=== PATIENT | female | born 1950 | race Caucasian/White ===

== ENCOUNTER → 2016-09-18 | Outpatient (CLI) | payer MEDICARE, OTHER ==
--- NOTE | 2016-09-18 20:50 | CT ---
EXAMINATION TYPE: CT abdomen pelvis wo con DATE OF EXAM: 09/18/2016 8:10 PM COMPARISON: 10/14/2011 HISTORY: Abdominal distention CT DLP: 315.3 mGycm Automated exposure control for dose reduction was used. TECHNIQUE: Helical acquisition of images was performed from the lung bases through the pelvis. FINDINGS: &&&&&&&&&&& IMPRESSION: RIGHT NEPHRECTOMY. MODERATE ATHEROSCLEROTIC VASCULAR DISEASE. THERE IS PROBABLY HEMODYNAMICALLY SIGNI FICANT STENOSIS IN THE ILIAC ARTERIES. NO SIGN OF ACUTE ABDOMEN AND PELVIS. NO ADVERSE CHANGE COMPARE D TO OLD EXAM.
== END | disposition home or self-care (01) ==
LOC: RADCTMAIN 18:07
PROVIDERS: ATTEND Family Medicine
DX: I70.90 Unspecified atherosclerosis (principal); Z90.5 Acquired absence of kidney
CPT/HCPCS: 36415; 74176; 82565; 84520

== ENCOUNTER → 2016-11-09 | Outpatient (CLI) | payer MEDICARE, OTHER ==
--- NOTE | 2016-11-09 13:46 | MR ---
EXAMINATION TYPE: MR knee LT wo con DATE OF EXAM: 11/09/2016 1:34 PM COMPARISON: NONE HISTORY: Left knee pain TECHNIQUE: Multiplanar, multisequence imaging of the left knee is performed without IV contrast. FINDINGS: Exam limited by motion artifact. MEDIAL MENISCUS: Anterior and posterior horns are intact without tear. LATERAL MENISCUS: Anterior and posterior horns are intact without tear. CRUCIATE LIGAMENTS: The anterior and posterior cruciate ligaments are intact and unremarkable. COLLATERAL LIGAMENTS: The medial collateral ligament and lateral collateral ligament complex are inta ct and unremarkable. EXTENSOR MECHANISM: Visualized quadriceps and patellar tendons are intact. EFFUSION: Tiny amount of fluid in the suprapatellar bursa. POPLITEAL CYST: No popliteal/nazario cyst. TRICOMPARTMENT SPACES: There is fibrillation of the articular cartilage of the lateral femur. There i s a focal grade 3 area of chondromalacia involving the femoral and tibial articular cartilage with a 6 mm defect involving the medial femoral articular cartilage. No loose body. Joint space narrowing is seen correlate for osteoarthritis. No erosive changes. BONE MARROW SIGNAL: No focal abnormal marrow signal is appreciated. OTHER: No additional significant abnormality is appreciated. IMPRESSION: 1. Osteoarthritis with chondromalacia involving the medial and lateral compartments of the knee joint as discussed above. 2. No ligamentous or meniscal tear.
== END | disposition home or self-care (01) ==
LOC: RADMRIMAIN 12:18
PROVIDERS: ATTEND Orthopaedic Surgery
DX: M94.262 Chondromalacia, left knee (principal); M17.12 Unilateral primary osteoarthritis, left knee
CPT/HCPCS: 70551

== ENCOUNTER → 2016-11-09 | Outpatient (CLI) | payer MEDICARE, OTHER ==
--- NOTE | 2016-11-09 13:36 | MR ---
EXAMINATION TYPE: MR brain wo con DATE OF EXAM: 11/09/2016 1:18 PM COMPARISON: CT brain July 08, 2014. HISTORY: Frontal stroke per order. Symptoms of right-sided he aring loss per patient with left-sided weakness and numbness. TECHNIQUE: Multiplanar, multisequence imaging of the brain and brainstem is performed without IV cont rast. FINDINGS: Diffusion weighted images demonstrate no evidence of a recent infarct or other diffusion abnormality. There is no worrisome extra-axial fluid collection. There is persistent mild ventricular and sulcal p rominence. A few scattered foci of T2 periventricular hyperintensity are noted. There is old area of encephalomalacia in the right frontal lobe 7 and axial image 23 redemonstrated measuring approximatel y 3.4 x 1.4 cm. Midline structures demonstrate normal morphology. The craniocervical junction appears within normal limits. Normal vascular flow voids are present. There is moderate mucosal thickening in visualized po rtion of smaller left maxillary sinus. Remainder paranasal sinuses are clear. There is new thinning o f the right lens, correlate for cataract. Increased fluid signal left mastoid air cells is redemonstr ated. IMPRESSION: There is old infarct or encephalomalacia in the right frontal lobe redemonstrated. There is background of mild diffuse cerebral atrophy and chronic small vessel ischemic change. There is marquis pected chronic left-sided mastoiditis redemonstrated and chronic left maxillary sinus disease. No nina dence of a recent infarct.
== END | disposition home or self-care (01) ==
LOC: RADMRIMAIN 12:22
PROVIDERS: ATTEND Psychiatry & Neurology Neurology
DX: Z86.73 Personal history of transient ischemic attack (TIA), and cerebral infarction without residual deficits (principal)
CPT/HCPCS: 70551

== ENCOUNTER → 2017-06-01 | Outpatient (CLI) | payer MEDICARE, OTHER ==
[2017-06-01 08:14] LABS: Potassium 4.5 mmol/L (3.5-5.1)
== END | disposition home or self-care (01) ==
LOC: LABWHC1 07:16
PROVIDERS: ATTEND Psychiatry & Neurology Psychiatry
DX: Z51.81 Encounter for therapeutic drug level monitoring (principal); Z79.899 Other long term (current) drug therapy
CPT/HCPCS: 36415; 80051

== ENCOUNTER 2017-11-07 12:48 | Inpatient (IN) | payer MEDICARE, OTHER ==
[2017-11-07 13:17] LABS: Glucose,Whole Blood 93 mg/dL (75-99)
[2017-11-07] MEDS ORDERED: SODIUM CHLORIDE 0.9% 1,000 ML IV STA (13:23)
[2017-11-07] MEDS ORDERED: RX INFO: IV CONTRAST WAS GIVEN 1 EACH MISC MISCELLANE PRN (13:24)
--- NOTE | 2017-11-07 13:30 | ED ---
General Adult HPI - General Chief complaint: Weakness Stated complaint: neck swelling/ Time Seen by Provider: 11/07/17 13:13 Source: patient, family, RN notes reviewed Mode of arrival: wheelchair Limitations: no limitations - History of Present Illness Initial comments: Patient is a pleasant 67-year-old female presenting to the emergency department with complaints of right-sided neck pain. Onset was in the middle the night. Patient states discomfort is fairly persistent. Patient is somewhat a poor historian and daughter provides majority of history. No difficulty swallowing. Patient does feel somewhat short of breath. Patient has been shaky and somewhat weaker than normal recently. Patient has known 100% carotid stenosis on the right side since 2004. - Related Data Home Medications Medication Instructions Recorded Confirmed PARoxetine HCL 30 mg PO HS 07/02/14 11/07/17 OXcarbazepine [Trileptal] 150 mg PO HS 11/04/14 11/07/17 Melatonin 3 mg PO HS 03/05/16 11/07/17 Metoprolol Tartrate [Lopressor] 25 mg PO BID 03/05/16 11/07/17 PARoxetine HCL [Paxil] 30 mg PO DAILY 03/05/16 11/07/17 Atorvastatin Calcium [Lipitor] 20 mg PO DAILY 06/13/17 11/07/17 Calcium Polycarbophil [Fibercon] 1,250 mg PO DAILY 06/13/17 11/07/17 Clopidogrel Bisulfate [Plavix] 75 mg PO DAILY 06/13/17 11/07/17 Ferrous Sulfate [Iron (65 MG 325 mg PO DAILY 06/13/17 11/07/17 Elemental)] Furosemide [Lasix] 40 mg PO DAILY 06/13/17 11/07/17 Levothyroxine Sodium [Synthroid] 100 mcg PO DAILY 06/13/17 11/07/17 Lurasidone HCl [Latuda] 20 mg PO DAILY 06/13/17 11/07/17 Magnesium Oxide [Mag-Ox] 400 mg PO DAILY 06/13/17 11/07/17 Montelukast [Singulair] 10 mg PO HS 06/13/17 11/07/17 Pantoprazole Sodium [Protonix] 40 mg PO DAILY 06/13/17 11/07/17 Potassium Chloride [Klor-Con 10] 10 meq PO DAILY 06/13/17 11/07/17 Fluticasone/Vilanterol [Breo 1 puff INHALATION RT-DAILY 06/14/17 11/07/17 Ellipta 100-25 Mcg Inhaler] Tiotropium Leonidas [Spiriva] 1 cap INHALATION RT-DAILY 06/14/17 11/07/17 Previous Rx's Medication Instructions Recorded Rivaroxaban [Xarelto] 15 mg PO W/SUPPER #30 tab 06/16/17 Allergies Allergy/AdvReac Type Severity Reaction Status Date / Time latex Allergy Rash/Hives Verified 11/07/17 13:23 Penicillins Allergy Unknown Verified 11/07/17 13:23 Childhood Review of Systems ROS Statement: Those systems with pertinent positive or pertinent negative responses have been documented in the HPI. ROS Other: All systems not noted in ROS Statement are negative. Constitutional: Denies: fever Eyes: Denies: eye pain ENT: Denies: ear pain Respiratory: Reports: dyspnea. Denies: cough Cardiovascular: Denies: chest pain Endocrine: Reports: fatigue Gastrointestinal: Denies: abdominal pain Genitourinary: Denies: dysuria Musculoskeletal: Denies: back pain Skin: Denies: rash Neurological: Denies: weakness Past Medical History Past Medical History: Atrial Fibrillation, Coronary Artery Disease (CAD), Cancer , COPD, CVA/TIA, GERD/Reflux, Hyperlipidemia, Memory Impairment, Myocardial Infarction ([place]), Osteoarthritis (OA), Sleep Apnea/CPAP/BIPAP, Thyroid Disorder, Vascular Disorder Additional Past Medical History / Comment(s): 11/28/14 Pt presented to floor s/p PTCA with stenting by Dr. Bernal today. Other HX: VASCULAR DEMENTIA. NO CPAP/ BIPAP. Hypothyroidism, RESTLESS LEG, RIGHT CAROTID BLOCKED 40-60%. LEFT CAROTID 100% BLOCK-endarectomy done, hx kidney cancer, uses O2 PRN, diverticulosis, IBS, PVD Last Myocardial Infarction Date:: 11/03/14 History of Any Multi-Drug Resistant Organisms: C-DIFF Date of last positivie culture/infection: 2013 Past Surgical History: Cholecystectomy, Ear Surgery, Heart Catheterization With Stent, Hysterectomy, Orthopedic Surgery Additional Past Surgical History / Comment(s): 11/28/14 PTCA with stent, left CAROTID ENDARTERECTOMY. RIGHT NEPHRECTOMY. BILATERAL STENTS IN LOWER EXTREMITIES , L elbow surgery, R ear surgery for blockage. ankle Past Anesthesia/Blood Transfusion Reactions: Motion Sickness Date of Last Stent Placement:: 10/2014 Past Psychological History: Bipolar Smoking Status: Former smoker Past Alcohol Use History: None Reported Past Drug Use History: None Reported - Past Family History Mother Family Medical History: COPD Additional Family Medical History / Comment(s): Mother is . She from respiratory failure. Father Family Medical History: Coronary Artery Disease (CAD), Myocardial Infarction ([place] ) Additional Family Medical History / Comment(s): Father had gout General Exam Limitations: no limitations General appearance: alert, in no apparent distress Head exam: Present: atraumatic Eye exam: Present: normal appearance, PERRL, EOMI ENT exam: Present: normal oropharynx Neck exam: Present: normal inspection, tenderness (Tenderness to the right sternocleidomastoid muscle.), other (No swelling or discoloration.) Respiratory exam: Present: normal lung sounds bilaterally. Absent: chest wall tenderness Cardiovascular Exam: Present: tachycardia, irregular rhythm GI/Abdominal exam: Present: soft. Absent: tenderness Extremities exam: Present: normal inspection. Absent: pedal edema, calf tenderness Neurological exam: Present: alert, CN II-XII intact. Absent: motor sensory deficit Psychiatric exam: Present: normal affect, normal mood Skin exam: Present: normal color. Absent: rash Course Vital Signs 11/07/17 11/07/17 11/07/17 12:53 13:50 14:50 Temperature 96.9 F L Pulse Rate 80 97 88 Respiratory 20 16 18 Rate Blood Pressure 80/64 107/67 103/62 O2 Sat by Pulse 96 93 L 94 L Oximetry - Reevaluation(s) Reevaluation #1: 11/07/17 16:22 Patient does meet sepsis criteria diagnosed at 1622 secondary to elevated white blood cell count and tachycardia with urinary tract infection. Blood culture and lactic acid and IV antibiotics have been added. EKG Findings - EKG Comments: EKG Findings:: A. fib with rate of 111. QRS 106. QT 386. QTc 524. Right axis. Incomplete right bundle-branch block. No acute ST change. Medical Decision Making - Medical Decision Making Patient reevaluated and resting comfortably in bed. Patient and family were updated on results and plan. Case was discussed with Dr. Juárez, who will admit for [facility]. - Lab Data Result diagrams: 11/07/17 13:44 11/07/17 13:44 Lab Results 11/07/17 11/07/17 11/07/17 Range/Units 13:15 13:44 13:44 WBC 11.4 H (3.8-10.6) k/uL RBC 5.90 H (3.80-5.40) m/uL Hgb 15.0 (11.4-16.0) gm/dL Hct 48.3 H (34.0-46.0) % MCV 82.0 (80.0-100.0) fL MCH 25.4 (25.0-35.0) pg MCHC 31.0 (31.0-37.0) g/dL RDW 16.6 H (11.5-15.5) % Plt Count 351 (150-450) k/uL Neutrophils % 70 % Lymphocytes % 17 % Monocytes % 10 % Eosinophils % 2 % Basophils % 0 % Neutrophils # 7.9 H (1.3-7.7) k/uL Lymphocytes # 2.0 (1.0-4.8) k/uL Monocytes # 1.1 H (0-1.0) k/uL Eosinophils # 0.2 (0-0.7) k/uL Basophils # 0.0 (0-0.2) k/uL Hypochromasia Slight Anisocytosis Slight PT (9.0-12.0) sec INR (<1.2) APTT (22.0-30.0) sec Sodium (137-145) mmol/L Potassium (3.5-5.1) mmol/L Chloride (98-107) mmol/L Carbon Dioxide (22-30) mmol/L Anion Gap mmol/L BUN (7-17) mg/dL Creatinine (0.52-1.04) mg/dL Est GFR (CKD-EPI)AfAm (>60 ml/min/1.73 sqM) Est GFR (CKD-EPI)NonAf (>60 ml/min/1.73 sqM) Glucose (74-99) mg/dL POC Glucose (mg/dL) 93 (75-99) mg/dL POC Glu Nurse Infection Control ID McDaid, Mirian Calcium (8.4-10.2) mg/dL Total Bilirubin (0.2-1.3) mg/dL AST (14-36) U/L ALT (9-52) U/L Alkaline Phosphatase (38-126) U/L Total Creatine Kinase <20 L (30-135) U/L CK-MB (CK-2) 0.4 (0.0-2.4) ng/mL CK-MB (CK-2) Rel Index Troponin I <0.012 (0.000-0.034) ng/mL Total Protein (6.3-8.2) g/dL Albumin (3.5-5.0) g/dL Urine Color Urine Appearance (Clear) Urine pH (5.0-8.0) Ur Specific [place] (1.001-1.035) Urine Protein (Negative) Urine Glucose (UA) (Negative) Urine Ketones (Negative) Urine Blood (Negative) Urine Nitrite (Negative) Urine Bilirubin (Negative) Urine Urobilinogen (<2.0) mg/dL Ur Leukocyte Esterase (Negative) Urine RBC (0-5) /hpf Urine WBC (0-5) /hpf Ur Squamous Epith Cells (0-4) /hpf Hyaline Casts (0-2) /lpf Urine Mucus (None) /hpf 11/07/17 11/07/17 11/07/17 Range/Units 13:44 13:44 14:53 WBC (3.8-10.6) k/uL RBC (3.80-5.40) m/uL Hgb (11.4-16.0) gm/dL Hct (34.0-46.0) % MCV (80.0-100.0) fL MCH (25.0-35.0) pg MCHC (31.0-37.0) g/dL RDW (11.5-15.5) % Plt Count (150-450) k/uL Neutrophils % % Lymphocytes % % Monocytes % % Eosinophils % % Basophils % % Neutrophils # (1.3-7.7) k/uL Lymphocytes # (1.0-4.8) k/uL Monocytes # (0-1.0) k/uL Eosinophils # (0-0.7) k/uL Basophils # (0-0.2) k/uL Hypochromasia Anisocytosis PT 11.2 (9.0-12.0) sec INR 1.2 H (<1.2) APTT 24.6 (22.0-30.0) sec Sodium 139 (137-145) mmol/L Potassium 5.2 H (3.5-5.1) mmol/L Chloride 100 (98-107) mmol/L Carbon Dioxide 26 (22-30) mmol/L Anion Gap 13 mmol/L BUN 31 H (7-17) mg/dL Creatinine 1.45 H (0.52-1.04) mg/dL Est GFR (CKD-EPI)AfAm 43 (>60 ml/min/1.73 sqM) Est GFR (CKD-EPI)NonAf 38 (>60 ml/min/1.73 sqM) Glucose 76 (74-99) mg/dL POC Glucose (mg/dL) (75-99) mg/dL POC Glu Nurse Infection Control ID Calcium 9.7 (8.4-10.2) mg/dL Total Bilirubin 0.4 (0.2-1.3) mg/dL AST 21 (14-36) U/L ALT 26 (9-52) U/L Alkaline Phosphatase 102 (38-126) U/L Total Creatine Kinase (30-135) U/L CK-MB (CK-2) (0.0-2.4) ng/mL CK-MB (CK-2) Rel Index Troponin I (0.000-0.034) ng/mL Total Protein 6.6 (6.3-8.2) g/dL Albumin 3.9 (3.5-5.0) g/dL Urine Color Yellow Urine Appearance Cloudy H (Clear) Urine pH 6.5 (5.0-8.0) Ur Specific [place] 1.017 (1.001-1.035) Urine Protein Trace H (Negative) Urine Glucose (UA) Negative (Negative) Urine Ketones Trace H (Negative) Urine Blood Negative (Negative) Urine Nitrite Negative (Negative) Urine Bilirubin Negative (Negative) Urine Urobilinogen <2.0 (<2.0) mg/dL Ur Leukocyte Esterase Large H (Negative) Urine RBC 3 (0-5) /hpf Urine WBC 119 H (0-5) /hpf Ur Squamous Epith Cells 2 (0-4) /hpf Hyaline Casts 12 H (0-2) /lpf Urine Mucus Rare H (None) /hpf - Radiology Data Radiology results: report reviewed (Computed tomography scan of the neck shows esophageal thickening, obliteration of the right fossa of frozen meal or, interstitial lung disease and pulmonary nodule.) Disposition Clinical Impression: Urinary tract infection, Sepsis, Dehydration Disposition: ADMITTED IP TO THIS HOSP Referrals: Lolita Fraga DO [Primary Care Provider] - 1-2 days Decision Time: 16:22
[2017-11-07 13:53] LABS: Anisocytosis Slight; Basophils % (A) 0 %; Eosinophils # (A) 0.2 k/uL (0-0.7); Eosinophils % (A) 2 %; HCT 48.3 % (34.0-46.0); Hypochromasia Slight; Lymphocytes % (A) 17 %; MCH 25.4 pg (25.0-35.0); Mean Platelet Volume 7.1; Monocytes # (A) 1.1 k/uL (0-1.0); Monocytes % (A) 10 %; Neutrophils # (A) 7.9 k/uL (1.3-7.7); Neutrophils % (A) 70 %; Platelet Count 351 k/uL (150-450); RDW 16.6 % (11.5-15.5); WBC 11.4 k/uL (3.8-10.6)
[2017-11-07 14:01] LABS: Albumin 3.9 g/dL (3.5-5.0); Calcium 9.7 mg/dL (8.4-10.2); INR 1.2 (<1.2); Partial Thromboplastin Time 24.6 sec (22.0-30.0); Potassium 5.2 mmol/L (3.5-5.1); Prothrombin Time 11.2 sec (9.0-12.0); Total Bilirubin 0.4 mg/dL (0.2-1.3); Total Protein 6.6 g/dL (6.3-8.2)
[2017-11-07 14:13] LABS: Creatine Kinase <20 U/L (30-135)
--- NOTE | 2017-11-07 14:21 | XR ---
EXAMINATION TYPE: XR chest 2V DATE OF EXAM: 11/07/2017 COMPARISON: 06/14/2017 HISTORY: Weakness TECHNIQUE: Frontal and lateral views of the chest are obtained. FINDINGS: There are increased interstitial lung markings as seen on the prior exam of 06/14/2017. Priya pical sulci pleural plaquing is seen. Cardiac silhouette is mildly enlarged. Biapical lucency suggest s underlying emphysema. There is no focal air space opacity, pleural effusion, or pneumothorax seen. The cardiac silhouette size is within normal limits. The osseous structures are intact. Mild degen erative changes of the acromioclavicular joints and thoracic spine are noted. IMPRESSION: No acute cardiopulmonary process. Chronic diffuse interstitial lung markings raise suspi cion for underlying interstitial lung disease. Chronic findings also suggest underlying COPD.
[2017-11-07 14:26] LABS: Creatine Kinase MB 0.4 ng/mL (0.0-2.4); Troponin I <0.012 ng/mL (0.000-0.034)
--- NOTE | 2017-11-07 14:47 | CT ---
EXAMINATION TYPE: CT soft tissue neck wo con DATE OF EXAM: 11/07/2017 HISTORY: Neck swelling COMPARISON: NONE CT DLP: 481 mGycm. Automated Exposure Control for Dose Reduction was Utilized. TECHNIQUE: CT scan of the neck is performed without contrast, axial images are obtained, coronal and sagittal reformatted images are reviewed. FINDINGS: Airway: Vallecula and piriform sinuses are patent. True and false vocal cords are unremarkable. Upper trachea is patent. Oropharynx is also patent. Probable secretions are seen within the posterior naso pharynx although fossa of Rosenmuller on the right is obscured such as on series 3 image 24-year-old 18. Parotid/submandibular glands: Parotid glands and submandibular glands are symmetric without surroundi ng inflammatory change. Carotid/Vascular Structures: Evaluation of the vasculature is limited without contrast. Likely nonhem odynamically significant stenosis is seen within the left carotid bulb and common carotid artery as w ell as within the right common carotid artery and carotid bulb. Osseous Structures: Circumferential mucosal thickening to moderate degree is present within the left maxillary sinus. There is partial opacification of the left mastoid air cells. Within the nasopharynx copious inspissated secretions are noted. Remainder of the paranasal sinuses and mastoid air cells a re well aerated. Interlobular septal thickening is seen of the lung apices with 4 mm right apical tania g nodule. Centrilobular emphysematous changes mild. Other: No gross evidence of adenopathy within the neck. There is circumferential thickening of the up per esophagus measuring up to 7 mm. IMPRESSION: 1. Circumferential proximal esophageal thickening that could relate to esophagitis. 2. No superficial soft tissue swelling of the neck or gross evidence of adenopathy. 3. Copious secretions within the right nasopharynx and seen within the posterior nasopharynx. 4. Obliteration of the right fossa of Rosenmuller, partially obscured without contrast. ENT consultat ion and direct visualization is recommended to ensure no underlying mass. 5. Interseptal lobular thickening of the lung apices could relate to underlying interstitial edema or interstitial lung disease. Background mild centrilobular emphysematous changes are seen and there is a 4 mm right apical pulmonary nodule noted for which full evaluation with a CT thorax could be perfo rmed on a nonemergent basis.
[2017-11-07 15:09] LABS: Appearance,Urine Cloudy (Clear); Bilirubin,Urine Negative (Negative); Blood,Urine Negative (Negative); Color,Urine Yellow; Glucose,Urine (UA) Negative (Negative); Hyaline Casts,Urine 12 /lpf (0-2); Ketones,Urine Trace (Negative); Leukocyte Esterase,Urine Large (Negative); Mucus,Urine Rare /hpf; Nitrite,Urine Negative (Negative); PH, Urine 6.5 (5.0-8.0); Protein,Urine Trace (Negative); RBC,Urine 3 /hpf (0-5); Specific Gravity,Urine 1.017 (1.001-1.035); Squamous Epithelial Cell,Urine 2 /hpf (0-4); Urobilinogen,Urine <2.0 mg/dL (<2.0); WBC,Urine 119 /hpf (0-5)
[2017-11-07] MEDS ORDERED: cefTRIAXone IN SWFI 1,000 MG/10 ML SYRINGE IVP STA (16:19)
[2017-11-07] MEDS ORDERED: NALOXONE 0.4 MG/ML 1 ML VIAL IV PRN (16:23)
[2017-11-07] MEDS: SODIUM CHLORIDE 0.9% 1,000 ML IV SCH (17:02)
[2017-11-07] MEDS: METOPROLOL TARTRATE 25 MG TAB PO SCH (20:54)
[2017-11-07] MEDS: MONTELUKAST 10 MG TAB PO SCH (20:54)
[2017-11-07] MEDS: PARoxetine 10 MG TAB PO SCH (20:54)
[2017-11-07] MEDS: MELATONIN 3 MG TABLET PO SCH (20:54)
[2017-11-07] MEDS: ACETAMINOPHEN TAB 325 MG TAB PO PRN (20:56)
[2017-11-07] MEDS ORDERED: OXcarbazepine 150 MG TAB PO SCH (21:00)
[2017-11-08] MEDS: SODIUM CHLORIDE 0.9% 1,000 ML IV SCH ×4 (06:32→22:43)
[2017-11-08] MEDS: LEVOTHYROXINE 100 MCG TAB PO SCH (06:32)
[2017-11-08] MEDS ORDERED: PANTOPRAZOLE 40 MG TABLET PO SCH (07:30)
[2017-11-08] MEDS: cefTRIAXone IN SWFI 1,000 MG/10 ML SYRINGE IVP SCH (07:48)
[2017-11-08] MEDS: ATORVASTATIN 20 MG TAB PO SCH (07:49)
[2017-11-08] MEDS: FERROUS SULFATE 325 MG TAB PO SCH (07:49)
[2017-11-08] MEDS: MAGNESIUM OXIDE 400 MG TAB PO SCH (07:49)
[2017-11-08] MEDS: CLOPIDOGREL 75 MG TAB PO SCH (07:49)
[2017-11-08] MEDS: LURASIDONE 40 MG TAB PO SCH (07:49)
[2017-11-08] MEDS: PARoxetine 10 MG TAB PO SCH ×2 (07:49→22:36)
[2017-11-08] MEDS: CALCIUM POLYCARBOPHIL 625 MG TAB PO SCH (07:49)
[2017-11-08] MEDS: METOPROLOL TARTRATE 25 MG TAB PO SCH ×2 (07:50→22:36)
[2017-11-08] MEDS: IPRATROPIUM 0.5 MG/2.5 ML NEBU INHALATION SCH ×4 (08:15→20:39)
[2017-11-08] MEDS: SYMBICORT 80-4.5 MCG INHALER INHALATION SCH ×2 (08:15→20:39)
[2017-11-08] MEDS ORDERED: FUROSEMIDE 40 MG TAB PO SCH (09:00)
[2017-11-08] MEDS ORDERED: POTASSIUM CHLORIDE ER 10 MEQ TAB.ER.PRT PO SCH (09:00)
[2017-11-08] MEDS: ACETAMINOPHEN TAB 325 MG TAB PO PRN (13:22)
[2017-11-08] MEDS ORDERED: ONDANSETRON 4 MG/2 ML VIAL IVP PRN (14:16)
[2017-11-08] MEDS ORDERED: SODIUM POLYSTYRENE SULFONATE 15 GM/60 ML BOTTLE PO STA (14:29)
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
[2017-11-08] MEDS: PANTOPRAZOLE 40 MG/10 ML VIAL IVP SCH (15:11)
[2017-11-08] MEDS: RIVAROXABAN 15 MG TAB PO SCH (17:02)
--- NOTE | 2017-11-08 20:51 | P.OP ---
Date of Procedure: 11/08/17 Preoperative Diagnosis: Right nasopharyngeal and nasal swelling rule out mass Postoperative Diagnosis: Same Procedure(s) Performed: Flexible diagnostic nasal endoscopy Anesthesia: none Surgeon: Juan Carlos Gary Estimated Blood Loss (ml): 0 Pathology: none sent Condition: stable Disposition: PACU Indications for Procedure: This patient has had intermittent nosebleeds for the last 1-2 months. She is recently developed some right neck discomfort. She also has some right facial pain. Swelling was noted in the nose and nasopharynx and examination was recommended. Operative Findings: Patient has an inflammatory-type mass of the nose and nasopharynx covered with crusting and scabbing. Unable to get a direct visualization of this mass because of the crusting and scabbing that covers this mass. This may be inflammatory versus malignant. Description of Procedure: An EF type GP nasal endoscope was placed into the patient's nares bilaterally. The septum is deviated to the left. The patient was found to have some dryness to the left side of the nose but no tumors or masses are seen. The right side of the nose has a very large amount of crusting and scabbing its obliterating the nasal airway and a mass-type lesion is noted beyond that scabbing and crusting.
--- NOTE | 2017-11-08 21:00 | P.GSCN ---
History of Present Illness Consult date: 11/08/17 Reason for Consult: Right nasal mass Requesting physician: Pam Tamayo History of present illness: This is a 67-year-old female who has had long-standing complaints of recurring epistaxis in the right nares. Yesterday she started having some significant right neck pain. She is also had right facial pain and orbital pain over the last 1-2 weeks. CAT scan of the neck revealed a unusual swelling to the right nose and right nasopharynx obliterating the fossa of Rosenmuller. A mass was suspect. I've been asked to consult regarding this suspected nasal and her sinonasal mass. The patient having right facial pain right neck pain nasal congestion. She's had intermittent epistaxis but the patient is on some blood thinners. Review of Systems - Constitutional Constitutional Comment(s): Right neck pain Reports anorexia - EENT Eyes: denies decreased vision, denies diplopia Ears, nose, mouth and throat: Reports ant. neck pain, Reports headache, Reports post-nasal drip, Reports sinus pain, Reports sinus pressure, Denies mouth pain - Cardiovascular Denies chest pain - Respiratory Denies congestion - Gastrointestinal Denies belching - Genitourinary Genitourinary: Denies difficulty voiding Menstruation: Reports amenorrhea - Musculoskeletal Denies fractures - Integumentary Denies acne, Denies boils - Neurological Denies aphasia, Denies ataxia, Denies balance difficulties - Psychiatric Denies anxiety, Denies anxiety attacks, Denies difficulty concentrating - Endocrine Denies deepening of the voice, Denies excessive sweating - Hematologic/Lymphatic Reports easy bleeding, Reports easy bruising - Allergic/Immunologic Denies allergic rhinitis Past Medical History Past Medical History: Atrial Fibrillation, Coronary Artery Disease (CAD), Cancer , COPD, CVA/TIA, GERD/Reflux, Hyperlipidemia, Memory Impairment, Myocardial Infarction ([place]), Osteoarthritis (OA), Sleep Apnea/CPAP/BIPAP, Thyroid Disorder, Vascular Disorder Additional Past Medical History / Comment(s): 11/28/14 Pt presented to floor s/p PTCA with stenting by Dr. Bernal today. Other HX: VASCULAR DEMENTIA. NO CPAP/ BIPAP. Hypothyroidism, RESTLESS LEG, right internal carotid artery completely occluded. 50-69% stenosis in the left internal carotid artery done, hx kidney cancer, uses O2 PRN, diverticulosis, IBS, PVD, cdiff 2013 Last Myocardial Infarction Date:: 11/03/14 History of Any Multi-Drug Resistant Organisms: None Reported Year Discovered:: 2013 Past Surgical History: Cholecystectomy, Ear Surgery, Heart Catheterization With Stent, Hysterectomy, Orthopedic Surgery Additional Past Surgical History / Comment(s): 11/28/14 PTCA with stent, left CAROTID ENDARTERECTOMY. RIGHT NEPHRECTOMY. BILATERAL STENTS IN LOWER EXTREMITIES , L elbow surgery, R ear surgery for blockage. 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 Pt lives with anam who is also her legal guardian. Uses cane at home and a walker on occasion, home O2 prn-pt rarely need to use. Smoking Status: Former smoker Past Alcohol Use History: None Reported Past Drug Use History: None Reported - Past Family History Mother Family Medical History: COPD Additional Family Medical History / Comment(s): Mother is . She from respiratory failure. Father Family Medical History: Coronary Artery Disease (CAD), Myocardial Infarction ([place] ) Additional Family Medical History / Comment(s): Father had gout Medications and Allergies Home Medications Medication Instructions Recorded Confirmed Type PARoxetine HCL 30 mg PO HS 07/02/14 11/07/17 History OXcarbazepine [Trileptal] 150 mg PO HS 11/04/14 11/07/17 History Melatonin 3 mg PO HS 03/05/16 11/07/17 History Metoprolol Tartrate [Lopressor] 25 mg PO BID 03/05/16 11/07/17 History PARoxetine HCL [Paxil] 30 mg PO DAILY 03/05/16 11/07/17 History Atorvastatin Calcium [Lipitor] 20 mg PO DAILY 06/13/17 11/07/17 History Calcium Polycarbophil [Fibercon] 1,250 mg PO DAILY 06/13/17 11/07/17 History Clopidogrel Bisulfate [Plavix] 75 mg PO DAILY 06/13/17 11/07/17 History Ferrous Sulfate [Iron (65 MG 325 mg PO DAILY 06/13/17 11/07/17 History Elemental)] Furosemide [Lasix] 40 mg PO DAILY 06/13/17 11/07/17 History Levothyroxine Sodium [Synthroid] 100 mcg PO DAILY 06/13/17 11/07/17 History Lurasidone HCl [Latuda] 20 mg PO DAILY 06/13/17 11/07/17 History Magnesium Oxide [Mag-Ox] 400 mg PO DAILY 06/13/17 11/07/17 History Montelukast [Singulair] 10 mg PO HS 06/13/17 11/07/17 History Pantoprazole Sodium [Protonix] 40 mg PO DAILY 06/13/17 11/07/17 History Potassium Chloride [Klor-Con 10] 10 meq PO DAILY 06/13/17 11/07/17 History Fluticasone/Vilanterol [Breo 1 puff INHALATION RT-DAILY 06/14/17 11/07/17 History Ellipta 100-25 Mcg Inhaler] Tiotropium [place] [Spiriva] 1 cap INHALATION RT-DAILY 06/14/17 11/07/17 History Rivaroxaban [Xarelto] 15 mg PO W/SUPPER #30 tab 06/16/17 11/07/17 Rx Allergies Allergy/AdvReac Type Severity Reaction Status Date / Time latex Allergy Rash/Hives Verified 11/07/17 13:23 Penicillins Allergy Unknown Verified 11/07/17 13:23 Childhood Surgical - Exam Osteopathic Statement: *. No significant issues noted on an osteopathic structural exam other than those noted in the History and Physical/Consult. Vital Signs Temp Pulse Resp BP Pulse Ox 96.9 F L 80 20 80/64 96 11/07/17 12:53 11/07/17 12:53 11/07/17 12:53 11/07/17 12:53 11/07/17 12:53 - General well developed, well nourished - Eyes PERRL, normal ocular movement - ENT Head is normocephalic the face is symmetric there's some mild tenderness to the right maxillary sinus. His intranasal crusting and scabbing noted on the right. Ears are well-formed canals clear tympanic membrane shows a previous perforation on the left side that sealed. Both tympanic membranes are thickened. The throat reveals no pathology no teeth are noted in the upper hard palate. Neck shows no tumors or masses there is some tenderness to the right neck. normal pinna, normal nares, normal mucosa, no hearing loss - Neck no masses, no bruits, trachea midline, other (Right neck pain is demonstrated, tender) - Respiratory normal expansion, normal respiratory effort - Integumentary no rash, no growths - Neurologic normal coordination, normal sensation - Musculoskeletal normal posture - Psychiatric oriented to time, oriented to person Results - Labs 11/07/17 13:44 11/07/17 13:44 Microbiology - Last 24 Hours (Table) 11/07/17 14:53 Urine Culture - Final Urine,Voided Strep agalactiae - (group b) 11/07/17 16:53 Blood Culture - Preliminary Blood No Growth after 24 hours Assessment and Plan (1) Nasal mass Current Visit: Yes Status: Acute Code(s): R22.0 - LOCALIZED SWELLING, MASS AND LUMP, HEAD SNOMED Code(s): 310734972 (2) Nasopharyngeal mass Current Visit: Yes Status: Acute Code(s): J39.2 - OTHER DISEASES OF PHARYNX SNOMED Code(s): 661582262 Plan: This patient has a large amount of crusting and scabbing which obliterates my clear view of this suspected right nasal mass. I'm unable to do a nasal cleaning here at bedside because of limitations of the patient's tolerance and equipment. The patient's on multiple anticoagulants. I am recommending that this patient come to my office after discharge where we will anesthetize her nose with a spray and cleaning out the right side of the nose. All the crusting and scabbing starting get a better look. We may need to take her into the operating room and do a biopsy. Clearly we would need guidance as to when we could discontinue her blood thinners i.e. Plavix and xaralto. I've expresses to the patient and the patient's guardian. They understand that they need to come to the office after discharge so we can do a nasal cleaning and assess her for possible biopsy. All risks, benefits, and alternative therapies regarding this biopsy were discussed. I did give consent signed and we will placed in the chart but because of the patient's need for blood thinners, we will postpone this until we get cardiac opinion. Time with Patient: Greater than 30
[2017-11-08] MEDS: GABAPENTIN 100 MG CAP PO SCH (22:34)
[2017-11-08] MEDS: MELATONIN 3 MG TABLET PO SCH (22:36)
[2017-11-08] MEDS: MONTELUKAST 10 MG TAB PO SCH (22:36)
[2017-11-08] MEDS: DOCUSATE 100 MG CAP PO SCH (22:37)
[2017-11-09] MEDS: LEVOTHYROXINE 100 MCG TAB PO SCH (06:27)
[2017-11-09] MEDS: ACETAMINOPHEN TAB 325 MG TAB PO PRN (06:27)
[2017-11-09] MEDS: SYMBICORT 80-4.5 MCG INHALER INHALATION SCH ×2 (08:26→20:55)
[2017-11-09] MEDS: IPRATROPIUM 0.5 MG/2.5 ML NEBU INHALATION SCH ×4 (08:26→20:55)
[2017-11-09] MEDS: MAGNESIUM OXIDE 400 MG TAB PO SCH (08:38)
[2017-11-09] MEDS: FERROUS SULFATE 325 MG TAB PO SCH (08:38)
[2017-11-09] MEDS: CLOPIDOGREL 75 MG TAB PO SCH (08:39)
[2017-11-09] MEDS: ATORVASTATIN 20 MG TAB PO SCH (08:39)
[2017-11-09] MEDS: METOPROLOL TARTRATE 25 MG TAB PO SCH ×2 (08:39→20:23)
[2017-11-09] MEDS: DOCUSATE 100 MG CAP PO SCH ×2 (08:39→20:23)
[2017-11-09] MEDS: LURASIDONE 40 MG TAB PO SCH (08:39)
[2017-11-09] MEDS: cefTRIAXone IN SWFI 1,000 MG/10 ML SYRINGE IVP SCH (08:39)
[2017-11-09] MEDS: CALCIUM POLYCARBOPHIL 625 MG TAB PO SCH (08:39)
[2017-11-09] MEDS: PARoxetine 10 MG TAB PO SCH ×2 (08:39→20:23)
[2017-11-09] MEDS: SODIUM CHLORIDE 0.9% 1,000 ML IV SCH (08:41)
[2017-11-09] MEDS: PANTOPRAZOLE 40 MG/10 ML VIAL IVP SCH (08:42)
[2017-11-09 08:54] LABS: Anisocytosis Slight; Basophils % (A) 0 %; Eosinophils # (A) 0.3 k/uL (0-0.7); Eosinophils % (A) 3 %; HCT 45.8 % (34.0-46.0); HGB 14.3 gm/dL (11.4-16.0); Hypochromasia Slight; Lymphocytes % (A) 11 %; MCH 26.1 pg (25.0-35.0); MCHC 31.2 g/dL (31.0-37.0); MCV 83.5 fL (80.0-100.0); Mean Platelet Volume 6.8; Monocytes # (A) 0.6 k/uL (0-1.0); Monocytes % (A) 7 %; Neutrophils % (A) 77 %; Platelet Count 268 k/uL (150-450); RBC 5.49 m/uL (3.80-5.40); RDW 16.2 % (11.5-15.5); WBC 9.1 k/uL (3.8-10.6)
[2017-11-09 09:03] LABS: Albumin 3.3 g/dL (3.5-5.0); Calcium 8.9 mg/dL (8.4-10.2); Total Bilirubin 0.5 mg/dL (0.2-1.3); Total Protein 5.7 g/dL (6.3-8.2)
[2017-11-09 09:14] LABS: Potassium 4.9 mmol/L (3.5-5.1)
[2017-11-09] MEDS ORDERED: LORazepam 2 MG/ML INJ IV STA (09:37)
[2017-11-09] MEDS: GABAPENTIN 100 MG CAP PO SCH ×3 (10:06→21:00)
--- NOTE | 2017-11-09 10:08 | CONS ---
CONSULTATION DATE OF CONSULTATION: 11/08/2017. CHIEF COMPLAINT: Facial pain. HISTORY OF PRESENT ILLNESS: Mrs. Mckeon is a pleasant 67-year-old, female who is being evaluated today on 11/08/2017 by the neurology service per the request of Dr. Tamayo for right facial pain. The patient was brought into [facility] Emergency Room with complaints mainly of severe right-sided neck pain. A CT scan of the neck was done which showed evidence of esophagitis with no soft tissue swelling in the neck or any evidence of any significant adenopathy. There was evidence of copious secretion in the right nasopharynx. There was also evidence of obliteration of the right fossa of Rosenmuller. Any ENT consultation has been ordered to rule out any neoplastic process. The patient informs me that she has also been having sudden onset of excruciating pain involving her right maxillary region and orbit region. This sharp pain occurs for approximately 5 minutes and resolves spontaneously. She also reports hypersensitivity in the right face when these symptoms occur. They started happening a few weeks ago but have been occurring more frequently lately. She denies any recent facial trauma. Her above- mentioned CT scan of the neck also showed an incidental finding of a 4 mm right apical lung nodule. Pulmonology has been consulted. Regarding her facial pain, when it does occur, she rates it at 10/10 in intensity. She does also report a facial deficit of sensation on the right face. PAST MEDICAL HISTORY: Atrial fibrillation, coronary artery disease, cancer, chronic obstructive pulmonary disease, stroke, gastroesophageal reflux disease, dyslipidemia, history of myocardial infarction, arthritis, sleep apnea, hypothyroidism, vascular dementia, restless legs syndrome, right internal carotid artery occlusion, history of left internal carotid artery stenosis, renal cancer, history of right nephrectomy, peripheral vascular disease, history of left carotid endarterectomy. SOCIAL HISTORY: The patient is a former smoker. She denies any alcohol or drug use. FAMILY HISTORY: Positive for heart disease and chronic obstructive pulmonary disease. HOME MEDICATIONS: Reviewed in the chart. ALLERGIES: PENICILLIN and LATEX. REVIEW OF SYSTEMS: CONSTITUTIONAL: Positive for fatigue. EYES: As mentioned above. ENT: As mentioned above. CARDIOVASCULAR: Positive for history of atrial fibrillation. RESPIRATORY: Positive for occasional shortness of breath. NEUROLOGICAL: As mentioned above. GASTROINTESTINAL: Positive for occasional heartburn. GENITOURINARY: As mentioned above. DERMATOLOGICAL: Negative. MUSCULOSKELETAL: As mentioned above. ENDOCRINE: Positive for hypothyroidism. PSYCHIATRIC: Negative. PHYSICAL EXAM: Vital signs show a temperature of 96.3, pulse 75, respirations 16, blood pressure 126/80. GENERAL APPEARANCE: The patient is a thin female who appears to be in no acute distress. HEENT: Normocephalic, atraumatic, no facial asymmetry is seen. NECK: Supple with no masses felt. Tenderness to palpation is felt along the upper anterior right neck. CARDIOVASCULAR: Regular rate and rhythm. ABDOMEN: Nontender, nondistended. Extremities showed no edema or clubbing. NEUROLOGICAL EXAM: The patient is alert aware and oriented x3. Speech and language are normal. Strength is full in all 4 extremities. Sensory exam was normal to light touch in all 4 extremities. Cranial nerve testing showed decreased sensation on the right face compared to the left, mainly in the V2 and V3 distribution. No tremors or seizure- like activity is seen. IMPRESSION: 1. Right trigeminal neuralgia. 2. Neck pain. 3. Carotid stenosis. RECOMMENDATION: The patient is having symptoms consistent with trigeminal neuralgia on the right side. I had a lengthy discussion with her regarding treatment options. The treatment of choice would be with Tegretol, but this would not be a good option given that she is on Xarelto for anticoagulation and this will have a drug interaction. I will try her on Neurontin 200 mg t.i.d. for now. This dose will need to be increased in the near future. I will discontinue Trileptal. An MRI of the brain has been ordered. I will add an MRA of the brain and neck. Regarding her other findings, Pulmonology and ENT have been consulted. Continue neuro checks. I will continue to follow with you. Further recommendations to follow. Thank you for allowing me to participate in the care of your patient. If you have any questions, please feel free to contact me. MMODL / IJN: [id number] /
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
--- NOTE | 2017-11-09 15:02 | CDI ---
Last Revision, July 2017 Documentation Clarification Form Date: November 09, 2017 From: Marycruz Bray RN Admit Date: 11/09/2017 8:07:00 AM Patient Name: Kathy Mckeon Visit Number: [id number] ATTENTION: The Clinical Documentation Specialists (CDI) and [facility] Coding Staff appreciate your assistance in clarifying documentation. Please respond to the clarification below the line at the bottom and electronically sign. The CDI & [facility] Coding staff will review the response and follow-up if needed. Please note: Queries are made part of the Legal Health Record. If you have any questions, please contact the author of this message via ITS. Dr. Pam Tamayo, Documentation from the ED included "Sepsis" History/Risk Factors: afib, copd, smoker, vascular dementia, cad, stents, mi, hypothyroidism, cva, hyperlipidemia, sleep apnea, bipolar, kidney cancer Clinical Indicators: WBC on admission: 11.4 Lactic acid: 1.1 Vitals signs on admission: T 96.9, P 80, R 20, 80/64, 96% RA Other Clinical Indicators: UTI strep agalactiae Treatment: Antibiotics: IV Rocephin monitor labs In your professional opinion, please clarify if these findings signify one of the following conditions, whether the condition is POA, and cause, if known: Sepsis ruled in Sepsis ruled out Other, please specify Unable to determine Present on Admission: Yes No Please continue to document in your progress notes, under the line below and/or in the discharge summary in order to capture severity of illness and risk of mortality. Include clinical findings that support your diagnosis. - forward this to Ashley/Dr. Robin REYES
--- NOTE | 2017-11-09 15:07 | MR ---
EXAMINATION TYPE: MR angio head wo con DATE OF EXAM: 11/09/2017 COMPARISON: Same day MRA neck study. HISTORY: Facial pain, r/o aneurysm TECHNIQUE: Time of flight images focusing on the Magna of [place] were performed without contrast.. 2-D and 3-D postprocessing imaging is performed on MRI scanner. FINDINGS: Exam is suboptimal due to artifact degradation. There is nonvisualized right vertebral maggie ry consistent with congenital hypoplasia or acquired occlusion. Some retrograde flow into distal righ t vertebral artery is noted. No significant focal stenosis or aneurysmal change is seen in the grid maker ior circulation. There are hypoplastic posterior communicating arteries identified bilaterally. There is occluded right internal carotid artery. There is some flow right A2 segment due to patent an terior communicating artery. Left-sided middle and anterior cerebral arteries show no significant foc al stenosis or aneurysmal change. IMPRESSION: Completely occluded right vertebral and internal carotid arteries. No aneurysm at level o f chitimacha of [place] noted.
--- NOTE | 2017-11-09 15:39 | MR ---
EXAMINATION TYPE: MR brain wo/w mraneck wo/w con DATE OF EXAM: 11/09/2017 COMPARISON: Carotid ultrasound June 14, 2017. Prior MRI brain June 14, 2017. CT brain May 242016 HISTORY: Facial pain and numbness. History of peripheral vascular disease. TECHNIQUE: Multiplanar, multisequence images of the head are performed without and with IV contrast, utilizing 7 .5 mL intravenous Gadavist . 2-D and 3-D reconstructed images are created on MRI scanner of the neck. FINDINGS: Exam is suboptimal as there is motion artifact degradation present. BRAIN: Diffusion weighted images demonstrate no evidence of a recent infarct or other diffusion abnormality. There is no worrisome extra-axial fluid collection. There is ventricular and sulcal prominence cons istent with diffuse cerebral atrophy. There is slightly more prominent symmetric atrophy of bilateral frontal lobes redemonstrated. There is redemonstration of area of old infarct or encephalomalacia ri ght frontal lobe at level of muniz radiata with superior central [place] extension unchanged from prio r studies seen best near axial image 21. Old cortical insult high left posterior frontal region near axial image 27 is unchanged from prior study. Midline structures demonstrate normal morphology. The craniocervical junction appears within normal limits. Post contrast images demonstrate significant artifact degradation without obvious enhancing mass. The dural venous sinuses appear patent. There is persistent moderate mucosal thickening in left maxillary sinus. Remainder paranasal sinuses are grossly clear. Globes are intact bilaterally. Incre ased fluid signal left mastoid air cells remains present IMPRESSION: 1. No evidence of a recent infarct. 2. Mild diffuse cerebral atrophy with slightly more prominent mild to moderate bilateral frontal lobe atrophy, right frontal lobe infarct and higher smaller left frontal lobe infarct all redemonstrated without significant interval change from prior studies. 3. Stable increased fluid left mastoid air cells likely reflects retained secretions, underlying mast oiditis should be excluded clinically. NECK: There is normal three-vessel origin from aortic arch. Evaluation suboptimal due to significant artifa ct degradation. There is no visualized flow in right common or internal carotid arteries consistent w ith complete occlusion at origin of right common carotid artery which correlates with prior carotid u ltrasound. There is no significant stenosis in right common or internal carotid artery. There is wooten nt external carotid artery without significant stenosis. There is suspected new occlusion of right vertebral artery near origin. Some retrograde flow distally near basilar junction is felt present. Left vertebral artery is patent to basilar junction without s ignificant stenosis. IMPRESSION: 1. Complete occlusion right common and internal carotid artery redemonstrated. 2. New complete occlusion of right vertebral artery at origin suspected.
--- NOTE | 2017-11-09 15:58 | P.CNPUL ---
History of Present Illness Consult date: 11/09/17 Requesting physician: Pam Tamayo Reason for consult: dyspnea, abnormal CXR/CT, other Chief complaint: Right upper lobe 4 mm nodule, incidental finding History of present illness: Kathy is a 67-year-old white female patient of Dr. Lolita Fraga, who presented to the emergency department on 11/07/2017 at 1248 with complaints of acute right-sided neck pain, in addition to excruciating right maxillary sinus and right orbital area pain, mild dyspnea, recurrent nosebleeds, weakness. Patient states she has had intermittent nosebleeds for most of her life. But this past Wednesday on 11/07/2017 she woke up out of her sleep at 3:00 in the morning with acute onset right neck pain, right facial pain and right orbital pain, shaking, weakness. She denies any fever, but did have chills. 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 This CT also showed intraseptal lobular thickening of the lung apices, that could possibly related to underlying interstitial edema or interstitial lung disease. There was a 4 mm right apical pulmonary nodule noted on the CT. 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 Patient is currently on Xarelto for her underlying history of A. fib. She was advised to have a biopsy of the nasopharyngeal mass on an outpatient basis. Patient still has the nosebleed, after she blows her nose. Denies any acute dyspnea at this time. Patient is a former smoker, she quit smoking 6 or 7 years ago, but prior to that smoked 2 packs a day for 47 years, since the age of 14. She does have a diagnosis of COPD, not on any home oxygen, her maintenance inhalers include Breo -Ellipta, Spiriva. She states she used to see a farm contractor a while ago, but does not remember what her lung function was. She is fairly active on a regular basis, she states she goes to the [facility] 3 times a week, she states she swims and participates in regular exercise activities without significant shortness of breath. Patient has been afebrile, hemodynamically stable. Urinalysis revealed pyuria, urine culture was positive for group B strep agalactiae. Patient did admit to having urinary urgency, but denies any burning. She was started on IV Rocephin. We're asked to see the patient in regards to the 4 mm nodule in the right apex of the lung, which was an incidental finding on the CT of the neck. Review of Systems All systems: negative Constitutional: Denies chills, Denies fever Eyes: denies blurred vision, denies pain Ears, nose, mouth and throat: Reports epistaxis, Reports nasal congestion, Reports sinus pain, Reports sinus pressure, Denies headache, Denies sore throat Cardiovascular: Denies chest pain, Denies shortness of breath Respiratory: Reports dyspnea, Denies cough Gastrointestinal: Denies abdominal pain, Denies diarrhea, Denies nausea, Denies vomiting Genitourinary: Denies dysuria, Denies hematuria Musculoskeletal: Denies myalgias Integumentary: Denies pruritus, Denies rash Neurological: Denies numbness, Denies weakness Psychiatric: Denies anxiety, Denies depression Endocrine: Denies fatigue, Denies weight change Past Medical History Past Medical History: Atrial Fibrillation, Coronary Artery Disease (CAD), Cancer , COPD, CVA/TIA, GERD/Reflux, Hyperlipidemia, Memory Impairment, Myocardial Infarction (CA), Osteoarthritis (OA), Sleep Apnea/CPAP/BIPAP, Thyroid Disorder, Vascular Disorder Additional Past Medical History / Comment(s): 11/28/14 Pt presented to floor s/p PTCA with stenting by Dr. Bernal today. Other HX: VASCULAR DEMENTIA. NO CPAP/ BIPAP. Hypothyroidism, RESTLESS LEG, right internal carotid artery completely occluded. 50-69% stenosis in the left internal carotid artery done, hx kidney cancer, uses O2 PRN, diverticulosis, IBS, PVD, cdiff 2013 Last Myocardial Infarction Date:: 11/03/14 History of Any Multi-Drug Resistant Organisms: None Reported Date of last positivie culture/infection: 2013 Past Surgical History: Cholecystectomy, Ear Surgery, Heart Catheterization With Stent, Hysterectomy, Orthopedic Surgery Additional Past Surgical History / Comment(s): 11/28/14 PTCA with stent, left CAROTID ENDARTERECTOMY. RIGHT NEPHRECTOMY. BILATERAL STENTS IN LOWER EXTREMITIES , L elbow surgery, R ear surgery for blockage. 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 Pt lives with anam who is also her legal guardian. Uses cane at home and a walker on occasion, home O2 prn-pt rarely need to use. Smoking Status: Former smoker Past Alcohol Use History: None Reported Past Drug Use History: None Reported - Past Family History Mother Family Medical History: COPD Additional Family Medical History / Comment(s): Mother is . She from respiratory failure. Father Family Medical History: Coronary Artery Disease (CAD), Myocardial Infarction (CA ) Additional Family Medical History / Comment(s): Father had gout Medications and Allergies Home Medications Medication Instructions Recorded Confirmed Type PARoxetine HCL 30 mg PO HS 07/02/14 11/07/17 History OXcarbazepine [Trileptal] 150 mg PO HS 11/04/14 11/07/17 History Melatonin 3 mg PO HS 03/05/16 11/07/17 History Metoprolol Tartrate [Lopressor] 25 mg PO BID 03/05/16 11/07/17 History PARoxetine HCL [Paxil] 30 mg PO DAILY 03/05/16 11/07/17 History Atorvastatin Calcium [Lipitor] 20 mg PO DAILY 06/13/17 11/07/17 History Calcium Polycarbophil [Fibercon] 1,250 mg PO DAILY 06/13/17 11/07/17 History Clopidogrel Bisulfate [Plavix] 75 mg PO DAILY 06/13/17 11/07/17 History Ferrous Sulfate [Iron (65 MG 325 mg PO DAILY 06/13/17 11/07/17 History Elemental)] Furosemide [Lasix] 40 mg PO DAILY 06/13/17 11/07/17 History Levothyroxine Sodium [Synthroid] 100 mcg PO DAILY 06/13/17 11/07/17 History Lurasidone HCl [Latuda] 20 mg PO DAILY 06/13/17 11/07/17 History Magnesium Oxide [Mag-Ox] 400 mg PO DAILY 06/13/17 11/07/17 History Montelukast [Singulair] 10 mg PO HS 06/13/17 11/07/17 History Pantoprazole Sodium [Protonix] 40 mg PO DAILY 06/13/17 11/07/17 History Potassium Chloride [Klor-Con 10] 10 meq PO DAILY 06/13/17 11/07/17 History Fluticasone/Vilanterol [Breo 1 puff INHALATION RT-DAILY 06/14/17 11/07/17 History Ellipta 100-25 Mcg Inhaler] Tiotropium Constantia [Spiriva] 1 cap INHALATION RT-DAILY 06/14/17 11/07/17 History Rivaroxaban [Xarelto] 15 mg PO W/SUPPER #30 tab 06/16/17 11/07/17 Rx Allergies Allergy/AdvReac Type Severity Reaction Status Date / Time latex Allergy Rash/Hives Verified 11/07/17 13:23 Penicillins Allergy Unknown Verified 11/07/17 13:23 Childhood Physical Exam Vitals: Vital Signs Temp Pulse Pulse Resp BP Pulse Ox 11/09/17 15:00 96.1 F L 93 16 120/78 96 11/09/17 12:04 92 11/09/17 11:52 92 11/09/17 08:38 92 11/09/17 08:28 92 11/09/17 07:00 97.2 F L 92 16 135/81 93 L 11/08/17 23:00 97.9 F 84 20 102/63 91 L 11/08/17 20:51 98 11/08/17 20:39 98 Intake and Output 11/09/17 11/09/17 11/09/17 06:59 14:59 22:59 Intake Total 100 Balance 100 Intake: Oral 100 Other: # Voids 2 2 # Bowel Movements 0 0 GENERAL EXAM: Alert, pleasant, 67-year-old white female comfortable in no apparent distress. HEAD: Normocephalic/atraumatic. EYES: Normal reaction of pupils, equal size. Conjunctiva pink, sclera white. NOSE: Clear with pink turbinates. THROAT: No erythema or exudates. NECK: No masses, no JVD, no thyroid enlargement, no adenopathy. CHEST: No chest wall deformity. Symmetrical expansion. LUNGS: Equal air entry with no crackles, wheeze, rhonchi or dullness. CVS: Irregular rate and rhythm, normal S1 and S2, no gallops, no murmurs, no rubs ABDOMEN: Soft, nontender. No hepatosplenomegaly, normal bowel sounds, no guarding or rigidity. EXTREMITIES: No clubbing, no edema, no cyanosis, 2+ pulses and upper and lower extremities. MUSCULOSKELETAL: Muscle strength and tone normal. SPINE: No scoliosis or deformity SKIN: No rashes CENTRAL NERVOUS SYSTEM: Alert and oriented -3. No focal deficits, tone is normal in all 4 extremities. PSYCHIATRIC: Alert and oriented -3. Appropriate affect. Intact judgment and insight. Results - Laboratory Findings CBC and BMP: 11/09/17 08:05 11/09/17 08:05 PT/INR, D-dimer PT 11.2 sec (9.0-12.0) 11/07/17 13:44 INR 1.2 (<1.2) H 11/07/17 13:44 Abnormal lab findings: Abnormal Labs 11/07/17 11/07/17 11/07/17 13:44 13:44 13:44 WBC 11.4 H RBC 5.90 H Hct 48.3 H RDW 16.6 H Neutrophils # 7.9 H Monocytes # 1.1 H INR Potassium 5.2 H Chloride Carbon Dioxide BUN 31 H Creatinine 1.45 H Total Creatine Kinase <20 L Total Protein Albumin Urine Appearance Urine Protein Urine Ketones Ur Leukocyte Esterase Urine WBC Hyaline Casts Urine Mucus 11/07/17 11/07/17 11/09/17 13:44 14:53 08:05 WBC RBC 5.49 H Hct RDW 16.2 H Neutrophils # Monocytes # INR 1.2 H Potassium Chloride Carbon Dioxide BUN Creatinine Total Creatine Kinase Total Protein Albumin Urine Appearance Cloudy H Urine Protein Trace H Urine Ketones Trace H Ur Leukocyte Esterase Large H Urine WBC 119 H Hyaline Casts 12 H Urine Mucus Rare H 11/09/17 08:05 WBC RBC Hct RDW Neutrophils # Monocytes # INR Potassium Chloride 109 H Carbon Dioxide 19 L BUN Creatinine Total Creatine Kinase Total Protein 5.7 L Albumin 3.3 L Urine Appearance Urine Protein Urine Ketones Ur Leukocyte Esterase Urine WBC Hyaline Casts Urine Mucus - Diagnostic Findings CT scan - chest: report reviewed Additional studies: CT of the neck, brain MRA report reviewed. Assessment and Plan Plan: Assessment: #1. 4 mm right apical lung nodule, an incidental finding on the CT neck from completed for the purpose of investigation of acute right neck pain and right facial pain. Patient carries 2 pack a day for 47 years smoking history, this will be followed up on an outpatient basis with a CT chest with contrast. #2. Acute urinary tract infection. Urine culture is positive for group B strep agalactiae, initiated on IV Rocephin #3. Acute right facial, orbital pain and right neck pain, CT of the neck revealed a sinonasal mass, being followed by day ENT service who has performed a flexible diagnostic nasal endoscopy which revealed an inflammatory mass. Biopsy is recommended outpatient basis #4. Recurrent intermittent epistaxis probably secondary to the above #5. COPD, currently stable #6. Chronic A. fib, on anticoagulation with Xarelto #7. Acute kidney injury, possibly related to ATN, on admission creatinine was 1.45, currently is down to 0.94. Recovered #8. Mild hyperkalemia, present on admission, 5.2, down to 4.9, patient was given a dose of Kayexalate #9. Carotid artery stenosis, MRA of the head from 11/09/2017 revealed completely occluded right vertebral and internal carotid arteries. #10. History of vascular dementia #11. History of coronary artery disease with cardiac stents #12. History of myocardial infarction #13. History of renal cancer status post right nephrectomy Plan: Patient's COPD is stable at this time without any evidence of exacerbation. Continue nebulized treatments, continue Symbicort. The 4 mm right apical lung nodule will be followed up on on an outpatient basis with a CT chest with contrast. Patient will need a follow-up appointment with Dr. Ramirez in the office within 7-10 days after discharge. I performed a history & physical examination of the patient and discussed their management with my nurse practitioner, Mariam Calderon. I reviewed the nurse practitioner's note and agree with the documented findings and plan of care. Lung sounds are clear. The findings and the impression was discussed with the patient. I attest to the documentation by the nurse practitioner. Time with Patient: Greater than 30
[2017-11-09] MEDS: RIVAROXABAN 15 MG TAB PO SCH (17:24)
--- NOTE | 2017-11-09 17:34 | P.PN ---
Subjective Progress Note Date: 11/09/17 Principal diagnosis: Facial pain This pleasant 67-year-old female continuing be evaluated by the neurology service for right facial pain. She was brought in for severe right sided neck pain. CT showed evidence of esophagitis with no soft tissue swelling in the neck. He is being evaluated by ENT. Her symptoms have been happening for a few weeks and involved episodic right-sided facial pain. He denies any trauma. She was started on gabapentin and she thinks that seems to be helping with some of the pain. In my exam she is quite drowsy from Ativan she was given prior to her MRI. She had an MRI and MRA of the brain with no acute changes and no masses or enhancing lesions were identified. Objective - Vital Signs Vital signs: Vital Signs Temp 96.1 F L 11/09/17 15:00 Pulse 92 11/09/17 16:11 Resp 16 11/09/17 16:00 BP 120/78 11/09/17 15:00 Pulse Ox 96 11/09/17 15:00 Intake & Output 11/08/17 11/09/17 11/09/17 18:59 06:59 18:59 Intake Total 500 Balance 500 Intake: Oral 500 Other: Voiding Method Toilet Toilet # Voids 2 2 2 # Bowel Movements 0 0 0 - Constitutional General appearance: Present: average body habitus, cooperative, no acute distress - EENT Eyes: Present: EOMI, PERRLA. Absent: abnormal pupil, ptosis ENT: Present: hearing grossly normal - Neck Neck: Present: normal ROM. Absent: rigidity - Respiratory Respiratory: negative: prolonged expiration, prolonged inspiration - Cardiovascular Rhythm: irregularly irregular - Gastrointestinal General gastrointestinal: Absent: distended, tenderness - Neurologic Neurologic Comment(s): She is quite drowsy as stated above from her Ativan. She is easily awoken. And is oriented 3. Speech and language are normal. There is no lateralizing weakness. Sensory exam is normal in all extremities. She does have symptoms decreased sensation on the right side of the face in the V to and V3 distribution. No tremors or seizure-like activities are seen. - Labs CBC & Chem 7: 11/09/17 08:05 11/09/17 08:05 Labs: Abnormal Lab Results - Last 24 Hours (Table) 11/09/17 11/09/17 Range/Units 08:05 08:05 RBC 5.49 H (3.80-5.40) m/uL RDW 16.2 H (11.5-15.5) % Chloride 109 H (98-107) mmol/L Carbon Dioxide 19 L (22-30) mmol/L Total Protein 5.7 L (6.3-8.2) g/dL Albumin 3.3 L (3.5-5.0) g/dL Microbiology - Last 24 Hours (Table) 11/07/17 14:53 Urine Culture - Final Urine,Voided Strep agalactiae - (group b) 11/07/17 16:53 Blood Culture - Preliminary Blood No Growth after 24 hours Assessment and Plan (1) Right trigeminal neuralgia Current Visit: Yes Status: Suspected Code(s): G50.0 - TRIGEMINAL NEURALGIA SNOMED Code(s): 90615209 (2) Carotid stenosis Current Visit: Yes Status: Chronic Code(s): I65.29 - OCCLUSION AND STENOSIS OF UNSPECIFIED CAROTID ARTERY SNOMED Code(s): 29405502 (3) Nasopharyngeal mass Current Visit: Yes Status: Suspected Code(s): J39.2 - OTHER DISEASES OF PHARYNX SNOMED Code(s): 767654326 (4) Atrial fibrillation Current Visit: No Status: Chronic Code(s): I48.91 - UNSPECIFIED ATRIAL FIBRILLATION SNOMED Code(s): 46010421 Plan: Her symptoms are consistent with trigeminal neuralgia on the right. Again Tegretol would be the treatment of choice but is relatively contraindicated with Xarelto. She has been started on Neurontin and she does say that this is SO FAR. THIS CAN BE TITRATED OVER TIME TO AN EFFECTIVE DOSE. PULMONARY AND ENT WILL CONTINUE THEIR WORKUP ON HER ABNORMAL FINDINGS. WE CAN SEE HER IN AN OUTPATIENT SETTING. OTHERWISE NO FURTHER NEUROLOGICAL WORKUP IS NEEDED AT THIS TIME. I have performed a history and physical on the above patient. I have reviewed the above note, and agree.
[2017-11-09] MEDS: MONTELUKAST 10 MG TAB PO SCH (20:23)
[2017-11-09] MEDS: MELATONIN 3 MG TABLET PO SCH (20:24)
[2017-11-09] MEDS: traMADol 50 MG TAB PO PRN (20:24)
[2017-11-10] MEDS: ACETAMINOPHEN TAB 325 MG TAB PO PRN ×3 (00:01→23:52)
[2017-11-10] MEDS: LEVOTHYROXINE 100 MCG TAB PO SCH (06:52)
[2017-11-10] MEDS: IPRATROPIUM 0.5 MG/2.5 ML NEBU INHALATION SCH ×4 (07:11→21:02)
[2017-11-10] MEDS: SYMBICORT 80-4.5 MCG INHALER INHALATION SCH ×2 (07:11→21:02)
[2017-11-10] MEDS: CALCIUM POLYCARBOPHIL 625 MG TAB PO SCH (08:44)
[2017-11-10] MEDS: ATORVASTATIN 20 MG TAB PO SCH (08:44)
[2017-11-10] MEDS: DOCUSATE 100 MG CAP PO SCH ×2 (08:44→21:34)
[2017-11-10] MEDS: PARoxetine 10 MG TAB PO SCH ×2 (08:44→21:33)
[2017-11-10] MEDS: MAGNESIUM OXIDE 400 MG TAB PO SCH (08:44)
[2017-11-10] MEDS: FERROUS SULFATE 325 MG TAB PO SCH (08:44)
[2017-11-10] MEDS: GABAPENTIN 100 MG CAP PO SCH ×3 (08:44→21:33)
[2017-11-10] MEDS: LURASIDONE 40 MG TAB PO SCH (08:45)
[2017-11-10] MEDS: PANTOPRAZOLE 40 MG TABLET PO SCH (08:45)
[2017-11-10] MEDS: cefTRIAXone IN SWFI 1,000 MG/10 ML SYRINGE IVP SCH (08:45)
[2017-11-10] MEDS: METOPROLOL TARTRATE 25 MG TAB PO SCH ×2 (08:47→21:34)
[2017-11-10] MEDS: CLOPIDOGREL 75 MG TAB PO SCH (08:47)
[2017-11-10 08:49] LABS: Anisocytosis Slight; Basophils % (A) 0 %; Eosinophils # (A) 0.2 k/uL (0-0.7); Eosinophils % (A) 2 %; HCT 41.6 % (34.0-46.0); HGB 12.4 gm/dL (11.4-16.0); Hypochromasia Slight; Lymphocytes # (A) 1.3 k/uL (1.0-4.8); Lymphocytes % (A) 12 %; MCH 24.8 pg (25.0-35.0); MCHC 29.9 g/dL (31.0-37.0); Mean Platelet Volume 7.1; Monocytes # (A) 0.6 k/uL (0-1.0); Monocytes % (A) 6 %; Neutrophils # (A) 8.6 k/uL (1.3-7.7); Neutrophils % (A) 80 %; Platelet Count 276 k/uL (150-450); RBC 5.01 m/uL (3.80-5.40); RDW 16.7 % (11.5-15.5); WBC 10.8 k/uL (3.8-10.6)
[2017-11-10 09:09] LABS: Albumin 3.1 g/dL (3.5-5.0); Potassium 4.3 mmol/L (3.5-5.1); Total Bilirubin 0.4 mg/dL (0.2-1.3); Total Protein 5.4 g/dL (6.3-8.2)
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
--- NOTE | 2017-11-10 14:09 | P.PN ---
Subjective Progress Note Date: 11/10/17 Principal diagnosis: 4 mm right apical lung nodule Kathy is a 67-year-old white female patient of Dr. Lolita Fraga, who presented to the emergency department on 11/07/2017 at 1248 with complaints of acute right-sided neck pain, in addition to excruciating right maxillary sinus and right orbital area pain, mild dyspnea, recurrent nosebleeds, weakness. Patient states she has had intermittent nosebleeds for most of her life. But this past Wednesday on 11/07/2017 she woke up out of her sleep at 3:00 in the morning with acute onset right neck pain, right facial pain and right orbital pain, shaking, weakness. She denies any fever, but did have chills. 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 This CT also showed intraseptal lobular thickening of the lung apices, that could possibly related to underlying interstitial edema or interstitial lung disease. There was a 4 mm right apical pulmonary nodule noted on the CT. 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 Patient is currently on Xarelto for her underlying history of A. fib. She was advised to have a biopsy of the nasopharyngeal mass on an outpatient basis. Patient still has the nosebleed, after she blows her nose. Denies any acute dyspnea at this time. Patient is a former smoker, she quit smoking 6 or 7 years ago, but prior to that smoked 2 packs a day for 47 years, since the age of 14. She does have a diagnosis of COPD, not on any home oxygen, her maintenance inhalers include Breo -Ellipta, Spiriva. 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 She is fairly active on a regular basis, she states she goes to the [facility] 3 times a week, she states she swims and participates in regular exercise activities without significant shortness of breath. Patient has been afebrile, hemodynamically stable. Urinalysis revealed pyuria, urine culture was positive for group B strep agalactiae. Patient did admit to having urinary urgency, but denies any burning. She was started on IV Rocephin. We're asked to see the patient in regards to the 4 mm nodule in the right apex of the lung, which was an incidental finding on the CT of the neck. On 11/10/2017 patient seen again in follow-up. She is resting comfortably in bed, she states she has not had any episodes of epistaxis today. Her right facial and right neck pain are improving, neurology is following, and making adjustments to her medications for her trigeminal neuralgia. Lung sounds are positive for a few rhonchi, good air entry bilaterally, no wheezing. She remains on 2 L per nasal cannula, with a pulse ox at around 90-92%. She did have a fever of 101.1F last night at 2300. Low-grade fevers this morning. She remains on Rocephin for her acute urinary tract infection. Urine culture was positive for strep group B, although the colony count was low. Patient remains weak, she was advised to increase her activity today, sit up and ambulate with assistance. She states she is feeling better today compared to when she came in. WBC is 10.8, hemoglobin is 12.4, electrolytes and renal profile are within normal limits. From pulmonary standpoint patient is stable, we will sign off and follow the patient on an outpatient basis for the right millimeter right apical lung nodule. Objective - Vital Signs Vital signs: Vital Signs Temp 99.0 F 11/10/17 07:00 Pulse 81 11/10/17 11:18 Resp 16 11/10/17 11:18 BP 91/59 11/10/17 07:00 Pulse Ox 90 L 11/10/17 07:00 Intake & Output 11/09/17 11/10/17 11/10/17 18:59 06:59 18:59 Intake Total 500 Balance 500 Intake: Oral 500 Other: Voiding Method Toilet # Voids 2 1 # Bowel Movements 0 - Exam GENERAL EXAM: Alert, pleasant, 67-year-old white female comfortable in no apparent distress. HEAD: Normocephalic/atraumatic. EYES: Normal reaction of pupils, equal size. Conjunctiva pink, sclera white. NOSE: Clear with pink turbinates. THROAT: No erythema or exudates. NECK: No masses, no JVD, no thyroid enlargement, no adenopathy. CHEST: No chest wall deformity. Symmetrical expansion. LUNGS: Equal air entry with no crackles, wheeze, rhonchi or dullness. CVS: Irregular rate and rhythm, normal S1 and S2, no gallops, no murmurs, no rubs ABDOMEN: Soft, nontender. No hepatosplenomegaly, normal bowel sounds, no guarding or rigidity. EXTREMITIES: No clubbing, no edema, no cyanosis, 2+ pulses and upper and lower extremities. MUSCULOSKELETAL: Muscle strength and tone normal. SPINE: No scoliosis or deformity SKIN: No rashes CENTRAL NERVOUS SYSTEM: Alert and oriented -3. No focal deficits, tone is normal in all 4 extremities. PSYCHIATRIC: Alert and oriented -3. Appropriate affect. Intact judgment and insight. - Labs CBC & Chem 7: 11/10/17 08:06 11/10/17 08:06 Labs: Abnormal Lab Results - Last 24 Hours (Table) 11/10/17 11/10/17 Range/Units 08:06 08:06 WBC 10.8 H (3.8-10.6) k/uL MCH 24.8 L (25.0-35.0) pg MCHC 29.9 L (31.0-37.0) g/dL RDW 16.7 H (11.5-15.5) % Neutrophils # 8.6 H (1.3-7.7) k/uL Total Protein 5.4 L (6.3-8.2) g/dL Albumin 3.1 L (3.5-5.0) g/dL Microbiology - Last 24 Hours (Table) 11/07/17 16:53 Blood Culture - Preliminary Blood No Growth after 48 hours Assessment and Plan Plan: Assessment: #1. 4 mm right apical lung nodule, an incidental finding on the CT neck from completed for the purpose of investigation of acute right neck pain and right facial pain. Patient carries 2 pack a day for 47 years smoking history, this will be followed up on an outpatient basis with a CT chest with contrast. #2. Acute urinary tract infection. Urine culture is positive for group B strep agalactiae, initiated on IV Rocephin #3. Acute right facial, orbital pain and right neck pain, CT of the neck revealed a sinonasal mass, being followed by day ENT service who has performed a flexible diagnostic nasal endoscopy which revealed an inflammatory mass. Biopsy is recommended outpatient basis #4. Recurrent intermittent epistaxis probably secondary to the above #5. COPD, currently stable #6. Chronic A. fib, on anticoagulation with Xarelto #7. Acute kidney injury, possibly related to ATN, on admission creatinine was 1.45, currently is down to 0.94. Recovered #8. Mild hyperkalemia, present on admission, 5.2, down to 4.9, patient was given a dose of Kayexalate #9. Carotid artery stenosis, MRA of the head from 11/09/2017 revealed completely occluded right vertebral and internal carotid arteries. #10. History of vascular dementia #11. History of coronary artery disease with cardiac stents #12. History of myocardial infarction #13. History of renal cancer status post right nephrectomy Plan: Patient remains stable from pulmonary standpoint. Continue nebulized treatments , continue Symbicort. The 4 mm right apical lung nodule will be followed up on on an outpatient basis with a CT chest with contrast. We will sign off and follow the patient only on as-needed basis. Patient will need a follow-up appointment with Dr. Ramirez in the office within 7-10 days after discharge. Thank you for this consultation I performed a history & physical examination of the patient and discussed their management with my nurse practitioner, Mariam Calderon. I reviewed the nurse practitioner's note and agree with the documented findings and plan of care. Lung sounds positive for a few scattered rhonchi. The findings and the impression was discussed with the patient. I attest to the documentation by the nurse practitioner. Time with Patient: Less than 30
[2017-11-10] MEDS: RIVAROXABAN 15 MG TAB PO SCH (17:42)
[2017-11-10] MEDS: MELATONIN 3 MG TABLET PO SCH (21:34)
[2017-11-10] MEDS: MONTELUKAST 10 MG TAB PO SCH (21:35)
[2017-11-10] MEDS: ERTAPENEM 1 GM in SODIUM CHLORIDE 0.9% 50 ML IVPB SCH (21:35)
--- NOTE | 2017-11-10 23:02 | P.CONS ---
History of Present Illness - Reason for Consult Consult date: 11/10/17 - Chief Complaint Fever - History of Present Illness 67-year-old female with history of underlying COPD that is treated with Brieo-Eliipta and Spiriva but not on oxygen at home presents to Hospital feeling poorly for several days. She relates that she awoke with severe pain to the right side of her neck, right facial pain associated with fever and shaking chills and progressive weakness. She presented emergency center with these severe pains and underwent imaging studies. There was no evidence of any intracranial lesions but was without evidence of a significant obliteration of the right fossa of Rosenmuller. She did undergo flexible nasal endoscopy showed evidence of the right-sided nasal mass that had extensive crusting possibly due to bleeding from her Xarelto therapy. She was having extensive amounts of epistaxis that have now improved and she is blowing her nose much less as directed. Is related she will have outpatient evaluation and biopsy. The patient's neck pain and facial discomforts have improved since coming to Hospital being treated with medications and Rocephin. She over does develop recurrent fever, she's having some worsening shortness of breath, and is developed right-sided flank pain and urinary urgency and pelvic discomfort. With concerns to urinary tract infection, the significant abnormality to her sinuses the infectious diseases consultation was requested. The patient has been seen by pulmonary critical care for her abnormality which includes a 4 mm nodule in the right apex. Review of Systems HEENT:Denies headache or acute visual change. Denies mouth discomforts. This is improved. Denies oral pain. Significant sinus discomforts improving epistaxis improving Lungs: As per the HPI ongoing shortness of breath minimal cough no hemoptysis Cardiovascular: Denies significant shortness of breath, chest pain, chest wall pain, orthopnea, dyspnea on exertion, syncope Gastrointestinal:Denies nausea, vomiting, diarrhea, constipation, hematemesis, melena, hematochezia. No no significant change of bowel habit noticed. Musculoskeletal: denies significant myalgias or arthralgias. No new joint swelling. Denies new back pain. Skin: Denies new rash or lesions. No new ulcers or wounds are related.. Neuro: Denies headache or visual change. Denies any new onset of acute asymmetric weakness but has generalized weakness Psychiatric: Chronic anxiety Endocrine: Profound fatigue and worsening weight loss Past Medical History Past Medical History: Atrial Fibrillation, Coronary Artery Disease (CAD), Cancer , COPD, CVA/TIA, GERD/Reflux, Hyperlipidemia, Memory Impairment, Myocardial Infarction (NC), Osteoarthritis (OA), Sleep Apnea/CPAP/BIPAP, Thyroid Disorder, Vascular Disorder Additional Past Medical History / Comment(s): 11/28/14 Pt presented to floor s/p PTCA with stenting by Dr. Bernal today. Other HX: VASCULAR DEMENTIA. NO CPAP/ BIPAP. Hypothyroidism, RESTLESS LEG, right internal carotid artery completely occluded. 50-69% stenosis in the left internal carotid artery done, hx kidney cancer, uses O2 PRN, diverticulosis, IBS, PVD, cdiff 2013 Last Myocardial Infarction Date:: 11/03/14 History of Any Multi-Drug Resistant Organisms: None Reported Year Discovered:: 2013 Past Surgical History: Cholecystectomy, Ear Surgery, Heart Catheterization With Stent, Hysterectomy, Orthopedic Surgery Additional Past Surgical History / Comment(s): 11/28/14 PTCA with stent, left CAROTID ENDARTERECTOMY. RIGHT NEPHRECTOMY. BILATERAL STENTS IN LOWER EXTREMITIES , L elbow surgery, R ear surgery for blockage. 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 Pt lives with anam who is also her legal guardian. Uses cane at home and a walker on occasion, home O2 prn-pt rarely need to use. Has generally stopped tobacco use over the last several years but does occasionally smoke. Lives with a daughter who is an active smoker. Patient has a history of alcohol use in her youth no recent alcohol or recreational drug use. No experience. No international travel. No Animal exposures at this time Smoking Status: Former smoker Past Alcohol Use History: None Reported Past Drug Use History: None Reported - Past Family History Mother Family Medical History: COPD Additional Family Medical History / Comment(s): Mother is . She from respiratory failure. Father Family Medical History: Coronary Artery Disease (CAD), Myocardial Infarction ([place] ) Additional Family Medical History / Comment(s): Father had gout Medications and Allergies Home Medications and Allergies Comment(s): Current Medications Acetaminophen (Tylenol Tab) 650 mg PO Q6HR PRN PRN Reason: Fever and/ or Mild Pain Last Admin: 11/10/17 12:59 Dose: 650 mg Atorvastatin Calcium (Lipitor) 20 mg PO DAILY [facility] Last Admin: 11/10/17 08:44 Dose: 20 mg Budesonide/Formoterol Fumarate (Symbicort 80-4.5 Mcg Inhaler) 2 puff INHALATION RT-BID [facility] Last Admin: 11/10/17 21:02 Dose: 2 puff Calcium Polycarbophil (Fibercon) 1,250 mg PO DAILY [facility] Last Admin: 11/10/17 08:44 Dose: 1,250 mg Clopidogrel Bisulfate (Plavix) 75 mg PO DAILY [facility] Last Admin: 11/10/17 08:47 Dose: 75 mg Docusate Sodium (Colace) 100 mg PO BID [facility] Last Admin: 11/10/17 21:34 Dose: 100 mg Ferrous Sulfate (Feosol) 325 mg PO DAILY [facility] Last Admin: 11/10/17 08:44 Dose: 325 mg Gabapentin (Neurontin) 200 mg PO TID [facility] Last Admin: 11/10/17 21:33 Dose: 200 mg Ertapenem 1 gm/ Sodium (Chloride) 50 mls @ 100 mls/hr IVPB Q24H [facility] Last Admin: 11/10/17 21:35 Dose: 100 mls/hr Ipratropium [place] (Atrovent Nebulized) 0.5 mg INHALATION RT-QID [facility] Last Admin: 11/10/17 21:02 Dose: 0.5 mg Levothyroxine Sodium (Synthroid) 100 mcg PO DAILY@0630 [facility] Last Admin: 11/10/17 06:52 Dose: 100 mcg Lurasidone HCl (Latuda) 20 mg PO W/BRKFST [facility] Last Admin: 11/10/17 08:45 Dose: 20 mg Magnesium Oxide (Mag-Ox) 400 mg PO DAILY [facility] Last Admin: 11/10/17 08:44 Dose: 400 mg Melatonin (Melatonin) 3 mg PO HS [facility] Last Admin: 11/10/17 21:34 Dose: 3 mg Metoprolol Tartrate (Lopressor) 25 mg PO BID [facility] Last Admin: 11/10/17 21:34 Dose: 25 mg Montelukast Sodium (Singulair) 10 mg PO HS [facility] Last Admin: 11/10/17 21:35 Dose: 10 mg Multivitamins (Theragran) 1 each PO DAILY@1200 [facility] Naloxone HCl (Narcan) 0.2 mg IV Q2M PRN PRN Reason: Opioid Reversal Ondansetron HCl (Zofran) 4 mg IVP Q6HR PRN PRN Reason: Vomiting Pantoprazole Sodium (Protonix) 40 mg PO AC-BRKFST [facility] Last Admin: 11/10/17 08:45 Dose: 40 mg Paroxetine HCl (Paxil) 30 mg PO HS [facility] Last Admin: 11/10/17 21:33 Dose: 30 mg Paroxetine HCl (Paxil) 30 mg PO DAILY [facility] Last Admin: 11/10/17 08:44 Dose: 30 mg Rivaroxaban (Xarelto) 15 mg PO W/SUPPER [facility] Last Admin: 11/10/17 17:42 Dose: 15 mg Tramadol HCl (Ultram) 50 mg PO TID PRN PRN Reason: Moderate Pain Last Admin: 11/09/17 20:24 Dose: 50 mg Home Medications Medication Instructions Recorded Confirmed Type PARoxetine HCL 30 mg PO HS 07/02/14 11/07/17 History OXcarbazepine [Trileptal] 150 mg PO HS 11/04/14 11/07/17 History Melatonin 3 mg PO HS 03/05/16 11/07/17 History Metoprolol Tartrate [Lopressor] 25 mg PO BID 03/05/16 11/07/17 History PARoxetine HCL [Paxil] 30 mg PO DAILY 03/05/16 11/07/17 History Atorvastatin Calcium [Lipitor] 20 mg PO DAILY 06/13/17 11/07/17 History Calcium Polycarbophil [Fibercon] 1,250 mg PO DAILY 06/13/17 11/07/17 History Clopidogrel Bisulfate [Plavix] 75 mg PO DAILY 06/13/17 11/07/17 History Ferrous Sulfate [Iron (65 MG 325 mg PO DAILY 06/13/17 11/07/17 History Elemental)] Furosemide [Lasix] 40 mg PO DAILY 06/13/17 11/07/17 History Levothyroxine Sodium [Synthroid] 100 mcg PO DAILY 06/13/17 11/07/17 History Lurasidone HCl [Latuda] 20 mg PO DAILY 06/13/17 11/07/17 History Magnesium Oxide [Mag-Ox] 400 mg PO DAILY 06/13/17 11/07/17 History Montelukast [Singulair] 10 mg PO HS 06/13/17 11/07/17 History Pantoprazole Sodium [Protonix] 40 mg PO DAILY 06/13/17 11/07/17 History Potassium Chloride [Klor-Con 10] 10 meq PO DAILY 06/13/17 11/07/17 History Fluticasone/Vilanterol [Breo 1 puff INHALATION RT-DAILY 06/14/17 11/07/17 History Ellipta 100-25 Mcg Inhaler] Tiotropium [place] [Spiriva] 1 cap INHALATION RT-DAILY 06/14/17 11/07/17 History Rivaroxaban [Xarelto] 15 mg PO W/SUPPER #30 tab 06/16/17 11/07/17 Rx Allergies Allergy/AdvReac Type Severity Reaction Status Date / Time latex Allergy Rash/Hives Verified 11/07/17 13:23 Penicillins Allergy Unknown Verified 11/07/17 13:23 Childhood Physical Exam Vitals: Vital Signs Temp Pulse Pulse Resp BP Pulse Ox 11/10/17 21:14 97 11/10/17 21:03 99 11/10/17 16:38 110 H 11/10/17 16:29 113 H 11/10/17 15:00 99.7 F H 98 16 93/59 93 L 11/10/17 13:50 98.9 F 11/10/17 11:18 81 16 11/10/17 11:08 84 16 11/10/17 07:21 82 16 11/10/17 07:12 81 16 11/10/17 07:00 99.0 F 81 16 91/59 90 L 11/10/17 01:30 99.0 F 11/09/17 23:00 101.1 F H 96 20 104/73 92 L Intake and Output 11/10/17 11/10/17 11/10/17 06:59 14:59 22:59 Intake Total 100 Balance 100 Intake: Oral 100 Other: # Voids 1 2 2 67-year-old woman who has cachexia, seems to be mildly short of breath is having no active bleeding HEENT: Anicteric conjunctiva are pink and moist nasal mucosa grossly intact without significant lesions, there is no thrush. Nasal cavity without active bleeding Neck: The neck is supple without significant lymphadenopathy or thyromegaly. Lungs: Symmetrical air entry is noted, expiratory wheezes with the lung chamberlain, no paola bronchial sounds, no dullness or egophony Heart: Irregular with a soft S4. There is no significant murmur click or rub, PMI was nondisplaced. Abdomen: Positive bowel sounds soft and nontender without palpable masses or organomegaly. There was no guarding or rebound. Extremities: The upper extremities have excellent pulses they are symmetric, no significant petechiae or telangiectasia. No splinter hemorrhages were noted. The lower extremities are free from significant edema. The peripheral pulses were 2+ and symmetric. Neuro: Awake alert oriented to person place and time. There are no acute new gross focal sensory motor deficits. Results CBC & Chem 7: 11/10/17 08:06 11/10/17 08:06 Labs: Abnormal Lab Results - Last 24 Hours (Table) 11/10/17 11/10/17 11/10/17 Range/Units 08:06 08:06 08:06 WBC 10.8 H (3.8-10.6) k/uL MCH 24.8 L (25.0-35.0) pg MCHC 29.9 L (31.0-37.0) g/dL RDW 16.7 H (11.5-15.5) % Neutrophils # 8.6 H (1.3-7.7) k/uL C-Reactive Protein 36.6 H (<10.0) mg/L Total Protein 5.4 L (6.3-8.2) g/dL Albumin 3.1 L (3.5-5.0) g/dL Microbiology - Last 24 Hours (Table) 11/07/17 16:53 Blood Culture - Preliminary Blood No Growth after 72 hours Laboratory Results WBC 10.8 k/uL (3.8-10.6) H 11/10/17 08:06 RBC 5.01 m/uL (3.80-5.40) 11/10/17 08:06 Hgb 12.4 gm/dL (11.4-16.0) 11/10/17 08:06 Hct 41.6 % (34.0-46.0) 11/10/17 08:06 MCV 83.0 fL (80.0-100.0) 11/10/17 08:06 MCH 24.8 pg (25.0-35.0) L 11/10/17 08:06 MCHC 29.9 g/dL (31.0-37.0) L 11/10/17 08:06 RDW 16.7 % (11.5-15.5) H 11/10/17 08:06 Plt Count 276 k/uL (150-450) 11/10/17 08:06 Neutrophils % 80 % 11/10/17 08:06 Lymphocytes % 12 % 11/10/17 08:06 Monocytes % 6 % 11/10/17 08:06 Eosinophils % 2 % 11/10/17 08:06 Basophils % 0 % 11/10/17 08:06 Neutrophils # 8.6 k/uL (1.3-7.7) H 11/10/17 08:06 Lymphocytes # 1.3 k/uL (1.0-4.8) 11/10/17 08:06 Monocytes # 0.6 k/uL (0-1.0) 11/10/17 08:06 Eosinophils # 0.2 k/uL (0-0.7) 11/10/17 08:06 Basophils # 0.0 k/uL (0-0.2) 11/10/17 08:06 Hypochromasia Slight 11/10/17 08:06 Anisocytosis Slight 11/10/17 08:06 ESR 8 mm/hr (0-20) 11/10/17 08:06 PT 11.2 sec (9.0-12.0) 11/07/17 13:44 INR 1.2 (<1.2) H 11/07/17 13:44 APTT 24.6 sec (22.0-30.0) 11/07/17 13:44 Sodium 138 mmol/L (137-145) 11/10/17 08:06 Potassium 4.3 mmol/L (3.5-5.1) 11/10/17 08:06 Chloride 104 mmol/L (98-107) 11/10/17 08:06 Carbon Dioxide 25 mmol/L (22-30) 11/10/17 08:06 Anion Gap 9 mmol/L 11/10/17 08:06 BUN 15 mg/dL (7-17) 11/10/17 08:06 Creatinine 1.04 mg/dL (0.52-1.04) 11/10/17 08:06 Est GFR (CKD-EPI)AfAm 65 (>60 ml/min/1.73 sqM) 11/10/17 08:06 Est GFR (CKD-EPI)NonAf 56 (>60 ml/min/1.73 sqM) 11/10/17 08:06 Glucose 88 mg/dL (74-99) 11/10/17 08:06 POC Glucose (mg/dL) 93 mg/dL (75-99) 11/07/17 13:15 POC Glu [employer] ID Mirian Aleman 11/07/17 13:15 Plasma Lactic Acid Joshua 1.1 mmol/L (0.7-2.0) 11/07/17 16:53 Calcium 9.0 mg/dL (8.4-10.2) 11/10/17 08:06 Total Bilirubin 0.4 mg/dL (0.2-1.3) 11/10/17 08:06 AST 16 U/L (14-36) 11/10/17 08:06 ALT 29 U/L (9-52) 11/10/17 08:06 Alkaline Phosphatase 101 U/L (38-126) 11/10/17 08:06 Total Creatine Kinase <20 U/L (30-135) L 11/07/17 13:44 CK-MB (CK-2) 0.4 ng/mL (0.0-2.4) 11/07/17 13:44 CK-MB (CK-2) Rel Index 11/07/17 13:44 Troponin I <0.012 ng/mL (0.000-0.034) 11/07/17 13:44 C-Reactive Protein 36.6 mg/L (<10.0) H 11/10/17 08:06 Total Protein 5.4 g/dL (6.3-8.2) L 11/10/17 08:06 Albumin 3.1 g/dL (3.5-5.0) L 11/10/17 08:06 Urine Color Yellow 11/07/17 14:53 Urine Appearance Cloudy (Clear) H 11/07/17 14:53 Urine pH 6.5 (5.0-8.0) 11/07/17 14:53 Ur Specific [place] 1.017 (1.001-1.035) 11/07/17 14:53 Urine Protein Trace (Negative) H 11/07/17 14:53 Urine Glucose (UA) Negative (Negative) 11/07/17 14:53 Urine Ketones Trace (Negative) H 11/07/17 14:53 Urine Blood Negative (Negative) 11/07/17 14:53 Urine Nitrite Negative (Negative) 11/07/17 14:53 Urine Bilirubin Negative (Negative) 11/07/17 14:53 Urine Urobilinogen <2.0 mg/dL (<2.0) 11/07/17 14:53 Ur Leukocyte Esterase Large (Negative) H 11/07/17 14:53 Urine RBC 3 /hpf (0-5) 11/07/17 14:53 Urine WBC 119 /hpf (0-5) H 11/07/17 14:53 Ur Squamous Epith Cells 2 /hpf (0-4) 11/07/17 14:53 Hyaline Casts 12 /lpf (0-2) H 11/07/17 14:53 Urine Mucus Rare /hpf (None) H 11/07/17 14:53 Assessment and Plan (1) Fever Narrative/Plan: 67 year old female who presents to Hospital feeling quite poorly neck pain and sinus pain at admission. She was evaluated by otolaryngology and a spot evidence of a right nasal mass which he be further evaluated as an outpatient. She is been on Xarelto and the sinus area was crusted and bloody and with this issue Xarelto was held briefly and no more bleeding is noted. Her pain is markedly improved since coming to hospital. Patient however has developed recurrent fever and developed some right flank pain associated with some urinary frequency and worsening malaise. Has been followed evidence of urinary tract infection not responding well to current antibiotic therapy of Rocephin. The patient's blood cultures are negative and urine culture is finalized on his Streptococcus agalactiae which is group B strep. Patient overs developed fever and there is concerns to the sinus lesion as a potential ongoing source of fever given its significant obstructive process. We'll alter antibiotic therapy to Invanz and monitor her response. She has had an increased leukocytosis without evidence of steroid use. The patient does have known significant carotid disease that has been redemonstrated by her MRI with MRA. Current Visit: Yes Status: Acute Code(s): R50.9 - FEVER, UNSPECIFIED SNOMED Code(s): 794130390 (2) Leukocytosis Current Visit: Yes Status: Acute Code(s): D72.829 - ELEVATED WHITE BLOOD CELL COUNT, UNSPECIFIED SNOMED Code(s): 632340284 (3) COPD (chronic obstructive pulmonary disease) Current Visit: Yes Status: Acute Code(s): J44.9 - CHRONIC OBSTRUCTIVE PULMONARY DISEASE, UNSPECIFIED SNOMED Code(s): 57642604 (4) Nasal mass Current Visit: Yes Status: Acute Code(s): R22.0 - LOCALIZED SWELLING, MASS AND LUMP, HEAD SNOMED Code(s): 119302587 (5) Urinary tract infection Current Visit: Yes Status: Acute Code(s): N39.0 - URINARY TRACT INFECTION, SITE NOT SPECIFIED SNOMED Code(s): 73887425
[2017-11-11] MEDS: LEVOTHYROXINE 100 MCG TAB PO SCH (06:36)
[2017-11-11] MEDS: SYMBICORT 80-4.5 MCG INHALER INHALATION SCH ×2 (06:57→19:35)
[2017-11-11] MEDS: IPRATROPIUM 0.5 MG/2.5 ML NEBU INHALATION SCH ×4 (06:58→19:35)
--- NOTE | 2017-11-11 08:04 | CDI ---
Last Revision, July 2017 Documentation Clarification Form Date: November 11, 2017 From: Marycruz Bray Admit Date: 11/09/2017 8:07:00 AM Patient Name: Kathy Mckeon Visit Number: [id number] ATTENTION: The Clinical Documentation Specialists (CDI) and [facility] Coding Staff appreciate your assistance in clarifying documentation. Please respond to the clarification below the line at the bottom and electronically sign. The CDI & [facility] Coding staff will review the response and follow-up if needed. Please note: Queries are made part of the Legal Health Record. If you have any questions, please contact the author of this message via ITS. Dr. Abelardo Kelly and Ashley Peters, Documentation from the ED included "Sepsis" History/Risk Factors: afib, copd, smoker, vascular dementia, cad, stents, mi, hypothyroidism, cva, hyperlipidemia, sleep apnea, bipolar, kidney cancer Clinical Indicators: WBC on admission: 11.4 Lactic acid: 1.1 Blood cultures: neg Vitals signs on admission: T 96.9, P 80, R 20, 80/64, 96% RA Other Clinical Indicators: UTI strep agalactiae Treatment: Antibiotics: IV Rocephin monitor labs and vitals In your professional opinion, please clarify if these findings signify one of the following conditions, whether the condition is POA, and cause, if known: Sepsis ruled in Sepsis ruled out Other, please specify Unable to determine Present on Admission: Yes No Please continue to document in your progress notes and discharge summary in order to capture severity of illness and risk of mortality. Include clinical findings that support your diagnosis. MTDD
[2017-11-11 08:13] LABS: Anisocytosis Slight; Basophils % (A) 0 %; Eosinophils # (A) 0.2 k/uL (0-0.7); Eosinophils % (A) 1 %; HCT 45.8 % (34.0-46.0); HGB 13.8 gm/dL (11.4-16.0); Hypochromasia Moderate; Lymphocytes # (A) 1.5 k/uL (1.0-4.8); Lymphocytes % (A) 11 %; MCH 25.6 pg (25.0-35.0); MCHC 30.3 g/dL (31.0-37.0); MCV 84.7 fL (80.0-100.0); Mean Platelet Volume 7.3; Monocytes # (A) 0.7 k/uL (0-1.0); Monocytes % (A) 6 %; Neutrophils # (A) 10.8 k/uL (1.3-7.7); Neutrophils % (A) 81 %; Platelet Count 233 k/uL (150-450); RDW 16.8 % (11.5-15.5); WBC 13.4 k/uL (3.8-10.6)
[2017-11-11] MEDS: MAGNESIUM OXIDE 400 MG TAB PO SCH (08:47)
[2017-11-11] MEDS: PARoxetine 10 MG TAB PO SCH ×2 (08:47→20:41)
[2017-11-11] MEDS: LURASIDONE 40 MG TAB PO SCH (08:47)
[2017-11-11] MEDS: PANTOPRAZOLE 40 MG TABLET PO SCH (08:47)
[2017-11-11] MEDS: GABAPENTIN 100 MG CAP PO SCH ×3 (08:47→20:43)
[2017-11-11] MEDS: METOPROLOL TARTRATE 25 MG TAB PO SCH ×2 (08:47→20:40)
[2017-11-11] MEDS: CALCIUM POLYCARBOPHIL 625 MG TAB PO SCH (08:47)
[2017-11-11] MEDS: FERROUS SULFATE 325 MG TAB PO SCH (08:47)
[2017-11-11] MEDS: ATORVASTATIN 20 MG TAB PO SCH (08:47)
[2017-11-11] MEDS: CLOPIDOGREL 75 MG TAB PO SCH (08:47)
[2017-11-11 08:48] LABS: Albumin 3.6 g/dL (3.5-5.0); Calcium 9.1 mg/dL (8.4-10.2); Total Bilirubin 0.6 mg/dL (0.2-1.3); Total Protein 6.1 g/dL (6.3-8.2)
[2017-11-11] MEDS: DOCUSATE 100 MG CAP PO SCH ×2 (08:48→20:43)
[2017-11-11] MEDS: MULTIVITAMINS, THERA 1 EACH TAB PO SCH (13:03)
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
[2017-11-11] MEDS: ACETAMINOPHEN TAB 325 MG TAB PO PRN (15:52)
[2017-11-11] MEDS: SODIUM CHLORIDE 0.9% 1,000 ML IV SCH (18:24)
[2017-11-11] MEDS: RIVAROXABAN 15 MG TAB PO SCH (18:24)
[2017-11-11] MEDS: MELATONIN 3 MG TABLET PO SCH (20:42)
[2017-11-11] MEDS: MONTELUKAST 10 MG TAB PO SCH (20:42)
[2017-11-11] MEDS: ERTAPENEM 1 GM in SODIUM CHLORIDE 0.9% 50 ML IVPB SCH (20:46)
--- NOTE | 2017-11-12 | P.PN ---
Subjective Progress Note Date: 11/11/17 67-year-old female with history of underlying COPD that is treated with Brieo-Eliipta and Spiriva but not on oxygen at home presents to Hospital feeling poorly for several days. She relates that she awoke with severe pain to the right side of her neck, right facial pain associated with fever and shaking chills and progressive weakness. She presented emergency center with these severe pains and underwent imaging studies. There was no evidence of any intracranial lesions but was without evidence of a significant obliteration of the right fossa of Rosenmuller. She did undergo flexible nasal endoscopy showed evidence of the right-sided nasal mass that had extensive crusting possibly due to bleeding from her Xarelto therapy. She was having extensive amounts of epistaxis that have now improved and she is blowing her nose much less as directed. Is related she will have outpatient evaluation and biopsy. The patient's neck pain and facial discomforts have improved since coming to Hospital being treated with medications and Rocephin. She over does develop recurrent fever, she's having some worsening shortness of breath, and is developed right-sided flank pain and urinary urgency and pelvic discomfort. With concerns to urinary tract infection, the significant abnormality to her sinuses the infectious diseases consultation was requested. The patient has been seen by pulmonary critical care for her abnormality which includes a 4 mm nodule in the right apex. 11/11/2017 revealed the patient to be feeling somewhat better. She still had some fever within the last 24 hours. This evening she has no chills or rigors. She's been able to eat without great difficulties. Denies any new discomforts to her face or sinus, no active epistaxis. Objective - Vital Signs Vital signs: Vital Signs Temp 98.0 F 11/11/17 22:40 Pulse 86 11/11/17 22:40 Resp 17 11/11/17 22:40 BP 105/63 11/11/17 22:40 Pulse Ox 91 L 11/11/17 22:40 Intake & Output 11/11/17 11/11/17 11/12/17 06:59 18:59 06:59 Other: Voiding Method Toilet # Voids 1 2 - Exam 67-year-old woman who has cachexia, seems to be mildly short of breath is having no active bleeding HEENT: Anicteric conjunctiva are pink and moist nasal mucosa grossly intact without significant lesions, there is no thrush. Nasal cavity without active bleeding Neck: The neck is supple without significant lymphadenopathy or thyromegaly. Lungs: Symmetrical air entry is noted, expiratory wheezes with the lung chamberlain, no paola bronchial sounds, no dullness or egophony Heart: Irregular with a soft S4. There is no significant murmur click or rub, PMI was nondisplaced. Abdomen: Positive bowel sounds soft and nontender without palpable masses or organomegaly. There was no guarding or rebound. Extremities: The upper extremities have excellent pulses they are symmetric, no significant petechiae or telangiectasia. No splinter hemorrhages were noted. The lower extremities are free from significant edema. The peripheral pulses were 2+ and symmetric. Neuro: Awake alert oriented to person place and time. There are no acute new gross focal sensory motor deficits. - Labs CBC & Chem 7: 11/11/17 07:33 11/11/17 07:33 Labs: Abnormal Lab Results - Last 24 Hours (Table) 11/11/17 11/11/17 Range/Units 07:33 07:33 WBC 13.4 H (3.8-10.6) k/uL MCHC 30.3 L (31.0-37.0) g/dL RDW 16.8 H (11.5-15.5) % Neutrophils # 10.8 H (1.3-7.7) k/uL Carbon Dioxide 21 L (22-30) mmol/L Creatinine 1.06 H (0.52-1.04) mg/dL Total Protein 6.1 L (6.3-8.2) g/dL Microbiology - Last 24 Hours (Table) 11/07/17 16:53 Blood Culture - Preliminary Blood No Growth after 96 hours 11/10/17 00:30 Blood Culture - Preliminary Blood No Growth after 24 hours Laboratory Results WBC 13.4 k/uL (3.8-10.6) H 11/11/17 07:33 RBC 5.40 m/uL (3.80-5.40) 11/11/17 07:33 Hgb 13.8 gm/dL (11.4-16.0) 11/11/17 07:33 Hct 45.8 % (34.0-46.0) 11/11/17 07:33 MCV 84.7 fL (80.0-100.0) 11/11/17 07:33 MCH 25.6 pg (25.0-35.0) 11/11/17 07:33 MCHC 30.3 g/dL (31.0-37.0) L 11/11/17 07:33 RDW 16.8 % (11.5-15.5) H 11/11/17 07:33 Plt Count 233 k/uL (150-450) 11/11/17 07:33 Neutrophils % 81 % 11/11/17 07:33 Lymphocytes % 11 % 11/11/17 07:33 Monocytes % 6 % 11/11/17 07:33 Eosinophils % 1 % 11/11/17 07:33 Basophils % 0 % 11/11/17 07:33 Neutrophils # 10.8 k/uL (1.3-7.7) H 11/11/17 07:33 Lymphocytes # 1.5 k/uL (1.0-4.8) 11/11/17 07:33 Monocytes # 0.7 k/uL (0-1.0) 11/11/17 07:33 Eosinophils # 0.2 k/uL (0-0.7) 11/11/17 07:33 Basophils # 0.0 k/uL (0-0.2) 11/11/17 07:33 Hypochromasia Moderate 11/11/17 07:33 Anisocytosis Slight 11/11/17 07:33 ESR 8 mm/hr (0-20) 11/10/17 08:06 PT 11.2 sec (9.0-12.0) 11/07/17 13:44 INR 1.2 (<1.2) H 11/07/17 13:44 APTT 24.6 sec (22.0-30.0) 11/07/17 13:44 Sodium 138 mmol/L (137-145) 11/11/17 07:33 Potassium 5.0 mmol/L (3.5-5.1) 11/11/17 07:33 Chloride 104 mmol/L (98-107) 11/11/17 07:33 Carbon Dioxide 21 mmol/L (22-30) L 11/11/17 07:33 Anion Gap 13 mmol/L 11/11/17 07:33 BUN 15 mg/dL (7-17) 11/11/17 07:33 Creatinine 1.06 mg/dL (0.52-1.04) H 11/11/17 07:33 Est GFR (CKD-EPI)AfAm 63 (>60 ml/min/1.73 sqM) 11/11/17 07:33 Est GFR (CKD-EPI)NonAf 55 (>60 ml/min/1.73 sqM) 11/11/17 07:33 Glucose 77 mg/dL (74-99) 11/11/17 07:33 POC Glucose (mg/dL) 93 mg/dL (75-99) 11/07/17 13:15 POC Glu Center Medical Director ID Mirian Aleman 11/07/17 13:15 Plasma Lactic Acid Joshua 1.1 mmol/L (0.7-2.0) 11/07/17 16:53 Calcium 9.1 mg/dL (8.4-10.2) 11/11/17 07:33 Total Bilirubin 0.6 mg/dL (0.2-1.3) 11/11/17 07:33 AST 28 U/L (14-36) 11/11/17 07:33 ALT 18 U/L (9-52) 11/11/17 07:33 Alkaline Phosphatase 103 U/L (38-126) 11/11/17 07:33 Total Creatine Kinase <20 U/L (30-135) L 11/07/17 13:44 CK-MB (CK-2) 0.4 ng/mL (0.0-2.4) 11/07/17 13:44 CK-MB (CK-2) Rel Index 11/07/17 13:44 Troponin I <0.012 ng/mL (0.000-0.034) 11/07/17 13:44 C-Reactive Protein 36.6 mg/L (<10.0) H 11/10/17 08:06 Total Protein 6.1 g/dL (6.3-8.2) L 11/11/17 07:33 Albumin 3.6 g/dL (3.5-5.0) 11/11/17 07:33 Urine Color Yellow 11/07/17 14:53 Urine Appearance Cloudy (Clear) H 11/07/17 14:53 Urine pH 6.5 (5.0-8.0) 11/07/17 14:53 Ur Specific [place] 1.017 (1.001-1.035) 11/07/17 14:53 Urine Protein Trace (Negative) H 11/07/17 14:53 Urine Glucose (UA) Negative (Negative) 11/07/17 14:53 Urine Ketones Trace (Negative) H 11/07/17 14:53 Urine Blood Negative (Negative) 11/07/17 14:53 Urine Nitrite Negative (Negative) 11/07/17 14:53 Urine Bilirubin Negative (Negative) 11/07/17 14:53 Urine Urobilinogen <2.0 mg/dL (<2.0) 11/07/17 14:53 Ur Leukocyte Esterase Large (Negative) H 11/07/17 14:53 Urine RBC 3 /hpf (0-5) 11/07/17 14:53 Urine WBC 119 /hpf (0-5) H 11/07/17 14:53 Ur Squamous Epith Cells 2 /hpf (0-4) 11/07/17 14:53 Hyaline Casts 12 /lpf (0-2) H 11/07/17 14:53 Urine Mucus Rare /hpf (None) H 11/07/17 14:53 Influenza Type A RNA Not Detected (Not Detectd) 11/11/17 12:48 Influenza Type B (PCR) Not Detected (Not Detectd) 11/11/17 12:48 Microbiology 11/07/17 16:53 Blood Blood Culture - Preliminary No Growth after 96 hours 11/10/17 00:30 Blood Blood Culture - Preliminary No Growth after 24 hours 11/07/17 14:53 Urine,Voided Urine Culture - Final Strep agalactiae - (group b) Assessment and Plan (1) Fever Narrative/Plan: 67 year old female who presents to Hospital feeling quite poorly neck pain and sinus pain at admission. She was evaluated by otolaryngology and a spot evidence of a right nasal mass which he be further evaluated as an outpatient. She is been on Xarelto and the sinus area was crusted and bloody and with this issue Xarelto was held briefly and no more bleeding is noted. Her pain is markedly improved since coming to hospital. Patient however has developed recurrent fever and developed some right flank pain associated with some urinary frequency and worsening malaise. Has been followed evidence of urinary tract infection not responding well to current antibiotic therapy of Rocephin. The patient's blood cultures are negative and urine culture is finalized on his Streptococcus agalactiae which is group B strep. Patient overs developed fever and there is concerns to the sinus lesion as a potential ongoing source of fever given its significant obstructive process. We'll alter antibiotic therapy to Invanz and monitor her response. She has had an increased leukocytosis without evidence of steroid use. The patient does have known significant carotid disease that has been redemonstrated by her MRI with MRA. 11/11/2017 reveals the patient still hasn't had some fever overnight. It is definitely more comfortable. Leukocytosis is trending to improvement. Her other new acute changes at this time. We'll continue the current antibiotic therapy of Invanz for a more resistant urinary tract infection while cultures are process probably group B strep was found. Does have evidence of the extensive sinus disease which may also be an etiology of some ongoing fever, goal for ertapenem to also treat this site. Current Visit: Yes Status: Acute Code(s): R50.9 - FEVER, UNSPECIFIED SNOMED Code(s): 383385242 (2) Leukocytosis Current Visit: Yes Status: Acute Code(s): D72.829 - ELEVATED WHITE BLOOD CELL COUNT, UNSPECIFIED SNOMED Code(s): 059956478 (3) COPD (chronic obstructive pulmonary disease) Current Visit: Yes Status: Acute Code(s): J44.9 - CHRONIC OBSTRUCTIVE PULMONARY DISEASE, UNSPECIFIED SNOMED Code(s): 29148470 (4) Nasal mass Current Visit: Yes Status: Acute Code(s): R22.0 - LOCALIZED SWELLING, MASS AND LUMP, HEAD SNOMED Code(s): 679701001 (5) Urinary tract infection Current Visit: Yes Status: Acute Code(s): N39.0 - URINARY TRACT INFECTION, SITE NOT SPECIFIED SNOMED Code(s): 94781752
[2017-11-12 04:51] LABS: Angiotensin-1 Converting Enz. 30 U/L (8-52)
[2017-11-12] MEDS: LEVOTHYROXINE 100 MCG TAB PO SCH (06:35)
[2017-11-12] MEDS: SODIUM CHLORIDE 0.9% 1,000 ML IV SCH ×2 (06:36→09:31)
[2017-11-12] MEDS: SYMBICORT 80-4.5 MCG INHALER INHALATION SCH ×2 (07:35→20:27)
[2017-11-12] MEDS: IPRATROPIUM 0.5 MG/2.5 ML NEBU INHALATION SCH ×2 (07:35→11:19)
[2017-11-12 08:05] LABS: Anisocytosis Slight; Basophils % (A) 0 %; Eosinophils # (A) 0.4 k/uL (0-0.7); Eosinophils % (A) 5 %; HCT 41.9 % (34.0-46.0); HGB 12.4 gm/dL (11.4-16.0); Hypochromasia Moderate; Lymphocytes # (A) 1.5 k/uL (1.0-4.8); Lymphocytes % (A) 16 %; MCH 24.8 pg (25.0-35.0); MCHC 29.5 g/dL (31.0-37.0); MCV 84.1 fL (80.0-100.0); Mean Platelet Volume 7.5; Monocytes # (A) 0.7 k/uL (0-1.0); Monocytes % (A) 7 %; Neutrophils # (A) 6.3 k/uL (1.3-7.7); Neutrophils % (A) 70 %; Platelet Count 255 k/uL (150-450); RBC 4.99 m/uL (3.80-5.40); RDW 16.7 % (11.5-15.5); WBC 9.1 k/uL (3.8-10.6)
[2017-11-12] MEDS: CLOPIDOGREL 75 MG TAB PO SCH (08:09)
[2017-11-12] MEDS: METOPROLOL TARTRATE 25 MG TAB PO SCH ×2 (08:09→20:10)
[2017-11-12] MEDS: DOCUSATE 100 MG CAP PO SCH ×2 (08:09→20:12)
[2017-11-12] MEDS: CALCIUM POLYCARBOPHIL 625 MG TAB PO SCH (08:09)
[2017-11-12] MEDS: LURASIDONE 40 MG TAB PO SCH (08:10)
[2017-11-12] MEDS: PARoxetine 10 MG TAB PO SCH ×2 (08:11→20:09)
[2017-11-12] MEDS: ATORVASTATIN 20 MG TAB PO SCH (08:11)
[2017-11-12] MEDS: MAGNESIUM OXIDE 400 MG TAB PO SCH (08:11)
[2017-11-12] MEDS: FERROUS SULFATE 325 MG TAB PO SCH (08:12)
[2017-11-12] MEDS: PANTOPRAZOLE 40 MG TABLET PO SCH (08:12)
[2017-11-12] MEDS: GABAPENTIN 100 MG CAP PO SCH ×3 (08:12→20:24)
[2017-11-12 08:21] LABS: Albumin 3.1 g/dL (3.5-5.0); Calcium 8.8 mg/dL (8.4-10.2); Potassium 4.6 mmol/L (3.5-5.1); Total Bilirubin 0.3 mg/dL (0.2-1.3); Total Protein 5.5 g/dL (6.3-8.2)
[2017-11-12] MEDS: traMADol 50 MG TAB PO PRN (08:28)
[2017-11-12 08:41] LABS: Creatine Kinase 24 U/L (30-135)
[2017-11-12 08:54] LABS: Troponin I <0.012 ng/mL (0.000-0.034)
[2017-11-12 08:56] LABS: Creatine Kinase MB 0.8 ng/mL (0.0-2.4)
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
[2017-11-12] MEDS ORDERED: SODIUM CHLORIDE 0.9% 1,000 ML IV ONE (12:03)
[2017-11-12] MEDS ORDERED: IPRATROPIUM-ALBUTEROL 3 ML NEB INHALATION PRN (12:24)
[2017-11-12] MEDS: MULTIVITAMINS, THERA 1 EACH TAB PO SCH (12:25)
[2017-11-12] MEDS: INSULIN ASPART 100 UNIT/ML 1 ML 10 ML VIAL SQ SCH ×3 (12:39→21:13)
[2017-11-12] MEDS: methylPREDNISolone SOD SUCCI 40 MG/ML 1 ML VIAL IV SCH ×2 (12:57→20:07)
--- NOTE | 2017-11-12 14:16 | XR ---
EXAMINATION TYPE: XR chest 2V DATE OF EXAM: 11/12/2017 COMPARISON: Prior chest x-ray 11/07/2017 HISTORY: Shortness of breath TECHNIQUE: Frontal and lateral views of the chest are obtained. FINDINGS: There is no focal air space opacity, pleural effusion, or pneumothorax seen. The cardiac silhouette size is stable. Interstitium is increased. Atherosclerotic vascular calcifications are no jose carlos. The osseous structures are intact. Patchy basilar density present on the left. IMPRESSION: Interstitial lung disease again noted. There may be left lower lobe atelectasis, correla te to exclude pneumonia. Follow-up as indicated.
[2017-11-12 15:12] LABS: C-ANCA <1:20 Titer (<1:20); P-ANCA <1:20 Titer (<1:20)
--- NOTE | 2017-11-12 15:31 | P.PN ---
Subjective Progress Note Date: 11/12/17 Principal diagnosis: 4 mm right apical lung nodule Kathy is a 67-year-old white female patient of Dr. Lolita Fraga, who presented to the emergency department on 11/07/2017 at 1248 with complaints of acute right-sided neck pain, in addition to excruciating right maxillary sinus and right orbital area pain, mild dyspnea, recurrent nosebleeds, weakness. Patient states she has had intermittent nosebleeds for most of her life. But this past Wednesday on 11/07/2017 she woke up out of her sleep at 3:00 in the morning with acute onset right neck pain, right facial pain and right orbital pain, shaking, weakness. She denies any fever, but did have chills. 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 This CT also showed intraseptal lobular thickening of the lung apices, that could possibly related to underlying interstitial edema or interstitial lung disease. There was a 4 mm right apical pulmonary nodule noted on the CT. 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 Patient is currently on Xarelto for her underlying history of A. fib. She was advised to have a biopsy of the nasopharyngeal mass on an outpatient basis. Patient still has the nosebleed, after she blows her nose. Denies any acute dyspnea at this time. Patient is a former smoker, she quit smoking 6 or 7 years ago, but prior to that smoked 2 packs a day for 47 years, since the age of 14. She does have a diagnosis of COPD, not on any home oxygen, her maintenance inhalers include Breo -Ellipta, Spiriva. She states she used to see a graduate rn a while ago, but does not remember what her lung function was. She is fairly active on a regular basis, she states she goes to the [facility] 3 times a week, she states she swims and participates in regular exercise activities without significant shortness of breath. Patient has been afebrile, hemodynamically stable. Urinalysis revealed pyuria, urine culture was positive for group B strep agalactiae. Patient did admit to having urinary urgency, but denies any burning. She was started on IV Rocephin. We're asked to see the patient in regards to the 4 mm nodule in the right apex of the lung, which was an incidental finding on the CT of the neck. On 11/10/2017 patient seen again in follow-up. She is resting comfortably in bed, she states she has not had any episodes of epistaxis today. Her right facial and right neck pain are improving, neurology is following, and making adjustments to her medications for her trigeminal neuralgia. Lung sounds are positive for a few rhonchi, good air entry bilaterally, no wheezing. She remains on 2 L per nasal cannula, with a pulse ox at around 90-92%. She did have a fever of 101.1F last night at 2300. Low-grade fevers this morning. She remains on Rocephin for her acute urinary tract infection. Urine culture was positive for strep group B, although the colony count was low. Patient remains weak, she was advised to increase her activity today, sit up and ambulate with assistance. She states she is feeling better today compared to when she came in. WBC is 10.8, hemoglobin is 12.4, electrolytes and renal profile are within normal limits. From pulmonary standpoint patient is stable, we will sign off and follow the patient on an outpatient basis for the right millimeter right apical lung nodule. On 11/12/2017 we were asked to see the patient again in regards to concern to hypotension, coughing, coarse lung sounds, and potential fluid overload. Patient had an episode of hypotension with a BP of 87/42 this morning, although she remained asymptomatic with that. She does state that this morning the patient was given a breathing treatment of ipratropium after which she developed severe coughing spell and bilateral chest wall pain from coughing. Patient denies any fever or chills, does have a congested nonproductive cough. Chest x-ray was obtained and it shows interstitial lung disease, with a possible left lower lobe atelectasis. Doubt pneumonia. Patient has been on Invanz for the concern of urinary tract infection. Urine culture is positive for group B strep agalactiae. Blood cultures have been negative. Today's blood work shows a BBC of 9.1, hemoglobin of 12.4, electrolytes are within normal limits, renal profile is normal. Troponin was negative 1, influenza screen was negative. EKG was taken and showed atrial fibrillation with a heart rate of 94 BPM. Patient is on Xarelto for anticoagulation of her chronic A. fib. During my evaluation patient is resting in bed, denies any acute distress. She states her bilateral chest wall tenderness is exacerbated by episodes of coughing. Lung sounds are diminished with scattered wheezes and a few bibasilar crackles. Patient has been mostly on bed rest, although did get up and ambulate yesterday. She is currently afebrile, with the vitals as follows, temperature of 98.4F, heart rate is 86 BPM, respiratory rate is 16, blood pressure is 137/59, and pulse ox of 95% on 3 L per nasal cannula. Patient is on Symbicort, ipratropium nebulized treatments in place of her Spiriva. We will switch the ipratropium to DuoNeb nebulized treatments, continue with Symbicort, we will add IV Solu-Medrol 40 mg every 8 hours. Patient is awake alert, skin is warm and dry, no evidence of hypoperfusion. She denies any acute distress. We will add a proBNP. Increase patient's activity, add incentive spirometry. Continue with current antibiotic coverage. Chest x-ray was reviewed by Dr. Ramirez, and compared to the chest x-ray from , the interstitial prominence is stable in appearance. There is left lower lobe density, likely atelectasis, doubt pneumonia. Objective - Vital Signs Vital signs: Vital Signs Temp 98.4 F 11/12/17 10:40 Pulse 86 11/12/17 12:22 Resp 16 11/12/17 10:40 BP 137/59 11/12/17 12:22 Pulse Ox 91 L 11/12/17 10:40 Intake & Output 11/11/17 11/12/17 11/12/17 18:59 06:59 18:59 Other: Voiding Method Toilet # Voids 2 2 - Exam GENERAL EXAM: Alert, pleasant, 67-year-old white female comfortable in no apparent distress. HEAD: Normocephalic/atraumatic. EYES: Normal reaction of pupils, equal size. Conjunctiva pink, sclera white. NOSE: Clear with pink turbinates. THROAT: No erythema or exudates. NECK: No masses, no JVD, no thyroid enlargement, no adenopathy. CHEST: No chest wall deformity. Symmetrical expansion. LUNGS: Equal air entry with no crackles, wheeze, rhonchi or dullness. CVS: Irregular rate and rhythm, normal S1 and S2, no gallops, no murmurs, no rubs ABDOMEN: Soft, nontender. No hepatosplenomegaly, normal bowel sounds, no guarding or rigidity. EXTREMITIES: No clubbing, no edema, no cyanosis, 2+ pulses and upper and lower extremities. MUSCULOSKELETAL: Muscle strength and tone normal. SPINE: No scoliosis or deformity SKIN: No rashes CENTRAL NERVOUS SYSTEM: Alert and oriented -3. No focal deficits, tone is normal in all 4 extremities. PSYCHIATRIC: Alert and oriented -3. Appropriate affect. Intact judgment and insight. - Labs CBC & Chem 7: 11/12/17 07:34 11/12/17 07:34 Labs: Abnormal Lab Results - Last 24 Hours (Table) 11/12/17 11/12/17 11/12/17 Range/Units 07:34 07:34 07:34 MCH 24.8 L (25.0-35.0) pg MCHC 29.5 L (31.0-37.0) g/dL RDW 16.7 H (11.5-15.5) % Total Creatine Kinase 24 L (30-135) U/L Total Protein 5.5 L (6.3-8.2) g/dL Albumin 3.1 L (3.5-5.0) g/dL Microbiology - Last 24 Hours (Table) 11/10/17 00:30 Blood Culture - Preliminary Blood No Growth after 48 hours 11/07/17 16:53 Blood Culture - Preliminary Blood No Growth after 96 hours Assessment and Plan Plan: Assessment: #1. Acute COPD exacerbation. Chest x-ray from 11/12/2017 shows interstitial lung disease, left lower lobe density, likely related to atelectasis, doubt pneumonia. #2. 4 mm right apical lung nodule, an incidental finding on the CT neck from completed for the purpose of investigation of acute right neck pain and right facial pain. Patient carries 2 pack a day for 47 years smoking history, this will be followed up on an outpatient basis with a CT chest with contrast. #3. Acute urinary tract infection. Urine culture is positive for group B strep agalactiae, initiated on IV Rocephin #4. Acute right facial, orbital pain and right neck pain, CT of the neck revealed a sinonasal mass, being followed by day ENT service who has performed a flexible diagnostic nasal endoscopy which revealed an inflammatory mass. Biopsy is recommended outpatient basis #5. Recurrent intermittent epistaxis probably secondary to the above #6. COPD, currently stable #7. Chronic A. fib, on anticoagulation with Xarelto #8. Acute kidney injury, possibly related to ATN, on admission creatinine was 1.45, currently is down to 0.94. Recovered #9. Mild hyperkalemia, present on admission, 5.2, down to 4.9, patient was given a dose of Kayexalate #10. Carotid artery stenosis, MRA of the head from 11/09/2017 revealed completely occluded right vertebral and internal carotid arteries. #11. History of vascular dementia #12. History of coronary artery disease with cardiac stents #13. History of myocardial infarction #14. History of renal cancer status post right nephrectomy Plan: Patient was noted to be wheezy, with a loose congested cough. Chest x-ray from 11/12/2017 has been reviewed, and compared to previous chest x-ray from 2017, the interstitial prominence appears to be stable in appearance, there is a left lower lobe density, most likely related to atelectasis, doubt pneumonic process at this time. Continue Invanz, we will add Solu-Medrol 40 mg every 8 hours, we will switch the ipratropium to DuoNeb nebulized treatments. Continue Symbicort. We will add a proBNP to rule out congestive heart failure. Encourage incentive spirometry, increase activity as tolerated. Patient did have a isolated episode of hypotension, recovered. She is afebrile, lab work shows no evidence of leukocytosis, her electrolytes and renal profile are all within normal limits. We will continue to follow with you. I performed a history & physical examination of the patient and discussed their management with my nurse practitioner, Mariam Calderon. I reviewed the nurse practitioner's note and agree with the documented findings and plan of care. Lung sounds positive for some scattered wheezes and bibasilar crackles. The findings and the impression was discussed with the patient. I attest to the documentation by the nurse practitioner. Time with Patient: Less than 30
[2017-11-12] MEDS: IPRATROPIUM-ALBUTEROL 3 ML NEB INHALATION SCH ×2 (15:44→20:27)
[2017-11-12] MEDS ORDERED: methylPREDNISolone SOD SUCCI 40 MG/ML 1 ML VIAL IV SCH (16:00)
[2017-11-12 17:20] LABS: Glucose,Whole Blood 138 mg/dL (75-99)
[2017-11-12] MEDS: RIVAROXABAN 15 MG TAB PO SCH (17:57)
[2017-11-12] MEDS: ERTAPENEM 1 GM in SODIUM CHLORIDE 0.9% 50 ML IVPB SCH (20:04)
[2017-11-12] MEDS: MONTELUKAST 10 MG TAB PO SCH (20:09)
[2017-11-12] MEDS: MELATONIN 3 MG TABLET PO SCH (20:11)
[2017-11-12 20:44] LABS: Glucose,Whole Blood 138 mg/dL (75-99)
[2017-11-12 21:34] LABS: Hemoglobin A1C 5.9 % (4.0-6.0)
--- NOTE | 2017-11-12 23:39 | P.PN ---
Subjective Progress Note Date: 11/12/17 67-year-old female with history of underlying COPD that is treated with Brieo-Eliipta and Spiriva but not on oxygen at home presents to Hospital feeling poorly for several days. She relates that she awoke with severe pain to the right side of her neck, right facial pain associated with fever and shaking chills and progressive weakness. She presented emergency center with these severe pains and underwent imaging studies. There was no evidence of any intracranial lesions but was without evidence of a significant obliteration of the right fossa of Rosenmuller. She did undergo flexible nasal endoscopy showed evidence of the right-sided nasal mass that had extensive crusting possibly due to bleeding from her Xarelto therapy. She was having extensive amounts of epistaxis that have now improved and she is blowing her nose much less as directed. Is related she will have outpatient evaluation and biopsy. The patient's neck pain and facial discomforts have improved since coming to Hospital being treated with medications and Rocephin. She over does develop recurrent fever, she's having some worsening shortness of breath, and is developed right-sided flank pain and urinary urgency and pelvic discomfort. With concerns to urinary tract infection, the significant abnormality to her sinuses the infectious diseases consultation was requested. The patient has been seen by pulmonary critical care for her abnormality which includes a 4 mm nodule in the right apex. 11/11/2017 revealed the patient to be feeling somewhat better. She still had some fever within the last 24 hours. This evening she has no chills or rigors. She's been able to eat without great difficulties. Denies any new discomforts to her face or sinus, no active epistaxis. 11/12/2017 the patient became more short of breath. She's been seen by the entry level software developer. No further fever. Steroids have been added to improve her pulmonary status. No further epistaxis but no still feels very uncomfortable. She is noticing that her cough is changed in its now slightly productive. No hemoptysis. Objective - Vital Signs Vital signs: Vital Signs Temp 97.9 F 11/12/17 22:07 Pulse 111 H 11/12/17 22:07 Resp 19 11/12/17 22:07 BP 114/78 11/12/17 22:07 Pulse Ox 91 L 11/12/17 22:07 Intake & Output 11/12/17 11/12/17 11/13/17 06:59 18:59 06:59 Intake Total 200 300 Balance 200 300 Intake: Oral 200 300 Other: Voiding Method Toilet Toilet Bedside Commode # Voids 2 2 1 # Bowel Movements 2 - Exam 67-year-old woman who has cachexia, seems to be mildly short of breath is having no active bleeding HEENT: Anicteric conjunctiva are pink and moist nasal mucosa grossly intact without significant lesions, there is no thrush. Nasal cavity without active bleeding Neck: The neck is supple without significant lymphadenopathy or thyromegaly. Lungs: Symmetrical air entry is noted, expiratory wheezes with the lung chamberlain, no paola bronchial sounds, no dullness or egophony Heart: Irregular with a soft S4. There is no significant murmur click or rub, PMI was nondisplaced. Abdomen: Positive bowel sounds soft and nontender without palpable masses or organomegaly. There was no guarding or rebound. Extremities: The upper extremities have excellent pulses they are symmetric, no significant petechiae or telangiectasia. No splinter hemorrhages were noted. The lower extremities are free from significant edema. The peripheral pulses were 2+ and symmetric. Neuro: Awake alert oriented to person place and time. There are no acute new gross focal sensory motor deficits. - Labs CBC & Chem 7: 11/12/17 07:34 11/12/17 07:34 Labs: Abnormal Lab Results - Last 24 Hours (Table) 11/12/17 11/12/17 11/12/17 Range/Units 07:34 07:34 07:34 MCH 24.8 L (25.0-35.0) pg MCHC 29.5 L (31.0-37.0) g/dL RDW 16.7 H (11.5-15.5) % POC Glucose (mg/dL) (75-99) mg/dL Total Creatine Kinase 24 L (30-135) U/L Total Protein 5.5 L (6.3-8.2) g/dL Albumin 3.1 L (3.5-5.0) g/dL 11/12/17 11/12/17 Range/Units 17:14 20:40 MCH (25.0-35.0) pg MCHC (31.0-37.0) g/dL RDW (11.5-15.5) % POC Glucose (mg/dL) 138 H 138 H (75-99) mg/dL Total Creatine Kinase (30-135) U/L Total Protein (6.3-8.2) g/dL Albumin (3.5-5.0) g/dL Microbiology - Last 24 Hours (Table) 11/07/17 16:53 Blood Culture - Preliminary Blood No Growth after 120 hours 11/10/17 00:30 Blood Culture - Preliminary Blood No Growth after 48 hours Laboratory Results WBC 9.1 k/uL (3.8-10.6) 11/12/17 07:34 RBC 4.99 m/uL (3.80-5.40) 11/12/17 07:34 Hgb 12.4 gm/dL (11.4-16.0) 11/12/17 07:34 Hct 41.9 % (34.0-46.0) 11/12/17 07:34 MCV 84.1 fL (80.0-100.0) 11/12/17 07:34 MCH 24.8 pg (25.0-35.0) L 11/12/17 07:34 MCHC 29.5 g/dL (31.0-37.0) L 11/12/17 07:34 RDW 16.7 % (11.5-15.5) H 11/12/17 07:34 Plt Count 255 k/uL (150-450) 11/12/17 07:34 Neutrophils % 70 % 11/12/17 07:34 Lymphocytes % 16 % 11/12/17 07:34 Monocytes % 7 % 11/12/17 07:34 Eosinophils % 5 % 11/12/17 07:34 Basophils % 0 % 11/12/17 07:34 Neutrophils # 6.3 k/uL (1.3-7.7) 11/12/17 07:34 Lymphocytes # 1.5 k/uL (1.0-4.8) 11/12/17 07:34 Monocytes # 0.7 k/uL (0-1.0) 11/12/17 07:34 Eosinophils # 0.4 k/uL (0-0.7) 11/12/17 07:34 Basophils # 0.0 k/uL (0-0.2) 11/12/17 07:34 Hypochromasia Moderate 11/12/17 07:34 Anisocytosis Slight 11/12/17 07:34 ESR 8 mm/hr (0-20) 11/10/17 08:06 PT 11.2 sec (9.0-12.0) 11/07/17 13:44 INR 1.2 (<1.2) H 11/07/17 13:44 APTT 24.6 sec (22.0-30.0) 11/07/17 13:44 Sodium 138 mmol/L (137-145) 11/12/17 07:34 Potassium 4.6 mmol/L (3.5-5.1) 11/12/17 07:34 Chloride 105 mmol/L (98-107) 11/12/17 07:34 Carbon Dioxide 23 mmol/L (22-30) 11/12/17 07:34 Anion Gap 10 mmol/L 11/12/17 07:34 BUN 16 mg/dL (7-17) 11/12/17 07:34 Creatinine 0.88 mg/dL (0.52-1.04) 11/12/17 07:34 Est GFR (CKD-EPI)AfAm 80 (>60 ml/min/1.73 sqM) 11/12/17 07:34 Est GFR (CKD-EPI)NonAf 69 (>60 ml/min/1.73 sqM) 11/12/17 07:34 Glucose 82 mg/dL (74-99) 11/12/17 07:34 POC Glucose (mg/dL) 138 mg/dL (75-99) H 11/12/17 20:40 POC Glu Felt Puller JUDY Aysha Pires 11/12/17 20:40 Plasma Lactic Acid Joshua 1.1 mmol/L (0.7-2.0) 11/07/17 16:53 Calcium 8.8 mg/dL (8.4-10.2) 11/12/17 07:34 Total Bilirubin 0.3 mg/dL (0.2-1.3) 11/12/17 07:34 AST 23 U/L (14-36) 11/12/17 07:34 ALT 30 U/L (9-52) 11/12/17 07:34 Alkaline Phosphatase 85 U/L (38-126) 11/12/17 07:34 Total Creatine Kinase 24 U/L (30-135) L 11/12/17 07:34 CK-MB (CK-2) 0.8 ng/mL (0.0-2.4) 11/12/17 07:34 CK-MB (CK-2) Rel Index 3.3 11/12/17 07:34 Troponin I <0.012 ng/mL (0.000-0.034) 11/12/17 07:34 C-Reactive Protein 36.6 mg/L (<10.0) H 11/10/17 08:06 NT-Pro-B Natriuret Pep 4780 pg/mL 11/12/17 15:46 Total Protein 5.5 g/dL (6.3-8.2) L 11/12/17 07:34 Albumin 3.1 g/dL (3.5-5.0) L 11/12/17 07:34 Angiotensin Convert Enz 30 U/L (8-52) 11/10/17 08:06 Urine Color Yellow 11/07/17 14:53 Urine Appearance Cloudy (Clear) H 11/07/17 14:53 Urine pH 6.5 (5.0-8.0) 11/07/17 14:53 Ur Specific [place] 1.017 (1.001-1.035) 11/07/17 14:53 Urine Protein Trace (Negative) H 11/07/17 14:53 Urine Glucose (UA) Negative (Negative) 11/07/17 14:53 Urine Ketones Trace (Negative) H 11/07/17 14:53 Urine Blood Negative (Negative) 11/07/17 14:53 Urine Nitrite Negative (Negative) 11/07/17 14:53 Urine Bilirubin Negative (Negative) 11/07/17 14:53 Urine Urobilinogen <2.0 mg/dL (<2.0) 11/07/17 14:53 Ur Leukocyte Esterase Large (Negative) H 11/07/17 14:53 Urine RBC 3 /hpf (0-5) 11/07/17 14:53 Urine WBC 119 /hpf (0-5) H 11/07/17 14:53 Ur Squamous Epith Cells 2 /hpf (0-4) 11/07/17 14:53 Hyaline Casts 12 /lpf (0-2) H 11/07/17 14:53 Urine Mucus Rare /hpf (None) H 11/07/17 14:53 c-ANCA <1:20 Titer (<1:20) 11/10/17 08:06 p-ANCA <1:20 Titer (<1:20) 11/10/17 08:06 Influenza Type A RNA Not Detected (Not Detectd) 11/11/17 12:48 Influenza Type B (PCR) Not Detected (Not Detectd) 11/11/17 12:48 Microbiology 11/07/17 16:53 Blood Blood Culture - Preliminary No Growth after 120 hours 11/10/17 00:30 Blood Blood Culture - Preliminary No Growth after 48 hours 11/07/17 14:53 Urine,Voided Urine Culture - Final Strep agalactiae - (group b) Assessment and Plan (1) Fever Narrative/Plan: 67 year old female who presents to Hospital feeling quite poorly neck pain and sinus pain at admission. She was evaluated by otolaryngology and a spot evidence of a right nasal mass which he be further evaluated as an outpatient. She is been on Xarelto and the sinus area was crusted and bloody and with this issue Xarelto was held briefly and no more bleeding is noted. Her pain is markedly improved since coming to hospital. Patient however has developed recurrent fever and developed some right flank pain associated with some urinary frequency and worsening malaise. Has been followed evidence of urinary tract infection not responding well to current antibiotic therapy of Rocephin. The patient's blood cultures are negative and urine culture is finalized on his Streptococcus agalactiae which is group B strep. Patient overs developed fever and there is concerns to the sinus lesion as a potential ongoing source of fever given its significant obstructive process. We'll alter antibiotic therapy to Invanz and monitor her response. She has had an increased leukocytosis without evidence of steroid use. The patient does have known significant carotid disease that has been redemonstrated by her MRI with MRA. 11/11/2017 reveals the patient still hasn't had some fever overnight. It is definitely more comfortable. Leukocytosis is trending to improvement. Her other new acute changes at this time. We'll continue the current antibiotic therapy of Invanz for a more resistant urinary tract infection while cultures are process probably group B strep was found. Does have evidence of the extensive sinus disease which may also be an etiology of some ongoing fever, goal for ertapenem to also treat this site. 11/12/2017 patient was a bit more short of breath and is now receiving some steroids in addition to breathing treatments and her antibiotic therapy which of Invanz to treat the group B strep as well as the significant lesion within the sinus. We'll also provide treatment of pulmonary infection at this time. Continue ongoing supportive care. Discharge plan is not clear at this time. Current Visit: Yes Status: Acute Code(s): R50.9 - FEVER, UNSPECIFIED SNOMED Code(s): 032186189 (2) Leukocytosis Current Visit: Yes Status: Acute Code(s): D72.829 - ELEVATED WHITE BLOOD CELL COUNT, UNSPECIFIED SNOMED Code(s): 466179721 (3) COPD (chronic obstructive pulmonary disease) Current Visit: Yes Status: Acute Code(s): J44.9 - CHRONIC OBSTRUCTIVE PULMONARY DISEASE, UNSPECIFIED SNOMED Code(s): 47030739 (4) Nasal mass Current Visit: Yes Status: Acute Code(s): R22.0 - LOCALIZED SWELLING, MASS AND LUMP, HEAD SNOMED Code(s): 550235622 (5) Urinary tract infection Current Visit: Yes Status: Acute Code(s): N39.0 - URINARY TRACT INFECTION, SITE NOT SPECIFIED SNOMED Code(s): 26097830
[2017-11-13] MEDS: methylPREDNISolone SOD SUCCI 40 MG/ML 1 ML VIAL IV SCH ×3 (04:16→20:46)
[2017-11-13] MEDS: LEVOTHYROXINE 100 MCG TAB PO SCH (06:31)
[2017-11-13 07:17] LABS: Glucose,Whole Blood 110 mg/dL (75-99)
[2017-11-13] MEDS: GABAPENTIN 100 MG CAP PO SCH ×3 (07:40→20:46)
[2017-11-13] MEDS: INSULIN ASPART 100 UNIT/ML 1 ML 10 ML VIAL SQ SCH ×4 (07:40→22:24)
[2017-11-13] MEDS: IPRATROPIUM-ALBUTEROL 3 ML NEB INHALATION SCH ×4 (08:07→20:47)
[2017-11-13] MEDS: SYMBICORT 80-4.5 MCG INHALER INHALATION SCH ×2 (08:07→20:47)
[2017-11-13] MEDS: FERROUS SULFATE 325 MG TAB PO SCH (08:28)
[2017-11-13] MEDS: MAGNESIUM OXIDE 400 MG TAB PO SCH (08:28)
[2017-11-13] MEDS: METOPROLOL TARTRATE 25 MG TAB PO SCH ×2 (08:28→20:46)
[2017-11-13] MEDS: ATORVASTATIN 20 MG TAB PO SCH (08:28)
[2017-11-13] MEDS: FUROSEMIDE 40 MG TAB PO SCH (08:28)
[2017-11-13] MEDS: CLOPIDOGREL 75 MG TAB PO SCH (08:28)
[2017-11-13] MEDS: PANTOPRAZOLE 40 MG TABLET PO SCH (08:28)
[2017-11-13] MEDS: CALCIUM POLYCARBOPHIL 625 MG TAB PO SCH (08:28)
[2017-11-13] MEDS: PARoxetine 10 MG TAB PO SCH ×2 (08:28→20:47)
[2017-11-13] MEDS: LURASIDONE 40 MG TAB PO SCH (08:28)
[2017-11-13] MEDS: DOCUSATE 100 MG CAP PO SCH ×2 (08:28→20:46)
[2017-11-13] MEDS: ACETAMINOPHEN TAB 325 MG TAB PO PRN (08:35)
[2017-11-13 09:33] LABS: Anisocytosis Slight; Basophils % (A) 0 %; Eosinophils % (A) 0 %; HCT 42.2 % (34.0-46.0); HGB 12.9 gm/dL (11.4-16.0); Hypochromasia Slight; Lymphocytes # (A) 1.2 k/uL (1.0-4.8); Lymphocytes % (A) 11 %; MCH 25.1 pg (25.0-35.0); MCHC 30.6 g/dL (31.0-37.0); MCV 82.1 fL (80.0-100.0); Mean Platelet Volume 7.8; Monocytes # (A) 0.2 k/uL (0-1.0); Monocytes % (A) 2 %; Neutrophils % (A) 87 %; Platelet Count 299 k/uL (150-450); RBC 5.14 m/uL (3.80-5.40); RDW 16.5 % (11.5-15.5); WBC 11.4 k/uL (3.8-10.6)
[2017-11-13 09:35] LABS: Albumin 3.6 g/dL (3.5-5.0); Calcium 9.6 mg/dL (8.4-10.2); Potassium 4.6 mmol/L (3.5-5.1); Total Bilirubin 0.3 mg/dL (0.2-1.3); Total Protein 6.5 g/dL (6.3-8.2)
[2017-11-13] MEDS: MULTIVITAMINS, THERA 1 EACH TAB PO SCH (11:25)
--- NOTE | 2017-11-13 12:16 | P.PN ---
Subjective Progress Note Date: 11/13/17 Principal diagnosis: 4 mm right apical lung nodule Kathy is a 67-year-old white female patient of Dr. Lolita Fraga, who presented to the emergency department on 11/07/2017 at 1248 with complaints of acute right-sided neck pain, in addition to excruciating right maxillary sinus and right orbital area pain, mild dyspnea, recurrent nosebleeds, weakness. Patient states she has had intermittent nosebleeds for most of her life. But this past Wednesday on 11/07/2017 she woke up out of her sleep at 3:00 in the morning with acute onset right neck pain, right facial pain and right orbital pain, shaking, weakness. She denies any fever, but did have chills. 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 This CT also showed intraseptal lobular thickening of the lung apices, that could possibly related to underlying interstitial edema or interstitial lung disease. There was a 4 mm right apical pulmonary nodule noted on the CT. 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 Patient is currently on Xarelto for her underlying history of A. fib. She was advised to have a biopsy of the nasopharyngeal mass on an outpatient basis. Patient still has the nosebleed, after she blows her nose. Denies any acute dyspnea at this time. Patient is a former smoker, she quit smoking 6 or 7 years ago, but prior to that smoked 2 packs a day for 47 years, since the age of 14. She does have a diagnosis of COPD, not on any home oxygen, her maintenance inhalers include Breo -Ellipta, Spiriva. She states she used to see a hearing aid dispenser a while ago, but does not remember what her lung function was. She is fairly active on a regular basis, she states she goes to the [facility] 3 times a week, she states she swims and participates in regular exercise activities without significant shortness of breath. Patient has been afebrile, hemodynamically stable. Urinalysis revealed pyuria, urine culture was positive for group B strep agalactiae. Patient did admit to having urinary urgency, but denies any burning. She was started on IV Rocephin. We're asked to see the patient in regards to the 4 mm nodule in the right apex of the lung, which was an incidental finding on the CT of the neck. On 11/10/2017 patient seen again in follow-up. She is resting comfortably in bed, she states she has not had any episodes of epistaxis today. Her right facial and right neck pain are improving, neurology is following, and making adjustments to her medications for her trigeminal neuralgia. Lung sounds are positive for a few rhonchi, good air entry bilaterally, no wheezing. She remains on 2 L per nasal cannula, with a pulse ox at around 90-92%. She did have a fever of 101.1F last night at 2300. Low-grade fevers this morning. She remains on Rocephin for her acute urinary tract infection. Urine culture was positive for strep group B, although the colony count was low. Patient remains weak, she was advised to increase her activity today, sit up and ambulate with assistance. She states she is feeling better today compared to when she came in. WBC is 10.8, hemoglobin is 12.4, electrolytes and renal profile are within normal limits. From pulmonary standpoint patient is stable, we will sign off and follow the patient on an outpatient basis for the right millimeter right apical lung nodule. On 11/12/2017 we were asked to see the patient again in regards to concern to hypotension, coughing, coarse lung sounds, and potential fluid overload. Patient had an episode of hypotension with a BP of 87/42 this morning, although she remained asymptomatic with that. She does state that this morning the patient was given a breathing treatment of ipratropium after which she developed severe coughing spell and bilateral chest wall pain from coughing. Patient denies any fever or chills, does have a congested nonproductive cough. Chest x-ray was obtained and it shows interstitial lung disease, with a possible left lower lobe atelectasis. Doubt pneumonia. Patient has been on Invanz for the concern of urinary tract infection. Urine culture is positive for group B strep agalactiae. Blood cultures have been negative. Today's blood work shows a BBC of 9.1, hemoglobin of 12.4, electrolytes are within normal limits, renal profile is normal. Troponin was negative 1, influenza screen was negative. EKG was taken and showed atrial fibrillation with a heart rate of 94 BPM. Patient is on Xarelto for anticoagulation of her chronic A. fib. During my evaluation patient is resting in bed, denies any acute distress. She states her bilateral chest wall tenderness is exacerbated by episodes of coughing. Lung sounds are diminished with scattered wheezes and a few bibasilar crackles. Patient has been mostly on bed rest, although did get up and ambulate yesterday. She is currently afebrile, with the vitals as follows, temperature of 98.4F, heart rate is 86 BPM, respiratory rate is 16, blood pressure is 137/59, and pulse ox of 95% on 3 L per nasal cannula. Patient is on Symbicort, ipratropium nebulized treatments in place of her Spiriva. We will switch the ipratropium to DuoNeb nebulized treatments, continue with Symbicort, we will add IV Solu-Medrol 40 mg every 8 hours. Patient is awake alert, skin is warm and dry, no evidence of hypoperfusion. She denies any acute distress. We will add a proBNP. Increase patient's activity, add incentive spirometry. Continue with current antibiotic coverage. Chest x-ray was reviewed by Dr. Ramirez, and compared to the chest x-ray from , the interstitial prominence is stable in appearance. There is left lower lobe density, likely atelectasis, doubt pneumonia. The patient is seen again today 11/13/2017 in follow-up on the regular medical floor. She is awake and alert in no acute distress. She denies any worsening shortness of breath, cough or congestion. She is maintaining good O2 saturations in the mid 90s on 3 L/m per nasal cannula. She's been afebrile. She's been hemodynamically stable. Blood culture reveals no growth to date. White count 11.4. Hemoglobin 12.9. Creatinine 0.82. She has been maintained on DuoNeb inhalations, Symbicort, Singulair, IV Solu-Medrol. She has been on antibiotics in the form of ertapenem. Objective - Vital Signs Vital signs: Vital Signs Temp 97.4 F L 11/13/17 06:31 Pulse 80 11/13/17 06:31 Resp 20 11/13/17 06:31 BP 119/73 11/13/17 06:31 Pulse Ox 95 11/13/17 06:31 Intake & Output 11/12/17 11/13/17 11/13/17 18:59 06:59 18:59 Intake Total 200 600 Balance 200 600 Intake: Oral 200 600 Other: Voiding Method Toilet Toilet Bedside Commode Bedside Commode # Voids 2 2 # Bowel Movements 2 - Exam GENERAL EXAM: Alert, pleasant, 67-year-old white female comfortable in no apparent distress. HEAD: Normocephalic/atraumatic. EYES: Normal reaction of pupils, equal size. Conjunctiva pink, sclera white. NOSE: Clear with pink turbinates. THROAT: No erythema or exudates. NECK: No masses, no JVD, no thyroid enlargement, no adenopathy. CHEST: No chest wall deformity. Symmetrical expansion. LUNGS: Equal air entry with no crackles, wheeze, rhonchi or dullness. CVS: Irregular rate and rhythm, normal S1 and S2, no gallops, no murmurs, no rubs ABDOMEN: Soft, nontender. No hepatosplenomegaly, normal bowel sounds, no guarding or rigidity. EXTREMITIES: No clubbing, no edema, no cyanosis, 2+ pulses and upper and lower extremities. MUSCULOSKELETAL: Muscle strength and tone normal. SPINE: No scoliosis or deformity SKIN: No rashes CENTRAL NERVOUS SYSTEM: Alert and oriented -3. No focal deficits, tone is normal in all 4 extremities. PSYCHIATRIC: Alert and oriented -3. Appropriate affect. Intact judgment and insight. - Labs CBC & Chem 7: 11/13/17 08:13 11/13/17 08:13 Labs: Abnormal Lab Results - Last 24 Hours (Table) 11/12/17 11/12/17 11/13/17 Range/Units 17:14 20:40 07:15 WBC (3.8-10.6) k/uL MCHC (31.0-37.0) g/dL RDW (11.5-15.5) % Glucose (74-99) mg/dL POC Glucose (mg/dL) 138 H 138 H 110 H (75-99) mg/dL 11/13/17 11/13/17 Range/Units 08:13 08:13 WBC 11.4 H (3.8-10.6) k/uL MCHC 30.6 L (31.0-37.0) g/dL RDW 16.5 H (11.5-15.5) % Glucose 150 H (74-99) mg/dL POC Glucose (mg/dL) (75-99) mg/dL Microbiology - Last 24 Hours (Table) 11/10/17 00:30 Blood Culture - Preliminary Blood No Growth after 72 hours 11/07/17 16:53 Blood Culture - Preliminary Blood No Growth after 120 hours Assessment and Plan Assessment: Assessment: #1. Acute COPD exacerbation. Chest x-ray from 11/12/2017 shows interstitial lung disease, left lower lobe density, likely related to atelectasis, doubt pneumonia. #2. 4 mm right apical lung nodule, an incidental finding on the CT neck from completed for the purpose of investigation of acute right neck pain and right facial pain. Patient carries 2 pack a day for 47 years smoking history, this will be followed up on an outpatient basis with a CT chest with contrast. #3. Acute urinary tract infection. Urine culture is positive for group B strep agalactiae, initiated on IV Rocephin #4. Acute right facial, orbital pain and right neck pain, CT of the neck revealed a sinonasal mass, being followed by day ENT service who has performed a flexible diagnostic nasal endoscopy which revealed an inflammatory mass. Biopsy is recommended outpatient basis #5. Recurrent intermittent epistaxis probably secondary to the above #6. COPD, currently stable #7. Chronic A. fib, on anticoagulation with Xarelto #8. Acute kidney injury, possibly related to ATN, on admission creatinine was 1.45, currently is down to 0.82. Recovered #9. Mild hyperkalemia, present on admission, 5.2, down to 4.6, patient was given a dose of Kayexalate #10. Carotid artery stenosis, MRA of the head from 11/09/2017 revealed completely occluded right vertebral and internal carotid arteries. #11. History of vascular dementia #12. History of coronary artery disease with cardiac stents #13. History of myocardial infarction #14. History of renal cancer status post right nephrectomy Plan: The patient was seen and evaluated by Dr. Ramirez. She is stable from the pulmonary standpoint. She could be discharged home on oral prednisone taper, oral antibiotics. Continue Symbicort, Singulair, DuoNeb inhalations. Follow- up in our office in 1-2 weeks' time. She is however encouraged to call sooner with any recurrence of symptoms or other questions or concerns. We'll follow the 4 mm right apical nodule in the outpatient setting as well. I, the cosigning physician, performed a history & physical examination of the patient. Lungs sounds have faint end expiratory wheeze. Diminished. Maintaining good O2 saturations in the 90s on 3 L/m per nasal cannula. I discussed the assessment and plan of care with my nurse practitioner, Trisha De Los Santos. I attest to the above note as dictated by her.
[2017-11-13 12:17] LABS: Glucose,Whole Blood 163 mg/dL (75-99)
[2017-11-13] MEDS: traMADol 50 MG TAB PO PRN ×2 (14:00→20:45)
--- NOTE | 2017-11-13 14:42 | CONS ---
CONSULTATION Kathy is a 67-year-old lady with history of COPD, chronic atrial fibrillation, coronary artery disease, hypertension, dyslipidemia, prior TIA who presented to hospital with symptoms of fatigue, tiredness, fever and chills and epistaxis. She was treated with antibiotics with improvement in her symptoms. Cardiology is consulted because of an episode of chest pain and atrial fibrillation with somewhat of a poorly controlled ventricular rate. At the time of my evaluation today, her heart rates are well controlled at 80 beats per minute. Blood pressure is normal. Chest pain has resolved. PAST MEDICAL HISTORY: Significant for chronic atrial fibrillation, COPD, hypertension, hypothyroidism, dyslipidemia. MEDICATIONS: Include Lipitor, Plavix, Lasix, Synthroid, Lopressor, Singulair, Trileptal, Paxil, Protonix, K-Dur, Xarelto and Spiriva. ALLERGIC: To LATEX and PENICILLIN. FAMILY HISTORY: Negative for premature coronary artery disease. SOCIAL HISTORY: Negative for current smoking history, EtOH abuse or drug abuse. REVIEW OF SYSTEMS: HEENT is unremarkable. CARDIAC: As described above. RESPIRATORY: As described above. GI: Negative. GENITOURINARY: Negative. ALLERGY/IMMUNOLOGY: None. MUSCULOSKELETAL: Significant for arthritis. PSYCHOSOCIAL: Negative. ENDOCRINE: Negative. DERM: Negative. CONSTITUTIONAL: Negative. ONCOLOGICAL: Negative. Rest of the system review is not relevant. PHYSICAL EXAM: Patient is comfortable at rest. Vital signs are stable. There is no jugular venous distention. Chest exam reveals diminished air entry at the bases. Heart exam reveals first and second heart sounds, systolic murmur at the apex. Abdomen is soft. Exam of the extremities did not reveal any edema. Peripheral pulses are diminished. EKG was done on 11/07 and shows atrial fibrillation with poorly-controlled ventricular rate. ASSESSMENT: 1. Chronic atrial fibrillation with fairly controlled ventricular rate. Patient is on Xarelto, which I am going to continue and beta blockers, which will be continued. 2. Chest pain, atypical, probably noncardiac. She had a cardiac catheterization within the last 2 years that revealed stable moderate lesion in the LAD. 3. History of peripheral vascular disease, chronic and stable. PLAN: Patient does not require further cardiac workup at this time. Thank you for allowing me to participate in this pleasant lady. MMODL / IJN: [id number] /
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
[2017-11-13 16:57] LABS: Glucose,Whole Blood 136 mg/dL (75-99)
[2017-11-13] MEDS: RIVAROXABAN 15 MG TAB PO SCH (17:58)
[2017-11-13] MEDS: MONTELUKAST 10 MG TAB PO SCH (20:46)
[2017-11-13] MEDS: MELATONIN 3 MG TABLET PO SCH (20:46)
[2017-11-13] MEDS: ERTAPENEM 1 GM in SODIUM CHLORIDE 0.9% 50 ML IVPB SCH (20:53)
[2017-11-13 21:58] LABS: Glucose,Whole Blood 135 mg/dL (75-99)
--- NOTE | 2017-11-13 22:56 | P.PN ---
Subjective Progress Note Date: 11/13/17 67-year-old female with history of underlying COPD that is treated with Brieo-Eliipta and Spiriva but not on oxygen at home presents to Hospital feeling poorly for several days. She relates that she awoke with severe pain to the right side of her neck, right facial pain associated with fever and shaking chills and progressive weakness. She presented emergency center with these severe pains and underwent imaging studies. There was no evidence of any intracranial lesions but was without evidence of a significant obliteration of the right fossa of Rosenmuller. She did undergo flexible nasal endoscopy showed evidence of the right-sided nasal mass that had extensive crusting possibly due to bleeding from her Xarelto therapy. She was having extensive amounts of epistaxis that have now improved and she is blowing her nose much less as directed. Is related she will have outpatient evaluation and biopsy. The patient's neck pain and facial discomforts have improved since coming to Hospital being treated with medications and Rocephin. She over does develop recurrent fever, she's having some worsening shortness of breath, and is developed right-sided flank pain and urinary urgency and pelvic discomfort. With concerns to urinary tract infection, the significant abnormality to her sinuses the infectious diseases consultation was requested. The patient has been seen by pulmonary critical care for her abnormality which includes a 4 mm nodule in the right apex. 11/11/2017 revealed the patient to be feeling somewhat better. She still had some fever within the last 24 hours. This evening she has no chills or rigors. She's been able to eat without great difficulties. Denies any new discomforts to her face or sinus, no active epistaxis. 11/12/2017 the patient became more short of breath. She's been seen by the banana loader. No further fever. Steroids have been added to improve her pulmonary status. No further epistaxis but no still feels very uncomfortable. She is noticing that her cough is changed in its now slightly productive. No hemoptysis. 11/13/2017 reveals that the patient is less short of breath. Her chest is clearing as she has been able to now have a bit of a productive cough to clear her chest. She's having no epistaxis or hemoptysis. Sinuses feeling slightly better with less discomfort. Objective - Vital Signs Vital signs: Vital Signs Temp 97.6 F 11/13/17 15:00 Pulse 99 11/13/17 15:00 Resp 18 11/13/17 15:00 BP 115/65 11/13/17 15:00 Pulse Ox 90 L 11/13/17 15:00 Intake & Output 11/13/17 11/13/17 11/14/17 06:59 18:59 06:59 Intake Total 600 Balance 600 Intake: Oral 600 Other: Voiding Method Toilet Toilet Bedside Commode # Voids 2 3 # Bowel Movements 3 - Exam 67-year-old woman who has cachexia, seems to be mildly short of breath is having no active bleeding HEENT: Anicteric conjunctiva are pink and moist nasal mucosa grossly intact without significant lesions, there is no thrush. Nasal cavity without active bleeding Neck: The neck is supple without significant lymphadenopathy or thyromegaly. Lungs: Symmetrical air entry is noted, expiratory wheezes with the lung chamberlain, no paola bronchial sounds, no dullness or egophony Heart: Irregular with a soft S4. There is no significant murmur click or rub, PMI was nondisplaced. Abdomen: Positive bowel sounds soft and nontender without palpable masses or organomegaly. There was no guarding or rebound. Extremities: The upper extremities have excellent pulses they are symmetric, no significant petechiae or telangiectasia. No splinter hemorrhages were noted. The lower extremities are free from significant edema. The peripheral pulses were 2+ and symmetric. Neuro: Awake alert oriented to person place and time. There are no acute new gross focal sensory motor deficits. - Labs CBC & Chem 7: 11/13/17 08:13 11/13/17 08:13 Labs: Abnormal Lab Results - Last 24 Hours (Table) 11/13/17 11/13/17 11/13/17 Range/Units 07:15 08:13 08:13 WBC 11.4 H (3.8-10.6) k/uL MCHC 30.6 L (31.0-37.0) g/dL RDW 16.5 H (11.5-15.5) % Neutrophils # 10.0 H (1.3-7.7) k/uL Glucose 150 H (74-99) mg/dL POC Glucose (mg/dL) 110 H (75-99) mg/dL 11/13/17 11/13/17 11/13/17 Range/Units 12:04 16:48 21:50 WBC (3.8-10.6) k/uL MCHC (31.0-37.0) g/dL RDW (11.5-15.5) % Neutrophils # (1.3-7.7) k/uL Glucose (74-99) mg/dL POC Glucose (mg/dL) 163 H 136 H 135 H (75-99) mg/dL Microbiology - Last 24 Hours (Table) 11/07/17 16:53 Blood Culture - Final Blood No Growth after 144 hours 11/10/17 00:30 Blood Culture - Preliminary Blood No Growth after 72 hours Laboratory Results WBC 11.4 k/uL (3.8-10.6) H 11/13/17 08:13 RBC 5.14 m/uL (3.80-5.40) 11/13/17 08:13 Hgb 12.9 gm/dL (11.4-16.0) 11/13/17 08:13 Hct 42.2 % (34.0-46.0) 11/13/17 08:13 MCV 82.1 fL (80.0-100.0) 11/13/17 08:13 MCH 25.1 pg (25.0-35.0) 11/13/17 08:13 MCHC 30.6 g/dL (31.0-37.0) L 11/13/17 08:13 RDW 16.5 % (11.5-15.5) H 11/13/17 08:13 Plt Count 299 k/uL (150-450) 11/13/17 08:13 Neutrophils % 87 % 11/13/17 08:13 Lymphocytes % 11 % 11/13/17 08:13 Monocytes % 2 % 11/13/17 08:13 Eosinophils % 0 % 11/13/17 08:13 Basophils % 0 % 11/13/17 08:13 Neutrophils # 10.0 k/uL (1.3-7.7) H 11/13/17 08:13 Lymphocytes # 1.2 k/uL (1.0-4.8) 11/13/17 08:13 Monocytes # 0.2 k/uL (0-1.0) 11/13/17 08:13 Eosinophils # 0.0 k/uL (0-0.7) 11/13/17 08:13 Basophils # 0.0 k/uL (0-0.2) 11/13/17 08:13 Manual Slide Review Performed 11/13/17 08:13 Hypochromasia Slight 11/13/17 08:13 Anisocytosis Slight 11/13/17 08:13 ESR 8 mm/hr (0-20) 11/10/17 08:06 PT 11.2 sec (9.0-12.0) 11/07/17 13:44 INR 1.2 (<1.2) H 11/07/17 13:44 APTT 24.6 sec (22.0-30.0) 11/07/17 13:44 Sodium 143 mmol/L (137-145) 11/13/17 08:13 Potassium 4.6 mmol/L (3.5-5.1) 11/13/17 08:13 Chloride 105 mmol/L (98-107) 11/13/17 08:13 Carbon Dioxide 24 mmol/L (22-30) 11/13/17 08:13 Anion Gap 14 mmol/L 11/13/17 08:13 BUN 15 mg/dL (7-17) 11/13/17 08:13 Creatinine 0.82 mg/dL (0.52-1.04) 11/13/17 08:13 Est GFR (CKD-EPI)AfAm 86 (>60 ml/min/1.73 sqM) 11/13/17 08:13 Est GFR (CKD-EPI)NonAf 75 (>60 ml/min/1.73 sqM) 11/13/17 08:13 Glucose 150 mg/dL (74-99) H 11/13/17 08:13 POC Glucose (mg/dL) 135 mg/dL (75-99) H 11/13/17 21:50 POC Glu Dice Table Person ID Aysha Pires 11/13/17 21:[address] Glu mg/dL 123 11/12/17 07:43 Hemoglobin A1c 5.9 % (4.0-6.0) 11/12/17 07:43 Plasma Lactic Acid Joshua 1.1 mmol/L (0.7-2.0) 11/07/17 16:53 Calcium 9.6 mg/dL (8.4-10.2) 11/13/17 08:13 Total Bilirubin 0.3 mg/dL (0.2-1.3) 11/13/17 08:13 AST 35 U/L (14-36) 11/13/17 08:13 ALT 41 U/L (9-52) 11/13/17 08:13 Alkaline Phosphatase 95 U/L (38-126) 11/13/17 08:13 Total Creatine Kinase 24 U/L (30-135) L 11/12/17 07:34 CK-MB (CK-2) 0.8 ng/mL (0.0-2.4) 11/12/17 07:34 CK-MB (CK-2) Rel Index 3.3 11/12/17 07:34 Troponin I <0.012 ng/mL (0.000-0.034) 11/12/17 07:34 C-Reactive Protein 36.6 mg/L (<10.0) H 11/10/17 08:06 NT-Pro-B Natriuret Pep 4780 pg/mL 11/12/17 15:46 Total Protein 6.5 g/dL (6.3-8.2) 11/13/17 08:13 Albumin 3.6 g/dL (3.5-5.0) 11/13/17 08:13 Angiotensin Convert Enz 30 U/L (8-52) 11/10/17 08:06 Urine Color Yellow 11/07/17 14:53 Urine Appearance Cloudy (Clear) H 11/07/17 14:53 Urine pH 6.5 (5.0-8.0) 11/07/17 14:53 Ur Specific [place] 1.017 (1.001-1.035) 11/07/17 14:53 Urine Protein Trace (Negative) H 11/07/17 14:53 Urine Glucose (UA) Negative (Negative) 11/07/17 14:53 Urine Ketones Trace (Negative) H 11/07/17 14:53 Urine Blood Negative (Negative) 11/07/17 14:53 Urine Nitrite Negative (Negative) 11/07/17 14:53 Urine Bilirubin Negative (Negative) 11/07/17 14:53 Urine Urobilinogen <2.0 mg/dL (<2.0) 11/07/17 14:53 Ur Leukocyte Esterase Large (Negative) H 11/07/17 14:53 Urine RBC 3 /hpf (0-5) 11/07/17 14:53 Urine WBC 119 /hpf (0-5) H 11/07/17 14:53 Ur Squamous Epith Cells 2 /hpf (0-4) 11/07/17 14:53 Hyaline Casts 12 /lpf (0-2) H 11/07/17 14:53 Urine Mucus Rare /hpf (None) H 11/07/17 14:53 c-ANCA <1:20 Titer (<1:20) 11/10/17 08:06 p-ANCA <1:20 Titer (<1:20) 11/10/17 08:06 Influenza Type A RNA Not Detected (Not Detectd) 11/11/17 12:48 Influenza Type B (PCR) Not Detected (Not Detectd) 11/11/17 12:48 Microbiology 11/07/17 16:53 Blood Blood Culture - Final No Growth after 144 hours 11/10/17 00:30 Blood Blood Culture - Preliminary No Growth after 72 hours 11/07/17 14:53 Urine,Voided Urine Culture - Final Strep agalactiae - (group b) Assessment and Plan (1) Fever Narrative/Plan: 67 year old female who presents to Hospital feeling quite poorly neck pain and sinus pain at admission. She was evaluated by otolaryngology and a spot evidence of a right nasal mass which he be further evaluated as an outpatient. She is been on Xarelto and the sinus area was crusted and bloody and with this issue Xarelto was held briefly and no more bleeding is noted. Her pain is markedly improved since coming to hospital. Patient however has developed recurrent fever and developed some right flank pain associated with some urinary frequency and worsening malaise. Has been followed evidence of urinary tract infection not responding well to current antibiotic therapy of Rocephin. The patient's blood cultures are negative and urine culture is finalized on his Streptococcus agalactiae which is group B strep. Patient overs developed fever and there is concerns to the sinus lesion as a potential ongoing source of fever given its significant obstructive process. We'll alter antibiotic therapy to Invanz and monitor her response. She has had an increased leukocytosis without evidence of steroid use. The patient does have known significant carotid disease that has been redemonstrated by her MRI with MRA. 11/11/2017 reveals the patient still hasn't had some fever overnight. It is definitely more comfortable. Leukocytosis is trending to improvement. Her other new acute changes at this time. We'll continue the current antibiotic therapy of Invanz for a more resistant urinary tract infection while cultures are process probably group B strep was found. Does have evidence of the extensive sinus disease which may also be an etiology of some ongoing fever, goal for ertapenem to also treat this site. 11/12/2017 patient was a bit more short of breath and is now receiving some steroids in addition to breathing treatments and her antibiotic therapy which of Invanz to treat the group B strep as well as the significant lesion within the sinus. We'll also provide treatment of pulmonary infection at this time. Continue ongoing supportive care. Discharge plan is not clear at this time. 11/13/2017 reveals that the patient is Lesch short of breath and is feeling better than yesterday. The addition of steroids has definitely helped her shortness of breath. Is also likely help some of the discomfort in her sinuses by reducing the swelling. No epistaxis or hemoptysis. Her chest is clearing and that she's now been able to have a bit of a productive cough to clear her secretions. Denies fevers or chills. Urine culture group B strep is noted and she is being treated with ertapenem for the sinus and urinary infection and also if there was potential pneumonia. Fortunately she is having improvement this will continue. She will have outpatient sinus surgery Current Visit: Yes Status: Acute Code(s): R50.9 - FEVER, UNSPECIFIED SNOMED Code(s): 782688621 (2) Leukocytosis Current Visit: Yes Status: Acute Code(s): D72.829 - ELEVATED WHITE BLOOD CELL COUNT, UNSPECIFIED SNOMED Code(s): 774266249 (3) COPD (chronic obstructive pulmonary disease) Current Visit: Yes Status: Acute Code(s): J44.9 - CHRONIC OBSTRUCTIVE PULMONARY DISEASE, UNSPECIFIED SNOMED Code(s): 53029061 (4) Nasal mass Current Visit: Yes Status: Acute Code(s): R22.0 - LOCALIZED SWELLING, MASS AND LUMP, HEAD SNOMED Code(s): 081469738 (5) Urinary tract infection Current Visit: Yes Status: Acute Code(s): N39.0 - URINARY TRACT INFECTION, SITE NOT SPECIFIED SNOMED Code(s): 15053889
[2017-11-14] MEDS: methylPREDNISolone SOD SUCCI 40 MG/ML 1 ML VIAL IV SCH ×3 (04:51→19:49)
[2017-11-14] MEDS: LEVOTHYROXINE 100 MCG TAB PO SCH (06:30)
[2017-11-14] MEDS: SYMBICORT 80-4.5 MCG INHALER INHALATION SCH ×2 (07:23→21:25)
[2017-11-14] MEDS: IPRATROPIUM-ALBUTEROL 3 ML NEB INHALATION SCH ×4 (07:23→21:25)
[2017-11-14 07:32] LABS: Glucose,Whole Blood 110 mg/dL (75-99)
[2017-11-14] MEDS: INSULIN ASPART 100 UNIT/ML 1 ML 10 ML VIAL SQ SCH ×2 (07:40→17:35)
[2017-11-14] MEDS: GABAPENTIN 100 MG CAP PO SCH ×3 (07:40→21:28)
[2017-11-14] MEDS: PARoxetine 10 MG TAB PO SCH ×2 (07:45→19:50)
[2017-11-14] MEDS: FERROUS SULFATE 325 MG TAB PO SCH (07:46)
[2017-11-14] MEDS: CLOPIDOGREL 75 MG TAB PO SCH (07:46)
[2017-11-14] MEDS: METOPROLOL TARTRATE 25 MG TAB PO SCH ×2 (07:46→19:50)
[2017-11-14] MEDS: FUROSEMIDE 40 MG TAB PO SCH (07:46)
[2017-11-14] MEDS: MAGNESIUM OXIDE 400 MG TAB PO SCH (07:47)
[2017-11-14] MEDS: ATORVASTATIN 20 MG TAB PO SCH (07:47)
[2017-11-14] MEDS: DOCUSATE 100 MG CAP PO SCH ×2 (07:47→19:53)
[2017-11-14] MEDS: LURASIDONE 40 MG TAB PO SCH (07:47)
[2017-11-14] MEDS: CALCIUM POLYCARBOPHIL 625 MG TAB PO SCH (07:47)
[2017-11-14] MEDS: PANTOPRAZOLE 40 MG TABLET PO SCH (07:47)
--- NOTE | 2017-11-14 07:59 | ECHOF ---
Referral Reason:CP, hypotension, AF w/RVR MEASUREMENTS -------- HEIGHT: 165.1 cm WEIGHT: 70.8 kg BP: IVSd: 1.2 cm (0.6 - 1.1) LVIDd: 3.8 cm (3.9 - 5.3) LVPWd: 1.3 cm (0.6 - 1.1) EDV(Teich): 60 ml IVSs: 1.6 cm LVIDs: 2.7 cm LVPWs: 1.2 cm %IVS Thck: 28 % ESV(Teich): 28 ml EF(Teich): 53 % %FS: 27 % SV(Teich): 32 ml LA Diam: 3.4 cm (2.7 - 3.8) RVIDd: 2.9 cm (< 3.3) LALs A4C: 6.1 cm LAAs A4C: 20.6 cm LAESV A-L A4C: 59 ml LAESV MOD A4C: 55 ml LALs A2C: 6.6 cm LAAs A2C: 24.5 cm LAESV A-L A2C: 78 ml LAESV MOD A2C: 75 ml LAESV(A-L): 70 ml LAESV Index (A-L): 39.51 ml/m Ao Diam: 2.4 cm (2.0 - 3.7) LA Diam: 4.3 cm (2.7 - 3.8) AV Cusp: 1.4 cm (1.5 - 2.6) EPSS: 0.6 cm MV E Mickey: 1.18 m/s MV DecT: 222 ms MV Dec [place]: 5.3 m/s MV A Mickey: 0.21 m/s MV E/A Ratio: 5.57 MV PHT: 64 ms AV Vmax: 1.42 m/s AV maxP.05 mmHg TR Vmax: 2.68 m/s TR maxP.70 mmHg RAP: 5.00 mmHg RVSP: 33.70 mmHg MV EF SLOPE: 40.45 mm/s (70 - 150) MV EXCURSION: 14.58 mm (> 18.000) FINDINGS -------- Sinus rhythm. This was a technically good study. The left ventricular size is normal. There is mild concentric left ventricular hypertrophy. Overa ll left ventricular systolic function is normal with, an EF between 55 - 60 %. The right ventricle is normal in size. LA is severely dilated >40 ml/m2 The right atrial size is normal. The aortic valve is trileaflet, and appears structurally normal. No aortic stenosis or regurgitation. Mild mitral annular calcification present. Mild mitral regurgitation is present. Mild tricuspid regurgitation present. There is no evidence of pulmonary hypertension. The right v entricular systolic pressure, as measured by Doppler, is 33.70mmHg. There is no pulmonic regurgitation present. The aortic root size is normal. There is no pericardial effusion. CONCLUSIONS -------- 1. The left ventricular size is normal. 2. There is mild concentric left ventricular hypertrophy. 3. Overall left ventricular systolic function is normal with, an EF between 55 - 60 %. 4. LA is severely dilated >40 ml/m2 5. The aortic valve is trileaflet, and appears structurally normal. No aortic stenosis or regurgitati on. 6. Mild mitral annular calcification present. 7. Mild mitral regurgitation is present. 8. Mild tricuspid regurgitation present. 9. There is no evidence of pulmonary hypertension. 10. The right ventricular systolic pressure, as measured by Doppler, is 33.70mmHg. 11. There is no pulmonic regurgitation present. 12. The aortic root size is normal. 13. There is no pericardial effusion. BUSINESS ANALYTICS DIRECTOR: Tara Capps RDCS
[2017-11-14 09:32] LABS: Albumin 3.4 g/dL (3.5-5.0); Calcium 9.7 mg/dL (8.4-10.2); Potassium 4.6 mmol/L (3.5-5.1); Total Bilirubin 0.3 mg/dL (0.2-1.3); Total Protein 5.8 g/dL (6.3-8.2)
[2017-11-14 09:33] LABS: Anisocytosis Slight; Basophils % (A) 0 %; Eosinophils % (A) 0 %; HCT 43.1 % (34.0-46.0); HGB 12.8 gm/dL (11.4-16.0); Hypochromasia Slight; Lymphocytes % (A) 6 %; MCH 24.7 pg (25.0-35.0); MCHC 29.6 g/dL (31.0-37.0); MCV 83.3 fL (80.0-100.0); Mean Platelet Volume 7.4; Monocytes # (A) 0.3 k/uL (0-1.0); Monocytes % (A) 2 %; Neutrophils % (A) 92 %; Platelet Count 332 k/uL (150-450); RBC 5.17 m/uL (3.80-5.40); RDW 16.4 % (11.5-15.5); WBC 16.3 k/uL (3.8-10.6)
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
[2017-11-14] MEDS: MULTIVITAMINS, THERA 1 EACH TAB PO SCH (17:33)
[2017-11-14] MEDS: RIVAROXABAN 15 MG TAB PO SCH (17:33)
[2017-11-14] MEDS: traMADol 50 MG TAB PO PRN (19:48)
[2017-11-14] MEDS: ERTAPENEM 1 GM in SODIUM CHLORIDE 0.9% 50 ML IVPB SCH (19:49)
[2017-11-14] MEDS: MONTELUKAST 10 MG TAB PO SCH (19:50)
[2017-11-14] MEDS: MELATONIN 3 MG TABLET PO SCH (19:53)
[2017-11-15] MEDS: methylPREDNISolone SOD SUCCI 40 MG/ML 1 ML VIAL IV SCH ×2 (05:00→11:34)
[2017-11-15] MEDS: LEVOTHYROXINE 100 MCG TAB PO SCH (06:17)
[2017-11-15] MEDS: SYMBICORT 80-4.5 MCG INHALER INHALATION SCH (08:10)
[2017-11-15] MEDS: IPRATROPIUM-ALBUTEROL 3 ML NEB INHALATION SCH ×3 (08:10→16:05)
[2017-11-15] MEDS: CALCIUM POLYCARBOPHIL 625 MG TAB PO SCH (08:35)
[2017-11-15] MEDS: PANTOPRAZOLE 40 MG TABLET PO SCH (08:35)
[2017-11-15] MEDS: LURASIDONE 40 MG TAB PO SCH (08:35)
[2017-11-15] MEDS: FUROSEMIDE 40 MG TAB PO SCH (08:36)
[2017-11-15] MEDS: CLOPIDOGREL 75 MG TAB PO SCH (08:36)
[2017-11-15] MEDS: GABAPENTIN 100 MG CAP PO SCH ×2 (08:36→14:38)
[2017-11-15] MEDS: DOCUSATE 100 MG CAP PO SCH (08:36)
[2017-11-15] MEDS: FERROUS SULFATE 325 MG TAB PO SCH (08:36)
[2017-11-15] MEDS: ATORVASTATIN 20 MG TAB PO SCH (08:36)
[2017-11-15] MEDS: MAGNESIUM OXIDE 400 MG TAB PO SCH (08:37)
[2017-11-15] MEDS: PARoxetine 10 MG TAB PO SCH (08:37)
[2017-11-15] MEDS: METOPROLOL TARTRATE 25 MG TAB PO SCH (08:37)
[2017-11-15] MEDS: MULTIVITAMINS, THERA 1 EACH TAB PO SCH (08:38)
[2017-11-15 09:19] LABS: Albumin 3.3 g/dL (3.5-5.0); Calcium 9.4 mg/dL (8.4-10.2); Total Bilirubin 0.4 mg/dL (0.2-1.3); Total Protein 5.9 g/dL (6.3-8.2)
[2017-11-15 09:27] LABS: Anisocytosis Slight; HCT 43.2 % (34.0-46.0); MCH 26.5 pg (25.0-35.0); MCHC 32.5 g/dL (31.0-37.0); MCV 81.6 fL (80.0-100.0); Platelet Count 355 k/uL (150-450); RBC 5.29 m/uL (3.80-5.40); RDW 16.1 % (11.5-15.5); WBC 14.5 k/uL (3.8-10.6)
[2017-11-15 14:05] LABS: Lymphocytes # (M) 0.87 k/uL (1.0-4.8); Monocytes # (M) 0.15 k/uL (0-1.0); Neutrophils # (M) 13.49 k/uL (1.3-7.7); Neutrophils % (M) 93 %; Nucleated Red Blood Cells 0 /100 WBC (0-0); Total Cells Counted 100
[2017-11-15 15:13] VITALS: BP 106/54; PULSE 110; RESP 16; TEMP 97.6
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
[2017-11-15] MEDS: RIVAROXABAN 15 MG TAB PO SCH (17:24)
--- NOTE | 2017-11-15 21:20 | P.PN ---
Subjective Progress Note Date: 11/15/17 67-year-old female with history of underlying COPD that is treated with Brieo-Eliipta and Spiriva but not on oxygen at home presents to Hospital feeling poorly for several days. She relates that she awoke with severe pain to the right side of her neck, right facial pain associated with fever and shaking chills and progressive weakness. She presented emergency center with these severe pains and underwent imaging studies. There was no evidence of any intracranial lesions but was without evidence of a significant obliteration of the right fossa of Rosenmuller. She did undergo flexible nasal endoscopy showed evidence of the right-sided nasal mass that had extensive crusting possibly due to bleeding from her Xarelto therapy. She was having extensive amounts of epistaxis that have now improved and she is blowing her nose much less as directed. Is related she will have outpatient evaluation and biopsy. The patient's neck pain and facial discomforts have improved since coming to Hospital being treated with medications and Rocephin. She over does develop recurrent fever, she's having some worsening shortness of breath, and is developed right-sided flank pain and urinary urgency and pelvic discomfort. With concerns to urinary tract infection, the significant abnormality to her sinuses the infectious diseases consultation was requested. The patient has been seen by pulmonary critical care for her abnormality which includes a 4 mm nodule in the right apex. 11/11/2017 revealed the patient to be feeling somewhat better. She still had some fever within the last 24 hours. This evening she has no chills or rigors. She's been able to eat without great difficulties. Denies any new discomforts to her face or sinus, no active epistaxis. 11/12/2017 the patient became more short of breath. She's been seen by the right of way appraiser. No further fever. Steroids have been added to improve her pulmonary status. No further epistaxis but no still feels very uncomfortable. She is noticing that her cough is changed in its now slightly productive. No hemoptysis. 11/13/2017 reveals that the patient is less short of breath. Her chest is clearing as she has been able to now have a bit of a productive cough to clear her chest. She's having no epistaxis or hemoptysis. Sinuses feeling slightly better with less discomfort. 11/15/2017 patient has improved and relates to no epistaxis ,and feeling better overall. Objective - Vital Signs Vital signs: Vital Signs Temp 97.6 F 11/15/17 15:00 Pulse 110 H 11/15/17 15:00 Resp 16 11/15/17 15:00 BP 106/54 11/15/17 15:00 Pulse Ox 94 L 11/15/17 16:05 Intake & Output 11/15/17 11/15/17 11/16/17 06:59 18:59 06:59 Intake Total 0 Balance 0 Intake: Oral 0 Other: Voiding Method Toilet Bedside Commode # Voids 1 2 - Exam 67-year-old woman who has cachexia, seems to be mildly short of breath is having no active bleeding HEENT: Anicteric conjunctiva are pink and moist nasal mucosa grossly intact without significant lesions, there is no thrush. Nasal cavity without active bleeding Neck: The neck is supple without significant lymphadenopathy or thyromegaly. Lungs: Symmetrical air entry is noted, expiratory wheezes with the lung chamberlain, no paola bronchial sounds, no dullness or egophony Heart: Irregular with a soft S4. There is no significant murmur click or rub, PMI was nondisplaced. Abdomen: Positive bowel sounds soft and nontender without palpable masses or organomegaly. There was no guarding or rebound. Extremities: The upper extremities have excellent pulses they are symmetric, no significant petechiae or telangiectasia. No splinter hemorrhages were noted. The lower extremities are free from significant edema. The peripheral pulses were 2+ and symmetric. Neuro: Awake alert oriented to person place and time. There are no acute new gross focal sensory motor deficits. - Labs CBC & Chem 7: 11/15/17 08:20 11/15/17 08:20 Labs: Abnormal Lab Results - Last 24 Hours (Table) 11/15/17 11/15/17 Range/Units 08:20 08:20 WBC 14.5 H (3.8-10.6) k/uL RDW 16.1 H (11.5-15.5) % Neutrophils # (Manual) 13.49 H (1.3-7.7) k/uL Lymphocytes # (Manual) 0.87 L (1.0-4.8) k/uL Carbon Dioxide 21 L (22-30) mmol/L BUN 23 H (7-17) mg/dL Glucose 122 H (74-99) mg/dL AST 54 H (14-36) U/L ALT 91 H (9-52) U/L Total Protein 5.9 L (6.3-8.2) g/dL Albumin 3.3 L (3.5-5.0) g/dL Microbiology - Last 24 Hours (Table) 11/10/17 00:30 Blood Culture - Preliminary Blood No Growth after 120 hours Laboratory Results WBC 14.5 k/uL (3.8-10.6) H 11/15/17 08:20 RBC 5.29 m/uL (3.80-5.40) 11/15/17 08:20 Hgb 14.0 gm/dL (11.4-16.0) 11/15/17 08:20 Hct 43.2 % (34.0-46.0) 11/15/17 08:20 MCV 81.6 fL (80.0-100.0) 11/15/17 08:20 MCH 26.5 pg (25.0-35.0) 11/15/17 08:20 MCHC 32.5 g/dL (31.0-37.0) 11/15/17 08:20 RDW 16.1 % (11.5-15.5) H 11/15/17 08:20 Plt Count 355 k/uL (150-450) 11/15/17 08:20 Neutrophils % REHAB/PRE VOCATIONAL COUNSELOR 11/15/17 08:20 Neutrophils % (Manual) 93 % 11/15/17 08:20 Lymphocytes % REHAB/PRE VOCATIONAL COUNSELOR 11/15/17 08:20 Lymphocytes % (Manual) 6 % 11/15/17 08:20 Monocytes % REHAB/PRE VOCATIONAL COUNSELOR 11/15/17 08:20 Monocytes % (Manual) 1 % 11/15/17 08:20 Eosinophils % REHAB/PRE VOCATIONAL COUNSELOR 11/15/17 08:20 Basophils % REHAB/PRE VOCATIONAL COUNSELOR 11/15/17 08:20 Neutrophils # REHAB/PRE VOCATIONAL COUNSELOR 11/15/17 08:20 Neutrophils # (Manual) 13.49 k/uL (1.3-7.7) H 11/15/17 08:20 Lymphocytes # REHAB/PRE VOCATIONAL COUNSELOR 11/15/17 08:20 Lymphocytes # (Manual) 0.87 k/uL (1.0-4.8) L 11/15/17 08:20 Monocytes # REHAB/PRE VOCATIONAL COUNSELOR 11/15/17 08:20 Monocytes # (Manual) 0.15 k/uL (0-1.0) 11/15/17 08:20 Eosinophils # REHAB/PRE VOCATIONAL COUNSELOR 11/15/17 08:20 Basophils # REHAB/PRE VOCATIONAL COUNSELOR 11/15/17 08:20 Nucleated RBCs 0 /100 WBC (0-0) 11/15/17 08:20 Manual Slide Review Performed 11/15/17 08:20 Hypochromasia Slight 11/14/17 09:04 Anisocytosis Slight 11/15/17 08:20 ESR 8 mm/hr (0-20) 11/10/17 08:06 PT 11.2 sec (9.0-12.0) 11/07/17 13:44 INR 1.2 (<1.2) H 11/07/17 13:44 APTT 24.6 sec (22.0-30.0) 11/07/17 13:44 Sodium 139 mmol/L (137-145) 11/15/17 08:20 Potassium 5.0 mmol/L (3.5-5.1) 11/15/17 08:20 Chloride 104 mmol/L (98-107) 11/15/17 08:20 Carbon Dioxide 21 mmol/L (22-30) L 11/15/17 08:20 Anion Gap 14 mmol/L 11/15/17 08:20 BUN 23 mg/dL (7-17) H 11/15/17 08:20 Creatinine 0.94 mg/dL (0.52-1.04) 11/15/17 08:20 Est GFR (CKD-EPI)AfAm 73 (>60 ml/min/1.73 sqM) 11/15/17 08:20 Est GFR (CKD-EPI)NonAf 64 (>60 ml/min/1.73 sqM) 11/15/17 08:20 Glucose 122 mg/dL (74-99) H 11/15/17 08:20 POC Glucose (mg/dL) 110 mg/dL (75-99) H 11/14/17 07:28 POC Glu Physical Science Teacher ID Hailey Norman 11/14/17 07:[address] Glu mg/dL 123 11/12/17 07:43 Hemoglobin A1c 5.9 % (4.0-6.0) 11/12/17 07:43 Plasma Lactic Acid Joshua 1.1 mmol/L (0.7-2.0) 11/07/17 16:53 Calcium 9.4 mg/dL (8.4-10.2) 11/15/17 08:20 Total Bilirubin 0.4 mg/dL (0.2-1.3) 11/15/17 08:20 AST 54 U/L (14-36) H 11/15/17 08:20 ALT 91 U/L (9-52) H 11/15/17 08:20 Alkaline Phosphatase 90 U/L (38-126) 11/15/17 08:20 Total Creatine Kinase 24 U/L (30-135) L 11/12/17 07:34 CK-MB (CK-2) 0.8 ng/mL (0.0-2.4) 11/12/17 07:34 CK-MB (CK-2) Rel Index 3.3 11/12/17 07:34 Troponin I <0.012 ng/mL (0.000-0.034) 11/12/17 07:34 C-Reactive Protein 36.6 mg/L (<10.0) H 11/10/17 08:06 NT-Pro-B Natriuret Pep 4780 pg/mL 11/12/17 15:46 Total Protein 5.9 g/dL (6.3-8.2) L 11/15/17 08:20 Albumin 3.3 g/dL (3.5-5.0) L 11/15/17 08:20 Angiotensin Convert Enz 30 U/L (8-52) 11/10/17 08:06 Urine Color Yellow 11/07/17 14:53 Urine Appearance Cloudy (Clear) H 11/07/17 14:53 Urine pH 6.5 (5.0-8.0) 11/07/17 14:53 Ur Specific [place] 1.017 (1.001-1.035) 11/07/17 14:53 Urine Protein Trace (Negative) H 11/07/17 14:53 Urine Glucose (UA) Negative (Negative) 11/07/17 14:53 Urine Ketones Trace (Negative) H 11/07/17 14:53 Urine Blood Negative (Negative) 11/07/17 14:53 Urine Nitrite Negative (Negative) 11/07/17 14:53 Urine Bilirubin Negative (Negative) 11/07/17 14:53 Urine Urobilinogen <2.0 mg/dL (<2.0) 11/07/17 14:53 Ur Leukocyte Esterase Large (Negative) H 11/07/17 14:53 Urine RBC 3 /hpf (0-5) 11/07/17 14:53 Urine WBC 119 /hpf (0-5) H 11/07/17 14:53 Ur Squamous Epith Cells 2 /hpf (0-4) 11/07/17 14:53 Hyaline Casts 12 /lpf (0-2) H 11/07/17 14:53 Urine Mucus Rare /hpf (None) H 11/07/17 14:53 c-ANCA <1:20 Titer (<1:20) 11/10/17 08:06 p-ANCA <1:20 Titer (<1:20) 11/10/17 08:06 Influenza Type A RNA Not Detected (Not Detectd) 11/11/17 12:48 Influenza Type B (PCR) Not Detected (Not Detectd) 11/11/17 12:48 Microbiology 11/10/17 00:30 Blood Blood Culture - Preliminary No Growth after 120 hours 11/07/17 16:53 Blood Blood Culture - Final No Growth after 144 hours 11/07/17 14:53 Urine,Voided Urine Culture - Final Strep agalactiae - (group b) Assessment and Plan (1) Fever Narrative/Plan: 67 year old female who presents to Hospital feeling quite poorly neck pain and sinus pain at admission. She was evaluated by otolaryngology and a spot evidence of a right nasal mass which he be further evaluated as an outpatient. She is been on Xarelto and the sinus area was crusted and bloody and with this issue Xarelto was held briefly and no more bleeding is noted. Her pain is markedly improved since coming to hospital. Patient however has developed recurrent fever and developed some right flank pain associated with some urinary frequency and worsening malaise. Has been followed evidence of urinary tract infection not responding well to current antibiotic therapy of Rocephin. The patient's blood cultures are negative and urine culture is finalized on his Streptococcus agalactiae which is group B strep. Patient overs developed fever and there is concerns to the sinus lesion as a potential ongoing source of fever given its significant obstructive process. We'll alter antibiotic therapy to Invanz and monitor her response. She has had an increased leukocytosis without evidence of steroid use. The patient does have known significant carotid disease that has been redemonstrated by her MRI with MRA. 11/11/2017 reveals the patient still hasn't had some fever overnight. It is definitely more comfortable. Leukocytosis is trending to improvement. Her other new acute changes at this time. We'll continue the current antibiotic therapy of Invanz for a more resistant urinary tract infection while cultures are process probably group B strep was found. Does have evidence of the extensive sinus disease which may also be an etiology of some ongoing fever, goal for ertapenem to also treat this site. 11/12/2017 patient was a bit more short of breath and is now receiving some steroids in addition to breathing treatments and her antibiotic therapy which of Invanz to treat the group B strep as well as the significant lesion within the sinus. We'll also provide treatment of pulmonary infection at this time. Continue ongoing supportive care. Discharge plan is not clear at this time. 11/13/2017 reveals that the patient is Lesch short of breath and is feeling better than yesterday. The addition of steroids has definitely helped her shortness of breath. Is also likely help some of the discomfort in her sinuses by reducing the swelling. No epistaxis or hemoptysis. Her chest is clearing and that she's now been able to have a bit of a productive cough to clear her secretions. Denies fevers or chills. Urine culture group B strep is noted and she is being treated with ertapenem for the sinus and urinary infection and also if there was potential pneumonia. Fortunately she is having improvement this will continue. She will have outpatient sinus surgery 11/15/2017 patient improved and ready for discharge to home. Will utilize moxifloxacin for antibiotic at discharge for 2 weeks and will need ENT follow up for the nasal mass. Outpatient chest x-ray for resolution of pneumonia also helpful. The UTI has resolved and needs no further therapy.Antibiotic was sent to pharmacy. Status: Acute Code(s): R50.9 - FEVER, UNSPECIFIED SNOMED Code(s): 240105176 (2) Leukocytosis Status: Acute Code(s): D72.829 - ELEVATED WHITE BLOOD CELL COUNT, UNSPECIFIED SNOMED Code(s): 501535171 (3) COPD (chronic obstructive pulmonary disease) Status: Acute Code(s): J44.9 - CHRONIC OBSTRUCTIVE PULMONARY DISEASE, UNSPECIFIED SNOMED Code(s): 68988909 (4) Nasal mass Status: Acute Code(s): R22.0 - LOCALIZED SWELLING, MASS AND LUMP, HEAD SNOMED Code(s): 436959427 (5) Urinary tract infection Status: Acute Code(s): N39.0 - URINARY TRACT INFECTION, SITE NOT SPECIFIED SNOMED Code(s): 28895126
--- NOTE | 2017-11-16 15:35 | CDI ---
Last Revision, July 2017 Documentation Clarification Form Date: 11/16/17 From: Iram Kar Mayela Brooks, No Experience between 8:30 am & 5 pm [place] Admit Date: 11/09/2017 8:07:00 AM Patient Name: Kathy Mckeon Visit Number: [id number] Discharge Date: 11/15/17 ATTENTION: The Clinical Documentation Specialists (CDI) and [facility] Coding Staff appreciate your assistance in clarifying documentation. Please respond to the clarification below the line at the bottom and electronically sign. The CDI & [facility] Coding staff will review the response and follow-up if needed. Please note: Queries are made part of the Legal Health Record. If you have any questions, please contact the author of this message via ITS. Dr. Pam Tamayo Per the discharge summary "acute respiratory failure" is documented. Acute respiratory failure is not documented anywhere else in the record. She experienced an acute COPD exacerbation during her hospitalization. History of smoking. On room air on day of admission 11/07 her O2 stat was 96 then on day of discharge 11/15 her O2 stat was 80. No ABGs. She was discharged home on O2. In your professional opinion, can you please clarify if these findings signify one of the following conditions? Acute respiratory ruled Chronic respiratory ruled Specificity: Respiratory Failure, further specify (if known): With hypercapnia? With hypoxia? Other Diagnosis, please specify Unable to determine Please continue to document in your progress notes and discharge summary in order to capture severity of illness and risk of mortality. Include clinical findings that support your diagnosis. To Ashley/Dr. Robin REYES
--- NOTE | 2017-11-17 13:14 | CDI ---
Last Revision, July 2017 Documentation Clarification Form Date: 11/17/17 From: Iram Kar Mayela Brooks, Cabinet Finisher between 8:30 am & 5 pm [place] Admit Date: 11/09/2017 8:07:00 AM Patient Name: Kathy Mckeon Visit Number: [id number] Discharge Date: ATTENTION: The Clinical Documentation Specialists (CDI) and [facility] Coding Staff appreciate your assistance in clarifying documentation. Please respond to the clarification below the line at the bottom and electronically sign. The CDI & [facility] Coding staff will review the response and follow-up if needed. Please note: Queries are made part of the Legal Health Record. If you have any questions, please contact the author of this message via ITS. Dr. Pam Tamayo Per the discharge summary "acute respiratory failure" is documented. Acute respiratory failure is not documented anywhere else in the record. She experienced an acute COPD exacerbation during her hospitalization. History of smoking. On room air on 11/07 her O2 stat was 96 then on 11/15 her O2 stat was 80. No ABGs. She was discharge home on O2. In your professional opinion, can you please clarify? Acute respiratory failure ruled in Chronic respiratory failure ruled in Specificity: Respiratory Failure, further specify (if known): With hypercapnia? With hypoxia? Other Diagnosis, please specify Unable to determine Please continue to document in your progress notes and discharge summary in order to capture severity of illness and risk of mortality. Include clinical findings that support your diagnosis. Please continue to document in your progress notes and discharge summary in order to capture severity of illness and risk of mortality. Include clinical findings that support your diagnosis. MTDD
== END 2017-11-15 19:28 | disposition home or self-care (01) | DRG 871 ==
LOC: EC 12:48 → 4MS4W 16:23 → OBSVTOIN 11-09 08:07
PROVIDERS: ADMIT Internal Medicine; ATTEND Internal Medicine
PROC: 0CJY8ZZ Inspection of Mouth and Throat, Via Natural or Artificial Opening Endoscopic (ICD-10-PCS; principal; 2017-11-08)
DX: A41.9 Sepsis, unspecified organism (principal); J96.01 Acute respiratory failure with hypoxia; N17.9 Acute kidney failure, unspecified; I95.9 Hypotension, unspecified; J84.9 Interstitial pulmonary disease, unspecified; R64 Cachexia; I48.2 Chronic atrial fibrillation; E87.5 Hyperkalemia; I65.01 Occlusion and stenosis of right vertebral artery; J44.1 Chronic obstructive pulmonary disease with (acute) exacerbation; N39.0 Urinary tract infection, site not specified; J98.11 Atelectasis; F01.50 Vascular dementia, unspecified severity, without behavioral disturbance, psychotic disturbance, mood disturbance, and anxiety; E86.0 Dehydration; I65.21 Occlusion and stenosis of right carotid artery; E03.9 Hypothyroidism, unspecified; E78.5 Hyperlipidemia, unspecified; G25.81 Restless legs syndrome; G47.33 Obstructive sleep apnea (adult) (pediatric); I25.10 Atherosclerotic heart disease of native coronary artery without angina pectoris; B95.1 Streptococcus, group B, as the cause of diseases classified elsewhere; K21.0 Gastro-esophageal reflux disease with esophagitis; R29.700 NIHSS score 0; R40.2362 Coma scale, best motor response, obeys commands, at arrival to emergency department; R40.2142 Coma scale, eyes open, spontaneous, at arrival to emergency department; R40.2252 Coma scale, best verbal response, oriented, at arrival to emergency department; I45.10 Unspecified right bundle-branch block; I10 Essential (primary) hypertension; K58.9 Irritable bowel syndrome, unspecified; I73.9 Peripheral vascular disease, unspecified; G50.0 Trigeminal neuralgia; R04.0 Epistaxis; J34.2 Deviated nasal septum; F31.9 Bipolar disorder, unspecified; M19.91 Primary osteoarthritis, unspecified site; I25.2 Old myocardial infarction; R91.1 Solitary pulmonary nodule; K59.00 Constipation, unspecified; J32.9 Chronic sinusitis, unspecified; J34.9 Unspecified disorder of nose and nasal sinuses; K57.90 Diverticulosis of intestine, part unspecified, without perforation or abscess without bleeding; Z68.26 Body mass index [BMI] 26.0-26.9, adult; Z79.01 Long term (current) use of anticoagulants; Z79.02 Long term (current) use of antithrombotics/antiplatelets; Z79.51 Long term (current) use of inhaled steroids; Z79.890 Hormone replacement therapy; Z79.899 Other long term (current) drug therapy; Z86.19 Personal history of other infectious and parasitic diseases; Z90.49 Acquired absence of other specified parts of digestive tract; Z90.710 Acquired absence of both cervix and uterus; Z90.5 Acquired absence of kidney; Z95.5 Presence of coronary angioplasty implant and graft; Z95.828 Presence of other vascular implants and grafts; Z85.528 Personal history of other malignant neoplasm of kidney; Z87.891 Personal history of nicotine dependence; Z86.73 Personal history of transient ischemic attack (TIA), and cerebral infarction without residual deficits; Z88.0 Allergy status to penicillin; Z91.040 Latex allergy status
CPT/HCPCS: 36415; 70490; 70544; 70549; 70553; 71046; 80053; 81001; 82164; 82550; 82553; 83036; 83605; 83880; 84484; 85025; 85610; 85652; 85730; 86140; 86255; 87040; 87086; 87502; 93005; 93306; 94640; 94760; 96361; 96374; 99285

== ENCOUNTER 2017-11-24 19:41 | Inpatient (IN) | payer MEDICARE, OTHER ==
[2017-11-24] MEDS ORDERED: ACETAMINOPHEN TAB 500 MG TAB PO STA (20:16)
[2017-11-24] MEDS ORDERED: RX INFO: IV CONTRAST WAS GIVEN 1 EACH MISC MISCELLANE PRN (20:17)
[2017-11-24 20:53] LABS: Anisocytosis Slight; Basophils % (A) 0 %; Eosinophils # (A) 0.3 k/uL (0-0.7); Eosinophils % (A) 3 %; HGB 12.7 gm/dL (11.4-16.0); Lymphocytes # (A) 1.5 k/uL (1.0-4.8); Lymphocytes % (A) 13 %; MCH 26.3 pg (25.0-35.0); MCHC 31.8 g/dL (31.0-37.0); MCV 82.6 fL (80.0-100.0); Mean Platelet Volume 6.8; Monocytes # (A) 0.6 k/uL (0-1.0); Monocytes % (A) 5 %; Neutrophils % (A) 78 %; Platelet Count 320 k/uL (150-450); RBC 4.84 m/uL (3.80-5.40); RDW 17.3 % (11.5-15.5); WBC 11.6 k/uL (3.8-10.6)
--- NOTE | 2017-11-24 20:54 | ED ---
Arrhythmia/Palpitations HPI - General Source: patient Mode of arrival: ambulatory Limitations: no limitations <Shane Hinds - Last Filed: 11/24/17 21:34> <Talat Polanco - Last Filed: 11/24/17 23:42> - General Chief Complaint: Arrhythmia/Palpitations Stated Complaint: Abnormal Tremors Time Seen by Provider: 11/24/17 20:01 - History of Present Illness Initial Comments: This is a 67-year-old female with a history of a true fibrillation on a liquid who presents emergency department for generalized tremors and palpitations. The patient was recently hospitalized for urinary tract infection and required multiple different antibiotics. She was released recently and has been at home. Family is noticed that her tremors have seemed to worsen and patient started complaining of palpitations today so she was brought back to the emergency department. He does admit to a mild cough however no shortness of breath. She is supposed to be on 2 L of oxygen at home 24 hours a day. She does have a history of smoking however quit multiple years ago. She does admit to some abdominal pain and diarrhea as well. No blood in the stool. No rashes. No leg swelling. No vomiting. Patient was noted to be febrile and tachycardic in triage and was also hypotensive. (Shane Hinds) - Related Data Home Medications Medication Instructions Recorded Confirmed PARoxetine HCL 30 mg PO HS 07/02/14 11/24/17 OXcarbazepine [Trileptal] 150 mg PO HS 11/04/14 11/24/17 Melatonin 3 mg PO HS 03/05/16 11/24/17 Metoprolol Tartrate [Lopressor] 25 mg PO BID 03/05/16 11/24/17 PARoxetine HCL [Paxil] 30 mg PO DAILY 03/05/16 11/24/17 Atorvastatin Calcium [Lipitor] 20 mg PO DAILY 06/13/17 11/24/17 Calcium Polycarbophil [Fibercon] 1,250 mg PO DAILY 06/13/17 11/24/17 Clopidogrel Bisulfate [Plavix] 75 mg PO DAILY 06/13/17 11/24/17 Ferrous Sulfate [Iron (65 MG 325 mg PO DAILY 06/13/17 11/24/17 Elemental)] Furosemide [Lasix] 40 mg PO DAILY 06/13/17 11/24/17 Levothyroxine Sodium [Synthroid] 100 mcg PO DAILY 06/13/17 11/24/17 Lurasidone HCl [Latuda] 20 mg PO DAILY 06/13/17 11/24/17 Magnesium Oxide [Mag-Ox] 400 mg PO DAILY 06/13/17 11/24/17 Montelukast [Singulair] 10 mg PO HS 06/13/17 11/24/17 Pantoprazole Sodium [Protonix] 40 mg PO DAILY 06/13/17 11/24/17 Potassium Chloride [Klor-Con 10] 10 meq PO DAILY 06/13/17 11/24/17 Fluticasone/Vilanterol [Breo 1 puff INHALATION RT-DAILY 06/14/17 11/24/17 Ellipta 100-25 Mcg Inhaler] Tiotropium Offerle [Spiriva] 1 cap INHALATION RT-DAILY 06/14/17 11/24/17 Previous Rx's Medication Instructions Recorded Rivaroxaban [Xarelto] 15 mg PO W/SUPPER #30 tab 06/16/17 Moxifloxacin HCl 400 mg PO DAILY #14 tab 11/15/17 Multivitamins, Thera [Multivitamin 1 each PO DAILY@1200 #30 tab 11/15/17 (formulary)] predniSONE 0 mg PO DIRECTED #12 tab 11/15/17 Allergies Allergy/AdvReac Type Severity Reaction Status Date / Time latex Allergy Rash/Hives Verified 11/24/17 20:05 Penicillins Allergy Unknown Verified 11/24/17 20:05 Childhood Review of Systems ROS Other: All systems not noted in ROS Statement are negative. <Shane Hidns - Last Filed: 11/24/17 21:34> ROS Other: All systems not noted in ROS Statement are negative. <Talat Polanco - Last Filed: 11/24/17 23:42> ROS Statement: Those systems with pertinent positive or pertinent negative responses have been documented in the HPI. Past Medical History Past Medical History: Atrial Fibrillation, Coronary Artery Disease (CAD), Cancer , COPD, CVA/TIA, GERD/Reflux, Hyperlipidemia, Memory Impairment, Myocardial Infarction (NM), Osteoarthritis (OA), Sleep Apnea/CPAP/BIPAP, Thyroid Disorder, Vascular Disorder Additional Past Medical History / Comment(s): 11/28/14 Pt presented to floor s/p PTCA with stenting by Dr. Bernal today. Other HX: VASCULAR DEMENTIA. NO CPAP/ BIPAP. Hypothyroidism, RESTLESS LEG, right internal carotid artery completely occluded. 50-69% stenosis in the left internal carotid artery done, hx kidney cancer, uses O2 PRN, diverticulosis, IBS, PVD, cdiff 2013 Last Myocardial Infarction Date:: 11/03/14 History of Any Multi-Drug Resistant Organisms: None Reported Date of last positivie culture/infection: None Past Surgical History: Cholecystectomy, Ear Surgery, Heart Catheterization With Stent, Hysterectomy, Orthopedic Surgery Additional Past Surgical History / Comment(s): 11/28/14 PTCA with stent, left CAROTID ENDARTERECTOMY. RIGHT NEPHRECTOMY. BILATERAL STENTS IN LOWER EXTREMITIES , L elbow surgery, R ear surgery for blockage. ankle Past Anesthesia/Blood Transfusion Reactions: Motion Sickness Date of Last Stent Placement:: 10/2014 Past Psychological History: Bipolar Smoking Status: Former smoker Past Alcohol Use History: None Reported Past Drug Use History: None Reported - Past Family History Mother Family Medical History: COPD Additional Family Medical History / Comment(s): Mother is . She from respiratory failure. Father Family Medical History: Coronary Artery Disease (CAD), Myocardial Infarction (NM ) Additional Family Medical History / Comment(s): Father had gout <Shane Hinds - Last Filed: 11/24/17 21:34> General Exam Limitations: no limitations <Shane Hinds - Last Filed: 11/24/17 21:34> <Tlaat Polanco - Last Filed: 11/24/17 23:42> - General Exam Comments Initial Comments: Constitutional: Awake alert Appears comfortable Head: Normocephalic atraumatic Eyes: no conjunctival injection No scleral icterus EOMI Neck: No JVD Supple Heart: There is tachycardia with an irregularly irregular rhythm normal S1-S2 no murmurs Lungs: Clear to auscultation bilaterally No wheezing No rales Abdomen: Soft nondistended tenderness to palpation in the epigastric and left upper quadrant Extremities: Non edematous DP pulses intact Radial pulses intact Neuro: A&Ox3 No focal neurologic deficits Psych: Appropriate mood and affect (Shane Hinds) Course <Shane Hinds - Last Filed: 11/24/17 21:34> <Talat Polanco - Last Filed: 11/24/17 23:42> Vital Signs 11/24/17 11/24/17 11/24/17 19:53 20:10 20:13 Temperature 100.3 F H 98.0 F Pulse Rate 108 H 104 H Pulse Rate [ 106 H Sitting] Respiratory 20 14 Rate Blood Pressure 78/49 O2 Sat by Pulse 89 L 95 Oximetry 11/24/17 11/24/17 21:17 22:22 Temperature 97.8 F Pulse Rate 104 H 109 H Pulse Rate [ Sitting] Respiratory 14 14 Rate Blood Pressure 120/59 117/57 O2 Sat by Pulse 93 L 93 L Oximetry - Reevaluation(s) Reevaluation #1: 11/24/17 23:40 Patient has mild improvement in symptoms with IV hydration and fever control ( Talat Polanco) EKG Findings - EKG Comments: EKG Findings:: EKG showing intrafibrillation with a rate of 101. There is a right bundle-branch block over no abnormal ST segment changes or T-wave inversions. QTC is 420. Other intervals normal. No ectopy. <Shane Hinds - Last Filed: 11/24/17 21:34> Medical Decision Making - Lab Data Result diagrams: 11/24/17 20:38 11/24/17 20:38 <Shane Hinds - Last Filed: 11/24/17 21:34> - Lab Data Result diagrams: 11/24/17 20:38 11/24/17 20:38 - Radiology Data Radiology results: report reviewed (CT abdomen pelvis negative, chest x-rays negative), image reviewed <Talat Polanco - Last Filed: 11/24/17 23:42> - Medical Decision Making 67 female the ER for evaluation of weakness palpitations, A. fib with RVR, positive febrile illness. Recent hospitalization on antibiotics for UTI. Pending C. diff at this time. Patient will be admitted for IV hydration and hemodynamic monitoring (Talat Polanco) - Lab Data Lab Results 11/24/17 11/24/17 11/24/17 Range/Units 20:38 20:38 20:38 WBC 11.6 H (3.8-10.6) k/uL RBC 4.84 (3.80-5.40) m/uL Hgb 12.7 (11.4-16.0) gm/dL Hct 40.0 (34.0-46.0) % MCV 82.6 (80.0-100.0) fL MCH 26.3 (25.0-35.0) pg MCHC 31.8 (31.0-37.0) g/dL RDW 17.3 H (11.5-15.5) % Plt Count 320 (150-450) k/uL Neutrophils % 78 % Lymphocytes % 13 % Monocytes % 5 % Eosinophils % 3 % Basophils % 0 % Neutrophils # 9.0 H (1.3-7.7) k/uL Lymphocytes # 1.5 (1.0-4.8) k/uL Monocytes # 0.6 (0-1.0) k/uL Eosinophils # 0.3 (0-0.7) k/uL Basophils # 0.0 (0-0.2) k/uL Anisocytosis Slight PT (9.0-12.0) sec INR (<1.2) APTT (22.0-30.0) sec Sodium 138 (137-145) mmol/L Potassium 4.8 (3.5-5.1) mmol/L Chloride 104 (98-107) mmol/L Carbon Dioxide 22 (22-30) mmol/L Anion Gap 12 mmol/L BUN 19 H (7-17) mg/dL Creatinine 1.12 H (0.52-1.04) mg/dL Est GFR (CKD-EPI)AfAm 59 (>60 ml/min/1.73 sqM) Est GFR (CKD-EPI)NonAf 51 (>60 ml/min/1.73 sqM) Glucose 101 H (74-99) mg/dL Plasma Lactic Acid Joshua (0.7-2.0) mmol/L Calcium 8.8 (8.4-10.2) mg/dL Total Bilirubin 0.7 (0.2-1.3) mg/dL AST 27 (14-36) U/L ALT 33 (9-52) U/L Alkaline Phosphatase 65 (38-126) U/L Total Creatine Kinase <20 L (30-135) U/L CK-MB (CK-2) 0.2 (0.0-2.4) ng/mL CK-MB (CK-2) Rel Index Troponin I <0.012 (0.000-0.034) ng/mL Total Protein 5.6 L (6.3-8.2) g/dL Albumin 3.2 L (3.5-5.0) g/dL Urine Color Urine Appearance (Clear) Urine pH (5.0-8.0) Ur Specific Greenback (1.001-1.035) Urine Protein (Negative) Urine Glucose (UA) (Negative) Urine Ketones (Negative) Urine Blood (Negative) Urine Nitrite (Negative) Urine Bilirubin (Negative) Urine Urobilinogen (<2.0) mg/dL Ur Leukocyte Esterase (Negative) Urine RBC (0-5) /hpf Urine WBC (0-5) /hpf Ur Squamous Epith Cells (0-4) /hpf Urine Bacteria (None) /hpf Hyaline Casts (0-2) /lpf Influenza Type A RNA (Not Detectd) Influenza Type B (PCR) (Not Detectd) 11/24/17 11/24/17 11/24/17 Range/Units 20:38 20:38 20:45 WBC (3.8-10.6) k/uL RBC (3.80-5.40) m/uL Hgb (11.4-16.0) gm/dL Hct (34.0-46.0) % MCV (80.0-100.0) fL MCH (25.0-35.0) pg MCHC (31.0-37.0) g/dL RDW (11.5-15.5) % Plt Count (150-450) k/uL Neutrophils % % Lymphocytes % % Monocytes % % Eosinophils % % Basophils % % Neutrophils # (1.3-7.7) k/uL Lymphocytes # (1.0-4.8) k/uL Monocytes # (0-1.0) k/uL Eosinophils # (0-0.7) k/uL Basophils # (0-0.2) k/uL Anisocytosis PT 11.1 (9.0-12.0) sec INR 1.2 H (<1.2) APTT 24.8 (22.0-30.0) sec Sodium (137-145) mmol/L Potassium (3.5-5.1) mmol/L Chloride (98-107) mmol/L Carbon Dioxide (22-30) mmol/L Anion Gap mmol/L BUN (7-17) mg/dL Creatinine (0.52-1.04) mg/dL Est GFR (CKD-EPI)AfAm (>60 ml/min/1.73 sqM) Est GFR (CKD-EPI)NonAf (>60 ml/min/1.73 sqM) Glucose (74-99) mg/dL Plasma Lactic Acid Joshua 1.5 (0.7-2.0) mmol/L Calcium (8.4-10.2) mg/dL Total Bilirubin (0.2-1.3) mg/dL AST (14-36) U/L ALT (9-52) U/L Alkaline Phosphatase (38-126) U/L Total Creatine Kinase (30-135) U/L CK-MB (CK-2) (0.0-2.4) ng/mL CK-MB (CK-2) Rel Index Troponin I (0.000-0.034) ng/mL Total Protein (6.3-8.2) g/dL Albumin (3.5-5.0) g/dL Urine Color Urine Appearance (Clear) Urine pH (5.0-8.0) Ur Specific Greenback (1.001-1.035) Urine Protein (Negative) Urine Glucose (UA) (Negative) Urine Ketones (Negative) Urine Blood (Negative) Urine Nitrite (Negative) Urine Bilirubin (Negative) Urine Urobilinogen (<2.0) mg/dL Ur Leukocyte Esterase (Negative) Urine RBC (0-5) /hpf Urine WBC (0-5) /hpf Ur Squamous Epith Cells (0-4) /hpf Urine Bacteria (None) /hpf Hyaline Casts (0-2) /lpf Influenza Type A RNA Not Detected (Not Detectd) Influenza Type B (PCR) Not Detected (Not Detectd) 11/24/17 Range/Units 23:00 WBC (3.8-10.6) k/uL RBC (3.80-5.40) m/uL Hgb (11.4-16.0) gm/dL Hct (34.0-46.0) % MCV (80.0-100.0) fL MCH (25.0-35.0) pg MCHC (31.0-37.0) g/dL RDW (11.5-15.5) % Plt Count (150-450) k/uL Neutrophils % % Lymphocytes % % Monocytes % % Eosinophils % % Basophils % % Neutrophils # (1.3-7.7) k/uL Lymphocytes # (1.0-4.8) k/uL Monocytes # (0-1.0) k/uL Eosinophils # (0-0.7) k/uL Basophils # (0-0.2) k/uL Anisocytosis PT (9.0-12.0) sec INR (<1.2) APTT (22.0-30.0) sec Sodium (137-145) mmol/L Potassium (3.5-5.1) mmol/L Chloride (98-107) mmol/L Carbon Dioxide (22-30) mmol/L Anion Gap mmol/L BUN (7-17) mg/dL Creatinine (0.52-1.04) mg/dL Est GFR (CKD-EPI)AfAm (>60 ml/min/1.73 sqM) Est GFR (CKD-EPI)NonAf (>60 ml/min/1.73 sqM) Glucose (74-99) mg/dL Plasma Lactic Acid Joshua (0.7-2.0) mmol/L Calcium (8.4-10.2) mg/dL Total Bilirubin (0.2-1.3) mg/dL AST (14-36) U/L ALT (9-52) U/L Alkaline Phosphatase (38-126) U/L Total Creatine Kinase (30-135) U/L CK-MB (CK-2) (0.0-2.4) ng/mL CK-MB (CK-2) Rel Index Troponin I (0.000-0.034) ng/mL Total Protein (6.3-8.2) g/dL Albumin (3.5-5.0) g/dL Urine Color Yellow Urine Appearance Clear (Clear) Urine pH 7.0 (5.0-8.0) Ur Specific Greenback 1.033 (1.001-1.035) Urine Protein Trace H (Negative) Urine Glucose (UA) Negative (Negative) Urine Ketones Negative (Negative) Urine Blood Negative (Negative) Urine Nitrite Negative (Negative) Urine Bilirubin Negative (Negative) Urine Urobilinogen <2.0 (<2.0) mg/dL Ur Leukocyte Esterase Moderate H (Negative) Urine RBC 5 (0-5) /hpf Urine WBC 4 (0-5) /hpf Ur Squamous Epith Cells 1 (0-4) /hpf Urine Bacteria Rare H (None) /hpf Hyaline Casts 1 (0-2) /lpf Influenza Type A RNA (Not Detectd) Influenza Type B (PCR) (Not Detectd) Disposition <Shane Hinds - Last Filed: 11/24/17 21:34> <Talat Polanco - Last Filed: 11/24/17 23:42> Clinical Impression: Hypoxia, Atrial fibrillation, Fever, Nausea, Diarrhea, Tachycardia, Atrial fibrillation with RVR Disposition: ADMITTED IP TO THIS HOSP Condition: Fair Referrals: Lolita Fraga DO [Primary Care Provider] - 1-2 days
[2017-11-24 21:05] LABS: INR 1.2 (<1.2); Partial Thromboplastin Time 24.8 sec (22.0-30.0); Prothrombin Time 11.1 sec (9.0-12.0)
--- NOTE | 2017-11-24 21:06 | XR ---
EXAMINATION: XR chest 2V DATE AND TIME: 11/24/2017 8:54 PM ORDERING PROVIDER: Shane Hinds DO CLINICAL INDICATION: Fever TECHNIQUE: PA and lateral COMPARISON: 11/12/2017 DESCRIPTION: The lungs are clear. Previously seen coarse reticular pattern throughout the lungs, consistent with c hronic interstitial lung change, is again noted. The pleural spaces are negative. The cardiac silhouette is mildly enlarged, unchanged. The mediastinal and pleural silhouettes are unr emarkable. The skeletal structures are intact without focal findings. The soft tissues are unremarkable. IMPRESSION: NO ACUTE PROCESS.
[2017-11-24] MEDS: SODIUM CHLORIDE 0.9% 500 ML IV SCH ×3 (21:08→22:43)
[2017-11-24] MEDS: SODIUM CHLORIDE 0.9% 1,000 ML IV SCH (21:08)
[2017-11-24 21:09] LABS: Albumin 3.2 g/dL (3.5-5.0); Calcium 8.8 mg/dL (8.4-10.2); Creatine Kinase <20 U/L (30-135); Potassium 4.8 mmol/L (3.5-5.1); Total Bilirubin 0.7 mg/dL (0.2-1.3); Total Protein 5.6 g/dL (6.3-8.2)
[2017-11-24 21:18] LABS: Creatine Kinase MB 0.2 ng/mL (0.0-2.4); Troponin I <0.012 ng/mL (0.000-0.034)
--- NOTE | 2017-11-24 22:17 | CT ---
EXAMINATION TYPE: CT abdomen pelvis w con DATE OF EXAM: 11/24/2017 COMPARISON: NONE HISTORY: Abd pain with diarrhea, fever CT DLP: 575 mGycm Automated exposure control for dose reduction was used. TECHNIQUE: Helical acquisition of images was performed from the lung bases through the pelvis. CONTRAST: Performed without Oral Contrast and with IV Contrast, patient injected with 80ml mL of Isovue 300. FINDINGS: Lung bases are clear of consolidation. There is no pleural effusion. There is no pericardial effusion . Heart appears enlarged. Liver and spleen appear normal. Bile ducts are not dilated. There is no sign of pancreatic mass. Ther e are clips from cholecystectomy. There are clips from right nephrectomy. Left kidneys show satisfact ory contrast opacification. There is no hydronephrosis. There probably a few nonobstructing left yasmin l calculi. These measure 2 to 3 mm. There is no retroperitoneal adenopathy. Abdominal aorta is atheromatous. There is no ascites. There i s no sign of free air. Bladder distends smoothly. I see no intestinal wall thickening. There are no d ilated loops. Fecal pattern appears normal. I do not see large bowel air-fluid levels. There is moderately severe lumbar spinal stenosis at L4-5 due to disc herniation and facet arthropath y. IMPRESSION: L4-5 MODERATELY SEVERE SPINAL STENOSIS. I DO NOT SEE A CAUSE FOR DIARRHEA AND FEVER. ATHEROSCLEROTIC VASCULAR DISEASE.
[2017-11-24 23:23] LABS: Appearance,Urine Clear (Clear); Bacteria,Urine Rare /hpf; Bilirubin,Urine Negative (Negative); Blood,Urine Negative (Negative); Color,Urine Yellow; Glucose,Urine (UA) Negative (Negative); Hyaline Casts,Urine 1 /lpf (0-2); Ketones,Urine Negative (Negative); Leukocyte Esterase,Urine Moderate (Negative); Nitrite,Urine Negative (Negative); Protein,Urine Trace (Negative); RBC,Urine 5 /hpf (0-5); Specific Gravity,Urine 1.033 (1.001-1.035); Squamous Epithelial Cell,Urine 1 /hpf (0-4); Urobilinogen,Urine <2.0 mg/dL (<2.0); WBC,Urine 4 /hpf (0-5)
[2017-11-24] MEDS ORDERED: SODIUM CHLORIDE 0.9% 1,000 ML IV STA ×2 (23:41)
[2017-11-24] MEDS ORDERED: IPRATROPIUM-ALBUTEROL 3 ML NEB INHALATION STA (23:41)
[2017-11-24] MEDS ORDERED: IBUPROFEN 800 MG TAB PO STA (23:41)
[2017-11-25] MEDS: DILTIAZEM 5 MG/1 ML (25ML VIAL) IV STA ×2 (00:06→00:08)
[2017-11-25] MEDS ORDERED: NITROGLYCERIN SL TABS 0.4 MG TAB SUBLINGUAL PRN (00:42)
[2017-11-25] MEDS ORDERED: ACETAMINOPHEN TAB 325 MG TAB PO PRN (00:44)
[2017-11-25] MEDS ORDERED: MORPHINE SULFATE 4MG/4ML SYRG IVP STA (00:59)
[2017-11-25] MEDS ORDERED: ACETAMINOPHEN IV (For NPO) 1,000 MG in EMPTY BAG 1 BAG IVPB ONE (01:38)
[2017-11-25 04:00] LABS: Creatine Kinase <20 U/L (30-135)
[2017-11-25 04:13] LABS: Creatine Kinase MB 0.3 ng/mL (0.0-2.4); Troponin I <0.012 ng/mL (0.000-0.034)
[2017-11-25 04:38] VITALS: BMI 27.1
[2017-11-25] MEDS: IPRATROPIUM-ALBUTEROL 3 ML NEB INHALATION SCH ×5 (08:05→20:33)
[2017-11-25] MEDS: SODIUM CHLORIDE 0.9% 1,000 ML IV SCH ×2 (08:23→17:17)
[2017-11-25 08:57] LABS: Creatine Kinase <20 U/L (30-135)
[2017-11-25 09:10] LABS: Creatine Kinase MB 0.5 ng/mL (0.0-2.4); Troponin I <0.012 ng/mL (0.000-0.034)
[2017-11-25] MEDS: MORPHINE ORAL SOLN 10 MG/5 ML CUP PO PRN ×2 (12:50→20:41)
--- NOTE | 2017-11-25 13:42 | P.HPIM ---
History of Present Illness H&P Date: 11/25/17 Patient is a 67-year-old female who presented to [facility] emergency room with multiple complaints of worsening tremors, palpitations, fever, abdominal pain and diarrhea. Patient was recently admitted to [facility] and received IV antibiotic for urinary tract infection she was discharged home on 11/15/2017, she did well for few days then started having above symptoms and decided to come back to emergency room. Patient has known history of coronary artery disease and history of atrial fibrillation, also history of sleep apnea on CPAP at home. Patient was evaluated in the emergency room, temperature on presentation was 100.3 white blood count was mildly elevated at 11.6 BUN and creatinine were slightly elevated and there was moderate leukocyte esterase in the urine influenza A and B testing were negative, EKG revealed evidence of atrial fibrillation heart rate 101 chest x-ray did not reveal any acute abnormality computed tomography scan of the abdomen and pelvis did not reveal significant abnormality, patient was admitted to telemetry floor for further evaluation and treatment. Past Medical History Past Medical History: Atrial Fibrillation, Coronary Artery Disease (CAD), Cancer , COPD, CVA/TIA, GERD/Reflux, Hyperlipidemia, Memory Impairment, Myocardial Infarction ([place]), Osteoarthritis (OA), Sleep Apnea/CPAP/BIPAP, Thyroid Disorder, Vascular Disorder Additional Past Medical History / Comment(s): 11/28/14 Pt presented to floor s/p PTCA with stenting by Dr. Bernal today. Other HX: VASCULAR DEMENTIA. NO CPAP/ BIPAP. Hypothyroidism, RESTLESS LEG, right internal carotid artery completely occluded. 50-69% stenosis in the left internal carotid artery done, hx kidney cancer, uses O2 PRN, diverticulosis, IBS, PVD, cdiff 2013 Last Myocardial Infarction Date:: 11/03/14 History of Any Multi-Drug Resistant Organisms: None Reported Date of last positivie culture/infection: None Past Surgical History: Cholecystectomy, Ear Surgery, Heart Catheterization With Stent, Hysterectomy, Orthopedic Surgery Additional Past Surgical History / Comment(s): 11/28/14 PTCA with stent, left CAROTID ENDARTERECTOMY. RIGHT NEPHRECTOMY. BILATERAL STENTS IN LOWER EXTREMITIES , L elbow surgery, R ear surgery for blockage. 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 Pt lives with anam who is also her legal guardian. Uses cane at home and a walker on occasion, home O2 prn-pt rarely need to use. Has generally stopped tobacco use over the last several years but does occasionally smoke. Lives with a daughter who is an active smoker. Patient has a history of alcohol use in her youth no recent alcohol or recreational drug use. No experience. No international travel. No Animal exposures at this time Smoking Status: Former smoker Past Alcohol Use History: None Reported Past Drug Use History: None Reported - Past Family History Mother Family Medical History: COPD Additional Family Medical History / Comment(s): Mother is . She from respiratory failure. Father Family Medical History: Coronary Artery Disease (CAD), Myocardial Infarction ([place] ) Additional Family Medical History / Comment(s): Father had gout Medications and Allergies Home Medications Medication Instructions Recorded Confirmed Type PARoxetine HCL 30 mg PO HS 07/02/14 11/24/17 History OXcarbazepine [Trileptal] 150 mg PO HS 11/04/14 11/24/17 History Melatonin 3 mg PO HS 03/05/16 11/24/17 History Metoprolol Tartrate [Lopressor] 25 mg PO BID 03/05/16 11/24/17 History PARoxetine HCL [Paxil] 30 mg PO DAILY 03/05/16 11/24/17 History Atorvastatin Calcium [Lipitor] 20 mg PO DAILY 06/13/17 11/24/17 History Calcium Polycarbophil [Fibercon] 1,250 mg PO DAILY 06/13/17 11/24/17 History Clopidogrel Bisulfate [Plavix] 75 mg PO DAILY 06/13/17 11/24/17 History Ferrous Sulfate [Iron (65 MG 325 mg PO DAILY 06/13/17 11/24/17 History Elemental)] Furosemide [Lasix] 40 mg PO DAILY 06/13/17 11/24/17 History Levothyroxine Sodium [Synthroid] 100 mcg PO DAILY 06/13/17 11/24/17 History Lurasidone HCl [Latuda] 20 mg PO DAILY 06/13/17 11/24/17 History Magnesium Oxide [Mag-Ox] 400 mg PO DAILY 06/13/17 11/24/17 History Montelukast [Singulair] 10 mg PO HS 06/13/17 11/24/17 History Pantoprazole Sodium [Protonix] 40 mg PO DAILY 06/13/17 11/24/17 History Potassium Chloride [Klor-Con 10] 10 meq PO DAILY 06/13/17 11/24/17 History Fluticasone/Vilanterol [Breo 1 puff INHALATION RT-DAILY 06/14/17 11/24/17 History Ellipta 100-25 Mcg Inhaler] Tiotropium [place] [Spiriva] 1 cap INHALATION RT-DAILY 06/14/17 11/24/17 History Rivaroxaban [Xarelto] 15 mg PO W/SUPPER #30 tab 06/16/17 11/24/17 Rx Moxifloxacin HCl 400 mg PO DAILY #14 tab 11/15/17 11/24/17 Rx Multivitamins, Thera [Multivitamin 1 each PO DAILY@1200 #30 tab 11/15/17 Rx (formulary)] predniSONE 0 mg PO DIRECTED #12 tab 11/15/17 11/24/17 Rx Allergies Allergy/AdvReac Type Severity Reaction Status Date / Time latex Allergy Rash/Hives Verified 11/24/17 20:05 Penicillins Allergy Unknown Verified 11/24/17 20:05 Childhood Physical Exam Vitals: Vital Signs Temp Pulse Pulse Pulse Resp BP BP 11/25/17 11:41 75 11/25/17 11:10 97.3 F L 75 16 94/69 11/25/17 08:05 11/25/17 08:00 97.0 F L 98 16 104/70 11/25/17 04:00 97.7 F 82 18 100/57 11/25/17 03:34 98 F 80 12 100/55 11/25/17 03:00 98.4 F 100 12 100/55 11/25/17 02:28 97.7 F 82 18 11/25/17 02:17 79 14 96/60 11/25/17 01:34 98.0 F 68 16 96/60 11/25/17 00:39 88 18 114/62 11/24/17 23:51 98.0 F 83 14 114/80 11/24/17 22:22 97.8 F 109 H 14 117/57 11/24/17 21:17 104 H 14 120/59 11/24/17 20:13 106 H 11/24/17 20:10 98.0 F 104 H 14 11/24/17 19:53 100.3 F H 108 H 20 78/49 Pulse Ox 11/25/17 11:41 11/25/17 11:10 97 11/25/17 08:05 97 11/25/17 08:00 97 11/25/17 04:00 95 11/25/17 03:34 94 L 11/25/17 03:00 93 L 11/25/17 02:28 95 11/25/17 02:17 92 L 11/25/17 01:34 111 H 11/25/17 00:39 97 11/24/17 23:51 92 L 11/24/17 22:22 93 L 11/24/17 21:17 93 L 11/24/17 20:13 11/24/17 20:10 95 11/24/17 19:53 89 L Intake and Output 11/24/17 11/25/17 11/25/17 22:59 06:59 14:59 Intake Total 1200 480 Balance 1200 480 Intake: Intake, IV Titration 1200 Amount ACETAMINOPHEN IV (For NPO 400 ) 1,000 mg In Empty Bag 1 bag @ 400 mls/hr IVPB ONCE ONE Rx#:[id number] Sodium Chloride 0.9% 1, 800 000 ml @ 100 mls/hr IV . Q10H STA Rx#:[id number] Oral 480 Other: Voiding Method Toilet Weight 70.76 kg 71.6 kg In general patient is alert and oriented 3 in no apparent distress HEENT head normocephalic and atraumatic Neck is supple no JVD no goiter no lymphadenopathy Chest exam reveals a few scattered crackles no wheezing Cardiac exam reveals irregular heart beat with slight tachycardia no gallops no murmurs Abdomen is soft with diffuse tenderness mostly in the left upper and left lower quadrant no organomegaly no palpable masses Extremity exam reveals no edema no cyanosis or clubbing Neurological examination reveals mild tremor otherwise no focal deficit Results CBC & Chem 7: 11/24/17 20:38 11/24/17 20:38 Labs: Abnormal Lab Results - Last 24 Hours (Table) 11/24/17 11/24/17 11/24/17 Range/Units 20:38 20:38 20:38 WBC 11.6 H (3.8-10.6) k/uL RDW 17.3 H (11.5-15.5) % Neutrophils # 9.0 H (1.3-7.7) k/uL INR (<1.2) BUN 19 H (7-17) mg/dL Creatinine 1.12 H (0.52-1.04) mg/dL Glucose 101 H (74-99) mg/dL Total Creatine Kinase <20 L (30-135) U/L Total Protein 5.6 L (6.3-8.2) g/dL Albumin 3.2 L (3.5-5.0) g/dL Urine Protein (Negative) Ur Leukocyte Esterase (Negative) Urine Bacteria (None) /hpf 11/24/17 11/24/17 11/25/17 Range/Units 20:38 23:00 03:10 WBC (3.8-10.6) k/uL RDW (11.5-15.5) % Neutrophils # (1.3-7.7) k/uL INR 1.2 H (<1.2) BUN (7-17) mg/dL Creatinine (0.52-1.04) mg/dL Glucose (74-99) mg/dL Total Creatine Kinase <20 L (30-135) U/L Total Protein (6.3-8.2) g/dL Albumin (3.5-5.0) g/dL Urine Protein Trace H (Negative) Ur Leukocyte Esterase Moderate H (Negative) Urine Bacteria Rare H (None) /hpf 11/25/17 Range/Units 08:09 WBC (3.8-10.6) k/uL RDW (11.5-15.5) % Neutrophils # (1.3-7.7) k/uL INR (<1.2) BUN (7-17) mg/dL Creatinine (0.52-1.04) mg/dL Glucose (74-99) mg/dL Total Creatine Kinase <20 L (30-135) U/L Total Protein (6.3-8.2) g/dL Albumin (3.5-5.0) g/dL Urine Protein (Negative) Ur Leukocyte Esterase (Negative) Urine Bacteria (None) /hpf Microbiology - Last 24 Hours (Table) 11/24/17 23:00 Urine Culture - Preliminary Urine,Voided Thrombosis Risk Factor Assmnt - Choose All That Apply Any of the Below Risk Factors Present?: Yes Each Factor Represents 1 point: Obesity (BMI >25) Other Risk Factors: Yes Each Risk Factor Represents 2 Points: Age 61-74 years Other congenital or acquired thrombophilia - If yes, enter type in comment: No Thrombosis Risk Factor Assessment Total Risk Factor Score: 3 Thrombosis Risk Factor Assessment Level: Moderate Risk Assessment and Plan Plan: #1 febrile illness with worsening tremors there is evidence of UTI with positive leukocyte esterase however at this time with abdominal pain and diarrhea other concern is about stability of Clostridium difficile colitis so we will was hold any antibiotic at this time and check stools for C. diff will monitor temperature and white blood count closely will check urine culture. 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 diff Will resume home medication await cardiology input Will follow in a.m.
[2017-11-25] MEDS: CLOPIDOGREL 75 MG TAB PO SCH (14:02)
--- NOTE | 2017-11-25 15:03 | CDI ---
Last Revision, July 2017 Documentation Clarification Form Date: November From: Marycruz Bray Admit Date: 11/25/2017 12:42:00 AM Patient Name: Kathy Mckeon Visit Number: [id number] ATTENTION: The Clinical Documentation Specialists (CDI) and [facility] Coding Staff appreciate your assistance in clarifying documentation. Please respond to the clarification below the line at the bottom and electronically sign. The CDI & [facility] Coding staff will review the response and follow-up if needed. Please note: Queries are made part of the Legal Health Record. If you have any questions, please contact the author of this message via ITS. Dr. Abelardo Kelly, Documentation of COPD is located in the H&P. History/Risk Factors: fib, cad, cancer, copd, cva/tia, gerd, hyperlipidemia, memory impairment, mi , oa, sleep apnea, thyroid disorder, vascular disorder, vascular dementia, cath with stents Present or past smoker/PPD: Past smoker Home O2: 2L Clinical Indicators: CXR: No acute process Vital Signs on admission: T 100.3 , P 108, R 20, 78/49, 89% RA Lung and Respiratory Assessment: Lungs are clear, previously seen coarse reticular pattern through out the lungs, consistent with chronic interstitial lung hall is again noted. Treatment: Nebulizers: Nuoneb, Symbicort O2 @ 2 liters In your professional opinion, can you please clarify if the above findings and treatment signify any of the following? Acute Exacerbation of Chronic Obstructive Pulmonary Disease (COPD) Acute on Chronic Obstructive Asthma Acute on chronic bronchitis Chronic obstructive pulmonary disease with acute lower respiratory infection Emphysema Other condition, please specify unable to determine Please continue to document in your progress notes, under the line below and / or in the discharge summary in order to capture severity of illness and risk of mortality. Include clinical findings that support your diagnosis. MTDD
[2017-11-25] MEDS: RIVAROXABAN 15 MG TAB PO SCH (17:15)
[2017-11-25] MEDS: MELATONIN 3 MG TABLET PO SCH (20:27)
[2017-11-25] MEDS: METOPROLOL TARTRATE 25 MG TAB PO SCH (20:27)
[2017-11-25] MEDS: OXcarbazepine 150 MG TAB PO SCH (20:28)
[2017-11-25] MEDS: MONTELUKAST 10 MG TAB PO SCH (20:28)
[2017-11-25] MEDS: PARoxetine 10 MG TAB PO SCH (20:29)
[2017-11-25] MEDS: IPRATROPIUM 0.5 MG/2.5 ML NEBU INHALATION SCH (20:40)
[2017-11-25] MEDS: SYMBICORT 80-4.5 MCG INHALER INHALATION SCH (20:40)
[2017-11-26] MEDS: SODIUM CHLORIDE 0.9% 1,000 ML IV SCH ×3 (03:00→23:50)
[2017-11-26] MEDS: LURASIDONE 40 MG TAB PO SCH (06:17)
[2017-11-26] MEDS: PANTOPRAZOLE 40 MG TABLET PO SCH (06:18)
[2017-11-26] MEDS: LEVOTHYROXINE 100 MCG TAB PO SCH (06:18)
[2017-11-26 07:20] LABS: Anisocytosis Slight; Basophils % (A) 0 %; Eosinophils # (A) 0.1 k/uL (0-0.7); Eosinophils % (A) 1 %; HCT 40.2 % (34.0-46.0); HGB 12.4 gm/dL (11.4-16.0); Hypochromasia Slight; Lymphocytes % (A) 9 %; MCH 26.1 pg (25.0-35.0); MCHC 30.9 g/dL (31.0-37.0); MCV 84.4 fL (80.0-100.0); Mean Platelet Volume 7.1; Monocytes # (A) 0.7 k/uL (0-1.0); Monocytes % (A) 6 %; Neutrophils # (A) 9.2 k/uL (1.3-7.7); Neutrophils % (A) 82 %; Platelet Count 230 k/uL (150-450); RBC 4.76 m/uL (3.80-5.40); RDW 17.4 % (11.5-15.5); WBC 11.2 k/uL (3.8-10.6)
[2017-11-26] MEDS: CALCIUM POLYCARBOPHIL 625 MG TAB PO SCH (08:23)
[2017-11-26] MEDS: ATORVASTATIN 20 MG TAB PO SCH (08:23)
[2017-11-26] MEDS: METOPROLOL TARTRATE 25 MG TAB PO SCH ×2 (08:24→21:26)
[2017-11-26] MEDS: FUROSEMIDE 40 MG TAB PO SCH (08:24)
[2017-11-26] MEDS: MAGNESIUM OXIDE 400 MG TAB PO SCH (08:24)
[2017-11-26] MEDS: POTASSIUM CHLORIDE ER 10 MEQ TAB.ER.PRT PO SCH (08:24)
[2017-11-26] MEDS: FERROUS SULFATE 325 MG TAB PO SCH (08:24)
[2017-11-26] MEDS: CLOPIDOGREL 75 MG TAB PO SCH (08:24)
[2017-11-26 08:44] LABS: Albumin 2.7 g/dL (3.5-5.0); Calcium 8.4 mg/dL (8.4-10.2); Total Bilirubin 0.6 mg/dL (0.2-1.3); Total Protein 5.1 g/dL (6.3-8.2)
[2017-11-26 08:46] LABS: Cholesterol 96 mg/dL (<200); HDL Cholesterol 34 mg/dL (40-60); LDL Cholesterol,Calculated 51 mg/dL (0-99); Triglycerides 56 mg/dL (<150)
[2017-11-26 08:51] LABS: Potassium 5.2 mmol/L (3.5-5.1)
[2017-11-26] MEDS: SYMBICORT 80-4.5 MCG INHALER INHALATION SCH (08:59)
[2017-11-26] MEDS: IPRATROPIUM 0.5 MG/2.5 ML NEBU INHALATION SCH (09:00)
[2017-11-26] MEDS ORDERED: ASPIRIN 325 MG TAB PO SCH (09:00)
--- NOTE | 2017-11-26 09:08 | P.CRDCN ---
History of Present Illness Consult date: 11/26/17 History of present illness: This is a pleasant 67-year-old female patient with a past medical history significant for coronary artery disease and prior stenting, peripheral arterial disease and prior stenting as well, paroxysmal atrial fibrillation, hypertension, and dyslipidemia, was admitted to the hospital was febrile illness. The patient just was discharged from the hospital after she was admitted with urosepsis. She felt better for a few days then yesterday she noticed fever associated with tremor as well as diarrhea. She did not have any symptoms of chest pain or chest discomfort for. She does have a component of exertional dyspnea and it seems to be the same as before. The patient was found to be tachycardic with a heart rate of 100 bpm and she was in atrial fibrillation. She was febrile when she presented to the hospital with temperature around 100.3 Fahrenheit. She was tested for influenza A and B and that came in to be negative. Beside that she is slightly hypotensive with a blood pressure in the range of 85 mmHg. She is only on metoprolol as a blood pressure medication. The cardiac enzymes were checked and came in to be within normal limits. I am going to give the patient a bolus of 100 mL of 0.9 normal saline to improve the blood pressure. Beside that I will obtain an echocardiogram was Doppler. I will continue the current dose of metoprolol to control the heart rate. Since she was started on oral anticoagulation with Xarelto I am going to DC the aspirin and continue the Plavix. We'll continue following up with her. Past Medical History Past Medical History: Atrial Fibrillation, Coronary Artery Disease (CAD), Cancer , COPD, CVA/TIA, GERD/Reflux, Hyperlipidemia, Memory Impairment, Myocardial Infarction ([place]), Osteoarthritis ([place]), Sleep Apnea/CPAP/BIPAP, Thyroid Disorder, Vascular Disorder Additional Past Medical History / Comment(s): 11/28/14 Pt presented to floor s/p PTCA with stenting by Dr. Bernal today. Other HX: VASCULAR DEMENTIA. NO CPAP/ BIPAP. Hypothyroidism, RESTLESS LEG, right internal carotid artery completely occluded. 50-69% stenosis in the left internal carotid artery done, hx kidney cancer, uses O2 PRN, diverticulosis, IBS, PVD, cdiff 2013 Last Myocardial Infarction Date:: 11/03/14 History of Any Multi-Drug Resistant Organisms: None Reported Date of last positivie culture/infection: None Past Surgical History: Cholecystectomy, Ear Surgery, Heart Catheterization With Stent, Hysterectomy, Orthopedic Surgery Additional Past Surgical History / Comment(s): 11/28/14 PTCA with stent, left CAROTID ENDARTERECTOMY. RIGHT NEPHRECTOMY. BILATERAL STENTS IN LOWER EXTREMITIES , L elbow surgery, R ear surgery for blockage. 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 Pt lives with anam who is also her legal guardian. Uses cane at home and a walker on occasion, home O2 prn-pt rarely need to use. Has generally stopped tobacco use over the last several years but does occasionally smoke. Lives with a daughter who is an active smoker. Patient has a history of alcohol use in her youth no recent alcohol or recreational drug use. No experience. No international travel. No Animal exposures at this time Smoking Status: Former smoker Past Alcohol Use History: None Reported Past Drug Use History: None Reported - Past Family History Mother Family Medical History: COPD Additional Family Medical History / Comment(s): Mother is . She from respiratory failure. Father Family Medical History: Coronary Artery Disease (CAD), Myocardial Infarction ([place] ) Additional Family Medical History / Comment(s): Father had gout Medications and Allergies Home Medications Medication Instructions Recorded Confirmed Type PARoxetine HCL 30 mg PO HS 07/02/14 11/24/17 History OXcarbazepine [Trileptal] 150 mg PO HS 11/04/14 11/24/17 History Melatonin 3 mg PO HS 03/05/16 11/24/17 History Metoprolol Tartrate [Lopressor] 25 mg PO BID 03/05/16 11/24/17 History PARoxetine HCL [Paxil] 30 mg PO DAILY 03/05/16 11/24/17 History Atorvastatin Calcium [Lipitor] 20 mg PO DAILY 06/13/17 11/24/17 History Calcium Polycarbophil [Fibercon] 1,250 mg PO DAILY 06/13/17 11/24/17 History Clopidogrel Bisulfate [Plavix] 75 mg PO DAILY 06/13/17 11/24/17 History Ferrous Sulfate [Iron (65 MG 325 mg PO DAILY 06/13/17 11/24/17 History Elemental)] Furosemide [Lasix] 40 mg PO DAILY 06/13/17 11/24/17 History Levothyroxine Sodium [Synthroid] 100 mcg PO DAILY 06/13/17 11/24/17 History Lurasidone HCl [Latuda] 20 mg PO DAILY 06/13/17 11/24/17 History Magnesium Oxide [Mag-Ox] 400 mg PO DAILY 06/13/17 11/24/17 History Montelukast [Singulair] 10 mg PO HS 06/13/17 11/24/17 History Pantoprazole Sodium [Protonix] 40 mg PO DAILY 06/13/17 11/24/17 History Potassium Chloride [Klor-Con 10] 10 meq PO DAILY 06/13/17 11/24/17 History Fluticasone/Vilanterol [Breo 1 puff INHALATION RT-DAILY 06/14/17 11/24/17 History Ellipta 100-25 Mcg Inhaler] Tiotropium [place] [Spiriva] 1 cap INHALATION RT-DAILY 06/14/17 11/24/17 History Rivaroxaban [Xarelto] 15 mg PO W/SUPPER #30 tab 06/16/17 11/24/17 Rx Moxifloxacin HCl 400 mg PO DAILY #14 tab 11/15/17 11/24/17 Rx Multivitamins, Thera [Multivitamin 1 each PO DAILY@1200 #30 tab 11/15/17 Rx (formulary)] predniSONE 0 mg PO DIRECTED #12 tab 11/15/17 11/24/17 Rx Allergies Allergy/AdvReac Type Severity Reaction Status Date / Time latex Allergy Rash/Hives Verified 11/24/17 20:05 Penicillins Allergy Unknown Verified 11/24/17 20:05 Childhood Physical Exam Vitals: Vital Signs Temp Pulse Resp BP Pulse Ox 11/26/17 07:56 97.7 F 118 H 16 84/60 92 L 11/26/17 04:00 97.0 F L 84 18 93/59 90 L 11/25/17 23:53 93 20 11/25/17 23:51 97.2 F L 93 20 83/44 92 L 11/25/17 20:00 97.6 F 102 H 20 109/81 92 L 11/25/17 15:36 93 L 11/25/17 15:00 105 H 04/05/18 14:59 97.4 F L 105 H 16 115/62 94 L 11/25/17 11:41 75 11/25/17 11:10 97.3 F L 75 16 94/69 97 Intake and Output 11/25/17 11/26/17 11/26/17 22:59 06:59 14:59 Intake Total 925 800 Output Total 250 Balance 925 800 -250 Intake: Intake, IV Titration 800 800 Amount Sodium Chloride 0.9% 1, 800 800 000 ml @ 100 mls/hr IV . Q10H STA Rx#:[id number] Oral 125 Output: Urine 250 Other: Voiding Method Toilet Toilet # Voids 2 Weight 73.8 kg - Constitutional General appearance: no acute distress - Respiratory Respiratory: bilateral: diminished - Cardiovascular Rhythm: irregularly irregular Heart sounds: normal: S1, S2 Results 11/26/17 05:42 11/26/17 07:55 Cardiac Enzymes 11/25/17 11/26/17 Range/Units 08:09 07:55 AST 45 H (14-36) U/L CK-MB (CK-2) 0.5 (0.0-2.4) ng/mL Troponin I <0.012 (0.000-0.034) ng/mL Lipids 11/25/17 Range/Units 03:07 Triglycerides 56 (<150) mg/dL Cholesterol 96 (<200) mg/dL HDL Cholesterol 34 L (40-60) mg/dL CBC 11/26/17 Range/Units 05:42 WBC 11.2 H (3.8-10.6) k/uL RBC 4.76 (3.80-5.40) m/uL Hgb 12.4 (11.4-16.0) gm/dL Hct 40.2 (34.0-46.0) % Plt Count 230 (150-450) k/uL Comprehensive Metabolic Panel 11/26/17 Range/Units 07:55 Sodium 138 (137-145) mmol/L Potassium 5.2 H (3.5-5.1) mmol/L Chloride 109 H (98-107) mmol/L Carbon Dioxide 19 L (22-30) mmol/L BUN 13 (7-17) mg/dL Creatinine 0.90 (0.52-1.04) mg/dL Glucose 93 (74-99) mg/dL Calcium 8.4 (8.4-10.2) mg/dL AST 45 H (14-36) U/L ALT 54 H (9-52) U/L Alkaline Phosphatase 73 (38-126) U/L Total Protein 5.1 L (6.3-8.2) g/dL Albumin 2.7 L (3.5-5.0) g/dL Current Medications Generic Name Dose Route Start Last Admin Trade Name Freq PRN Reason Stop Dose Admin Acetaminophen 650 mg 11/25/17 00:44 Tylenol Tab PO Q6HR PRN Fever and/ or Pain Atorvastatin Calcium 20 mg 11/26/17 09:00 11/26/17 08:23 Lipitor PO 20 mg DAILY AAKASH Administration Budesonide/Formoterol Fumarate 2 puff 11/26/17 08:00 11/26/17 08:59 Symbicort 80-4.5 Mcg Inhaler INHALATION Not Given RT-BID AAKASH Calcium Polycarbophil 1,250 mg 11/26/17 09:00 11/26/17 08:23 Fibercon PO 1,250 mg DAILY AAKASH Administration Clopidogrel Bisulfate 75 mg 11/25/17 13:45 11/26/17 08:24 Plavix PO 75 mg DAILY AAKASH Administration Ferrous Sulfate 325 mg 11/26/17 09:00 11/26/17 08:24 Feosol PO 325 mg DAILY AAKASH Administration Furosemide 40 mg 11/26/17 09:00 11/26/17 08:24 Lasix PO 40 mg DAILY AAKASH Administration Sodium Chloride 1,000 mls @ 100 mls/hr 11/24/17 20:30 11/26/17 03:00 Saline 0.9% IV 100 mls/hr .Q10H AAKASH Administration Ipratropium [place] 0.5 mg 11/26/17 08:00 11/26/17 09:00 Atrovent Nebulized INHALATION Not Given RT-QID AAKASH Levothyroxine Sodium 100 mcg 11/26/17 06:30 11/26/17 06:18 Synthroid PO 100 mcg DAILY@0630 AAKASH Administration Lurasidone HCl 20 mg 11/26/17 07:30 11/26/17 06:17 Latuda PO 20 mg W/BRKFST AAKASH Administration Magnesium Oxide 400 mg 11/26/17 09:00 11/26/17 08:24 Mag-Ox PO 400 mg DAILY AAKASH Administration Melatonin 3 mg 11/25/17 21:00 11/25/17 20:27 Melatonin PO 3 mg HS AAKASH Administration Metoprolol Tartrate 25 mg 11/25/17 21:00 11/26/17 08:24 Lopressor PO 25 mg BID AAKASH Administration Miscellaneous Information 1 each 11/24/17 20:17 Rx Info: Iv Contrast Was Given MISCELLANE 11/26/17 20:17 DAILY PRN Per Protocol Montelukast Sodium 10 mg 11/25/17 21:00 11/25/17 20:28 Singulair PO 10 mg HS AAKASH Administration Morphine Sulfate 12 mg 11/25/17 00:59 11/25/17 20:41 Morphine Oral Krista 2mg/Ml PO 12 mg Q4HR PRN Administration severe Pain Multivitamins 1 each 11/26/17 12:00 Theragran PO DAILY@1200 AAKASH Nitroglycerin 0.4 mg 11/25/17 00:42 Nitrostat SUBLINGUAL Q5M PRN Chest Pain Oxcarbazepine 150 mg 11/25/17 21:00 11/25/17 20:28 Trileptal PO 150 mg HS AAKASH Administration Pantoprazole Sodium 40 mg 11/26/17 07:30 11/26/17 06:18 Protonix PO 40 mg AC-BRKFST AAKASH Administration Paroxetine HCl 30 mg 11/25/17 21:00 11/25/17 20:29 Paxil PO 30 mg HS AAKASH Administration Paroxetine HCl 30 mg 11/26/17 09:00 Paxil PO DAILY AAKASH Potassium Chloride 10 meq 11/26/17 09:00 11/26/17 08:24 K-Dur 10 PO 10 meq DAILY AAKASH Administration Rivaroxaban 15 mg 11/25/17 17:30 11/25/17 17:15 Xarelto PO 15 mg W/SUPPER AAKASH Administration Intake and Output 11/25/17 11/26/17 11/26/17 22:59 06:59 14:59 Intake Total 925 800 Output Total 250 Balance 925 800 -250 Intake: Intake, IV Titration 800 800 Amount Sodium Chloride 0.9% 1, 800 800 000 ml @ 100 mls/hr IV . Q10H STA Rx#:[id number] Oral 125 Output: Urine 250 Other: Voiding Method Toilet Toilet # Voids 2 Weight 73.8 kg 11/26/17 05:42 11/26/17 07:55 Assessment and Plan Assessment: Assessment #1 febrile illness with diarrhea and possible UTI #2 atrial fibrillation with slightly uncontrolled heart rate #3 hypotension #4 coronary artery disease #5 peripheral arterial disease #6 underlying history of COPD #7 multiple comorbid conditions Plan #1 I would give the patient a bolus of 0.9 normal saline #2 continue the current dose of metoprolol to control the heart rate #3 DC the aspirin and continue the Plavix and Xarelto #4 follow-up with the patient. Thank you for allowing us participate in her care and we will continue following up with the patient
[2017-11-26] MEDS ORDERED: SODIUM CHLORIDE 0.9% 250 ML IV SCH (09:15)
[2017-11-26] MEDS: PARoxetine 10 MG TAB PO SCH ×2 (09:19→21:26)
[2017-11-26] MEDS ORDERED: RX INFO: IV CONTRAST WAS GIVEN 1 EACH MISC MISCELLANE PRN (11:34)
[2017-11-26] MEDS ORDERED: SODIUM CHLORIDE 0.9% 1,000 ML IV ONE (11:35)
[2017-11-26] MEDS: MULTIVITAMINS, THERA 1 EACH TAB PO SCH (11:39)
[2017-11-26] MEDS: IOPAMIDOL-300 CONTRAST 30 ML VIAL (ORAL USE) PO PRN ×2 (12:01→12:56)
[2017-11-26 12:07] LABS: Amylase 36 U/L (30-110); Lipase 36 U/L (23-300)
[2017-11-26] MEDS: SPIRIVA 18 MCG INHALATION SCH (12:24)
[2017-11-26] MEDS: BREO ELLIPTA INHALATION SCH (12:24)
--- NOTE | 2017-11-26 12:38 | CONS ---
CONSULTATION DATE OF SERVICE: 11/26/2017 HISTORY OF PRESENT ILLNESS: Patient is a 67-year-old female who is well known to our practice, had recently been hospitalized in [facility] for urinary tract infection and was discharged home on November 15, 2017. The patient states after being home for a few days, she started to experience chills with fever, headache. Denies any nausea or vomiting. Does complain of some abdominal pain and patient had diarrhea at home. Has not had any since being admitted. PAST MEDICAL HISTORY: Significant for A. fib, coronary artery disease, cancer, COPD, CVA, TIA, GERD, hyperlipidemia, memory impairment with dementia, myocardial infarction, osteoarthritis, sleep apnea, thyroid disorder, and vascular disorder, hypothyroidism, restless leg. Right internal carotid artery is completely occluded with 50% to 69% stenosis in the left internal carotid artery. History of kidney cancer status post nephrectomy. Patient does use oxygen at home at 2 L, diverticulosis, irritable bowel syndrome , peripheral vascular disease and C. diff in 2013. PAST SURGICAL HISTORY: Significant for cholecystectomy, ear surgery, heart catheterization with stent, hysterectomy, and orthopedic surgery. Included is also left carotid endarterectomy, right nephrectomy, bilateral stents in lower extremities, and left elbow surgery. ALLERGIES: Include PENICILLIN and LATEX. FAMILY HISTORY: Mother of respiratory failure. Father of coronary artery disease. SOCIAL HISTORY: Patient does have a history of smoking, quit smoking in 2008. No alcohol use. No illicit drug use. 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 REVIEW OF SYSTEMS: General is positive for fever and chills. HEENT: Positive for headache. Negative for dizziness or lightheadedness. Negative for any acute visual changes. No difficulty hearing. Negative for any sore throat or difficulty swallowing. RESPIRATORY: Positive for shortness of breath with a nonproductive cough. CARDIOVASCULAR: Negative for any chest pain. Does have a history of atrial fibrillation. GI: Positive for abdominal pain, diffuse. Negative for any nausea or vomiting. Significant for diarrhea prior to admission. was negative for any dysuria or hematuria. Endocrine is negative for diabetes mellitus. Does have thyroid disease. Musculoskeletal is positive for knee and ankle pain. Positive for arthritis. Neurologic is positive for history of CVAs, TIAs , and vascular dementia. PSYCHIATRIC: Positive for bipolar. Home medications which include paroxetine 30 mg p.o. q.h.s., Trileptal 150 mg p.o. q.h.s., melatonin 3 mg p.o. q.h.s., Lopressor 25 mg p.o. b.i.d., Lipitor 20 mg p.o. daily, FiberCon 1250 mg p.o. daily, Plavix 75 mg p.o. daily, iron 65 mg p.o. daily, Lasix 40 mg p.o. daily, levothyroxine 100 mcg p.o. daily and Latuda 20 mg p.o. daily. PHYSICAL EXAM: Vital signs, temp 99.2, heart rate is 90, respiratory rate is 16, blood pressure is 92/58, O2 saturation 91% on 3 L O2 via nasal cannula. HEENT: Head is normocephalic, atraumatic. Pupils equal, round, react to light. Ears, nose no discharge is noted. Mouth with moist mucous membranes. Unable to visualize back of the patient's throat. Neck is supple. Trachea is midline. Lungs essentially clear. No rales or wheezes. Heart S1, S2 heard. Not tachycardic, irregular. Abdomen is soft, tender to palpation. Bowel sounds are hypo. Extremities with no edema. Neurologic, patient is awake and alert. Poor historian. LABS: White count is 11.2, hemoglobin is 12.4, hematocrit is 40.2 with 230,000 platelets. Sodium is 138, potassium is 5.2, chloride is 109, CO2 is 19, anion gap is 10, BUN is 13, creatinine 0.90, glucose is 93, calcium is 8.4, total bilirubin 0.6, AST is 45, ALT is 54, alkaline phosphatase is 73, total protein 5.1, albumin is 2.7. IMAGING: No new imaging to review. IMPRESSION: 1. Acute abdominal pain, unknown etiology. 2. Diarrhea, rule out Clostridium difficile colitis. 3. Atrial fibrillation. 4. 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 5. Recent admission for urinary tract infection. 6. Chronic obstructive pulmonary disease, stable at this time. 7. Coronary artery disease. PLAN: Continue current medications which have been reviewed. Will check an ultrasound of the right upper quadrant. Order amylase and lipase. Check a CT of the abdomen and pelvis with oral contrast. GI and DVT prophylaxis. A bolus of normal saline 1000 mL x1 now, incentive spirometry with pulmonary hygiene, bronchodilators, leukotriene inhibitors. Thank you for the consultation and will follow patient closely with you making further changes as necessary. MMODL / IJN: [id number] / [email or web address]
--- NOTE | 2017-11-26 13:27 | P.PN ---
Subjective Progress Note Date: 11/26/17 Patient is a 67-year-old female who presented to [facility] emergency room with multiple complaints of worsening tremors, palpitations, fever, abdominal pain and diarrhea. Patient was recently admitted to [facility] and received IV antibiotic for urinary tract infection she was discharged home on 11/15/2017, she did well for few days then started having above symptoms and decided to come back to emergency room. Patient has known history of coronary artery disease and history of atrial fibrillation, also history of sleep apnea on CPAP at home. Patient was evaluated in the emergency room, temperature on presentation was 100.3 white blood count was mildly elevated at 11.6 BUN and creatinine were slightly elevated and there was moderate leukocyte esterase in the urine influenza A and B testing were negative, EKG revealed evidence of atrial fibrillation heart rate 101 chest x-ray did not reveal any acute abnormality computed tomography scan of the abdomen and pelvis did not reveal significant abnormality, patient was admitted to telemetry floor for further evaluation and treatment. On 11/26/2017 Patient is alert and oriented in no apparent distress, complaining of abdominal pain, otherwise no complaints, she was having fever and diarrhea at home, she has been afebrile since admission, and there is no bowel movement or diarrhea since admission, stools for C. diff was ordered however patient was unable to provide a sample so far, patient continues to complain of abdominal pain and discomfort, ultrasound of the abdomen was ordered and consultation for gastroenterology was requested, otherwise patient denies any other complaint at this time. Objective - Vital Signs Vital signs: Vital Signs Temp 99.2 F 11/26/17 11:23 Pulse 90 11/26/17 12:00 Resp 16 11/26/17 11:23 BP 92/58 11/26/17 11:23 Pulse Ox 91 L 11/26/17 11:23 Intake & Output 11/25/17 11/26/17 11/26/17 18:59 06:59 18:59 Intake Total 605 1600 Output Total 1150 Balance 605 1600 -1150 Weight 73.8 kg Intake: Intake, IV Titration 1600 Amount Sodium Chloride 0.9% 1, 1600 000 ml @ 100 mls/hr IV . Q10H STA Rx#:[id number] Oral 605 Output: Urine 1150 Other: Voiding Method Toilet # Voids 3 2 2 - Exam In general patient is alert and oriented 3 in no apparent distress HEENT head normocephalic and atraumatic Neck is supple no JVD no goiter no lymphadenopathy Chest exam reveals a few scattered crackles no wheezing Cardiac exam reveals irregular heart beat with slight tachycardia no gallops no murmurs Abdomen is soft with diffuse tenderness mostly in the left upper and left lower quadrant no organomegaly no palpable masses Extremity exam reveals no edema no cyanosis or clubbing Neurological examination reveals mild tremor otherwise no focal deficit - Labs CBC & Chem 7: 11/26/17 05:42 11/26/17 07:55 Labs: Abnormal Lab Results - Last 24 Hours (Table) 11/25/17 11/26/17 11/26/17 Range/Units 03:07 05:42 07:55 WBC 11.2 H (3.8-10.6) k/uL MCHC 30.9 L (31.0-37.0) g/dL RDW 17.4 H (11.5-15.5) % Neutrophils # 9.2 H (1.3-7.7) k/uL Potassium 5.2 H (3.5-5.1) mmol/L Chloride 109 H (98-107) mmol/L Carbon Dioxide 19 L (22-30) mmol/L AST 45 H (14-36) U/L ALT 54 H (9-52) U/L Total Protein 5.1 L (6.3-8.2) g/dL Albumin 2.7 L (3.5-5.0) g/dL HDL Cholesterol 34 L (40-60) mg/dL Microbiology - Last 24 Hours (Table) 11/24/17 20:38 Blood Culture - Preliminary Blood No Growth after 24 hours 11/24/17 23:00 Urine Culture - Preliminary Urine,Voided Assessment and Plan Plan: #1 febrile illness with worsening tremors there is evidence of UTI with positive leukocyte esterase however at this time with abdominal pain and diarrhea other concern is about stability of Clostridium difficile colitis so we will was hold any antibiotic at this time and check stools for C. diff will monitor temperature and white blood count closely will check urine culture. 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 diff Will resume home medication await cardiology input, gastroenterology consult requested and abdomen ultrasound ordered awaiting results Will follow in a.m.
--- NOTE | 2017-11-26 14:20 | CT ---
EXAMINATION TYPE: CT abdomen pelvis w con DATE OF EXAM: 11/26/2017 COMPARISON: 11/24/2017 HISTORY: 67-year-old female with upper abdominal pain. Prior right nephrectomy. TECHNIQUE: Contiguous axial scanning of the abdomen and pelvis following administration of 100 ml Omn ipaque 300 IV contrast. Delayed images through the kidneys and coronal/sagittal reconstructions perf ormed. CT DLP: 1555 mGycm Automated exposure control for dose reduction was used. FINDINGS: Heart is upper limits of normal in size without pericardial effusion. Tiny hiatal hernia. There are new small right and trace left effusions with some hazy bibasilar densities and peripheral left basilar atelectasis. Reflux of contrast into the hepatic veins. Trace perihepatic ascites. No focal liver lesion seen. Liver mildly enlarged at 17.7 cm craniocaudal. Portal venous system appea rs patent. Some periportal edema is present. Mild generalized mesenteric edema appears new with stran ding especially along the inferior aspect of the right liver lobe. Multiple surgical clips status post right nephrectomy and cholecystectomy. The right renal fossa appe ars clear. Adrenal glands, left kidney, spleen, and pancreas appear within normal limits. Moderate apical scarring calcifications throughout the abdominal aorta with severe calcifications in the iliac arteries. No dilated small bowel, free fluid, or free air. Normal appendix. Moderate stool burden. Redundant sigmoid colon. Bladder is urine distended. Surgical clips along the right side of the pelvis. Small pelvic free flui d. Uterus surgically absent. Ovaries are visualized. No pelvic lymphadenopathy seen. Bones: Degenerative changes mid to lower lumbar spine. No osseous destructive process. IMPRESSION: 1. NEW MILD DIFFUSE ANASARCA, SMALL RIGHT AND TRACE LEFT EFFUSIONS, REFLUX OF CONTRAST INTO THE HEPAT IC VEINS, AND MILD ABDOMINOPELVIC ASCITES FLUID. CORRELATE FOR FLUID OVERLOAD STATE. 2. MILD HEPATOMEGALY (17.7 CM) WITH PERIPORTAL EDEMA, EDEMATOUS CHANGE IN THE PORTAHEPATIS, AND ADDIT IONAL FAT STRANDING ALONG THE INFERIOR ASPECT OF THE LIVER. SOME OF THESE FINDINGS MAY SIMPLY RELATE TO FLUID OVERLOAD STATE. CORRELATE TO EXCLUDE THE POSSIBILITY OF HEPATITIS. 3. STATUS POST RIGHT NEPHRECTOMY.
--- NOTE | 2017-11-26 15:23 | CONS ---
CONSULTATION DATE OF DICTATION: 11/26/2017 REASON FOR CONSULTATION: Abdominal pain and diarrhea. HISTORY OF PRESENT ILLNESS: The patient is a 67-year-old pleasant white female who came into the emergency room complaining of abdominal discomfort and diarrhea that started about a week ago. She states that most of the pain was in the upper abdominal area radiating to the lower abdominal area, mostly concentrated in the right upper quadrant area, and had several episodes of diarrhea. She had about 4-5 loose watery bowel movements daily. Denies any blood or mucus in the stool. The patient was recently admitted to [facility] with UTI and received IV antibiotics and was discharged home on November 15. This morning she states that the pain is a little bit better. She denies any nausea, vomiting. The diarrhea has completely stopped; in fact, she is constipated since yesterday. She denies any recent NSAID use. No prior history of peptic ulcer disease. She recalls having a colonoscopy a couple of years ago which was unremarkable other than small polyps. PAST MEDICAL HISTORY: 1. Atrial fibrillation, on Xarelto. 2. Coronary artery disease. 3. Congestive heart failure. 4. CVA, TIA. 5. GERD. 6. Hyperlipidemia. 7. Hypertension. 8. Osteoarthritis. 9. Sleep apnea. 10.Hypothyroidism. PAST SURGICAL HISTORY: 1. Cardiac catheterization. 2. Ear surgery. 3. Cholecystectomy. 4. Hysterectomy. 5. Carotid endarterectomy. 6. Nephrectomy. 7. Lower extremity stenting for peripheral vascular disease. 8. Left elbow surgery. SOCIAL HISTORY: Heavy alcohol use in the past. Former smoker. FAMILY HISTORY: Mother is diseased. Father with NV and coronary artery disease. MEDICATIONS AT HOME: 1. Paroxetine. 2. Trileptal. 3. Melatonin. 4. Lopressor. 5. Paxil. 6. Lipitor. 7. FiberCon. 8. Plavix. 9. Iron sulfate. 10.Lasix. 11.Synthroid. 12.Latuda. 13.Protonix. 14.Singulair. 15.Magnesium oxide. 16.Spiriva. 17.Xarelto. 18.Multivitamin. 19.Prednisone taper dose. ALLERGIES: PENICILLIN and LATEX. REVIEW OF SYSTEMS: CARDIOPULMONARY: No chest pain or shortness of breath. GENITOURINARY: No dysuria or hematuria. MUSCULOSKELETAL: Chronic back pain. NEUROLOGY: Unremarkable. PSYCHIATRY: History of anxiety, depression. ENT/VISION: Unremarkable. CONSTITUTIONAL: No recent weight loss. No fever, chills, night sweats. GI: As mentioned above. HEMATOLOGY: Unremarkable. PHYSICAL EXAMINATION: She appears comfortable; no apparent distress. Vital signs are stable. Blood pressure is 84/60, pulse rate 118, temperature 97.7. HEENT EXAMINATION: Unremarkable. Conjunctivae pink. Sclerae anicteric. Oral cavity no lesions. NECK: No JVD or lymph node enlargement. Chest was clear to auscultation. HEART: Regular rate and rhythm. Abdomen was slightly distended. There was mild diffuse tenderness throughout the abdomen, more predominant in the right upper quadrant area. No rebound or rigidity. EXTREMITIES: No pedal edema. SKIN: No rashes. NEURO: She is alert and oriented x3. No focal deficits. ADMISSION LABS: Labs done at the time of admission to the hospital: WBC 11.2, hemoglobin 12.4, platelets 230. Sodium 138, potassium 5.2, chloride 109, CO2 19. BUN and creatinine are normal. ALT and AST are 45 and 54, respectively. Amylase and lipase are normal. Urinalysis showed moderate leukocyte esterase. CT of the abdomen and pelvis done in the emergency room at the time of admission to the hospital on November 24 showed some spinal stenosis and peripheral vascular disease. Because of the persistent abdominal pain, she had a repeat CT of the abdomen and pelvis done this afternoon which showed mild diffuse anasarca, mild ascites, mild hepatomegaly and status post right nephrectomy. IMPRESSION: The patient was admitted to the hospital with diffuse abdominal pain, mostly in the right upper quadrant area, for the last one week's duration associated with diarrhea that since has resolved. Now she feels constipated. She had 2 CT scans of the abdomen and pelvis done on the day of admission to the hospital on November 24 and a repeat one this morning, both of which did not show significant abnormalities. The CT scan from this morning showed mild hepatomegaly and mild ascites and generalized anasarca. The serum transaminases are minimally elevated, which makes it unlikely we are dealing with any hepatobiliary pathology. Given the recent antibiotic use and pain more in the right- sided abdomen and acute onset of diarrhea, the possibility of C difficile colitis involving the right colon needs to be considered. I doubt ischemic colitis/mesenteric ischemia, given the clinical presentation. RECOMMENDATIONS: 1. Will obtain stool for C difficile toxin. 2. Start her on clear liquid diet. 3. I agree with IV Protonix. 4. Repeat labs in the morning. Will follow the patient closely during her hospital stay. If her abdominal pain gets worse, will consider surgical consultation. For now we will continue with a conservative approach and follow her closely. Thank you for this consultation. MMODL / IJN: [id number] /
--- NOTE | 2017-11-26 15:32 | US ---
EXAMINATION TYPE: US abdomen limited DATE OF EXAM: 11/26/2017 COMPARISON: NONE CLINICAL HISTORY: RUQ abdominal pain, elevated AST/ALT. RUQ pain, elevated ALT and AST. Cholecystecto my. Right nephrectomy EXAM MEASUREMENTS: Liver Length: 16.4 cm Gallbladder Wall: Surgically absent CBD: 0.5 cm Right Kidney: surgically absent Pancreas: The pancreas appears unremarkable. Tail of pancreas obscured by bowel gas. Liver: slightly heterogenous Gallbladder: Surgically absent Evidence for sonographic Johnson's sign: no CBD: wnl Right Kidney: surgically absent IMPRESSION: 1. Right upper quadrant ultrasound unremarkable.
--- NOTE | 2017-11-26 15:43 | US ---
EXAMINATION TYPE: US venous doppler duplex LE BI DATE OF EXAM: 11/26/2017 3:34 PM COMPARISON: NONE CLINICAL HISTORY: calf pain. no h/o dvt, pain SIDE PERFORMED: Bilateral TECHNIQUE: The lower extremity deep venous system is examined utilizing real time linear array sonog андрей with graded compression, doppler sonography and color-flow sonography. VESSELS IMAGED: External Iliac Vein (EIV) Common Femoral Vein Deep Femoral Vein Greater Saphenous Vein * Femoral Vein Popliteal Vein Small Saphenous Vein * Proximal Calf Veins (* superficial vessels) Right Leg: Appears negative for DVT Left Leg: Appears negative for DVT IMPRESSION: 1. Lower extremity venous ultrasound is negative for deep venous thrombosis bilateral lower extremiti es.
[2017-11-26] MEDS: RIVAROXABAN 15 MG TAB PO SCH (17:04)
[2017-11-26] MEDS: MONTELUKAST 10 MG TAB PO SCH (21:26)
[2017-11-26] MEDS: MELATONIN 3 MG TABLET PO SCH (21:26)
[2017-11-26] MEDS: OXcarbazepine 150 MG TAB PO SCH (21:26)
[2017-11-27 06:02] LABS: Anisocytosis Slight; Basophils % (A) 0 %; Eosinophils # (A) 0.2 k/uL (0-0.7); Eosinophils % (A) 2 %; HGB 10.9 gm/dL (11.4-16.0); Hypochromasia Moderate; Lymphocytes # (A) 1.3 k/uL (1.0-4.8); Lymphocytes % (A) 17 %; MCH 25.6 pg (25.0-35.0); MCHC 30.2 g/dL (31.0-37.0); MCV 84.9 fL (80.0-100.0); Mean Platelet Volume 7.3; Monocytes # (A) 0.5 k/uL (0-1.0); Monocytes % (A) 7 %; Neutrophils # (A) 5.7 k/uL (1.3-7.7); Neutrophils % (A) 73 %; Platelet Count 233 k/uL (150-450); RBC 4.24 m/uL (3.80-5.40); RDW 17.5 % (11.5-15.5); WBC 7.8 k/uL (3.8-10.6)
[2017-11-27 06:15] LABS: Albumin 2.6 g/dL (3.5-5.0); Calcium 8.7 mg/dL (8.4-10.2); Potassium 4.5 mmol/L (3.5-5.1); Total Bilirubin 0.3 mg/dL (0.2-1.3); Total Protein 4.8 g/dL (6.3-8.2)
[2017-11-27] MEDS: PANTOPRAZOLE 40 MG TABLET PO SCH (06:27)
[2017-11-27] MEDS: LURASIDONE 40 MG TAB PO SCH (06:27)
[2017-11-27] MEDS: LEVOTHYROXINE 100 MCG TAB PO SCH (06:27)
[2017-11-27] MEDS: SPIRIVA 18 MCG INHALATION SCH (07:54)
[2017-11-27] MEDS: BREO ELLIPTA INHALATION SCH (07:54)
[2017-11-27] MEDS: FERROUS SULFATE 325 MG TAB PO SCH (08:23)
[2017-11-27] MEDS: ATORVASTATIN 20 MG TAB PO SCH (08:23)
[2017-11-27] MEDS: CALCIUM POLYCARBOPHIL 625 MG TAB PO SCH (08:23)
[2017-11-27] MEDS: CLOPIDOGREL 75 MG TAB PO SCH (08:23)
[2017-11-27] MEDS: MAGNESIUM OXIDE 400 MG TAB PO SCH (08:24)
[2017-11-27] MEDS: METOPROLOL TARTRATE 25 MG TAB PO SCH (08:24)
[2017-11-27] MEDS: FUROSEMIDE 40 MG TAB PO SCH (08:24)
[2017-11-27] MEDS: PARoxetine 10 MG TAB PO SCH ×2 (08:25→20:25)
[2017-11-27] MEDS: POTASSIUM CHLORIDE ER 10 MEQ TAB.ER.PRT PO SCH (08:25)
--- NOTE | 2017-11-27 09:43 | P.PN ---
Subjective Progress Note Date: 11/27/17 Principal diagnosis: Atrial fibrillation This is a pleasant 67-year-old female patient with a past medical history significant for coronary artery disease and prior stenting, peripheral arterial disease and prior stenting as well, paroxysmal atrial fibrillation, hypertension, and dyslipidemia, was admitted to the hospital was febrile illness. The patient just was discharged from the hospital after she was admitted with urosepsis. She felt better for a few days then yesterday she noticed fever associated with tremor as well as diarrhea. She did not have any symptoms of chest pain or chest discomfort for. She does have a component of exertional dyspnea and it seems to be the same as before. The patient was found to be tachycardic with a heart rate of 100 bpm and she was in atrial fibrillation. She was febrile when she presented to the hospital with temperature around 100.3 Fahrenheit. She was tested for influenza A and B and that came in to be negative. Beside that she is slightly hypotensive with a blood pressure in the range of 85 mmHg. She is only on metoprolol as a blood pressure medication. The cardiac enzymes were checked and came in to be within normal limits. On follow-up with the patient today, she is feeling better indeterminable shortness of breath. She continues to be in atrial fibrillation with heart rate around 100 beats per minutes. I would increase the dose of metoprolol to 50 mg by mouth twice a day. We'll continue monitor the heart rate probably for additional 24 hours. She continues to be on oral anticoagulation along with Plavix for CAD and PAD. Objective - Vital Signs Vital signs: Vital Signs Temp 98.2 F 11/27/17 04:00 Pulse 98 11/27/17 04:00 Resp 18 11/27/17 04:00 BP 104/70 11/27/17 04:00 Pulse Ox 95 11/27/17 04:00 Intake & Output 11/26/17 11/27/17 11/27/17 18:59 06:59 18:59 Intake Total 0 Output Total 1500 300 Balance -1500 -300 Weight 75 kg Intake: Oral 0 Output: Urine 1500 300 Other: Voiding Method Bedside Commode Bedside Commode # Voids 1 2 - Constitutional General appearance: Present: no acute distress - Respiratory Respiratory: bilateral: CTA - Cardiovascular Rhythm: irregularly irregular Heart sounds: normal: S1, S2 - Labs CBC & Chem 7: 11/27/17 05:21 11/27/17 05:21 Labs: Abnormal Lab Results - Last 24 Hours (Table) 11/27/17 11/27/17 Range/Units 05:21 05:21 Hgb 10.9 L (11.4-16.0) gm/dL MCHC 30.2 L (31.0-37.0) g/dL RDW 17.5 H (11.5-15.5) % Chloride 109 H (98-107) mmol/L ALT 55 H (9-52) U/L Total Protein 4.8 L (6.3-8.2) g/dL Albumin 2.6 L (3.5-5.0) g/dL Microbiology - Last 24 Hours (Table) 11/24/17 20:38 Blood Culture - Preliminary Blood No Growth after 48 hours 11/24/17 23:00 Urine Culture - Final Urine,Voided Assessment and Plan Assessment: Assessment #1 febrile illness with diarrhea and possible UTI #2 atrial fibrillation with slightly uncontrolled heart rate #3 hypotension #4 coronary artery disease #5 peripheral arterial disease #6 underlying history of COPD #7 multiple comorbid conditions Plan #1 increase the dose of metoprolol to 50 mg by mouth twice a day #2 continue oral anticoagulation and antiplatelet #3 monitor the patient for additional 24 hours #4 follow-up with the patient
--- NOTE | 2017-11-27 11:48 | P.PN ---
Subjective Progress Note Date: 11/27/17 Patient is a 67-year-old female who presented to [facility] emergency room with multiple complaints of worsening tremors, palpitations, fever, abdominal pain and diarrhea. Patient was recently admitted to [facility] and received IV antibiotic for urinary tract infection she was discharged home on 11/15/2017, she did well for few days then started having above symptoms and decided to come back to emergency room. Patient has known history of coronary artery disease and history of atrial fibrillation, also history of sleep apnea on CPAP at home. Patient was evaluated in the emergency room, temperature on presentation was 100.3 white blood count was mildly elevated at 11.6 BUN and creatinine were slightly elevated and there was moderate leukocyte esterase in the urine influenza A and B testing were negative, EKG revealed evidence of atrial fibrillation heart rate 101 chest x-ray did not reveal any acute abnormality computed tomography scan of the abdomen and pelvis did not reveal significant abnormality, patient was admitted to telemetry floor for further evaluation and treatment. On 11/26/2017 Patient is alert and oriented in no apparent distress, complaining of abdominal pain, otherwise no complaints, she was having fever and diarrhea at home, she has been afebrile since admission, and there is no bowel movement or diarrhea since admission, stools for C. diff was ordered however patient was unable to provide a sample so far, patient continues to complain of abdominal pain and discomfort, ultrasound of the abdomen was ordered and consultation for gastroenterology was requested, otherwise patient denies any other complaint at this time. On 11/27/2017 patient is alert and oriented complaining of some abdominal discomfort otherwise denies any complaints she has not had any bowel movement since admission she denies any chest pain or shortness of breath no nausea or vomiting ultrasound of the abdomen done yesterday was unremarkable, repeat computed tomography scan of the abdomen and pelvis done yesterday reveals evidence of ascites and hepatomegaly, gastroenterology consultation are following. Objective - Vital Signs Vital signs: Vital Signs Temp 97.9 F 11/27/17 08:00 Pulse 125 H 11/27/17 08:00 Resp 18 11/27/17 08:00 BP 106/47 11/27/17 08:00 Pulse Ox 92 L 11/27/17 08:00 Intake & Output 11/26/17 11/27/17 11/27/17 18:59 06:59 18:59 Intake Total 0 Output Total 1500 300 Balance -1500 -300 Weight 75 kg Intake: Oral 0 Output: Urine 1500 300 Other: Voiding Method Bedside Commode Bedside Commode # Voids 1 2 - Exam In general patient is alert and oriented 3 in no apparent distress HEENT head normocephalic and atraumatic Neck is supple no JVD no goiter no lymphadenopathy Chest exam reveals a few scattered crackles no wheezing Cardiac exam reveals irregular heart beat with slight tachycardia no gallops no murmurs Abdomen is soft with diffuse tenderness no organomegaly no palpable masses Extremity exam reveals no edema no cyanosis or clubbing Neurological examination reveals no focal deficit - Labs CBC & Chem 7: 11/27/17 05:21 11/27/17 05:21 Labs: Abnormal Lab Results - Last 24 Hours (Table) 11/27/17 11/27/17 Range/Units 05:21 05:21 Hgb 10.9 L (11.4-16.0) gm/dL MCHC 30.2 L (31.0-37.0) g/dL RDW 17.5 H (11.5-15.5) % Chloride 109 H (98-107) mmol/L ALT 55 H (9-52) U/L Total Protein 4.8 L (6.3-8.2) g/dL Albumin 2.6 L (3.5-5.0) g/dL Microbiology - Last 24 Hours (Table) 11/24/17 20:38 Blood Culture - Preliminary Blood No Growth after 48 hours 11/24/17 23:00 Urine Culture - Final Urine,Voided Assessment and Plan Plan: #1 febrile illness with worsening tremors there is evidence of UTI with positive leukocyte esterase however at this time with abdominal pain and diarrhea other concern is about stability of Clostridium difficile colitis so we will was hold any antibiotic at this time and check stools for C. diff will monitor temperature and white blood count closely will check urine culture. #2 atrial fibrillation heart rate is slightly fast and is improving will monitor closely cardiology consult was requested, patient was seen by Dr. 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 diff Will resume home medication await cardiology input, gastroenterology consult requested and abdomen ultrasound ordered awaiting results Will follow in a.m.
--- NOTE | 2017-11-27 11:57 | PN ---
PROGRESS NOTE DATE OF DICTATION: 11/27/17 The patient is a 67-year-old pleasant white female, admitted to hospital with abdominal pain and diarrhea for the last 1 week duration. Since being in the hospital, the diarrhea has completely resolved. She was having more right upper quadrant abdominal pain and the patient states that the pain is significantly improved. She has no nausea, vomiting. On a clear liquid diet, tolerating well. She became constipated since being in the hospital and did not have any bowel movement so far. No fever, chills, or night sweats. She did have a CT of the abdomen and pelvis done yesterday that showed mild hepatomegaly and small amount of fluid on the liver. PHYSICAL EXAMINATION: Appears comfortable no apparent distress. Vital signs stable. Blood pressure 97/67, pulse 95, temperature 97.8. HEENT examination unremarkable. Conjunctivae pink. Sclerae anicteric. Oral cavity no lesions. Neck: No jugular venous distention or lymph node enlargement. Chest was clear to auscultation. HEART: Regular rate and rhythm. ABDOMEN: Soft. There was mild tenderness in the right upper quadrant area, but the rest of the abdomen was benign. Bowel sounds are positive. No organomegaly. Extremities no pedal edema. Skin no rashes. NEUROLOGIC: Alert and oriented x3. No focal deficits. LAB: From today WBC 7.8, hemoglobin 10.9, platelets are normal. Basic metabolic panel is within normal limits. IMPRESSION: Acute onset of abdominal pain with diarrhea for the last 1 week duration. Stool studies were obtained to evaluate for C diff colitis, but patient has been constipated and hence it could not be performed. In the meantime, her symptoms are gradually improving. The diarrhea has resolved. The abdominal pain is improving. CT of the abdomen as mentioned above showed hepatomegaly and fluid around the liver. The serum transaminases almost within normal limits. RECOMMENDATIONS: 1. Advance diet as tolerated. 2. If she has any bowel movements today, we will obtain stool studies. 3. We will continue with symptomatic management. 4. No need for any endoscopy intervention. 5. We will follow her closely during hospital stay. Thank you for this consultation. MMODL / IJN: [id number] /
[2017-11-27] MEDS: MORPHINE ORAL SOLN 10 MG/5 ML CUP PO PRN (12:45)
[2017-11-27] MEDS ORDERED: ALBUTEROL NEBULIZED 2.5 MG/3 ML INHALATION PRN (13:56)
--- NOTE | 2017-11-27 16:00 | PN ---
PROGRESS NOTE DATE OF SERVICE: 11/27/2017. She is hemodynamically more stable. She has some mild shortness of breath. PHYSICAL EXAMINATION: Respiratory rate is 18, pulse rate of 98, temperature 98.2, O2 saturation on 3 L by nasal cannula is 95%. HEENT reveals pupils that are equal. Chest reveals faint expiratory wheeze. Cardiovascular system reveals an S1, S2. Abdomen is soft. There is no pedal edema. White count has come down to 7.8, hemoglobin of 10.9, sodium 141, potassium 4.5, chloride 109, bicarb 23. IMPRESSION: 1. Atrial fibrillation with rapid ventricular response. 2. Febrile illness with recent urinary tract infection, possible C difficile. 3. Asthma. 4. Primary mass in the nasopharynx. 5. Obstructive sleep apnea. Continue montelukast, add budesonide and albuterol to her regimen. Watch her fluid status closely. Increase her activity level. MMODL / IJN: [id number] /
[2017-11-27] MEDS: MULTIVITAMINS, THERA 1 EACH TAB PO SCH (17:48)
[2017-11-27] MEDS: RIVAROXABAN 15 MG TAB PO SCH (17:48)
[2017-11-27] MEDS: BUDESONIDE 0.5 MG/2 ML NEBU INHALATION SCH (19:44)
[2017-11-27] MEDS: MONTELUKAST 10 MG TAB PO SCH (20:25)
[2017-11-27] MEDS: MELATONIN 3 MG TABLET PO SCH (20:25)
[2017-11-27] MEDS: METOPROLOL TARTRATE 50 MG TAB PO SCH (20:25)
[2017-11-27] MEDS: OXcarbazepine 150 MG TAB PO SCH (20:26)
[2017-11-27] MEDS: SODIUM CHLORIDE 0.9% 1,000 ML IV SCH (20:30)
[2017-11-28] MEDS: SODIUM CHLORIDE 0.9% 1,000 ML IV SCH (01:10)
[2017-11-28] MEDS: LEVOTHYROXINE 100 MCG TAB PO SCH (06:30)
[2017-11-28] MEDS: LURASIDONE 40 MG TAB PO SCH (06:31)
[2017-11-28] MEDS: PANTOPRAZOLE 40 MG TABLET PO SCH (06:31)
[2017-11-28] MEDS: BREO ELLIPTA INHALATION SCH (08:41)
[2017-11-28] MEDS: SPIRIVA 18 MCG INHALATION SCH (08:41)
[2017-11-28] MEDS: BUDESONIDE 0.5 MG/2 ML NEBU INHALATION SCH ×2 (08:42→19:31)
[2017-11-28] MEDS: ATORVASTATIN 20 MG TAB PO SCH (08:55)
[2017-11-28] MEDS: CLOPIDOGREL 75 MG TAB PO SCH (08:55)
[2017-11-28] MEDS: CALCIUM POLYCARBOPHIL 625 MG TAB PO SCH (08:55)
[2017-11-28] MEDS: FERROUS SULFATE 325 MG TAB PO SCH (08:55)
[2017-11-28] MEDS: MAGNESIUM OXIDE 400 MG TAB PO SCH (08:56)
[2017-11-28] MEDS: FUROSEMIDE 40 MG TAB PO SCH (08:56)
[2017-11-28] MEDS: METOPROLOL TARTRATE 50 MG TAB PO SCH ×3 (08:56→23:14)
[2017-11-28] MEDS: POTASSIUM CHLORIDE ER 10 MEQ TAB.ER.PRT PO SCH (08:58)
[2017-11-28] MEDS: PARoxetine 10 MG TAB PO SCH ×2 (08:58→23:10)
--- NOTE | 2017-11-28 11:04 | P.PN ---
Subjective Progress Note Date: 11/28/17 Patient is a 67-year-old female who presented to [facility] emergency room with multiple complaints of worsening tremors, palpitations, fever, abdominal pain and diarrhea. Patient was recently admitted to [facility] and received IV antibiotic for urinary tract infection she was discharged home on 11/15/2017, she did well for few days then started having above symptoms and decided to come back to emergency room. Patient has known history of coronary artery disease and history of atrial fibrillation, also history of sleep apnea on CPAP at home. Patient was evaluated in the emergency room, temperature on presentation was 100.3 white blood count was mildly elevated at 11.6 BUN and creatinine were slightly elevated and there was moderate leukocyte esterase in the urine influenza A and B testing were negative, EKG revealed evidence of atrial fibrillation heart rate 101 chest x-ray did not reveal any acute abnormality computed tomography scan of the abdomen and pelvis did not reveal significant abnormality, patient was admitted to telemetry floor for further evaluation and treatment. On 11/26/2017 Patient is alert and oriented in no apparent distress, complaining of abdominal pain, otherwise no complaints, she was having fever and diarrhea at home, she has been afebrile since admission, and there is no bowel movement or diarrhea since admission, stools for C. diff was ordered however patient was unable to provide a sample so far, patient continues to complain of abdominal pain and discomfort, ultrasound of the abdomen was ordered and consultation for gastroenterology was requested, otherwise patient denies any other complaint at this time. On 11/27/2017 patient is alert and oriented complaining of some abdominal discomfort otherwise denies any complaints she has not had any bowel movement since admission she denies any chest pain or shortness of breath no nausea or vomiting ultrasound of the abdomen done yesterday was unremarkable, repeat computed tomography scan of the abdomen and pelvis done yesterday reveals evidence of ascites and hepatomegaly, gastroenterology consultation are following. On 11/28/2017 patient is alert and oriented 3 still having some abdominal discomfort mostly in the right lower quadrant, she has not had any bowel movement since admission, otherwise she denies any complaints there is no fever or chills no headache no dizziness no chest pain or shortness of breath no cough no nausea or vomiting or diarrhea and no urinary symptoms Objective - Vital Signs Vital signs: Vital Signs Temp 98.8 F 11/28/17 07:26 Pulse 115 H 11/28/17 07:26 Resp 18 11/28/17 08:00 BP 114/79 11/28/17 07:26 Pulse Ox 90 L 11/28/17 07:26 Intake & Output 11/27/17 11/28/17 11/28/17 18:59 06:59 18:59 Intake Total 960 240 240 Output Total 200 Balance 760 240 240 Weight 75.2 kg Intake: Oral 960 240 240 Output: Urine 200 Other: Voiding Method Bedside Commode # Voids 1 1 - Exam In general patient is alert and oriented 3 in no apparent distress HEENT head normocephalic and atraumatic Neck is supple no JVD no goiter no lymphadenopathy Chest exam reveals a few scattered crackles no wheezing Cardiac exam reveals irregular heart beat with slight tachycardia no gallops no murmurs Abdomen is soft with diffuse tenderness no organomegaly no palpable masses Extremity exam reveals no edema no cyanosis or clubbing Neurological examination reveals no focal deficit - Labs CBC & Chem 7: 11/27/17 05:21 11/27/17 05:21 Labs: Microbiology - Last 24 Hours (Table) 11/24/17 20:38 Blood Culture - Preliminary Blood No Growth after 72 hours Assessment and Plan Plan: #1 febrile illness with worsening tremors there is evidence of UTI with positive leukocyte esterase however at this time with abdominal pain and diarrhea other concern is about stability of Clostridium difficile colitis so we will was hold any antibiotic at this time and check stools for C. diff will monitor temperature and white blood count closely will check urine culture. #2 atrial fibrillation heart rate is slightly fast and is improving will monitor closely cardiology consult was requested, patient was seen by Dr. 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 diff when patient is able to have a bowel movement Will resume home medication await cardiology input, gastroenterology consult requested and abdomen ultrasound done also repeat computed tomography scan of the abdomen and pelvis done is also reviewed and case discussed with Dr. Michele, plan to continue with conservative management no need for any endoscopic evaluation at this time.
--- NOTE | 2017-11-28 11:11 | P.PN ---
Subjective Progress Note Date: 11/28/17 This is a pleasant 67 showed female with history of coronary artery disease and prior PCI, PAD with prior stenting, paroxysmal atrial fibrillation, hypertension, hyperlipidemia, admitted to the hospital with febrile illness. She was discharged from the hospital with diagnosis of urosepsis, felt better and repeat presented to the hospital with fever with associated tremor and diarrhea. Influenza A and B were negative. Patient was found to be tachycardic with a heart rate of 100, she was under be in atrial fibrillation. Patient was seen and examined this morning, feeling better, mild shortness of breath. Continues to be in atrial fibrillation with a heart rate of 98 to low 1 teens this morning. We will increase her dose of beta jodie to 3 times a day today. Continue Xarelto 15 mg daily along with Plavix. Objective - Vital Signs Vital signs: Vital Signs Temp 98.8 F 11/28/17 07:26 Pulse 115 H 11/28/17 07:26 Resp 18 11/28/17 08:00 BP 114/79 11/28/17 07:26 Pulse Ox 90 L 11/28/17 07:26 Intake & Output 11/27/17 11/28/17 11/28/17 18:59 06:59 18:59 Intake Total 960 240 240 Output Total 200 Balance 760 240 240 Weight 75.2 kg Intake: Oral 960 240 240 Output: Urine 200 Other: Voiding Method Bedside Commode # Voids 1 1 - Exam PHYSICAL EXAMINATION: HEENT: Head is atraumatic, normocephalic. Pupils equal, round. Neck is supple. There is no elevated jugular venous pressure. HEART EXAMINATION: Heart S1 and S2 irregularly irregular CHEST EXAMINATION: And's reveal fine scattered crackles to the bases. ABDOMEN: Soft, nontender. Bowel sounds are heard. No organomegaly noted. EXTREMITIES: 2+ peripheral pulses with no evidence of peripheral edema and no calf tenderness noted. NEUROLOGIC patient is awake, alert and oriented -3. . - Labs CBC & Chem 7: 11/27/17 05:21 11/27/17 05:21 Labs: Microbiology - Last 24 Hours (Table) 11/24/17 20:38 Blood Culture - Preliminary Blood No Growth after 72 hours Assessment and Plan Plan: Assessment and plan #1 febrile illness with evidence of UTI, positive leukocyte Estrace #2 paroxysmal atrial fibrillation #3 acute on chronic kidney injury #4 COPD #5 prior history of smoking #6 known history of coronary artery disease with prior PCI #7 PAD with prior stenting #8 hyperlipidemia #9 asthma #10 hypothyroidism Plan We will increase the dose of metoprolol to 3 times a day today. Continue Plavix along with xarelto 15 mg daily. DNP note has been reviewed, I agree with a documented findings and plan of care. Patient was seen and examined.
--- NOTE | 2017-11-28 11:36 | PN ---
PROGRESS NOTE REQUESTING PHYSICIAN: Dr. Kelly The patient is a 67-year-old pleasant white female admitted to hospital with abdominal pain and diarrhea of 1 week duration. She is doing much better. Still has some abdominal pain. The diarrhea has resolved. No nausea, vomiting. On a full liquid diet, tolerating well. No fever, chills, or night sweats. PHYSICAL EXAMINATION: She appears comfortable. Blood pressure 106/68, pulse rate 93, temperature 95. HEENT EXAMINATION: Unremarkable. Conjunctivae pink. Sclerae anicteric. Oral cavity no lesions. NECK: No JVD or lymph node enlargement. Chest was clear to auscultation. HEART: Regular rate and rhythm. ABDOMEN: Soft. There was mild tenderness in the right upper quadrant area. Rest of the abdomen was benign. Bowel sounds are positive. No organomegaly. EXTREMITIES: No pedal edema. SKIN: No rashes. NEUROLOGIC: Alert and oriented x3. No focal deficits. LAB: From yesterday WBC 7.8, hemoglobin 10.9, platelets 233. Basic metabolic panel is within normal limits. AST 31, ALT is 55. IMPRESSION: Right upper quadrant abdominal pain with nausea, vomiting, and diarrhea for a week duration and symptoms gradually improving. Possible gastroenteritis. Doubt C diff colitis. CT of the abdomen and pelvis showed mild hepatomegaly with a small amount of fluid around the liver, but clinically does not have any ascites. No history of chronic liver disease. RECOMMENDATION: 1. Since patient is gradually improving. We will continue with symptomatic and supportive care. 2. Advance diet as tolerated. 3. Will sign off. Please call us if needed. Thank you for this consultation. MMODL / IJN: [id number] /
[2017-11-28] MEDS: MORPHINE ORAL SOLN 10 MG/5 ML CUP PO PRN ×2 (11:42→17:20)
[2017-11-28] MEDS: MULTIVITAMINS, THERA 1 EACH TAB PO SCH (11:43)
--- NOTE | 2017-11-28 14:13 | PN ---
PROGRESS NOTE She is less short of breath. She has less cough and occasional wheezing only at this time. On physical examination, blood pressure is 114/79, respiratory rate of 14, pulse rate of 115, temperature 98.8, O2 saturation on 4 L by nasal cannula is 92%. HEENT reveals pupils are equal chest with decreased breath sounds, prolonged expiration, but no wheeze. Cardiovascular system is S1, S2. Abdomen is soft. There is trace pedal edema. LABS: Reveal a white count of 7.8, hemoglobin of 10.9. IMPRESSION: At this time. 1. Recent urinary tract infection. 2. Atrial fibrillation with RVR. 3. Asthma with chronic obstructive pulmonary disease. 4. Obstructive sleep apnea. 5. Mass inflammatory in the nasopharynx likely. Continue montelukast, budesonide, albuterol, optimize the fluid status, increase activity level. Have her seen by [facility] to see if she is a candidate for inpatient rehab. Her prognosis at this time is fair. MMODL / IJN: [id number] /
[2017-11-28] MEDS: RIVAROXABAN 15 MG TAB PO SCH (17:22)
[2017-11-28] MEDS: MONTELUKAST 10 MG TAB PO SCH (23:09)
[2017-11-28] MEDS: OXcarbazepine 150 MG TAB PO SCH (23:09)
[2017-11-28] MEDS: MELATONIN 3 MG TABLET PO SCH (23:09)
--- NOTE | 2017-11-29 06:29 | P.CONS ---
History of Present Illness - Chief Complaint Medical debility - History of Present Illness I had the op to see patient for inpatient rehab consultation with regard to medical debility. She was admitted to [facility] November 25 with tremors, abdominal pain, diarrhea. Diagnoses of UTI and atrial fibrillation. Seen by Dr. Bernal for atrial fibrillation. Chest x-ray negative. Abdomen pelvis CT with hiatal hernia, trace of panic and ascites, cholecystectomy, pulmonary atelectasis and small effusions. Abdominal ultrasound right upper quadrant negative. Lower extremity Doppler negative for DVT. I have just added PT and OT. Previous functional history as elicited from patient: 67-year-old left-handed white female who is lives and 2 floor home with daughter. Daughter does cooking, laundry, driving. Patient on disability. Describes independent with standing shower, gait with standard cane. History of smoking remote past but doesn't smoke or drink currently. Dr. Lolita Fraga regular doctor. Family history mother with of DE in father had stroke and diabetes. Review of Systems Review of systems: ENT: Denies sneezes or discharge. Eyes: Denies discharge or photophobia. Cardiac: Denies chest pain or palpitation. Pulmonary: Denies cough or shortness of breath. Breast: Denies discharge or lumps. Gastrointestinal: Nausea and diarrhea now controlled. Genitourinary: Denies discharge or frequency. Musculoskeletal: Denies muscle or bone aches. Neurologic: Mild generalized weakness. Endocrine: Denies shakes or sweats. Oncology: Denies cancers. Dermatologic: Denies rash, itching, pruritus. ALLERGY/immunology: Denies sneezes, rashes. Past Medical History Past Medical History: Atrial Fibrillation, Coronary Artery Disease (CAD), Cancer , COPD, CVA/TIA, GERD/Reflux, Hyperlipidemia, Memory Impairment, Myocardial Infarction (DE), Osteoarthritis (OA), Sleep Apnea/CPAP/BIPAP, Thyroid Disorder, Vascular Disorder Additional Past Medical History / Comment(s): 11/28/14 Pt presented to floor s/p PTCA with stenting by Dr. Bernal today. Other HX: VASCULAR DEMENTIA. NO CPAP/ BIPAP. Hypothyroidism, RESTLESS LEG, right internal carotid artery completely occluded. 50-69% stenosis in the left internal carotid artery done, hx kidney cancer, uses O2 PRN, diverticulosis, IBS, PVD, cdiff 2013 Last Myocardial Infarction Date:: 11/03/14 History of Any Multi-Drug Resistant Organisms: None Reported Year Discovered:: None Past Surgical History: Cholecystectomy, Ear Surgery, Heart Catheterization With Stent, Hysterectomy, Orthopedic Surgery Additional Past Surgical History / Comment(s): 11/28/14 PTCA with stent, left CAROTID ENDARTERECTOMY. RIGHT NEPHRECTOMY. BILATERAL STENTS IN LOWER EXTREMITIES , L elbow surgery, R ear surgery for blockage. ankle Past Anesthesia/Blood Transfusion Reactions: Motion Sickness Date of Last Stent Placement:: 10/2014 Past Psychological History: Bipolar Additional Psychological History / Comment(s): HAS A AUTOM[employer]IVE CO[employer]ISION [employer] THROUGH [facility]. Pt lives with anam who is also her legal guardian. Uses cane at home and a walker on occasion, home O2 prn-pt rarely need to use. Has generally stopped tobacco use over the last several years but does occasionally smoke. Lives with a daughter who is an active smoker. Patient has a history of alcohol use in her youth no recent alcohol or recreational drug use. No experience. No international travel. No Animal exposures at this time Smoking Status: Former smoker Past Alcohol Use History: None Reported Past Drug Use History: None Reported - Past Family History Mother Family Medical History: COPD Additional Family Medical History / Comment(s): Mother is . She from respiratory failure. Father Family Medical History: Coronary Artery Disease (CAD), Myocardial Infarction (DE ) Additional Family Medical History / Comment(s): Father had gout Medications and Allergies Home Medications Medication Instructions Recorded Confirmed Type PARoxetine HCL 30 mg PO HS 07/02/14 11/24/17 History OXcarbazepine [Trileptal] 150 mg PO HS 11/04/14 11/24/17 History Melatonin 3 mg PO HS 03/05/16 11/24/17 History Metoprolol Tartrate [Lopressor] 25 mg PO BID 03/05/16 11/24/17 History PARoxetine HCL [Paxil] 30 mg PO DAILY 03/05/16 11/24/17 History Atorvastatin Calcium [Lipitor] 20 mg PO DAILY 06/13/17 11/24/17 History Calcium Polycarbophil [Fibercon] 1,250 mg PO DAILY 06/13/17 11/24/17 History Clopidogrel Bisulfate [Plavix] 75 mg PO DAILY 06/13/17 11/24/17 History Ferrous Sulfate [Iron (65 MG 325 mg PO DAILY 06/13/17 11/24/17 History Elemental)] Furosemide [Lasix] 40 mg PO DAILY 06/13/17 11/24/17 History Levothyroxine Sodium [Synthroid] 100 mcg PO DAILY 06/13/17 11/24/17 History Lurasidone HCl [Latuda] 20 mg PO DAILY 06/13/17 11/24/17 History Magnesium Oxide [Mag-Ox] 400 mg PO DAILY 06/13/17 11/24/17 History Montelukast [Singulair] 10 mg PO HS 06/13/17 11/24/17 History Pantoprazole Sodium [Protonix] 40 mg PO DAILY 06/13/17 11/24/17 History Potassium Chloride [Klor-Con 10] 10 meq PO DAILY 06/13/17 11/24/17 History Fluticasone/Vilanterol [Breo 1 puff INHALATION RT-DAILY 06/14/17 11/24/17 History Ellipta 100-25 Mcg Inhaler] Tiotropium [place]de [Spiriva] 1 cap INHALATION RT-DAILY 06/14/17 11/24/17 History Rivaroxaban [Xarelto] 15 mg PO W/SUPPER #30 tab 06/16/17 11/24/17 Rx Moxifloxacin HCl 400 mg PO DAILY #14 tab 11/15/17 11/24/17 Rx Multivitamins, Thera [Multivitamin 1 each PO DAILY@1200 #30 tab 11/15/17 Rx (formulary)] predniSONE 0 mg PO DIRECTED #12 tab 11/15/17 11/24/17 Rx Allergies Allergy/AdvReac Type Severity Reaction Status Date / Time latex Allergy Rash/Hives Verified 11/24/17 20:05 Penicillins Allergy Unknown Verified 11/24/17 20:05 Childhood Physical Exam Vitals: Vital Signs Temp Pulse Resp BP Pulse Ox 11/29/17 00:00 97.1 F L 96 18 118/61 90 L 11/28/17 20:00 96.8 F L 96 18 99/57 90 L 11/28/17 16:00 98.0 F 98 18 114/70 92 L 11/28/17 12:00 98.2 F 101 H 18 128/60 92 L 11/28/17 08:00 18 11/28/17 07:26 98.8 F 115 H 14 114/79 90 L Intake and Output 11/28/17 11/28/17 11/29/17 14:59 22:59 06:59 Intake Total 480 222 Output Total 1000 1000 Balance -520 222 -1000 Intake: Oral 480 222 Output: Urine 1000 1000 Other: Voiding Method Bedside Commode Bedside Commode # Voids 1 2 Weight 75.6 kg Skin: Good color, texture, turgor. General: Medium build and comfortable appearance. Head: Normocephalic, atraumatic. Eyes: Symmetric. Pupils equal round. Ears: Symmetric. Hearing within normal limits. Mouth: Clear. Neck: Supple. Carotid without bruit. Cardiac: Regular rate and rhythm. Lungs: Clear anteriorly and posteriorly. Abdomen: Soft active nontender. Extremities: Normal tone. Neurological: Mental status: Alert, cooperative, pleasant. Cranial nerves: Symmetric facial tone and trapezius. Motor: Good active movement all 4 limbs. Sensation: Intact throughout. DTRs: Symmetric and equal throughout. Mobility: Did not attempt to sit or stand this a.m. Results CBC & Chem 7: 11/27/17 05:21 11/27/17 05:21 Labs: Microbiology - Last 24 Hours (Table) 11/24/17 20:38 Blood Culture - Preliminary Blood No Growth after 96 hours Chest x-ray: report reviewed (Negative.) CT scan - abdomen: report reviewed (Hiatal hernia, trace hepatic ascites, status post closed likely. Pulmonary atelectasis and effusions small.) Venous US: report reviewed (Negative for DVT. Abdominal ultrasound right upper quadrant negative as well.) Assessment and Plan (1) Atrial fibrillation with RVR Current Visit: Yes Status: Acute Code(s): I48.91 - UNSPECIFIED ATRIAL FIBRILLATION SNOMED Code(s): 975314654740409 Plan: Impression: 1. Medical debility. 2. UTI. 3. Diarrhea and emesis. 4. Atrial fibrillation with slightly uncontrolled RVR. 5. Cardiac disease with history of DE. 6. Dyslipidemia. 7. Sleep apnea. 8. COPD. 9. History of stroke. Comments and plan: At this time are prescribed PT and OT. We'll follow therapies with yourself.
[2017-11-29] MEDS: SODIUM CHLORIDE 0.9% 1,000 ML IV SCH ×2 (06:37→06:39)
[2017-11-29] MEDS: LURASIDONE 40 MG TAB PO SCH (06:38)
[2017-11-29] MEDS: LEVOTHYROXINE 100 MCG TAB PO SCH (06:38)
[2017-11-29] MEDS: PANTOPRAZOLE 40 MG TABLET PO SCH (06:39)
[2017-11-29] MEDS: CLOPIDOGREL 75 MG TAB PO SCH (08:16)
[2017-11-29] MEDS: FERROUS SULFATE 325 MG TAB PO SCH (08:16)
[2017-11-29] MEDS: CALCIUM POLYCARBOPHIL 625 MG TAB PO SCH (08:16)
[2017-11-29] MEDS: ATORVASTATIN 20 MG TAB PO SCH (08:16)
[2017-11-29] MEDS: FUROSEMIDE 40 MG TAB PO SCH (08:17)
[2017-11-29] MEDS: METOPROLOL TARTRATE 50 MG TAB PO SCH ×3 (08:17→23:19)
[2017-11-29] MEDS: MAGNESIUM OXIDE 400 MG TAB PO SCH (08:17)
[2017-11-29] MEDS: POTASSIUM CHLORIDE ER 10 MEQ TAB.ER.PRT PO SCH (08:18)
[2017-11-29] MEDS: PARoxetine 10 MG TAB PO SCH ×2 (08:18→23:20)
[2017-11-29 09:00] LABS: Anisocytosis Slight; Basophils % (A) 0 %; Eosinophils # (A) 0.2 k/uL (0-0.7); Eosinophils % (A) 2 %; HCT 36.5 % (34.0-46.0); HGB 10.9 gm/dL (11.4-16.0); Hypochromasia Moderate; Lymphocytes # (A) 1.5 k/uL (1.0-4.8); Lymphocytes % (A) 14 %; MCH 25.5 pg (25.0-35.0); MCV 85.1 fL (80.0-100.0); Mean Platelet Volume 7.2; Monocytes # (A) 0.8 k/uL (0-1.0); Monocytes % (A) 8 %; Neutrophils # (A) 8.2 k/uL (1.3-7.7); Neutrophils % (A) 75 %; Platelet Count 257 k/uL (150-450); RBC 4.29 m/uL (3.80-5.40); RDW 17.3 % (11.5-15.5); WBC 10.9 k/uL (3.8-10.6)
[2017-11-29] MEDS: BREO ELLIPTA INHALATION SCH (09:02)
[2017-11-29] MEDS: SPIRIVA 18 MCG INHALATION SCH (09:02)
[2017-11-29] MEDS: BUDESONIDE 0.5 MG/2 ML NEBU INHALATION SCH ×2 (09:05→21:17)
[2017-11-29 09:15] LABS: Calcium 8.7 mg/dL (8.4-10.2); Potassium 4.7 mmol/L (3.5-5.1); Total Bilirubin 0.6 mg/dL (0.2-1.3); Total Protein 5.4 g/dL (6.3-8.2)
--- NOTE | 2017-11-29 09:50 | P.PN ---
Subjective Progress Note Date: 11/29/17 Interval history 11/29/17- patient being seen examined and evaluated today on rounds. Currently she is resting up in bed on 5 L of supplemental oxygen via nasal cannula. The patient does utilize a baseline home oxygen use of 2 L via nasal cannula at all times. Currently her oxygen saturations are in high 90s we will wean down her oxygen to 4 L at this time. She is currently being evaluated for inpatient rehab. PT and OT have been added. She feels her breathing is improving. She continues to have shortness of breath cough and wheeze however is less than severity overall. All of her labs and reports have been reviewed. Objective - Vital Signs Vital signs: Vital Signs Temp 97.6 F 11/29/17 08:00 Pulse 116 H 11/29/17 08:00 Resp 18 11/29/17 08:00 BP 95/57 11/29/17 08:00 Pulse Ox 90 L 11/29/17 08:00 Intake & Output 11/28/17 11/29/17 11/29/17 18:59 06:59 18:59 Intake Total 702 240 Output Total 1000 1000 Balance -298 -1000 240 Weight 75.6 kg Intake: Oral 702 240 Output: Urine 1000 1000 Other: Voiding Method Bedside Commode # Voids 2 - Exam GENERAL EXAM: Alert, comfortable in no apparent distress. HEAD: Normocephalic. EYES: Normal reaction of pupils, equal size. NOSE: Clear with pink turbinates. THROAT: No erythema or exudates. NECK: No masses, no JVD. CHEST: No chest wall deformity. LUNGS: Decreased air entry with no crackles, wheeze, rhonchi or dullness. CVS: S1 and S2 normal with no audible mumurs, regular rhythm. ABDOMEN: No hepatosplenomegaly, normal bowel sounds, no guarding or rigidity. EXTREMITIES: Trace pedal edema noted, pedal pulses palpable. CENTRAL NERVOUS SYSTEM: No focal deficits, tone is normal in all 4 extremities. - Labs CBC & Chem 7: 11/29/17 08:44 11/29/17 08:44 Labs: Abnormal Lab Results - Last 24 Hours (Table) 11/29/17 11/29/17 Range/Units 08:44 08:44 WBC 10.9 H (3.8-10.6) k/uL Hgb 10.9 L (11.4-16.0) gm/dL MCHC 30.0 L (31.0-37.0) g/dL RDW 17.3 H (11.5-15.5) % Neutrophils # 8.2 H (1.3-7.7) k/uL Sodium 136 L (137-145) mmol/L Carbon Dioxide 20 L (22-30) mmol/L Creatinine 1.07 H (0.52-1.04) mg/dL Glucose 113 H (74-99) mg/dL Total Protein 5.4 L (6.3-8.2) g/dL Albumin 3.0 L (3.5-5.0) g/dL Microbiology - Last 24 Hours (Table) 11/24/17 20:38 Blood Culture - Preliminary Blood No Growth after 96 hours Assessment and Plan Assessment: Assessment Recurrent UTI Atrial fibrillation with RVR Chronic persistent asthma overlap with chronic obstructive pulmonary disease disease Chronic hypoxia requires supplemental oxygen at home at 2 L Obstructive sleep apnea 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 Continue with pulmonary hygiene, coughing and deep breathing exercises, and supportive care. Supplemental oxygen to maintain oxygen saturations of 92% or better, continued to wean down as tolerated to her baseline which is 2 L nasal cannula. Initiate and encourage incentive spirometer. Physical medicine on consult for possible evaluation of inpatient rehab. Continue PT OT. Continue nebulizer treatments. GI and DVT prophylaxis. We will continue to monitor labs/results and adjust treatment as necessary. Further recommendations pending. I performed an examination of the patient and discussed their management with the nurse practitioner. I have reviewed the nurse practitioner's note and agree with the documented findings and plan of care.
[2017-11-29] MEDS ORDERED: LACTULOSE 20 GM/30 ML CUP PO ONE (11:21)
--- NOTE | 2017-11-29 11:35 | P.PN ---
Subjective Progress Note Date: 11/29/17 This is a pleasant 67 showed female with history of coronary artery disease and prior PCI, PAD with prior stenting, paroxysmal atrial fibrillation, hypertension, hyperlipidemia, admitted to the hospital with febrile illness. She was discharged from the hospital with diagnosis of urosepsis, felt better and repeat presented to the hospital with fever with associated tremor and diarrhea. Influenza A and B were negative. Patient was found to be tachycardic with a heart rate of 100, she was under be in atrial fibrillation. Patient was seen and examined this morning, feeling better, mild shortness of breath. Continues to be in atrial fibrillation with a heart rate of 98 to low 1 teens this morning. We will increase her dose of beta jodie to 3 times a day today. Continue Xarelto 15 mg daily along with Plavix. 11/29/2017 Patient was seen and examined this morning, blood pressure 106/60, heart rate in the 90s this morning. 90% on 4 L of oxygen. White blood cell count 10.9, hemoglobin 10.9, platelet count 257. Sodium 136, potassium 4.7, BUN 12, creatinine 1.0. Arrangements are being made for the patient to go to inpatient rehab today. Objective - Vital Signs Vital signs: Vital Signs Temp 97.6 F 11/29/17 08:00 Pulse 116 H 11/29/17 08:00 Resp 18 11/29/17 08:00 BP 95/57 11/29/17 08:00 Pulse Ox 90 L 11/29/17 08:00 Intake & Output 11/28/17 11/29/17 11/29/17 18:59 06:59 18:59 Intake Total 702 240 Output Total 1000 1000 Balance -298 -1000 240 Weight 75.6 kg Intake: Oral 702 240 Output: Urine 1000 1000 Other: Voiding Method Bedside Commode # Voids 2 - Exam PHYSICAL EXAMINATION: HEENT: Head is atraumatic, normocephalic. Pupils equal, round. Neck is supple. There is no elevated jugular venous pressure. HEART EXAMINATION: Heart S1 and S2 irregularly irregular CHEST EXAMINATION: And's reveal fine scattered crackles to the bases. ABDOMEN: Soft, nontender. Bowel sounds are heard. No organomegaly noted. EXTREMITIES: 2+ peripheral pulses with no evidence of peripheral edema and no calf tenderness noted. NEUROLOGIC patient is awake, alert and oriented -3. . - Labs CBC & Chem 7: 11/29/17 08:44 11/29/17 08:44 Labs: Abnormal Lab Results - Last 24 Hours (Table) 11/29/17 11/29/17 Range/Units 08:44 08:44 WBC 10.9 H (3.8-10.6) k/uL Hgb 10.9 L (11.4-16.0) gm/dL MCHC 30.0 L (31.0-37.0) g/dL RDW 17.3 H (11.5-15.5) % Neutrophils # 8.2 H (1.3-7.7) k/uL Sodium 136 L (137-145) mmol/L Carbon Dioxide 20 L (22-30) mmol/L Creatinine 1.07 H (0.52-1.04) mg/dL Glucose 113 H (74-99) mg/dL Total Protein 5.4 L (6.3-8.2) g/dL Albumin 3.0 L (3.5-5.0) g/dL Microbiology - Last 24 Hours (Table) 11/24/17 20:38 Blood Culture - Preliminary Blood No Growth after 96 hours Assessment and Plan Plan: Assessment and plan #1 febrile illness with evidence of UTI, positive leukocyte Estrace #2 paroxysmal atrial fibrillation #3 acute on chronic kidney injury #4 COPD #5 prior history of smoking #6 known history of coronary artery disease with prior PCI #7 PAD with prior stenting #8 hyperlipidemia #9 asthma #10 hypothyroidism Plan From cardiology's perspective, we will continue current medications patient is on. Plavix and xarelto. DNP note has been reviewed, I agree with a documented findings and plan of care. Patient was seen and examined.
--- NOTE | 2017-11-29 11:37 | P.PN ---
Subjective Progress Note Date: 11/29/17 Patient is a 67-year-old female who presented to [facility] emergency room with multiple complaints of worsening tremors, palpitations, fever, abdominal pain and diarrhea. Patient was recently admitted to [facility] and received IV antibiotic for urinary tract infection she was discharged home on 11/15/2017, she did well for few days then started having above symptoms and decided to come back to emergency room. Patient has known history of coronary artery disease and history of atrial fibrillation, also history of sleep apnea on CPAP at home. Patient was evaluated in the emergency room, temperature on presentation was 100.3 white blood count was mildly elevated at 11.6 BUN and creatinine were slightly elevated and there was moderate leukocyte esterase in the urine influenza A and B testing were negative, EKG revealed evidence of atrial fibrillation heart rate 101 chest x-ray did not reveal any acute abnormality computed tomography scan of the abdomen and pelvis did not reveal significant abnormality, patient was admitted to telemetry floor for further evaluation and treatment. 11/29/2017 patient is still not had a bowel movement since admission. She'll be given a dose of lactulose. Her abdominal abdomen is more distended and abdominal x-ray will be ordered. She is also more wheezy and short of breath chest x-rays ordered nebulizer treatments of been changed to scheduled. She has been hypotensive creatinine is 1.07. Cardiology has ordered a fluid bolus. Patient denies any nausea or vomiting. Is complaining of some abdominal discomfort. Denies any chest pain. Does admit to having some shortness of breath and cough. Objective - Vital Signs Vital signs: Vital Signs Temp 97.6 F 11/29/17 08:00 Pulse 116 H 11/29/17 08:00 Resp 18 11/29/17 08:00 BP 95/57 11/29/17 08:00 Pulse Ox 90 L 11/29/17 08:00 Intake & Output 11/28/17 11/29/17 11/29/17 18:59 06:59 18:59 Intake Total 702 240 Output Total 1000 1000 Balance -298 -1000 240 Weight 75.6 kg Intake: Oral 702 240 Output: Urine 1000 1000 Other: Voiding Method Bedside Commode # Voids 2 - Exam Head normocephalic Neck supple Lungs scattered wheezing bilaterally Heart regular rate and rhythm S1-S2, no rub or gallop Abdomen is soft distended positive bowel sounds no hepatosplenomegaly Extremities no edema Neuro alert and orientated to 3 - Labs CBC & Chem 7: 11/29/17 08:44 11/29/17 08:44 Labs: Abnormal Lab Results - Last 24 Hours (Table) 11/29/17 11/29/17 Range/Units 08:44 08:44 WBC 10.9 H (3.8-10.6) k/uL Hgb 10.9 L (11.4-16.0) gm/dL MCHC 30.0 L (31.0-37.0) g/dL RDW 17.3 H (11.5-15.5) % Neutrophils # 8.2 H (1.3-7.7) k/uL Sodium 136 L (137-145) mmol/L Carbon Dioxide 20 L (22-30) mmol/L Creatinine 1.07 H (0.52-1.04) mg/dL Glucose 113 H (74-99) mg/dL Total Protein 5.4 L (6.3-8.2) g/dL Albumin 3.0 L (3.5-5.0) g/dL Microbiology - Last 24 Hours (Table) 11/24/17 20:38 Blood Culture - Preliminary Blood No Growth after 96 hours Assessment and Plan Assessment: #1 febrile illness with worsening tremors present on admission. Likely secondary to gastroenteritis. Patient has been seen by GI service they're not planning for any endoscopy. Patient has had no further episodes of diarrhea. Urinalysis positive. However urine culture was contaminated. We'll repeat urinalysis with culture. Patient has had no further fevers. #2 paroxysmal atrial fibrillation: Cardiology increased metoprolol yesterday. 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 Creatinine is back up to 1.07. Patient was started on IV fluids this morning and has been given a fluid bolus. #7 mild acute COPD exacerbation: underlying history of COPD patient used to smoke but quit 6 years ago. Pulmonary service following. Patient has been having more wheezing today. We'll change nebulizers to scheduled around-the- clock. Repeat chest x-ray #8 underlying history of coronary artery disease #9 patient constipated with abdominal distention. Check abdominal x-ray. Give a dose of lactulose. We'll try to collect stool sample for C. diff #10 hypotension: Patient receiving a fluid bolus per cardiology Xarelto for DVT prophylaxis I performed an examination of the patient and discussed their management with the physician Publication Designer. I have reviewed the Physician Publication Designer's notes and agree with the documented findings and plan of care
--- NOTE | 2017-11-29 12:33 | XR ---
EXAMINATION TYPE: XR abdomen acute w cxr DATE OF EXAM: 11/29/2017 COMPARISON: NONE HISTORY: Pain TECHNIQUE: Single view of the chest and 2 views of the abdomen are submitted. FINDINGS: Single view of the chest fails demonstrate evidence for acute pulmonary disease. Coarse markings are seen throughout the right perihilar and right upper lobe regions suspicious for underlying pneumonia . Follow-up until resolution is advised. There is no evidence for pneumoperitoneum. The bowel gas pattern is unremarkable as there is air throughout nondilated small and large bowel. T here is a retained contrast throughout the colon with moderate fecal stasis. No sizeable air fluid levels.No mass effects are seen. Multiple clips are seen within the retroperit oneum. Right sided iliac stent and a smaller left-sided iliac stent noted to be in place. No unusual calcifications. IMPRESSION: 1. Correlate for right-sided pneumonia. 2. Moderate fecal stasis in retained contrast.
[2017-11-29] MEDS: ALBUTEROL NEBULIZED 2.5 MG/3 ML INHALATION SCH ×3 (13:15→21:17)
[2017-11-29] MEDS: MULTIVITAMINS, THERA 1 EACH TAB PO SCH (14:12)
--- NOTE | 2017-11-29 14:21 | PN ---
PROGRESS NOTE DATE OF SERVICE: November 29, 2017 The patient is a 67-year-old pleasant white female admitted to hospital with abdominal pain, diarrhea, which are gradually improving. In fact, this morning the abdominal pain has completely resolved. She did not have any bowel movement for the last [address] of the abdomen and pelvis showed some hepatomegaly and mild ascites. Her diet has been advanced as tolerated and she is tolerating well. She reports no nausea, vomiting. No fever, chills, or night sweats. PHYSICAL EXAMINATION: Appears comfortable no apparent distress. VITAL SIGNS: Stable. Blood pressure is 102/55, pulse 89, temperature 97.2 HEENT examination unremarkable. Conjunctivae pink. Sclerae anicteric. Oral cavity no lesions. Neck: No jugular venous distention or lymph node enlargement. Chest was clear to auscultation. HEART: Regular rate and rhythm. ABDOMEN: Soft. Bowel sounds are positive. No organomegaly. Extremities no pedal edema. NEUROLOGIC: Alert and oriented x3. No focal deficits. LAB: From today WBC 10.9, hemoglobin 10.9, platelets are normal. Basic metabolic panel is within normal limits. IMPRESSION: 1. Abdominal pain with right upper quadrant abdominal pain and diarrhea that has resolved since admission to the hospital, she continues to have mild pain in the right upper quadrant area, which is progressively getting worse on a regular diet tolerating well. 2. Acute renal insufficiency, which has since resolved. 3. Exacerbation of chronic obstructive pulmonary disease. RECOMMENDATION: 1. Continue with regular diet. 2. Encourage the patient to increase ambulation. 3. No indication to proceed with any endoscopy intervention at the present time. Thank you for this consultation. MMODL / IJN: [id number] /
[2017-11-29 16:42] LABS: Appearance,Urine Clear (Clear); Bilirubin,Urine Negative (Negative); Blood,Urine Negative (Negative); Color,Urine Light Yellow; Glucose,Urine (UA) Negative (Negative); Ketones,Urine Negative (Negative); Leukocyte Esterase,Urine Negative (Negative); Nitrite,Urine Negative (Negative); Protein,Urine Negative (Negative); Specific Gravity,Urine 1.004 (1.001-1.035); Urobilinogen,Urine <2.0 mg/dL (<2.0)
[2017-11-29 16:49] LABS: Glucose,Whole Blood 190 mg/dL (75-99)
[2017-11-29] MEDS: RIVAROXABAN 15 MG TAB PO SCH (17:42)
--- NOTE | 2017-11-29 22:13 | P.CONS ---
History of Present Illness - Reason for Consult Consult date: 11/29/17 - Chief Complaint Weakness and chills - History of Present Illness 67 year female presents to emergency center with a several-day history of feeling poorly associated with subjective fever and chills with increasing weakness associated with some shortness of breath minimal cough with some yellow sputum production and some abdominal discomfort. At the time of presentation to hospital she was having atrial fibrillation with a ventricular response of just about 100 and she subsequently has been seen by cardiology and has had some alteration of her medications with some improvement. The patient is feeling better at this time. However there were concerns to urinary infection potential pneumonia, and with her recent hospitalization the infectious diseases consultation was requested. As noted the patient recently was hospitalized which point time should evidence of significant infection of her sinus with a sinus masses being noted and will be having follow-up with Dr. Zuleta in the outpatient setting. At discharge she was treated with moxifloxacin for the severe infection of that site, as well as a potential concern for a pulmonary infection. She was treated during that stay for urinary infection which was resolved by her discharge. She relates that she's feeling better. She is feeling much less short of breath, she received some lactulose and is now had a adequate bowel movement and feels considerably better. Review of Systems HEENT:Denies headache or acute visual change. Denies mouth discomforts. This is improved. Denies oral pain. Significant sinus discomforts improving epistaxis improving Lungs: As per the HPI ongoing shortness of breath minimal cough no hemoptysis Cardiovascular: Denies significant shortness of breath, chest pain, chest wall pain, orthopnea, dyspnea on exertion, syncope Gastrointestinal:Denies nausea, vomiting, diarrhea, constipation, hematemesis, melena, hematochezia. No no significant change of bowel habit noticed. Musculoskeletal: denies significant myalgias or arthralgias. No new joint swelling. Denies new back pain. Skin: Denies new rash or lesions. No new ulcers or wounds are related.. Neuro: Denies headache or visual change. Denies any new onset of acute asymmetric weakness but has generalized weakness Psychiatric: Chronic anxiety Endocrine: Profound fatigue and worsening weight loss Past Medical History Past Medical History: Atrial Fibrillation, Coronary Artery Disease (CAD), Cancer , COPD, CVA/TIA, GERD/Reflux, Hyperlipidemia, Memory Impairment, Myocardial Infarction (MS), Osteoarthritis (OA), Sleep Apnea/CPAP/BIPAP, Thyroid Disorder, Vascular Disorder Additional Past Medical History / Comment(s): 11/28/14 Pt presented to floor s/p PTCA with stenting by Dr. Bernal today. Other HX: VASCULAR DEMENTIA. NO CPAP/ BIPAP. Hypothyroidism, RESTLESS LEG, right internal carotid artery completely occluded. 50-69% stenosis in the left internal carotid artery done, hx kidney cancer, uses O2 PRN, diverticulosis, IBS, PVD, cdiff 2013 Last Myocardial Infarction Date:: 11/03/14 History of Any Multi-Drug Resistant Organisms: None Reported Year Discovered:: None Past Surgical History: Cholecystectomy, Ear Surgery, Heart Catheterization With Stent, Hysterectomy, Orthopedic Surgery Additional Past Surgical History / Comment(s): 11/28/14 PTCA with stent, left CAROTID ENDARTERECTOMY. RIGHT NEPHRECTOMY. BILATERAL STENTS IN LOWER EXTREMITIES , L elbow surgery, R ear surgery for blockage. 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 Pt lives with anam who is also her legal guardian. Uses cane at home and a walker on occasion, home O2 prn-pt rarely need to use. Has generally stopped tobacco use over the last several years but does occasionally smoke. Lives with a daughter who is an active smoker. Patient has a history of alcohol use in her youth no recent alcohol or recreational drug use. No experience. No international travel. No Animal exposures at this time Smoking Status: Former smoker Past Alcohol Use History: None Reported Past Drug Use History: None Reported - Past Family History Mother Family Medical History: COPD Additional Family Medical History / Comment(s): Mother is . She from respiratory failure. Father Family Medical History: Coronary Artery Disease (CAD), Myocardial Infarction (MS ) Additional Family Medical History / Comment(s): Father had gout Medications and Allergies Home Medications and Allergies Comment(s): Current Medications Acetaminophen (Tylenol Tab) 650 mg PO Q6HR PRN PRN Reason: Fever and/ or Pain Last Admin: 11/26/17 21:30 Dose: 650 mg Albuterol Sulfate (Ventolin Nebulized) 2.5 mg INHALATION RT-QID AAKASH Last Admin: 11/29/17 21:17 Dose: Not Given Atorvastatin Calcium (Lipitor) 20 mg PO DAILY [facility] Last Admin: 11/29/17 08:16 Dose: 20 mg Budesonide (Pulmicort) 0.5 mg INHALATION RT-BID [facility] Last Admin: 11/29/17 21:17 Dose: Not Given Calcium Polycarbophil (Fibercon) 1,250 mg PO DAILY [facility] Last Admin: 11/29/17 08:16 Dose: 1,250 mg Clopidogrel Bisulfate (Plavix) 75 mg PO DAILY [facility] Last Admin: 11/29/17 08:16 Dose: 75 mg Docusate Sodium (Colace) 100 mg PO BID [facility] Ferrous Sulfate (Feosol) 325 mg PO DAILY [facility] Last Admin: 11/29/17 08:16 Dose: 325 mg Furosemide (Lasix) 40 mg PO DAILY [facility] Last Admin: 11/29/17 08:17 Dose: 40 mg Sodium Chloride (Saline 0.9%) 1,000 mls @ 100 mls/hr IV .Q10H [facility] Last Admin: 11/29/17 06:39 Dose: 100 mls/hr Levothyroxine Sodium (Synthroid) 100 mcg PO DAILY@0630 [facility] Last Admin: 11/29/17 06:38 Dose: 100 mcg Lurasidone HCl (Latuda) 20 mg PO W/BRKFST [facility] Last Admin: 11/29/17 06:38 Dose: 20 mg Magnesium Oxide (Mag-Ox) 400 mg PO DAILY [facility] Last Admin: 11/29/17 08:17 Dose: 400 mg Melatonin (Melatonin) 3 mg PO [facility] Last Admin: 11/28/17 23:09 Dose: 3 mg Metoprolol Tartrate (Lopressor) 50 mg PO TID [facility] Last Admin: 11/29/17 17:42 Dose: 50 mg Montelukast Sodium (Singulair) 10 mg PO HS [facility] Last Admin: 11/28/17 23:09 Dose: 10 mg Morphine Sulfate (Morphine Oral Krista 2mg/Ml) 12 mg PO Q4HR PRN PRN Reason: severe Pain Last Admin: 11/28/17 17:20 Dose: 12 mg Multivitamins (Theragran) 1 each PO DAILY@1200 [facility] Last Admin: 11/29/17 14:12 Dose: 1 each Nitroglycerin (Nitrostat) 0.4 mg SUBLINGUAL Q5M PRN PRN Reason: Chest Pain Breo Ellipta 100-25 (Mcg Inhaler) 1 each INHALATION DAILY [facility] Last Admin: 11/29/17 09:02 Dose: 1 each Spiriva 18 Mcg (Handihaler) 1 each INHALATION DAILY [facility] Last Admin: 11/29/17 09:02 Dose: 1 each Oxcarbazepine (Trileptal) 150 mg PO [facility] Last Admin: 11/28/17 23:09 Dose: 150 mg Pantoprazole Sodium (Protonix) 40 mg PO AC-BRKFST [facility] Last Admin: 11/29/17 06:39 Dose: 40 mg Paroxetine HCl (Paxil) 30 mg PO HS [facility] Last Admin: 11/28/17 23:10 Dose: 30 mg Paroxetine HCl (Paxil) 30 mg PO DAILY [facility] Last Admin: 11/29/17 08:18 Dose: 30 mg Potassium Chloride (K-Dur 10) 10 meq PO DAILY [facility] Last Admin: 11/29/17 08:18 Dose: 10 meq Rivaroxaban (Xarelto) 15 mg PO W/SUPPER [facility] Last Admin: 11/29/17 17:42 Dose: 15 mg Home Medications Medication Instructions Recorded Confirmed Type PARoxetine HCL 30 mg PO 07/02/14 11/24/17 History OXcarbazepine [Trileptal] 150 mg PO HS 11/04/14 11/24/17 History Melatonin 3 mg PO HS 03/05/16 11/24/17 History Metoprolol Tartrate [Lopressor] 25 mg PO BID 03/05/16 11/24/17 History PARoxetine HCL [Paxil] 30 mg PO DAILY 03/05/16 11/24/17 History Atorvastatin Calcium [Lipitor] 20 mg PO DAILY 06/13/17 11/24/17 History Calcium Polycarbophil [Fibercon] 1,250 mg PO DAILY 06/13/17 11/24/17 History Clopidogrel Bisulfate [Plavix] 75 mg PO DAILY 06/13/17 11/24/17 History Ferrous Sulfate [Iron (65 MG 325 mg PO DAILY 06/13/17 11/24/17 History Elemental)] Furosemide [Lasix] 40 mg PO DAILY 06/13/17 11/24/17 History Levothyroxine Sodium [Synthroid] 100 mcg PO DAILY 06/13/17 11/24/17 History Lurasidone HCl [Latuda] 20 mg PO DAILY 06/13/17 11/24/17 History Magnesium Oxide [Mag-Ox] 400 mg PO DAILY 06/13/17 11/24/17 History Montelukast [Singulair] 10 mg PO HS 06/13/17 11/24/17 History Pantoprazole Sodium [Protonix] 40 mg PO DAILY 06/13/17 11/24/17 History Potassium Chloride [Klor-Con 10] 10 meq PO DAILY 06/13/17 11/24/17 History Fluticasone/Vilanterol [Breo 1 puff INHALATION RT-DAILY 06/14/17 11/24/17 History Ellipta 100-25 Mcg Inhaler] Tiotropium [place] [Spiriva] 1 cap INHALATION RT-DAILY 06/14/17 11/24/17 History Rivaroxaban [Xarelto] 15 mg PO W/SUPPER #30 tab 06/16/17 11/24/17 Rx Moxifloxacin HCl 400 mg PO DAILY #14 tab 11/15/17 11/24/17 Rx Multivitamins, Thera [Multivitamin 1 each PO DAILY@1200 #30 tab 11/15/17 Rx (formulary)] predniSONE 0 mg PO DIRECTED #12 tab 11/15/17 11/24/17 Rx Allergies Allergy/AdvReac Type Severity Reaction Status Date / Time latex Allergy Rash/Hives Verified 11/24/17 20:05 Penicillins Allergy Unknown Verified 11/24/17 20:05 Childhood Physical Exam Vitals: Vital Signs Temp Pulse Resp BP Pulse Ox 11/29/17 16:00 97.0 F L 96 18 105/59 98 11/29/17 12:00 97.2 F L 89 18 102/55 92 L 11/29/17 08:00 97.6 F 116 H 18 95/57 90 L 11/29/17 04:00 97.8 F 91 18 106/57 91 L 11/29/17 00:00 97.1 F L 96 18 118/61 90 L Intake and Output 11/29/17 11/29/17 11/29/17 06:59 14:59 22:59 Intake Total 480 120 Output Total 1000 600 Balance -1000 480 -480 Intake: Oral 480 120 Output: Urine 1000 600 Other: Voiding Method Bedside Commode # Voids 2 0 # Bowel Movements 1 Weight 75.6 kg 67-year-old woman who has cachexia, seems comfortable this evening HEENT: Anicteric conjunctiva are pink and moist nasal mucosa grossly intact without significant lesions that are visible with bedside inspection, there is no thrush. Nasal cavity without active bleeding Neck: The neck is supple without significant lymphadenopathy or thyromegaly. Lungs: Symmetrical air entry is noted, expiratory wheezes with the lung chamberlain, no paola bronchial sounds, no dullness or egophony Heart: Irregular with a soft S4. There is no significant murmur click or rub, PMI was nondisplaced. Abdomen: Positive bowel sounds soft and nontender without palpable masses or organomegaly. There was no guarding or rebound. Extremities: The upper extremities have excellent pulses they are symmetric, no significant petechiae or telangiectasia. No splinter hemorrhages were noted. The lower extremities are free from significant edema. The peripheral pulses were 2+ and symmetric. Neuro: Awake alert oriented to person place and time. There are no acute new gross focal sensory motor deficits. Results CBC & Chem 7: 11/29/17 08:44 11/29/17 08:44 Labs: Abnormal Lab Results - Last 24 Hours (Table) 11/29/17 11/29/17 11/29/17 Range/Units 08:44 08:44 16:42 WBC 10.9 H (3.8-10.6) k/uL Hgb 10.9 L (11.4-16.0) gm/dL MCHC 30.0 L (31.0-37.0) g/dL RDW 17.3 H (11.5-15.5) % Neutrophils # 8.2 H (1.3-7.7) k/uL Sodium 136 L (137-145) mmol/L Carbon Dioxide 20 L (22-30) mmol/L Creatinine 1.07 H (0.52-1.04) mg/dL Glucose 113 H (74-99) mg/dL POC Glucose (mg/dL) 190 H (75-99) mg/dL Total Protein 5.4 L (6.3-8.2) g/dL Albumin 3.0 L (3.5-5.0) g/dL Microbiology - Last 24 Hours (Table) 11/24/17 20:38 Blood Culture - Preliminary Blood No Growth after 96 hours Laboratory Results WBC 10.9 k/uL (3.8-10.6) H 11/29/17 08:44 RBC 4.29 m/uL (3.80-5.40) 11/29/17 08:44 Hgb 10.9 gm/dL (11.4-16.0) L 04 08:44 Hct 36.5 % (34.0-46.0) 11/29/17 08:44 MCV 85.1 fL (80.0-100.0) 11/29/17 08:44 MCH 25.5 pg (25.0-35.0) 11/29/17 08:44 MCHC 30.0 g/dL (31.0-37.0) L 11/29/17 08:44 RDW 17.3 % (11.5-15.5) H 11/29/17 08:44 Plt Count 257 k/uL (150-450) 11/29/17 08:44 Neutrophils % 75 % 11/29/17 08:44 Lymphocytes % 14 % 11/29/17 08:44 Monocytes % 8 % 11/29/17 08:44 Eosinophils % 2 % 11/29/17 08:44 Basophils % 0 % 11/29/17 08:44 Neutrophils # 8.2 k/uL (1.3-7.7) H 11/29/17 08:44 Lymphocytes # 1.5 k/uL (1.0-4.8) 11/29/17 08:44 Monocytes # 0.8 k/uL (0-1.0) 11/29/17 08:44 Eosinophils # 0.2 k/uL (0-0.7) 11/29/17 08:44 Basophils # 0.0 k/uL (0-0.2) 11/29/17 08:44 Hypochromasia Moderate 11/29/17 08:44 Anisocytosis Slight 11/29/17 08:44 PT 11.1 sec (9.0-12.0) 11/24/17 20:38 INR 1.2 (<1.2) H 11/24/17 20:38 APTT 24.8 sec (22.0-30.0) 11/24/17 20:38 Sodium 136 mmol/L (137-145) L 11/29/17 08:44 Potassium 4.7 mmol/L (3.5-5.1) 11/29/17 08:44 Chloride 101 mmol/L (98-107) 11/29/17 08:44 Carbon Dioxide 20 mmol/L (22-30) L 11/29/17 08:44 Anion Gap 15 mmol/L 11/29/17 08:44 BUN 12 mg/dL (7-17) 11/29/17 08:44 Creatinine 1.07 mg/dL (0.52-1.04) H 11/29/17 08:44 Est GFR (CKD-EPI)AfAm 63 (>60 ml/min/1.73 sqM) 11/29/17 08:44 Est GFR (CKD-EPI)NonAf 55 (>60 ml/min/1.73 sqM) 11/29/17 08:44 Glucose 113 mg/dL (74-99) H 11/29/17 08:44 POC Glucose (mg/dL) 190 mg/dL (75-99) H 11/29/17 16:42 POC Glu Licensed Psychologist Manager ID Jaleesa Joseph 11/29/17 16:42 Plasma Lactic Acid Joshua 1.5 mmol/L (0.7-2.0) 11/24/17 20:38 Calcium 8.7 mg/dL (8.4-10.2) 11/29/17 08:44 Total Bilirubin 0.6 mg/dL (0.2-1.3) 11/29/17 08:44 AST 21 U/L (14-36) 11/29/17 08:44 ALT 43 U/L (9-52) 11/29/17 08:44 Alkaline Phosphatase 103 U/L (38-126) 11/29/17 08:44 Total Creatine Kinase <20 U/L (30-135) L 11/25/17 08:09 CK-MB (CK-2) 0.5 ng/mL (0.0-2.4) 11/25/17 08:09 CK-MB (CK-2) Rel Index 11/25/17 08:09 Troponin I <0.012 ng/mL (0.000-0.034) 11/25/17 08:09 Total Protein 5.4 g/dL (6.3-8.2) L 11/29/17 08:44 Albumin 3.0 g/dL (3.5-5.0) L 11/29/17 08:44 Triglycerides 56 mg/dL (<150) 11/25/17 03:07 Cholesterol 96 mg/dL (<200) 11/25/17 03:07 LDL Cholesterol, Calc 51 mg/dL (0-99) 11/25/17 03:07 HDL Cholesterol 34 mg/dL (40-60) L 11/25/17 03:07 Amylase 36 U/L (30-110) 11/26/17 07:55 Lipase 36 U/L (23-300) 11/26/17 07:55 Urine Color Light Yellow 11/29/17 16:29 Urine Appearance Clear (Clear) 11/29/17 16:29 Urine pH 5.0 (5.0-8.0) 11/29/17 16:29 Ur Specific [place] 1.004 (1.001-1.035) 11/29/17 16:29 Urine Protein Negative (Negative) 11/29/17 16:29 Urine Glucose (UA) Negative (Negative) 11/29/17 16:29 Urine Ketones Negative (Negative) 11/29/17 16:29 Urine Blood Negative (Negative) 11/29/17 16:29 Urine Nitrite Negative (Negative) 11/29/17 16:29 Urine Bilirubin Negative (Negative) 11/29/17 16:29 Urine Urobilinogen <2.0 mg/dL (<2.0) 11/29/17 16:29 Ur Leukocyte Esterase Negative (Negative) 11/29/17 16:29 Urine RBC 5 /hpf (0-5) 11/24/17 23:00 Urine WBC 4 /hpf (0-5) 11/24/17 23:00 Ur Squamous Epith Cells 1 /hpf (0-4) 11/24/17 23:00 Urine Bacteria Rare /hpf (None) H 11/24/17 23:00 Hyaline Casts 1 /lpf (0-2) 11/24/17 23:00 C. difficile (EIA) Intrp Negative (Negative) 11/29/17 18:15 Influenza Type A RNA Not Detected (Not Detectd) 11/24/17 20:45 Influenza Type B (PCR) Not Detected (Not Detectd) 11/24/17 20:45 Microbiology 11/24/17 20:38 Blood Blood Culture - Preliminary No Growth after 96 hours 11/24/17 23:00 Urine,Voided Urine Culture - Final Assessment and Plan (1) Atrial fibrillation with RVR Current Visit: Yes Status: Acute Code(s): I48.91 - UNSPECIFIED ATRIAL FIBRILLATION SNOMED Code(s): 782800533253025 (2) Bipolar disorder Current Visit: No Status: Acute Code(s): F31.9 - BIPOLAR DISORDER, UNSPECIFIED SNOMED Code(s): 92453453 (3) Abdominal pain Narrative/Plan: 67 year old female who is noted infectious disease service for recent hospitalization which point in time she is having difficulties with bleeding from her nasal cavity, potential pneumonia and a urinary tract infection. She was treated with antibiotic therapy during her hospital stay and the resolution of her urinary symptoms. However at discharge she was treated with moxifloxacin 400 mg a day which completed last week. She is supposed to follow- up with the ENT surgeon Dr. Zuelta regarding her sinus mass that was causing bleeding during her most recent stay. She relates she does have an outpatient visit coming up soon. She for she is having no further bleeding or discomfort from the nasal cavity at this time. Her exam reveals her to have no severe respiratory distress and her lungs only a rare expiratory wheeze. Evidence that the abdomen is soft and nontender. She has no flank tenderness or suprapubic discomfort. She is a follow-up urinalysis is completely normal and urine culture is negative. At this time appears that she is doing well and is not having significant acute infection at this time. She did have some constipation that is now resolved and she's feeling better as far as her abdominal pain. She'll follow-up with Dr. Mena in the outpatient setting and does not require antibiotic therapy at this point in time. Current Visit: Yes Status: Acute Code(s): R10.9 - UNSPECIFIED ABDOMINAL PAIN SNOMED Code(s): 27043090 (4) Shortness of breath Current Visit: Yes Status: Acute Code(s): R06.02 - SHORTNESS OF BREATH SNOMED Code(s): 480993923 (5) Nasal mass Current Visit: No Status: Acute Code(s): R22.0 - LOCALIZED SWELLING, MASS AND LUMP, HEAD SNOMED Code(s): 733467526
[2017-11-29] MEDS: MELATONIN 3 MG TABLET PO SCH (23:19)
[2017-11-29] MEDS: MONTELUKAST 10 MG TAB PO SCH (23:19)
[2017-11-29] MEDS: OXcarbazepine 150 MG TAB PO SCH (23:20)
[2017-11-29] MEDS: DOCUSATE 100 MG CAP PO SCH (23:20)
[2017-11-30] MEDS: LEVOTHYROXINE 100 MCG TAB PO SCH (06:46)
[2017-11-30] MEDS: LURASIDONE 40 MG TAB PO SCH (06:46)
[2017-11-30 06:47] LABS: Albumin 2.9 g/dL (3.5-5.0); Calcium 8.5 mg/dL (8.4-10.2); Potassium 4.3 mmol/L (3.5-5.1); Total Bilirubin 0.4 mg/dL (0.2-1.3); Total Protein 5.2 g/dL (6.3-8.2)
[2017-11-30] MEDS: PANTOPRAZOLE 40 MG TABLET PO SCH (06:47)
[2017-11-30 08:07] LABS: Anisocytosis Slight; Basophils % (A) 0 %; Eosinophils # (A) 0.2 k/uL (0-0.7); Eosinophils % (A) 3 %; HCT 35.5 % (34.0-46.0); HGB 10.8 gm/dL (11.4-16.0); Hypochromasia Moderate; Lymphocytes # (A) 1.4 k/uL (1.0-4.8); Lymphocytes % (A) 17 %; MCHC 30.5 g/dL (31.0-37.0); MCV 85.1 fL (80.0-100.0); Mean Platelet Volume 8.2; Monocytes # (A) 0.6 k/uL (0-1.0); Monocytes % (A) 8 %; Neutrophils # (A) 5.7 k/uL (1.3-7.7); Neutrophils % (A) 72 %; Platelet Count 231 k/uL (150-450); RBC 4.17 m/uL (3.80-5.40); RDW 17.3 % (11.5-15.5)
[2017-11-30] MEDS: SPIRIVA 18 MCG INHALATION SCH (08:16)
[2017-11-30] MEDS: BREO ELLIPTA INHALATION SCH (08:17)
[2017-11-30] MEDS: CLOPIDOGREL 75 MG TAB PO SCH (08:31)
[2017-11-30] MEDS: ATORVASTATIN 20 MG TAB PO SCH (08:31)
[2017-11-30] MEDS: CALCIUM POLYCARBOPHIL 625 MG TAB PO SCH (08:31)
[2017-11-30] MEDS: MAGNESIUM OXIDE 400 MG TAB PO SCH (08:32)
[2017-11-30] MEDS: FERROUS SULFATE 325 MG TAB PO SCH (08:32)
[2017-11-30] MEDS: FUROSEMIDE 40 MG TAB PO SCH (08:32)
[2017-11-30] MEDS: DOCUSATE 100 MG CAP PO SCH ×2 (08:32→20:53)
[2017-11-30] MEDS: PARoxetine 10 MG TAB PO SCH ×2 (08:33→20:53)
[2017-11-30] MEDS: METOPROLOL TARTRATE 50 MG TAB PO SCH ×3 (08:33→20:53)
[2017-11-30] MEDS: POTASSIUM CHLORIDE ER 10 MEQ TAB.ER.PRT PO SCH (08:33)
[2017-11-30] MEDS: ALBUTEROL NEBULIZED 2.5 MG/3 ML INHALATION SCH ×3 (08:33→19:34)
[2017-11-30] MEDS: BUDESONIDE 0.5 MG/2 ML NEBU INHALATION SCH ×2 (08:34→19:34)
--- NOTE | 2017-11-30 09:44 | P.PN ---
<Samantha Xiao E - Last Filed: 11/30/17 09:42> Subjective Progress Note Date: 11/30/17 Interval history 11/29/17- patient being seen examined and evaluated today on rounds. Currently she is resting up in bed on 5 L of supplemental oxygen via nasal cannula. The patient does utilize a baseline home oxygen use of 2 L via nasal cannula at all times. Currently her oxygen saturations are in high 90s we will wean down her oxygen to 4 L at this time. She is currently being evaluated for inpatient rehab. PT and OT have been added. She feels her breathing is improving. She continues to have shortness of breath cough and wheeze however is less than severity overall. All of her labs and reports have been reviewed. 11/30/17- patient is being seen examined and evaluated today on rounds. The patient is currently resting in bed on 2-3 L of supplemental oxygen via nasal cannula. Which is what she uses at home. She continues with PT and OT. She was also seen by infectious disease yesterday and requires no antibiotics at this time. Discharge planning process. She is afebrile no further complaints. Objective - Vital Signs Vital signs: Vital Signs Temp 97.5 F L 11/30/17 04:00 Pulse 100 11/30/17 04:00 Resp 18 11/30/17 04:00 BP 112/78 11/30/17 04:00 Pulse Ox 92 L 11/30/17 08:17 Intake & Output 11/29/17 11/30/17 11/30/17 18:59 06:59 18:59 Intake Total 600 120 Output Total 600 800 Balance 0 -800 120 Weight 75.4 kg Intake: Oral 600 120 Output: Urine 600 800 Other: Voiding Method Bedside Commode # Voids 0 1 # Bowel Movements 1 1 - Exam GENERAL EXAM: Alert, comfortable in no apparent distress. HEAD: Normocephalic. EYES: Normal reaction of pupils, equal size. NOSE: Clear with pink turbinates. THROAT: No erythema or exudates. NECK: No masses, no JVD. CHEST: No chest wall deformity. LUNGS: Decreased air entry with no crackles, wheeze, rhonchi or dullness. CVS: S1 and S2 normal with no audible mumurs, regular rhythm. ABDOMEN: No hepatosplenomegaly, normal bowel sounds, no guarding or rigidity. EXTREMITIES: Trace pedal edema noted, pedal pulses palpable. CENTRAL NERVOUS SYSTEM: No focal deficits, tone is normal in all 4 extremities. - Labs CBC & Chem 7: 11/30/17 06:05 11/30/17 06:05 Labs: Abnormal Lab Results - Last 24 Hours (Table) 11/29/17 11/30/17 11/30/17 Range/Units 16:42 06:05 06:05 Hgb 10.8 L (11.4-16.0) gm/dL MCHC 30.5 L (31.0-37.0) g/dL RDW 17.3 H (11.5-15.5) % POC Glucose (mg/dL) 190 H (75-99) mg/dL Alkaline Phosphatase 127 H (38-126) U/L Total Protein 5.2 L (6.3-8.2) g/dL Albumin 2.9 L (3.5-5.0) g/dL Microbiology - Last 24 Hours (Table) 11/29/17 16:29 Urine Culture - Preliminary Urine,Voided 11/24/17 20:38 Blood Culture - Preliminary Blood No Growth after 120 hours Assessment and Plan Assessment: Assessment Recurrent UTI Atrial fibrillation with RVR Chronic persistent asthma overlap with chronic obstructive pulmonary disease disease Chronic hypoxia requires supplemental oxygen at home at 2 L Obstructive sleep apnea 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 Medications have been reviewed and will be continued as ordered. Continue with pulmonary hygiene , coughing and deep breathing exercises, and supportive care. Supplemental oxygen to maintain oxygen saturations of 92% or better, continued to wean down as tolerated to her baseline which is 2 L nasal cannula. Initiate and encourage incentive spirometer. Physical medicine on consult for possible evaluation of inpatient rehab. Continue PT OT. Continue nebulizer treatments. GI and DVT prophylaxis. We will continue to monitor labs/results and adjust treatment as necessary. Further recommendations pending. I performed an examination of the patient and discussed their management with the nurse practitioner. I have reviewed the nurse practitioner's note and agree with the documented findings and plan of care. <Florinda Hutchinson - Last Filed: 11/30/17 14:52> Objective - Vital Signs Vital signs: Vital Signs Temp 97.7 F 11/30/17 08:00 Pulse 94 11/30/17 08:00 Resp 18 11/30/17 08:00 BP 98/80 11/30/17 08:00 Pulse Ox 92 L 11/30/17 08:17 Intake & Output 11/29/17 11/30/17 11/30/17 18:59 06:59 18:59 Intake Total 600 240 Output Total 600 800 200 Balance 0 -800 40 Weight 75.4 kg Intake: Oral 600 240 Output: Urine 600 800 200 Other: Voiding Method Bedside Commode # Voids 0 1 # Bowel Movements 1 1 - Labs CBC & Chem 7: 11/30/17 06:05 11/30/17 06:05 Labs: Abnormal Lab Results - Last 24 Hours (Table) 11/29/17 11/30/17 11/30/17 Range/Units 16:42 06:05 06:05 Hgb 10.8 L (11.4-16.0) gm/dL MCHC 30.5 L (31.0-37.0) g/dL RDW 17.3 H (11.5-15.5) % POC Glucose (mg/dL) 190 H (75-99) mg/dL Alkaline Phosphatase 127 H (38-126) U/L Total Protein 5.2 L (6.3-8.2) g/dL Albumin 2.9 L (3.5-5.0) g/dL Microbiology - Last 24 Hours (Table) 11/29/17 16:29 Urine Culture - Preliminary Urine,Voided 11/24/17 20:38 Blood Culture - Preliminary Blood No Growth after 120 hours Assessment and Plan Assessment: Respiratory and hemodynamic status is stable. Ok to DC from pulmonary standpoint. Florinda Hutchinson DO
[2017-11-30] MEDS ORDERED: HYDROcodone/APAP 5-325MG 1 EACH TAB PO PRN (11:52)
--- NOTE | 2017-11-30 12:14 | P.PN ---
Subjective Progress Note Date: 11/30/17 This is a pleasant 67 showed female with history of coronary artery disease and prior PCI, PAD with prior stenting, paroxysmal atrial fibrillation, hypertension, hyperlipidemia, admitted to the hospital with febrile illness. She was discharged from the hospital with diagnosis of urosepsis, felt better and repeat presented to the hospital with fever with associated tremor and diarrhea. Influenza A and B were negative. Patient was found to be tachycardic with a heart rate of 100, she was under be in atrial fibrillation. Patient was seen and examined this morning, feeling better, mild shortness of breath. Continues to be in atrial fibrillation with a heart rate of 98 to low 1 teens this morning. We will increase her dose of beta jodie to 3 times a day today. Continue Xarelto 15 mg daily along with Plavix. 11/29/2017 Patient was seen and examined this morning, blood pressure 106/60, heart rate in the 90s this morning. 90% on 4 L of oxygen. White blood cell count 10.9, hemoglobin 10.9, platelet count 257. Sodium 136, potassium 4.7, BUN 12, creatinine 1.0. Arrangements are being made for the patient to go to inpatient rehab today. 11/30/2017 Patient was seen and examined this morning, complaining of some abdominal discomfort earlier. Heart rate at time of my examination in the 100s. She did have an episode where her heart rate went up into the 150s but overall it's remained stable at 90-100. Objective - Vital Signs Vital signs: Vital Signs Temp 97.7 F 11/30/17 08:00 Pulse 94 11/30/17 08:00 Resp 18 11/30/17 08:00 BP 98/80 11/30/17 08:00 Pulse Ox 92 L 11/30/17 08:17 Intake & Output 11/29/17 11/30/17 11/30/17 18:59 06:59 18:59 Intake Total 600 120 Output Total 600 800 Balance 0 -800 120 Weight 75.4 kg Intake: Oral 600 120 Output: Urine 600 800 Other: Voiding Method Bedside Commode # Voids 0 1 # Bowel Movements 1 1 - Exam PHYSICAL EXAMINATION: HEENT: Head is atraumatic, normocephalic. Pupils equal, round. Neck is supple. There is no elevated jugular venous pressure. HEART EXAMINATION: Heart S1 and S2 irregularly irregular CHEST EXAMINATION: lungs reveal fine scattered crackles to the bases. ABDOMEN: Soft, nontender. Bowel sounds are heard. No organomegaly noted. EXTREMITIES: 2+ peripheral pulses with no evidence of peripheral edema and no calf tenderness noted. NEUROLOGIC patient is awake, alert and oriented -3. . - Labs CBC & Chem 7: 11/30/17 06:05 11/30/17 06:05 Labs: Abnormal Lab Results - Last 24 Hours (Table) 11/29/17 11/30/17 11/30/17 Range/Units 16:42 06:05 06:05 Hgb 10.8 L (11.4-16.0) gm/dL MCHC 30.5 L (31.0-37.0) g/dL RDW 17.3 H (11.5-15.5) % POC Glucose (mg/dL) 190 H (75-99) mg/dL Alkaline Phosphatase 127 H (38-126) U/L Total Protein 5.2 L (6.3-8.2) g/dL Albumin 2.9 L (3.5-5.0) g/dL Microbiology - Last 24 Hours (Table) 11/29/17 16:29 Urine Culture - Preliminary Urine,Voided 11/24/17 20:38 Blood Culture - Preliminary Blood No Growth after 120 hours Assessment and Plan Plan: Assessment and plan #1 febrile illness with evidence of UTI, positive leukocyte Estrace #2 paroxysmal atrial fibrillation #3 acute on chronic kidney injury #4 COPD #5 prior history of smoking #6 known history of coronary artery disease with prior PCI #7 PAD with prior stenting #8 hyperlipidemia #9 asthma #10 hypothyroidism Plan From cardiology's perspective, we will continue current medications patient is on. She may be able to be discharged once cleared by the primary. We will make her a follow-up appointment in the office post discharge. DNP note has been reviewed, I agree with a documented findings and plan of care. Patient was seen and examined.
[2017-11-30] MEDS ORDERED: LACTULOSE 20 GM/30 ML CUP PO ONE (13:36)
--- NOTE | 2017-11-30 13:50 | P.PN ---
Subjective Progress Note Date: 11/30/17 Patient is a 67-year-old female who presented to [facility] emergency room with multiple complaints of worsening tremors, palpitations, fever, abdominal pain and diarrhea. Patient was recently admitted to [facility] and received IV antibiotic for urinary tract infection she was discharged home on 11/15/2017, she did well for few days then started having above symptoms and decided to come back to emergency room. Patient has known history of coronary artery disease and history of atrial fibrillation, also history of sleep apnea on CPAP at home. Patient was evaluated in the emergency room, temperature on presentation was 100.3 white blood count was mildly elevated at 11.6 BUN and creatinine were slightly elevated and there was moderate leukocyte esterase in the urine influenza A and B testing were negative, EKG revealed evidence of atrial fibrillation heart rate 101 chest x-ray did not reveal any acute abnormality computed tomography scan of the abdomen and pelvis did not reveal significant abnormality, patient was admitted to telemetry floor for further evaluation and treatment. 11/29/2017 patient is still not had a bowel movement since admission. She'll be given a dose of lactulose. Her abdominal abdomen is more distended and abdominal x-ray will be ordered. She is also more wheezy and short of breath chest x-rays ordered nebulizer treatments of been changed to scheduled. She has been hypotensive creatinine is 1.07. Cardiology has ordered a fluid bolus. Patient denies any nausea or vomiting. Is complaining of some abdominal discomfort. Denies any chest pain. Does admit to having some shortness of breath and cough. 11/30/2017 patient reports improvement in her shortness of breath. His was able to have a bowel movement. Acute abdominal series does report correlate for right-sided pneumonia and moderate fecal stasis and retained contrast. Patient given a dose of lactulose yesterday. She was able to have a bowel movement. Still reporting some abdominal pain in that right upper quadrant. No nausea or vomiting. Abdominal distention has shown some improvement. Stool for C. diff was negative. Repeat urinalysis negative. Patient was reevaluated by GI service they are still reporting no need for endoscopy. And also seen by infectious disease there is no new infection recommending no antibiotics. Patient has been cleared for discharge by both pulmonary and cardiology service. Patient did have a heart rate up into the 150s but she is mostly staying in the 90s to low 100s. Case discussed with cardiology. They are aware and no new changes in medications. Also her pain could be contributing to her elevated heart rate. Morphine will be discontinued today it is making patient very sleepy and lethargic. We will place her on [place]. Abdominal discomfort may be more related to constipation. Objective - Vital Signs Vital signs: Vital Signs Temp 97.7 F 11/30/17 08:00 Pulse 94 11/30/17 08:00 Resp 18 11/30/17 08:00 BP 98/80 11/30/17 08:00 Pulse Ox 92 L 11/30/17 08:17 Intake & Output 11/29/17 11/30/17 11/30/17 18:59 06:59 18:59 Intake Total 600 240 Output Total 600 800 200 Balance 0 -800 40 Weight 75.4 kg Intake: Oral 600 240 Output: Urine 600 800 200 Other: Voiding Method Bedside Commode # Voids 0 1 # Bowel Movements 1 1 - Exam Head normocephalic Neck supple Lungs few scattered wheezing bilaterally that didn't improve with cough Heart regular rate and rhythm S1-S2, no rub or gallop Abdomen is soft improvement and abdominal distention. Tenderness in the right upper quadrant. Positive bowel sounds Extremities no edema Neuro alert and orientated to 3 - Labs CBC & Chem 7: 11/30/17 06:05 11/30/17 06:05 Labs: Abnormal Lab Results - Last 24 Hours (Table) 11/29/17 11/30/17 11/30/17 Range/Units 16:42 06:05 06:05 Hgb 10.8 L (11.4-16.0) gm/dL MCHC 30.5 L (31.0-37.0) g/dL RDW 17.3 H (11.5-15.5) % POC Glucose (mg/dL) 190 H (75-99) mg/dL Alkaline Phosphatase 127 H (38-126) U/L Total Protein 5.2 L (6.3-8.2) g/dL Albumin 2.9 L (3.5-5.0) g/dL Microbiology - Last 24 Hours (Table) 11/29/17 16:29 Urine Culture - Preliminary Urine,Voided 11/24/17 20:38 Blood Culture - Preliminary Blood No Growth after 120 hours Assessment and Plan Assessment: #1 febrile illness with worsening tremors present on admission. Likely secondary to gastroenteritis. Patient has been seen by GI service they're not planning for any endoscopy. Patient has had no further episodes of diarrhea. Urinalysis positive. However urine culture was contaminated. Repeat urinalysis negative. Patient has had no further fevers. Patient evaluated by infectious disease. 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 Creatinine has normalized with IV fluids. Fluids are currently KVO #7 mild acute COPD exacerbation: underlying history of COPD patient used to smoke but quit 6 years ago. Pulmonary service following. Patient has been having more wheezing today. We'll change nebulizers to scheduled around-the- clock. Chest x-ray has coarse markings that are suspicious for right-sided pneumonia. Patient seen by both pulmonary and infectious disease. Doubt clinically pneumonia. Patient's white count has normalized without antibiotics. No fever. #8 underlying history of coronary artery disease #9 constipation with abdominal pain. Patient did have bowel movement with lactulose. We'll order another dose of lactulose. Start MiraLAX and continue stool softener. Discontinue oral morphine. Place patient on [place] 5/325 one every 4 hours as needed for pain #10 hypotension: Improved with fluid bolus. Patient blood pressure this morning 101/52. Morphine could also be contributing to patient's hypotension. Morphine was discontinued Patient has worked with physical therapy she is not a candidate for [facility] rehab or ECF placement. Patient will be transferred to medical floor with no telemetry. We'll monitor patient for another 24 hours due to her abdominal pain which is likely related to her constipation. Anticipate discharge home possibly tomorrow Xarelto for DVT prophylaxis I performed an examination of the patient and discussed their management with the physician Product Development Actuary. I have reviewed the Physician Product Development Actuary's notes and agree with the documented findings and plan of care
[2017-11-30] MEDS: MULTIVITAMINS, THERA 1 EACH TAB PO SCH (18:48)
[2017-11-30] MEDS: SODIUM CHLORIDE 0.9% 1,000 ML IV SCH ×3 (19:03→20:30)
[2017-11-30] MEDS: RIVAROXABAN 15 MG TAB PO SCH (20:29)
[2017-11-30] MEDS: MELATONIN 3 MG TABLET PO SCH (20:53)
[2017-11-30] MEDS: MONTELUKAST 10 MG TAB PO SCH (20:53)
[2017-11-30] MEDS: OXcarbazepine 150 MG TAB PO SCH (20:53)
[2017-11-30] MEDS ORDERED: POLYETHYLENE GLYCOL 3350 17 GM POWD.PACK PO SCH (21:00)
[2017-12-01 06:45] LABS: Anisocytosis Slight; Basophils % (A) 0 %; Eosinophils # (A) 0.2 k/uL (0-0.7); Eosinophils % (A) 2 %; HCT 37.7 % (34.0-46.0); HGB 11.3 gm/dL (11.4-16.0); Hypochromasia Marked; Lymphocytes # (A) 1.3 k/uL (1.0-4.8); Lymphocytes % (A) 18 %; MCH 26.2 pg (25.0-35.0); MCV 87.1 fL (80.0-100.0); Mean Platelet Volume 7.4; Monocytes # (A) 0.5 k/uL (0-1.0); Monocytes % (A) 8 %; Neutrophils # (A) 4.9 k/uL (1.3-7.7); Neutrophils % (A) 70 %; Platelet Count 233 k/uL (150-450); RBC 4.33 m/uL (3.80-5.40); RDW 17.2 % (11.5-15.5)
[2017-12-01] MEDS: SODIUM CHLORIDE 0.9% 1,000 ML IV SCH ×2 (07:00→11:23)
[2017-12-01] MEDS: PANTOPRAZOLE 40 MG TABLET PO SCH (07:04)
[2017-12-01] MEDS: LURASIDONE 40 MG TAB PO SCH (07:04)
[2017-12-01] MEDS: LEVOTHYROXINE 100 MCG TAB PO SCH (07:04)
[2017-12-01 07:05] LABS: Albumin 2.8 g/dL (3.5-5.0); Calcium 8.6 mg/dL (8.4-10.2); Potassium 4.1 mmol/L (3.5-5.1); Total Bilirubin 0.6 mg/dL (0.2-1.3); Total Protein 5.3 g/dL (6.3-8.2)
--- NOTE | 2017-12-01 08:02 | CDI ---
Last Revision, July 2017 Documentation Clarification Form Date: November From: Marycruz Bray Admit Date: 11/25/2017 12:42:00 AM Patient Name: Kathy Mckeon Visit Number: [id number] ATTENTION: The Clinical Documentation Specialists (CDI) and [facility] Coding Staff appreciate your assistance in clarifying documentation. Please respond to the clarification below the line at the bottom and electronically sign. The CDI & [facility] Coding staff will review the response and follow-up if needed. Please note: Queries are made part of the Legal Health Record. If you have any questions, please contact the author of this message via ITS. Dr. Abelardo Kelly, Acute on chronic kidney injury was documented in the PN dated 11/25 - 11/30 History/Risk Factors: a fib, cad, cancer, copd, cva/tia, gerd, hyperlipidemia, memory impairment, mi, oa, sleep apnea, thyroid disorder, vascular disorder, vascular dementia, cath with stents presented with fever, tremors Clinical Indicators: Patients BUN/CR/GFR on admission: /1.1251 Curent BUN/Cr/GFR : 14/0.93/65 Treatment: Monitor Lab IVF: .9 @ 100ml/hr In order to capture the severity of condition, please clarify if the condition signifies: Acute renal failure, Please specify etiology (if known): Acute kidney injury Acute on chronic renal failure CKD Stage 1 GFR >90 CKD Stage 2 GFR 60-89 CKD Stage 3 GFR 30-59 Chronic renal failure/Chronic Kidney disease (CKD) please stage if known CKD Stage 1 GFR >90 CKD Stage 2 GFR 60-89 CKD Stage 3 GFR 30-59 Other, please specify Unable to determine Please continue to document in your progress notes, under the line below and/or in the discharge summary in order to capture severity of illness and risk of mortality. Include clinical findings that support your diagnosis. Acute on chronic kidney disease stage II MTDD
[2017-12-01] MEDS: BREO ELLIPTA INHALATION SCH (08:06)
[2017-12-01] MEDS: ALBUTEROL NEBULIZED 2.5 MG/3 ML INHALATION SCH ×3 (08:06→16:14)
[2017-12-01] MEDS: SPIRIVA 18 MCG INHALATION SCH (08:06)
[2017-12-01] MEDS: BUDESONIDE 0.5 MG/2 ML NEBU INHALATION SCH (08:06)
[2017-12-01] MEDS: FERROUS SULFATE 325 MG TAB PO SCH (08:10)
[2017-12-01] MEDS: CLOPIDOGREL 75 MG TAB PO SCH (08:10)
[2017-12-01] MEDS: MAGNESIUM OXIDE 400 MG TAB PO SCH (08:10)
[2017-12-01] MEDS: METOPROLOL TARTRATE 50 MG TAB PO SCH ×2 (08:10→17:17)
[2017-12-01] MEDS: FUROSEMIDE 40 MG TAB PO SCH (08:10)
[2017-12-01] MEDS: DOCUSATE 100 MG CAP PO SCH (08:10)
[2017-12-01] MEDS: POTASSIUM CHLORIDE ER 10 MEQ TAB.ER.PRT PO SCH (08:10)
[2017-12-01] MEDS: ATORVASTATIN 20 MG TAB PO SCH (08:10)
[2017-12-01] MEDS: PARoxetine 10 MG TAB PO SCH (08:11)
[2017-12-01] MEDS: CALCIUM POLYCARBOPHIL 625 MG TAB PO SCH (08:11)
--- NOTE | 2017-12-01 10:01 | P.PN ---
Subjective Progress Note Date: 12/01/17 Interval history 11/29/17- patient being seen examined and evaluated today on rounds. Currently she is resting up in bed on 5 L of supplemental oxygen via nasal cannula. The patient does utilize a baseline home oxygen use of 2 L via nasal cannula at all times. Currently her oxygen saturations are in high 90s we will wean down her oxygen to 4 L at this time. She is currently being evaluated for inpatient rehab. PT and OT have been added. She feels her breathing is improving. She continues to have shortness of breath cough and wheeze however is less than severity overall. All of her labs and reports have been reviewed. 11/30/17- patient is being seen examined and evaluated today on rounds. The patient is currently resting in bed on 2-3 L of supplemental oxygen via nasal cannula. Which is what she uses at home. She continues with PT and OT. She was also seen by infectious disease yesterday and requires no antibiotics at this time. Discharge planning process. She is afebrile no further complaints. 12/01/17- patient has been seen examined and evaluated today on rounds. She continues resting up in bed on 2-3 L of supplemental oxygen via nasal cannula. She has been participating with PT and OT. She is potentially being discharged. She feels her breathing is relatively stable. Objective - Vital Signs Vital signs: Vital Signs Temp 98.3 F 12/01/17 08:00 Pulse 68 12/01/17 08:00 Resp 16 12/01/17 08:00 BP 106/70 12/01/17 08:00 Pulse Ox 91 L 12/01/17 08:10 Intake & Output 11/30/17 12/01/17 12/01/17 18:59 06:59 18:59 Intake Total 240 120 Output Total 600 302 Balance -360 -302 120 Weight 74.7 kg Intake: Oral 240 120 Output: Urine 600 300 Urine/Stool Mix 2 Other: Voiding Method Bedside Commode # Voids 1 - Exam GENERAL EXAM: Alert, comfortable in no apparent distress. HEAD: Normocephalic. EYES: Normal reaction of pupils, equal size. NOSE: Clear with pink turbinates. THROAT: No erythema or exudates. NECK: No masses, no JVD. CHEST: No chest wall deformity. LUNGS: Decreased air entry with no crackles, wheeze, rhonchi or dullness. CVS: S1 and S2 normal with no audible mumurs, regular rhythm. ABDOMEN: No hepatosplenomegaly, normal bowel sounds, no guarding or rigidity. EXTREMITIES: Trace pedal edema noted, pedal pulses palpable. CENTRAL NERVOUS SYSTEM: No focal deficits, tone is normal in all 4 extremities. - Labs CBC & Chem 7: 12/01/17 06:18 12/01/17 06:18 Labs: Abnormal Lab Results - Last 24 Hours (Table) 12/01/17 12/01/17 Range/Units :18 06:18 Hgb 11.3 L (11.4-16.0) gm/dL MCHC 30.0 L (31.0-37.0) g/dL RDW 17.2 H (11.5-15.5) % Alkaline Phosphatase 140 H (38-126) U/L Total Protein 5.3 L (6.3-8.2) g/dL Albumin 2.8 L (3.5-5.0) g/dL Microbiology - Last 24 Hours (Table) 11/29/17 16:29 Urine Culture - Final Urine,Voided 11/24/17 20:38 Blood Culture - Final Blood No Growth after 144 hours Assessment and Plan Assessment: Assessment Recurrent UTI Atrial fibrillation with RVR Chronic persistent asthma overlap with chronic obstructive pulmonary disease disease Chronic hypoxia requires supplemental oxygen at home at 2 L Obstructive sleep apnea 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 Medications have been reviewed and will be continued as ordered. Continue with pulmonary hygiene , coughing and deep breathing exercises, and supportive care. Supplemental oxygen to maintain oxygen saturations of 92% or better, continued to wean down as tolerated to her baseline which is 2 L nasal cannula. Initiate and encourage incentive spirometer. Physical medicine on consult for possible evaluation of inpatient rehab. Continue PT OT. Continue nebulizer treatments. GI and DVT prophylaxis. We will continue to monitor labs/results and adjust treatment as necessary. Further recommendations pending. I performed an examination of the patient and discussed their management with the nurse practitioner. I have reviewed the nurse practitioner's note and agree with the documented findings and plan of care.
[2017-12-01] MEDS: MULTIVITAMINS, THERA 1 EACH TAB PO SCH (11:23)
[2017-12-01 11:26] VITALS: PULSE 99; RESP 18
--- NOTE | 2017-12-01 13:06 | P.DS ---
Providers Date of admission: 11/25/17 00:42 Expected date of discharge: 12/01/17 Attending physician: Abelardo Kelly Consults: 11/25/17 13:09 Consult Physician Urgent Consulting Provider: Connor Bernal Consult Reason/Comments: afib rvr Do you want consulting provider notified?: Yes 11/25/17 13:46 Consult Physician Routine Consulting Provider: Delgado Rodriguez Consult Reason/Comments: copd Do you want consulting provider notified?: Yes 11/28/17 12:30 Consult Physician Routine Consulting Provider: Keenan Gonzalez Consult Reason/Comments: medical debility Do you want consulting provider notified?: Yes 11/29/17 14:29 Consult Physician Routine Consulting Provider: Rk Severino Consult Reason/Comments: Abdominal infection and possible pneumonia Do you want consulting provider notified?: Yes Primary care physician: Lolita Fraga Hospital Course: Diagnosis on discharge: #1 febrile illness with worsening tremors present on admission. Likely secondary to gastroenteritis. Patient has been seen by GI service they're not planning for any endoscopy. Patient has had no further episodes of diarrhea. Urinalysis positive. However urine culture was contaminated. Repeat urinalysis negative. Patient has had no further fevers. Patient evaluated by infectious disease. 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 Creatinine has normalized with IV fluids. Fluids are currently KVO #7 mild acute COPD exacerbation: underlying history of COPD patient used to smoke but quit 6 years ago. Pulmonary service following. Patient has been having more wheezing today. We'll change nebulizers to scheduled around-the- clock. Chest x-ray has coarse markings that are suspicious for right-sided pneumonia. Patient seen by both pulmonary and infectious disease. Doubt clinically pneumonia. Patient's white count has normalized without antibiotics. No fever. #8 underlying history of coronary artery disease #9 constipation with abdominal pain. Patient did have bowel movement with lactulose. We'll order another dose of lactulose. Start MiraLAX and continue stool softener. Discontinue oral morphine. Place patient on Jackson 5/325 one every 4 hours as needed for pain #10 hypotension: Improved with fluid bolus. Patient blood pressure this morning 101/52. Morphine could also be contributing to patient's hypotension. Morphine was discontinued Hospital course: Patient is a 67-year-old female who presented to [facility] emergency room with multiple complaints of worsening tremors, palpitations, fever, abdominal pain and diarrhea. Patient was recently admitted to [facility] and received IV antibiotic for urinary tract infection she was discharged home on 11/15/2017, she did well for few days then started having above symptoms and decided to come back to emergency room. Patient has known history of coronary artery disease and history of atrial fibrillation, also history of sleep apnea on CPAP at home. Patient was evaluated in the emergency room, temperature on presentation was 100.3 white blood count was mildly elevated at 11.6 BUN and creatinine were slightly elevated and there was moderate leukocyte esterase in the urine influenza A and B testing were negative, EKG revealed evidence of atrial fibrillation heart rate 101 chest x-ray did not reveal any acute abnormality computed tomography scan of the abdomen and pelvis did not reveal significant abnormality, patient was admitted to telemetry floor for further evaluation and treatment. On 11/26/2017 Patient is alert and oriented in no apparent distress, complaining of abdominal pain, otherwise no complaints, she was having fever and diarrhea at home, she has been afebrile since admission, and there is no bowel movement or diarrhea since admission, stools for C. diff was ordered however patient was unable to provide a sample so far, patient continues to complain of abdominal pain and discomfort, ultrasound of the abdomen was ordered and consultation for gastroenterology was requested, otherwise patient denies any other complaint at this time. On 11/27/2017 patient is alert and oriented complaining of some abdominal discomfort otherwise denies any complaints she has not had any bowel movement since admission she denies any chest pain or shortness of breath no nausea or vomiting ultrasound of the abdomen done yesterday was unremarkable, repeat computed tomography scan of the abdomen and pelvis done yesterday reveals evidence of ascites and hepatomegaly, gastroenterology consultation are following. On 11/28/2017 patient is alert and oriented 3 still having some abdominal discomfort mostly in the right lower quadrant, she has not had any bowel movement since admission, otherwise she denies any complaints there is no fever or chills no headache no dizziness no chest pain or shortness of breath no cough no nausea or vomiting or diarrhea and no urinary symptoms. 11/29/2017 patient is still not had a bowel movement since admission. She'll be given a dose of lactulose. Her abdominal abdomen is more distended and abdominal x-ray will be ordered. She is also more wheezy and short of breath chest x-rays ordered nebulizer treatments of been changed to scheduled. She has been hypotensive creatinine is 1.07. Cardiology has ordered a fluid bolus. Patient denies any nausea or vomiting. Is complaining of some abdominal discomfort. Denies any chest pain. Does admit to having some shortness of breath and cough. 11/30/2017 patient reports improvement in her shortness of breath. His was able to have a bowel movement. Acute abdominal series does report correlate for right-sided pneumonia and moderate fecal stasis and retained contrast. Patient given a dose of lactulose yesterday. She was able to have a bowel movement. Still reporting some abdominal pain in that right upper quadrant. No nausea or vomiting. Abdominal distention has shown some improvement. Stool for C. diff was negative. Repeat urinalysis negative. Patient was reevaluated by GI service they are still reporting no need for endoscopy. And also seen by infectious disease there is no new infection recommending no antibiotics. Patient has been cleared for discharge by both pulmonary and cardiology service. Patient did have a heart rate up into the 150s but she is mostly staying in the 90s to low 100s. Case discussed with cardiology. They are aware and no new changes in medications. Also her pain could be contributing to her elevated heart rate. Morphine will be discontinued today it is making patient very sleepy and lethargic. We will place her on Jackson. Abdominal discomfort may be more related to constipation. On 12/01/2017 patient is alert and oriented 3 shortness of breath has improved and she has been having bowel movements. She was cleared for discharge by pulmonary and by cardiology. Gastroenterology recommending no intervention at this time. C. diff toxin was negative, during this admission dose of metoprolol was increased from 25 mg twice daily to 50 mg twice daily and heart rate is better controlled. Patient will be discharged home today she will follow-up with her primary care physician Dr. Lolita Fraga. O2 sat duration on room air was low after ambulation, arrangements are being made for home oxygen, she will also have a nebulizer and albuterol updraft solution 4 times daily as needed she would be continued on Spiriva and Breo inhalers. Patient Condition at Discharge: Fair Plan - Discharge Summary Discharge Rx Participant: Yes New Discharge Prescriptions: New Albuterol Nebulized [Ventolin Nebulized] 2.5 mg INHALATION RT-QID nebu Docusate [Colace] 100 mg PO BID cap Metoprolol Tartrate [Lopressor] 50 mg PO TID tab Nitroglycerin Sl Tabs [Nitrostat] 0.4 mg SUBLINGUAL Q5M PRN tab PRN Reason: Chest Pain Polyethylene Glycol 3350 [Miralax] 17 gm PO HS powd.pack Continue PARoxetine HCL 30 mg PO HS OXcarbazepine [Trileptal] 150 mg PO HS PARoxetine HCL [Paxil] 30 mg PO DAILY Melatonin 3 mg PO HS Potassium Chloride [Klor-Con 10] 10 meq PO DAILY Pantoprazole Sodium [Protonix] 40 mg PO DAILY Montelukast [Singulair] 10 mg PO HS Magnesium Oxide [Mag-Ox] 400 mg PO DAILY Lurasidone HCl [Latuda] 20 mg PO DAILY Levothyroxine Sodium [Synthroid] 100 mcg PO DAILY Furosemide [Lasix] 40 mg PO DAILY Ferrous Sulfate [Iron (65 MG Elemental)] 325 mg PO DAILY Clopidogrel Bisulfate [Plavix] 75 mg PO DAILY Calcium Polycarbophil [Fibercon] 1,250 mg PO DAILY Atorvastatin Calcium [Lipitor] 20 mg PO DAILY Fluticasone/Vilanterol [Breo Ellipta 100-25 Mcg Inhaler] 1 puff INHALATION RT -DAILY Tiotropium Aurelia [Spiriva] 1 cap INHALATION RT-DAILY Rivaroxaban [Xarelto] 15 mg PO W/SUPPER #30 tab Multivitamins, Thera [Multivitamin (formulary)] 1 each PO DAILY@1200 #30 tab predniSONE 0 mg PO DIRECTED #12 tab Discontinued Metoprolol Tartrate [Lopressor] 25 mg PO BID Moxifloxacin HCl 400 mg PO DAILY #14 tab Discharge Medication List PARoxetine HCL 30 mg PO HS 07/02/14 [History] OXcarbazepine [Trileptal] 150 mg PO HS 11/04/14 [History] Melatonin 3 mg PO HS 03/05/16 [History] PARoxetine HCL [Paxil] 30 mg PO DAILY 03/05/16 [History] Atorvastatin Calcium [Lipitor] 20 mg PO DAILY 06/13/17 [History] Calcium Polycarbophil [Fibercon] 1,250 mg PO DAILY 06/13/17 [History] Clopidogrel Bisulfate [Plavix] 75 mg PO DAILY 06/13/17 [History] Ferrous Sulfate [Iron (65 MG Elemental)] 325 mg PO DAILY 06/13/17 [History] Furosemide [Lasix] 40 mg PO DAILY 06/13/17 [History] Levothyroxine Sodium [Synthroid] 100 mcg PO DAILY 06/13/17 [History] Lurasidone HCl [Latuda] 20 mg PO DAILY 06/13/17 [History] Magnesium Oxide [Mag-Ox] 400 mg PO DAILY 06/13/17 [History] Montelukast [Singulair] 10 mg PO HS 06/13/17 [History] Pantoprazole Sodium [Protonix] 40 mg PO DAILY 06/13/17 [History] Potassium Chloride [Klor-Con 10] 10 meq PO DAILY 06/13/17 [History] Fluticasone/Vilanterol [Breo Ellipta 100-25 Mcg Inhaler] 1 puff INHALATION RT- DAILY 06/14/17 [History] Tiotropium Aurelia [Spiriva] 1 cap INHALATION RT-DAILY 06/14/17 [History] Rivaroxaban [Xarelto] 15 mg PO W/SUPPER #30 tab 06/16/17 [Rx] Multivitamins, Thera [Multivitamin (formulary)] 1 each PO DAILY@1200 #30 tab [Rx] predniSONE 0 mg PO DIRECTED #12 tab 11/15/17 [Rx] Albuterol Nebulized [Ventolin Nebulized] 2.5 mg INHALATION RT-QID nebu [Rx] Docusate [Colace] 100 mg PO BID cap 12/01/17 [Rx] Metoprolol Tartrate [Lopressor] 50 mg PO TID tab 12/01/17 [Rx] Nitroglycerin Sl Tabs [Nitrostat] 0.4 mg SUBLINGUAL Q5M PRN tab 12/01/17 [Rx] Polyethylene Glycol 3350 [Miralax] 17 gm PO HS powd.pack 12/01/17 [Rx] Follow up Appointment(s)/Referral(s): Florinda Hutchinson DO [Doctor of Osteopathic Medicine] - 1 Week Lolita Fraga DO [Primary Care Provider] - 1-2 days Activity/Diet/Wound Care/Special Instructions: Please call [facility] #[phone] to schedule an appointment with Respiratory Therapist in order to obtain an oxygen conserving device.
[2017-12-01] MEDS: RIVAROXABAN 15 MG TAB PO SCH (17:17)
[2017-12-01 18:27] VITALS: BP 104/68; TEMP 98.1
--- NOTE | 2017-12-02 08:06 | CDI ---
Last Revision, July 2017 Documentation Clarification Form Date: December 02, 2017 From: Marycruz Bray Admit Date: 11/25/2017 12:42:00 AM Patient Name: Kathy Mckeon Visit Number: [id number] Discharge Date: 12/01/17 ATTENTION: The Clinical Documentation Specialists (CDI) and [facility] Coding Staff appreciate your assistance in clarifying documentation. Please respond to the clarification below the line at the bottom and electronically sign. The CDI & [facility] Coding staff will review the response and follow-up if needed. Please note: Queries are made part of the Legal Health Record. If you have any questions, please contact the author of this message via ITS. Dr. Abelardo Kelly, History/Risk Factors: A-FIB, CAD, cancer, COPD, CVA/TIA, GERD, hyperlipidemia, memory impairment, DE, OA, sleep apnea, thyroid disorder, vascular disorder, vascular dementia, cath with stents, smoker, home 02, multiple drug resistant organisms, Presented this admission with A-Fib. Recent visit with UTI. Clinical Indicators: WBC/Left on admission: 11.6 Lactic acid: on admission 1.5 Vitals signs on admission: T 100.3 , P 108, R 20, 78/49, 89% RA Treatment: ID Consult: ID Antibiotics: required multiple different antibiotics, no antibiotics this visit Allergy: Penicillins V Bolus: x 2 In your professional opinion, please clarify if these findings signify one of the following conditions, whether the condition is POA, and cause, if known: Sepsis ruled in Sepsis ruled out Other, please specify Unable to determine Present on Admission: Yes No Identify the (suspected) organism Please continue to document in your progress notes, under the line below and/or in the discharge summary in order to capture severity of illness and risk of mortality. Include clinical findings that support your diagnosis. sepsis ruled out MTDD
--- NOTE | 2017-12-03 11:12 | CDI ---
Last Revision, July 2017 Documentation Clarification Form Date: 12/03/17 From: Iram Kar Mayela Brooks, Gas Meter Reader between 8:30 am & 5 pm [place] Admit Date: 11/25/2017 12:42:00 AM Patient Name: Kathy Mckeon Visit Number: [id number] Discharge Date: 12/01/17 ATTENTION: The Clinical Documentation Specialists (CDI) and [facility] Coding Staff appreciate your assistance in clarifying documentation. Please respond to the clarification below the line at the bottom and electronically sign. The CDI & [facility] Coding staff will review the response and follow-up if needed. Please note: Queries are made part of the Legal Health Record. If you have any questions, please contact the author of this message via ITS. Dr. Florinda Hutchinson Chronic persistent asthma is documented in the progress notes on 11/29, 11/30 & . Patient history/risk factors: COPD, CHANDU, A fib Medication: Breo Ellipta, prednisone 10 mg as directed In your professional opinion, can you please further specify the following, if known? Severity: Mild persistent Moderate persistent Severe persistent Other, please specify ____ Unable to determine Please continue to document in your progress notes and discharge summary in order to capture severity of illness and risk of mortality. Include clinical findings that support your diagnosis. moderate to severe persistant asthma MTDD
--- NOTE | 2017-12-03 11:19 | CDI ---
Last Revision, July 2017 Documentation Clarification Form Date: 12/03/17 From: Iram Kar Mayela Brooks, Wire Stripper between 8:30 am & 5 pm [place] Admit Date: 11/25/2017 12:42:00 AM Patient Name: Kathy Mckeon Visit Number: [id number] Discharge Date: 12/01/17 ATTENTION: The Clinical Documentation Specialists (CDI) and [facility] Coding Staff appreciate your assistance in clarifying documentation. Please respond to the clarification below the line at the bottom and electronically sign. The CDI & [facility] Coding staff will review the response and follow-up if needed. Please note: Queries are made part of the Legal Health Record. If you have any questions, please contact the author of this message via ITS. Dr. Connor Bernal Patient has a history of CHF. CXR 11/24: The cardiac sihouette is mildly enlarges, unchanged. The patient received home medication Lasix 40 mg po daily. In your professional opinion, can you please clarify the acuity and type of CHF if known? Chronic Systolic Heart Failure: Chronic Diastolic Heart Failure: Chroninc Systolic & Diastolic Heart Failure: Unable to Determine Other, please specify Please continue to document in your progress notes and discharge summary in order to capture severity of illness and risk of mortality. Include clinical findings that support your diagnosis. MTDD
--- NOTE | 2017-12-03 11:29 | CDI ---
Last Revision, July 2017 Documentation Clarification Form Date: 12/03/17 From: Iram Kar Mayela Brooks, Watch Hairspring Assembler between 8:30 am & 5 pm [place] Admit Date: 11/25/2017 12:42:00 AM Patient Name: Kathy Mckeon Visit Number: [id number] Discharge Date:12/01/17 ATTENTION: The Clinical Documentation Specialists (CDI) and [facility] Coding Staff appreciate your assistance in clarifying documentation. Please respond to the clarification below the line at the bottom and electronically sign. The CDI & [facility] Coding staff will review the response and follow-up if needed. Please note: Queries are made part of the Legal Health Record. If you have any questions, please contact the author of this message via ITS. Dr. Florinda Hutchinson Per ED record, PNs 11/29, 11/30 & 12/01 patient has chronic hypoxia and requires supplemental oxygen at home at 2L. She has COPD and persistent asthma. O2 sat 89 in ED. on room air. In your professional opinion, can you please clarify? Chronic hypoxic respiratory failure Chronic hypercapnia respiratory failure Chronic hypercarbia respiratory failure Hypocia Other, please specify Unable to determine Please continue to document in your progress notes and discharge summary in order to capture severity of illness and risk of mortality. Include clinical findings that support your diagnosis. acute on chronic hypoxic resp failure MTDD
--- NOTE | 2017-12-06 12:00 | CDI ---
Last Revision, July 2017 Documentation Clarification Form Date: 12/05/17 From: Iram Kar Mayela Brooks, [employer] between 8:30 am & 5 pm [place] Admit Date: 11/25/2017 12:42:00 AM Patient Name: Kathy Mckeon Visit Number: [id number] Discharge Date: 12/01/17 ATTENTION: The Clinical Documentation Specialists (CDI) and [facility] Coding Staff appreciate your assistance in clarifying documentation. Please respond to the clarification below the line at the bottom and electronically sign. The CDI & [facility] Coding staff will review the response and follow-up if needed. Please note: Queries are made part of the Legal Health Record. If you have any questions, please contact the author of this message via ITS. Dr. Connor Bernal Patient has a history of CHF. CXR 11/24: The cardiac sihouette is mildly enlarges, unchanged. The patient received home medication Lasix 40 mg po daily. In your professional opinion, can you please clarify the acuity and type of CHF if known? Chronic Systolic Heart Failure: Chronic Diastolic Heart Failure: Chronic Systolic & Diastolic Heart Failure: Unable to Determine Other, please specify Please continue to document in your progress notes and discharge summary in order to capture severity of illness and risk of mortality. Include clinical findings that support your diagnosis. MTDD
--- NOTE | 2017-12-08 07:29 | CDI ---
Last Revision, July 2017 Documentation Clarification Form Date: 12/08/17 From: Iram Kar Mayela Brooks, Restaurant Mgr between 8:30 am & 5 pm [place] Admit Date: 11/25/2017 12:42:00 AM Patient Name: Kathy Mckeon Visit Number: [id number] Discharge Date: 12/01/17 ATTENTION: The Clinical Documentation Specialists (CDI) and [facility] Coding Staff appreciate your assistance in clarifying documentation. Please respond to the clarification below the line at the bottom and electronically sign. The CDI & [facility] Coding staff will review the response and follow-up if needed. Please note: Queries are made part of the Legal Health Record. If you have any questions, please contact the author of this message via ITS. Dr. Abelardo Kelly Cachexia was documented in Dr Severino consult. History/Risk Factors: paroxysmal A fib, HTN w heart and CKD, CAD, severe persistent asthma Current Albumin: 3.2, 2.7, 2.6, 3.0, 2.9, 2.8 Current Total Protein: 5.6, 5.1, 4.8, 5.4, 5.2, 5.3 Current BMI: 28.3 She was on a heart healthy diet. In your professional opinion, can you please clarify if these findings signify one of the following conditions? Mild Protein-Calorie Malnutrition Moderate Protein-Calorie Malnutrition Severe Protein-Calorie Malnutrition Malnutrition, Unspecified Underweight Other condition, please specify Unable to determine Please continue to document in your progress notes and discharge summary in order to capture severity of illness and risk of mortality. Include clinical findings that support your diagnosis. ___ MTDD
--- NOTE | 2017-12-15 07:20 | CDI ---
Last Revision, July 2017 Documentation Clarification Form Date: 12/15/17 From: Iram Kar Mayela Brooks, Plate Corrector between 8:30 am & 5 pm [place] Admit Date: 11/25/2017 12:42:00 AM Patient Name: Kathy Mckeon Visit Number: [id number] Discharge Date: 12/01/17 ATTENTION: The Clinical Documentation Specialists (CDI) and [facility] Coding Staff appreciate your assistance in clarifying documentation. Please respond to the clarification below the line at the bottom and electronically sign. The CDI & [facility] Coding staff will review the response and follow-up if needed. Please note: Queries are made part of the Legal Health Record. If you have any questions, please contact the author of this message via ITS. Dr. Abelardo Kelly Cachexia was documented in Dr Severino consult. History/Risk Factors: paroxysmal A fib, HTN w heart and CKD, CAD, severe persistent asthma Current Albumin: 3.2, 2.7, 2.6, 3.0, 2.9, 2.8 Current Total Protein: 5.6, 5.1, 4.8, 5.4, 5.2, 5.3 Current BMI: 28.3 She was on a heart healthy diet. In your professional opinion, can you please clarify if these findings signify one of the following conditions? Mild Protein-Calorie Malnutrition Moderate Protein-Calorie Malnutrition Severe Protein-Calorie Malnutrition Malnutrition, Unspecified Underweight Other condition, please specify Unable to determine Please continue to document in your progress notes and discharge summary in order to capture severity of illness and risk of mortality. Include clinical findings that support your diagnosis. moderate protein calorie malnutrition MTDD
--- NOTE | 2017-12-15 07:25 | CDI ---
Last Revision, July 2017 Documentation Clarification Form Date: 12/15/17 From: Iram Kar Mayela Brooks, Circulation Representative between 8:30 am & 5 pm [place] Admit Date: 11/25/2017 12:42:00 AM Patient Name: Kathy Mckeon Visit Number: [id number] Discharge Date: 12/01/17 ATTENTION: The Clinical Documentation Specialists (CDI) and [facility] Coding Staff appreciate your assistance in clarifying documentation. Please respond to the clarification below the line at the bottom and electronically sign. The CDI & [facility] Coding staff will review the response and follow-up if needed. Please note: Queries are made part of the Legal Health Record. If you have any questions, please contact the author of this message via ITS. Dr. Connor Bernal Patient has a history of CHF. CXR 11/24: The cardiac silhouette is mildly enlarges, unchanged. The patient received home medication Lasix 40 mg po daily. In your professional opinion, can you please clarify the acuity and type of CHF if known? Chronic Systolic Heart Failure: Chronic Diastolic Heart Failure: Chronic Systolic & Diastolic Heart Failure: Unable to Determine Other, please specify Please continue to document in your progress notes and discharge summary in order to capture severity of illness and risk of mortality. Include clinical findings that support your diagnosis. Diastolic____ MTDD
== END 2017-12-01 18:55 | disposition home or self-care (01) | DRG 391 ==
LOC: EC 19:41 → 6SEL 11-25 00:42
PROVIDERS: ADMIT Internal Medicine; ATTEND Internal Medicine
DX: K52.9 Noninfective gastroenteritis and colitis, unspecified (principal); J96.21 Acute and chronic respiratory failure with hypoxia; N17.9 Acute kidney failure, unspecified; E44.0 Moderate protein-calorie malnutrition; R64 Cachexia; I13.0 Hypertensive heart and chronic kidney disease with heart failure and stage 1 through stage 4 chronic kidney disease, or unspecified chronic kidney disease; R18.8 Other ascites; J44.1 Chronic obstructive pulmonary disease with (acute) exacerbation; N39.0 Urinary tract infection, site not specified; I95.9 Hypotension, unspecified; I48.0 Paroxysmal atrial fibrillation; R16.0 Hepatomegaly, not elsewhere classified; I65.21 Occlusion and stenosis of right carotid artery; Z99.81 Dependence on supplemental oxygen; F01.50 Vascular dementia, unspecified severity, without behavioral disturbance, psychotic disturbance, mood disturbance, and anxiety; J45.50 Severe persistent asthma, uncomplicated; E86.0 Dehydration; I95.2 Hypotension due to drugs; N18.2 Chronic kidney disease, stage 2 (mild); I50.9 Heart failure, unspecified; T40.2X5A Adverse effect of other opioids, initial encounter; G25.81 Restless legs syndrome; R40.2143 Coma scale, eyes open, spontaneous, at hospital admission; R40.2363 Coma scale, best motor response, obeys commands, at hospital admission; R40.2253 Coma scale, best verbal response, oriented, at hospital admission; E78.5 Hyperlipidemia, unspecified; G50.0 Trigeminal neuralgia; I25.10 Atherosclerotic heart disease of native coronary artery without angina pectoris; I45.10 Unspecified right bundle-branch block; G47.33 Obstructive sleep apnea (adult) (pediatric); F31.9 Bipolar disorder, unspecified; F17.210 Nicotine dependence, cigarettes, uncomplicated; M19.91 Primary osteoarthritis, unspecified site; K21.9 Gastro-esophageal reflux disease without esophagitis; K57.90 Diverticulosis of intestine, part unspecified, without perforation or abscess without bleeding; I25.2 Old myocardial infarction; K58.1 Irritable bowel syndrome with constipation; J34.9 Unspecified disorder of nose and nasal sinuses; K44.9 Diaphragmatic hernia without obstruction or gangrene; Z79.2 Long term (current) use of antibiotics; Z79.01 Long term (current) use of anticoagulants; Z79.02 Long term (current) use of antithrombotics/antiplatelets; Z79.890 Hormone replacement therapy; Z79.51 Long term (current) use of inhaled steroids; Z79.52 Long term (current) use of systemic steroids; Z79.899 Other long term (current) drug therapy; Z86.73 Personal history of transient ischemic attack (TIA), and cerebral infarction without residual deficits; Z90.5 Acquired absence of kidney; Z85.528 Personal history of other malignant neoplasm of kidney; Z95.5 Presence of coronary angioplasty implant and graft; Z95.828 Presence of other vascular implants and grafts; Z90.710 Acquired absence of both cervix and uterus; Z71.6 Tobacco abuse counseling; Z90.49 Acquired absence of other specified parts of digestive tract; Z86.79 Personal history of other diseases of the circulatory system; Z87.440 Personal history of urinary (tract) infections; Z77.22 Contact with and (suspected) exposure to environmental tobacco smoke (acute) (chronic); Z88.0 Allergy status to penicillin; Z91.040 Latex allergy status; Z82.5 Family history of asthma and other chronic lower respiratory diseases; Z82.49 Family history of ischemic heart disease and other diseases of the circulatory system; Z82.3 Family history of stroke; Z83.3 Family history of diabetes mellitus; Z68.28 Body mass index [BMI] 28.0-28.9, adult
CPT/HCPCS: 36415; 71046; 74022; 74177; 76705; 80053; 80061; 81001; 81003; 82150; 82550; 82553; 83605; 83690; 84484; 85025; 85610; 85730; 87040; 87086; 87324; 87502; 93005; 93970; 94640; 94760; 96361; 96365; 96375; 99285

== ENCOUNTER 2017-12-02 00:40 | Inpatient (IN) | payer MEDICARE, OTHER ==
--- NOTE | 2017-12-02 01:26 | ED ---
General Adult HPI - General Chief complaint: Shortness of Breath Stated complaint: Dyspnea Time Seen by Provider: 12/02/17 00:59 Source: patient, family, RN notes reviewed Mode of arrival: ambulatory Limitations: altered mental status - History of Present Illness Initial comments: Patient is a pleasant 67-year-old female presenting to the emergency Department with daughter for dyspnea. Patient does have chronic dyspnea associated with COPD. Patient states symptoms are only mild at this time. Patient does not want a breathing treatment. Daughter is concerned that previously breathing treatments have exacerbated her atrial fibrillation. Patient was just discharged from the hospital with atrial fibrillation. Patient did have a bloody nose tonight that the daughter was concerned about also. Patient also complains of some abdominal discomfort however this is chronic secondary to her IBS and constipation. - Related Data Home Medications Medication Instructions Recorded Confirmed PARoxetine HCL 30 mg PO HS 07/02/14 11/24/17 OXcarbazepine [Trileptal] 150 mg PO HS 11/04/14 11/24/17 Melatonin 3 mg PO HS 03/05/16 11/24/17 PARoxetine HCL [Paxil] 30 mg PO DAILY 03/05/16 11/24/17 Atorvastatin Calcium [Lipitor] 20 mg PO DAILY 06/13/17 11/24/17 Calcium Polycarbophil [Fibercon] 1,250 mg PO DAILY 06/13/17 11/24/17 Clopidogrel Bisulfate [Plavix] 75 mg PO DAILY 06/13/17 11/24/17 Ferrous Sulfate [Iron (65 MG 325 mg PO DAILY 06/13/17 11/24/17 Elemental)] Furosemide [Lasix] 40 mg PO DAILY 06/13/17 11/24/17 Levothyroxine Sodium [Synthroid] 100 mcg PO DAILY 06/13/17 11/24/17 Lurasidone HCl [Latuda] 20 mg PO DAILY 06/13/17 11/24/17 Magnesium Oxide [Mag-Ox] 400 mg PO DAILY 06/13/17 11/24/17 Montelukast [Singulair] 10 mg PO HS 06/13/17 11/24/17 Pantoprazole Sodium [Protonix] 40 mg PO DAILY 06/13/17 11/24/17 Potassium Chloride [Klor-Con 10] 10 meq PO DAILY 06/13/17 11/24/17 Fluticasone/Vilanterol [Breo 1 puff INHALATION RT-DAILY 06/14/17 11/24/17 Ellipta 100-25 Mcg Inhaler] Tiotropium Hartsel [Spiriva] 1 cap INHALATION RT-DAILY 06/14/17 11/24/17 Previous Rx's Medication Instructions Recorded Rivaroxaban [Xarelto] 15 mg PO W/SUPPER #30 tab 06/16/17 Multivitamins, Thera [Multivitamin 1 each PO DAILY@1200 #30 tab 11/15/17 (formulary)] predniSONE 0 mg PO DIRECTED #12 tab 11/15/17 Albuterol Nebulized [Ventolin 2.5 mg INHALATION RT-QID nebu 12/01/17 Nebulized] Docusate [Colace] 100 mg PO BID cap 12/01/17 Metoprolol Tartrate [Lopressor] 50 mg PO TID tab 12/01/17 Nitroglycerin Sl Tabs [Nitrostat] 0.4 mg SUBLINGUAL Q5M PRN tab 12/01/17 Polyethylene Glycol 3350 [Miralax] 17 gm PO HS powd.pack 12/01/17 Allergies Allergy/AdvReac Type Severity Reaction Status Date / Time latex Allergy Rash/Hives Verified 11/24/17 20:05 Penicillins Allergy Unknown Verified 11/24/17 20:05 Childhood Review of Systems ROS Statement: Those systems with pertinent positive or pertinent negative responses have been documented in the HPI. ROS Other: All systems not noted in ROS Statement are negative. Constitutional: Denies: fever Eyes: Denies: eye pain ENT: Reports: epistaxis (Resolved) Respiratory: Reports: dyspnea (Chronic, mild) Cardiovascular: Reports: palpitations Endocrine: Denies: fatigue Gastrointestinal: Reports: abdominal pain (Chronic) Genitourinary: Denies: dysuria Musculoskeletal: Denies: back pain Skin: Denies: rash Neurological: Denies: weakness Past Medical History Past Medical History: Atrial Fibrillation, Coronary Artery Disease (CAD), Cancer , COPD, CVA/TIA, GERD/Reflux, Hyperlipidemia, Memory Impairment, Myocardial Infarction ([place]), Osteoarthritis (OA), Sleep Apnea/CPAP/BIPAP, Thyroid Disorder, Vascular Disorder Additional Past Medical History / Comment(s): 11/28/14 Pt presented to floor s/p PTCA with stenting by Dr. Bernal today. Other HX: VASCULAR DEMENTIA. NO CPAP/ BIPAP. Hypothyroidism, RESTLESS LEG, right internal carotid artery completely occluded. 50-69% stenosis in the left internal carotid artery done, hx kidney cancer, uses O2 PRN, diverticulosis, IBS, PVD, cdiff 2013 Last Myocardial Infarction Date:: 11/03/14 History of Any Multi-Drug Resistant Organisms: None Reported Date of last positivie culture/infection: None Past Surgical History: Cholecystectomy, Ear Surgery, Heart Catheterization With Stent, Hysterectomy, Orthopedic Surgery Additional Past Surgical History / Comment(s): 11/28/14 PTCA with stent, left CAROTID ENDARTERECTOMY. RIGHT NEPHRECTOMY. BILATERAL STENTS IN LOWER EXTREMITIES , L elbow surgery, R ear surgery for blockage. ankle Past Anesthesia/Blood Transfusion Reactions: Motion Sickness Date of Last Stent Placement:: 10/2014 Past Psychological History: Bipolar Smoking Status: Former smoker Past Alcohol Use History: None Reported Past Drug Use History: None Reported - Past Family History Mother Family Medical History: COPD Additional Family Medical History / Comment(s): Mother is . She from respiratory failure. Father Family Medical History: Coronary Artery Disease (CAD), Myocardial Infarction ([place] ) Additional Family Medical History / Comment(s): Father had gout General Exam Limitations: altered mental status General appearance: alert, in no apparent distress Head exam: Present: atraumatic Eye exam: Present: normal appearance, PERRL ENT exam: Present: other (Dried blood right nares) Neck exam: Present: normal inspection Respiratory exam: Present: wheezes (Mild expiratory wheeze) Cardiovascular Exam: Present: tachycardia, irregular rhythm GI/Abdominal exam: Present: soft. Absent: tenderness Extremities exam: Present: normal inspection Neurological exam: Present: alert Psychiatric exam: Present: flat affect Skin exam: Present: normal color Course Vital Signs 12/02/17 12/02/17 12/02/17 00:44 01:55 03:24 Temperature 97.9 F Pulse Rate 122 H 103 H 102 H Respiratory 20 20 Rate Blood Pressure 103/63 101/79 126/94 O2 Sat by Pulse 77 L 94 L 97 Oximetry - Reevaluation(s) Reevaluation #1: 12/02/17 04:[address] Kelly who will admit for [facility]. EKG Findings - EKG Comments: EKG Findings:: A. fib with RVR, rate 113. QRS 1:30. QT 334. QTC 458. Normal axis. Right bundle branch block. No acute ST change. Medical Decision Making - Medical Decision Making Patient reevaluated and unchanged. Heart rate remains between 101 -140. Patient and family updated. Daughter does not feel comfortable with discharge of patient. He would like patient to have ENT procedure done well in the hospital. sHe states they were previously evaluated for placement however patient did not qualify. - Lab Data Result diagrams: 12/02/17 01:03 12/02/17 01:03 Lab Results 12/02/17 12/02/17 12/02/17 Range/Units 01:03 01:03 01:03 WBC 6.7 (3.8-10.6) k/uL RBC 4.54 (3.80-5.40) m/uL Hgb 11.6 (11.4-16.0) gm/dL Hct 37.8 (34.0-46.0) % MCV 83.1 (80.0-100.0) fL MCH 25.6 (25.0-35.0) pg MCHC 30.8 L (31.0-37.0) g/dL RDW 17.3 H (11.5-15.5) % Plt Count 303 (150-450) k/uL Neutrophils % 65 % Lymphocytes % 24 % Monocytes % 6 % Eosinophils % 2 % Basophils % 0 % Neutrophils # 4.3 (1.3-7.7) k/uL Lymphocytes # 1.6 (1.0-4.8) k/uL Monocytes # 0.4 (0-1.0) k/uL Eosinophils # 0.2 (0-0.7) k/uL Basophils # 0.0 (0-0.2) k/uL Hypochromasia Slight Anisocytosis Slight PT (9.0-12.0) sec INR (<1.2) APTT (22.0-30.0) sec Sodium 139 (137-145) mmol/L Potassium 4.2 (3.5-5.1) mmol/L Chloride 99 (98-107) mmol/L Carbon Dioxide 28 (22-30) mmol/L Anion Gap 12 mmol/L BUN 14 (7-17) mg/dL Creatinine 1.00 (0.52-1.04) mg/dL Est GFR (CKD-EPI)AfAm 68 (>60 ml/min/1.73 sqM) Est GFR (CKD-EPI)NonAf 59 (>60 ml/min/1.73 sqM) Glucose 93 (74-99) mg/dL Calcium 9.0 (8.4-10.2) mg/dL Magnesium 1.9 (1.6-2.3) mg/dL Total Bilirubin 0.6 (0.2-1.3) mg/dL AST 33 (14-36) U/L ALT 44 (9-52) U/L Alkaline Phosphatase 152 H (38-126) U/L Total Creatine Kinase 21 L (30-135) U/L CK-MB (CK-2) 0.6 (0.0-2.4) ng/mL CK-MB (CK-2) Rel Index 2.9 Troponin I <0.012 (0.000-0.034) ng/mL NT-Pro-B Natriuret Pep pg/mL Total Protein 5.7 L (6.3-8.2) g/dL Albumin 3.2 L (3.5-5.0) g/dL TSH 4.660 (0.465-4.680) mIU/L Free T4 1.53 (0.78-2.19) ng/dL Free T3 pg/mL 2.3 L (2.8-5.3) pg/ml 12/02/17 12/02/17 Range/Units 01:03 01:03 WBC (3.8-10.6) k/uL RBC (3.80-5.40) m/uL Hgb (11.4-16.0) gm/dL Hct (34.0-46.0) % MCV (80.0-100.0) fL MCH (25.0-35.0) pg MCHC (31.0-37.0) g/dL RDW (11.5-15.5) % Plt Count (150-450) k/uL Neutrophils % % Lymphocytes % % Monocytes % % Eosinophils % % Basophils % % Neutrophils # (1.3-7.7) k/uL Lymphocytes # (1.0-4.8) k/uL Monocytes # (0-1.0) k/uL Eosinophils # (0-0.7) k/uL Basophils # (0-0.2) k/uL Hypochromasia Anisocytosis PT 14.7 H (9.0-12.0) sec INR 1.6 H (<1.2) APTT 28.2 (22.0-30.0) sec Sodium (137-145) mmol/L Potassium (3.5-5.1) mmol/L Chloride (98-107) mmol/L Carbon Dioxide (22-30) mmol/L Anion Gap mmol/L BUN (7-17) mg/dL Creatinine (0.52-1.04) mg/dL Est GFR (CKD-EPI)AfAm (>60 ml/min/1.73 sqM) Est GFR (CKD-EPI)NonAf (>60 ml/min/1.73 sqM) Glucose (74-99) mg/dL Calcium (8.4-10.2) mg/dL Magnesium (1.6-2.3) mg/dL Total Bilirubin (0.2-1.3) mg/dL AST (14-36) U/L ALT (9-52) U/L Alkaline Phosphatase (38-126) U/L Total Creatine Kinase (30-135) U/L CK-MB (CK-2) (0.0-2.4) ng/mL CK-MB (CK-2) Rel Index Troponin I (0.000-0.034) ng/mL NT-Pro-B Natriuret Pep 9340 pg/mL Total Protein (6.3-8.2) g/dL Albumin (3.5-5.0) g/dL TSH (0.465-4.680) mIU/L Free T4 (0.78-2.19) ng/dL Free T3 pg/mL (2.8-5.3) pg/ml - Radiology Data Radiology results: image reviewed (Chest x-ray shows no significant change from previous. Persistent comments of lung markings. Abdominal x-ray shows increased stool burden) Disposition Clinical Impression: Congestive heart failure, Atrial fibrillation Disposition: ADMITTED IP TO THIS HOSP Referrals: Lolita Fraga DO [Primary Care Provider] - 1-2 days
[2017-12-02 01:32] LABS: Anisocytosis Slight; Basophils % (A) 0 %; Eosinophils # (A) 0.2 k/uL (0-0.7); Eosinophils % (A) 2 %; HCT 37.8 % (34.0-46.0); HGB 11.6 gm/dL (11.4-16.0); Hypochromasia Slight; Lymphocytes # (A) 1.6 k/uL (1.0-4.8); Lymphocytes % (A) 24 %; MCH 25.6 pg (25.0-35.0); MCHC 30.8 g/dL (31.0-37.0); MCV 83.1 fL (80.0-100.0); Mean Platelet Volume 7.5; Monocytes # (A) 0.4 k/uL (0-1.0); Monocytes % (A) 6 %; Neutrophils # (A) 4.3 k/uL (1.3-7.7); Neutrophils % (A) 65 %; Platelet Count 303 k/uL (150-450); RBC 4.54 m/uL (3.80-5.40); RDW 17.3 % (11.5-15.5); WBC 6.7 k/uL (3.8-10.6)
[2017-12-02 01:41] LABS: Albumin 3.2 g/dL (3.5-5.0); Magnesium 1.9 mg/dL (1.6-2.3); Potassium 4.2 mmol/L (3.5-5.1); Total Bilirubin 0.6 mg/dL (0.2-1.3); Total Protein 5.7 g/dL (6.3-8.2)
[2017-12-02 01:46] LABS: INR 1.6 (<1.2); Partial Thromboplastin Time 28.2 sec (22.0-30.0); Prothrombin Time 14.7 sec (9.0-12.0)
--- NOTE | 2017-12-02 01:54 | XR ---
EXAM: XR Abdomen, 2 Views CLINICAL HISTORY: Reason: Pain TECHNIQUE: Frontal view of the abdomen/pelvis with upright view of the abdomen. COMPARISON: No relevant prior studies available. FINDINGS: Intraperitoneal space: No free air. Gastrointestinal tract: Marked amount of stool noted throughout the colon. No evidence for ileus or obstruction. Bones/joints: Unremarkable. IMPRESSION: Marked amount of stool in the colon otherwise unremarkable abdomen film
[2017-12-02 01:55] LABS: Creatine Kinase 21 U/L (30-135)
[2017-12-02 01:58] LABS: T4, Free (Free Thyroxine) 1.53 ng/dL (0.78-2.19)
--- NOTE | 2017-12-02 02:00 | XR ---
EXAM: XR Chest, 2 Views CLINICAL HISTORY: dysrhythmia TECHNIQUE: Frontal and lateral views of the chest. COMPARISON: 11/29/2017 FINDINGS: Lungs: Persistent prominence of the lung markings bilaterally with no significant interval change compared to the prior study. Pleural space: Possibility of a small effusion on the lateral projection cannot be excluded. Heart: Unremarkable. No cardiomegaly. Mediastinum: Unremarkable. Bones/joints: Unremarkable. IMPRESSION: No significant interval change compared to prior study
[2017-12-02 02:08] LABS: Creatine Kinase MB 0.6 ng/mL (0.0-2.4); Troponin I <0.012 ng/mL (0.000-0.034)
[2017-12-02] MEDS ORDERED: DILTIAZEM 50 MG in SODIUM CHLORIDE 0.9% 40 ML IV ONE (04:21)
[2017-12-02] MEDS ORDERED: ASPIRIN 325 MG TAB PO STA (04:22)
[2017-12-02] MEDS ORDERED: LACTULOSE 20 GM/30 ML CUP PO ONE (04:24)
[2017-12-02] MEDS ORDERED: FUROSEMIDE 10 MG/ML 4 ML VIAL IV SCH (04:30)
[2017-12-02] MEDS ORDERED: LORazepam 2 MG/ML INJ IV STA (05:05)
[2017-12-02] MEDS ORDERED: IPRATROPIUM-ALBUTEROL 3 ML NEB INHALATION STA (05:19)
[2017-12-02] MEDS ORDERED: methylPREDNISolone SOD SUCCI 125 MG/2 ML VIAL IV STA (05:19)
[2017-12-02] MEDS ORDERED: MIDAZOLAM (PF) 1 MG/ML 5 ML VIAL IV STA (05:54)
[2017-12-02] MEDS ORDERED: SUCCINYLCHOLINE CHLORIDE VIAL 200 MG/10 ML VIAL IV STA (05:55)
[2017-12-02] MEDS ORDERED: IPRATROPIUM-ALBUTEROL 3 ML NEB INHALATION PRN (05:59)
[2017-12-02] MEDS ORDERED: LORazepam 2 MG/ML INJ IV PRN (05:59)
[2017-12-02] MEDS ORDERED: PROPOFOL 1,000 MG in EMPTY BAG 1 BAG IV SCH (06:00)
--- NOTE | 2017-12-02 06:02 | XR ---
EXAMINATION TYPE: XR chest 1V portable DATE OF EXAM: 12/02/2017 CLINICAL HISTORY: Shortness of breath. TECHNIQUE: Single AP portable frontal upright view of the chest is obtained. COMPARISON: Chest x-ray from earlier today and older studies. FINDINGS: There is persistent cardiomegaly with atherosclerotic thoracic aorta. There are persistent reticular interstitial changes bilaterally with increasing bilateral central opacities noted. No larg e pleural effusion or pneumothorax is seen bilaterally. Visualized osseous structures remain intact. IMPRESSION: Chronic interstitial parenchymal fibrosis and cardiomegaly with new bilateral central dinorah ma and/or infiltrates.
--- NOTE | 2017-12-02 06:14 | ED ---
Medical Decision Making - Medical Decision Making Patient had fairly rapid decompensation in the emergency department. Patient had decreased air exchange and wheezing. Repeat chest x-ray was concerning for pulmonary edema. Patient became more drowsy. Concern for respiratory failure and patient was intubated. Dr. Ramirez has been paged for critical care consult. - Lab Data Result diagrams: 12/02/17 01:03 12/02/17 01:03 Lab Results 12/02/17 12/02/17 12/02/17 Range/Units 01:03 01:03 01:03 WBC 6.7 (3.8-10.6) k/uL RBC 4.54 (3.80-5.40) m/uL Hgb 11.6 (11.4-16.0) gm/dL Hct 37.8 (34.0-46.0) % MCV 83.1 (80.0-100.0) fL MCH 25.6 (25.0-35.0) pg MCHC 30.8 L (31.0-37.0) g/dL RDW 17.3 H (11.5-15.5) % Plt Count 303 (150-450) k/uL Neutrophils % 65 % Lymphocytes % 24 % Monocytes % 6 % Eosinophils % 2 % Basophils % 0 % Neutrophils # 4.3 (1.3-7.7) k/uL Lymphocytes # 1.6 (1.0-4.8) k/uL Monocytes # 0.4 (0-1.0) k/uL Eosinophils # 0.2 (0-0.7) k/uL Basophils # 0.0 (0-0.2) k/uL Hypochromasia Slight Anisocytosis Slight PT (9.0-12.0) sec INR (<1.2) APTT (22.0-30.0) sec Sodium 139 (137-145) mmol/L Potassium 4.2 (3.5-5.1) mmol/L Chloride 99 (98-107) mmol/L Carbon Dioxide 28 (22-30) mmol/L Anion Gap 12 mmol/L BUN 14 (7-17) mg/dL Creatinine 1.00 (0.52-1.04) mg/dL Est GFR (CKD-EPI)AfAm 68 (>60 ml/min/1.73 sqM) Est GFR (CKD-EPI)NonAf 59 (>60 ml/min/1.73 sqM) Glucose 93 (74-99) mg/dL Calcium 9.0 (8.4-10.2) mg/dL Magnesium 1.9 (1.6-2.3) mg/dL Total Bilirubin 0.6 (0.2-1.3) mg/dL AST 33 (14-36) U/L ALT 44 (9-52) U/L Alkaline Phosphatase 152 H (38-126) U/L Total Creatine Kinase 21 L (30-135) U/L CK-MB (CK-2) 0.6 (0.0-2.4) ng/mL CK-MB (CK-2) Rel Index 2.9 Troponin I <0.012 (0.000-0.034) ng/mL NT-Pro-B Natriuret Pep pg/mL Total Protein 5.7 L (6.3-8.2) g/dL Albumin 3.2 L (3.5-5.0) g/dL TSH 4.660 (0.465-4.680) mIU/L Free T4 1.53 (0.78-2.19) ng/dL Free T3 pg/mL 2.3 L (2.8-5.3) pg/ml 12/02/17 12/02/17 Range/Units 01:03 01:03 WBC (3.8-10.6) k/uL RBC (3.80-5.40) m/uL Hgb (11.4-16.0) gm/dL Hct (34.0-46.0) % MCV (80.0-100.0) fL MCH (25.0-35.0) pg MCHC (31.0-37.0) g/dL RDW (11.5-15.5) % Plt Count (150-450) k/uL Neutrophils % % Lymphocytes % % Monocytes % % Eosinophils % % Basophils % % Neutrophils # (1.3-7.7) k/uL Lymphocytes # (1.0-4.8) k/uL Monocytes # (0-1.0) k/uL Eosinophils # (0-0.7) k/uL Basophils # (0-0.2) k/uL Hypochromasia Anisocytosis PT 14.7 H (9.0-12.0) sec INR 1.6 H (<1.2) APTT 28.2 (22.0-30.0) sec Sodium (137-145) mmol/L Potassium (3.5-5.1) mmol/L Chloride (98-107) mmol/L Carbon Dioxide (22-30) mmol/L Anion Gap mmol/L BUN (7-17) mg/dL Creatinine (0.52-1.04) mg/dL Est GFR (CKD-EPI)AfAm (>60 ml/min/1.73 sqM) Est GFR (CKD-EPI)NonAf (>60 ml/min/1.73 sqM) Glucose (74-99) mg/dL Calcium (8.4-10.2) mg/dL Magnesium (1.6-2.3) mg/dL Total Bilirubin (0.2-1.3) mg/dL AST (14-36) U/L ALT (9-52) U/L Alkaline Phosphatase (38-126) U/L Total Creatine Kinase (30-135) U/L CK-MB (CK-2) (0.0-2.4) ng/mL CK-MB (CK-2) Rel Index Troponin I (0.000-0.034) ng/mL NT-Pro-B Natriuret Pep 9340 pg/mL Total Protein (6.3-8.2) g/dL Albumin (3.5-5.0) g/dL TSH (0.465-4.680) mIU/L Free T4 (0.78-2.19) ng/dL Free T3 pg/mL (2.8-5.3) pg/ml Critical Care Time Critical Care Time: Yes Total Critical Care Time: 32 Disposition Clinical Impression: Congestive heart failure, Atrial fibrillation, Acute respiratory failure, Acute pulmonary edema Disposition: ADMITTED IP TO THIS [facility] Condition: Critical
--- NOTE | 2017-12-02 06:16 | XR ---
EXAMINATION TYPE: XR chest 1V portable DATE OF EXAM: 12/02/2017 CLINICAL HISTORY: ET and NG tube placement TECHNIQUE: Single AP portable upright view of the chest is obtained. COMPARISON: Chest x-ray from earlier today and older studies FINDINGS: There is new endotracheal tube with tip at superior aortic knob level, approximately 4 cm above the farhat. There is new orogastric tube projecting below the left hemidiaphragm. There is persistent cardiomegaly with atherosclerotic thoracic aorta. There is reticular interstitial changes with increased central opacity and increased interstitial markings. No large pleural effusio n or pneumothorax is seen bilaterally. Osseous structures are intact. IMPRESSION: 1. New ET and OGT are satisfactory in position. 2. Correlate for CHF exacerbation on background of chronic parenchymal fibrosis as there is cardiomeg gonzalo with suspected new interstitial edema and bilateral central alveolar edema and/or infiltrates. No significant change from studies earlier today but increased alveolar and interstitial markings from older studies is noted.
--- NOTE | 2017-12-02 06:21 | ED ---
Medical Decision Making - Lab Data Result diagrams: 12/02/17 01:03 12/02/17 01:03 Lab Results 12/02/17 12/02/17 12/02/17 Range/Units 01:03 01:03 01:03 WBC 6.7 (3.8-10.6) k/uL RBC 4.54 (3.80-5.40) m/uL Hgb 11.6 (11.4-16.0) gm/dL Hct 37.8 (34.0-46.0) % MCV 83.1 (80.0-100.0) fL MCH 25.6 (25.0-35.0) pg MCHC 30.8 L (31.0-37.0) g/dL RDW 17.3 H (11.5-15.5) % Plt Count 303 (150-450) k/uL Neutrophils % 65 % Lymphocytes % 24 % Monocytes % 6 % Eosinophils % 2 % Basophils % 0 % Neutrophils # 4.3 (1.3-7.7) k/uL Lymphocytes # 1.6 (1.0-4.8) k/uL Monocytes # 0.4 (0-1.0) k/uL Eosinophils # 0.2 (0-0.7) k/uL Basophils # 0.0 (0-0.2) k/uL Hypochromasia Slight Anisocytosis Slight PT (9.0-12.0) sec INR (<1.2) APTT (22.0-30.0) sec Sodium 139 (137-145) mmol/L Potassium 4.2 (3.5-5.1) mmol/L Chloride 99 (98-107) mmol/L Carbon Dioxide 28 (22-30) mmol/L Anion Gap 12 mmol/L BUN 14 (7-17) mg/dL Creatinine 1.00 (0.52-1.04) mg/dL Est GFR (CKD-EPI)AfAm 68 (>60 ml/min/1.73 sqM) Est GFR (CKD-EPI)NonAf 59 (>60 ml/min/1.73 sqM) Glucose 93 (74-99) mg/dL Calcium 9.0 (8.4-10.2) mg/dL Magnesium 1.9 (1.6-2.3) mg/dL Total Bilirubin 0.6 (0.2-1.3) mg/dL AST 33 (14-36) U/L ALT 44 (9-52) U/L Alkaline Phosphatase 152 H (38-126) U/L Total Creatine Kinase 21 L (30-135) U/L CK-MB (CK-2) 0.6 (0.0-2.4) ng/mL CK-MB (CK-2) Rel Index 2.9 Troponin I <0.012 (0.000-0.034) ng/mL NT-Pro-B Natriuret Pep pg/mL Total Protein 5.7 L (6.3-8.2) g/dL Albumin 3.2 L (3.5-5.0) g/dL TSH 4.660 (0.465-4.680) mIU/L Free T4 1.53 (0.78-2.19) ng/dL Free T3 pg/mL 2.3 L (2.8-5.3) pg/ml 12/02/17 12/02/17 Range/Units 01:03 01:03 WBC (3.8-10.6) k/uL RBC (3.80-5.40) m/uL Hgb (11.4-16.0) gm/dL Hct (34.0-46.0) % MCV (80.0-100.0) fL MCH (25.0-35.0) pg MCHC (31.0-37.0) g/dL RDW (11.5-15.5) % Plt Count (150-450) k/uL Neutrophils % % Lymphocytes % % Monocytes % % Eosinophils % % Basophils % % Neutrophils # (1.3-7.7) k/uL Lymphocytes # (1.0-4.8) k/uL Monocytes # (0-1.0) k/uL Eosinophils # (0-0.7) k/uL Basophils # (0-0.2) k/uL Hypochromasia Anisocytosis PT 14.7 H (9.0-12.0) sec INR 1.6 H (<1.2) APTT 28.2 (22.0-30.0) sec Sodium (137-145) mmol/L Potassium (3.5-5.1) mmol/L Chloride (98-107) mmol/L Carbon Dioxide (22-30) mmol/L Anion Gap mmol/L BUN (7-17) mg/dL Creatinine (0.52-1.04) mg/dL Est GFR (CKD-EPI)AfAm (>60 ml/min/1.73 sqM) Est GFR (CKD-EPI)NonAf (>60 ml/min/1.73 sqM) Glucose (74-99) mg/dL Calcium (8.4-10.2) mg/dL Magnesium (1.6-2.3) mg/dL Total Bilirubin (0.2-1.3) mg/dL AST (14-36) U/L ALT (9-52) U/L Alkaline Phosphatase (38-126) U/L Total Creatine Kinase (30-135) U/L CK-MB (CK-2) (0.0-2.4) ng/mL CK-MB (CK-2) Rel Index Troponin I (0.000-0.034) ng/mL NT-Pro-B Natriuret Pep 9340 pg/mL Total Protein (6.3-8.2) g/dL Albumin (3.5-5.0) g/dL TSH (0.465-4.680) mIU/L Free T4 (0.78-2.19) ng/dL Free T3 pg/mL (2.8-5.3) pg/ml Disposition Clinical Impression: Congestive heart failure, Atrial fibrillation, Acute respiratory failure, Acute pulmonary edema Disposition: ADMITTED IP TO THIS [facility] Condition: Critical Procedures - Intubation Time Out Performed: Yes Sedative: Versed Paralytic: Succinylcholine Laryngoscope: Suresh Size: 3 ET Tube Size: 7.5 Tube Placement Confirmation: visualized tube passing through cords, equal breath sounds bilaterally, confirmation by capnometry Patient Tolerated Procedure: well, no complications
[2017-12-02] MEDS ORDERED: ENALAPRILAT 1.25 MG/ML 1 ML VIAL IVP STA (06:35)
[2017-12-02 06:38] LABS: ABG Base Excess -11.7 mmol/L; ABG HCO3 16 mmol/L (21-25); ABG Oxygen Saturation 97.6 % (94-97); ABG PCO2 43 mmHg (35-45); ABG PO2 122 mmHg (83-108); ABG TCO2 18 mmol/L (19-24)
[2017-12-02 06:39] LABS: ABG PH 7.19 (7.35-7.45)
[2017-12-02] MEDS: NITROGLYCERIN-D5W PMX 50 MG in DEXTROSE/WATER 1 250ML.BAG IV SCH (07:19)
[2017-12-02 08:39] LABS: Glucose,Whole Blood 104 mg/dL (75-99)
[2017-12-02] MEDS ORDERED: NOREPINEPHRIN 4 MG-0.9% NS PMX 4 MG/250 ML ML IV ONE (09:11)
[2017-12-02] MEDS ORDERED: NALOXONE 0.4 MG/ML 1 ML VIAL IV PRN (09:16)
[2017-12-02 09:48] LABS: Appearance,Urine Clear (Clear); Bilirubin,Urine Negative (Negative); Blood,Urine Negative (Negative); Color,Urine Light Yellow; Glucose,Urine (UA) Negative (Negative); Ketones,Urine Negative (Negative); Leukocyte Esterase,Urine Negative (Negative); Nitrite,Urine Negative (Negative); PH, Urine 5.5 (5.0-8.0); Protein,Urine Trace (Negative); Specific Gravity,Urine 1.007 (1.001-1.035); Urobilinogen,Urine <2.0 mg/dL (<2.0)
[2017-12-02 10:16] LABS: Calcium 8.1 mg/dL (8.4-10.2); Magnesium 1.7 mg/dL (1.6-2.3); Phosphorus 3.7 mg/dL (2.5-4.5); Potassium 3.9 mmol/L (3.5-5.1)
--- NOTE | 2017-12-02 10:53 | P.CNPUL ---
<Samantha Xiao E - Last Filed: 12/02/17 10:53> History of Present Illness Consult date: 12/02/17 Requesting physician: Abelardo Kelly Reason for consult: other (ICU management, acute hypoxic respiratory failure) Chief complaint: shortness of breath History of present illness: This is a 67-year-old female patient who is well-known to our services being seen examined and evaluated today on rounds. This patient recently was admitted to the hospital for 2017 to 12/01/2017 for atrial fibrillation, gastroenteritis, and acute COPD exacerbation. She returned to the emergency room on 12/02/2017 with complaints of dyspnea associated with her COPD. The patient initially declined any breathing treatments at that time related to concern of exacerbating her atrial fibrillation. It was noted that the patient also had a bloody nose at night and the patient was on Plavix since oral toe. She also complained of some mild diffuse abdominal discomfort and is known to have chronic IBS and constipation. While in the emergency room the initial chest x-ray shows no changes from her previous admission. Her abdominal x-ray did show some marked stool. Also while in the emergency room the patient was noted to have a rapid decline in her respiratory status. Her oxygen saturations were in the 70s and she required an increase in her oxygen demands and ultimately on BiPAP. A new chest x-ray was obtained a few hours later which did show new bilateral central edema and infiltrates. The patient's worsening respiratory status continued she was ultimately intubated in the emergency room and admitted to the intensive care unit with atrial fibrillation , CHF, acute hypoxic respiratory failure. Currently the patient is being examined and the intensive care unit and is on mechanical ventilation with assist control mode respiratory rate of 16, tidal volume 400, FiO2 80% and a PEEP of 5. She is synchronous with the vent. She is on propofol at this time. Also leaves fed has also been started due to hypotension currently she is on 12 mild aches and is responding well. Stat lab draws were obtained of her lactic acid and it came back at 1.7, the patient's white count is normal at 6.7 , hemoglobin is 11.6, sodium 139, potassium 4.2, chloride 99, CO2 28, BUN 14, creatinine 1, magnesium 1.9. Patient's ABGs were obtained this morning and did show a pH of 7.19 pCO2 43 pO2 122 and a bicarb of 16. We will obtain a stat vamper all of this ABG. Fluids have been switched to KVO, blood urine and sputum cultures are also sent. Patient continues to be tachycardic cardiology is on consult and have been adjusting cardiac medications in that regard. A PICC line is requested from interventional radiology and we are currently awaiting on responsive whether that can happen at this time or not. If the IR Doctor is unable to insert a PICC line then the patient will require a central line placement. We will obtain consent for these procedures with the patient's daughter. Review of Systems Unable to obtain due to the patient being on mechanical ventilation and sedated with propofol Past Medical History Past Medical History: Atrial Fibrillation, Asthma, Coronary Artery Disease (CAD) , Cancer, COPD, CVA/TIA, Eye Disorder, GERD/Reflux, Hyperlipidemia, Hypertension , Memory Impairment, Myocardial Infarction ([place]), Osteoarthritis (OA), Respiratory Disorder, Sleep Apnea/CPAP/BIPAP, Thyroid Disorder, Vascular Disorder Additional Past Medical History / Comment(s): Pt recently admitted to [facility] on 11/25/17 febrile, recent UTI, hypotensive. 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 Last Myocardial Infarction Date:: 11/03/14 History of Any Multi-Drug Resistant Organisms: None Reported Date of last positivie culture/infection: None Past Surgical History: Adenoidectomy, Bladder Surgery, Cholecystectomy, Ear Surgery, Heart Catheterization With Stent, Hysterectomy, Orthopedic Surgery, Tonsillectomy Additional Past Surgical History / Comment(s): 11/28/14 PTCA with stents, left CAROTID ENDARTERECTOMY, MULTIPLE BILATERAL STENTS IN LOWER EXTREMITIES, R elbow surgery as a child, R ear surgery for blockage, bilateral ankle arthroscopies, bilateral knee arthroscopies, deviated septal surgery, L great toe pinned, colonoscopies/benign polypectomy, R nephrectomy and partial bladder removal, skin lesion from nose. Past Anesthesia/Blood Transfusion Reactions: Motion Sickness Date of Last Stent Placement:: 10/2014 Smoking Status: Former smoker - Past Family History Mother Family Medical History: COPD Additional Family Medical History / Comment(s): Mother is . She from respiratory failure. Father Family Medical History: Coronary Artery Disease (CAD), Myocardial Infarction ([place] ) Additional Family Medical History / Comment(s): Father had gout Medications and Allergies Home Medications Medication Instructions Recorded Confirmed Type PARoxetine HCL 30 mg PO HS 07/02/14 12/02/17 History OXcarbazepine [Trileptal] 150 mg PO HS 11/04/14 12/02/17 History Melatonin 3 mg PO HS 03/05/16 12/02/17 History Atorvastatin Calcium [Lipitor] 20 mg PO DAILY 06/13/17 12/02/17 History Calcium Polycarbophil [Fibercon] 1,250 mg PO DAILY 06/13/17 12/02/17 History Clopidogrel Bisulfate [Plavix] 75 mg PO DAILY 06/13/17 12/02/17 History Ferrous Sulfate [Iron (65 MG 325 mg PO DAILY 06/13/17 12/02/17 History Elemental)] Furosemide [Lasix] 40 mg PO DAILY 06/13/17 12/02/17 History Levothyroxine Sodium [Synthroid] 100 mcg PO DAILY 06/13/17 12/02/17 History Lurasidone HCl [Latuda] 20 mg PO DAILY 06/13/17 12/02/17 History Magnesium Oxide [Mag-Ox] 400 mg PO DAILY 06/13/17 12/02/17 History Montelukast [Singulair] 10 mg PO HS 06/13/17 12/02/17 History Pantoprazole Sodium [Protonix] 40 mg PO DAILY 06/13/17 12/02/17 History Potassium Chloride [Klor-Con 10] 10 meq PO DAILY 06/13/17 12/02/17 History Fluticasone/Vilanterol [Breo 1 puff INHALATION RT-DAILY 06/14/17 12/02/17 History Ellipta 100-25 Mcg Inhaler] Tiotropium Denhoff [Spiriva] 1 cap INHALATION RT-DAILY 06/14/17 12/02/17 History Rivaroxaban [Xarelto] 15 mg PO W/SUPPER #30 tab 06/16/17 12/02/17 Rx Multivitamins, Thera [Multivitamin 1 each PO DAILY@1200 #30 tab 11/15/17 Rx (formulary)] Albuterol Nebulized [Ventolin 2.5 mg INHALATION RT-QID nebu 12/01/17 12/02/17 Rx Nebulized] Docusate [Colace] 100 mg PO BID cap 12/01/17 12/02/17 Rx Metoprolol Tartrate [Lopressor] 50 mg PO TID tab 12/01/17 12/02/17 Rx Nitroglycerin Sl Tabs [Nitrostat] 0.4 mg SUBLINGUAL Q5M PRN tab 12/01/17 Rx Polyethylene Glycol 3350 [Miralax] 17 gm PO HS powd.pack 12/01/17 12/02/17 Rx Allergies Allergy/AdvReac Type Severity Reaction Status Date / Time latex Allergy Rash/Hives Verified 11/24/17 20:05 Penicillins Allergy Unknown Verified 11/24/17 20:05 Childhood Physical Exam Vitals: Vital Signs Temp Pulse Resp BP Pulse Ox 12/02/17 10:20 130 H 24 124/60 97 12/02/17 10:00 120 H 26 H 110/60 97 12/02/17 09:40 139 H 26 H 115/83 97 12/02/17 09:20 121 H 26 H 59/46 95 12/02/17 09:00 105 H 30 H 72/45 95 12/02/17 08:50 112 H 31 H 12/02/17 08:40 98.8 F 119 H 33 H 94 L 12/02/17 08:20 99.4 F 109 H 32 H 121/55 96 12/02/17 08:08 113 H 32 H 133/52 95 12/02/17 07:57 129 H 32 H 98/53 12/02/17 07:29 128 H 32 H 77/53 94 L 12/02/17 06:41 122 H 35 H 112/71 98 12/02/17 06:30 140 H 34 H 149/101 95 12/02/17 06:16 132 H 35 H 121/82 96 12/02/17 06:06 150 H 30 H 173/98 95 12/02/17 05:56 142 H 30 H 212/77 90 L 12/02/17 05:39 155 H 12/02/17 05:24 135 H 12/02/17 05:05 155 H 34 H 186/92 90 L 12/02/17 04:50 144 H 35 H 168/98 82 L 12/02/17 03:24 102 H 20 126/94 97 12/02/17 01:55 103 H 20 101/79 94 L 12/02/17 00:44 97.9 F 122 H 103/63 77 L Intake and Output 12/01/17 12/02/17 12/02/17 22:59 06:59 14:59 Intake Total 1.125 76.413 Output Total 240 Balance 1.125 -163.587 Intake: IV 40 0.9ns 40 Intake, IV Titration 1.125 36.413 Amount Diltiazem 50 mg In Sodium 15.417 Chloride 0.9% 40 ml @ 5 MG/HR 5 mls/hr IV .Q10H ONE Rx#:[id number] Propofol 1,000 mg In 1.125 20.996 Empty Bag 1 bag @ Titrate IV .Q0M [facility] Rx#: [id number] Output: Urine 240 Other: Weight 72.575 kg GENERAL EXAM: On mechanical ventilation with sedation HEAD: Normocephalic. EYES: Normal reaction of pupils, equal size. NOSE: Clear with pink turbinates. THROAT: No erythema or exudates. NECK: No masses, no JVD. CHEST: No chest wall deformity. LUNGS: Equal air entry with some posterior crackles. CVS: S1 and S2 normal with no audible mumurs, regular rhythm, tachycardic. ABDOMEN: No hepatosplenomegaly, normal bowel sounds, no guarding or rigidity. EXTREMITIES: No edema noted, pedal pulses palpable. CENTRAL NERVOUS SYSTEM: On mechanical ventilation with sedation. Results - Laboratory Findings CBC and BMP: 12/02/17 01:03 12/02/17 09:42 ABG ABG pH 7.19 (7.35-7.45) L* 12/02/17 06:23 ABG pCO2 43 mmHg (35-45) 12/02/17 06:23 ABG pO2 122 mmHg (83-108) H 12/02/17 06:23 ABG O2 Saturation 97.6 % (94-97) H 12/02/17 06:23 PT/INR, D-dimer PT 14.7 sec (9.0-12.0) H 12/02/17 01:03 INR 1.6 (<1.2) H 12/02/17 01:03 Abnormal lab findings: Abnormal Labs 12/02/17 12/02/17 12/02/17 01:03 01:03 01:03 MCHC 30.8 L RDW 17.3 H PT INR ABG pH ABG pO2 ABG HCO3 ABG Total CO2 ABG O2 Saturation Creatinine POC Glucose (mg/dL) Calcium Alkaline Phosphatase 152 H Total Creatine Kinase 21 L Total Protein 5.7 L Albumin 3.2 L Free T3 pg/mL 2.3 L Urine Protein 12/02/17 12/02/17 12/02/17 01:03 06:23 08:38 MCHC RDW PT 14.7 H INR 1.6 H ABG pH 7.19 L* ABG pO2 122 H ABG HCO3 16 L ABG Total CO2 18 L ABG O2 Saturation 97.6 H Creatinine POC Glucose (mg/dL) 104 H Calcium Alkaline Phosphatase Total Creatine Kinase Total Protein Albumin Free T3 pg/mL Urine Protein 12/02/17 12/02/17 09:24 09:42 MCHC RDW PT INR ABG pH ABG pO2 ABG HCO3 ABG Total CO2 ABG O2 Saturation Creatinine 1.06 H POC Glucose (mg/dL) Calcium 8.1 L Alkaline Phosphatase Total Creatine Kinase Total Protein Albumin Free T3 pg/mL Urine Protein Trace H - Diagnostic Findings Chest x-ray: report reviewed, image reviewed Additional studies: ABD xray Assessment and Plan Assessment: Assessment SIRS 2/4 Acute on chronic hypoxic respiratory distress Atrial fibrillation and tachycardia Acute exacerbation of COPD Acute exacerbation of CHF Abdominal discomfort with marked stool noted on abdominal x-ray Hypotension Plan Medications have been reviewed and will be continued as ordered. Patient should be maintained on Levophed at this time to maintain at map greater than 65. She should remain on mechanical ventilation with propofol for sedation at this time as well. Cardiology on consult and currently adjusting cardiac medications. Blood, urine and sputum cultures have been obtained. Add budesonide to her current nebulizer treatments. Chlorhexidine, oral care, elevated head of bed for VAP prevention. Continue with pulmonary hygiene, coughing and deep breathing exercises, and supportive care. Supplemental oxygen to maintain oxygen saturations of 92% or better. Continue nebulizer treatments. Currently awaiting approval from interventional radiology for PICC line insertion. If they're unable to place a PICC line the patient will potentially have a central line placement. Stat ABG. Continue to monitor I &O. GI and DVT prophylaxis. We will continue to monitor labs/results and adjust treatment as necessary. Further recommendations pending. I performed an examination of the patient and discussed their management with the nurse practitioner. I have reviewed the nurse practitioner's note and agree with the documented findings and plan of care. <Florinda Hutchinson A - Last Filed: 12/03/17 13:37> Physical Exam Osteopathic Statement: *. No significant issues noted on an osteopathic structural exam other than those noted in the History and Physical/Consult. Vitals: Vital Signs Temp Pulse Resp BP Pulse Ox 12/03/17 12:00 98.5 F 82 21 121/77 90 L 12/03/17 11:15 95 12/03/17 11:08 92 12/03/17 11:00 89 16 136/82 95 12/03/17 10:00 78 21 96/58 95 12/03/17 09:00 66 16 107/69 97 12/03/17 08:25 77 12/03/17 08:09 76 12/03/17 08:00 99.3 F 78 19 98/62 97 12/03/17 07:00 84 20 123/77 98 12/03/17 06:30 72 19 120/76 98 12/03/17 06:00 87 18 109/72 97 12/03/17 05:30 75 19 98/66 97 12/03/17 05:28 79 12/03/17 05:00 72 16 92/63 99 12/03/17 04:30 83 15 90/61 98 12/03/17 04:00 97.7 F 74 17 113/70 99 12/03/17 03:46 75 12/03/17 03:30 90 19 115/71 98 12/03/17 03:00 77 41 H 111/74 98 12/03/17 02:30 67 20 115/73 98 12/03/17 02:00 74 22 92/63 98 12/03/17 01:45 62 20 84/52 97 12/03/17 01:30 68 36 H 93/56 97 12/03/17 01:15 69 26 H 96/61 93 L 12/03/17 01:00 112 H 21 95/57 96 12/03/17 00:45 109 H 47 H 147/108 93 L 12/03/17 00:30 109 H 18 96/63 97 12/03/17 00:00 98.2 F 106 H 22 113/66 97 12/02/17 23:58 115 H 12/02/17 23:43 103 H 12/02/17 23:07 100 19 98/61 97 12/02/17 23:00 129 H 20 98/61 97 12/02/17 22:00 114 H 22 133/88 98 12/02/17 21:00 109 H 16 85/69 96 12/02/17 20:02 107 H 20 12/02/17 20:00 98.5 F 101 H 16 109/81 98 12/02/17 19:48 95 20 12/02/17 19:00 105 H 20 88/68 96 12/02/17 18:00 109 H 19 96/71 98 12/02/17 17:00 94 21 92/68 98 12/02/17 16:31 101 H 25 H 12/02/17 16:21 100 25 H 12/02/17 16:00 98.8 F 109 H 22 94/68 98 12/02/17 15:00 108 H 20 104/74 98 12/02/17 14:00 117 H 20 106/79 97 Intake and Output 12/02/17 12/03/17 12/03/17 22:59 06:59 14:59 Intake Total 693.090 706.874 529 Output Total 1315 870 900 Balance -621.910 -163.126 -371 Intake: IV 160 160 270 0.9ns 160 160 20 Cefepime 1 gm In Sodium 50 Chloride 0.9% 50 ml @ 100 mls/hr IVPB Q12HR [facility] Rx #:[id number] Magnesium Sulfate-D5w Pmx 100 1 gm In Dextrose/Water 1 100ml.bag @ 100 mls/hr IVPB Q1H [facility] Rx#: [id number] Sodium Chloride 0.9% 1, 100 000 ml @ 20 mls/hr IV . Q24H [facility] Rx#:[id number] Intake, IV Titration 363.090 72.874 100 Amount Amiodarone 450 mg In 259.000 61.561 Dextrose 5% in Water 250 ml @ 1 MG/MIN 34.53 mls/ hr IV .Q7H31M [facility] Rx#: [id number] Cefepime 1 gm In Sodium 50 Chloride 0.9% 50 ml @ 100 mls/hr IVPB Q12HR [facility] Rx #:[id number] Norepinephrin 4 mg-0.9% 8.125 11.313 Ns Pmx 4 mg In 250 ml @ Titrate IV .Q0M [facility] Rx#: [id number] Propofol 1,000 mg In 45.965 100 Empty Bag 1 bag @ Titrate IV .Q0M [facility] Rx#: [id number] Tube Feeding 140 384 129 Other 30 90 30 Output: Urine 1315 870 900 Other: Voiding Method Indwelling Catheter Indwelling Catheter Indwelling Catheter # Bowel Movements 0 Weight 72.575 kg Results - Laboratory Findings CBC and BMP: 12/03/17 05:01 12/03/17 11:15 ABG ABG pH 7.49 (7.35-7.45) H 12/03/17 10:59 ABG pCO2 33 mmHg (35-45) L 12/03/17 10:59 ABG pO2 81 mmHg (83-108) L 12/03/17 10:59 ABG O2 Saturation 95.4 % (94-97) 12/03/17 10:59 PT/INR, D-dimer PT 14.7 sec (9.0-12.0) H 12/02/17 01:03 INR 1.6 (<1.2) H 12/02/17 01:03 Abnormal lab findings: Abnormal Labs 12/02/17 12/02/17 12/02/17 01:03 01:03 01:03 MCHC 30.8 L RDW 17.3 H Neutrophils # Lymphocytes # PT INR ABG pH ABG pCO2 ABG pO2 ABG HCO3 ABG Total CO2 ABG O2 Saturation Carbon Dioxide BUN Creatinine Glucose POC Glucose (mg/dL) Hemoglobin A1c Calcium Alkaline Phosphatase 152 H Total Creatine Kinase 21 L Troponin I Total Protein 5.7 L Albumin 3.2 L Free T3 pg/mL 2.3 L Urine Protein 12/02/17 12/02/17 12/02/17 01:03 06:23 08:38 MCHC RDW Neutrophils # Lymphocytes # PT 14.7 H INR 1.6 H ABG pH 7.19 L* ABG pCO2 ABG pO2 122 H ABG HCO3 16 L ABG Total CO2 18 L ABG O2 Saturation 97.6 H Carbon Dioxide BUN Creatinine Glucose POC Glucose (mg/dL) 104 H Hemoglobin A1c Calcium Alkaline Phosphatase Total Creatine Kinase Troponin I Total Protein Albumin Free T3 pg/mL Urine Protein 12/02/17 12/02/17 12/02/17 09:24 09:42 09:42 MCHC RDW Neutrophils # Lymphocytes # PT INR ABG pH ABG pCO2 ABG pO2 ABG HCO3 ABG Total CO2 ABG O2 Saturation Carbon Dioxide BUN Creatinine 1.06 H Glucose POC Glucose (mg/dL) Hemoglobin A1c 6.1 H Calcium 8.1 L Alkaline Phosphatase Total Creatine Kinase Troponin I Total Protein Albumin Free T3 pg/mL Urine Protein Trace H 12/02/17 12/02/17 12/02/17 10:43 11:35 11:39 MCHC RDW Neutrophils # Lymphocytes # PT INR ABG pH ABG pCO2 ABG pO2 116 H ABG HCO3 ABG Total CO2 ABG O2 Saturation 98.3 H Carbon Dioxide BUN Creatinine Glucose POC Glucose (mg/dL) 109 H Hemoglobin A1c Calcium Alkaline Phosphatase Total Creatine Kinase 26 L Troponin I 0.209 H* Total Protein Albumin Free T3 pg/mL Urine Protein 12/02/17 12/03/17 12/03/17 21:49 00:12 05:01 MCHC RDW 16.9 H Neutrophils # 9.6 H Lymphocytes # 0.6 L PT INR ABG pH ABG pCO2 ABG pO2 ABG HCO3 ABG Total CO2 ABG O2 Saturation Carbon Dioxide BUN Creatinine Glucose POC Glucose (mg/dL) 142 H Hemoglobin A1c Calcium Alkaline Phosphatase Total Creatine Kinase 23 L Troponin I 0.155 H* Total Protein Albumin Free T3 pg/mL Urine Protein 12/03/17 12/03/17 12/03/17 05:01 06:00 06:30 MCHC RDW Neutrophils # Lymphocytes # PT INR ABG pH ABG pCO2 ABG pO2 ABG HCO3 ABG Total CO2 25 H ABG O2 Saturation 97.9 H Carbon Dioxide 21 L BUN 21 H Creatinine 1.12 H Glucose 150 H POC Glucose (mg/dL) 153 H Hemoglobin A1c Calcium Alkaline Phosphatase Total Creatine Kinase Troponin I Total Protein Albumin Free T3 pg/mL Urine Protein 12/03/17 12/03/17 10:59 11:53 MCHC RDW Neutrophils # Lymphocytes # PT INR ABG pH 7.49 H ABG pCO2 33 L ABG pO2 81 L ABG HCO3 ABG Total CO2 26 H ABG O2 Saturation Carbon Dioxide BUN Creatinine Glucose POC Glucose (mg/dL) 183 H Hemoglobin A1c Calcium Alkaline Phosphatase Total Creatine Kinase Troponin I Total Protein Albumin Free T3 pg/mL Urine Protein Assessment and Plan Assessment: Patient successfully extubated. Continue O2 to maintain saturation > or = 90%. PT and OT. Swallow eval later today. IS and pulmonary hygiene. Continue diuresis. Will likely decrease in AM pending patient's clinical course. Cultures pending final. Ok to transfer out of the ICU later today. ~Florinda Hutchinson, DO
[2017-12-02] MEDS: CHLORHEXIDINE GLUCONATE 15 ML CUP MUCOUS MEM SCH ×2 (11:00→21:19)
[2017-12-02] MEDS: SODIUM CHLORIDE 0.9% 1,000 ML IV SCH (11:01)
[2017-12-02 11:04] LABS: ABG Base Excess -2.2 mmol/L; ABG HCO3 23 mmol/L (21-25); ABG Oxygen Saturation 98.3 % (94-97); ABG PCO2 40 mmHg (35-45); ABG PH 7.37 (7.35-7.45); ABG PO2 116 mmHg (83-108); ABG TCO2 24 mmol/L (19-24)
[2017-12-02] MEDS ORDERED: LIDOCAINE 2% INJ 20 MG/ML SQ ONE (11:16)
[2017-12-02] MEDS ORDERED: DEXTROSE 5% IN WATER 100 ML with AMIODARONE 150 MG IV ONE (11:23)
[2017-12-02 11:41] LABS: Glucose,Whole Blood 109 mg/dL (75-99)
--- NOTE | 2017-12-02 11:54 | XR ---
EXAMINATION TYPE: XR chest 1V confirm line plcky DATE OF EXAM: 12/02/2017 COMPARISON: 12/02/2017 HISTORY: Line placement TECHNIQUE: Single frontal view of the chest is obtained. FINDINGS: Endotracheal tube remains 4 cm above the farhat. NG tube stable. PICC line appears in good position with the tip overlying the SVC. There is persistent cardiomegaly with atherosclerotic thoracic aorta. There is reticular interstitial changes with increased central opacity and increased interstitial markings. No large pleural effusio n or pneumothorax is seen bilaterally. Osseous structures are intact. Surgical clips in the abdomen n oted. IMPRESSION: 1. PICC line appears in good position. 2. Diffuse lung disease is stable with bilateral infiltrate and pleural effusion. Underlying CHF or a typical, interstitial pneumonia in the differential diagnosis.
--- NOTE | 2017-12-02 11:55 | IR ---
PICC LINE PLACEMENT: HISTORY: IV access due to low blood pressure PROCEDURE: Ultrasound guidance of PICC line placement. INTERIOR DESIGN PROJECT MANAGER: Dr. Olsen. COMPLICATIONS: None ANESTHESIA: 1. 1% Lidocaine locally. FINDINGS/TECHNIQUE: The procedure was explained to the patient. The risks, complications, benefits and alternatives were discussed and any questions were answered. Informed consent was obtained. The patient was placed supine on the fluoroscopic table and prepped and draped in the usual sterile fash ion. Utilizing a 21 gauge needle and sonographic guidance, access in the right basilic vein was ach ieved and there is placement of a 0.018 guidewire. The vein is patent. A 5-F. Sheath was placed ove r the guidewire. The guidewire and dilator were removed and a 5-F. Double lumen PICC line was placed through the sheath with the chest x-ray confirming the tip at the level of the SVC. The sheath was removed, the catheter was flushed and sutured into position. The patient was stable throughout the p rocedure and remained stable upon discharge from the Department of Radiology. The vein puncture was patent under ultrasound. A sainz scale image was obtained to document patency of the vein punctured. Patient's referring physicians dated the procedure was emergency and cystoscopy the PICC line be placed despite anticoagulation. All elements of the maximal barrier technique were u tilized. IMPRESSION: 1. Successful PICC line placement under ultrasound performed bedside within the ICU.
[2017-12-02] MEDS ORDERED: VANCOMYCIN IV PER PHARMACY 1 EACH MISC MISCELLANE PRN (12:09)
[2017-12-02] MEDS: methylPREDNISolone SOD SUCCI 125 MG/2 ML VIAL IV SCH ×3 (12:16→23:47)
[2017-12-02] MEDS: AMIODARONE 450 MG in DEXTROSE 5% IN WATER 250 ML IV SCH ×4 (12:17→21:46)
[2017-12-02 12:30] LABS: Creatine Kinase MB 1.1 ng/mL (0.0-2.4)
[2017-12-02] MEDS: CEFEPIME 1 GM in SODIUM CHLORIDE 0.9% 50 ML IVPB SCH ×2 (12:30→21:19)
[2017-12-02] MEDS: LEVOTHYROXINE 100 MCG TAB PO SCH (12:30)
[2017-12-02 12:32] LABS: Troponin I 0.209 ng/mL (0.000-0.034)
--- NOTE | 2017-12-02 12:33 | P.HPIM ---
History of Present Illness H&P Date: 12/02/17 Chief Complaint: Shortness of breath This is a 67 -year-old female, patient of [facility]. She has a known past medical history of atrial fibrillation, congestive heart failure, COPD, CVA, trigeminal neuralgia, RI, hypothyroidism, coronary artery disease with cardiac stent, kidney cancer status post right nephrectomy and left carotid endarterectomy. Patient was just recently discharged yesterday afternoon after being hospitalized for gastroenteritis, constipation, acute kidney injury and atrial fibrillation with rapid ventricular rate. Cardiology had increased metoprolol to 50 mg 3 times a day. Patient was doing well yesterday. She was cleared by all consulting physicians. Patient was eager for discharge home. History has been obtained from chart and nursing staff. Apparently around midnight patient had worsening shortness of breath some abdominal discomfort and a bloody nose. She was brought back into the emergency room by her daughter. After evaluation in the emergency room patient was in a be discharged home. However daughter was concerned and wanted her mother to stay. ENT was consulted in regards to the nosebleed. However, during the night patient went into respiratory failure with evidence of fluid overload. Per ER report patient had a rapid decompensation in the emergency department. Was wheezy. Chest x-ray had concerns of pulmonary edema. Patient became more drowsy. And she required to be intubated. Pulmonary service consulted. Patient was admitted to the ICU. Patient is currently intubated and sedated. Last chest x-ray showing diffuse lung disease stable with bilateral infiltrate and pleural effusion. Underlying CHF or atypical interstitial pneumonia is in the differential diagnosis. Pulmonary service has ordered cefepime and Vanco. IV steroids were ordered in the emergency room. Patient also seen by cardiology in regards to her atrial fibrillation with rapid ventricular response they've placed her on IV amiodarone. Cardizem drip has been discontinued. She also is on IV Lasix for congestive heart failure. Abdominal x-ray still showing evidence of stool in the colon. And it subsided enema has been ordered. She did receive a dose of lactulose in the ER with no results. Review of Systems Unable to obtain patient is intubated and sedated Past Medical History Past Medical History: Atrial Fibrillation, Asthma, Coronary Artery Disease (CAD) , Cancer, COPD, CVA/TIA, Eye Disorder, GERD/Reflux, Hyperlipidemia, Hypertension , Memory Impairment, Myocardial Infarction (RI), Osteoarthritis (OA), Respiratory Disorder, Sleep Apnea/CPAP/BIPAP, Thyroid Disorder, Vascular Disorder Additional Past Medical History / Comment(s): Pt recently admitted to [facility] on 11/25/17 febrile, recent UTI, hypotensive. 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 Last Myocardial Infarction Date:: 11/03/14 History of Any Multi-Drug Resistant Organisms: None Reported Date of last positivie culture/infection: None Past Surgical History: Adenoidectomy, Bladder Surgery, Cholecystectomy, Ear Surgery, Heart Catheterization With Stent, Hysterectomy, Orthopedic Surgery, Tonsillectomy Additional Past Surgical History / Comment(s): 11/28/14 PTCA with stents, left CAROTID ENDARTERECTOMY, MULTIPLE BILATERAL STENTS IN LOWER EXTREMITIES, R elbow surgery as a child, R ear surgery for blockage, bilateral ankle arthroscopies, bilateral knee arthroscopies, deviated septal surgery, L great toe pinned, colonoscopies/benign polypectomy, R nephrectomy and partial bladder removal, skin lesion from nose. Past Anesthesia/Blood Transfusion Reactions: Motion Sickness Date of Last Stent Placement:: 10/2014 Smoking Status: Former smoker - Past Family History Mother Family Medical History: COPD Additional Family Medical History / Comment(s): Mother is . She from respiratory failure. Father Family Medical History: Coronary Artery Disease (CAD), Myocardial Infarction (RI ) Additional Family Medical History / Comment(s): Father had gout Medications and Allergies Home Medications Medication Instructions Recorded Confirmed Type PARoxetine HCL 30 mg PO HS 07/02/14 12/02/17 History OXcarbazepine [Trileptal] 150 mg PO HS 11/04/14 12/02/17 History Melatonin 3 mg PO HS 03/05/16 12/02/17 History Atorvastatin Calcium [Lipitor] 20 mg PO DAILY 06/13/17 12/02/17 History Calcium Polycarbophil [Fibercon] 1,250 mg PO DAILY 06/13/17 12/02/17 History Clopidogrel Bisulfate [Plavix] 75 mg PO DAILY 06/13/17 12/02/17 History Ferrous Sulfate [Iron (65 MG 325 mg PO DAILY 06/13/17 12/02/17 History Elemental)] Furosemide [Lasix] 40 mg PO DAILY 06/13/17 12/02/17 History Levothyroxine Sodium [Synthroid] 100 mcg PO DAILY 06/13/17 12/02/17 History Lurasidone HCl [Latuda] 20 mg PO DAILY 06/13/17 12/02/17 History Magnesium Oxide [Mag-Ox] 400 mg PO DAILY 06/13/17 12/02/17 History Montelukast [Singulair] 10 mg PO HS 06/13/17 12/02/17 History Pantoprazole Sodium [Protonix] 40 mg PO DAILY 06/13/17 12/02/17 History Potassium Chloride [Klor-Con 10] 10 meq PO DAILY 06/13/17 12/02/17 History Fluticasone/Vilanterol [Breo 1 puff INHALATION RT-DAILY 06/14/17 12/02/17 History Ellipta 100-25 Mcg Inhaler] Tiotropium [place] [Spiriva] 1 cap INHALATION RT-DAILY 06/14/17 12/02/17 History Rivaroxaban [Xarelto] 15 mg PO W/SUPPER #30 tab 06/16/17 12/02/17 Rx Multivitamins, Thera [Multivitamin 1 each PO DAILY@1200 #30 tab 11/15/17 Rx (formulary)] Albuterol Nebulized [Ventolin 2.5 mg INHALATION RT-QID nebu 12/01/17 12/02/17 Rx Nebulized] Docusate [Colace] 100 mg PO BID cap 12/01/17 12/02/17 Rx Metoprolol Tartrate [Lopressor] 50 mg PO TID tab 12/01/17 12/02/17 Rx Nitroglycerin Sl Tabs [Nitrostat] 0.4 mg SUBLINGUAL Q5M PRN tab 12/01/17 Rx Polyethylene Glycol 3350 [Miralax] 17 gm PO HS powd.pack 12/01/17 12/02/17 Rx Allergies Allergy/AdvReac Type Severity Reaction Status Date / Time latex Allergy Rash/Hives Verified 11/24/17 20:05 Penicillins Allergy Unknown Verified 11/24/17 20:05 Childhood Physical Exam Vitals: Vital Signs Temp Pulse Resp BP Pulse Ox 12/02/17 11:00 132 H 22 110/57 97 12/02/17 10:40 127 H 25 H 116/65 97 12/02/17 10:20 130 H 24 124/60 97 12/02/17 10:00 120 H 26 H 110/60 97 12/02/17 09:40 139 H 26 H 115/83 97 12/02/17 09:20 121 H 26 H 59/46 95 12/02/17 09:00 105 H 30 H 72/45 95 12/02/17 08:50 112 H 31 H 12/02/17 08:40 98.8 F 119 H 33 H 94 L 12/02/17 08:20 99.4 F 109 H 32 H 121/55 96 12/02/17 08:08 113 H 32 H 133/52 95 12/02/17 07:57 129 H 32 H 98/53 12/02/17 07:29 128 H 32 H 77/53 94 L 12/02/17 06:41 122 H 35 H 112/71 98 12/02/17 06:30 140 H 34 H 149/101 95 12/02/17 06:16 132 H 35 H 121/82 96 12/02/17 06:06 150 H 30 H 173/98 95 12/02/17 05:56 142 H 30 H 212/77 90 L 12/02/17 05:39 155 H 12/02/17 05:24 135 H 12/02/17 05:05 155 H 34 H 186/92 90 L 12/02/17 04:50 144 H 35 H 168/98 82 L 12/02/17 03:24 102 H 20 126/94 97 12/02/17 01:55 103 H 20 101/79 94 L 12/02/17 00:44 97.9 F 122 H 103/63 77 L Intake and Output 12/01/17 12/02/17 12/02/17 22:59 06:59 14:59 Intake Total 1.125 76.413 Output Total 240 Balance 1.125 -163.587 Intake: IV 40 0.9ns 40 Intake, IV Titration 1.125 36.413 Amount Diltiazem 50 mg In Sodium 15.417 Chloride 0.9% 40 ml @ 5 MG/HR 5 mls/hr IV .Q10H [facility] Rx#:[id number] Propofol 1,000 mg In 1.125 20.996 Empty Bag 1 bag @ Titrate IV .Q0M [facility] Rx#: [id number] Output: Urine 240 Other: Weight 72.575 kg Head normocephalic Neck supple Lungs clear to auscultation bilaterally no wheezing or crackles Heart irregular rhythm. A. fib on monitor Abdomen is soft nontender nondistended positive bowel sounds no hepatosplenomegaly Extremities no edema Neuro patient is intubated and sedated Results CBC & Chem 7: 12/02/17 01:03 12/02/17 09:42 Labs: Abnormal Lab Results - Last 24 Hours (Table) 12/02/17 12/02/17 12/02/17 Range/Units 01:03 01:03 01:03 MCHC 30.8 L (31.0-37.0) g/dL RDW 17.3 H (11.5-15.5) % PT (9.0-12.0) sec INR (<1.2) ABG pH (7.35-7.45) ABG pO2 (83-108) mmHg ABG HCO3 (21-25) mmol/L ABG Total CO2 (19-24) mmol/L ABG O2 Saturation (94-97) % Creatinine (0.52-1.04) mg/dL POC Glucose (mg/dL) (75-99) mg/dL Calcium (8.4-10.2) mg/dL Alkaline Phosphatase 152 H (38-126) U/L Total Creatine Kinase 21 L (30-135) U/L Total Protein 5.7 L (6.3-8.2) g/dL Albumin 3.2 L (3.5-5.0) g/dL Free T3 pg/mL 2.3 L (2.8-5.3) pg/ml Urine Protein (Negative) 12/02/17 12/02/17 12/02/17 Range/Units 01:03 06:23 08:38 MCHC (31.0-37.0) g/dL RDW (11.5-15.5) % PT 14.7 H (9.0-12.0) sec INR 1.6 H (<1.2) ABG pH 7.19 L* (7.35-7.45) ABG pO2 122 H (83-108) mmHg ABG HCO3 16 L (21-25) mmol/L ABG Total CO2 18 L (19-24) mmol/L ABG O2 Saturation 97.6 H (94-97) % Creatinine (0.52-1.04) mg/dL POC Glucose (mg/dL) 104 H (75-99) mg/dL Calcium (8.4-10.2) mg/dL Alkaline Phosphatase (38-126) U/L Total Creatine Kinase (30-135) U/L Total Protein (6.3-8.2) g/dL Albumin (3.5-5.0) g/dL Free T3 pg/mL (2.8-5.3) pg/ml Urine Protein (Negative) 12/02/17 12/02/17 12/02/17 Range/Units 09:24 09:42 10:43 MCHC (31.0-37.0) g/dL RDW (11.5-15.5) % PT (9.0-12.0) sec INR (<1.2) ABG pH (7.35-7.45) ABG pO2 116 H (83-108) mmHg ABG HCO3 (21-25) mmol/L ABG Total CO2 (19-24) mmol/L ABG O2 Saturation 98.3 H (94-97) % Creatinine 1.06 H (0.52-1.04) mg/dL POC Glucose (mg/dL) (75-99) mg/dL Calcium 8.1 L (8.4-10.2) mg/dL Alkaline Phosphatase (38-126) U/L Total Creatine Kinase (30-135) U/L Total Protein (6.3-8.2) g/dL Albumin (3.5-5.0) g/dL Free T3 pg/mL (2.8-5.3) pg/ml Urine Protein Trace H (Negative) 12/02/17 Range/Units 11:39 MCHC (31.0-37.0) g/dL RDW (11.5-15.5) % PT (9.0-12.0) sec INR (<1.2) ABG pH (7.35-7.45) ABG pO2 (83-108) mmHg ABG HCO3 (21-25) mmol/L ABG Total CO2 (19-24) mmol/L ABG O2 Saturation (94-97) % Creatinine (0.52-1.04) mg/dL POC Glucose (mg/dL) 109 H (75-99) mg/dL Calcium (8.4-10.2) mg/dL Alkaline Phosphatase (38-126) U/L Total Creatine Kinase (30-135) U/L Total Protein (6.3-8.2) g/dL Albumin (3.5-5.0) g/dL Free T3 pg/mL (2.8-5.3) pg/ml Urine Protein (Negative) Microbiology - Last 24 Hours (Table) 12/02/17 07:45 Sputum Culture - Preliminary Sputum Thrombosis Risk Factor Assmnt - Choose All That Apply Any of the Below Risk Factors Present?: Yes Each Factor Represents 1 point: Abnormal pulmonary function (COPD), Medical pt on bed rest, Obesity (BMI >25), Serious lung disease incl. pneumonia (< 1month) Other Risk Factors: Yes Each Risk Factor Represents 2 Points: Age 61-74 years, Patient confined to bed, Malignancy Other congenital or acquired thrombophilia - If yes, enter type in comment: No Thrombosis Risk Factor Assessment Total Risk Factor Score: 10 Thrombosis Risk Factor Assessment Level: High Risk Assessment and Plan Assessment: 1. Acute on chronic hypoxic respiratory failure requiring mechanical ventilation. Secondary to an acute CHF and COPD exacerbation. Pulmonary service following closely 2. Acute COPD exacerbation: Continue nebulizer treatments and IV Solu-Medrol 3. Acute diastolic congestive heart failure exacerbation: Cardiology is ordered a repeat echo. Continue IV Lasix. BNP 9340. Echo from 11/13/2017 shows an EF of 55-60% 4. Atrial fibrillation with rapid ventricular response: Cardiology is ordered IV amiodarone 5. Constipation with abdominal x-ray revealing stool in the colon. We'll give soapsuds enema 6. Possible pneumonia: Patient has been placed on cefepime and vancomycin 7. Hypothyroidism resume Synthroid 8. Recent hospitalization with febrile illness and gastroenteritis 9. History of trigeminal neuralgia 10. 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 Patient had nosebleed present on admission. ENT was consulted 11. History of coronary artery disease with cardiac stent 12. History of CVA 13. History of vascular dementia Time with Patient: Greater than 30 (Greater than 50% of the total time spent in counseling and coordination of care.I performed an examination of the patient and discussed their management with the physician Glass Presser. I have reviewed the Physician Glass Presser's notes and agree with the documented findings and plan of care)
--- NOTE | 2017-12-02 12:58 | P.CRDCN ---
History of Present Illness Consult date: 12/02/17 History of present illness: This is a pleasant 67-year-old female patient with a past medical history significant for coronary artery disease and prior stenting, peripheral arterial disease and prior stenting as well, chronic obstructive pulmonary disease, as well as paroxysmal atrial fibrillation who just was discharged from the hospital yesterday was brought to the hospital again with shortness of breath and acute respiratory failure. The patient was in acute respiratory distress in the emergency room where she was intubated and was transferred to the intensive care unit. No indication in the chart that the patient didn't have any symptoms of chest pain or chest discomfort. Currently the patient is intubated and she is on ventilator and she is requiring high FiO2. Beside that she is in shock and she is on Levophed drip. Also she is in atrial fibrillation which is not known to her with a heart rate around 110 bpm. The EKG showed atrial fibrillation with RVR. The chest x-ray showed findings consistent with CHF. The BNP came in to be severe lead elevated as well. The first set of troponin came in to be within normal limits at the second troponin came in to be slightly elevated. Blood and urine culture were obtained and distal pending at this point. Lactic acid was elevated. The hemoglobin is within normal limits as well as the kidney function. An certified medical biller is on the case at this point. The patient just was discharged from the hospital recently after she was admitted with acute respiratory failure secondary to COPD exacerbation. She underwent an echocardiogram recently and that revealed normal LV function without any significant valvular abnormalities. Past Medical History Past Medical History: Atrial Fibrillation, Asthma, Coronary Artery Disease (CAD) , Cancer, COPD, CVA/TIA, Eye Disorder, GERD/Reflux, Hyperlipidemia, Hypertension , Memory Impairment, Myocardial Infarction ([place]), Osteoarthritis (OA), Respiratory Disorder, Sleep Apnea/CPAP/BIPAP, Thyroid Disorder, Vascular Disorder Additional Past Medical History / Comment(s): Pt recently admitted to [facility] on 11/25/17 febrile, recent UTI, hypotensive. 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 Last Myocardial Infarction Date:: 11/03/14 History of Any Multi-Drug Resistant Organisms: None Reported Date of last positivie culture/infection: None Past Surgical History: Adenoidectomy, Bladder Surgery, Cholecystectomy, Ear Surgery, Heart Catheterization With Stent, Hysterectomy, Orthopedic Surgery, Tonsillectomy Additional Past Surgical History / Comment(s): 11/28/14 PTCA with stents, left CAROTID ENDARTERECTOMY, MULTIPLE BILATERAL STENTS IN LOWER EXTREMITIES, R elbow surgery as a child, R ear surgery for blockage, bilateral ankle arthroscopies, bilateral knee arthroscopies, deviated septal surgery, L great toe pinned, colonoscopies/benign polypectomy, R nephrectomy and partial bladder removal, skin lesion from nose. Past Anesthesia/Blood Transfusion Reactions: Motion Sickness Date of Last Stent Placement:: 10/2014 Smoking Status: Former smoker - Past Family History Mother Family Medical History: COPD Additional Family Medical History / Comment(s): Mother is . She from respiratory failure. Father Family Medical History: Coronary Artery Disease (CAD), Myocardial Infarction ([place] ) Additional Family Medical History / Comment(s): Father had gout Medications and Allergies Home Medications Medication Instructions Recorded Confirmed Type PARoxetine HCL 30 mg PO HS 07/02/14 12/02/17 History OXcarbazepine [Trileptal] 150 mg PO HS 11/04/14 12/02/17 History Melatonin 3 mg PO HS 03/05/16 12/02/17 History Atorvastatin Calcium [Lipitor] 20 mg PO DAILY 06/13/17 12/02/17 History Calcium Polycarbophil [Fibercon] 1,250 mg PO DAILY 06/13/17 12/02/17 History Clopidogrel Bisulfate [Plavix] 75 mg PO DAILY 06/13/17 12/02/17 History Ferrous Sulfate [Iron (65 MG 325 mg PO DAILY 06/13/17 12/02/17 History Elemental)] Furosemide [Lasix] 40 mg PO DAILY 06/13/17 12/02/17 History Levothyroxine Sodium [Synthroid] 100 mcg PO DAILY 06/13/17 12/02/17 History Lurasidone HCl [Latuda] 20 mg PO DAILY 06/13/17 12/02/17 History Magnesium Oxide [Mag-Ox] 400 mg PO DAILY 06/13/17 12/02/17 History Montelukast [Singulair] 10 mg PO HS 06/13/17 12/02/17 History Pantoprazole Sodium [Protonix] 40 mg PO DAILY 06/13/17 12/02/17 History Potassium Chloride [Klor-Con 10] 10 meq PO DAILY 06/13/17 12/02/17 History Fluticasone/Vilanterol [Breo 1 puff INHALATION RT-DAILY 06/14/17 12/02/17 History Ellipta 100-25 Mcg Inhaler] Tiotropium [place] [Spiriva] 1 cap INHALATION RT-DAILY 06/14/17 12/02/17 History Rivaroxaban [Xarelto] 15 mg PO W/SUPPER #30 tab 06/16/17 12/02/17 Rx Multivitamins, Thera [Multivitamin 1 each PO DAILY@1200 #30 tab 11/15/17 Rx (formulary)] Albuterol Nebulized [Ventolin 2.5 mg INHALATION RT-QID nebu 12/01/17 12/02/17 Rx Nebulized] Docusate [Colace] 100 mg PO BID cap 12/01/17 12/02/17 Rx Metoprolol Tartrate [Lopressor] 50 mg PO TID tab 12/01/17 12/02/17 Rx Nitroglycerin Sl Tabs [Nitrostat] 0.4 mg SUBLINGUAL Q5M PRN tab 12/01/17 Rx Polyethylene Glycol 3350 [Miralax] 17 gm PO HS powd.pack 12/01/17 12/02/17 Rx Allergies Allergy/AdvReac Type Severity Reaction Status Date / Time latex Allergy Rash/Hives Verified 11/24/17 20:05 Penicillins Allergy Unknown Verified 11/24/17 20:05 Childhood Physical Exam Vitals: Vital Signs Temp Pulse Resp BP Pulse Ox 12/02/17 12:00 98.6 F 133 H 21 101/62 96 12/02/17 11:30 136 H 20 95 12/02/17 11:00 132 H 22 110/57 97 12/02/17 10:40 127 H 25 H 116/65 97 12/02/17 10:20 130 H 24 124/60 97 04/12/18 10:00 120 H 26 H 110/60 97 12/02/17 09:40 139 H 26 H 115/83 97 12/02/17 09:20 121 H 26 H 59/46 95 12/02/17 09:00 105 H 30 H 72/45 95 12/02/17 08:50 112 H 31 H 12/02/17 08:40 98.8 F 119 H 33 H 94 L 12/02/17 08:20 99.4 F 109 H 32 H 121/55 96 12/02/17 08:08 113 H 32 H 133/52 95 12/02/17 07:57 129 H 32 H 98/53 12/02/17 07:29 128 H 32 H 77/53 94 L 12/02/17 06:41 122 H 35 H 112/71 98 12/02/17 06:30 140 H 34 H 149/101 95 12/02/17 06:16 132 H 35 H 121/82 96 12/02/17 06:06 150 H 30 H 173/98 95 12/02/17 05:56 142 H 30 H 212/77 90 L 12/02/17 05:39 155 H 12/02/17 05:24 135 H 12/02/17 05:05 155 H 34 H 186/92 90 L 12/02/17 04:50 144 H 35 H 168/98 82 L 12/02/17 03:24 102 H 20 126/94 97 12/02/17 01:55 103 H 20 101/79 94 L 12/02/17 00:44 97.9 F 122 H 103/63 77 L Intake and Output 12/01/17 12/02/17 12/02/17 22:59 06:59 14:59 Intake Total 1.125 216.413 Output Total 330 Balance 1.125 -113.587 Intake: IV 80 0.9ns 80 Intake, IV Titration 1.125 136.413 Amount Dextrose 5% in Water 100 100 ml @ 618 mls/hr IV .Q10M ONE with Amiodarone 150 mg Rx#:[id number] Diltiazem 50 mg In Sodium 15.417 Chloride 0.9% 40 ml @ 5 MG/HR 5 mls/hr IV .Q10H ONE Rx#:[id number] Propofol 1,000 mg In 1.125 20.996 Empty Bag 1 bag @ Titrate IV .Q0M [facility] Rx#: [id number] Output: Urine 330 Other: Weight 72.575 kg - Constitutional General appearance: mild distress - Respiratory Respiratory: bilateral: rales - Cardiovascular Rhythm: irregularly irregular Heart sounds: normal: S1, S2 Results 12/02/17 01:03 12/02/17 09:42 Cardiac Enzymes 12/02/17 12/02/17 12/02/17 Range/Units 01:03 01:03 11:35 AST 33 (14-36) U/L CK-MB (CK-2) 0.6 1.1 (0.0-2.4) ng/mL Troponin I <0.012 0.209 H* (0.000-0.034) ng/mL Coagulation 12/02/17 Range/Units 01:03 PT 14.7 H (9.0-12.0) sec APTT 28.2 (22.0-30.0) sec CBC 12/02/17 Range/Units 01:03 WBC 6.7 (3.8-10.6) k/uL RBC 4.54 (3.80-5.40) m/uL Hgb 11.6 (11.4-16.0) gm/dL Hct 37.8 (34.0-46.0) % Plt Count 303 (150-450) k/uL Comprehensive Metabolic Panel 12/02/17 12/02/17 Range/Units 01:03 09:42 Sodium 139 140 (137-145) mmol/L Potassium 4.2 3.9 (3.5-5.1) mmol/L Chloride 99 103 (98-107) mmol/L Carbon Dioxide 28 23 (22-30) mmol/L BUN 14 15 (7-17) mg/dL Creatinine 1.00 1.06 H (0.52-1.04) mg/dL Glucose 93 90 (74-99) mg/dL Calcium 9.0 8.1 L (8.4-10.2) mg/dL AST 33 (14-36) U/L ALT 44 (9-52) U/L Alkaline Phosphatase 152 H (38-126) U/L Total Protein 5.7 L (6.3-8.2) g/dL Albumin 3.2 L (3.5-5.0) g/dL Current Medications Generic Name Dose Route Start Last Admin Trade Name Freq PRN Reason Stop Dose Admin Albuterol/Ipratropium 3 ml 12/02/17 08:00 Duoneb 0.5 Mg-3 Mg/3 Ml Soln INHALATION RT-Q4H AAKASH Albuterol/Ipratropium 3 ml 12/02/17 05:59 Duoneb 0.5 Mg-3 Mg/3 Ml Soln INHALATION RT-Q2H PRN Shortness Of Breath Or Wheezing Atorvastatin Calcium 20 mg 12/03/17 09:00 Lipitor PO DAILY AAKASH Budesonide 1 mg 12/02/17 20:00 Pulmicort INHALATION RT-BID AAKASH Chlorhexidine Gluconate 15 ml 12/02/17 09:30 12/02/17 11:00 Peridex MUCOUS MEM 15 ml BID AAKASH Administration Furosemide 60 mg 12/02/17 18:00 Lasix IV Q12H AAKASH Propofol 1,000 mg/ IV Solution 100 mls @ 0 mls/hr 12/02/17 06:00 12/02/17 08: 14 IV 19.97 mcg/kg/min .Q0M AAKASH 8.7 mls/hr Protocol Titration Titrate Nitroglycerin/Dextrose 50 mg/ 250 mls @ 3 mls/hr 12/02/17 06:45 12/02/17 07: 19 IV Solution IV Not Given .Q24H AAKASH Protocol 10 MCG/MIN Sodium Chloride 1,000 mls @ 20 mls/hr 12/02/17 09:30 12/02/17 11:01 Saline 0.9% IV 20 mls/hr .Q24H AAKASH Administration Amiodarone HCl 450 mg/ 259 mls @ 34.53 mls/hr 12/02/17 11:30 12/02/17 12:17 Dextrose/Water IV 12/03/17 11:23 1 mg/min .Q7H31M AAKASH 34.53 mls/hr Protocol Administration 1 MG/MIN Cefepime HCl 1 gm/ Sodium 50 mls @ 100 mls/hr 12/02/17 12:15 12/02/17 12:30 Chloride IVPB 100 mls/hr Q12HR AAKASH Administration Vancomycin HCl 1,250 mg/ 250 mls @ 125 mls/hr 12/02/17 13:00 Sodium Chloride IVPB 12/02/17 14:59 ONCE ONE Vancomycin HCl 1,250 mg/ 250 mls @ 125 mls/hr 12/03/17 00:00 Sodium Chloride IVPB Q16H AAKASH Levothyroxine Sodium 100 mcg 12/02/17 12:15 12/02/17 12:30 Synthroid PO 100 mcg DAILY@0630 AAKASH Administration Lorazepam 1 mg 12/02/17 05:59 Ativan IV Q1HR PRN Mild Agitation Methylprednisolone Sodium Succinate 60 mg 12/02/17 12:00 12/02/17 12:16 Solu-Medrol IV 60 mg Q6HR AAKASH Administration Naloxone HCl 0.2 mg 12/02/17 09:16 Narcan IV Q2M PRN Opioid Reversal Pantoprazole Sodium 40 mg 12/03/17 09:00 Protonix IV DAILY AAKASH Intake and Output 12/01/17 12/02/17 12/02/17 22:59 06:59 14:59 Intake Total 1.125 216.413 Output Total 330 Balance 1.125 -113.587 Intake: IV 80 0.9ns 80 Intake, IV Titration 1.125 136.413 Amount Dextrose 5% in Water 100 100 ml @ 618 mls/hr IV .Q10M ONE with Amiodarone 150 mg Rx#:[id number] Diltiazem 50 mg In Sodium 15.417 Chloride 0.9% 40 ml @ 5 MG/HR 5 mls/hr IV .Q10H ONE Rx#:[id number] Propofol 1,000 mg In 1.125 20.996 Empty Bag 1 bag @ Titrate IV .Q0M AAKASH Rx#: [id number] Output: Urine 330 Other: Weight 72.575 kg 12/02/17 01:03 12/02/17 09:42 Assessment and Plan Assessment: Assessment #1 acute hypoxic respiratory failure #2 COPD exacerbation. #3 congestive heart failure exacerbation secondary to diastole dysfunction #4 atrial fibrillation with uncontrolled heart rate #5 hypertension requiring vasopressors. Sepsis to be ruled out. #6 known severe underlying coronary artery disease and prior revascularization #7 known severe peripheral arterial disease as well #8 known paroxysmal atrial fibrillation #9 multiple comorbid conditions Plan #1 the patient was receiving Cardizem IV. I will stop the Cardizem IV in view of the low blood pressure and start the patient on amiodarone IV. #2 hold her by mouth blood pressure medications including the metoprolol and lisinopril #3 continue supporting the blood pressure with Levophed and try to wean her from the Levaquin if it's possible #4 continue oral anticoagulation using Xarelto. #5 continue antiplatelet with Plavix. I will stop the aspirin #6 obtain serial cardiac enzymes to rule out any acute coronary event #Follow-up with the patient. Thank you for allowing us participate in her care and we'll continue following up with the patient
[2017-12-02] MEDS ORDERED: VANCOMYCIN 1,250 MG in SODIUM CHLORIDE 0.9% 250 ML IVPB ONE (13:00)
--- NOTE | 2017-12-02 14:39 | CDI ---
Last Revision, July 2017 Documentation Clarification Form Date: 12/02/17 From: Marycruz Bray RN Admit Date: 12/02/2017 4:22:00 AM Patient Name: Kathy Mckeon Visit Number: [id number] ATTENTION: The Clinical Documentation Specialists (CDI) and [facility] Coding Staff appreciate your assistance in clarifying documentation. Please respond to the clarification below the line at the bottom and electronically sign. The CDI & [facility] Coding staff will review the response and follow-up if needed. Please note: Queries are made part of the Legal Health Record. If you have any questions, please contact the author of this message via ITS. Dr. Abelardo Kelly, Pneumonia was documented in your notes on 12/02 in H&P. History/Risk Factors: a fib, chf, copd, cva, trigeminal neuralgia, mi, hypothyroidism, cad with stent, kidney cancer status post right nephrectormy, left carotid endarterectomy. asthma, gerd, htn, hyperlipidemia, memory impairment, oa, slep apnea, vascular disorderpt discharged yesterday Clinical Indicators: WBC on admission 6.7 X-ray: bilateral infiltrates Treatment: Antibiotics: IV Cefepime, IV Vanco O2: Mechanical vent Breathing Tx: Duoneb In order to capture the severity of condition, please clarify if the condition signifies and you are treating for: Bacterial Pneumonia, specify causal organism (if known) Gram Negative Pneumonia Other bacteria (please specify) Viral Pneumonia, specify casual organism (if known) Healthcare Acquired Pneumonia/Pneumonia, unspecified Other, please specify Unable to determine Please continue to document in your progress notes, under the line below and/or in the discharge summary in order to capture severity of illness and risk of mortality. Include clinical findings that support your diagnosis. MTDD
[2017-12-02] MEDS ORDERED: HEPARIN SODIUM,PORCINE 5,000 UNIT/ML 1 ML VIAL SQ SCH (16:00)
[2017-12-02] MEDS: PROPOFOL 1,000 MG in EMPTY BAG 1 BAG IV SCH ×2 (16:00→21:17)
[2017-12-02] MEDS ORDERED: NOREPINEPHRIN 4 MG-0.9% NS PMX 4 MG/250 ML ML IV SCH (16:00)
[2017-12-02] MEDS: IPRATROPIUM-ALBUTEROL 3 ML NEB INHALATION SCH ×5 (16:21→23:38)
[2017-12-02] MEDS: FUROSEMIDE 10 MG/ML 10 ML VIAL IV SCH (18:04)
[2017-12-02] MEDS: RIVAROXABAN 15 MG TAB PO SCH (18:04)
[2017-12-02 19:07] LABS: Hemoglobin A1C 6.1 % (4.0-6.0)
[2017-12-02] MEDS: BUDESONIDE 1 MG/2 ML NEBU INHALATION SCH (19:48)
[2017-12-02 23:01] LABS: Creatine Kinase MB 1.4 ng/mL (0.0-2.4)
[2017-12-02 23:08] LABS: Troponin I 0.155 ng/mL (0.000-0.034)
[2017-12-02] MEDS: VANCOMYCIN 1,250 MG in SODIUM CHLORIDE 0.9% 250 ML IVPB SCH (23:47)
[2017-12-03 00:15] LABS: Glucose,Whole Blood 142 mg/dL (75-99)
[2017-12-03] MEDS: IPRATROPIUM-ALBUTEROL 3 ML NEB INHALATION SCH ×5 (03:40→19:55)
[2017-12-03] MEDS: methylPREDNISolone SOD SUCCI 125 MG/2 ML VIAL IV SCH ×4 (05:21→23:33)
[2017-12-03 05:22] LABS: Anisocytosis Slight; Basophils % (A) 0 %; Eosinophils % (A) 0 %; HCT 35.4 % (34.0-46.0); HGB 11.4 gm/dL (11.4-16.0); Hypochromasia Slight; Lymphocytes # (A) 0.6 k/uL (1.0-4.8); Lymphocytes % (A) 5 %; MCH 26.6 pg (25.0-35.0); MCHC 32.3 g/dL (31.0-37.0); MCV 82.5 fL (80.0-100.0); Mean Platelet Volume 6.7; Monocytes # (A) 0.2 k/uL (0-1.0); Monocytes % (A) 2 %; Neutrophils # (A) 9.6 k/uL (1.3-7.7); Neutrophils % (A) 92 %; Platelet Count 304 k/uL (150-450); RBC 4.29 m/uL (3.80-5.40); RDW 16.9 % (11.5-15.5); WBC 10.5 k/uL (3.8-10.6)
[2017-12-03] MEDS: FUROSEMIDE 10 MG/ML 10 ML VIAL IV SCH ×2 (05:22→17:57)
[2017-12-03] MEDS: NITROGLYCERIN-D5W PMX 50 MG in DEXTROSE/WATER 1 250ML.BAG IV SCH (05:22)
[2017-12-03] MEDS: LEVOTHYROXINE 100 MCG TAB PO SCH (05:33)
[2017-12-03 06:03] LABS: ABG Base Excess -0.5 mmol/L; ABG HCO3 24 mmol/L (21-25); ABG Oxygen Saturation 97.9 % (94-97); ABG PCO2 36 mmHg (35-45); ABG PH 7.43 (7.35-7.45); ABG PO2 107 mmHg (83-108); ABG TCO2 25 mmol/L (19-24)
[2017-12-03 06:32] LABS: Glucose,Whole Blood 153 mg/dL (75-99)
[2017-12-03 06:41] LABS: Calcium 8.4 mg/dL (8.4-10.2); Magnesium 1.6 mg/dL (1.6-2.3); Phosphorus 4.2 mg/dL (2.5-4.5); Potassium 3.7 mmol/L (3.5-5.1)
[2017-12-03] MEDS ORDERED: Potassium Replacement Protocol 1 EACH MISC MISCELLANE PRN (06:47)
[2017-12-03] MEDS ORDERED: Magnesium Replacement Protocol 1 EACH MISC MISCELLANE PRN (06:48)
[2017-12-03] MEDS ORDERED: POTASSIUM BICARBONATE/CIT AC 20 MEQ TABLET.EFF NG-TUBE SCH (07:00)
[2017-12-03] MEDS: MAGNESIUM SULFATE-D5W PMX 1 GM in DEXTROSE/WATER 1 100ML.BAG IVPB SCH ×2 (07:12→09:40)
--- NOTE | 2017-12-03 07:17 | XR ---
EXAMINATION TYPE: XR chest 1V DATE OF EXAM: 12/03/2017 COMPARISON: 12/02/2017 HISTORY: SOB, Follow Up FINDINGS: Indwelling tubes and catheters are unchanged. No change in bibasilar opacities. Stable appearance of the cardio-mediastinal structures at this time. Pleural effusion unchanged. IMPRESSION: 1. Stable portable chest. Clinical correlation and follow up until resolution is recommended.
[2017-12-03] MEDS: BUDESONIDE 1 MG/2 ML NEBU INHALATION SCH ×2 (08:02→19:55)
[2017-12-03] MEDS: SODIUM CHLORIDE 0.9% 1,000 ML IV SCH (08:03)
[2017-12-03] MEDS: CLOPIDOGREL 75 MG TAB PO SCH (08:03)
[2017-12-03] MEDS: ATORVASTATIN 20 MG TAB PO SCH (08:03)
[2017-12-03] MEDS: CHLORHEXIDINE GLUCONATE 15 ML CUP MUCOUS MEM SCH (08:03)
[2017-12-03] MEDS: PANTOPRAZOLE 40 MG/10 ML VIAL IV SCH (08:03)
[2017-12-03] MEDS: CEFEPIME 1 GM in SODIUM CHLORIDE 0.9% 50 ML IVPB SCH ×2 (08:11→20:29)
[2017-12-03] MEDS ORDERED: ASPIRIN 325 MG TAB PO SCH (09:00)
--- NOTE | 2017-12-03 09:54 | P.PN ---
Subjective Progress Note Date: 12/03/17 HPI: This is a 67-year-old female patient who is well-known to our services being seen examined and evaluated today on rounds. This patient recently was admitted to the hospital for 2017 to 12/01/2017 for atrial fibrillation, gastroenteritis, and acute COPD exacerbation. She returned to the emergency room on 12/02/2017 with complaints of dyspnea associated with her COPD. The patient initially declined any breathing treatments at that time related to concern of exacerbating her atrial fibrillation. It was noted that the patient also had a bloody nose at night and the patient was on Plavix since oral toe. She also complained of some mild diffuse abdominal discomfort and is known to have chronic IBS and constipation. While in the emergency room the initial chest x-ray shows no changes from her previous admission. Her abdominal x-ray did show some marked stool. Also while in the emergency room the patient was noted to have a rapid decline in her respiratory status. Her oxygen saturations were in the 70s and she required an increase in her oxygen demands and ultimately on BiPAP. A new chest x-ray was obtained a few hours later which did show new bilateral central edema and infiltrates. The patient's worsening respiratory status continued she was ultimately intubated in the emergency room and admitted to the intensive care unit with atrial fibrillation , CHF, acute hypoxic respiratory failure. Currently the patient is being examined and the intensive care unit and is on mechanical ventilation with assist control mode respiratory rate of 16, tidal volume 400, FiO2 80% and a PEEP of 5. She is synchronous with the vent. She is on propofol at this time. Also leaves fed has also been started due to hypotension currently she is on 12 mild aches and is responding well. Stat lab draws were obtained of her lactic acid and it came back at 1.7, the patient's white count is normal at 6.7 , hemoglobin is 11.6, sodium 139, potassium 4.2, chloride 99, CO2 28, BUN 14, creatinine 1, magnesium 1.9. Patient's ABGs were obtained this morning and did show a pH of 7.19 pCO2 43 pO2 122 and a bicarb of 16. We will obtain a stat band aid machine operator all of this ABG. Fluids have been switched to KVO, blood urine and sputum cultures are also sent. Patient continues to be tachycardic cardiology is on consult and have been adjusting cardiac medications in that regard. A PICC line is requested from interventional radiology and we are currently awaiting on responsive whether that can happen at this time or not. If the IR Doctor is unable to insert a PICC line then the patient will require a central line placement. We will obtain consent for these procedures with the patient's daughter. 12/03/17- patient is being seen examined evaluated today on rounds in the intensive care unit. The patient was noted to have an increase in her troponin levels overnight. Cardiology is aware. The patient continues on an amiodarone drip at this time and her rate is better controlled. We will fed has been off since midnight last night. She continues to diuresis and is having good output with the Lasix. Her chest x-ray is reviewed and has remain unchanged she currently continues on mechanical ventilation with propofol for sedation. Current ventilator settings are assist control mode with respiratory rate of 16 , tidal volume of 400, FiO2 50% and a PEEP of 5. She is synchronous with the vent. Her labs are reviewed. Her potassium and magnesium are both being replaced today. ABGs reviewed and are within normal limits. A sedation holiday is currently being performed. The patient's ventilator settings are being adjusted to FiO2 of 40% and a PEEP of 5. We will continue to monitor to see if she tolerates these ventilator changes and if so will do a CPAP trial with weaning parameters with pressure support of 5/5. Patient did have a soapsuds enema yesterday without results. Bowel sounds remain hypoactive, patient is passing flatus. She is on tube feeds and is tolerating that well well and is at goal. Of note patient also underwent a PICC line insertion yesterday. Objective - Vital Signs Vital signs: Vital Signs Temp 97.7 F 12/03/17 04:00 Pulse 77 12/03/17 08:25 Resp 20 12/03/17 07:00 BP 123/77 12/03/17 07:00 Pulse Ox 98 12/03/17 07:00 Intake & Output 12/02/17 12/03/17 12/03/17 18:59 06:59 18:59 Intake Total 810.400 6349.057 369 Output Total 880 1705 630 Balance 34.203 -633.943 -261 Weight 72.575 kg Intake: IV 220 220 210 0.9ns 220 220 20 Cefepime 1 gm In Sodium 50 Chloride 0.9% 50 ml @ 100 mls/hr IVPB Q12HR [facility] Rx #:[id number] Magnesium Sulfate-D5w Pmx 100 1 gm In Dextrose/Water 1 100ml.bag @ 100 mls/hr IVPB Q1H [facility] Rx#: [id number] Sodium Chloride 0.9% 1, 40 000 ml @ 20 mls/hr IV . Q24H [facility] Rx#:[id number] Intake, IV Titration 674.203 227.057 Amount Amiodarone 450 mg In 208.907 111.654 Dextrose 5% in Water 250 ml @ 1 MG/MIN 34.53 mls/ hr IV .Q7H31M [facility] Rx#: [id number] Cefepime 1 gm In Sodium 50 50 Chloride 0.9% 50 ml @ 100 mls/hr IVPB Q12HR [facility] Rx #:[id number] Dextrose 5% in Water 100 100 ml @ 618 mls/hr IV .Q10M ONE with Amiodarone 150 mg Rx#:[id number] Diltiazem 50 mg In Sodium 15.417 Chloride 0.9% 40 ml @ 5 MG/HR 5 mls/hr IV .Q10H [facility] Rx#:[id number] Norepinephrin 4 mg-0.9% 19.438 Ns Pmx 4 mg In 250 ml @ Titrate IV .Q0M [facility] Rx#: [id number] Propofol 1,000 mg In 49.879 Empty Bag 1 bag @ Titrate IV .Q0M [facility] Rx#: [id number] Propofol 1,000 mg In 45.965 Empty Bag 1 bag @ Titrate IV .Q0M [facility] Rx#: [id number] Vancomycin 1,250 mg In 250 Sodium Chloride 0.9% 250 ml @ 125 mls/hr IVPB Q16H [facility] Rx#:[id number] Tube Feeding 20 504 129 Other 120 30 Output: Urine 880 1705 630 Other: Voiding Method Indwelling Catheter Indwelling Catheter # Bowel Movements 0 - Exam GENERAL EXAM: On mechanical ventilation with sedation HEAD: Normocephalic. EYES: Normal reaction of pupils, equal size. NOSE: Clear with pink turbinates. THROAT: No erythema or exudates. NECK: No masses, no JVD. CHEST: No chest wall deformity. LUNGS: Equal air entry with some posterior crackles. CVS: S1 and S2 normal with no audible mumurs, regular rhythm, tachycardic. ABDOMEN: No hepatosplenomegaly, normal bowel sounds, no guarding or rigidity. EXTREMITIES: No edema noted, pedal pulses palpable. CENTRAL NERVOUS SYSTEM: On mechanical ventilation with sedation. - Labs CBC & Chem 7: 12/03/17 05:01 12/03/17 05:01 Labs: Abnormal Lab Results - Last 24 Hours (Table) 12/02/17 12/02/17 12/02/17 Range/Units 09:24 09:42 09:42 RDW (11.5-15.5) % Neutrophils # (1.3-7.7) k/uL Lymphocytes # (1.0-4.8) k/uL ABG pO2 (83-108) mmHg ABG Total CO2 (19-24) mmol/L ABG O2 Saturation (94-97) % Carbon Dioxide (22-30) mmol/L BUN (7-17) mg/dL Creatinine 1.06 H (0.52-1.04) mg/dL Glucose (74-99) mg/dL POC Glucose (mg/dL) (75-99) mg/dL Hemoglobin A1c 6.1 H (4.0-6.0) % Calcium 8.1 L (8.4-10.2) mg/dL Total Creatine Kinase (30-135) U/L Troponin I (0.000-0.034) ng/mL Urine Protein Trace H (Negative) 12/02/17 12/02/17 12/02/17 Range/Units 10:43 11:35 11:39 RDW (11.5-15.5) % Neutrophils # (1.3-7.7) k/uL Lymphocytes # (1.0-4.8) k/uL ABG pO2 116 H (83-108) mmHg ABG Total CO2 (19-24) mmol/L ABG O2 Saturation 98.3 H (94-97) % Carbon Dioxide (22-30) mmol/L BUN (7-17) mg/dL Creatinine (0.52-1.04) mg/dL Glucose (74-99) mg/dL POC Glucose (mg/dL) 109 H (75-99) mg/dL Hemoglobin A1c (4.0-6.0) % Calcium (8.4-10.2) mg/dL Total Creatine Kinase 26 L (30-135) U/L Troponin I 0.209 H* (0.000-0.034) ng/mL Urine Protein (Negative) 12/02/17 12/03/17 12/03/17 Range/Units 21:49 00:12 05:01 RDW 16.9 H (11.5-15.5) % Neutrophils # 9.6 H (1.3-7.7) k/uL Lymphocytes # 0.6 L (1.0-4.8) k/uL ABG pO2 (83-108) mmHg ABG Total CO2 (19-24) mmol/L ABG O2 Saturation (94-97) % Carbon Dioxide (22-30) mmol/L BUN (7-17) mg/dL Creatinine (0.52-1.04) mg/dL Glucose (74-99) mg/dL POC Glucose (mg/dL) 142 H (75-99) mg/dL Hemoglobin A1c (4.0-6.0) % Calcium (8.4-10.2) mg/dL Total Creatine Kinase 23 L (30-135) U/L Troponin I 0.155 H* (0.000-0.034) ng/mL Urine Protein (Negative) 12/03/17 12/03/17 12/03/17 Range/Units 05:01 06:00 06:30 RDW (11.5-15.5) % Neutrophils # (1.3-7.7) k/uL Lymphocytes # (1.0-4.8) k/uL ABG pO2 (83-108) mmHg ABG Total CO2 25 H (19-24) mmol/L ABG O2 Saturation 97.9 H (94-97) % Carbon Dioxide 21 L (22-30) mmol/L BUN 21 H (7-17) mg/dL Creatinine 1.12 H (0.52-1.04) mg/dL Glucose 150 H (74-99) mg/dL POC Glucose (mg/dL) 153 H (75-99) mg/dL Hemoglobin A1c (4.0-6.0) % Calcium (8.4-10.2) mg/dL Total Creatine Kinase (30-135) U/L Troponin I (0.000-0.034) ng/mL Urine Protein (Negative) Microbiology - Last 24 Hours (Table) 04/12/18 07:45 Gram Stain - Preliminary Sputum Sputum Culture - Preliminary 12/02/17 09:24 Urine Culture - Preliminary Urine,Catheterized Assessment and Plan Assessment: Assessment SIRS 2/4 Acute on chronic hypoxic respiratory distress Atrial fibrillation and tachycardia Acute exacerbation of COPD Acute exacerbation of CHF Abdominal discomfort with marked stool noted on abdominal x-ray Hypotension Possible underlying pneumonia, suspect mixed bacterial, sputum cultures pending Plan Medications have been reviewed and will be continued as ordered. Mechanical ventilation settings were adjusted with an FiO2 to 40% and a PEEP of 5. Patient will undergo a sedation holiday as well as the CPAP trial with weaning parameters. ABGs to be obtained after 30 minutes. Cardiology on consult and currently adjusting cardiac medications. Blood, urine and sputum cultures have been obtained, and are pending. Add budesonide to her current nebulizer treatments. Chlorhexidine, oral care, elevated head of bed for VAP prevention. Continue with pulmonary hygiene, coughing and deep breathing exercises, and supportive care. Supplemental oxygen to maintain oxygen saturations of 92% or better. Continue nebulizer treatments. Continue to monitor I &O. GI and DVT prophylaxis. We will continue to monitor labs/results and adjust treatment as necessary. Further recommendations pending. I performed an examination of the patient and discussed their management with the nurse practitioner. I have reviewed the nurse practitioner's note and agree with the documented findings and plan of care.
--- NOTE | 2017-12-03 10:17 | P.PN ---
Subjective Progress Note Date: 12/03/17 This is a 67 -year-old female, patient of [facility]. She has a known past medical history of atrial fibrillation, congestive heart failure, COPD, CVA, trigeminal neuralgia, [place], hypothyroidism, coronary artery disease with cardiac stent, kidney cancer status post right nephrectomy and left carotid endarterectomy. Patient was just recently discharged yesterday afternoon after being hospitalized for gastroenteritis, constipation, acute kidney injury and atrial fibrillation with rapid ventricular rate. Cardiology had increased metoprolol to 50 mg 3 times a day. Patient was doing well yesterday. She was cleared by all consulting physicians. Patient was eager for discharge home. History has been obtained from chart and nursing staff. Apparently around midnight patient had worsening shortness of breath some abdominal discomfort and a bloody nose. She was brought back into the emergency room by her daughter. After evaluation in the emergency room patient was in a be discharged home. However daughter was concerned and wanted her mother to stay. ENT was consulted in regards to the nosebleed. However, during the night patient went into respiratory failure with evidence of fluid overload. Per ER report patient had a rapid decompensation in the emergency department. Was wheezy. Chest x-ray had concerns of pulmonary edema. Patient became more drowsy. And she required to be intubated. Pulmonary service consulted. Patient was admitted to the ICU. Patient is currently intubated and sedated. Last chest x-ray showing diffuse lung disease stable with bilateral infiltrate and pleural effusion. Underlying CHF or atypical interstitial pneumonia is in the differential diagnosis. Pulmonary service has ordered cefepime and Vanco. IV steroids were ordered in the emergency room. Patient also seen by cardiology in regards to her atrial fibrillation with rapid ventricular response they've placed her on IV amiodarone. Cardizem drip has been discontinued. She also is on IV Lasix for congestive heart failure. Abdominal x-ray still showing evidence of stool in the colon. And it subsided enema has been ordered. She did receive a dose of lactulose in the ER with no results. 12/03/2017 patient remains in the ICU and intubated. She is currently off of the Levophed. She'll have a sedation holiday today and possibly extubation later. She is currently on tube feedings. Chest x-ray showing stable appearance. Sputum culture growing few gram-positive cocci. She did have an increase in her troponins up to 0.209 and then 0.155. Cardiology is aware. Patient remains in A. fib heart rate is controlled. Magnesium and potassium are being replaced. Pulmonary service has adjusted vent settings. Patient received soapsuds enema yesterday with no results Objective - Vital Signs Vital signs: Vital Signs Temp 97.7 F 12/03/17 04:00 Pulse 77 12/03/17 08:25 Resp 20 12/03/17 07:00 BP 123/77 12/03/17 07:00 Pulse Ox 98 12/03/17 07:00 Intake & Output 12/02/17 12/03/17 12/03/17 18:59 06:59 18:59 Intake Total 485.104 6663.057 369 Output Total 880 1705 630 Balance 34.203 -633.943 -261 Weight 72.575 kg Intake: IV 220 220 210 0.9ns 220 220 20 Cefepime 1 gm In Sodium 50 Chloride 0.9% 50 ml @ 100 mls/hr IVPB Q12HR [facility] Rx #:[id number] Magnesium Sulfate-D5w Pmx 100 1 gm In Dextrose/Water 1 100ml.bag @ 100 mls/hr IVPB Q1H [facility] Rx#: [id number] Sodium Chloride 0.9% 1, 40 000 ml @ 20 mls/hr IV . Q24H [facility] Rx#:[id number] Intake, IV Titration 674.203 227.057 Amount Amiodarone 450 mg In 208.907 111.654 Dextrose 5% in Water 250 ml @ 1 MG/MIN 34.53 mls/ hr IV .Q7H31M [facility] Rx#: [id number] Cefepime 1 gm In Sodium 50 50 Chloride 0.9% 50 ml @ 100 mls/hr IVPB Q12HR [facility] Rx #:[id number] Dextrose 5% in Water 100 100 ml @ 618 mls/hr IV .Q10M ONE with Amiodarone 150 mg Rx#:[id number] Diltiazem 50 mg In Sodium 15.417 Chloride 0.9% 40 ml @ 5 MG/HR 5 mls/hr IV .Q10H [facility] Rx#:[id number] Norepinephrin 4 mg-0.9% 19.438 Ns Pmx 4 mg In 250 ml @ Titrate IV .Q0M [facility] Rx#: [id number] Propofol 1,000 mg In 49.879 Empty Bag 1 bag @ Titrate IV .Q0M [facility] Rx#: [id number] Propofol 1,000 mg In 45.965 Empty Bag 1 bag @ Titrate IV .Q0M [facility] Rx#: [id number] Vancomycin 1,250 mg In 250 Sodium Chloride 0.9% 250 ml @ 125 mls/hr IVPB Q16H [facility] Rx#:[id number] Tube Feeding 20 504 129 Other 120 30 Output: Urine 880 1705 630 Other: Voiding Method Indwelling Catheter Indwelling Catheter # Bowel Movements 0 - Exam Head normocephalic Neck supple Lungs clear to auscultation bilaterally no wheezing or crackles Heart regular rate and rhythm S1-S2, no rub or gallop Abdomen is soft nontender nondistended positive bowel sounds no hepatosplenomegaly Extremities no edema Neuro patient is intubated and sedated - Labs CBC & Chem 7: 12/03/17 05:01 12/03/17 05:01 Labs: Abnormal Lab Results - Last 24 Hours (Table) 12/02/17 12/02/17 12/02/17 Range/Units 09:42 09:42 10:43 RDW (11.5-15.5) % Neutrophils # (1.3-7.7) k/uL Lymphocytes # (1.0-4.8) k/uL ABG pO2 116 H (83-108) mmHg ABG Total CO2 (19-24) mmol/L ABG O2 Saturation 98.3 H (94-97) % Carbon Dioxide (22-30) mmol/L BUN (7-17) mg/dL Creatinine 1.06 H (0.52-1.04) mg/dL Glucose (74-99) mg/dL POC Glucose (mg/dL) (75-99) mg/dL Hemoglobin A1c 6.1 H (4.0-6.0) % Calcium 8.1 L (8.4-10.2) mg/dL Total Creatine Kinase (30-135) U/L Troponin I (0.000-0.034) ng/mL 12/02/17 12/02/17 12/02/17 Range/Units 11:35 11:39 21:49 RDW (11.5-15.5) % Neutrophils # (1.3-7.7) k/uL Lymphocytes # (1.0-4.8) k/uL ABG pO2 (83-108) mmHg ABG Total CO2 (19-24) mmol/L ABG O2 Saturation (94-97) % Carbon Dioxide (22-30) mmol/L BUN (7-17) mg/dL Creatinine (0.52-1.04) mg/dL Glucose (74-99) mg/dL POC Glucose (mg/dL) 109 H (75-99) mg/dL Hemoglobin A1c (4.0-6.0) % Calcium (8.4-10.2) mg/dL Total Creatine Kinase 26 L 23 L (30-135) U/L Troponin I 0.209 H* 0.155 H* (0.000-0.034) ng/mL 12/03/17 12/03/17 12/03/17 Range/Units 00:12 05:01 05:01 RDW 16.9 H (11.5-15.5) % Neutrophils # 9.6 H (1.3-7.7) k/uL Lymphocytes # 0.6 L (1.0-4.8) k/uL ABG pO2 (83-108) mmHg ABG Total CO2 (19-24) mmol/L ABG O2 Saturation (94-97) % Carbon Dioxide 21 L (22-30) mmol/L BUN 21 H (7-17) mg/dL Creatinine 1.12 H (0.52-1.04) mg/dL Glucose 150 H (74-99) mg/dL POC Glucose (mg/dL) 142 H (75-99) mg/dL Hemoglobin A1c (4.0-6.0) % Calcium (8.4-10.2) mg/dL Total Creatine Kinase (30-135) U/L Troponin I (0.000-0.034) ng/mL 12/03/17 12/03/17 Range/Units 06:00 06:30 RDW (11.5-15.5) % Neutrophils # (1.3-7.7) k/uL Lymphocytes # (1.0-4.8) k/uL ABG pO2 (83-108) mmHg ABG Total CO2 25 H (19-24) mmol/L ABG O2 Saturation 97.9 H (94-97) % Carbon Dioxide (22-30) mmol/L BUN (7-17) mg/dL Creatinine (0.52-1.04) mg/dL Glucose (74-99) mg/dL POC Glucose (mg/dL) 153 H (75-99) mg/dL Hemoglobin A1c (4.0-6.0) % Calcium (8.4-10.2) mg/dL Total Creatine Kinase (30-135) U/L Troponin I (0.000-0.034) ng/mL Microbiology - Last 24 Hours (Table) 12/02/17 07:45 Gram Stain - Preliminary Sputum Sputum Culture - Preliminary 12/02/17 09:24 Urine Culture - Preliminary Urine,Catheterized Assessment and Plan Assessment: 1. Acute on chronic hypoxic respiratory failure requiring mechanical ventilation. Secondary to an acute CHF and COPD exacerbation. Pulmonary service following closely they are adjusting vent settings and patient undergoing a sedation holiday and possibly later a weaning trial 2. Acute COPD exacerbation: Continue nebulizer treatments and IV Solu-Medrol 3. Acute diastolic congestive heart failure exacerbation: Continue IV Lasix. BNP 9340. Echo from 11/13/2017 shows an EF of 55-60% 4. Atrial fibrillation with rapid ventricular response: Cardiology is ordered IV amiodarone 5. Constipation with abdominal x-ray revealing stool in the colon. No results with soapsud enema 6. Possible underlying pneumonia, suspected mixed bacterial: With evidence of SIRS present on admission. Patient has been placed on cefepime and vancomycin 7. Hypothyroidism resume Synthroid 8. Recent hospitalization with febrile illness and gastroenteritis 9. History of trigeminal neuralgia 10. 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 Patient had nosebleed present on admission. ENT was consulted 11. History of coronary artery disease with cardiac stent 12. History of CVA 13. History of vascular dementia 14. Elevated troponins: Cardiology aware and monitoring 15. Hypomagnesemia and hypokalemia patient receiving supplement 16. Acute on chronic kidney disease, stage II. Slight rising creatinine up to 1.12 likely related to diuresis and. Continue to monitor. GI prophylaxis Protonix and DVT prophylaxis Xarelto I performed an examination of the patient and discussed their management with the physician Braille Coder. I have reviewed the Physician Braille Coder's notes and agree with the documented findings and plan of care
[2017-12-03 11:02] LABS: ABG HCO3 25 mmol/L (21-25); ABG Oxygen Saturation 95.4 % (94-97); ABG PCO2 33 mmHg (35-45); ABG PH 7.49 (7.35-7.45); ABG PO2 81 mmHg (83-108); ABG TCO2 26 mmol/L (19-24)
[2017-12-03 11:56] LABS: Glucose,Whole Blood 183 mg/dL (75-99)
[2017-12-03] MEDS ORDERED: INSULIN ASPART 100 UNIT/ML 1 ML 10 ML VIAL SQ SCH (12:00)
[2017-12-03] MEDS: POTASSIUM CHLORIDE 10 MEQ in WATER FOR INJECTION 1 100ML.BAG IVPB SCH ×2 (12:17→14:40)
[2017-12-03] MEDS: AMIODARONE 450 MG in DEXTROSE 5% IN WATER 250 ML IV SCH ×2 (14:30)
--- NOTE | 2017-12-03 14:36 | P.PN ---
Subjective Progress Note Date: 12/03/17 Principal diagnosis: Acute hypoxic respiratory failure This is a pleasant 67-year-old female patient with a past medical history significant for coronary artery disease and prior stenting, peripheral arterial disease and prior stenting as well, chronic obstructive pulmonary disease, as well as paroxysmal atrial fibrillation who just was discharged from the hospital yesterday was brought to the hospital again with shortness of breath and acute respiratory failure. The patient was in acute respiratory distress in the emergency room where she was intubated and was transferred to the intensive care unit. No indication in the chart that the patient didn't have any symptoms of chest pain or chest discomfort. The EKG showed atrial fibrillation with RVR. The chest x-ray showed findings consistent with CHF. The BNP came in to be severe lead elevated as well. The first set of troponin came in to be within normal limits at the second troponin came in to be slightly elevated. The patient was extubated earlier today. Beside that she is hemodynamically stable. She is in atrial fibrillation was controlled heart rate. She is on oral anticoagulation. The chest x-ray continues to show findings with CHF and we will continue the Lasix IV at 60 mg twice a day. The patient might be able to be transferred to [facility]. Objective - Vital Signs Vital signs: Vital Signs Temp 98.5 F 12/03/17 12:00 Pulse 84 12/03/17 14:00 Resp 19 12/03/17 14:00 BP 132/81 12/03/17 14:00 Pulse Ox 93 L 12/03/17 14:00 Intake & Output 12/02/17 12/03/17 12/03/17 18:59 06:59 18:59 Intake Total 072.111 2384.057 569 Output Total 880 1705 960 Balance 34.203 -633.943 -391 Weight 72.575 kg 72.575 kg Intake: IV 220 220 310 0.9ns 220 220 20 Cefepime 1 gm In Sodium 50 Chloride 0.9% 50 ml @ 100 mls/hr IVPB Q12HR [facility] Rx #:[id number] Magnesium Sulfate-D5w Pmx 100 1 gm In Dextrose/Water 1 100ml.bag @ 100 mls/hr IVPB Q1H [facility] Rx#: [id number] Sodium Chloride 0.9% 1, 140 000 ml @ 20 mls/hr IV . Q24H [facility] Rx#:[id number] Intake, IV Titration 674.203 227.057 100 Amount Amiodarone 450 mg In 208.907 111.654 Dextrose 5% in Water 250 ml @ 1 MG/MIN 34.53 mls/ hr IV .Q7H31M [facility] Rx#: [id number] Cefepime 1 gm In Sodium 50 50 Chloride 0.9% 50 ml @ 100 mls/hr IVPB Q12HR [facility] Rx #:[id number] Dextrose 5% in Water 100 100 ml @ 618 mls/hr IV .Q10M [facility] with Amiodarone 150 mg Rx#:[id number] Diltiazem 50 mg In Sodium 15.417 Chloride 0.9% 40 ml @ 5 MG/HR 5 mls/hr IV .Q10H [facility] Rx#:[id number] Norepinephrin 4 mg-0.9% 19.438 Ns Pmx 4 mg In 250 ml @ Titrate IV .Q0M [facility] Rx#: [id number] Propofol 1,000 mg In 49.879 Empty Bag 1 bag @ Titrate IV .Q0M [facility] Rx#: [id number] Propofol 1,000 mg In 45.965 100 Empty Bag 1 bag @ Titrate IV .Q0M [facility] Rx#: [id number] Vancomycin 1,250 mg In 250 Sodium Chloride 0.9% 250 ml @ 125 mls/hr IVPB Q16H [facility] Rx#:[id number] Tube Feeding 20 504 129 Other 120 30 Output: Urine 880 1705 960 Other: Voiding Method Indwelling Catheter Indwelling Catheter Indwelling Catheter # Bowel Movements 0 - Constitutional General appearance: Present: no acute distress - Respiratory Respiratory: bilateral: diminished - Cardiovascular Rhythm: irregularly irregular Heart sounds: normal: S1, S2 - Labs CBC & Chem 7: 12/03/17 05:01 12/03/17 11:15 Labs: Abnormal Lab Results - Last 24 Hours (Table) 12/02/17 12/02/17 12/03/17 Range/Units 09:42 21:49 00:12 RDW (11.5-15.5) % Neutrophils # (1.3-7.7) k/uL Lymphocytes # (1.0-4.8) k/uL ABG pH (7.35-7.45) ABG pCO2 (35-45) mmHg ABG pO2 (83-108) mmHg ABG Total CO2 (19-24) mmol/L ABG O2 Saturation (94-97) % Carbon Dioxide (22-30) mmol/L BUN (7-17) mg/dL Creatinine (0.52-1.04) mg/dL Glucose (74-99) mg/dL POC Glucose (mg/dL) 142 H (75-99) mg/dL Hemoglobin A1c 6.1 H (4.0-6.0) % Total Creatine Kinase 23 L (30-135) U/L Troponin I 0.155 H* (0.000-0.034) ng/mL 12/03/17 12/03/17 12/03/17 Range/Units 05:01 05:01 06:00 RDW 16.9 H (11.5-15.5) % Neutrophils # 9.6 H (1.3-7.7) k/uL Lymphocytes # 0.6 L (1.0-4.8) k/uL ABG pH (7.35-7.45) ABG pCO2 (35-45) mmHg ABG pO2 (83-108) mmHg ABG Total CO2 25 H (19-24) mmol/L ABG O2 Saturation 97.9 H (94-97) % Carbon Dioxide 21 L (22-30) mmol/L BUN 21 H (7-17) mg/dL Creatinine 1.12 H (0.52-1.04) mg/dL Glucose 150 H (74-99) mg/dL POC Glucose (mg/dL) (75-99) mg/dL Hemoglobin A1c (4.0-6.0) % Total Creatine Kinase (30-135) U/L Troponin I (0.000-0.034) ng/mL 12/03/17 12/03/17 12/03/17 Range/Units 06:30 10:59 11:53 RDW (11.5-15.5) % Neutrophils # (1.3-7.7) k/uL Lymphocytes # (1.0-4.8) k/uL ABG pH 7.49 H (7.35-7.45) ABG pCO2 33 L (35-45) mmHg ABG pO2 81 L (83-108) mmHg ABG Total CO2 26 H (19-24) mmol/L ABG O2 Saturation (94-97) % Carbon Dioxide (22-30) mmol/L BUN (7-17) mg/dL Creatinine (0.52-1.04) mg/dL Glucose (74-99) mg/dL POC Glucose (mg/dL) 153 H 183 H (75-99) mg/dL Hemoglobin A1c (4.0-6.0) % Total Creatine Kinase (30-135) U/L Troponin I (0.000-0.034) ng/mL Microbiology - Last 24 Hours (Table) 12/02/17 07:45 Gram Stain - Preliminary Sputum Sputum Culture - Preliminary Presumptive Staph aureus 12/02/17 09:42 Blood Culture - Preliminary Blood No Growth after 24 hours 12/02/17 09:24 Urine Culture - Preliminary Urine,Catheterized Assessment and Plan Assessment: Assessment #1 acute hypoxic respiratory failure #2 COPD exacerbation. #3 congestive heart failure exacerbation secondary to diastole dysfunction #4 atrial fibrillation with controlled heart rate #5 hypertension requiring vasopressors. Improved #6 known severe underlying coronary artery disease and prior revascularization #7 known severe peripheral arterial disease as well #8 known paroxysmal atrial fibrillation #9 multiple comorbid conditions Plan #1 continue the current medical treatment. #2 continue Lasix IV for additional 24 hours #3 the patient can be transferred to selective unit #4 follow-up with the patient. Thank you for allowing us participate in her care and we'll continue following up with the patient
[2017-12-03] MEDS: VANCOMYCIN 1,250 MG in SODIUM CHLORIDE 0.9% 250 ML IVPB SCH (16:03)
[2017-12-03 17:38] LABS: Glucose,Whole Blood 132 mg/dL (75-99)
[2017-12-03] MEDS: INSULIN ASPART 100 UNIT/ML 1 ML 10 ML VIAL SQ SCH ×2 (17:56→21:03)
[2017-12-03] MEDS: RIVAROXABAN 15 MG TAB PO SCH (17:57)
[2017-12-03] MEDS: AMIODARONE 200 MG TAB PO SCH (20:29)
[2017-12-03] MEDS: MORPHINE SULFATE 4MG/4ML SYRG IVP PRN (20:29)
[2017-12-03 20:44] LABS: Glucose,Whole Blood 145 mg/dL (75-99)
[2017-12-04 06:18] LABS: Glucose,Whole Blood 143 mg/dL (75-99)
[2017-12-04] MEDS: FUROSEMIDE 10 MG/ML 10 ML VIAL IV SCH (06:21)
[2017-12-04] MEDS: methylPREDNISolone SOD SUCCI 125 MG/2 ML VIAL IV SCH ×2 (06:23→12:22)
[2017-12-04] MEDS: LEVOTHYROXINE 100 MCG TAB PO SCH (06:25)
[2017-12-04] MEDS: INSULIN ASPART 100 UNIT/ML 1 ML 10 ML VIAL SQ SCH ×2 (06:33→12:22)
[2017-12-04 06:41] LABS: Anisocytosis Slight; Basophils % (A) 0 %; Eosinophils # (A) 0.2 k/uL (0-0.7); Eosinophils % (A) 1 %; HCT 36.9 % (34.0-46.0); HGB 11.2 gm/dL (11.4-16.0); Hypochromasia Moderate; Lymphocytes # (A) 0.7 k/uL (1.0-4.8); Lymphocytes % (A) 4 %; MCH 25.6 pg (25.0-35.0); MCHC 30.3 g/dL (31.0-37.0); MCV 84.6 fL (80.0-100.0); Mean Platelet Volume 7.6; Monocytes # (A) 0.3 k/uL (0-1.0); Monocytes % (A) 2 %; Neutrophils % (A) 92 %; Platelet Count 322 k/uL (150-450); RBC 4.37 m/uL (3.80-5.40); RDW 17.5 % (11.5-15.5); WBC 16.3 k/uL (3.8-10.6)
--- NOTE | 2017-12-04 06:55 | XR ---
EXAMINATION TYPE: XR chest 1V DATE OF EXAM: 12/04/2017 HISTORY: post intubation and COPD. REFERENCE: Previous study dated 12/03/2017. FINDINGS: The patient is ET tube and NG tube have been removed. A right basilic PICC line remains in place. Its tip is in the superior vena cava. The heart is enlarged. There is vascular congestion and mild pulmonary edema. I suspect a small left effusion. IMPRESSION: WORSENING CHANGES OF PULMONARY EDEMA.
[2017-12-04 06:56] LABS: Calcium 8.9 mg/dL (8.4-10.2); Magnesium 2.1 mg/dL (1.6-2.3); Phosphorus 3.5 mg/dL (2.5-4.5); Potassium 3.6 mmol/L (3.5-5.1)
[2017-12-04] MEDS ORDERED: VANCOMYCIN TROUGH DUE 1 EACH MISC MISCELLANE ONE (07:00)
[2017-12-04] MEDS ORDERED: VANCOMYCIN 1,000 MG in SODIUM CHLORIDE 0.9% 250 ML IVPB SCH (08:00)
[2017-12-04] MEDS: PANTOPRAZOLE 40 MG/10 ML VIAL IV SCH (08:34)
[2017-12-04] MEDS: MORPHINE SULFATE 4MG/4ML SYRG IVP PRN (08:34)
[2017-12-04] MEDS: ATORVASTATIN 20 MG TAB PO SCH (08:34)
[2017-12-04] MEDS: AMIODARONE 200 MG TAB PO SCH ×2 (08:34→21:23)
[2017-12-04] MEDS: CLOPIDOGREL 75 MG TAB PO SCH (08:34)
[2017-12-04] MEDS: BUDESONIDE 1 MG/2 ML NEBU INHALATION SCH (08:47)
[2017-12-04] MEDS: IPRATROPIUM-ALBUTEROL 3 ML NEB INHALATION SCH ×2 (08:47→12:01)
[2017-12-04] MEDS: CEFEPIME 1 GM in SODIUM CHLORIDE 0.9% 50 ML IVPB SCH (09:38)
[2017-12-04] MEDS: SODIUM CHLORIDE 0.9% 1,000 ML IV SCH (09:50)
[2017-12-04 12:09] LABS: Glucose,Whole Blood 140 mg/dL (75-99)
--- NOTE | 2017-12-04 12:24 | P.PN ---
Subjective Patient is doing well today. She was up in the chair when I saw her. She denies any shortness of breath. Objective - Vital Signs Vital signs: Vital Signs Temp 98.0 F 12/04/17 08:00 Pulse 122 H 12/04/17 11:35 Resp 18 12/04/17 11:35 BP 125/76 12/04/17 11:33 Pulse Ox 92 L 12/04/17 11:33 Intake & Output 12/03/17 12/04/17 12/04/17 18:59 06:59 18:59 Intake Total 829 40 240 Output Total 1050 850 Balance -221 -810 240 Weight 72.575 kg 74.3 kg Intake: IV 570 40 0.9ns 20 Cefepime 1 gm In Sodium 50 Chloride 0.9% 50 ml @ 100 mls/hr IVPB Q12HR [facility] Rx #:[id number] Magnesium Sulfate-D5w Pmx 100 1 gm In Dextrose/Water 1 100ml.bag @ 100 mls/hr IVPB Q1H [facility] Rx#: [id number] Potassium Chloride 10 meq 200 In Water For Injection 1 100ml.bag @ 100 mls/hr IVPB Q1H [facility] Rx#: [id number] Sodium Chloride 0.9% 1, 200 40 000 ml @ 20 mls/hr IV . Q24H [facility] Rx#:[id number] Intake, IV Titration 100 Amount Propofol 1,000 mg In 100 Empty Bag 1 bag @ Titrate IV .Q0M [facility] Rx#: [id number] Oral 240 Tube Feeding 129 Other 30 Output: Urine 1050 850 Other: Voiding Method Indwelling Catheter Bedside Commode # Voids 1 - Exam General: The patient is awake and alert, in no distress Eye: there is normal conjunctiva bilaterally. Neck: The neck is supple, there is no JVD. Cardiovascular: Normal S1-S2, no S3-S4, no murmurs. Respiratory: Lungs clear to auscultation bilaterally Gastrointestinal: Abdomen is soft, nontender Musculoskeletal: There is no pedal edema. Neurological:. Speech is normal. Skin: Skin is warm and dry - Labs CBC & Chem 7: 12/04/17 06:25 12/04/17 06:25 Labs: Abnormal Lab Results - Last 24 Hours (Table) 12/03/17 12/03/17 12/04/17 Range/Units 17:37 20:42 06:01 WBC (3.8-10.6) k/uL Hgb (11.4-16.0) gm/dL MCHC (31.0-37.0) g/dL RDW (11.5-15.5) % Neutrophils # (1.3-7.7) k/uL Lymphocytes # (1.0-4.8) k/uL BUN (7-17) mg/dL Creatinine (0.52-1.04) mg/dL Glucose (74-99) mg/dL POC Glucose (mg/dL) 132 H 145 H 143 H (75-99) mg/dL 12/04/17 12/04/17 12/04/17 Range/Units 06:25 06:25 12:02 WBC 16.3 H (3.8-10.6) k/uL Hgb 11.2 L (11.4-16.0) gm/dL MCHC 30.3 L (31.0-37.0) g/dL RDW 17.5 H (11.5-15.5) % Neutrophils # 15.0 H (1.3-7.7) k/uL Lymphocytes # 0.7 L (1.0-4.8) k/uL BUN 29 H (7-17) mg/dL Creatinine 1.10 H (0.52-1.04) mg/dL Glucose 134 H (74-99) mg/dL POC Glucose (mg/dL) 140 H (75-99) mg/dL Microbiology - Last 24 Hours (Table) 12/02/17 09:42 Blood Culture - Preliminary Blood No Growth after 48 hours 12/02/17 07:45 Gram Stain - Final Sputum Sputum Culture - Final Staphylococcus aureus 12/02/17 09:24 Urine Culture - Final Urine,Catheterized Assessment and Plan Assessment: 1. Acute on chronic hypoxic respiratory failure requiring mechanical ventilation. Patient extubated successfully on 12/04/19 2. Acute COPD exacerbation: Continue nebulizer treatments and steroids 3. Acute diastolic congestive heart failure exacerbation: Continue IV Lasix. BNP 9340. Echo from 11/13/2017 shows an EF of 55-60% 4. Atrial fibrillation with rapid ventricular response: Cardiology is ordered amiodarone 6. Possible underlying pneumonia, suspected mixed bacterial: With evidence of SIRS present on admission. Patient has been placed on cefepime and vancomycin 7. Hypothyroidism resume Synthroid 8. Recent hospitalization with febrile illness and gastroenteritis 9. History of trigeminal neuralgia 10. 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 Patient had nosebleed present on admission. ENT was consulted 11. History of coronary artery disease with cardiac stent 12. History of CVA 13. History of vascular dementia 14. Elevated troponins: Cardiology aware and monitoring 15. Hypomagnesemia and hypokalemia patient receiving supplement 16. Acute on chronic kidney disease, stage II. Slight rising creatinine up to 1.12 likely related to diuresis and. Continue to monitor. GI prophylaxis Protonix and DVT prophylaxis Xarelto - hange IV Solu-Medrol to oral prednisone 40 mg daily - Change IV Lasix to oral Lasix 40 mg twice daily -PT/OT evaluation
--- NOTE | 2017-12-04 14:13 | P.PN ---
Subjective Progress Note Date: 12/04/17 Principal diagnosis: Afib This is a pleasant 67-year-old female who follows regularly with Dr. Torres in the office. She had recently been discharged from the hospital and repeat presented with respiratory failure. She was initially in the intensive care unit, now being followed on the telemetry unit. She's up in the chair this morning at the time of my examination, continues to be in atrial fibrillation with an uncontrolled ventricular response. Breathing is overall stable. Blood pressure 124/70, heart rate this morning is in the 1 teens to 120 range. We'll put the patient back on her metoprolol, at a lower dose 50 mg by mouth twice a day today, she is also on amiodarone 400 mg one tablet by mouth twice a day. Diuretics have been changed over to oral. Objective - Vital Signs Vital signs: Vital Signs Temp 98.0 F 12/04/17 08:00 Pulse 122 H 12/04/17 11:35 Resp 18 12/04/17 11:35 BP 125/76 12/04/17 11:33 Pulse Ox 92 L 12/04/17 11:33 Intake & Output 12/03/17 12/04/17 12/04/17 18:59 06:59 18:59 Intake Total 829 40 240 Output Total 1050 850 Balance -221 -810 240 Weight 72.575 kg 74.3 kg Intake: IV 570 40 0.9ns 20 Cefepime 1 gm In Sodium 50 Chloride 0.9% 50 ml @ 100 mls/hr IVPB Q12HR [facility] Rx #:[id number] Magnesium Sulfate-D5w Pmx 100 1 gm In Dextrose/Water 1 100ml.bag @ 100 mls/hr IVPB Q1H [facility] Rx#: [id number] Potassium Chloride 10 meq 200 In Water For Injection 1 100ml.bag @ 100 mls/hr IVPB Q1H [facility] Rx#: [id number] Sodium Chloride 0.9% 1, 200 40 000 ml @ 20 mls/hr IV . Q24H [facility] Rx#:[id number] Intake, IV Titration 100 Amount Propofol 1,000 mg In 100 Empty Bag 1 bag @ Titrate IV .Q0M [facility] Rx#: [id number] Oral 240 Tube Feeding 129 Other 30 Output: Urine 1050 850 Other: Voiding Method Indwelling Catheter Bedside Commode # Voids 1 - Exam PHYSICAL EXAMINATION: HEENT: Head is atraumatic, normocephalic. Pupils equal, round. Neck is supple. There is no elevated jugular venous pressure. HEART EXAMINATION: Heart S1 and S2 irregularly irregular CHEST EXAMINATION:'s reveal fine expiratory wheezing ABDOMEN: Soft, nontender. Bowel sounds are heard. No organomegaly noted. EXTREMITIES: 2+ peripheral pulses with evidence of peripheral edema and no calf tenderness noted. NEUROLOGIC patient is awake, alert and oriented -3. . - Labs CBC & Chem 7: 12/04/17 06:25 12/04/17 06:25 Labs: Abnormal Lab Results - Last 24 Hours (Table) 12/03/17 12/03/17 12/04/17 Range/Units 17:37 20:42 06:01 WBC (3.8-10.6) k/uL Hgb (11.4-16.0) gm/dL MCHC (31.0-37.0) g/dL RDW (11.5-15.5) % Neutrophils # (1.3-7.7) k/uL Lymphocytes # (1.0-4.8) k/uL BUN (7-17) mg/dL Creatinine (0.52-1.04) mg/dL Glucose (74-99) mg/dL POC Glucose (mg/dL) 132 H 145 H 143 H (75-99) mg/dL 12/04/17 12/04/17 12/04/17 Range/Units 06:25 06:25 12:02 WBC 16.3 H (3.8-10.6) k/uL Hgb 11.2 L (11.4-16.0) gm/dL MCHC 30.3 L (31.0-37.0) g/dL RDW 17.5 H (11.5-15.5) % Neutrophils # 15.0 H (1.3-7.7) k/uL Lymphocytes # 0.7 L (1.0-4.8) k/uL BUN 29 H (7-17) mg/dL Creatinine 1.10 H (0.52-1.04) mg/dL Glucose 134 H (74-99) mg/dL POC Glucose (mg/dL) 140 H (75-99) mg/dL Microbiology - Last 24 Hours (Table) 12/02/17 09:42 Blood Culture - Preliminary Blood No Growth after 48 hours 12/02/17 07:45 Gram Stain - Final Sputum Sputum Culture - Final Staphylococcus aureus 12/02/17 09:24 Urine Culture - Final Urine,Catheterized Assessment and Plan Plan: Assessment #1 acute hypoxic respiratory failure #2 COPD exacerbation. #3 congestive heart failure exacerbation secondary to diastole dysfunction, acute on chronic #4 atrial fibrillation with uncontrolled heart rate #5 hypertension requiring vasopressors. Sepsis to be ruled out. #6 known severe underlying coronary artery disease and prior revascularization #7 known severe peripheral arterial disease as well #8 known paroxysmal atrial fibrillation #9 multiple comorbid conditions Plan We will resume the patient on metoprolol 50 mg one tablet by mouth twice a day. Continue amiodarone. Continue Xarelto. We will continue to follow the patient. DNP note has been reviewed, I agree with a documented findings and plan of care. Patient was seen and examined.
[2017-12-04] MEDS: FUROSEMIDE 40 MG TAB PO SCH (14:50)
[2017-12-04] MEDS: METOPROLOL TARTRATE 50 MG TAB PO SCH ×2 (14:51→21:23)
--- NOTE | 2017-12-04 14:59 | PN ---
PROGRESS NOTE DATE OF SERVICE: 12/04/2017. She is less short of breath. She is sitting up in a chair. She continues to have some tachycardia. PHYSICAL EXAMINATION: Respiratory rate is 18, pulse rate of 114, temperature 98, blood pressure 115/69, O2 saturation on 5 L by nasal cannula is 92%. HEENT: Unremarkable. Chest reveals decreased breath sounds in the bases. No wheeze. Cardiovascular system reveals an S1, S2. Abdomen is soft. There is no edema. White count of 16.3, hemoglobin of 11.2. Sodium 143, potassium 3.6, chloride 107, bicarb 27, BUN 29, creatinine of 1.1. IMPRESSION: At this time: 1. Atrial fibrillation with rapid ventricular response. 2. Possible aspiration-type pneumonia. 3. Congestive heart failure. 4. Chronic obstructive pulmonary disease with exacerbation. Continue the patient on amiodarone, Pulmicort, bronchodilators, antibiotics, and prednisone. Would have Dr. Schrader and Dr. Gonzalez further evaluate the patient to see if her antibiotic coverage can be narrowed as well as whether she is a candidate for rehab. Depending on how she does, we should make further changes to her care. MMODL / IJN: [id number] /
[2017-12-04] MEDS: ceFAZolin IN SWFI 2 GM/20 ML SYRINGE IVP SCH ×2 (17:23→23:23)
[2017-12-04] MEDS: RIVAROXABAN 15 MG TAB PO SCH (17:24)
[2017-12-04] MEDS: MORPHINE ORAL SOLN 10 MG/5 ML CUP PO PRN (18:23)
--- NOTE | 2017-12-04 18:59 | CONS ---
CONSULTATION DATE OF SERVICE: 12/04/2017. REASON FOR CONSULTATION: Positive sputum culture with Staph aureus. HISTORY OF PRESENT ILLNESS: The patient is a 67-year-old female with past medical history significant for COPD who was brought into the ER at [facility] on 12/02/2017 with chief complaints of increasing shortness of breath that kept getting worse since discharge from the hospital. The patient did initially decline breathing treatment in the ER with concern for possible worsening of her atrial fibrillation. Subsequently started having increasing shortness of breath with O2 sats down to the 70s. The patient did request supplemental oxygen and ultimately BiPAP. Followup x-ray shows positive central edema and infiltrate with worsening respiratory status. The patient was subsequently intubated and has been admitted to the ICU. The patient did require a PICC line placement for IV access. The patient did not have any fever on presentation and no fever since she has been in the hospital. Her white count was normal at 6.7, but was up to 16.3 today. The patient did have a blood culture, which is currently pending. She did have a sputum obtained at the time of intubation which was showing Staph aureus. Hence, Infectious Disease was consulted for further recommendation of antibiotic therapy. Patient currently being on cefepime and vancomycin. At the time of my evaluation this morning, the patient is afebrile. Her breathing seemed to be slightly better. She did have very minimal cough, not bringing up any sputum. The patient denies having any chest pain. The patient denies any abdominal pain. No nausea, vomiting. No choking on food and no diarrhea. REVIEW OF SYSTEMS: CONSTITUTIONALLY: Positive for weakness, but no high-grade fever. EYES: No complaint. ENT: No complaint. RESPIRATORY: As per HPI. CARDIOVASCULAR: No complaint. GENITOURINARY: No complaint. GASTROINTESTINAL: No complaint. MUSCULOSKELETAL: No complaint. INTEGUMENT: No complaint. PSYCHOLOGICAL: No complaint. ENDOCRINE: No complaint. NEUROLOGICAL: No complaint. PAST MEDICAL HISTORY: Atrial fibrillation, coronary artery disease, COPD, CVA, TIA, hypertension, hyperlipidemia, myocardial infarction, sleep apnea, hypothyroidism, urinary tract infection. PAST SURGICAL HISTORY: Adenoidectomy, bladder surgery, cholecystectomy, ear surgery, PTCA with stent, hysterectomy, tonsillectomy. SOCIAL HISTORY: Remote history of smoking. No drinking or drug use. FAMILY HISTORY: Mother with history of COPD. Mother from respiratory failure. Father: History of coronary disease and ND. ALLERGIES: To PENICILLIN, LATEX. MEDICATIONS: Include the patient is currently on: 1. Vancomycin. Pharmacy to dose. 2. She is on Xarelto. 3. Apparently is on Protonix. 4. Narcan. 5. Morphine sulfate. 6. Lopressor. 7. Ativan. 8. Synthroid. 9. Lasix. 10.Plavix. 11.Cefepime 1 g q.12h. 12.Pulmicort. 13.Lipitor. 14.Amiodarone. EXAMINATION: Blood pressure 114/70 with a pulse of 73, temperature 97.8. She is 96% on 6L nasal cannula. General description is an elderly female up in the chair in no distress. No tachypnea or accessory muscle of respiration use. HEENT is slight pallor. No scleral icterus. Oral mucous membranes moist. No pharyngeal erythema or thrush. NECK: Trachea central. No thyromegaly. LUNGS: Unlabored breathing, decreased breath sounds. No wheeze or crackle. HEART: S1, S2. Regular rate and rhythm. Abdomen was soft. No tenderness. No guarding or rigidity. No organomegaly. EXTREMITIES: No edema of the feet. SKIN: No rash or mass palpable. NEUROLOGIC: The patient is awake, alert, oriented x3. Mood and affect are normal. LABS: Hemoglobin is 11.2, white count is 16.3. Admission white count was normal with a BUN of 29, creatinine of 1.10. Electrolytes have been normal. Vancomycin trough of 21,000. X-ray done this morning show changes of pulmonary edema. DIAGNOSTIC IMPRESSION: 1. Patient with a positive sputum culture with Staphylococcus aureus, now has been finalized as methicillin-sensitive Staphylococcus aureus and the patient has been in the hospital with increasing shortness of breath, more likely secondary to her chronic obstructive pulmonary disease exacerbation with a question of possible pneumonia not entirely excluded. However, the patient did not have any fever or elevated white count on admission with slight jump in white count subsequently could be related to the steroids the patient has been on. 2. Patient noted to have a PENICILLIN ALLERGY that will limit number of antibiotics that can be safely used. PLAN: 1. We will discontinue the cefepime and vancomycin. 2. We will give a short course of cefazolin 2 g q.8h and hopefully transition to oral as the patient continues to improve. 3. We will follow her clinical condition and further adjust the medication if needed. Thank you for this consultation. Will follow this patient along with you. MARY / QUOC: [id number] /
[2017-12-04] MEDS: BUDESONIDE 0.5 MG/2 ML NEBU INHALATION SCH (19:54)
[2017-12-05] MEDS: MORPHINE ORAL SOLN 10 MG/5 ML CUP PO PRN ×3 (00:07→13:04)
--- NOTE | 2017-12-05 06:30 | XR ---
EXAMINATION TYPE: XR chest 1V DATE OF EXAM: 12/05/2017 HISTORY: post intubation and COPD. REFERENCE: Previous study dated 12/04/2017. FINDINGS: The heart remains enlarged. There is continued interstitial change. This is improved slight ly. Pleural spaces appear clear. IMPRESSION: SLIGHT IMPROVEMENT IN THE PATIENT'S PULMONARY EDEMA.
[2017-12-05] MEDS: PANTOPRAZOLE 40 MG TABLET PO SCH (06:40)
[2017-12-05] MEDS: LEVOTHYROXINE 100 MCG TAB PO SCH (06:40)
[2017-12-05 06:52] LABS: Anisocytosis Slight; Basophils % (A) 0 %; Eosinophils % (A) 0 %; HCT 38.4 % (34.0-46.0); HGB 11.6 gm/dL (11.4-16.0); Hypochromasia Moderate; Lymphocytes # (A) 0.9 k/uL (1.0-4.8); Lymphocytes % (A) 6 %; MCH 25.6 pg (25.0-35.0); MCHC 30.3 g/dL (31.0-37.0); MCV 84.3 fL (80.0-100.0); Mean Platelet Volume 7.2; Monocytes # (A) 0.5 k/uL (0-1.0); Monocytes % (A) 3 %; Neutrophils # (A) 14.1 k/uL (1.3-7.7); Neutrophils % (A) 90 %; Platelet Count 358 k/uL (150-450); RBC 4.55 m/uL (3.80-5.40); RDW 17.6 % (11.5-15.5); WBC 15.6 k/uL (3.8-10.6)
[2017-12-05 06:53] LABS: Calcium 9.1 mg/dL (8.4-10.2); Phosphorus 4.1 mg/dL (2.5-4.5); Potassium 3.7 mmol/L (3.5-5.1)
[2017-12-05] MEDS: BUDESONIDE 0.5 MG/2 ML NEBU INHALATION SCH ×3 (07:46→20:27)
[2017-12-05] MEDS: ceFAZolin IN SWFI 2 GM/20 ML SYRINGE IVP SCH ×3 (08:40→22:55)
[2017-12-05] MEDS: SODIUM CHLORIDE 0.9% 1,000 ML IV SCH (08:40)
[2017-12-05] MEDS: AMIODARONE 200 MG TAB PO SCH ×2 (08:41→21:02)
[2017-12-05] MEDS: predniSONE 20 MG TAB PO SCH (08:41)
[2017-12-05] MEDS: FUROSEMIDE 40 MG TAB PO SCH ×2 (08:41→15:12)
[2017-12-05] MEDS: ATORVASTATIN 20 MG TAB PO SCH (08:41)
[2017-12-05] MEDS: METOPROLOL TARTRATE 50 MG TAB PO SCH ×2 (08:41→21:02)
[2017-12-05] MEDS: CLOPIDOGREL 75 MG TAB PO SCH (08:41)
--- NOTE | 2017-12-05 10:42 | PN ---
PROGRESS NOTE DATE OF SERVICE: 12/05/2017. HISTORY: Ms. Mckeon is a 67-year-old female who presented with symptoms of worsening dyspnea. She has a history of atrial fibrillation. She is back in sinus mechanism at this time. Her breathing is better. She denies any symptoms of chest pain. She denies any dizziness. She had exacerbation of chronic obstructive pulmonary disease with diastolic dysfunction heart failure. She continues to be on amiodarone 400 mg twice a day, Lipitor 20 mg daily, Plavix 75 mg daily, metoprolol tartrate 50 mg twice a day, and Xarelto 15 mg daily. PHYSICAL EXAMINATION: Blood pressure 107/70 with a heart in 60s. Lungs with a few crackles. No wheezes. Heart rate rhythm S1, S2. No S3, no rub with systolic murmur. Abdomen is soft, nontender. Extremities trace to 1+ edema. LAB DATA: BUN and creatinine 33 and 1.1. Potassium 3.7, hemoglobin 11.6. IMPRESSION: 1. Paroxysmal atrial fibrillation, back in sinus mechanism. 2. Respiratory failure with aspiration type pneumonia. 3. Diastolic dysfunction heart failure. RECOMMENDATIONS: I will cut down the dose of the amiodarone to 200 mg twice a day. Continue the rest of her medical regimen. Increase her level activity. Follow her renal function. Depending on her progress, further recommendations will be made. MMODL / IJN: [id number] /
--- NOTE | 2017-12-05 13:20 | P.PN ---
Subjective Patient is doing well today. She is complaining of a lot of back pain. Objective - Vital Signs Vital signs: Vital Signs Temp 97.5 F L 12/05/17 08:00 Pulse 60 12/05/17 11:55 Resp 18 12/05/17 11:55 BP 109/73 12/05/17 11:15 Pulse Ox 98 12/05/17 11:15 Intake & Output 12/04/17 12/05/17 12/05/17 18:59 06:59 18:59 Intake Total 830 600 Balance 830 600 Weight 60.5 kg Intake: Oral 830 600 Other: Voiding Method Bedside Commode # Voids 3 0 1 # Bowel Movements 1 - Exam General: The patient is awake and alert, in no distress Eye: there is normal conjunctiva bilaterally. Neck: The neck is supple, there is no JVD. Cardiovascular: Normal S1-S2, no S3-S4, no murmurs. Respiratory: Lungs clear to auscultation bilaterally Gastrointestinal: Abdomen is soft, nontender Musculoskeletal: There is no pedal edema. Neurological:. Speech is normal. Skin: Skin is warm and dry - Labs CBC & Chem 7: 12/05/17 05:54 12/05/17 05:54 Labs: Abnormal Lab Results - Last 24 Hours (Table) 12/05/17 12/05/17 Range/Units 05:54 05:54 WBC 15.6 H (3.8-10.6) k/uL MCHC 30.3 L (31.0-37.0) g/dL RDW 17.6 H (11.5-15.5) % Neutrophils # 14.1 H (1.3-7.7) k/uL Lymphocytes # 0.9 L (1.0-4.8) k/uL BUN 33 H (7-17) mg/dL Creatinine 1.10 H (0.52-1.04) mg/dL Glucose 119 H (74-99) mg/dL Microbiology - Last 24 Hours (Table) 12/02/17 09:42 Blood Culture - Preliminary Blood No Growth after 72 hours 12/02/17 07:45 Gram Stain - Final Sputum Sputum Culture - Final Staphylococcus aureus Assessment and Plan Assessment: 1. Acute on chronic hypoxic respiratory failure requiring mechanical ventilation. Patient extubated successfully on 12/04/19 2. Acute COPD exacerbation: Continue nebulizer treatments and steroids 3. Acute diastolic congestive heart failure exacerbation: Continue IV Lasix. BNP 9340. Echo from 11/13/2017 shows an EF of 55-60% 4. Atrial fibrillation with rapid ventricular response: Cardiology is ordered amiodarone 6. Possible underlying pneumonia, suspected mixed bacterial: With evidence of SIRS present on admission. Patient has been placed on cefepime and vancomycin 7. Hypothyroidism resume Synthroid 8. Recent hospitalization with febrile illness and gastroenteritis 9. History of trigeminal neuralgia 10. 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 Patient had nosebleed present on admission. ENT was consulted 11. History of coronary artery disease with cardiac stent 12. History of CVA 13. History of vascular dementia 14. Elevated troponins: Cardiology aware and monitoring 15. Hypomagnesemia and hypokalemia patient receiving supplement 16. Acute on chronic kidney disease, stage II. Slight rising creatinine up to 1.12 likely related to diuresis and. Continue to monitor. GI prophylaxis Protonix and DVT prophylaxis Xarelto - hange IV Solu-Medrol to oral prednisone 40 mg daily - Change IV Lasix to oral Lasix 40 mg twice daily -PT/OT evaluation. Discharge planning.
[2017-12-05 13:27] LABS: ABG HCO3 14 mmol/L (21-25); ABG Oxygen Saturation 95.5 % (94-97); ABG PCO2 28 mmHg (35-45); ABG PH 7.31 (7.35-7.45); ABG PO2 89 mmHg (83-108); ABG TCO2 15 mmol/L (19-24)
[2017-12-05] MEDS ORDERED: LORazepam 2 MG/ML INJ ONE (13:41)
[2017-12-05] MEDS ORDERED: LORazepam 2 MG/ML INJ IV STA (13:41)
[2017-12-05] MEDS ORDERED: FUROSEMIDE 10 MG/ML 10 ML VIAL IV STA (13:41)
[2017-12-05] MEDS ORDERED: POTASSIUM CHLORIDE ER 20 MEQ TAB.ER PO SCH (14:00)
--- NOTE | 2017-12-05 14:12 | XR ---
EXAMINATION TYPE: XR chest 1V portable DATE OF EXAM: 12/05/2017 HISTORY: Resp distress. REFERENCE: Previous study dated 12/05/2017. FINDINGS: An electronic device projects over the left upper lung. The heart is enlarged. The lungs are clear. Pleural spaces are clear. IMPRESSION: CARDIOMEGALY.
[2017-12-05] MEDS: RIVAROXABAN 15 MG TAB PO SCH (17:04)
--- NOTE | 2017-12-05 20:44 | PN ---
PROGRESS NOTE DATE OF SERVICE: 12/05/2017. REASON FOR FOLLOWUP: Possible MSSA pneumonia or tracheobronchitis. INTERVAL HISTORY: The patient is afebrile. She did have some shortness of breath and did require a BiPAP, but denies having any chest pain. She did have some cough, not bringing up any sputum. No nausea, no vomiting. No abdominal pain or any diarrhea. EXAMINATION: Blood pressure 92/50 with a pulse of 66, temperature is 97.5. She is 97% on BiPAP. General description is an elderly female lying in bed in no distress. Respiratory system: Unlabored breathing with decreased intensive breath sounds. No wheeze. Heart S1, S2. Regular rate and rhythm. Abdomen soft. No tenderness. EXTREMITIES: No edema of feet. LABS: Hemoglobin 11.6, white count 15.6, BUN of 33, creatinine 1.10. Blood cultures have been negative. DIAGNOSTIC IMPRESSION AND PLAN: Patient admitted to the hospital with difficulty breathing, which is likely multifactorial, possibility of a chronic obstructive pulmonary disease exacerbation/tracheobronchitis and question of early pneumonia. Chest x-ray this morning shows only cardiomegaly and no acute infiltrate. The patient is currently on cefazolin and will transition to a short course of Keflex on discharge. Continue supportive care. MMODL / IJN: [id number] /
[2017-12-05] MEDS ORDERED: SODIUM CHLORIDE 0.9% 250 ML IV ONE (20:56)
[2017-12-05 21:02] LABS: Glucose,Whole Blood 140 mg/dL (75-99)
--- NOTE | 2017-12-05 21:45 | CONS ---
CONSULTATION A team had been called because of an episode of cyanosis associated with increased respiratory distress. The patient was placed on BiPAP and given a dose of Lasix and has started to improve. On physical examination her blood pressure is 92/50, respiratory rate of 16, pulse rate of 57. She is on BiPAP 40% FiO2 and her O2 saturation is in the 90s. She seems fairly comfortable. HEENT reveals BiPAP mask in place. Chest reveals decreased breath sounds at bases. No wheeze. Cardiovascular system is S1, S2. Abdomen is soft. There is trace pedal edema. ABG showed a pH of 7.31, pCO2 of 28, PO2 of 89, bicarb of 14, FiO2 44%. On her electrolytes, her bicarb is 29. IMPRESSION: At this time is: 1. Acute respiratory failure due to asthma with chronic obstructive pulmonary disease exacerbation and congestive heart failure. 2. Atrial fibrillation with rapid ventricular response. 3. Medical debility. 4. Metabolic encephalopathy. At this point in time from a pulmonary standpoint, attempt to keep a negative fluid balance. Continue her on bronchodilators, prednisone, Xarelto, continue her on BiPAP until she is slightly negative fluid balance. We will follow closely during her hospital stay and appreciate the opportunity to participate in the care. MMODL / IJN: [id number] /
[2017-12-06 06:03] LABS: Anisocytosis Slight; Basophils % (A) 0 %; Eosinophils # (A) 0.1 k/uL (0-0.7); Eosinophils % (A) 1 %; HCT 38.4 % (34.0-46.0); HGB 11.7 gm/dL (11.4-16.0); Hypochromasia Moderate; Lymphocytes # (A) 1.2 k/uL (1.0-4.8); Lymphocytes % (A) 9 %; MCH 25.3 pg (25.0-35.0); MCHC 30.4 g/dL (31.0-37.0); MCV 83.2 fL (80.0-100.0); Mean Platelet Volume 7.3; Monocytes # (A) 0.7 k/uL (0-1.0); Monocytes % (A) 5 %; Neutrophils # (A) 10.6 k/uL (1.3-7.7); Neutrophils % (A) 83 %; Platelet Count 366 k/uL (150-450); RBC 4.61 m/uL (3.80-5.40); RDW 17.4 % (11.5-15.5); WBC 12.8 k/uL (3.8-10.6)
[2017-12-06 06:18] LABS: Calcium 8.7 mg/dL (8.4-10.2); Magnesium 2.1 mg/dL (1.6-2.3); Phosphorus 3.4 mg/dL (2.5-4.5); Potassium 3.9 mmol/L (3.5-5.1)
--- NOTE | 2017-12-06 06:21 | P.CONS ---
History of Present Illness - Chief Complaint Medical debility - History of Present Illness I had the op to see patient for inpatient rehab consultation with regard to medical debility. She was admitted to [facility] December 02 with shortness of breath, mental status change. Seen by Dr. Orellana for acute on chronic hypoxic respiratory failure. Seen by Dr. Bernal for atrial fibrillation with uncontrolled heart rate. Chest x-rays followed. Initial chest x-ray demonstrated fibrosis and edema. Follow-up chest x-ray, most recent, demonstrates only cardiomegaly. PT reports supervision for bed mobility and minimal assistance for transfers. Worked on bedside exercise. OT prescribed. Previous functional history as elicited from patient: 67-year-old left-handed white female who is and lives in a first-floor 2 floor home, with daughter. Retired. Daughter does cooking, laundry, driving. Patient receives assistance for bath. Describes independent with dressing and gait with standard cane. Family history both parents of [place]. Review of Systems Review of systems: ENT: Denies sneezes or discharge. Eyes: Denies discharge or photophobia. Cardiac: Denies chest pain or palpitation. Pulmonary: Mild to moderate shortness of breath. Breast: Denies discharge or lumps. Gastrointestinal: Denies nausea, emesis, constipation, diarrhea. Genitourinary: Denies discharge or frequency. Musculoskeletal: Denies muscle or bone aches. Neurologic: Generalized weakness. Endocrine: Denies shakes or sweats. Oncology: Denies cancers. Dermatologic: Denies rash, itching, pruritus. ALLERGY/immunology: Denies sneezes, rashes. Past Medical History Past Medical History: Atrial Fibrillation, Asthma, Coronary Artery Disease (CAD) , Cancer, COPD, CVA/TIA, Eye Disorder, GERD/Reflux, Hyperlipidemia, Hypertension , Memory Impairment, Myocardial Infarction ([place]), Osteoarthritis (OA), Respiratory Disorder, Sleep Apnea/CPAP/BIPAP, Thyroid Disorder, Vascular Disorder Additional Past Medical History / Comment(s): Pt recently admitted to [facility] on 11/25/17 febrile, recent UTI, hypotensive. 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 Last Myocardial Infarction Date:: 11/03/14 History of Any Multi-Drug Resistant Organisms: None Reported Year Discovered:: None Past Surgical History: Adenoidectomy, Bladder Surgery, Cholecystectomy, Ear Surgery, Heart Catheterization With Stent, Hysterectomy, Orthopedic Surgery, Tonsillectomy Additional Past Surgical History / Comment(s): 11/28/14 PTCA with stents, left CAROTID ENDARTERECTOMY, MULTIPLE BILATERAL STENTS IN LOWER EXTREMITIES, R elbow surgery as a child, R ear surgery for blockage, bilateral ankle arthroscopies, bilateral knee arthroscopies, deviated septal surgery, L great toe pinned, colonoscopies/benign polypectomy, R nephrectomy and partial bladder removal, skin lesion from nose. Past Anesthesia/Blood Transfusion Reactions: Motion Sickness Date of Last Stent Placement:: 10/2014 Smoking Status: Former smoker - Past Family History Mother Family Medical History: COPD Additional Family Medical History / Comment(s): Mother is . She from respiratory failure. Father Family Medical History: Coronary Artery Disease (CAD), Myocardial Infarction ([place] ) Additional Family Medical History / Comment(s): Father had gout Medications and Allergies Home Medications Medication Instructions Recorded Confirmed Type PARoxetine HCL 30 mg PO HS 07/02/14 12/02/17 History OXcarbazepine [Trileptal] 150 mg PO HS 11/04/14 12/02/17 History Melatonin 3 mg PO HS 03/05/16 12/02/17 History Atorvastatin Calcium [Lipitor] 20 mg PO DAILY 06/13/17 12/02/17 History Calcium Polycarbophil [Fibercon] 1,250 mg PO DAILY 06/13/17 12/02/17 History Clopidogrel Bisulfate [Plavix] 75 mg PO DAILY 06/13/17 12/02/17 History Ferrous Sulfate [Iron (65 MG 325 mg PO DAILY 06/13/17 12/02/17 History Elemental)] Furosemide [Lasix] 40 mg PO DAILY 06/13/17 12/02/17 History Levothyroxine Sodium [Synthroid] 100 mcg PO DAILY 06/13/17 12/02/17 History Lurasidone HCl [Latuda] 20 mg PO DAILY 06/13/17 12/02/17 History Magnesium Oxide [Mag-Ox] 400 mg PO DAILY 06/13/17 12/02/17 History Montelukast [Singulair] 10 mg PO HS 06/13/17 12/02/17 History Pantoprazole Sodium [Protonix] 40 mg PO DAILY 06/13/17 12/02/17 History Potassium Chloride [Klor-Con 10] 10 meq PO DAILY 06/13/17 12/02/17 History Fluticasone/Vilanterol [Breo 1 puff INHALATION RT-DAILY 06/14/17 12/02/17 History Ellipta 100-25 Mcg Inhaler] Tiotropium Munith [Spiriva] 1 cap INHALATION RT-DAILY 06/14/17 12/02/17 History Rivaroxaban [Xarelto] 15 mg PO W/SUPPER #30 tab 06/16/17 12/02/17 Rx Multivitamins, Thera [Multivitamin 1 each PO DAILY@1200 #30 tab 11/15/17 Rx (formulary)] Albuterol Nebulized [Ventolin 2.5 mg INHALATION RT-QID nebu 12/01/17 12/02/17 Rx Nebulized] Docusate [Colace] 100 mg PO BID cap 12/01/17 12/02/17 Rx Metoprolol Tartrate [Lopressor] 50 mg PO TID tab 12/01/17 12/02/17 Rx Nitroglycerin Sl Tabs [Nitrostat] 0.4 mg SUBLINGUAL Q5M PRN tab 12/01/17 Rx Polyethylene Glycol 3350 [Miralax] 17 gm PO HS powd.pack 12/01/17 12/02/17 Rx Allergies Allergy/AdvReac Type Severity Reaction Status Date / Time albuterol Allergy Rash/Hives Verified 12/05/17 13:18 latex Allergy Rash/Hives Verified 11/24/17 20:05 Penicillins Allergy Unknown Verified 11/24/17 20:05 Childhood Physical Exam Vitals: Vital Signs Temp Pulse Pulse Resp BP Pulse Ox 12/06/17 03:58 96.4 F L 58 L 13 132/81 95 12/05/17 23:12 96.4 F L 65 17 116/72 93 L 12/05/17 21:44 94 L 12/05/17 20:28 70 12/05/17 19:40 96.8 F L 54 L 15 112/74 95 12/05/17 19:30 91/55 12/05/17 15:48 57 L 16 12/05/17 15:47 57 L 16 92/50 97 12/05/17 13:41 66 12/05/17 13:32 68 12/05/17 11:55 60 18 12/05/17 11:15 60 18 109/73 98 12/05/17 08:00 97.5 F L 67 18 97/55 92 L Intake and Output 12/05/17 12/05/17 12/06/17 14:59 22:59 06:59 Intake Total 600 740 160 Balance 600 740 160 Intake: IV 590 160 Sodium Chloride 0.9% 1, 340 160 000 ml @ 20 mls/hr IV . Q24H AAKASH Rx#:[id number] Sodium Chloride 0.9% 250 250 ml @ 999 mls/hr IV .Q16M ONE Rx#:[id number] Oral 600 150 Other: Voiding Method Bedside Commode Bedside Commode # Voids 1 1 2 Weight 67 kg Skin: Good color, texture, turgor. General: Medium build and comfortable appearance. Wearing CPAP. Head: Normocephalic, atraumatic. Eyes: Symmetric. Pupils equal round. Ears: Symmetric. Hearing within normal limits. Mouth: Clear. Neck: Supple. Carotid without bruit. Cardiac: Regular rate and rhythm. Lungs: Clear anteriorly and posteriorly. Abdomen: Soft active nontender. Extremities: Normal tone. Neurological: Mental status: Alert, cooperative, pleasant. Cranial nerves: Symmetric facial tone and trapezius. Motor: Able to elevate all limbs off of bed and demonstrates active movement distally. Sensation: Intact throughout. DTRs: Symmetric and equal throughout. Mobility: Would require assistance for bed mobility. Results CBC & Chem 7: 12/05/17 05:54 12/05/17 05:54 Labs: Abnormal Lab Results - Last 24 Hours (Table) 12/05/17 12/05/17 12/05/17 Range/Units 05:54 05:54 13:22 WBC 15.6 H (3.8-10.6) k/uL MCHC 30.3 L (31.0-37.0) g/dL RDW 17.6 H (11.5-15.5) % Neutrophils # 14.1 H (1.3-7.7) k/uL Lymphocytes # 0.9 L (1.0-4.8) k/uL ABG pH 7.31 L (7.35-7.45) ABG pCO2 28 L (35-45) mmHg ABG HCO3 14 L (21-25) mmol/L ABG Total CO2 15 L (19-24) mmol/L BUN 33 H (7-17) mg/dL Creatinine 1.10 H (0.52-1.04) mg/dL Glucose 119 H (74-99) mg/dL POC Glucose (mg/dL) (75-99) mg/dL Plasma Lactic Acid Joshua (0.7-2.0) mmol/L 12/05/17 12/05/17 12/05/17 Range/Units 19:45 21:01 23:58 WBC (3.8-10.6) k/uL MCHC (31.0-37.0) g/dL RDW (11.5-15.5) % Neutrophils # (1.3-7.7) k/uL Lymphocytes # (1.0-4.8) k/uL ABG pH (7.35-7.45) ABG pCO2 (35-45) mmHg ABG HCO3 (21-25) mmol/L ABG Total CO2 (19-24) mmol/L BUN (7-17) mg/dL Creatinine (0.52-1.04) mg/dL Glucose (74-99) mg/dL POC Glucose (mg/dL) 140 H (75-99) mg/dL Plasma Lactic Acid Joshua 2.8 H* 3.0 H* (0.7-2.0) mmol/L Microbiology - Last 24 Hours (Table) 12/02/17 09:42 Blood Culture - Preliminary Blood No Growth after 72 hours Chest x-ray: report reviewed (Chest x-rays followed. Most recent demonstrates only cardiomegaly.) Assessment and Plan (1) Acute respiratory failure Current Visit: Yes Status: Acute Code(s): J96.00 - ACUTE RESPIRATORY FAILURE , UNSP W HYPOXIA OR HYPERCAPNIA SNOMED Code(s): 27269769 Plan: Impression: 1. Medical debility. 2. Acute on chronic respiratory failure, hypoxic. 3. Active fibrillation with uncontrolled heart rate. 4. Congestive heart failure. 5. Coronary disease with history of [place].. 6. Hypertension. 7. Dyslipidemia. 8. Sleep apnea. 9. COPD. 10. History of cancer. 11. Memory impairment. 12. Osteoarthritis. Comments and plan: At this time PT ongoing and OT prescribed. Follow therapies with yourself. Endurance currently a question.
[2017-12-06] MEDS: LEVOTHYROXINE 100 MCG TAB PO SCH (07:24)
[2017-12-06] MEDS: PANTOPRAZOLE 40 MG TABLET PO SCH (07:24)
[2017-12-06] MEDS: AMIODARONE 200 MG TAB PO SCH ×2 (08:09→19:52)
[2017-12-06] MEDS: FUROSEMIDE 40 MG TAB PO SCH (08:10)
[2017-12-06] MEDS: CLOPIDOGREL 75 MG TAB PO SCH (08:10)
[2017-12-06] MEDS: predniSONE 20 MG TAB PO SCH (08:10)
[2017-12-06] MEDS: METOPROLOL TARTRATE 50 MG TAB PO SCH ×2 (08:10→19:52)
[2017-12-06] MEDS: ATORVASTATIN 20 MG TAB PO SCH (08:10)
[2017-12-06] MEDS: ceFAZolin IN SWFI 2 GM/20 ML SYRINGE IVP SCH ×2 (08:14→16:59)
--- NOTE | 2017-12-06 08:55 | XR ---
EXAMINATION TYPE: XR chest 1V DATE OF EXAM: 12/06/2017 COMPARISON: 12/05/2017 HISTORY: 67-year-old female postintubation and COPD TECHNIQUE: Single frontal view of the chest is obtained. 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 Right PICC tip at the upper SVC. Heart borderline to mildly enlarged. Atherosclerotic arch calcifications. Diffuse interstitial densit ies. Improving aeration right upper lobe. No significant pleural effusion seen on the frontal view. IMPRESSION: 1. Stable borderline to mild cardiomegaly. 2. Mild interstitial densities could reflect mild CHF or bronchitis/asthma.
[2017-12-06] MEDS: BUDESONIDE 0.5 MG/2 ML NEBU INHALATION SCH ×2 (08:56→21:36)
--- NOTE | 2017-12-06 10:14 | P.PN ---
<Samantha Xiao E - Last Filed: 12/06/17 10:03> Subjective Progress Note Date: 12/06/17 HPI: This is a 67-year-old female patient who is well-known to our services being seen examined and evaluated today on rounds. This patient recently was admitted to the hospital for 2017 to 12/01/2017 for atrial fibrillation, gastroenteritis, and acute COPD exacerbation. She returned to the emergency room on 12/02/2017 with complaints of dyspnea associated with her COPD. The patient initially declined any breathing treatments at that time related to concern of exacerbating her atrial fibrillation. It was noted that the patient also had a bloody nose at night and the patient was on Plavix since oral toe. She also complained of some mild diffuse abdominal discomfort and is known to have chronic IBS and constipation. While in the emergency room the initial chest x-ray shows no changes from her previous admission. Her abdominal x-ray did show some marked stool. Also while in the emergency room the patient was noted to have a rapid decline in her respiratory status. Her oxygen saturations were in the 70s and she required an increase in her oxygen demands and ultimately on BiPAP. A new chest x-ray was obtained a few hours later which did show new bilateral central edema and infiltrates. The patient's worsening respiratory status continued she was ultimately intubated in the emergency room and admitted to the intensive care unit with atrial fibrillation , CHF, acute hypoxic respiratory failure. Currently the patient is being examined and the intensive care unit and is on mechanical ventilation with assist control mode respiratory rate of 16, tidal volume 400, FiO2 80% and a PEEP of 5. She is synchronous with the vent. She is on propofol at this time. Also leaves fed has also been started due to hypotension currently she is on 12 mild aches and is responding well. Stat lab draws were obtained of her lactic acid and it came back at 1.7, the patient's white count is normal at 6.7 , hemoglobin is 11.6, sodium 139, potassium 4.2, chloride 99, CO2 28, BUN 14, creatinine 1, magnesium 1.9. Patient's ABGs were obtained this morning and did show a pH of 7.19 pCO2 43 pO2 122 and a bicarb of 16. We will obtain a stat uncrater all of this ABG. Fluids have been switched to KVO, blood urine and sputum cultures are also sent. Patient continues to be tachycardic cardiology is on consult and have been adjusting cardiac medications in that regard. A PICC line is requested from interventional radiology and we are currently awaiting on responsive whether that can happen at this time or not. If the IR Doctor is unable to insert a PICC line then the patient will require a central line placement. We will obtain consent for these procedures with the patient's daughter. 12/03/17- patient is being seen examined evaluated today on rounds in the intensive care unit. The patient was noted to have an increase in her troponin levels overnight. Cardiology is aware. The patient continues on an amiodarone drip at this time and her rate is better controlled. We will fed has been off since midnight last night. She continues to diuresis and is having good output with the Lasix. Her chest x-ray is reviewed and has remain unchanged she currently continues on mechanical ventilation with propofol for sedation. Current ventilator settings are assist control mode with respiratory rate of 16 , tidal volume of 400, FiO2 50% and a PEEP of 5. She is synchronous with the vent. Her labs are reviewed. Her potassium and magnesium are both being replaced today. ABGs reviewed and are within normal limits. A sedation holiday is currently being performed. The patient's ventilator settings are being adjusted to FiO2 of 40% and a PEEP of 5. We will continue to monitor to see if she tolerates these ventilator changes and if so will do a CPAP trial with weaning parameters with pressure support of 5/5. Patient did have a soapsuds enema yesterday without results. Bowel sounds remain hypoactive, patient is passing flatus. She is on tube feeds and is tolerating that well well and is at goal. Of note patient also underwent a PICC line insertion yesterday. 12/04/17-12/05/17- Please see Dr. TIANNA Hyman progress notes 12/06/17- patient is being seen examined and evaluated today on rounds. The patient did have an episode of cyanosis associated with increased respiratory distress and was placed on BiPAP and given a dose of Lasix and improved with that treatment. Chest x-ray was reviewed and does show stable borderline to mild cardiomegaly, mild interstitial densities could reflect mild CHF or bronchitis/asthma. Upon examination she is resting up in bed on 4-5 L of supplemental oxygen. She did utilize the BiPAP overnight. She does state that she does get some shortness of breath with exertion and activity and has a very low tolerance for activity. She is being evaluated currently for inpatient rehab. She currently is on oral prednisone, Lasix bronchodilators and inhaled steroids. I'll labs and reports have been reviewed. Afebrile no further complaints. Objective - Vital Signs Vital signs: Vital Signs Temp 96.4 F L 12/06/17 03:58 Pulse 84 12/06/17 09:08 Resp 16 12/06/17 08:00 BP 141/81 12/06/17 08:00 Pulse Ox 100 12/06/17 08:00 Intake & Output 12/05/17 12/06/17 12/06/17 18:59 06:59 18:59 Intake Total 950 550 240 Balance 950 550 240 Weight 67 kg Intake: IV 200 550 Sodium Chloride 0.9% 1, 200 300 000 ml @ 20 mls/hr IV . Q24H [facility] Rx#:[id number] Sodium Chloride 0.9% 250 250 ml @ 999 mls/hr IV .Q16M [facility] Rx#:[id number] Oral 750 240 Other: Voiding Method Bedside Commode # Voids 1 2 - Exam GENERAL EXAM: Alert, no acute distress HEAD: Normocephalic. EYES: Normal reaction of pupils, equal size. NOSE: Clear with pink turbinates. THROAT: No erythema or exudates. NECK: No masses, no JVD. CHEST: No chest wall deformity. LUNGS: Diminished bilaterally, no wheezes. Respirations even and unlabored. CVS: S1 and S2 normal with no audible mumurs, regular rhythm, tachycardic. ABDOMEN: No hepatosplenomegaly, normal bowel sounds, no guarding or rigidity. EXTREMITIES: Trace edema noted, pedal pulses palpable. CENTRAL NERVOUS SYSTEM: No focal deficits, moves all 4 extremities. - Labs CBC & Chem 7: 12/06/17 05:41 12/06/17 05:41 Labs: Abnormal Lab Results - Last 24 Hours (Table) 12/05/17 12/05/17 12/05/17 Range/Units 13:22 19:45 21:01 WBC (3.8-10.6) k/uL MCHC (31.0-37.0) g/dL RDW (11.5-15.5) % Neutrophils # (1.3-7.7) k/uL ABG pH 7.31 L (7.35-7.45) ABG pCO2 28 L (35-45) mmHg ABG HCO3 14 L (21-25) mmol/L ABG Total CO2 15 L (19-24) mmol/L BUN (7-17) mg/dL Creatinine (0.52-1.04) mg/dL Glucose (74-99) mg/dL POC Glucose (mg/dL) 140 H (75-99) mg/dL Plasma Lactic Acid Joshua 2.8 H* (0.7-2.0) mmol/L 12/05/17 12/06/17 12/06/17 Range/Units 23:58 05:41 05:41 WBC 12.8 H (3.8-10.6) k/uL MCHC 30.4 L (31.0-37.0) g/dL RDW 17.4 H (11.5-15.5) % Neutrophils # 10.6 H (1.3-7.7) k/uL ABG pH (7.35-7.45) ABG pCO2 (35-45) mmHg ABG HCO3 (21-25) mmol/L ABG Total CO2 (19-24) mmol/L BUN 42 H (7-17) mg/dL Creatinine 1.30 H (0.52-1.04) mg/dL Glucose 103 H (74-99) mg/dL POC Glucose (mg/dL) (75-99) mg/dL Plasma Lactic Acid Joshua 3.0 H* (0.7-2.0) mmol/L Microbiology - Last 24 Hours (Table) 12/02/17 09:42 Blood Culture - Preliminary Blood No Growth after 72 hours Assessment and Plan Assessment: Assessment SIRS 2/4 Acute on chronic hypoxic respiratory distress Atrial fibrillation and tachycardia Acute exacerbation of COPD Acute exacerbation of CHF Abdominal discomfort with marked stool noted on abdominal x-ray Hypotension Possible underlying pneumonia, suspect mixed bacterial, sputum cultures revealed staph Plan Medications have been reviewed and will be continued as ordered. Continue to maintain the patient in a negative fluid balance. Sputum cultures were positive for staphylococcal aureus and she is on appropriate antibiotics that are susceptible Continue with nebulizer treatments and steroids. Continue with pulmonary hygiene, coughing and deep breathing exercises, and supportive care. Supplemental oxygen to maintain oxygen saturations of 92% or better, may utilize BiPAP at night and when necessary. Initiate and encourage incentive spirometer GI and DVT prophylaxis. Patient is currently being evaluated by physical medicine and may benefit from some inpatient therapies if appropriate. We will continue to monitor labs/results and adjust treatment as necessary. Further recommendations pending. I performed an examination of the patient and discussed their management with the nurse practitioner. I have reviewed the nurse practitioner's note and agree with the documented findings and plan of care. <Florinda Hutchinson - Last Filed: 12/06/17 12:55> Objective - Vital Signs Vital signs: Vital Signs Temp 96.4 F L 12/06/17 03:58 Pulse 58 L 12/06/17 12:00 Resp 16 12/06/17 12:00 BP 85/50 12/06/17 12:00 Pulse Ox 95 12/06/17 12:00 Intake & Output 12/05/17 12/06/17 12/06/17 18:59 06:59 18:59 Intake Total 950 550 240 Balance 950 550 240 Weight 67 kg 67 kg Intake: IV 200 550 Sodium Chloride 0.9% 1, 200 300 000 ml @ 20 mls/hr IV . Q24H [facility] Rx#:[id number] Sodium Chloride 0.9% 250 250 ml @ 999 mls/hr IV .Q16M [facility] Rx#:[id number] Oral 750 240 Other: Voiding Method Bedside Commode Bedside Commode # Voids 1 2 - Labs CBC & Chem 7: 12/06/17 05:41 12/06/17 05:41 Labs: Abnormal Lab Results - Last 24 Hours (Table) 12/05/17 12/05/17 12/05/17 Range/Units 13:22 19:45 21:01 WBC (3.8-10.6) k/uL MCHC (31.0-37.0) g/dL RDW (11.5-15.5) % Neutrophils # (1.3-7.7) k/uL ABG pH 7.31 L (7.35-7.45) ABG pCO2 28 L (35-45) mmHg ABG HCO3 14 L (21-25) mmol/L ABG Total CO2 15 L (19-24) mmol/L BUN (7-17) mg/dL Creatinine (0.52-1.04) mg/dL Glucose (74-99) mg/dL POC Glucose (mg/dL) 140 H (75-99) mg/dL Plasma Lactic Acid Joshua 2.8 H* (0.7-2.0) mmol/L 12/05/17 12/06/17 12/06/17 Range/Units 23:58 05:41 05:41 WBC 12.8 H (3.8-10.6) k/uL MCHC 30.4 L (31.0-37.0) g/dL RDW 17.4 H (11.5-15.5) % Neutrophils # 10.6 H (1.3-7.7) k/uL ABG pH (7.35-7.45) ABG pCO2 (35-45) mmHg ABG HCO3 (21-25) mmol/L ABG Total CO2 (19-24) mmol/L BUN 42 H (7-17) mg/dL Creatinine 1.30 H (0.52-1.04) mg/dL Glucose 103 H (74-99) mg/dL POC Glucose (mg/dL) (75-99) mg/dL Plasma Lactic Acid Joshua 3.0 H* (0.7-2.0) mmol/L Microbiology - Last 24 Hours (Table) 12/02/17 09:42 Blood Culture - Preliminary Blood No Growth after 96 hours Assessment and Plan Assessment: Patient seen and examined. She is getting up to go to the bathroom. Continue PT and OT. Bipap nightly and PRN. Agree with decreasing diuresis. CXR is markedly improved. Continue ABX. Awaiting rehab assessment. ~Florinda Hutchinson DO
--- NOTE | 2017-12-06 11:04 | PN ---
PROGRESS NOTE Mrs. Mckeon is a 67-year-old female who presented with respiratory failure, had paroxysmal atrial fibrillation and she is back in sinus mechanism and staying in sinus mechanism. She has history of chronic obstructive lung disease and symptoms of diastolic dysfunction heart failure. She is feeling better today. Her breathing is stable. She is denying any dizziness. No palpitation. No syncope. She continues to be on amiodarone 200 mg twice a day, Lipitor 20 mg daily, Plavix 75 mg daily, Lasix 40 mg twice a day; she received a dose of IV Lasix yesterday; metoprolol 50 mg twice a day, and Xarelto 15 mg daily in addition to prednisone. PHYSICAL EXAMINATION: Blood pressure 132/80 with the heart rate in the 60s. LUNGS: With decreased air exchange. No wheezes. HEART: Regular rate and rhythm. S1, S2. No S3. No rub. ABDOMEN: Soft, nontender. EXTREMITIES: No edema. LAB DATA: Lab data revealed BUN and creatinine of 42 and 1.3, potassium 3.9, hemoglobin of 11.7. IMPRESSION: 1. Symptoms of exacerbation of chronic obstructive pulmonary disease with respiratory failure. 2. Symptoms of congestive heart failure with diastolic dysfunction. 3. Paroxysmal atrial fibrillation, back in sinus mechanism. 4. Worsening renal failure. 5. Peripheral vascular disease. RECOMMENDATION: From the cardiac standpoint, I will cut down her Lasix to once a day in view of the worsening renal function. Follow her renal function closely, increase her level of activity. The present dose of amiodarone will be continued for a week and then we will cut it down to 200 mg once a day, and if it is stable and continue to be in sinus mechanism that probably could be stopped down the road. MMODL / IJN: [id number] /
--- NOTE | 2017-12-06 11:51 | P.PN ---
Subjective Progress Note Date: 12/06/17 This is a 67 -year-old female, patient of [facility]. She has a known past medical history of atrial fibrillation, congestive heart failure, COPD, CVA, trigeminal neuralgia, HI, hypothyroidism, coronary artery disease with cardiac stent, kidney cancer status post right nephrectomy and left carotid endarterectomy. Patient was just recently discharged yesterday afternoon after being hospitalized for gastroenteritis, constipation, acute kidney injury and atrial fibrillation with rapid ventricular rate. Cardiology had increased metoprolol to 50 mg 3 times a day. Patient was doing well yesterday. She was cleared by all consulting physicians. Patient was eager for discharge home. History has been obtained from chart and nursing staff. Apparently around midnight patient had worsening shortness of breath some abdominal discomfort and a bloody nose. She was brought back into the emergency room by her daughter. After evaluation in the emergency room patient was in a be discharged home. However daughter was concerned and wanted her mother to stay. ENT was consulted in regards to the nosebleed. However, during the night patient went into respiratory failure with evidence of fluid overload. Per ER report patient had a rapid decompensation in the emergency department. Was wheezy. Chest x-ray had concerns of pulmonary edema. Patient became more drowsy. And she required to be intubated. Pulmonary service consulted. Patient was admitted to the ICU. Patient is currently intubated and sedated. Last chest x-ray showing diffuse lung disease stable with bilateral infiltrate and pleural effusion. Underlying CHF or atypical interstitial pneumonia is in the differential diagnosis. Pulmonary service has ordered cefepime and Vanco. IV steroids were ordered in the emergency room. Patient also seen by cardiology in regards to her atrial fibrillation with rapid ventricular response they've placed her on IV amiodarone. Cardizem drip has been discontinued. She also is on IV Lasix for congestive heart failure. Abdominal x-ray still showing evidence of stool in the colon. And it subsided enema has been ordered. She did receive a dose of lactulose in the ER with no results. 12/03/2017 patient remains in the ICU and intubated. She is currently off of the Levophed. She'll have a sedation holiday today and possibly extubation later. She is currently on tube feedings. Chest x-ray showing stable appearance. Sputum culture growing few gram-positive cocci. She did have an increase in her troponins up to 0.209 and then 0.155. Cardiology is aware. Patient remains in A. fib heart rate is controlled. Magnesium and potassium are being replaced. Pulmonary service has adjusted vent settings. Patient received soapsuds enema yesterday with no results 12/06/2017 patient was transferred out of the ICU over the weekend. Patient did require to be placed on BiPAP with evidence of fluid overload did receive an extra dose of IV Lasix yesterday. At this time she is refusing to use the BiPAP. She's on 5 L at 100%. Sputum culture growing MSSA. Patient reports she starting to feel better. She still has some cough and shortness of breath. Denies any chest pain. Reports having a bowel movement. Denies any burning with urination. Objective - Vital Signs Vital signs: Vital Signs Temp 96.4 F L 12/06/17 03:58 Pulse 84 12/06/17 09:08 Resp 16 12/06/17 08:00 BP 141/81 12/06/17 08:00 Pulse Ox 100 12/06/17 08:00 Intake & Output 12/05/17 12/06/17 12/06/17 18:59 06:59 18:59 Intake Total 950 550 240 Balance 950 550 240 Weight 67 kg 67 kg Intake: IV 200 550 Sodium Chloride 0.9% 1, 200 300 000 ml @ 20 mls/hr IV . Q24H [facility] Rx#:[id number] Sodium Chloride 0.9% 250 250 ml @ 999 mls/hr IV .Q16M ONE Rx#:[id number] Oral 750 240 Other: Voiding Method Bedside Commode # Voids 1 2 - Exam Head normocephalic Neck supple Lungs clear to auscultation bilaterally no wheezing or crackles Heart regular rate and rhythm S1-S2, no rub or gallop Abdomen is soft nontender nondistended positive bowel sounds no hepatosplenomegaly Extremities no edema Neuro patient is intubated and sedated - Labs CBC & Chem 7: 12/06/17 05:41 12/06/17 05:41 Labs: Abnormal Lab Results - Last 24 Hours (Table) 12/05/17 12/05/17 12/05/17 Range/Units 13:22 19:45 21:01 WBC (3.8-10.6) k/uL MCHC (31.0-37.0) g/dL RDW (11.5-15.5) % Neutrophils # (1.3-7.7) k/uL ABG pH 7.31 L (7.35-7.45) ABG pCO2 28 L (35-45) mmHg ABG HCO3 14 L (21-25) mmol/L ABG Total CO2 15 L (19-24) mmol/L BUN (7-17) mg/dL Creatinine (0.52-1.04) mg/dL Glucose (74-99) mg/dL POC Glucose (mg/dL) 140 H (75-99) mg/dL Plasma Lactic Acid Joshua 2.8 H* (0.7-2.0) mmol/L 12/05/17 12/06/17 12/06/17 Range/Units 23:58 05:41 05:41 WBC 12.8 H (3.8-10.6) k/uL MCHC 30.4 L (31.0-37.0) g/dL RDW 17.4 H (11.5-15.5) % Neutrophils # 10.6 H (1.3-7.7) k/uL ABG pH (7.35-7.45) ABG pCO2 (35-45) mmHg ABG HCO3 (21-25) mmol/L ABG Total CO2 (19-24) mmol/L BUN 42 H (7-17) mg/dL Creatinine 1.30 H (0.52-1.04) mg/dL Glucose 103 H (74-99) mg/dL POC Glucose (mg/dL) (75-99) mg/dL Plasma Lactic Acid Joshua 3.0 H* (0.7-2.0) mmol/L Microbiology - Last 24 Hours (Table) 12/02/17 09:42 Blood Culture - Preliminary Blood No Growth after 72 hours Assessment and Plan Assessment: 1. Acute on chronic hypoxic respiratory failure requiring mechanical ventilation. Secondary to an acute CHF and COPD exacerbation. Patient extubated on 12/03/2017 2. Acute COPD exacerbation: Continue nebulizer treatments and oral prednisone 3. Acute diastolic congestive heart failure exacerbation: Patient has been switched over to oral Lasix. BNP 9340. Echo from 11/13/2017 shows an EF of 55- 60% 4. Atrial fibrillation with rapid ventricular response: Cardiology following his adjusted her amiodarone to 200 mg twice a day 5. Constipation with abdominal x-ray revealing stool in the colon. Patient has had bowel movement 6. MSSA pneumonia : Infectious disease following. Continue cefazolin 7. Hypothyroidism resume Synthroid 8. Recent hospitalization with febrile illness and gastroenteritis 9. History of trigeminal neuralgia 10. 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 Patient had nosebleed present on admission. ENT was consulted 11. History of coronary artery disease with cardiac stent 12. History of CVA 13. History of vascular dementia 14. Elevated troponins: Cardiology aware and monitoring 15. Hypomagnesemia and hypokalemia patient receiving supplement 16. Acute on chronic kidney disease, stage II. Creatinine up to 1.30. Patient did require an extra dose of IV Lasix yesterday. GI prophylaxis Protonix and DVT prophylaxis Xarelto I performed an examination of the patient and discussed their management with the physician Engine Testing Supervisor. I have reviewed the Physician Engine Testing Supervisor's notes and agree with the documented findings and plan of care
[2017-12-06] MEDS: RIVAROXABAN 15 MG TAB PO SCH (16:54)
[2017-12-06] MEDS: MORPHINE ORAL SOLN 10 MG/5 ML CUP PO PRN ×2 (16:59→22:19)
[2017-12-06] MEDS: SODIUM CHLORIDE 0.9% 1,000 ML IV SCH (19:34)
--- NOTE | 2017-12-06 23:46 | PN ---
PROGRESS NOTE DATE OF SERVICE: 12/06/2017. REASON FOR FOLLOWUP: MSSA tracheobronchitis with question of pneumonia. INTERVAL HISTORY: The patient is afebrile. He seemed to be slightly comfortable. Denies having any chest pain. Very minimal cough. No nausea or vomiting. No abdominal pain no diarrhea. EXAMINATION: Blood pressure 115/70 with a pulse of 61, temperature 97. She is 100% on BiPAP. GENERAL DESCRIPTION: An elderly female lying in bed in no distress. RESPIRATORY SYSTEM: Unlabored breathing with decreased breath sounds. No wheeze. HEART: S1, S2. Regular rate and rhythm. ABDOMEN: Soft, no tenderness. LABS: Hemoglobin 11.7, white count 4.8 with a BUN of 42 and creatinine 1.30. DIAGNOSTIC IMPRESSION AND PLAN: Patient admitted to the hospital with difficulty in breathing, multifactorial. This patient likely has a component of early pneumonia or persistent bronchitis. Sputum has been Staph aureus, currently on cefazolin, will be transitioned to a short course of oral vanc on discharge. Continue supportive care. MMODL / IJN: [id number] /
[2017-12-07] MEDS: ceFAZolin IN SWFI 2 GM/20 ML SYRINGE IVP SCH ×3 (00:36→16:52)
[2017-12-07] MEDS: LEVOTHYROXINE 100 MCG TAB PO SCH (06:33)
[2017-12-07 06:48] LABS: Calcium 8.6 mg/dL (8.4-10.2)
[2017-12-07 06:52] LABS: Magnesium 2.2 mg/dL (1.6-2.3); Phosphorus 2.9 mg/dL (2.5-4.5); Potassium 4.8 mmol/L (3.5-5.1)
[2017-12-07 06:59] LABS: Anisocytosis Slight; Basophils # (A) 0.1 k/uL (0-0.2); Basophils % (A) 0 %; Eosinophils % (A) 0 %; HCT 43.3 % (34.0-46.0); HGB 12.9 gm/dL (11.4-16.0); Hypochromasia Marked; Lymphocytes # (A) 1.7 k/uL (1.0-4.8); Lymphocytes % (A) 11 %; MCHC 29.9 g/dL (31.0-37.0); Mean Platelet Volume 7.8; Monocytes # (A) 0.9 k/uL (0-1.0); Monocytes % (A) 6 %; Neutrophils # (A) 12.6 k/uL (1.3-7.7); Neutrophils % (A) 81 %; Platelet Count 348 k/uL (150-450); RBC 4.98 m/uL (3.80-5.40); RDW 17.7 % (11.5-15.5); WBC 15.5 k/uL (3.8-10.6)
[2017-12-07] MEDS: ATORVASTATIN 20 MG TAB PO SCH (07:59)
[2017-12-07] MEDS: CLOPIDOGREL 75 MG TAB PO SCH (07:59)
[2017-12-07] MEDS: METOPROLOL TARTRATE 50 MG TAB PO SCH ×2 (07:59→22:00)
[2017-12-07] MEDS: predniSONE 20 MG TAB PO SCH (07:59)
[2017-12-07] MEDS: AMIODARONE 200 MG TAB PO SCH ×2 (07:59→20:45)
[2017-12-07] MEDS: FUROSEMIDE 40 MG TAB PO SCH (07:59)
[2017-12-07] MEDS: SODIUM CHLORIDE 0.9% 1,000 ML IV SCH (08:00)
[2017-12-07 08:01] LABS: Polychromasia Present; Target Cells Present
[2017-12-07 08:02] LABS: Ovalocytes Present
[2017-12-07] MEDS: MORPHINE ORAL SOLN 10 MG/5 ML CUP PO PRN ×2 (08:03→21:08)
[2017-12-07] MEDS: BUDESONIDE 0.5 MG/2 ML NEBU INHALATION SCH ×2 (09:22→19:40)
--- NOTE | 2017-12-07 09:55 | CDI ---
Last Revision, July 2017 Documentation Clarification Form Date: 12/07/17 09:53 From: Marycruz Bray RN Admit Date: 12/02/2017 4:22:00 AM Patient Name: Kathy Mckeon Visit Number: [id number] ATTENTION: The Clinical Documentation Specialists (CDI) and [facility] Coding Staff appreciate your assistance in clarifying documentation. Please respond to the clarification below the line at the bottom and electronically sign. The CDI & [facility] Coding staff will review the response and follow-up if needed. Please note: Queries are made part of the Legal Health Record. If you have any questions, please contact the author of this message via ITS. Dr. Abelardo Kelly, Documentation and location in medical record included Sepsis. History/Risk Factors: a fib, chf, copd, cva, trigeminal neuralgia, mi, hypothyroidism, cad with stent, kidney cancer status post right nephrectormy, left carotid endarterectomy. asthma, gerd, htn, hyperlipidemia, memory impairment, oa, sleep apnea, vascular disorder, pt discharged yesterday, came back Clinical Indicators: WBC on admission: 6.7, today 12/07 15.5 Lactic acid: 2.8-3.0 Vitals signs on admission: T 97.9, P 122, R 20, 103/63, 77% RA Treatment: ID Consult: Dr Schrader Antibiotics: IV Cefazolin, IV Vanco, In your professional opinion, please clarify if these findings signify one of the following conditions, whether the condition is POA, and cause, if known: Sepsis ruled in Sepsis ruled out Severe Sepsis Septic Shock Other, please specify Unable to determine Present on Admission: Yes No Please continue to document in your progress notes, under the line below and/ or in the discharge summary in order to capture severity of illness and risk of mortality. Include clinical findings that support your diagnosis. sepsis present on admission MTDD
--- NOTE | 2017-12-07 10:29 | P.PN ---
Subjective Progress Note Date: 12/07/17 HPI: This is a 67-year-old female patient who is well-known to our services being seen examined and evaluated today on rounds. This patient recently was admitted to the hospital for 2017 to 12/01/2017 for atrial fibrillation, gastroenteritis, and acute COPD exacerbation. She returned to the emergency room on 12/02/2017 with complaints of dyspnea associated with her COPD. The patient initially declined any breathing treatments at that time related to concern of exacerbating her atrial fibrillation. It was noted that the patient also had a bloody nose at night and the patient was on Plavix since oral toe. She also complained of some mild diffuse abdominal discomfort and is known to have chronic IBS and constipation. While in the emergency room the initial chest x-ray shows no changes from her previous admission. Her abdominal x-ray did show some marked stool. Also while in the emergency room the patient was noted to have a rapid decline in her respiratory status. Her oxygen saturations were in the 70s and she required an increase in her oxygen demands and ultimately on BiPAP. A new chest x-ray was obtained a few hours later which did show new bilateral central edema and infiltrates. The patient's worsening respiratory status continued she was ultimately intubated in the emergency room and admitted to the intensive care unit with atrial fibrillation , CHF, acute hypoxic respiratory failure. Currently the patient is being examined and the intensive care unit and is on mechanical ventilation with assist control mode respiratory rate of 16, tidal volume 400, FiO2 80% and a PEEP of 5. She is synchronous with the vent. She is on propofol at this time. Also leaves fed has also been started due to hypotension currently she is on 12 mild aches and is responding well. Stat lab draws were obtained of her lactic acid and it came back at 1.7, the patient's white count is normal at 6.7 , hemoglobin is 11.6, sodium 139, potassium 4.2, chloride 99, CO2 28, BUN 14, creatinine 1, magnesium 1.9. Patient's ABGs were obtained this morning and did show a pH of 7.19 pCO2 43 pO2 122 and a bicarb of 16. We will obtain a stat loan services professional all of this ABG. Fluids have been switched to KVO, blood urine and sputum cultures are also sent. Patient continues to be tachycardic cardiology is on consult and have been adjusting cardiac medications in that regard. A PICC line is requested from interventional radiology and we are currently awaiting on responsive whether that can happen at this time or not. If the IR Doctor is unable to insert a PICC line then the patient will require a central line placement. We will obtain consent for these procedures with the patient's daughter. 12/03/17- patient is being seen examined evaluated today on rounds in the intensive care unit. The patient was noted to have an increase in her troponin levels overnight. Cardiology is aware. The patient continues on an amiodarone drip at this time and her rate is better controlled. We will fed has been off since midnight last night. She continues to diuresis and is having good output with the Lasix. Her chest x-ray is reviewed and has remain unchanged she currently continues on mechanical ventilation with propofol for sedation. Current ventilator settings are assist control mode with respiratory rate of 16 , tidal volume of 400, FiO2 50% and a PEEP of 5. She is synchronous with the vent. Her labs are reviewed. Her potassium and magnesium are both being replaced today. ABGs reviewed and are within normal limits. A sedation holiday is currently being performed. The patient's ventilator settings are being adjusted to FiO2 of 40% and a PEEP of 5. We will continue to monitor to see if she tolerates these ventilator changes and if so will do a CPAP trial with weaning parameters with pressure support of 5/5. Patient did have a soapsuds enema yesterday without results. Bowel sounds remain hypoactive, patient is passing flatus. She is on tube feeds and is tolerating that well well and is at goal. Of note patient also underwent a PICC line insertion yesterday. 12/04/17-12/05/17- Please see Dr. TIANNA Hyman progress notes 12/06/17- patient is being seen examined and evaluated today on rounds. The patient did have an episode of cyanosis associated with increased respiratory distress and was placed on BiPAP and given a dose of Lasix and improved with that treatment. Chest x-ray was reviewed and does show stable borderline to mild cardiomegaly, mild interstitial densities could reflect mild CHF or bronchitis/asthma. Upon examination she is resting up in bed on 4-5 L of supplemental oxygen. She did utilize the BiPAP overnight. She does state that she does get some shortness of breath with exertion and activity and has a very low tolerance for activity. She is being evaluated currently for inpatient rehab. She currently is on oral prednisone, Lasix bronchodilators and inhaled steroids. I'll labs and reports have been reviewed. Afebrile no further complaints. 12/07/17- patient being seen examined and evaluated today on rounds. The patient is resting up in bed on 5 L of supplemental oxygen. The patient continues to have shortness of breath with exertion and activity. She is very poor reserve at times. She refused her BiPAP overnight. Infectious disease is seeing the patient for positive sputum cultures and will be transitioned to oral Vanco per ID notes. Patient could certainly benefit from rehab. Objective - Vital Signs Vital signs: Vital Signs Temp 97.3 F L 12/07/17 08:00 Pulse 68 12/07/17 09:35 Resp 16 12/07/17 08:00 BP 113/55 12/07/17 08:13 Pulse Ox 94 L 12/07/17 09:24 Intake & Output 12/06/17 12/07/17 12/07/17 18:59 06:59 18:59 Intake Total 950 100 240 Output Total 300 Balance 950 -200 240 Weight 67 kg 77.2 kg Intake: Oral 950 100 240 Output: Urine 300 Other: Voiding Method Bedside Commode Bedside Commode # Voids 2 1 - Exam GENERAL EXAM: Alert, no acute distress HEAD: Normocephalic. EYES: Normal reaction of pupils, equal size. NOSE: Clear with pink turbinates. THROAT: No erythema or exudates. NECK: No masses, no JVD. CHEST: No chest wall deformity. LUNGS: Diminished bilaterally, no wheezes. Respirations even and unlabored. CVS: S1 and S2 normal with no audible mumurs, regular rhythm, tachycardic. ABDOMEN: No hepatosplenomegaly, normal bowel sounds, no guarding or rigidity. EXTREMITIES: Trace edema noted, pedal pulses palpable. CENTRAL NERVOUS SYSTEM: No focal deficits, moves all 4 extremities. - Labs CBC & Chem 7: 12/07/17 06:18 12/07/17 06:18 Labs: Abnormal Lab Results - Last 24 Hours (Table) 12/07/17 12/07/17 Range/Units :18 06:18 WBC 15.5 H (3.8-10.6) k/uL MCHC 29.9 L (31.0-37.0) g/dL RDW 17.7 H (11.5-15.5) % Neutrophils # 12.6 H (1.3-7.7) k/uL BUN 45 H (7-17) mg/dL Creatinine 1.20 H (0.52-1.04) mg/dL Microbiology - Last 24 Hours (Table) 12/02/17 09:42 Blood Culture - Preliminary Blood No Growth after 96 hours Assessment and Plan Assessment: Assessment SIRS 2/4 Acute on chronic hypoxic respiratory distress Atrial fibrillation and tachycardia Acute exacerbation of COPD Acute exacerbation of CHF Abdominal discomfort with marked stool noted on abdominal x-ray Hypotension Possible underlying pneumonia, suspect mixed bacterial, sputum cultures revealed staph Plan Patient could benefit from rehab. Medications have been reviewed and will be continued as ordered. Sputum cultures were positive for staphylococcal aureus ID on consult.. Continue with nebulizer treatments and steroids. Continue with pulmonary hygiene, coughing and deep breathing exercises, and supportive care. Supplemental oxygen to maintain oxygen saturations of 92% or better, may utilize BiPAP at night and when necessary. Initiate and encourage incentive spirometer GI and DVT prophylaxis. Patient is currently being evaluated by physical medicine and may benefit from some inpatient therapies if appropriate. We will continue to monitor labs/results and adjust treatment as necessary. Further recommendations pending. I performed an examination of the patient and discussed their management with the nurse practitioner. I have reviewed the nurse practitioner's note and agree with the documented findings and plan of care.
--- NOTE | 2017-12-07 10:40 | P.PN ---
Subjective Progress Note Date: 12/07/17 This is a 67 -year-old female, patient of [facility]. She has a known past medical history of atrial fibrillation, congestive heart failure, COPD, CVA, trigeminal neuralgia, [place], hypothyroidism, coronary artery disease with cardiac stent, kidney cancer status post right nephrectomy and left carotid endarterectomy. Patient was just recently discharged yesterday afternoon after being hospitalized for gastroenteritis, constipation, acute kidney injury and atrial fibrillation with rapid ventricular rate. Cardiology had increased metoprolol to 50 mg 3 times a day. Patient was doing well yesterday. She was cleared by all consulting physicians. Patient was eager for discharge home. History has been obtained from chart and nursing staff. Apparently around midnight patient had worsening shortness of breath some abdominal discomfort and a bloody nose. She was brought back into the emergency room by her daughter. After evaluation in the emergency room patient was in a be discharged home. However daughter was concerned and wanted her mother to stay. ENT was consulted in regards to the nosebleed. However, during the night patient went into respiratory failure with evidence of fluid overload. Per ER report patient had a rapid decompensation in the emergency department. Was wheezy. Chest x-ray had concerns of pulmonary edema. Patient became more drowsy. And she required to be intubated. Pulmonary service consulted. Patient was admitted to the ICU. Patient is currently intubated and sedated. Last chest x-ray showing diffuse lung disease stable with bilateral infiltrate and pleural effusion. Underlying CHF or atypical interstitial pneumonia is in the differential diagnosis. Pulmonary service has ordered cefepime and Vanco. IV steroids were ordered in the emergency room. Patient also seen by cardiology in regards to her atrial fibrillation with rapid ventricular response they've placed her on IV amiodarone. Cardizem drip has been discontinued. She also is on IV Lasix for congestive heart failure. Abdominal x-ray still showing evidence of stool in the colon. And it subsided enema has been ordered. She did receive a dose of lactulose in the ER with no results. 12/03/2017 patient remains in the ICU and intubated. She is currently off of the Levophed. She'll have a sedation holiday today and possibly extubation later. She is currently on tube feedings. Chest x-ray showing stable appearance. Sputum culture growing few gram-positive cocci. She did have an increase in her troponins up to 0.209 and then 0.155. Cardiology is aware. Patient remains in A. fib heart rate is controlled. Magnesium and potassium are being replaced. Pulmonary service has adjusted vent settings. Patient received soapsuds enema yesterday with no results 12/06/2017 patient was transferred out of the ICU over the weekend. Patient did require to be placed on BiPAP with evidence of fluid overload did receive an extra dose of IV Lasix yesterday. At this time she is refusing to use the BiPAP. She's on 5 L at 100%. Sputum culture growing MSSA. Patient reports she starting to feel better. She still has some cough and shortness of breath. Denies any chest pain. Reports having a bowel movement. Denies any burning with urination. 12/07/2017 patient lying in bed comfortably. Short of breath with activity. She is not a candidate for inpatient rehab. However, she has been accepted at [facility] when medically stable. White count has increased to 15.5. Patient reports improvement in her cough and shortness of breath. She is reporting having bowel movements. Denies any burning with urination. Denies any chest pain. Denies any nausea or vomiting. She still requiring 5 L of oxygen. She did use the BiPAP for a little out through the night. And is now on 5 L satting at 94%. Patient also reported some pain in her nose and back to the night. Symptoms has improved with pain medication. Objective - Vital Signs Vital signs: Vital Signs Temp 97.3 F L 12/07/17 08:00 Pulse 68 12/07/17 09:35 Resp 16 12/07/17 08:00 BP 113/55 12/07/17 08:13 Pulse Ox 94 L 12/07/17 09:24 Intake & Output 12/06/17 12/07/17 12/07/17 18:59 06:59 18:59 Intake Total 950 100 240 Output Total 300 Balance 950 -200 240 Weight 67 kg 77.2 kg Intake: Oral 950 100 240 Output: Urine 300 Other: Voiding Method Bedside Commode Bedside Commode # Voids 2 1 - Exam Head normocephalic Neck supple Lungs clear to auscultation bilaterally no wheezing or crackles Heart regular rate and rhythm S1-S2, no rub or gallop Abdomen is soft nontender nondistended positive bowel sounds no hepatosplenomegaly Extremities no edema Neuro alert and orientated 3. Answering questions appropriately - Labs CBC & Chem 7: 12/07/17 06:18 12/07/17 06:18 Labs: Abnormal Lab Results - Last 24 Hours (Table) 12/07/17 12/07/17 Range/Units 06:18 06:18 WBC 15.5 H (3.8-10.6) k/uL MCHC 29.9 L (31.0-37.0) g/dL RDW 17.7 H (11.5-15.5) % Neutrophils # 12.6 H (1.3-7.7) k/uL BUN 45 H (7-17) mg/dL Creatinine 1.20 H (0.52-1.04) mg/dL Microbiology - Last 24 Hours (Table) 12/02/17 09:42 Blood Culture - Preliminary Blood No Growth after 96 hours Assessment and Plan Assessment: 1. Acute on chronic hypoxic respiratory failure requiring mechanical ventilation. Secondary to an acute CHF and COPD exacerbation. Patient extubated on 12/03/2017 2. Acute COPD exacerbation: Continue nebulizer treatments and oral prednisone 3. Acute diastolic congestive heart failure exacerbation: Etiology has decreased Lasix to once a day. BNP 9340. Echo from 11/13/2017 shows an EF of 55-60% 4. Atrial fibrillation with rapid ventricular response: Cardiology following his adjusted her amiodarone to 200 mg twice a day. Titrate amiodarone per cardiology recommendations 5. Constipation with abdominal x-ray revealing stool in the colon. Patient has had bowel movement 6. MSSA pneumonia : Infectious disease following. Continue cefazolin 7. Hypothyroidism resume Synthroid 8. Recent hospitalization with febrile illness and gastroenteritis 9. History of trigeminal neuralgia 10. 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 Patient had nosebleed present on admission. ENT was consulted 11. History of coronary artery disease with cardiac stent 12. History of CVA 13. History of vascular dementia 14. Elevated troponins: Evaluated by cardiology 15. Hypomagnesemia and hypokalemia patient receiving supplement 16. Acute on chronic kidney disease, stage II. Creatinine is trending down to 1.2. Cardiology has cut back on the Lasix 17. Leukocytosis: White count has bumped up to 15.5. She is on prednisone this may be contributing factor. We'll await further infectious disease evaluation GI prophylaxis Protonix and DVT prophylaxis Xarelto When patient is medically stable for discharge she will be transferred to [facility] for rehabilitation. She is not a candidate for inpatient rehab I performed an examination of the patient and discussed their management with the physician Car Shagger. I have reviewed the Physician Car Shagger's notes and agree with the documented findings and plan of care
--- NOTE | 2017-12-07 12:47 | PN ---
PROGRESS NOTE Mrs. Mckeon is a 67-year-old female who presented with exacerbation of COPD. She is feeling much better today. She continues to be in sinus mechanism. She denies any symptoms of chest pain. She denies any dizziness. She has a preserved systolic function and had evidence of congestive heart failure on the basis of diastolic dysfunction. She feels stronger. She continues to be on amiodarone 200 mg twice a day, Lipitor 20 mg daily, Plavix 75 mg daily, furosemide 40 mg daily, metoprolol tartrate 50 mg twice a day, prednisone and Xarelto 15 mg daily. PHYSICAL EXAMINATION: Blood pressure 113/50 with the heart rate in the 60s. LUNGS: Clear with decreased air exchange. No wheezes. HEART: Regular rate and rhythm. S1, S2. No S3, no rub with systolic murmur. ABDOMEN: Soft, nontender. EXTREMITIES: No edema. LAB DATA: Lab data revealed a BUN and creatinine of 45 and 1.2, hemoglobin of 12.9. IMPRESSION: 1. Respiratory failure with exacerbation of chronic obstructive pulmonary disease, stable. 2. Paroxysmal atrial fibrillation. Remains in sinus mechanism. 3. History of peripheral disease. 4. Prior episode of congestive heart failure related to diastolic dysfunction, improved. 5. Renal failure. RECOMMENDATION: We will continue present therapy. Increase her level of activity. She will continue present dose of amiodarone for a week, then I will cut it down to 200 mg once a day, and she will be evaluated as an outpatient to see if that needs to be continued. MMODL / IJN: [id number] /
--- NOTE | 2017-12-07 15:37 | US ---
EXAMINATION TYPE: US venous doppler duplex UE RT DATE OF EXAM: 12/07/2017 COMPARISON: NONE CLINICAL HISTORY: edema. PICC line in basilic vein and patient has edema SIDE PERFORMED: Right could not compress IJV, not due to thrombus but due to patients pain. Right Arm: Appears negative for DVT Grayscale, color doppler, spectral doppler imaging performed of the deep veins of the right upper ext remity. There is normal flow and vascular waveforms. Compression views are suboptimal except right i nternal jugular vein which patient would not allow compression due to pain. IMPRESSION: No ultrasound evidence for acute DVT in the right upper extremity.
[2017-12-07] MEDS: RIVAROXABAN 15 MG TAB PO SCH (16:50)
--- NOTE | 2017-12-07 22:50 | PN ---
PROGRESS NOTE DATE OF SERVICE: 12/07/2017 REASON FOR FOLLOWUP: MSSA tracheobronchitis/early pneumonia. INTERVAL HISTORY: The patient is afebrile. She is breathing more comfortably. Denies significant chest pain. Cough is decreased intensity. No nausea, vomiting. No abdominal pain or any diarrhea. EXAMINATION: Blood pressure 106/68 with a pulse of 55, temperature 97. She is 95% on 5L nasal cannula. General description is an elderly female up in the chair in no distress. RESPIRATORY SYSTEM: Unlabored breathing with decreased intensive breath sounds. No wheeze. HEART: S1, S2. Regular rate and rhythm. ABDOMEN: Soft. No tenderness. LABS: Hemoglobin is 12.9 with a white count of 15.5. BUN of 45, creatinine 1.20. DIAGNOSTIC IMPRESSION AND PLAN: Patient with a positive sputum culture with methicillin-sensitive Staphylococcus aureus, likely tracheobronchitis/early pneumonia. Patient currently on Cefazolin, will be continued with the plan to finish therapy with oral Keflex. Continue supportive care. MMODL / IJN: [id number] /
[2017-12-08] MEDS: LEVOTHYROXINE 100 MCG TAB PO SCH (06:39)
[2017-12-08] MEDS: PANTOPRAZOLE 40 MG TABLET PO SCH (06:39)
[2017-12-08 07:24] LABS: Albumin 2.8 g/dL (3.5-5.0); Anisocytosis Slight; Basophils % (A) 0 %; Calcium 8.8 mg/dL (8.4-10.2); Eosinophils % (A) 0 %; HGB 12.3 gm/dL (11.4-16.0); Hypochromasia Moderate; Lymphocytes # (A) 1.5 k/uL (1.0-4.8); Lymphocytes % (A) 11 %; MCH 25.9 pg (25.0-35.0); MCHC 30.7 g/dL (31.0-37.0); MCV 84.2 fL (80.0-100.0); Mean Platelet Volume 7.1; Monocytes # (A) 0.7 k/uL (0-1.0); Monocytes % (A) 5 %; Neutrophils # (A) 10.9 k/uL (1.3-7.7); Neutrophils % (A) 82 %; Platelet Count 378 k/uL (150-450); Potassium 4.5 mmol/L (3.5-5.1); RBC 4.75 m/uL (3.80-5.40); RDW 18.1 % (11.5-15.5); Total Bilirubin 0.3 mg/dL (0.2-1.3); WBC 13.3 k/uL (3.8-10.6)
[2017-12-08] MEDS: ceFAZolin IN SWFI 2 GM/20 ML SYRINGE IVP SCH ×3 (08:45→15:51)
[2017-12-08] MEDS: CLOPIDOGREL 75 MG TAB PO SCH (08:46)
[2017-12-08] MEDS: FUROSEMIDE 40 MG TAB PO SCH (08:46)
[2017-12-08] MEDS: ATORVASTATIN 20 MG TAB PO SCH (08:46)
[2017-12-08] MEDS: AMIODARONE 200 MG TAB PO SCH ×2 (08:46→20:08)
[2017-12-08] MEDS: METOPROLOL TARTRATE 50 MG TAB PO SCH ×2 (08:46→20:08)
[2017-12-08] MEDS: MORPHINE ORAL SOLN 10 MG/5 ML CUP PO PRN ×3 (08:47→20:12)
[2017-12-08] MEDS: predniSONE 20 MG TAB PO SCH (08:47)
[2017-12-08] MEDS: BUDESONIDE 0.5 MG/2 ML NEBU INHALATION SCH ×2 (09:51→19:14)
--- NOTE | 2017-12-08 10:15 | P.PN ---
Subjective Progress Note Date: 12/08/17 This is a 67 -year-old female, patient of [facility]. She has a known past medical history of atrial fibrillation, congestive heart failure, COPD, CVA, trigeminal neuralgia, NM, hypothyroidism, coronary artery disease with cardiac stent, kidney cancer status post right nephrectomy and left carotid endarterectomy. Patient was just recently discharged yesterday afternoon after being hospitalized for gastroenteritis, constipation, acute kidney injury and atrial fibrillation with rapid ventricular rate. Cardiology had increased metoprolol to 50 mg 3 times a day. Patient was doing well yesterday. She was cleared by all consulting physicians. Patient was eager for discharge home. History has been obtained from chart and nursing staff. Apparently around midnight patient had worsening shortness of breath some abdominal discomfort and a bloody nose. She was brought back into the emergency room by her daughter. After evaluation in the emergency room patient was in a be discharged home. However daughter was concerned and wanted her mother to stay. ENT was consulted in regards to the nosebleed. However, during the night patient went into respiratory failure with evidence of fluid overload. Per ER report patient had a rapid decompensation in the emergency department. Was wheezy. Chest x-ray had concerns of pulmonary edema. Patient became more drowsy. And she required to be intubated. Pulmonary service consulted. Patient was admitted to the ICU. Patient is currently intubated and sedated. Last chest x-ray showing diffuse lung disease stable with bilateral infiltrate and pleural effusion. Underlying CHF or atypical interstitial pneumonia is in the differential diagnosis. Pulmonary service has ordered cefepime and Vanco. IV steroids were ordered in the emergency room. Patient also seen by cardiology in regards to her atrial fibrillation with rapid ventricular response they've placed her on IV amiodarone. Cardizem drip has been discontinued. She also is on IV Lasix for congestive heart failure. Abdominal x-ray still showing evidence of stool in the colon. And it subsided enema has been ordered. She did receive a dose of lactulose in the ER with no results. On 12/08/2017 patient alert and oriented 3 lying in bed comfortably. Complaining of shortness of breath with activity. She is still requiring oxygen 5 L nasal cannula She is not a candidate for inpatient rehab per Dr. Gonzalez. However, she has been accepted at [facility] when medically stable. There is some improvement in her cough and shortness of breath. Denies any chest pain. Denies any nausea or vomiting. No abdominal pain patient is having bowel movements there is no urinary symptoms. Objective - Vital Signs Vital signs: Vital Signs Temp 96.9 F L 12/08/17 08:00 Pulse 62 12/08/17 08:00 Resp 20 12/08/17 08:00 BP 128/63 12/08/17 08:00 Pulse Ox 90 L 12/08/17 08:00 Intake & Output 12/07/17 12/08/17 12/08/17 18:59 06:59 18:59 Intake Total 820 240 Output Total 600 Balance 820 -600 240 Weight 77.6 kg Intake: Oral 820 240 Output: Urine 600 Other: Voiding Method Bedside Commode Bedside Commode Bedside Commode # Voids 1 2 # Bowel Movements 1 1 - Exam Head normocephalic and atraumatic Neck supple no JVD no goiter no lymphadenopathy Lungs clear to auscultation bilaterally no wheezing or crackles Heart regular rate and rhythm S1-S2, no rub or gallop Abdomen is soft nontender nondistended positive bowel sounds no hepatosplenomegaly Extremities no edema no cyanosis or clubbing there is bilateral upper extremity edema there is bluish discoloration in the right wrist with evidence of hematoma Neuro alert and orientated 3. Answering questions appropriately - Labs CBC & Chem 7: 12/08/17 06:21 12/08/17 06:21 Labs: Abnormal Lab Results - Last 24 Hours (Table) 12/08/17 12/08/17 Range/Units 06:21 06:21 WBC 13.3 H (3.8-10.6) k/uL MCHC 30.7 L (31.0-37.0) g/dL RDW 18.1 H (11.5-15.5) % Neutrophils # 10.9 H (1.3-7.7) k/uL BUN 41 H (7-17) mg/dL Total Protein 5.0 L (6.3-8.2) g/dL Albumin 2.8 L (3.5-5.0) g/dL Microbiology - Last 24 Hours (Table) 12/02/17 09:42 Blood Culture - Preliminary Blood No Growth after 120 hours Assessment and Plan Plan: 1. Acute on chronic hypoxic respiratory failure requiring mechanical ventilation. Secondary to an acute CHF and COPD exacerbation. Patient extubated on 12/03/2017 2. Acute COPD exacerbation: Continue nebulizer treatments and oral prednisone 3. Acute diastolic congestive heart failure exacerbation: Cardiology has decreased Lasix to once a day. BNP 9340. Echo from 11/13/2017 shows an EF of 55-60% 4. Atrial fibrillation with rapid ventricular response: Cardiology following his adjusted her amiodarone to 200 mg twice a day. Titrate amiodarone per cardiology recommendations 5. Constipation with abdominal x-ray revealing stool in the colon. Patient has had bowel movement 6. MSSA pneumonia : Infectious disease following. Continue cefazolin 7. Hypothyroidism resume Synthroid 8. Recent hospitalization with febrile illness and gastroenteritis 9. History of trigeminal neuralgia 10. 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 Patient had nosebleed present on admission. ENT was consulted 11. History of coronary artery disease with cardiac stent 12. History of CVA 13. History of vascular dementia 14. Elevated troponins: Evaluated by cardiology, no intervention recommended at this time 15. Hypomagnesemia and hypokalemia patient receiving supplement 16. Acute on chronic kidney disease, stage II. Creatinine is trending down to 1.2. Cardiology has cut back on the Lasix 17. Leukocytosis: White count has bumped up to 13.3. She is on prednisone this may be contributing factor. We'll await further infectious disease evaluation GI prophylaxis Protonix and DVT prophylaxis Xarelto Continue current management patient will be transferred to [facility] for rehab when stable
--- NOTE | 2017-12-08 10:26 | CONS ---
CONSULTATION This is a 67-year-old female admitted to [facility]. I was consulted for right arm swelling. This patient has multiple medical issues. She has been intubated for respiratory failure and now the patient is on [facility]. The patient has history of atrial fibrillation with regular ventricular response, history of acute diastolic congestive heart failure, history of CVA in the past. The patient had ultrasound of the right arm, which showed no evidence of DVT. SURGICAL HISTORY: History of bilateral carotid endarterectomy, history of stent placed in the past. The patient also has history of coronary artery stent placed in the past. PHYSICAL EXAMINATION: On examination in the room, patient was lying comfortably in bed. Neck is supple. Chest with crackles bilateral. Brachial and radial pulses are present by the Doppler. The patient has capillary refill present. Motor function is present. Compared to the left arm, right arm is much cooler. Radial pulse on the left side is 1+. Patient does not have any ischemic changes. Does not complain of any pain. Definitely she has a Doppler signal for brachial, radial and ulnar artery. There is some bruise in was noted and some swelling of the right arm noted, but there is no evidence of DVT. PLAN: I will discuss with Internal Medicine and follow with you and if the patient is a candidate, we may consider doing angiography to evaluate further. MMODL / IJN: [id number] /
--- NOTE | 2017-12-08 10:46 | P.PN ---
<Samantha Xiao E - Last Filed: 12/08/17 10:43> Subjective Progress Note Date: 12/08/17 HPI: This is a 67-year-old female patient who is well-known to our services being seen examined and evaluated today on rounds. This patient recently was admitted to the hospital for 2017 to 12/01/2017 for atrial fibrillation, gastroenteritis, and acute COPD exacerbation. She returned to the emergency room on 12/02/2017 with complaints of dyspnea associated with her COPD. The patient initially declined any breathing treatments at that time related to concern of exacerbating her atrial fibrillation. It was noted that the patient also had a bloody nose at night and the patient was on Plavix since oral toe. She also complained of some mild diffuse abdominal discomfort and is known to have chronic IBS and constipation. While in the emergency room the initial chest x-ray shows no changes from her previous admission. Her abdominal x-ray did show some marked stool. Also while in the emergency room the patient was noted to have a rapid decline in her respiratory status. Her oxygen saturations were in the 70s and she required an increase in her oxygen demands and ultimately on BiPAP. A new chest x-ray was obtained a few hours later which did show new bilateral central edema and infiltrates. The patient's worsening respiratory status continued she was ultimately intubated in the emergency room and admitted to the intensive care unit with atrial fibrillation , CHF, acute hypoxic respiratory failure. Currently the patient is being examined and the intensive care unit and is on mechanical ventilation with assist control mode respiratory rate of 16, tidal volume 400, FiO2 80% and a PEEP of 5. She is synchronous with the vent. She is on propofol at this time. Also leaves fed has also been started due to hypotension currently she is on 12 mild aches and is responding well. Stat lab draws were obtained of her lactic acid and it came back at 1.7, the patient's white count is normal at 6.7 , hemoglobin is 11.6, sodium 139, potassium 4.2, chloride 99, CO2 28, BUN 14, creatinine 1, magnesium 1.9. Patient's ABGs were obtained this morning and did show a pH of 7.19 pCO2 43 pO2 122 and a bicarb of 16. We will obtain a stat vice president of procurement all of this ABG. Fluids have been switched to KVO, blood urine and sputum cultures are also sent. Patient continues to be tachycardic cardiology is on consult and have been adjusting cardiac medications in that regard. A PICC line is requested from interventional radiology and we are currently awaiting on responsive whether that can happen at this time or not. If the IR Doctor is unable to insert a PICC line then the patient will require a central line placement. We will obtain consent for these procedures with the patient's daughter. 12/03/17- patient is being seen examined evaluated today on rounds in the intensive care unit. The patient was noted to have an increase in her troponin levels overnight. Cardiology is aware. The patient continues on an amiodarone drip at this time and her rate is better controlled. We will fed has been off since midnight last night. She continues to diuresis and is having good output with the Lasix. Her chest x-ray is reviewed and has remain unchanged she currently continues on mechanical ventilation with propofol for sedation. Current ventilator settings are assist control mode with respiratory rate of 16 , tidal volume of 400, FiO2 50% and a PEEP of 5. She is synchronous with the vent. Her labs are reviewed. Her potassium and magnesium are both being replaced today. ABGs reviewed and are within normal limits. A sedation holiday is currently being performed. The patient's ventilator settings are being adjusted to FiO2 of 40% and a PEEP of 5. We will continue to monitor to see if she tolerates these ventilator changes and if so will do a CPAP trial with weaning parameters with pressure support of 5/5. Patient did have a soapsuds enema yesterday without results. Bowel sounds remain hypoactive, patient is passing flatus. She is on tube feeds and is tolerating that well well and is at goal. Of note patient also underwent a PICC line insertion yesterday. 12/04/17-12/05/17- Please see Dr. TIANNA Hyman progress notes 12/06/17- patient is being seen examined and evaluated today on rounds. The patient did have an episode of cyanosis associated with increased respiratory distress and was placed on BiPAP and given a dose of Lasix and improved with that treatment. Chest x-ray was reviewed and does show stable borderline to mild cardiomegaly, mild interstitial densities could reflect mild CHF or bronchitis/asthma. Upon examination she is resting up in bed on 4-5 L of supplemental oxygen. She did utilize the BiPAP overnight. She does state that she does get some shortness of breath with exertion and activity and has a very low tolerance for activity. She is being evaluated currently for inpatient rehab. She currently is on oral prednisone, Lasix bronchodilators and inhaled steroids. I'll labs and reports have been reviewed. Afebrile no further complaints. 12/07/17- patient being seen examined and evaluated today on rounds. The patient is resting up in bed on 5 L of supplemental oxygen. The patient continues to have shortness of breath with exertion and activity. She is very poor reserve at times. She refused her BiPAP overnight. Infectious disease is seeing the patient for positive sputum cultures and will be transitioned to oral Vanco per ID notes. Patient could certainly benefit from rehab. 12/08/17- patient being seen examined and evaluated today on pounds. She is resting up in bed on 4-5 L of supplemental oxygen via nasal cannula. She states she is feeling slightly better today. She has been slowly improving her respiratory status. She did have a positive sputum culture with staph and is on appropriate antibiotics. Discharge planning in process to rehab facility. She is afebrile no further complaints. Objective - Vital Signs Vital signs: Vital Signs Temp 96.9 F L 12/08/17 08:00 Pulse 62 12/08/17 08:00 Resp 20 12/08/17 08:00 BP 128/63 12/08/17 08:00 Pulse Ox 90 L 12/08/17 08:00 Intake & Output 12/07/17 12/08/17 12/08/17 18:59 06:59 18:59 Intake Total 820 240 Output Total 600 Balance 820 -600 240 Weight 77.6 kg Intake: Oral 820 240 Output: Urine 600 Other: Voiding Method Bedside Commode Bedside Commode Bedside Commode # Voids 1 2 # Bowel Movements 1 1 - Exam GENERAL EXAM: Alert, no acute distress HEAD: Normocephalic. EYES: Normal reaction of pupils, equal size. NOSE: Clear with pink turbinates. THROAT: No erythema or exudates. NECK: No masses, no JVD. CHEST: No chest wall deformity. LUNGS: Diminished bilaterally, some faint wheezes. Respirations even and unlabored. CVS: S1 and S2 normal with no audible mumurs, regular rhythm, tachycardic. ABDOMEN: No hepatosplenomegaly, normal bowel sounds, no guarding or rigidity. EXTREMITIES: Trace edema noted, pedal pulses palpable. CENTRAL NERVOUS SYSTEM: No focal deficits, moves all 4 extremities. - Labs CBC & Chem 7: 12/08/17 06:21 12/08/17 06:21 Labs: Abnormal Lab Results - Last 24 Hours (Table) 12/08/17 12/08/17 Range/Units 06:21 06:21 WBC 13.3 H (3.8-10.6) k/uL MCHC 30.7 L (31.0-37.0) g/dL RDW 18.1 H (11.5-15.5) % Neutrophils # 10.9 H (1.3-7.7) k/uL BUN 41 H (7-17) mg/dL Total Protein 5.0 L (6.3-8.2) g/dL Albumin 2.8 L (3.5-5.0) g/dL Microbiology - Last 24 Hours (Table) 12/02/17 09:42 Blood Culture - Preliminary Blood No Growth after 120 hours Assessment and Plan Assessment: Assessment SIRS 2/4 Acute on chronic hypoxic respiratory distress Atrial fibrillation and tachycardia Acute exacerbation of COPD Acute exacerbation of CHF Abdominal discomfort with marked stool noted on abdominal x-ray Hypotension Possible underlying pneumonia, suspect mixed bacterial, sputum cultures revealed staph Plan Discharge planning in process. Patient could benefit from rehab. Medications have been reviewed and will be continued as ordered. Sputum cultures were positive for staphylococcal aureus ID on consult.. Continue with nebulizer treatments and steroids. Continue with pulmonary hygiene, coughing and deep breathing exercises, and supportive care. Supplemental oxygen to maintain oxygen saturations of 92% or better, may utilize BiPAP at night and when necessary. Initiate and encourage incentive spirometer GI and DVT prophylaxis. Patient is currently being evaluated by physical medicine and may benefit from some inpatient therapies if appropriate. We will continue to monitor labs/results and adjust treatment as necessary. Further recommendations pending. I performed an examination of the patient and discussed their management with the nurse practitioner. I have reviewed the nurse practitioner's note and agree with the documented findings and plan of care. <Florinda Hutchinson - Last Filed: 12/08/17 11:03> Objective - Vital Signs Vital signs: Vital Signs Temp 96.9 F L 12/08/17 08:00 Pulse 62 12/08/17 08:00 Resp 20 12/08/17 08:00 BP 128/63 12/08/17 08:00 Pulse Ox 90 L 12/08/17 08:00 Intake & Output 12/07/17 12/08/17 12/08/17 18:59 06:59 18:59 Intake Total 820 240 Output Total 600 Balance 820 -600 240 Weight 77.6 kg Intake: Oral 820 240 Output: Urine 600 Other: Voiding Method Bedside Commode Bedside Commode Bedside Commode # Voids 1 2 # Bowel Movements 1 1 - Labs CBC & Chem 7: 12/08/17 06:21 12/08/17 06:21 Labs: Abnormal Lab Results - Last 24 Hours (Table) 12/08/17 12/08/17 Range/Units 06:21 06:21 WBC 13.3 H (3.8-10.6) k/uL MCHC 30.7 L (31.0-37.0) g/dL RDW 18.1 H (11.5-15.5) % Neutrophils # 10.9 H (1.3-7.7) k/uL BUN 41 H (7-17) mg/dL Total Protein 5.0 L (6.3-8.2) g/dL Albumin 2.8 L (3.5-5.0) g/dL Microbiology - Last 24 Hours (Table) 12/02/17 09:42 Blood Culture - Preliminary Blood No Growth after 120 hours Assessment and Plan Assessment: Patient seen and examined. Patient states she is feeling better overall. She is hoping to go to rehab soon. Continue steroid taper, ABX per ID. Juam pulmicort. Singulair. PT and OT. Steroid taper. Patient to use CPAP from home while in rehab. OK to DC to rehab from pulmonary standpoint. ~Florinda Hutchinson DO
--- NOTE | 2017-12-08 15:12 | P.PN ---
Subjective Progress Note Date: 12/08/17 Principal diagnosis: Afib This is a pleasant 67-year-old female who follows regularly with Dr. Torres in the office. She had recently been discharged from the hospital and repeat presented with respiratory failure. She was initially in the intensive care unit, now being followed on the telemetry unit. She's up in the chair this morning at the time of my examination, continues to be in atrial fibrillation with an uncontrolled ventricular response. Breathing is overall stable. Blood pressure 124/70, heart rate this morning is in the 1 teens to 120 range. We'll put the patient back on her metoprolol, at a lower dose 50 mg by mouth twice a day today, she is also on amiodarone 400 mg one tablet by mouth twice a day. Diuretics have been changed over to oral. 12/08/2017 Patient seen and examined this morning, hemodynamically stable. Remaining in normal sinus rhythm. She does state that her breathing has improved today, continues to have mild cough. Objective - Vital Signs Vital signs: Vital Signs Temp 97.2 F L 12/08/17 12:00 Pulse 62 12/08/17 12:00 Resp 20 12/08/17 12:00 BP 109/70 12/08/17 12:00 Pulse Ox 94 L 12/08/17 12:00 Intake & Output 12/07/17 12/08/17 12/08/17 18:59 06:59 18:59 Intake Total 820 720 Output Total 600 1200 Balance 820 -600 -480 Weight 77.6 kg Intake: Oral 820 720 Output: Urine 600 1200 Other: Voiding Method Bedside Commode Bedside Commode Bedside Commode # Voids 1 2 # Bowel Movements 1 1 - Exam PHYSICAL EXAMINATION: HEENT: Head is atraumatic, normocephalic. Pupils equal, round. Neck is supple. There is no elevated jugular venous pressure. HEART EXAMINATION: Heart S1 and S2 irregularly irregular CHEST EXAMINATION:'s reveal fine expiratory wheezing ABDOMEN: Soft, nontender. Bowel sounds are heard. No organomegaly noted. EXTREMITIES: 2+ peripheral pulses with evidence of peripheral edema and no calf tenderness noted. NEUROLOGIC patient is awake, alert and oriented -3. . - Labs CBC & Chem 7: 12/08/17 06:21 12/08/17 06:21 Labs: Abnormal Lab Results - Last 24 Hours (Table) 12/08/17 12/08/17 Range/Units 06:21 06:21 WBC 13.3 H (3.8-10.6) k/uL MCHC 30.7 L (31.0-37.0) g/dL RDW 18.1 H (11.5-15.5) % Neutrophils # 10.9 H (1.3-7.7) k/uL BUN 41 H (7-17) mg/dL Total Protein 5.0 L (6.3-8.2) g/dL Albumin 2.8 L (3.5-5.0) g/dL Microbiology - Last 24 Hours (Table) 12/02/17 09:42 Blood Culture - Final Blood No Growth after 144 hours Assessment and Plan Plan: Assessment #1 acute hypoxic respiratory failure #2 COPD exacerbation. #3 congestive heart failure exacerbation secondary to diastole dysfunction, acute on chronic #4 atrial fibrillation with uncontrolled heart rate #5 hypertension requiring vasopressors. Sepsis to be ruled out. #6 known severe underlying coronary artery disease and prior revascularization #7 known severe peripheral arterial disease as well #8 known paroxysmal atrial fibrillation #9 multiple comorbid conditions Plan From cardiology's perspective, we will recommend to continue the patient on her current medications. She may be able to be discharged once cleared by primary and we'll make a follow-up appointment to see Dr. Torres in the office post discharge. DNP note has been reviewed, I agree with a documented findings and plan of care. Patient was seen and examined.
[2017-12-08] MEDS: SODIUM CHLORIDE 0.9% 1,000 ML IV SCH (15:50)
[2017-12-08] MEDS: RIVAROXABAN 15 MG TAB PO SCH (15:52)
--- NOTE | 2017-12-08 17:29 | PN ---
PROGRESS NOTE This is a 67-year-old pleasant female I was consulted for swelling of the right arm. The patient had a PICC line placed for IV infusion. Also patient had ultrasound, no DVT. The pulses are present by the Doppler. Radial, ulnar and brachial, bilateral. Patient has capillary refill. Temperature the same in both arms. At this point, patient is stable from a vascular point of view. The patient will be followed with you. MMODL / IJN: [id number] /
--- NOTE | 2017-12-08 20:24 | PN ---
PROGRESS NOTE DATE OF SERVICE: 12/08/2017. REASON FOR FOLLOWUP: Pneumonia, MSSA. INTERVAL HISTORY: The patient is afebrile. He seems to be breathing more comfortably. The patient denies having any chest pain. Minimal cough. No abdominal pain. No nausea, vomiting or diarrhea. EXAMINATION: Blood pressure is 111/61 with a pulse of 61, temperature 97.3. She is 98% on 5 L nasal cannula. General description is an elderly female up in the chair in no distress. Respiratory system: Unlabored breathing, clear to auscultation anteriorly. No wheeze or crackles. Heart S1, S2. Regular rate and rhythm. Abdomen soft. No tenderness. LABS: Hemoglobin is 12.8, hematocrit of 13.3 with a BUN of 41, creatinine 1.02. DIAGNOSTIC IMPRESSION AND PLAN: Patient with difficulty in breathing, multifactorial. The patient did have possible tracheobronchitis and pneumonia sputum has been MSSA shown overall clinical improvement. Currently on cefazolin, that will be transitioned to oral Keflex on discharge for another week. Continue supportive care. MMODL / IJN: [id number] /
[2017-12-09] MEDS: ceFAZolin IN SWFI 2 GM/20 ML SYRINGE IVP SCH ×3 (01:27→17:29)
[2017-12-09 05:56] LABS: Anisocytosis Slight; Basophils % (A) 0 %; Eosinophils # (A) 0.1 k/uL (0-0.7); Eosinophils % (A) 1 %; HCT 37.5 % (34.0-46.0); HGB 11.2 gm/dL (11.4-16.0); Hypochromasia Marked; Lymphocytes # (A) 1.1 k/uL (1.0-4.8); Lymphocytes % (A) 9 %; MCH 25.5 pg (25.0-35.0); MCHC 29.9 g/dL (31.0-37.0); MCV 85.1 fL (80.0-100.0); Mean Platelet Volume 7.6; Monocytes # (A) 0.5 k/uL (0-1.0); Monocytes % (A) 4 %; Neutrophils # (A) 11.3 k/uL (1.3-7.7); Neutrophils % (A) 86 %; Platelet Count 394 k/uL (150-450); RBC 4.41 m/uL (3.80-5.40); RDW 18.3 % (11.5-15.5); WBC 13.1 k/uL (3.8-10.6)
[2017-12-09 06:09] LABS: Calcium 8.7 mg/dL (8.4-10.2); Potassium 3.9 mmol/L (3.5-5.1); Total Bilirubin 0.2 mg/dL (0.2-1.3); Total Protein 5.1 g/dL (6.3-8.2)
[2017-12-09] MEDS: LEVOTHYROXINE 100 MCG TAB PO SCH (06:46)
[2017-12-09] MEDS: PANTOPRAZOLE 40 MG TABLET PO SCH (06:46)
[2017-12-09] MEDS: BUDESONIDE 0.5 MG/2 ML NEBU INHALATION SCH ×2 (07:50→19:02)
[2017-12-09] MEDS: METOPROLOL TARTRATE 50 MG TAB PO SCH (08:25)
[2017-12-09] MEDS: ATORVASTATIN 20 MG TAB PO SCH (08:25)
[2017-12-09] MEDS: CLOPIDOGREL 75 MG TAB PO SCH (08:25)
[2017-12-09] MEDS: FUROSEMIDE 40 MG TAB PO SCH (08:25)
[2017-12-09] MEDS: AMIODARONE 200 MG TAB PO SCH (08:25)
[2017-12-09] MEDS: predniSONE 10 MG TAB PO SCH (08:26)
--- NOTE | 2017-12-09 10:04 | P.PN ---
Subjective Progress Note Date: 12/09/17 HPI: This is a 67-year-old female patient who is well-known to our services being seen examined and evaluated today on rounds. This patient recently was admitted to the hospital for 2017 to 12/01/2017 for atrial fibrillation, gastroenteritis, and acute COPD exacerbation. She returned to the emergency room on 12/02/2017 with complaints of dyspnea associated with her COPD. The patient initially declined any breathing treatments at that time related to concern of exacerbating her atrial fibrillation. It was noted that the patient also had a bloody nose at night and the patient was on Plavix since oral toe. She also complained of some mild diffuse abdominal discomfort and is known to have chronic IBS and constipation. While in the emergency room the initial chest x-ray shows no changes from her previous admission. Her abdominal x-ray did show some marked stool. Also while in the emergency room the patient was noted to have a rapid decline in her respiratory status. Her oxygen saturations were in the 70s and she required an increase in her oxygen demands and ultimately on BiPAP. A new chest x-ray was obtained a few hours later which did show new bilateral central edema and infiltrates. The patient's worsening respiratory status continued she was ultimately intubated in the emergency room and admitted to the intensive care unit with atrial fibrillation , CHF, acute hypoxic respiratory failure. Currently the patient is being examined and the intensive care unit and is on mechanical ventilation with assist control mode respiratory rate of 16, tidal volume 400, FiO2 80% and a PEEP of 5. She is synchronous with the vent. She is on propofol at this time. Also leaves fed has also been started due to hypotension currently she is on 12 mild aches and is responding well. Stat lab draws were obtained of her lactic acid and it came back at 1.7, the patient's white count is normal at 6.7 , hemoglobin is 11.6, sodium 139, potassium 4.2, chloride 99, CO2 28, BUN 14, creatinine 1, magnesium 1.9. Patient's ABGs were obtained this morning and did show a pH of 7.19 pCO2 43 pO2 122 and a bicarb of 16. We will obtain a stat soil engineer all of this ABG. Fluids have been switched to KVO, blood urine and sputum cultures are also sent. Patient continues to be tachycardic cardiology is on consult and have been adjusting cardiac medications in that regard. A PICC line is requested from interventional radiology and we are currently awaiting on responsive whether that can happen at this time or not. If the IR Doctor is unable to insert a PICC line then the patient will require a central line placement. We will obtain consent for these procedures with the patient's daughter. 12/03/17- patient is being seen examined evaluated today on rounds in the intensive care unit. The patient was noted to have an increase in her troponin levels overnight. Cardiology is aware. The patient continues on an amiodarone drip at this time and her rate is better controlled. We will fed has been off since midnight last night. She continues to diuresis and is having good output with the Lasix. Her chest x-ray is reviewed and has remain unchanged she currently continues on mechanical ventilation with propofol for sedation. Current ventilator settings are assist control mode with respiratory rate of 16 , tidal volume of 400, FiO2 50% and a PEEP of 5. She is synchronous with the vent. Her labs are reviewed. Her potassium and magnesium are both being replaced today. ABGs reviewed and are within normal limits. A sedation holiday is currently being performed. The patient's ventilator settings are being adjusted to FiO2 of 40% and a PEEP of 5. We will continue to monitor to see if she tolerates these ventilator changes and if so will do a CPAP trial with weaning parameters with pressure support of 5/5. Patient did have a soapsuds enema yesterday without results. Bowel sounds remain hypoactive, patient is passing flatus. She is on tube feeds and is tolerating that well well and is at goal. Of note patient also underwent a PICC line insertion yesterday. 12/04/17-12/05/17- Please see Dr. TIANNA Hyman progress notes 12/06/17- patient is being seen examined and evaluated today on rounds. The patient did have an episode of cyanosis associated with increased respiratory distress and was placed on BiPAP and given a dose of Lasix and improved with that treatment. Chest x-ray was reviewed and does show stable borderline to mild cardiomegaly, mild interstitial densities could reflect mild CHF or bronchitis/asthma. Upon examination she is resting up in bed on 4-5 L of supplemental oxygen. She did utilize the BiPAP overnight. She does state that she does get some shortness of breath with exertion and activity and has a very low tolerance for activity. She is being evaluated currently for inpatient rehab. She currently is on oral prednisone, Lasix bronchodilators and inhaled steroids. I'll labs and reports have been reviewed. Afebrile no further complaints. 12/07/17- patient being seen examined and evaluated today on rounds. The patient is resting up in bed on 5 L of supplemental oxygen. The patient continues to have shortness of breath with exertion and activity. She is very poor reserve at times. She refused her BiPAP overnight. Infectious disease is seeing the patient for positive sputum cultures and will be transitioned to oral Vanco per ID notes. Patient could certainly benefit from rehab. 12/08/17- patient being seen examined and evaluated today on rounds. She is resting up in bed on 4-5 L of supplemental oxygen via nasal cannula. She states she is feeling slightly better today. She has been slowly improving her respiratory status. She did have a positive sputum culture with staph and is on appropriate antibiotics. Discharge planning in process to rehab facility. She is afebrile no further complaints. 12/09/17- patient is being seen examined and evaluated today on rounds. She continues to be on 4 L of supplemental oxygen via nasal cannula. Continue to wean down oxygen as tolerated. She refuses to wear the BiPAP overnight. States she does not like it. Her labs have been reviewed. Patient is being potentially discharged to [facility] in the near future. All labs and reports have been reviewed. Objective - Vital Signs Vital signs: Vital Signs Temp 97.5 F L 12/09/17 08:00 Pulse 64 12/09/17 08:00 Resp 16 12/09/17 08:00 BP 124/66 12/09/17 08:00 Pulse Ox 97 12/09/17 08:00 Intake & Output 12/08/17 12/09/17 12/09/17 18:59 06:59 18:59 Intake Total 960 540 360 Output Total 1200 150 Balance -240 390 360 Weight 78.1 kg Intake: Intake, IV Titration 40 Amount Sodium Chloride 0.9% 1, 40 000 ml @ 20 mls/hr IV . Q24H [facility] Rx#:[id number] Oral 960 500 360 Output: Urine 1200 150 Other: Voiding Method Bedside Commode Bedside Commode # Voids 1 # Bowel Movements 1 - Exam GENERAL EXAM: Alert, no acute distress HEAD: Normocephalic. EYES: Normal reaction of pupils, equal size. NOSE: Clear with pink turbinates. THROAT: No erythema or exudates. NECK: No masses, no JVD. CHEST: No chest wall deformity. LUNGS: Diminished bilaterally, some faint wheezes. Respirations even and unlabored. CVS: S1 and S2 normal with no audible mumurs, regular rhythm, tachycardic. ABDOMEN: No hepatosplenomegaly, normal bowel sounds, no guarding or rigidity. EXTREMITIES: Trace edema noted, pedal pulses palpable. CENTRAL NERVOUS SYSTEM: No focal deficits, moves all 4 extremities. - Labs CBC & Chem 7: 12/09/17 05:37 12/09/17 05:37 Labs: Abnormal Lab Results - Last 24 Hours (Table) 12/09/17 12/09/17 Range/Units 05:37 05:37 WBC 13.1 H (3.8-10.6) k/uL Hgb 11.2 L (11.4-16.0) gm/dL MCHC 29.9 L (31.0-37.0) g/dL RDW 18.3 H (11.5-15.5) % Neutrophils # 11.3 H (1.3-7.7) k/uL Carbon Dioxide 31 H (22-30) mmol/L BUN 34 H (7-17) mg/dL Glucose 109 H (74-99) mg/dL Total Protein 5.1 L (6.3-8.2) g/dL Albumin 3.0 L (3.5-5.0) g/dL Microbiology - Last 24 Hours (Table) 12/02/17 09:42 Blood Culture - Final Blood No Growth after 144 hours Assessment and Plan Assessment: Assessment SIRS 2/4 Acute on chronic hypoxic respiratory distress Atrial fibrillation and tachycardia Acute exacerbation of COPD Acute exacerbation of CHF Abdominal discomfort with marked stool noted on abdominal x-ray Hypotension Possible underlying pneumonia, suspect mixed bacterial, sputum cultures revealed staph Plan Discharge planning in process, patient can be cleared for discharge from pulmonary standpoint to ECF. Patient could benefit from rehab. Medications have been reviewed and will be continued as ordered. Sputum cultures were positive for staphylococcal aureus ID on consult.. Continue with nebulizer treatments and steroids. Continue with pulmonary hygiene, coughing and deep breathing exercises, and supportive care. Supplemental oxygen to maintain oxygen saturations of 92% or better, may utilize BiPAP at night and when necessary. Initiate and encourage incentive spirometer GI and DVT prophylaxis. Patient is currently being evaluated by physical medicine and may benefit from some inpatient therapies if appropriate. We will continue to monitor labs/results and adjust treatment as necessary. Further recommendations pending. I performed an examination of the patient and discussed their management with the nurse practitioner. I have reviewed the nurse practitioner's note and agree with the documented findings and plan of care.
--- NOTE | 2017-12-09 11:31 | P.PN ---
Subjective Progress Note Date: 12/09/17 This is a 67 -year-old female, patient of [facility]. She has a known past medical history of atrial fibrillation, congestive heart failure, COPD, CVA, trigeminal neuralgia, PA, hypothyroidism, coronary artery disease with cardiac stent, kidney cancer status post right nephrectomy and left carotid endarterectomy. Patient was just recently discharged yesterday afternoon after being hospitalized for gastroenteritis, constipation, acute kidney injury and atrial fibrillation with rapid ventricular rate. Cardiology had increased metoprolol to 50 mg 3 times a day. Patient was doing well yesterday. She was cleared by all consulting physicians. Patient was eager for discharge home. History has been obtained from chart and nursing staff. Apparently around midnight patient had worsening shortness of breath some abdominal discomfort and a bloody nose. She was brought back into the emergency room by her daughter. After evaluation in the emergency room patient was in a be discharged home. However daughter was concerned and wanted her mother to stay. ENT was consulted in regards to the nosebleed. However, during the night patient went into respiratory failure with evidence of fluid overload. Per ER report patient had a rapid decompensation in the emergency department. Was wheezy. Chest x-ray had concerns of pulmonary edema. Patient became more drowsy. And she required to be intubated. Pulmonary service consulted. Patient was admitted to the ICU. Patient is currently intubated and sedated. Last chest x-ray showing diffuse lung disease stable with bilateral infiltrate and pleural effusion. Underlying CHF or atypical interstitial pneumonia is in the differential diagnosis. Pulmonary service has ordered cefepime and Vanco. IV steroids were ordered in the emergency room. Patient also seen by cardiology in regards to her atrial fibrillation with rapid ventricular response they've placed her on IV amiodarone. Cardizem drip has been discontinued. She also is on IV Lasix for congestive heart failure. Abdominal x-ray still showing evidence of stool in the colon. And it subsided enema has been ordered. She did receive a dose of lactulose in the ER with no results. 12/03/2017 patient remains in the ICU and intubated. She is currently off of the Levophed. She'll have a sedation holiday today and possibly extubation later. She is currently on tube feedings. Chest x-ray showing stable appearance. Sputum culture growing few gram-positive cocci. She did have an increase in her troponins up to 0.209 and then 0.155. Cardiology is aware. Patient remains in A. fib heart rate is controlled. Magnesium and potassium are being replaced. Pulmonary service has adjusted vent settings. Patient received soapsuds enema yesterday with no results 12/06/2017 patient was transferred out of the ICU over the weekend. Patient did require to be placed on BiPAP with evidence of fluid overload did receive an extra dose of IV Lasix yesterday. At this time she is refusing to use the BiPAP. She's on 5 L at 100%. Sputum culture growing MSSA. Patient reports she starting to feel better. She still has some cough and shortness of breath. Denies any chest pain. Reports having a bowel movement. Denies any burning with urination. 12/07/2017 patient lying in bed comfortably. Short of breath with activity. She is not a candidate for inpatient rehab. However, she has been accepted at [facility] when medically stable. White count has increased to 15.5. Patient reports improvement in her cough and shortness of breath. She is reporting having bowel movements. Denies any burning with urination. Denies any chest pain. Denies any nausea or vomiting. She still requiring 5 L of oxygen. She did use the BiPAP for a little out through the night. And is now on 5 L satting at 94%. Patient also reported some pain in her nose and back to the night. Symptoms has improved with pain medication. 12/09/2017 patient is reporting improvement in her shortness of breath and cough. Pulmonary and cardiology had cleared her for discharge. Patient still requiring about 5 L of oxygen sat 98%. She reports having bowel movements. Denies any difficulty urinating. Denies any chest pain Objective - Vital Signs Vital signs: Vital Signs Temp 97.5 F L 12/09/17 08:00 Pulse 64 12/09/17 08:00 Resp 16 12/09/17 08:00 BP 124/66 12/09/17 08:00 Pulse Ox 97 12/09/17 08:00 Intake & Output 12/08/17 12/09/17 12/09/17 18:59 06:59 18:59 Intake Total 960 540 360 Output Total 1200 150 Balance -240 390 360 Weight 78.1 kg Intake: Intake, IV Titration 40 Amount Sodium Chloride 0.9% 1, 40 000 ml @ 20 mls/hr IV . Q24H [facility] Rx#:[id number] Oral 960 500 360 Output: Urine 1200 150 Other: Voiding Method Bedside Commode Bedside Commode Bedside Commode # Voids 1 # Bowel Movements 1 - Exam Head normocephalic Neck supple Lungs clear to auscultation bilaterally no wheezing or crackles Heart regular rate and rhythm S1-S2, no rub or gallop Abdomen is soft nontender nondistended positive bowel sounds no hepatosplenomegaly Extremities no edema of the lower extremities. Right arm swelling Neuro alert and orientated 3. Answering questions appropriately - Labs CBC & Chem 7: 12/09/17 05:37 12/09/17 05:37 Labs: Abnormal Lab Results - Last 24 Hours (Table) 12/09/17 12/09/17 Range/Units 05:37 05:37 WBC 13.1 H (3.8-10.6) k/uL Hgb 11.2 L (11.4-16.0) gm/dL MCHC 29.9 L (31.0-37.0) g/dL RDW 18.3 H (11.5-15.5) % Neutrophils # 11.3 H (1.3-7.7) k/uL Carbon Dioxide 31 H (22-30) mmol/L BUN 34 H (7-17) mg/dL Glucose 109 H (74-99) mg/dL Total Protein 5.1 L (6.3-8.2) g/dL Albumin 3.0 L (3.5-5.0) g/dL Microbiology - Last 24 Hours (Table) 12/02/17 09:42 Blood Culture - Final Blood No Growth after 144 hours Assessment and Plan Assessment: 1. Acute on chronic hypoxic respiratory failure requiring mechanical ventilation. Secondary to an acute CHF and COPD exacerbation. Patient extubated on 12/03/2017 2. Acute COPD exacerbation: Continue nebulizer treatments and oral prednisone 3. Acute diastolic congestive heart failure exacerbation: Continue Lasix 40 mg by mouth daily. BNP 9340. Echo from 11/13/2017 shows an EF of 55-60% 4. Atrial fibrillation with rapid ventricular response: Cardiology following his adjusted her amiodarone to 200 mg twice a day. Titrate amiodarone per cardiology recommendations 5. Constipation with abdominal x-ray revealing stool in the colon. Patient has had bowel movement 6. MSSA pneumonia : Infectious disease following. Continue cefazolin 7. Hypothyroidism resume Synthroid 8. Recent hospitalization with febrile illness and gastroenteritis 9. History of trigeminal neuralgia 10. 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 Patient had nosebleed present on admission. Further ENT workup to be completed outpatient. 11. History of coronary artery disease with cardiac stent 12. History of CVA 13. History of vascular dementia 14. Elevated troponins: Evaluated by cardiology 15. Hypomagnesemia and hypokalemia patient receiving supplement 16. Acute on chronic kidney disease, stage II. Resolved 17. Right arm swelling: No evidence of DVT. Evaluated by Dr. White and felt to be stable. Patient does have a PICC line in that arm GI prophylaxis Protonix and DVT prophylaxis Xarelto Anticipating discharge to [facility] possibly tomorrow I performed an examination of the patient and discussed their management with the physician Ui Developer Designer. I have reviewed the Physician Ui Developer Designer's notes and agree with the documented findings and plan of care
[2017-12-09] MEDS: ALBUTEROL NEBULIZED 2.5 MG/3 ML INHALATION PRN ×2 (11:54→19:02)
[2017-12-09] MEDS ORDERED: HYDROcodone/APAP 5-325MG 1 EACH TAB PO PRN (13:10)
--- NOTE | 2017-12-09 13:55 | PN ---
PROGRESS NOTE Mrs. Mckeon is a 67-year-old female with known history of chronic obstructive lung disease. History of paroxysmal atrial fibrillation, peripheral vascular disease, who presented with respiratory failure. She had atrial fibrillation, but converted back to sinus mechanism. Continues to be in sinus mechanism. She is feeling reasonably well. She has no symptoms of failure. She is lying supine without any difficulty. She continues to be at this time on amiodarone 200 mg twice a day, Lipitor 20 mg daily, Plavix 75 mg daily, Xarelto 15 mg daily, furosemide 40 mg daily, metoprolol tartrate 50 mg twice a day, prednisone. PHYSICAL EXAMINATION: Blood pressure 113/80 with a heart rate in the 60s. LUNGS: With decreased air exchange. No wheezes. HEART: Regular rate and rhythm, S1, S2. No S3. No rub. ABDOMEN: Soft, nontender. EXTREMITIES: No edema. LAB DATA: Revealed a hemoglobin of 11.2. BUN and creatinine 34 and 0.9, potassium 3.9. IMPRESSION: 1. Respiratory failure with exacerbation of chronic obstructive pulmonary disease, resolved. 2. Paroxysmal atrial fibrillation. 3. Peripheral vascular disease. 4. Hyperlipidemia. 5. Hypertension. RECOMMENDATION: From the cardiac standpoint, will continue on the present therapy. I will cut down the dose of her amiodarone to 200 mg once a day. I would expect she should be able to be discharged home soon and she will follow up with Dr. Bernal as an outpatient. Will see her on as-needed basis. Please feel free to call us for any question. MMODL / IJN: [id number] /
--- NOTE | 2017-12-09 15:25 | PN ---
PROGRESS NOTE DATE OF SERVICE: 12/09/2017. REASON FOR FOLLOWUP: MSSA pneumonia/tracheobronchitis. INTERVAL HISTORY: The patient is afebrile. She is breathing slightly comfortably, but denies having any chest pain. Very minimal cough. No nausea, vomiting, abdominal pain, no diarrhea. EXAMINATION: Blood pressure 113/80 with a pulse of 65, temperature of 98. She is 92% on 4 L nasal cannula. General description is an elderly female up in the bed in no distress. RESPIRATORY SYSTEM: Unlabored breathing with decreased breath sounds. No wheeze. HEART: S1, S2. Regular rate and rhythm. ABDOMEN: Soft, no tenderness. LABS: Hemoglobin 11.8, white count of 13.1 with a BUN of 34, creatinine 0.90. DIAGNOSTIC IMPRESSION AND PLAN: Patient admitted to hospital with difficulty breathing with a component of MSSA tracheobronchitis/pneumonia currently on cefazolin, which will be switched to p.o. Keflex for short course. Discontinue the PICC line. Plan of care discussed with nurse practitioner for the primary team. Continue supportive care. MMODL / IJN: [id number] /
[2017-12-09] MEDS: RIVAROXABAN 15 MG TAB PO SCH (17:29)
[2017-12-10 00:20] VITALS: RESP 16
[2017-12-10] MEDS: SODIUM CHLORIDE 0.9% 1,000 ML IV SCH ×2 (04:40→09:00)
[2017-12-10] MEDS: ceFAZolin IN SWFI 2 GM/20 ML SYRINGE IVP SCH ×2 (04:45→08:59)
[2017-12-10] MEDS: METOPROLOL TARTRATE 50 MG TAB PO SCH ×2 (04:49→08:59)
[2017-12-10] MEDS: LEVOTHYROXINE 100 MCG TAB PO SCH (06:04)
[2017-12-10] MEDS: PANTOPRAZOLE 40 MG TABLET PO SCH (06:04)
[2017-12-10 07:11] LABS: Anisocytosis Slight; Basophils % (A) 0 %; Eosinophils # (A) 0.1 k/uL (0-0.7); Eosinophils % (A) 1 %; HCT 39.4 % (34.0-46.0); HGB 12.2 gm/dL (11.4-16.0); Hypochromasia Marked; Lymphocytes # (A) 1.4 k/uL (1.0-4.8); Lymphocytes % (A) 10 %; MCH 26.7 pg (25.0-35.0); MCHC 30.9 g/dL (31.0-37.0); MCV 86.3 fL (80.0-100.0); Mean Platelet Volume 7.5; Monocytes # (A) 0.9 k/uL (0-1.0); Monocytes % (A) 6 %; Neutrophils # (A) 11.7 k/uL (1.3-7.7); Neutrophils % (A) 82 %; Platelet Count 371 k/uL (150-450); RBC 4.56 m/uL (3.80-5.40); RDW 18.3 % (11.5-15.5); WBC 14.3 k/uL (3.8-10.6)
[2017-12-10 07:26] LABS: Albumin 3.1 g/dL (3.5-5.0); Anion Gap 9 mmol/L; Calcium 8.9 mg/dL (8.4-10.2); Carbon Dioxide 35 mmol/L (22-30); Chloride 98 mmol/L (98-107); Glucose 76 mg/dL (74-99); Sodium 142 mmol/L (137-145); Total Bilirubin 0.5 mg/dL (0.2-1.3); Total Protein 5.3 g/dL (6.3-8.2)
[2017-12-10 08:00] LABS: Blood Urea Nitrogen 28 mg/dL (7-17); Potassium 4.4 mmol/L (3.5-5.1)
[2017-12-10] MEDS ORDERED: NON-FORMULARY DRUG (Tiotropium Bromide [Spiriva] 1 CAP) INHALATION SCH (08:00)
[2017-12-10 08:01] LABS: ALT 15 U/L (9-52); AST 32 U/L (14-36); Alkaline Phosphatase 86 U/L (38-126)
[2017-12-10] MEDS: BUDESONIDE 0.5 MG/2 ML NEBU INHALATION SCH (08:34)
[2017-12-10] MEDS: ATORVASTATIN 20 MG TAB PO SCH (08:59)
[2017-12-10] MEDS: CLOPIDOGREL 75 MG TAB PO SCH (08:59)
[2017-12-10] MEDS: FUROSEMIDE 40 MG TAB PO SCH (08:59)
[2017-12-10] MEDS: predniSONE 10 MG TAB PO SCH (08:59)
[2017-12-10] MEDS ORDERED: AMIODARONE 200 MG TAB PO SCH (09:00)
[2017-12-10 09:06] VITALS: TEMP 97.8
--- NOTE | 2017-12-10 10:00 | P.PN ---
Subjective Progress Note Date: 12/10/17 HPI: This is a 67-year-old female patient who is well-known to our services being seen examined and evaluated today on rounds. This patient recently was admitted to the hospital for 2017 to 12/01/2017 for atrial fibrillation, gastroenteritis, and acute COPD exacerbation. She returned to the emergency room on 12/02/2017 with complaints of dyspnea associated with her COPD. The patient initially declined any breathing treatments at that time related to concern of exacerbating her atrial fibrillation. It was noted that the patient also had a bloody nose at night and the patient was on Plavix since oral toe. She also complained of some mild diffuse abdominal discomfort and is known to have chronic IBS and constipation. While in the emergency room the initial chest x-ray shows no changes from her previous admission. Her abdominal x-ray did show some marked stool. Also while in the emergency room the patient was noted to have a rapid decline in her respiratory status. Her oxygen saturations were in the 70s and she required an increase in her oxygen demands and ultimately on BiPAP. A new chest x-ray was obtained a few hours later which did show new bilateral central edema and infiltrates. The patient's worsening respiratory status continued she was ultimately intubated in the emergency room and admitted to the intensive care unit with atrial fibrillation , CHF, acute hypoxic respiratory failure. Currently the patient is being examined and the intensive care unit and is on mechanical ventilation with assist control mode respiratory rate of 16, tidal volume 400, FiO2 80% and a PEEP of 5. She is synchronous with the vent. She is on propofol at this time. Also leaves fed has also been started due to hypotension currently she is on 12 mild aches and is responding well. Stat lab draws were obtained of her lactic acid and it came back at 1.7, the patient's white count is normal at 6.7 , hemoglobin is 11.6, sodium 139, potassium 4.2, chloride 99, CO2 28, BUN 14, creatinine 1, magnesium 1.9. Patient's ABGs were obtained this morning and did show a pH of 7.19 pCO2 43 pO2 122 and a bicarb of 16. We will obtain a stat hospital account manager all of this ABG. Fluids have been switched to KVO, blood urine and sputum cultures are also sent. Patient continues to be tachycardic cardiology is on consult and have been adjusting cardiac medications in that regard. A PICC line is requested from interventional radiology and we are currently awaiting on responsive whether that can happen at this time or not. If the IR Doctor is unable to insert a PICC line then the patient will require a central line placement. We will obtain consent for these procedures with the patient's daughter. 12/03/17- patient is being seen examined evaluated today on rounds in the intensive care unit. The patient was noted to have an increase in her troponin levels overnight. Cardiology is aware. The patient continues on an amiodarone drip at this time and her rate is better controlled. We will fed has been off since midnight last night. She continues to diuresis and is having good output with the Lasix. Her chest x-ray is reviewed and has remain unchanged she currently continues on mechanical ventilation with propofol for sedation. Current ventilator settings are assist control mode with respiratory rate of 16 , tidal volume of 400, FiO2 50% and a PEEP of 5. She is synchronous with the vent. Her labs are reviewed. Her potassium and magnesium are both being replaced today. ABGs reviewed and are within normal limits. A sedation holiday is currently being performed. The patient's ventilator settings are being adjusted to FiO2 of 40% and a PEEP of 5. We will continue to monitor to see if she tolerates these ventilator changes and if so will do a CPAP trial with weaning parameters with pressure support of 5/5. Patient did have a soapsuds enema yesterday without results. Bowel sounds remain hypoactive, patient is passing flatus. She is on tube feeds and is tolerating that well well and is at goal. Of note patient also underwent a PICC line insertion yesterday. 12/04/17-12/05/17- Please see Dr. TIANNA Hyman progress notes 12/06/17- patient is being seen examined and evaluated today on rounds. The patient did have an episode of cyanosis associated with increased respiratory distress and was placed on BiPAP and given a dose of Lasix and improved with that treatment. Chest x-ray was reviewed and does show stable borderline to mild cardiomegaly, mild interstitial densities could reflect mild CHF or bronchitis/asthma. Upon examination she is resting up in bed on 4-5 L of supplemental oxygen. She did utilize the BiPAP overnight. She does state that she does get some shortness of breath with exertion and activity and has a very low tolerance for activity. She is being evaluated currently for inpatient rehab. She currently is on oral prednisone, Lasix bronchodilators and inhaled steroids. I'll labs and reports have been reviewed. Afebrile no further complaints. 12/07/17- patient being seen examined and evaluated today on rounds. The patient is resting up in bed on 5 L of supplemental oxygen. The patient continues to have shortness of breath with exertion and activity. She is very poor reserve at times. She refused her BiPAP overnight. Infectious disease is seeing the patient for positive sputum cultures and will be transitioned to oral Vanco per ID notes. Patient could certainly benefit from rehab. 12/08/17- patient being seen examined and evaluated today on rounds. She is resting up in bed on 4-5 L of supplemental oxygen via nasal cannula. She states she is feeling slightly better today. She has been slowly improving her respiratory status. She did have a positive sputum culture with staph and is on appropriate antibiotics. Discharge planning in process to rehab facility. She is afebrile no further complaints. 12/09/17- patient is being seen examined and evaluated today on rounds. She continues to be on 4 L of supplemental oxygen via nasal cannula. Continue to wean down oxygen as tolerated. She refuses to wear the BiPAP overnight. States she does not like it. Her labs have been reviewed. Patient is being potentially discharged to ECF in the near future. All labs and reports have been reviewed. 12/10/17- patient is being seen examined and evaluated today on rounds. She is resting up in bed on 3 L of supplemental oxygen. States her breathing is getting better. She refuses to wear the BiPAP overnight. Does not like the BiPAP and would like that discontinued. Breathing treatments been helping. She is afebrile no further complaints. Possibly being discharged to ECF today. Objective - Vital Signs Vital signs: Vital Signs Temp 97.8 F 12/10/17 08:00 Pulse 63 12/10/17 08:44 Resp 16 12/10/17 04:00 BP 118/70 12/10/17 08:00 Pulse Ox 91 L 12/10/17 08:00 Intake & Output 12/09/17 12/10/17 12/10/17 18:59 06:59 18:59 Intake Total 520 360 Output Total 150 150 Balance 370 -150 360 Weight 77.8 kg Intake: IV 160 Sodium Chloride 0.9% 1, 160 000 ml @ 20 mls/hr IV . Q24H [facility] Rx#:[id number] Oral 360 360 Output: Urine 150 150 Other: Voiding Method Bedside Commode Bedside Commode # Voids 1 2 # Bowel Movements 1 - Exam GENERAL EXAM: Alert, no acute distress HEAD: Normocephalic. EYES: Normal reaction of pupils, equal size. NOSE: Clear with pink turbinates. THROAT: No erythema or exudates. NECK: No masses, no JVD. CHEST: No chest wall deformity. LUNGS: Diminished bilaterally, some faint wheezes. Aeration improved Respirations even and unlabored. CVS: S1 and S2 normal with no audible mumurs, regular rhythm, tachycardic. ABDOMEN: No hepatosplenomegaly, normal bowel sounds, no guarding or rigidity. EXTREMITIES: Trace edema noted, pedal pulses palpable. CENTRAL NERVOUS SYSTEM: No focal deficits, moves all 4 extremities. - Labs CBC & Chem 7: 12/10/17 06:48 12/10/17 06:48 Labs: Abnormal Lab Results - Last 24 Hours (Table) 12/10/17 12/10/17 Range/Units 06:48 06:48 WBC 14.3 H (3.8-10.6) k/uL MCHC 30.9 L (31.0-37.0) g/dL RDW 18.3 H (11.5-15.5) % Neutrophils # 11.7 H (1.3-7.7) k/uL Carbon Dioxide 35 H (22-30) mmol/L BUN 28 H (7-17) mg/dL Total Protein 5.3 L (6.3-8.2) g/dL Albumin 3.1 L (3.5-5.0) g/dL Assessment and Plan Assessment: Assessment SIRS 2/4 Acute on chronic hypoxic respiratory distress Atrial fibrillation and tachycardia Acute exacerbation of COPD Acute exacerbation of CHF Abdominal discomfort with marked stool noted on abdominal x-ray Hypotension Possible underlying pneumonia, suspect mixed bacterial, sputum cultures revealed staph Plan Discharge planning in process, patient can be cleared for discharge from pulmonary standpoint to ECF. Patient could benefit from rehab. Medications have been reviewed and will be continued as ordered. Sputum cultures were positive for staphylococcal aureus ID on consult.. Continue with nebulizer treatments and steroids. Continue with pulmonary hygiene, coughing and deep breathing exercises, and supportive care. Supplemental oxygen to maintain oxygen saturations of 92% or better, Initiate and encourage incentive spirometer GI and DVT prophylaxis. Patient is currently being evaluated by physical medicine and may benefit from some inpatient therapies if appropriate. We will continue to monitor labs/results and adjust treatment as necessary. Further recommendations pending. I performed an examination of the patient and discussed their management with the nurse practitioner. I have reviewed the nurse practitioner's note and agree with the documented findings and plan of care.
[2017-12-10 10:55] VITALS: BMI 29.4
--- NOTE | 2017-12-10 13:52 | P.DS ---
Providers Date of admission: 12/02/17 04:22 Attending physician: Abelardo Kelly Consults: 12/02/17 04:22 Consult Physician Routine Consulting Provider: Glenroy Larsen Consult Reason/Comments: a fib, chf Do you want consulting provider notified?: Yes 12/02/17 08:17 Consult Physician ONCE Consulting Provider: Delgado Rodriguez Consult Reason/Comments: COPD, intubated, ICU patient Do you want consulting provider notified?: Yes 12/03/17 15:40 Consult Physician Routine Consulting Provider: Mackenzie Schrader Consult Reason/Comments: postivie sputum cultures Do you want consulting provider notified?: Yes 12/04/17 14:40 Consult Physician Routine Consulting Provider: Keenan Gonzalez Consult Reason/Comments: medical debility Do you want consulting provider notified?: Yes 12/06/17 08:48 Consult Physician Routine Consulting Provider: Juan Carlos Gary Consult Reason/Comments: Nasopharangeal mass Do you want consulting provider notified?: Yes 12/07/17 14:08 Consult Physician Routine Consulting Provider: Andreas White Consult Reason/Comments: right arm swelling Do you want consulting provider notified?: Yes Primary care physician: Lolita Fraga Hospital Course: Discharge diagnosis 1. Acute on chronic hypoxic respiratory failure requiring mechanical ventilation. Secondary to an acute CHF and COPD exacerbation. Patient extubated on 12/03/2017 2. Acute COPD exacerbation: Continue nebulizer treatments and oral prednisone 3. Acute diastolic congestive heart failure exacerbation: Continue Lasix 40 mg by mouth daily. BNP 9340. Echo from 11/13/2017 shows an EF of 55-60% 4. Atrial fibrillation with rapid ventricular response: Cardiology following his adjusted her amiodarone to 200 mg twice a day. Titrate amiodarone per cardiology recommendations 5. Constipation with abdominal x-ray revealing stool in the colon. Patient has had bowel movement 6. MSSA pneumonia : Infectious disease following. Continue cefazolin 7. Hypothyroidism resume Synthroid 8. Recent hospitalization with febrile illness and gastroenteritis 9. History of trigeminal neuralgia 10. 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 Patient had nosebleed present on admission. Further ENT workup to be completed outpatient. 11. History of coronary artery disease with cardiac stent 12. History of CVA 13. History of vascular dementia 14. Elevated troponins: Evaluated by cardiology 15. Hypomagnesemia and hypokalemia patient receiving supplement 16. Acute on chronic kidney disease, stage II. Resolved 17. Right arm swelling: No evidence of DVT. Evaluated by Dr. White and felt to be stable. Patient does have a PICC line in that arm 18. Oral thrush started on nystatin swish and swallow 19. Leukocytosis likely related to patient still being on prednisone. Also could be related to the oral thrush. Discussed with infectious disease. We'll repeat a CBC in 1 week Hospital course This is a 67 -year-old female, patient of [facility]. She has a known past medical history of atrial fibrillation, congestive heart failure, COPD, CVA, trigeminal neuralgia, AL, hypothyroidism, coronary artery disease with cardiac stent, kidney cancer status post right nephrectomy and left carotid endarterectomy. Patient was just recently discharged yesterday afternoon after being hospitalized for gastroenteritis, constipation, acute kidney injury and atrial fibrillation with rapid ventricular rate. Cardiology had increased metoprolol to 50 mg 3 times a day. Patient was doing well yesterday. She was cleared by all consulting physicians. Patient was eager for discharge home. History has been obtained from chart and nursing staff. Apparently around midnight patient had worsening shortness of breath some abdominal discomfort and a bloody nose. She was brought back into the emergency room by her daughter. After evaluation in the emergency room patient was in a be discharged home. However daughter was concerned and wanted her mother to stay. ENT was consulted in regards to the nosebleed. However, during the night patient went into respiratory failure with evidence of fluid overload. Per ER report patient had a rapid decompensation in the emergency department. Was wheezy. Chest x-ray had concerns of pulmonary edema. Patient became more drowsy. And she required to be intubated. Pulmonary service consulted. Patient was admitted to the ICU. Patient is currently intubated and sedated. Last chest x-ray showing diffuse lung disease stable with bilateral infiltrate and pleural effusion. Underlying CHF or atypical interstitial pneumonia is in the differential diagnosis. Pulmonary service has ordered cefepime and Vanco. IV steroids were ordered in the emergency room. Patient also seen by cardiology in regards to her atrial fibrillation with rapid ventricular response they've placed her on IV amiodarone. Cardizem drip has been discontinued. She also is on IV Lasix for congestive heart failure. Abdominal x-ray still showing evidence of stool in the colon. And it subsided enema has been ordered. She did receive a dose of lactulose in the ER with no results. 12/03/2017 patient remains in the ICU and intubated. She is currently off of the Levophed. She'll have a sedation holiday today and possibly extubation later. She is currently on tube feedings. Chest x-ray showing stable appearance. Sputum culture growing few gram-positive cocci. She did have an increase in her troponins up to 0.209 and then 0.155. Cardiology is aware. Patient remains in A. fib heart rate is controlled. Magnesium and potassium are being replaced. Pulmonary service has adjusted vent settings. Patient received soapsuds enema yesterday with no results 12/06/2017 patient was transferred out of the ICU over the weekend. Patient did require to be placed on BiPAP with evidence of fluid overload did receive an extra dose of IV Lasix yesterday. At this time she is refusing to use the BiPAP. She's on 5 L at 100%. Sputum culture growing MSSA. Patient reports she starting to feel better. She still has some cough and shortness of breath. Denies any chest pain. Reports having a bowel movement. Denies any burning with urination. 12/07/2017 patient lying in bed comfortably. Short of breath with activity. She is not a candidate for inpatient rehab. However, she has been accepted at [facility] when medically stable. White count has increased to 15.5. Patient reports improvement in her cough and shortness of breath. She is reporting having bowel movements. Denies any burning with urination. Denies any chest pain. Denies any nausea or vomiting. She still requiring 5 L of oxygen. She did use the BiPAP for a little out through the night. And is now on 5 L satting at 94%. Patient also reported some pain in her nose and back to the night. Symptoms has improved with pain medication. 12/09/2017 patient is reporting improvement in her shortness of breath and cough. Pulmonary and cardiology had cleared her for discharge. Patient still requiring about 5 L of oxygen sat 98%. She reports having bowel movements. Denies any difficulty urinating. Patient has been cleared by all physicians discharge. He is recommending Kefzol for 7 more days for the MSSA in her sputum. Pulmonary service has also cleared patient for discharge and she will follow-up with him in the office. Cardiology has decreased amiodarone 2 daily. Metoprolol has also been adjusted from 50 mg 3 times a day to 50 mg twice a day. Patient is tolerating this well. Patient is medically stable for discharge. She'll be discharged to [facility] for further rehabilitation. Please refer to chart for any further details I performed an examination of the patient and discussed their management with the physician Job Placement Counselor. I have reviewed the Physician Job Placement Counselor's notes and agree with the documented findings and plan of care Patient Condition at Discharge: Stable Plan - Discharge Summary Discharge Rx Participant: Yes New Discharge Prescriptions: New Amiodarone [Cordarone] 200 mg PO DAILY tab Cephalexin [Keflex] 500 mg PO Q8HR #21 cap HYDROcodone/APAP 5-325MG [Coleman 5-325] 1 each PO Q4HR PRN #24 tab PRN Reason: Moderate Pain Metoprolol Tartrate [Lopressor] 50 mg PO BID tab Nystatin 100,000 Unit/ml Susp [Mycostatin Oral Susp] 5 ml PO QID 7 Days #140 ml predniSONE 10 mg PO DIRECTED tab Continue PARoxetine HCL 30 mg PO HS OXcarbazepine [Trileptal] 150 mg PO HS Melatonin 3 mg PO HS Potassium Chloride [Klor-Con 10] 10 meq PO DAILY Pantoprazole Sodium [Protonix] 40 mg PO DAILY Montelukast [Singulair] 10 mg PO HS Magnesium Oxide [Mag-Ox] 400 mg PO DAILY Lurasidone HCl [Latuda] 20 mg PO DAILY Levothyroxine Sodium [Synthroid] 100 mcg PO DAILY Furosemide [Lasix] 40 mg PO DAILY Ferrous Sulfate [Iron (65 MG Elemental)] 325 mg PO DAILY Clopidogrel Bisulfate [Plavix] 75 mg PO DAILY Calcium Polycarbophil [Fibercon] 1,250 mg PO DAILY Atorvastatin Calcium [Lipitor] 20 mg PO DAILY Fluticasone/Vilanterol [Breo Ellipta 100-25 Mcg Inhaler] 1 puff INHALATION RT -DAILY Tiotropium Weaver [Spiriva] 1 cap INHALATION RT-DAILY Rivaroxaban [Xarelto] 15 mg PO W/SUPPER #30 tab Multivitamins, Thera [Multivitamin (formulary)] 1 each PO DAILY@1200 #30 tab Albuterol Nebulized [Ventolin Nebulized] 2.5 mg INHALATION RT-QID nebu Docusate [Colace] 100 mg PO BID cap Nitroglycerin Sl Tabs [Nitrostat] 0.4 mg SUBLINGUAL Q5M PRN tab PRN Reason: Chest Pain Polyethylene Glycol 3350 [Miralax] 17 gm PO HS powd.pack Discontinued Metoprolol Tartrate [Lopressor] 50 mg PO TID tab Discharge Medication List PARoxetine HCL 30 mg PO HS 07/02/14 [History] OXcarbazepine [Trileptal] 150 mg PO HS 11/04/14 [History] Melatonin 3 mg PO HS 03/05/16 [History] Atorvastatin Calcium [Lipitor] 20 mg PO DAILY 06/13/17 [History] Calcium Polycarbophil [Fibercon] 1,250 mg PO DAILY 06/13/17 [History] Clopidogrel Bisulfate [Plavix] 75 mg PO DAILY 06/13/17 [History] Ferrous Sulfate [Iron (65 MG Elemental)] 325 mg PO DAILY 06/13/17 [History] Furosemide [Lasix] 40 mg PO DAILY 06/13/17 [History] Levothyroxine Sodium [Synthroid] 100 mcg PO DAILY 06/13/17 [History] Lurasidone HCl [Latuda] 20 mg PO DAILY 06/13/17 [History] Magnesium Oxide [Mag-Ox] 400 mg PO DAILY 06/13/17 [History] Montelukast [Singulair] 10 mg PO HS 06/13/17 [History] Pantoprazole Sodium [Protonix] 40 mg PO DAILY 06/13/17 [History] Potassium Chloride [Klor-Con 10] 10 meq PO DAILY 06/13/17 [History] Fluticasone/Vilanterol [Breo Ellipta 100-25 Mcg Inhaler] 1 puff INHALATION RT- DAILY 06/14/17 [History] Tiotropium Weaver [Spiriva] 1 cap INHALATION RT-DAILY 06/14/17 [History] Rivaroxaban [Xarelto] 15 mg PO W/SUPPER #30 tab 06/16/17 [Rx] Multivitamins, Thera [Multivitamin (formulary)] 1 each PO DAILY@1200 #30 tab [Rx] Albuterol Nebulized [Ventolin Nebulized] 2.5 mg INHALATION RT-QID nebu [Rx] Docusate [Colace] 100 mg PO BID cap 12/01/17 [Rx] Nitroglycerin Sl Tabs [Nitrostat] 0.4 mg SUBLINGUAL Q5M PRN tab 12/01/17 [Rx] Polyethylene Glycol 3350 [Miralax] 17 gm PO HS powd.pack 12/01/17 [Rx] Amiodarone [Cordarone] 200 mg PO DAILY tab 12/10/17 [Rx] Cephalexin [Keflex] 500 mg PO Q8HR #21 cap 12/10/17 [Rx] HYDROcodone/APAP 5-325MG [Coleman 5-325] 1 each PO Q4HR PRN #24 tab 12/10/17 [Rx] Metoprolol Tartrate [Lopressor] 50 mg PO BID tab 12/10/17 [Rx] Nystatin 100,000 Unit/ml Susp [Mycostatin Oral Susp] 5 ml PO QID 7 Days #140 ml 12/10/17 [Rx] predniSONE 10 mg PO DIRECTED tab 12/10/17 [Rx] Follow up Appointment(s)/Referral(s): Florinda Hutchinson DO [Doctor of Osteopathic Medicine] - 1-2 Days Lolita Fraga DO [Primary Care Provider] - 1 Week Connor Bernal MD [STAFF PHYSICIAN] - 1 Week Ambulatory/Diagnostic Orders: Complete Blood Count w/diff [LAB.AMB] Time Frame: 1 Week, Location: Determined By Patient Activity/Diet/Wound Care/Special Instructions: Diet: cardiac Activity: as tolerated Ok to discharge to [facility]. Dr. Tamayo to follow at [facility] Discharge Disposition: TRANSFER TO SNF/ECF
[2017-12-10 14:33] VITALS: BP 115/61; PULSE 65
--- NOTE | 2017-12-10 14:38 | PN ---
PROGRESS NOTE DATE OF SERVICE: 12/10/2017. REASON FOR FOLLOWUP: MSSA tracheobronchitis/early pneumonia. INTERVAL HISTORY: The patient is afebrile. She has been breathing more comfortably. Denies having any chest pain. Minimal cough. No nausea. No abdominal pain. No diarrhea. EXAMINATION: Blood pressure 114/72 with a pulse of 69, temperature of 97.8. She is 92% on 2 L nasal cannula. General description is an elderly female up in the chair in no distress. RESPIRATORY SYSTEM: Unlabored breathing with decreased breath sounds in the base, with no wheeze. HEART: S1, S2. Regular rate and rhythm. ABDOMEN: Soft, no tenderness. LABS: Hemoglobin is 12.2, white count of 14.3 with a BUN of 28, creatinine 0.79. Blood culture negative. Sputum has been MSSA. DIAGNOSTIC IMPRESSION AND PLAN: Patient admitted to the hospital with difficulty in breathing, which is likely multifactorial in this patient with likely MSSA tracheobronchitis/pneumonia. Plan to finish a short course of oral Keflex. She did have mildly elevated white count with a possible oral thrush. Recommend nystatin swish and swallow and short course of oral Diflucan. Plan of care discussed with the nurse practitioner for the primary team. MMODL / IJN: [id number] /
[2017-12-10] MEDS ORDERED: NON-FORMULARY DRUG (Fluticasone/Vilanterol [Breo Ellipta 100-25 Mcg Inhaler] 1 PUFF) INHALATION SCH (20:00)
--- NOTE | 2017-12-14 13:01 | CDI ---
Documentation Clarification Form Date: 12/14/2017 12:00:00 AM From: DUSTIN Farris; Mayela Brooks Radiocommunications Technician Phone: If you have a question about this query, please contact Mayela Brooks Radiocommunications Technician at [phone] between 8am and 5pm. Admit Date: 12/02/2017 4:22:00 AM Patient Name: Kathy Mckeon Visit Number: [id number] Discharge Date: 12/10/2017 ATTENTION: The Clinical Documentation Specialists (CDI) and [facility] Coding Staff appreciate your assistance in clarifying documentation. Please respond to the clarification below the line at the bottom and electronically sign. The CDI & [facility] Coding staff will review the response and follow-up if needed. Please note: Queries are made part of the Legal Health Record. If you have any questions, please contact the author of this message via ITS. Dr. Abelardo Kelly Shock is documented in consultation dated 12/02. Patient history/risk factors: Acute respiratory failure on admission, exacerbation of CHF and pneumonia. Vitals: 97.9, 122 heart rate 103/63 BP Treatment: Levophed In your professional opinion, can you please specify the type of shock if known ? Septic Shock Cardiogenic Shock Hypovolemic Shock Other, please specify Unable to determine Septic shock MTDD
== END 2017-12-10 16:09 | DRG 871 ==
LOC: EC 00:40 → 6SEL 04:22 → 6ICU 05:59 → 6SEL 12-03 21:59
PROVIDERS: ADMIT Internal Medicine; ATTEND Internal Medicine
PROC: 0BH18EZ Insertion of Endotracheal Airway into Trachea, Via Natural or Artificial Opening Endoscopic (ICD-10-PCS; principal; 2017-12-02 10:58)
PROC: 5A1935Z Respiratory Ventilation, Less than 24 Consecutive Hours (ICD-10-PCS; principal; 2017-12-02 10:58)
PROC: 02HV33Z Insertion of Infusion Device into Superior Vena Cava, Percutaneous Approach (ICD-10-PCS; 2017-12-02 10:58)
DX: A41.9 Sepsis, unspecified organism (principal); G93.41 Metabolic encephalopathy; J96.21 Acute and chronic respiratory failure with hypoxia; J69.0 Pneumonitis due to inhalation of food and vomit; R65.21 Severe sepsis with septic shock; I50.43 Acute on chronic combined systolic (congestive) and diastolic (congestive) heart failure; J15.211 Pneumonia due to Methicillin susceptible Staphylococcus aureus; B37.0 Candidal stomatitis; I13.0 Hypertensive heart and chronic kidney disease with heart failure and stage 1 through stage 4 chronic kidney disease, or unspecified chronic kidney disease; J44.0 Chronic obstructive pulmonary disease with (acute) lower respiratory infection; J44.1 Chronic obstructive pulmonary disease with (acute) exacerbation; I48.0 Paroxysmal atrial fibrillation; E83.42 Hypomagnesemia; E03.9 Hypothyroidism, unspecified; G25.81 Restless legs syndrome; E78.5 Hyperlipidemia, unspecified; F01.50 Vascular dementia, unspecified severity, without behavioral disturbance, psychotic disturbance, mood disturbance, and anxiety; B95.61 Methicillin susceptible Staphylococcus aureus infection as the cause of diseases classified elsewhere; E87.6 Hypokalemia; G47.33 Obstructive sleep apnea (adult) (pediatric); I25.10 Atherosclerotic heart disease of native coronary artery without angina pectoris; I25.2 Old myocardial infarction; I73.9 Peripheral vascular disease, unspecified; K21.9 Gastro-esophageal reflux disease without esophagitis; K58.1 Irritable bowel syndrome with constipation; M19.90 Unspecified osteoarthritis, unspecified site; N18.2 Chronic kidney disease, stage 2 (mild); R04.0 Epistaxis; Z79.01 Long term (current) use of anticoagulants; Z79.02 Long term (current) use of antithrombotics/antiplatelets; Z79.899 Other long term (current) drug therapy; Z82.49 Family history of ischemic heart disease and other diseases of the circulatory system; Z82.5 Family history of asthma and other chronic lower respiratory diseases; Z85.528 Personal history of other malignant neoplasm of kidney; Z86.73 Personal history of transient ischemic attack (TIA), and cerebral infarction without residual deficits; Z87.891 Personal history of nicotine dependence; Z88.0 Allergy status to penicillin; Z90.5 Acquired absence of kidney; Z90.710 Acquired absence of both cervix and uterus; Z95.5 Presence of coronary angioplasty implant and graft
CPT/HCPCS: 36415; 36569; 36600; 71045; 71046; 74018; 76937; 80048; 80053; 80202; 81003; 82550; 82553; 82805; 83036; 83050; 83605; 83735; 83880; 84100; 84132; 84439; 84443; 84481; 84484; 85025; 85610; 85730; 87040; 87070; 87077; 87086; 87186; 87205; 93005; 94002; 94003; 94640; 94660; 94760; 96365; 96366; 96375; 99285

== ENCOUNTER 2017-12-16 00:08 | Inpatient (IN) | payer MEDICARE, OTHER ==
[2017-12-16] MEDS ORDERED: MORPHINE SULFATE 4 MG/0.8 ML SYRINGE (INJ) IVP STA (01:20)
[2017-12-16 02:10] LABS: Anisocytosis Slight; Basophils % (A) 0 %; Eosinophils % (A) 0 %; HCT 37.3 % (34.0-46.0); HGB 11.3 gm/dL (11.4-16.0); Hypochromasia Moderate; Lymphocytes # (A) 1.4 k/uL (1.0-4.8); Lymphocytes % (A) 13 %; MCH 25.7 pg (25.0-35.0); MCHC 30.3 g/dL (31.0-37.0); MCV 84.6 fL (80.0-100.0); Mean Platelet Volume 7.4; Monocytes # (A) 0.7 k/uL (0-1.0); Monocytes % (A) 6 %; Neutrophils # (A) 8.9 k/uL (1.3-7.7); Neutrophils % (A) 80 %; Platelet Count 283 k/uL (150-450); RBC 4.41 m/uL (3.80-5.40); RDW 18.8 % (11.5-15.5); WBC 11.1 k/uL (3.8-10.6)
--- NOTE | 2017-12-16 02:11 | ED ---
General Adult HPI - General Chief complaint: ENT Stated complaint: recheck nose bleed Time Seen by Provider: 12/16/17 00:23 Source: EMS Mode of arrival: EMS Limitations: no limitations - History of Present Illness Initial comments: 67 year-old female patient presents to the emergency department today for evaluation after experiencing a nosebleed the last approximately one hour this evening. Nosebleed started around 2245. Patient has an extensive past medical history. Daughter reports the patient has some cognitive difficulties and is a poor historian. Daughter is concerned due to patient having increased swelling to her bilateral lower extremities as well as a low heart rate and elevated blood pressure. Daughter reports the patient has an extensive past medical history has currently been having issues with congestive heart failure and atrial fibrillation. She was started on a new rate controller medication which has been causing her heart rate to be in the 50s. Daughter reports that she is short of breath with activity. Patient has also been having an increase in her chronic low back pain, abdominal pain, and left eye pain. Daughter does not believe that her pain medications are lasting long enough. Her daughter is also concerned that she is not being monitored closely enough at the custodial facility and believes that she needs hospital monitoring. Patient denies any recent rash, fever, chills, chest pain, nausea, vomiting, diarrhea, constipation, numbness, tingling, dizziness, hematuria, dysuria, urinary urgency , urinary frequency, headache, visual changes, or any other complaints. - Related Data Home Medications Medication Instructions Recorded Confirmed PARoxetine HCL 30 mg PO HS 07/02/14 12/16/17 OXcarbazepine [Trileptal] 150 mg PO HS 11/04/14 12/16/17 Melatonin 3 mg PO HS 03/05/16 12/16/17 Atorvastatin Calcium [Lipitor] 20 mg PO DAILY 06/13/17 12/16/17 Calcium Polycarbophil [Fibercon] 1,250 mg PO DAILY 06/13/17 12/16/17 Clopidogrel Bisulfate [Plavix] 75 mg PO DAILY 06/13/17 12/16/17 Ferrous Sulfate [Iron (65 MG 325 mg PO DAILY 06/13/17 12/16/17 Elemental)] Furosemide [Lasix] 40 mg PO DAILY 06/13/17 12/16/17 Levothyroxine Sodium [Synthroid] 100 mcg PO DAILY 06/13/17 12/16/17 Lurasidone HCl [Latuda] 20 mg PO DAILY 06/13/17 12/16/17 Magnesium Oxide [Mag-Ox] 400 mg PO DAILY 06/13/17 12/16/17 Montelukast [Singulair] 10 mg PO HS 06/13/17 12/16/17 Pantoprazole Sodium [Protonix] 40 mg PO DAILY 06/13/17 12/16/17 Potassium Chloride [Klor-Con 10] 10 meq PO DAILY 06/13/17 12/16/17 Fluticasone/Vilanterol [Breo 1 puff INHALATION RT-DAILY 06/14/17 12/16/17 Ellipta 100-25 Mcg Inhaler] Tiotropium Cygnet [Spiriva] 1 cap INHALATION RT-DAILY 06/14/17 12/16/17 Previous Rx's Medication Instructions Recorded Rivaroxaban [Xarelto] 15 mg PO W/SUPPER #30 tab 06/16/17 Multivitamins, Thera [Multivitamin 1 each PO DAILY@1200 #30 tab 11/15/17 (formulary)] Albuterol Nebulized [Ventolin 2.5 mg INHALATION RT-QID nebu 12/01/17 Nebulized] Docusate [Colace] 100 mg PO BID cap 12/01/17 Nitroglycerin Sl Tabs [Nitrostat] 0.4 mg SUBLINGUAL Q5M PRN tab 12/01/17 Polyethylene Glycol 3350 [Miralax] 17 gm PO HS powd.pack 12/01/17 Amiodarone [Cordarone] 200 mg PO DAILY tab 12/10/17 Cephalexin [Keflex] 500 mg PO Q8HR #21 cap 12/10/17 HYDROcodone/APAP 5-325MG [Linch 1 each PO Q4HR PRN #24 tab 12/10/17 5-325] Metoprolol Tartrate [Lopressor] 50 mg PO BID tab 12/10/17 Nystatin 100,000 Unit/ml Susp 5 ml PO QID 7 Days #140 ml 12/10/17 [Mycostatin Oral Susp] predniSONE 10 mg PO DIRECTED tab 12/10/17 Allergies Allergy/AdvReac Type Severity Reaction Status Date / Time albuterol Allergy Rash/Hives Verified 12/05/17 13:18 latex Allergy Rash/Hives Verified 11/24/17 20:05 Penicillins Allergy Unknown Verified 11/24/17 20:05 Childhood Review of Systems ROS Statement: Those systems with pertinent positive or pertinent negative responses have been documented in the HPI. ROS Other: All systems not noted in ROS Statement are negative. Past Medical History Past Medical History: Atrial Fibrillation, Asthma, Coronary Artery Disease (CAD) , Cancer, COPD, CVA/TIA, Eye Disorder, GERD/Reflux, Hyperlipidemia, Hypertension , Memory Impairment, Myocardial Infarction ([place]), Osteoarthritis (OA), Respiratory Disorder, Sleep Apnea/CPAP/BIPAP, Thyroid Disorder, Vascular Disorder Additional Past Medical History / Comment(s): Pt recently admitted to [facility] on 11/25/17 febrile, recent UTI, hypotensive. 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 Last Myocardial Infarction Date:: 11/03/14 History of Any Multi-Drug Resistant Organisms: None Reported Date of last positivie culture/infection: None Past Surgical History: Adenoidectomy, Bladder Surgery, Cholecystectomy, Ear Surgery, Heart Catheterization With Stent, Hysterectomy, Orthopedic Surgery, Tonsillectomy Additional Past Surgical History / Comment(s): 11/28/14 PTCA with stents, left CAROTID ENDARTERECTOMY, MULTIPLE BILATERAL STENTS IN LOWER EXTREMITIES, R elbow surgery as a child, R ear surgery for blockage, bilateral ankle arthroscopies, bilateral knee arthroscopies, deviated septal surgery, L great toe pinned, colonoscopies/benign polypectomy, R nephrectomy and partial bladder removal, skin lesion from nose. Past Anesthesia/Blood Transfusion Reactions: Motion Sickness Date of Last Stent Placement:: 10/2014 Past Psychological History: Bipolar Smoking Status: Former smoker - Past Family History Mother Family Medical History: COPD Additional Family Medical History / Comment(s): Mother is . She from respiratory failure. Father Family Medical History: Coronary Artery Disease (CAD), Myocardial Infarction ([place] ) Additional Family Medical History / Comment(s): Father had gout General Exam Limitations: no limitations General appearance: alert, in no apparent distress, other (This is a well- developed, obese female patient in no acute distress. Vital signs upon presentation are temperature 97.8F, pulse 54, respirations 20, blood pressure 153/83, pulse ox 95% on 3 L nasal cannula) Eye exam: Present: normal appearance, PERRL, EOMI. Absent: scleral icterus, conjunctival injection, periorbital swelling ENT exam: Present: normal exam, normal oropharynx, mucous membranes moist, other (Patient has a dried blood noted to the right nare. No current bleeding noted.) Respiratory exam: Present: normal lung sounds bilaterally. Absent: respiratory distress, wheezes, rales, rhonchi, stridor Cardiovascular Exam: Present: normal rhythm, bradycardia, normal heart sounds. Absent: systolic murmur, diastolic murmur, rubs, gallop, clicks GI/Abdominal exam: Present: soft, normal bowel sounds. Absent: distended, tenderness, guarding, rebound, rigid Neurological exam: Present: alert, CN II-XII intact. Absent: oriented X3 ( Oriented 2) Psychiatric exam: Present: normal affect, normal mood Skin exam: Present: warm, dry, intact, normal color. Absent: rash Course Vital Signs 12/16/17 12/16/17 00:12 02:30 Temperature 97.8 F Pulse Rate 54 L 65 Respiratory 20 20 Rate Blood Pressure 153/83 146/82 O2 Sat by Pulse 95 95 Oximetry Medical Decision Making - Medical Decision Making 67 year-old female patient presented to the emergency department today for evaluation of nosebleed. Daughter was present and race concerns regarding increased swelling to her legs and increased shortness of breath with activity. Physical examination was relatively unremarkable other than 2+ pitting edema to the bilateral lower extremities. Labs reviewed and did reveal an elevated white blood cell count at 11.1, elevated BNP at 16,000. Chest x-ray showed no evidence of CHF however did reveal evidence of a right upper lobe infiltrate new compared to last exam. We will admit patient at this time for diuresis and IV antibiotics. We will cover for possible pseudomonas as patient was recently admitted. She'll be admitted to Dr. Kelly. - Lab Data Result diagrams: 12/16/17 02:00 04/26/18 02:00 Lab Results 12/16/17 12/16/17 12/16/17 Range/Units 02:00 02:00 02:00 WBC 11.1 H (3.8-10.6) k/uL RBC 4.41 (3.80-5.40) m/uL Hgb 11.3 L (11.4-16.0) gm/dL Hct 37.3 (34.0-46.0) % MCV 84.6 (80.0-100.0) fL MCH 25.7 (25.0-35.0) pg MCHC 30.3 L (31.0-37.0) g/dL RDW 18.8 H (11.5-15.5) % Plt Count 283 (150-450) k/uL Neutrophils % 80 % Lymphocytes % 13 % Monocytes % 6 % Eosinophils % 0 % Basophils % 0 % Neutrophils # 8.9 H (1.3-7.7) k/uL Lymphocytes # 1.4 (1.0-4.8) k/uL Monocytes # 0.7 (0-1.0) k/uL Eosinophils # 0.0 (0-0.7) k/uL Basophils # 0.0 (0-0.2) k/uL Hypochromasia Moderate Anisocytosis Slight PT (9.0-12.0) sec INR (<1.2) APTT (22.0-30.0) sec Sodium 139 (137-145) mmol/L Potassium 4.4 (3.5-5.1) mmol/L Chloride 98 (98-107) mmol/L Carbon Dioxide 29 (22-30) mmol/L Anion Gap 12 mmol/L BUN 24 H (7-17) mg/dL Creatinine 1.00 (0.52-1.04) mg/dL Est GFR (CKD-EPI)AfAm 68 (>60 ml/min/1.73 sqM) Est GFR (CKD-EPI)NonAf 59 (>60 ml/min/1.73 sqM) Glucose 77 (74-99) mg/dL Calcium 9.2 (8.4-10.2) mg/dL Total Bilirubin 0.6 (0.2-1.3) mg/dL AST 36 (14-36) U/L ALT 42 (9-52) U/L Alkaline Phosphatase 81 (38-126) U/L NT-Pro-B Natriuret Pep 37873 pg/mL Total Protein 5.3 L (6.3-8.2) g/dL Albumin 3.4 L (3.5-5.0) g/dL 12/16/17 Range/Units 02:00 WBC (3.8-10.6) k/uL RBC (3.80-5.40) m/uL Hgb (11.4-16.0) gm/dL Hct (34.0-46.0) % MCV (80.0-100.0) fL MCH (25.0-35.0) pg MCHC (31.0-37.0) g/dL RDW (11.5-15.5) % Plt Count (150-450) k/uL Neutrophils % % Lymphocytes % % Monocytes % % Eosinophils % % Basophils % % Neutrophils # (1.3-7.7) k/uL Lymphocytes # (1.0-4.8) k/uL Monocytes # (0-1.0) k/uL Eosinophils # (0-0.7) k/uL Basophils # (0-0.2) k/uL Hypochromasia Anisocytosis PT 13.2 H (9.0-12.0) sec INR 1.4 H (<1.2) APTT 25.4 (22.0-30.0) sec Sodium (137-145) mmol/L Potassium (3.5-5.1) mmol/L Chloride (98-107) mmol/L Carbon Dioxide (22-30) mmol/L Anion Gap mmol/L BUN (7-17) mg/dL Creatinine (0.52-1.04) mg/dL Est GFR (CKD-EPI)AfAm (>60 ml/min/1.73 sqM) Est GFR (CKD-EPI)NonAf (>60 ml/min/1.73 sqM) Glucose (74-99) mg/dL Calcium (8.4-10.2) mg/dL Total Bilirubin (0.2-1.3) mg/dL AST (14-36) U/L ALT (9-52) U/L Alkaline Phosphatase (38-126) U/L NT-Pro-B Natriuret Pep pg/mL Total Protein (6.3-8.2) g/dL Albumin (3.5-5.0) g/dL - Radiology Data Radiology results: report reviewed, image reviewed Two-view x-ray of the chest shows scattered small calcified granuloma moderate in the lungs. Mild infiltrate in the right upper lobe. No heart failure. Thoracic aorta is atheromatous. Costophrenic angles are clear. Bony thorax is intact. Impression by Dr. Lee shows new right upper lobe infiltrate compared to last exam. No heart failure. Mild pulmonary fibrosis. Disposition Clinical Impression: CHF (congestive heart failure), Pneumonia Disposition: ADMITTED IP TO THIS HOSP Condition: Serious Referrals: Lolita Fraga DO [Primary Care Provider] - 1-2 days Decision to Admit Reason: Admit from EC Decision Date: 12/16/17 Decision Time: 03:57
[2017-12-16 02:17] LABS: Albumin 3.4 g/dL (3.5-5.0); Calcium 9.2 mg/dL (8.4-10.2); Potassium 4.4 mmol/L (3.5-5.1); Total Bilirubin 0.6 mg/dL (0.2-1.3); Total Protein 5.3 g/dL (6.3-8.2)
--- NOTE | 2017-12-16 02:53 | XR ---
EXAMINATION TYPE: XR chest 2V DATE OF EXAM: 12/16/2017 COMPARISON: 12/06/2017 HISTORY: COPD TECHNIQUE: Frontal and lateral views of the chest are obtained. FINDINGS: There are scattered small calcified granulomata in the lungs. There is a mild infiltrate i n the right upper lobe. There is no heart failure. Thoracic aorta is atheromatous. Costophrenic angle s are clear. Bony thorax is intact. IMPRESSION: There is new right upper lobe infiltrate compared to last exam. No heart failure. Mild p ulmonary fibrosis.
[2017-12-16 03:23] LABS: INR 1.4 (<1.2); Partial Thromboplastin Time 25.4 sec (22.0-30.0); Prothrombin Time 13.2 sec (9.0-12.0)
[2017-12-16] MEDS ORDERED: NALOXONE 0.4 MG/ML 1 ML VIAL IV PRN (03:48)
[2017-12-16] MEDS ORDERED: NITROGLYCERIN SL TABS 0.4 MG TAB SUBLINGUAL PRN (03:50)
[2017-12-16] MEDS ORDERED: FUROSEMIDE 10 MG/ML 4 ML VIAL IV STA (03:50)
[2017-12-16] MEDS ORDERED: VANCOMYCIN IV PER PHARMACY 1 EACH MISC MISCELLANE PRN (03:54)
[2017-12-16] MEDS ORDERED: CEFEPIME 2 GM in SODIUM CHLORIDE 0.9% 50 ML IVPB STA (03:54)
[2017-12-16] MEDS ORDERED: predniSONE 10 MG TAB PO SCH (04:00)
[2017-12-16] MEDS ORDERED: VANCOMYCIN 1,250 MG in SODIUM CHLORIDE 0.9% 250 ML IVPB SCH (06:00)
[2017-12-16] MEDS: ALBUTEROL NEBULIZED 2.5 MG/3 ML INHALATION SCH ×4 (08:43→20:12)
[2017-12-16] MEDS ORDERED: METOPROLOL TARTRATE 50 MG TAB PO SCH (09:00)
[2017-12-16] MEDS: NYSTATIN 100,000 UNIT/ML SUSP 500,000 UNIT/5 ML CUP PO SCH ×4 (09:33→22:32)
[2017-12-16] MEDS: LEVOTHYROXINE 100 MCG TAB PO SCH (09:34)
[2017-12-16] MEDS: DOCUSATE 100 MG CAP PO SCH ×2 (09:35→20:04)
[2017-12-16] MEDS: LURASIDONE 40 MG TAB PO SCH (09:35)
[2017-12-16] MEDS: PANTOPRAZOLE 40 MG TABLET PO SCH (09:35)
[2017-12-16] MEDS: ATORVASTATIN 20 MG TAB PO SCH (09:35)
[2017-12-16] MEDS: CLOPIDOGREL 75 MG TAB PO SCH (09:35)
[2017-12-16] MEDS: CALCIUM POLYCARBOPHIL 625 MG TAB PO SCH (09:35)
[2017-12-16] MEDS: AMIODARONE 200 MG TAB PO SCH (09:35)
[2017-12-16] MEDS: MAGNESIUM OXIDE 400 MG TAB PO SCH (09:36)
[2017-12-16] MEDS: MULTIVITAMINS, THERA 1 EACH TAB PO SCH (09:36)
[2017-12-16] MEDS: FERROUS SULFATE 325 MG TAB PO SCH (09:36)
[2017-12-16] MEDS: POTASSIUM CHLORIDE ER 10 MEQ TAB.ER.PRT PO SCH (09:36)
[2017-12-16] MEDS: predniSONE 20 MG TAB PO SCH (09:37)
[2017-12-16] MEDS: HYDROcodone/APAP 5-325MG 1 EACH TAB PO PRN ×3 (09:42→20:04)
[2017-12-16] MEDS: IPRATROPIUM 0.5 MG/2.5 ML NEBU INHALATION SCH ×3 (09:53→17:29)
[2017-12-16] MEDS: SYMBICORT 80-4.5 MCG INHALER INHALATION SCH (09:53)
--- NOTE | 2017-12-16 12:45 | P.HPIM ---
History of Present Illness H&P Date: 12/16/17 Chief Complaint: Nosebleed This is a 67-year-old female with complex past medical history noted below who was recently discharged from the hospital to a local [facility]. Last night, patient started having epistaxis with nosebleed described as persistent for couple hours. This did not improve with compression administered by nursing staff at [facility]. Patient was sent to the hospital for further evaluation. At the time of her arrival, her epistaxis has resolved. She was evaluated in the emergency room. Her daughter was very concerned that her mother's heart rate is dropping to low-dose usually in the 50s. Her mother's is also complaining of shortness of breath only on exertion. Patient herself is complaining of severe pain in the right abdomen where she has a large bruise. There is no fall reported that recently. Patient otherwise denies cough, fevers or chills, significant shortness of breath at rest, or abnormal bowel movement. Chest x-ray in the emergency room showed no infiltrate in the left upper lobe. Patient is chronically on oxygen 2 L. She is generally a poor historian because of underlying cognitive impairment. Review of Systems Review of system: 14 points review of systems were obtained and were negative except to what were mentioned in the HPI. Past Medical History Past Medical History: Atrial Fibrillation, Asthma, Coronary Artery Disease (CAD) , Cancer, COPD, CVA/TIA, Eye Disorder, GERD/Reflux, Hyperlipidemia, Hypertension , Memory Impairment, Myocardial Infarction (PA), Osteoarthritis (OA), Respiratory Disorder, Sleep Apnea/CPAP/BIPAP, Thyroid Disorder, Vascular Disorder Additional Past Medical History / Comment(s): febrile, recent UTI, hypotensive. Other hx: Home O2 prn but ATC lately, CVA x 3 with R arm and R leg weakness , vascular dementia, R trigeminal neuralgia, R eye astigmatism, occluded JOSE ALEJANDRO, PVD, past htn but b/ps running low now, IBS, diarrhea/constipation, chronic abdominal pain, chronic back pain, migraines-none recently, one hip higher, RLS , tremors, CHANDU without device (unable to tolerate), UTIs, hypothyroid, nasopharyngeal inflammatory mass, TMJ yrs ago, R kidney cancer and uterine cancer with surgeries. Last Myocardial Infarction Date:: 11/03/14 History of Any Multi-Drug Resistant Organisms: None Reported Date of last positivie culture/infection: None Past Surgical History: Adenoidectomy, Bladder Surgery, Cholecystectomy, Ear Surgery, Heart Catheterization With Stent, Hysterectomy, Orthopedic Surgery, Tonsillectomy Additional Past Surgical History / Comment(s): 11/28/14 PTCA with stents, left CAROTID ENDARTERECTOMY, MULTIPLE BILATERAL STENTS IN LOWER EXTREMITIES, R elbow surgery as a child, R ear surgery for blockage, bilateral ankle arthroscopies, bilateral knee arthroscopies, deviated septal surgery, L great toe pinned, colonoscopies/benign polypectomy, R nephrectomy and partial bladder removal, skin lesion from nose. Past Anesthesia/Blood Transfusion Reactions: Motion Sickness Date of Last Stent Placement:: 10/2014 Past Psychological History: Bipolar Additional Psychological History / Comment(s): HAS A [employer] THROUGH [facility] [employer]. Pt lives with anam who is also her legal guardian. Uses cane at home and a walker on occasion, home O2 prn-pt lately using ATC. Has generally stopped tobacco use over the last several years but does occasionally smoke. Lives with a daughter who is an active smoker. Patient has a history of alcohol use in her youth no recent alcohol or recreational drug use. No experience. No international travel. No Animal exposures at this time Smoking Status: Former smoker Past Alcohol Use History: None Reported Additional Past Alcohol Use History / Comment(s): Pt started smoking in 1963 and quit in 2008. Past Drug Use History: None Reported - Past Family History Mother Family Medical History: COPD Additional Family Medical History / Comment(s): Mother is . She from respiratory failure. Father Family Medical History: Coronary Artery Disease (CAD), Myocardial Infarction (PA ) Additional Family Medical History / Comment(s): Father had gout Medications and Allergies Home Medications Medication Instructions Recorded Confirmed Type PARoxetine HCL 30 mg PO HS 07/02/14 12/16/17 History OXcarbazepine [Trileptal] 150 mg PO HS 11/04/14 12/16/17 History Melatonin 3 mg PO HS 03/05/16 12/16/17 History Atorvastatin Calcium [Lipitor] 20 mg PO DAILY@1700 06/13/17 12/16/17 History Calcium Polycarbophil [Fibercon] 1,250 mg PO DAILY@1700 06/13/17 12/16/17 History Clopidogrel Bisulfate [Plavix] 75 mg PO DAILY 06/13/17 12/16/17 History Ferrous Sulfate [Iron (65 MG 325 mg PO DAILY@1700 06/13/17 12/16/17 History Elemental)] Furosemide [Lasix] 40 mg PO DAILY@0600 06/13/17 12/16/17 History Levothyroxine Sodium [Synthroid] 100 mcg PO DAILY@0600 06/13/17 12/16/17 History Lurasidone HCl [Latuda] 20 mg PO DAILY 06/13/17 12/16/17 History Magnesium Oxide [Mag-Ox] 400 mg PO DAILY@1700 06/13/17 12/16/17 History Montelukast [Singulair] 10 mg PO HS 06/13/17 12/16/17 History Pantoprazole Sodium [Protonix] 40 mg PO DAILY 06/13/17 12/16/17 History Potassium Chloride [Klor-Con 10] 10 meq PO DAILY@1700 06/13/17 12/16/17 History Fluticasone/Vilanterol [Breo 1 puff INHALATION RT-DAILY 06/14/17 12/16/17 History Ellipta 100-25 Mcg Inhaler] Tiotropium [place] [Spiriva] 1 cap INHALATION RT-DAILY 06/14/17 12/16/17 History Rivaroxaban [Xarelto] 15 mg PO W/SUPPER #30 tab 06/16/17 12/16/17 Rx Albuterol Nebulized [Ventolin 2.5 mg INHALATION RT-QID nebu 12/01/17 12/16/17 Rx Nebulized] Nitroglycerin Sl Tabs [Nitrostat] 0.4 mg SUBLINGUAL Q5M PRN tab 12/01/17 Rx Polyethylene Glycol 3350 [Miralax] 17 gm PO HS powd.pack 12/01/17 12/16/17 Rx Amiodarone [Cordarone] 200 mg PO DAILY tab 12/10/17 12/16/17 Rx Cephalexin [Keflex] 500 mg PO Q8HR #21 cap 12/10/17 12/16/17 Rx Acetaminophen [Tylenol 8 Hour] 650 mg PO Q4H PRN 12/16/17 12/16/17 History Docusate [Colace] 100 mg PO BID@0800,1700 12/16/17 12/16/17 History HYDROcodone/APAP 5-325MG [[place] 1 tab PO Q4HR PRN 12/16/17 12/16/17 History 5-325] Lactose-Reduced Food [Ensure Plus] 240 ml PO BID@0800,1700 12/16/17 12/16/17 History Metoprolol Tartrate [Lopressor] 50 mg PO BID@0800,1700 12/16/17 12/16/17 History Multivitamins, Thera [Multivitamin 1 tab PO DAILY@1700 12/16/17 12/16/17 History (formulary)] Nystatin 100,000 Unit/ml Susp 500,000 units PO QID 12/16/17 12/16/17 History [Mycostatin Oral Susp] predniSONE See Taper PO DAILY 12/16/17 12/16/17 History Allergies Allergy/AdvReac Type Severity Reaction Status Date / Time albuterol Allergy Rash/Hives Verified 12/16/17 07:44 latex Allergy Rash/Hives Verified 12/16/17 07:44 Penicillins Allergy Unknown Verified 12/16/17 07:44 Childhood Physical Exam Vitals: Vital Signs Temp Pulse Pulse Resp BP BP Pulse Ox 12/16/17 09:44 20 12/16/17 06:25 96.6 F L 59 L 20 131/75 94 L 12/16/17 05:17 59 L 20 164/72 93 L 12/16/17 03:54 97.0 F L 56 L 20 169/79 96 12/16/17 02:30 65 20 146/82 95 12/16/17 00:12 97.8 F 54 L 20 153/83 95 Intake and Output 12/15/17 12/16/17 12/16/17 22:59 06:59 14:59 Intake Total 140 200 Balance 140 200 Intake: Amount of Fluid Infused ( 40 ml) Oral 100 200 Other: Voiding Method Bedside Commode Bedside Commode # Voids 1 1 # Bowel Movements 0 Weight 70.76 kg General: The patient is awake and alert, in no distress Eye: there is normal conjunctiva bilaterally. Neck: The neck is supple, there is no JVD. Cardiovascular: Normal S1-S2, no S3-S4, no murmurs. Respiratory: Lungs clear to auscultation bilaterally Gastrointestinal: Abdomen is soft, nontender Musculoskeletal: There is no pedal edema. Neurological:. Speech is normal. Results CBC & Chem 7: 04/26/18 02:00 12/16/17 02:00 Labs: Abnormal Lab Results - Last 24 Hours (Table) 12/16/17 12/16/17 12/16/17 Range/Units 02:00 02:00 02:00 WBC 11.1 H (3.8-10.6) k/uL Hgb 11.3 L (11.4-16.0) gm/dL MCHC 30.3 L (31.0-37.0) g/dL RDW 18.8 H (11.5-15.5) % Neutrophils # 8.9 H (1.3-7.7) k/uL PT 13.2 H (9.0-12.0) sec INR 1.4 H (<1.2) BUN 24 H (7-17) mg/dL Total Protein 5.3 L (6.3-8.2) g/dL Albumin 3.4 L (3.5-5.0) g/dL Thrombosis Risk Factor Assmnt - Choose All That Apply Any of the Below Risk Factors Present?: Yes Each Factor Represents 1 point: Acute PA, Obesity (BMI >25), Swollen legs ( current) Other Risk Factors: Yes Each Risk Factor Represents 2 Points: Age 61-74 years Other congenital or acquired thrombophilia - If yes, enter type in comment: No Thrombosis Risk Factor Assessment Total Risk Factor Score: 5 Thrombosis Risk Factor Assessment Level: High Risk Assessment and Plan Assessment: 1. Epistaxis, resolved. Patient daughter informed me that her mother had previous issues regarding possible polyp with scarring tissue that was evaluated by ENT before and failed resection secondary to heart anatomy. Her epistaxis completely resolved right now. We will continue to monitor closely 2. Underlying chronic atrial fibrillation, maintained on amiodarone and metoprolol. 3. Sinus bradycardia: Probably attributed to beta blockers. I would decrease her metoprolol dose from 50 mg to 25 mg twice daily. Patient has a portable monitor placed at cardiology office 4. Diastolic heart failure: Patient appeared euvolemic on exam. Her BNP was significantly elevated compared to her last hospitalization. I would start gentle diuresis with IV Lasix 20 mg twice daily and repeat her BMP within the next day or 2 5. Large bruise involving the right abdominal wall, patient's hemoglobin is stable. I doubt any significant hematoma. Her daughter is very concerned and we will obtain a computed tomography scan to rule out intra-abdominal hematoma. 6. Underlying COPD with no evidence of exacerbation 7. Chronic hypoxic respiratory failure on home O2 8. Recent MSSA pneumonia just finished antibiotic course 2 days ago. Patient does not have any clinical indication of recurrent pneumonia. No fevers, cough , or leukocytosis. No need for any further antibiotic treatment at this point. May repeat chest x-ray within the next day or 2. Mild leukocytosis secondary to prednisone course the patient is receiving for recent COPD exacerbation 9. Hypothyroidism on Synthroid 10. History of coronary artery disease with cardiac stent 11. underlying vascular dementia 12. Severe peripheral vascular occlusive disease with multiple stent placement 13. History of CVA/stroke Today, I had a prolonged discussion over the phone with her daughter. I explained to her risk and benefits from anticoagulation. I informed her that her current condition would probably warrant the use of anticoagulation to prevent further CVAs. Recent epistaxis was not severe enough for us to stop her anticoagulation. We agree that this decision may change in the future if we see any more significant bleed. I also discussed with her the complexity of her mother's case given multiple comorbidities and guarded prognosis. I answered all of her questions to her satisfaction.
[2017-12-16] MEDS: RIVAROXABAN 15 MG TAB PO SCH (17:28)
--- NOTE | 2017-12-16 17:59 | CT ---
EXAMINATION TYPE: CT abdomen pelvis wo con DATE OF EXAM: 12/16/2017 COMPARISON: 11/26/2017 INDICATION: Rt side bruising and pain DLP: 459 mGycm, Automated exposure control for dose reduction was used. CONTRAST: 0 mL of Isovue 300. Study performed without Oral Contrast TECHNIQUE: Axial images were obtained from above the diaphragm to the pubic rami in the axial plane a t 5 mm thick sections. Reconstructed images are reviewed on the computer in the coronal plane. FINDINGS: Limited CT sections are obtained the lung bases. Some minimal subsegmental atelectasis is likely pre sent at the lung bases. Coronary artery calcification is noted.. CT ABDOMEN: Liver: Normal Spleen: Normal Pancreas: Atrophic Adrenal glands: The adrenal glands are normal. Gallbladder: Surgically absent. Multiple surgical clips are within the gallbladder bed. Kidneys: Right kidney is been resected. Left kidney appears normal. A punctate calcification measurin g 0.2 cm at the inferior pole.. No hydronephrosis is present. No cysts are present. Aorta: Marked Vascular calcification is within the aorta. Inferior vena cava: Normal. Lymph nodes: No suspicious lymphadenopathy in the periaortic or retrocaval region is evident. No susp icious adenopathy at the level of the renal veins is evident. A couple of small shotty lymph nodes ar e present. Aortic bifurcation appears normal. No inguinal or iliac chain lymphadenopathy is evident. CT PELVIS: Free fluid is within the pelvis. Loops of bowel within the abdomen and pelvis are normal. Study is without oral contrast limiting the evaluation. Appendix: Normal as visualized. Urinary bladder: Normal. Genitourinary structures: Uterus and ovaries are not identified. Osseous structures: No suspicious lytic or sclerotic lesions. Facet changes are present. No expansile lesions are evident. There appears to be some subcutaneous increased density along the right flank. Some thickening of the musculature adjacent to the posterior lateral thoracic ribs is present. This could be residual hemat abiola which may account for the patient reported ecchymosis. IMPRESSIONS: 1. No suspicious changes to suggest metastatic disease. 2. Subcutaneous increased density along the right flank may represent some residual hemorrhage withou t a discrete hematoma and can account for the patient's reported ecchymosis.
[2017-12-16] MEDS: METOPROLOL TARTRATE 25 MG TAB PO SCH (20:04)
[2017-12-16] MEDS ORDERED: IPRATROPIUM 0.5 MG/2.5 ML NEBU INHALATION SCH (21:00)
[2017-12-16] MEDS ORDERED: MONTELUKAST 10 MG TAB PO SCH (21:00)
[2017-12-16] MEDS ORDERED: OXcarbazepine 150 MG TAB PO SCH (21:00)
[2017-12-16] MEDS ORDERED: MELATONIN 3 MG TABLET PO SCH (21:00)
[2017-12-16] MEDS ORDERED: POLYETHYLENE GLYCOL 3350 17 GM POWD.PACK PO SCH (21:00)
[2017-12-16] MEDS ORDERED: PARoxetine 10 MG TAB PO SCH (21:00)
[2017-12-16] MEDS ORDERED: SYMBICORT 80-4.5 MCG INHALER INHALATION SCH (21:00)
[2017-12-16] MEDS: FUROSEMIDE 10 MG/ML 2 ML VIAL IV SCH (22:32)
[2017-12-17] MEDS: SYMBICORT 80-4.5 MCG INHALER INHALATION SCH (06:58)
[2017-12-17] MEDS: IPRATROPIUM 0.5 MG/2.5 ML NEBU INHALATION SCH (06:58)
[2017-12-17 07:32] VITALS: BP 121/75; PULSE 56; RESP 18; TEMP 97.2
[2017-12-17] MEDS: ALBUTEROL NEBULIZED 2.5 MG/3 ML INHALATION SCH ×3 (08:32→16:23)
[2017-12-17] MEDS: MULTIVITAMINS, THERA 1 EACH TAB PO SCH (08:42)
[2017-12-17] MEDS: FERROUS SULFATE 325 MG TAB PO SCH (08:42)
[2017-12-17] MEDS: AMIODARONE 200 MG TAB PO SCH (08:42)
[2017-12-17] MEDS: PANTOPRAZOLE 40 MG TABLET PO SCH (08:43)
[2017-12-17] MEDS: NYSTATIN 100,000 UNIT/ML SUSP 500,000 UNIT/5 ML CUP PO SCH ×3 (08:43→16:58)
[2017-12-17] MEDS: POTASSIUM CHLORIDE ER 10 MEQ TAB.ER.PRT PO SCH (08:43)
[2017-12-17] MEDS: LEVOTHYROXINE 100 MCG TAB PO SCH (08:43)
[2017-12-17] MEDS: CLOPIDOGREL 75 MG TAB PO SCH (08:43)
[2017-12-17] MEDS: METOPROLOL TARTRATE 25 MG TAB PO SCH (08:43)
[2017-12-17] MEDS: CALCIUM POLYCARBOPHIL 625 MG TAB PO SCH (08:43)
[2017-12-17] MEDS: predniSONE 20 MG TAB PO SCH (08:44)
[2017-12-17] MEDS: DOCUSATE 100 MG CAP PO SCH (08:44)
[2017-12-17] MEDS: ATORVASTATIN 20 MG TAB PO SCH (08:44)
[2017-12-17] MEDS: MAGNESIUM OXIDE 400 MG TAB PO SCH (08:44)
[2017-12-17] MEDS: LURASIDONE 40 MG TAB PO SCH (08:44)
[2017-12-17] MEDS ORDERED: BREO ELLIPTA INHALATION SCH (09:00)
[2017-12-17] MEDS ORDERED: SPIRIVA 18 MCG INHALATION SCH (09:00)
[2017-12-17 09:56] LABS: Anisocytosis Slight; Basophils % (A) 0 %; Eosinophils # (A) 0.1 k/uL (0-0.7); Eosinophils % (A) 1 %; HCT 39.3 % (34.0-46.0); HGB 11.7 gm/dL (11.4-16.0); Hypochromasia Marked; Lymphocytes # (A) 1.8 k/uL (1.0-4.8); Lymphocytes % (A) 14 %; MCH 26.3 pg (25.0-35.0); MCHC 29.8 g/dL (31.0-37.0); MCV 88.3 fL (80.0-100.0); Monocytes # (A) 0.8 k/uL (0-1.0); Monocytes % (A) 6 %; Neutrophils # (A) 10.6 k/uL (1.3-7.7); Neutrophils % (A) 79 %; Platelet Count 278 k/uL (150-450); RBC 4.45 m/uL (3.80-5.40); WBC 13.5 k/uL (3.8-10.6)
[2017-12-17 10:19] LABS: Calcium 9.1 mg/dL (8.4-10.2); Potassium 3.8 mmol/L (3.5-5.1)
[2017-12-17] MEDS: FUROSEMIDE 10 MG/ML 2 ML VIAL IV SCH (11:12)
[2017-12-17] MEDS: HYDROcodone/APAP 5-325MG 1 EACH TAB PO PRN ×2 (11:15→16:58)
--- NOTE | 2017-12-17 12:04 | P.DS ---
Providers Date of admission: 12/16/17 04:24 Expected date of discharge: 12/17/17 Attending physician: Pam Tamayo Consults: 12/16/17 12:35 Consult Physician Routine Consulting Provider: Connor Bernal Consult Reason/Comments: A. fib/heart failure Do you want consulting provider notified?: Yes Primary care physician: Lolita Fraga [facility] Course: 1. Epistaxis, resolved. Patient daughter informed me that her mother had previous issues regarding possible polyp with scarring tissue that was evaluated by ENT before and failed resection secondary to heart anatomy. Her epistaxis completely resolved right now. Follow-up with ENT in the office as directed 2. Underlying chronic atrial fibrillation, maintained on amiodarone and metoprolol. 3. Sinus bradycardia: Probably attributed to beta blockers. I would decrease her metoprolol dose from 50 mg to 25 mg twice daily. Patient has a portable monitor placed at cardiology office. She was seen and evaluated by cardiology here in the hospital. No changes were recommended otherwise. 4. Diastolic heart failure: Patient appeared euvolemic on exam. Her BNP was significantly elevated compared to her last hospitalization. She was diuresed with IV Lasix. We'll switch back to oral 5. Large bruise involving the right abdominal wall, patient's hemoglobin is stable. Computed tomography scan of the abdomen was no he evidence of hematoma 6. Underlying COPD with no evidence of exacerbation 7. Chronic hypoxic respiratory failure on home O2 8. Recent MSSA pneumonia just finished antibiotic course 2 days ago. 9. Hypothyroidism on Synthroid 10. History of coronary artery disease with cardiac stent 11. underlying vascular dementia 12. Severe peripheral vascular occlusive disease with multiple stent placement 13. History of CVA/stroke Patient Condition at Discharge: Serious Plan - Discharge Summary Discharge Rx Participant: No New Discharge Prescriptions: New Metoprolol Tartrate [Lopressor] 25 mg PO BID #60 tab Continue PARoxetine HCL 30 mg PO HS OXcarbazepine [Trileptal] 150 mg PO HS Melatonin 3 mg PO HS Potassium Chloride [Klor-Con 10] 10 meq PO DAILY@1700 Pantoprazole Sodium [Protonix] 40 mg PO DAILY Montelukast [Singulair] 10 mg PO HS Magnesium Oxide [Mag-Ox] 400 mg PO DAILY@1700 Lurasidone HCl [Latuda] 20 mg PO DAILY Levothyroxine Sodium [Synthroid] 100 mcg PO DAILY@0600 Furosemide [Lasix] 40 mg PO DAILY@0600 Ferrous Sulfate [Iron (65 MG Elemental)] 325 mg PO DAILY@1700 Clopidogrel Bisulfate [Plavix] 75 mg PO DAILY Calcium Polycarbophil [Fibercon] 1,250 mg PO DAILY@1700 Atorvastatin Calcium [Lipitor] 20 mg PO DAILY@1700 Fluticasone/Vilanterol [Breo Ellipta 100-25 Mcg Inhaler] 1 puff INHALATION RT -DAILY Tiotropium [place] [Spiriva] 1 cap INHALATION RT-DAILY Rivaroxaban [Xarelto] 15 mg PO W/SUPPER #30 tab Albuterol Nebulized [Ventolin Nebulized] 2.5 mg INHALATION RT-QID nebu Nitroglycerin Sl Tabs [Nitrostat] 0.4 mg SUBLINGUAL Q5M PRN tab PRN Reason: Chest Pain Polyethylene Glycol 3350 [Miralax] 17 gm PO HS powd.pack Amiodarone [Cordarone] 200 mg PO DAILY tab HYDROcodone/APAP 5-325MG [[place] 5-325] 1 tab PO Q4HR PRN PRN Reason: Pain Lactose-Reduced Food [Ensure Plus] 240 ml PO BID@0800,1700 Multivitamins, Thera [Multivitamin (formulary)] 1 tab PO DAILY@1700 Changed Docusate [Colace] 100 mg PO BID@0800,1700 PRN #0 PRN Reason: Constipation Discontinued Cephalexin [Keflex] 500 mg PO Q8HR #21 cap Acetaminophen [Tylenol 8 Hour] 650 mg PO Q4H PRN PRN Reason: Pain Metoprolol Tartrate [Lopressor] 50 mg PO BID@0800,1700 Nystatin 100,000 Unit/ml Susp [Mycostatin Oral Susp] 500,000 units PO QID predniSONE See Taper PO DAILY Discharge Medication List PARoxetine HCL 30 mg PO HS 07/02/14 [History] OXcarbazepine [Trileptal] 150 mg PO HS 11/04/14 [History] Melatonin 3 mg PO HS 03/05/16 [History] Atorvastatin Calcium [Lipitor] 20 mg PO DAILY@1700 06/13/17 [History] Calcium Polycarbophil [Fibercon] 1,250 mg PO DAILY@1700 06/13/17 [History] Clopidogrel Bisulfate [Plavix] 75 mg PO DAILY 06/13/17 [History] Ferrous Sulfate [Iron (65 MG Elemental)] 325 mg PO DAILY@1700 06/13/17 [History] Furosemide [Lasix] 40 mg PO DAILY@0600 06/13/17 [History] Levothyroxine Sodium [Synthroid] 100 mcg PO DAILY@0600 06/13/17 [History] Lurasidone HCl [Latuda] 20 mg PO DAILY 06/13/17 [History] Magnesium Oxide [Mag-Ox] 400 mg PO DAILY@1700 06/13/17 [History] Montelukast [Singulair] 10 mg PO HS 06/13/17 [History] Pantoprazole Sodium [Protonix] 40 mg PO DAILY 06/13/17 [History] Potassium Chloride [Klor-Con 10] 10 meq PO DAILY@1700 06/13/17 [History] Fluticasone/Vilanterol [Breo Ellipta 100-25 Mcg Inhaler] 1 puff INHALATION RT- DAILY 06/14/17 [History] Tiotropium [place] [Spiriva] 1 cap INHALATION RT-DAILY 06/14/17 [History] Rivaroxaban [Xarelto] 15 mg PO W/SUPPER #30 tab 06/16/17 [Rx] Albuterol Nebulized [Ventolin Nebulized] 2.5 mg INHALATION RT-QID nebu [Rx] Nitroglycerin Sl Tabs [Nitrostat] 0.4 mg SUBLINGUAL Q5M PRN tab 12/01/17 [Rx] Polyethylene Glycol 3350 [Miralax] 17 gm PO HS powd.pack 12/01/17 [Rx] Amiodarone [Cordarone] 200 mg PO DAILY tab 12/10/17 [Rx] HYDROcodone/APAP 5-325MG [[place] 5-325] 1 tab PO Q4HR PRN 12/16/17 [History] Lactose-Reduced Food [Ensure Plus] 240 ml PO BID@0800,1700 12/16/17 [History] Multivitamins, Thera [Multivitamin (formulary)] 1 tab PO DAILY@1700 12/16/17 [ History] Docusate [Colace] 100 mg PO BID@0800,1700 PRN #0 12/17/17 [Rx] Metoprolol Tartrate [Lopressor] 25 mg PO BID #60 tab 12/17/17 [Rx] Follow up Appointment(s)/Referral(s): Lolita Fraga DO [Primary Care Provider] - 3 Days Connor Bernal MD [STAFF PHYSICIAN] - 1 Week Patient Instructions/Handouts: Heart Failure (DC) Activity/Diet/Wound Care/Special Instructions: Cardiac diet Fall precautions, up with assist, activity as tolerated. Discharge Disposition: HOME WITH HOME HEALTH SERVICES
--- NOTE | 2017-12-17 12:34 | P.CRDCN ---
History of Present Illness Consult date: 12/17/17 History of present illness: Mrs. 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 She sees Dr. Bernal in the office. We have been asked to see her in consultation for symptoms of heart failure. She presented to the ED with daughter after having an episode of epistaxis that lasted approximately 1 hour and resolved on its own. Once she was here the daughter also verbalized concerns about her breathing and lower extremity swelling. She was recently admitted for acute respiratory failure and was intubated. She was discharged to extended care facility 12/10. At the time of my exam she is seen and examined sitting up in the chair in no acute distress. She denies symptoms of chest pain, dizziness, palpitations, nausea, vomiting or diarrhea. She c/o shortness of breath with exertion and at rest. She states she has chronic shortness of breath however in the last few days is has been worse. What seems to improve her breathing is using her inhalers. She sleeps propped up on multiple pillows at almost a 90 degree angle but states this is her baseline and she has been doing that for years. There is some discussion in chart about her mental status, however during exam she is alert and oriented x3 and answering questions appropriately. EKG is sinus bradycardia heart rate 55 with right bundle branch block pattern. Chest xray reveals new right upper lobe infiltrate compared to exam earlier this month. Mild pulmonary fibrosis and no heart failure. CT abdomen/pelvis shows increased density along right flank with residual hemorrhage without discrete hematoma. Laboratory data reviewed, WBC 13.5, hemoglobin 11.7, platelets 278, sodium 141, potassium 3.8, creatinine 1.06 up from 1.0 on admission, proBNP on admission 16, 000. Current cardiac medications include Xarelto 15 mg daily, potassium supplementation 10 daily, Lasix 40 mg daily, Plavix 75 mg daily, atorvastatin 20 mg daily, amiodarone 200 mg daily and metoprolol 25 mg twice a day. She also takes Keyes, albuterol, Spiriva, Colace, MiraLAX, Protonix, proximal attained, Trileptal, Singulair, O2 to, Synthroid, iron supplementation, Breo ellipta and magnesium supplementation. Echocardiogram from 11/13/2017 reveals preserved LV systolic function with EF 55- 60%, severely dilated LA, mild LVH, mild TR and mild MR. Review of Systems At the time of my exam: CONSTITUTIONAL: Denies fever. Denies chills. EYES: Denies blurred vision. Denies vision changes. Denies eye pain. EARS, NOSE, MOUTH & THROAT: Denies headache. Denies sore throat. Denies ear pain. CARDIOVASCULAR: Denies chest pain. Complains of shortness of breath. Complains of orthopnea. Denies PND. Denies palpitations. RESPIRATORY: Complains of cough. GASTROINTESTINAL: Denies abdominal pain. Denies diarrhea. Denies constipation. Denies nausea. Denies vomiting. MUSCULOSKELETAL: Denies myalgias. INTEGUMENTARY: Denies pruitis. Denies rash. NEUROLOGIC: Denies numbness. Denies tingling. Denies weakness. PSYCHIATRIC: Denies anxiety. Denies depression. ENDOCRINE: Denies fatigue. Denies weight change. Denies polydipsia. Denies polyurina. GENITOURINARY: Denies burning, hematuria or urgency with micturation. HEMATOLOGIC: Denies history of anemia. Denies bleeding. Past Medical History Past Medical History: Atrial Fibrillation, Asthma, Coronary Artery Disease (CAD) , Cancer, COPD, CVA/TIA, Eye Disorder, GERD/Reflux, Hyperlipidemia, Hypertension , Memory Impairment, Myocardial Infarction ([place]), Osteoarthritis (OA), Respiratory Disorder, Sleep Apnea/CPAP/BIPAP, Thyroid Disorder, Vascular Disorder Additional Past Medical History / Comment(s): febrile, recent UTI, hypotensive. Other hx: Home O2 prn but ATC lately, CVA x 3 with R arm and R leg weakness , vascular dementia, R trigeminal neuralgia, R eye astigmatism, occluded JOSE ALEJANDRO, PVD, past htn but b/ps running low now, IBS, diarrhea/constipation, chronic abdominal pain, chronic back pain, migraines-none recently, one hip higher, RLS , tremors, CHANDU without device (unable to tolerate), UTIs, hypothyroid, nasopharyngeal inflammatory mass, TMJ yrs ago, R kidney cancer and uterine cancer with surgeries. Last Myocardial Infarction Date:: 11/03/14 History of Any Multi-Drug Resistant Organisms: None Reported Date of last positivie culture/infection: None Past Surgical History: Adenoidectomy, Bladder Surgery, Cholecystectomy, Ear Surgery, Heart Catheterization With Stent, Hysterectomy, Orthopedic Surgery, Tonsillectomy Additional Past Surgical History / Comment(s): 11/28/14 PTCA with stents, left CAROTID ENDARTERECTOMY, MULTIPLE BILATERAL STENTS IN LOWER EXTREMITIES, R elbow surgery as a child, R ear surgery for blockage, bilateral ankle arthroscopies, bilateral knee arthroscopies, deviated septal surgery, L great toe pinned, colonoscopies/benign polypectomy, R nephrectomy and partial bladder removal, skin lesion from nose. 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 Pt lives with anam who is also her legal guardian. Uses cane at home and a walker on occasion, home O2 prn-pt lately using ATC. Has generally stopped tobacco use over the last several years but does occasionally smoke. Lives with a daughter who is an active smoker. Patient has a history of alcohol use in her youth no recent alcohol or recreational drug use. No experience. No international travel. No Animal exposures at this time Smoking Status: Former smoker Past Alcohol Use History: None Reported Additional Past Alcohol Use History / Comment(s): Pt started smoking in 1963 and quit in 2008. Past Drug Use History: None Reported - Past Family History Mother Family Medical History: COPD Additional Family Medical History / Comment(s): Mother is . She from respiratory failure. Father Family Medical History: Coronary Artery Disease (CAD), Myocardial Infarction ([place] ) Additional Family Medical History / Comment(s): Father had gout Medications and Allergies Home Medications Medication Instructions Recorded Confirmed Type PARoxetine HCL 30 mg PO HS 07/02/14 12/16/17 History OXcarbazepine [Trileptal] 150 mg PO HS 11/04/14 12/16/17 History Melatonin 3 mg PO HS 03/05/16 12/16/17 History Atorvastatin Calcium [Lipitor] 20 mg PO DAILY@1700 06/13/17 12/16/17 History Calcium Polycarbophil [Fibercon] 1,250 mg PO DAILY@1700 06/13/17 12/16/17 History Clopidogrel Bisulfate [Plavix] 75 mg PO DAILY 06/13/17 12/16/17 History Ferrous Sulfate [Iron (65 MG 325 mg PO DAILY@1700 06/13/17 12/16/17 History Elemental)] Furosemide [Lasix] 40 mg PO DAILY@0600 06/13/17 12/16/17 History Levothyroxine Sodium [Synthroid] 100 mcg PO DAILY@0600 06/13/17 12/16/17 History Lurasidone HCl [Latuda] 20 mg PO DAILY 06/13/17 12/16/17 History Magnesium Oxide [Mag-Ox] 400 mg PO DAILY@1700 06/13/17 12/16/17 History Montelukast [Singulair] 10 mg PO HS 06/13/17 12/16/17 History Pantoprazole Sodium [Protonix] 40 mg PO DAILY 06/13/17 12/16/17 History Potassium Chloride [Klor-Con 10] 10 meq PO DAILY@1700 06/13/17 12/16/17 History Fluticasone/Vilanterol [Breo 1 puff INHALATION RT-DAILY 06/14/17 12/16/17 History Ellipta 100-25 Mcg Inhaler] Tiotropium [place] [Spiriva] 1 cap INHALATION RT-DAILY 06/14/17 12/16/17 History Rivaroxaban [Xarelto] 15 mg PO W/SUPPER #30 tab 06/16/17 12/16/17 Rx Albuterol Nebulized [Ventolin 2.5 mg INHALATION RT-QID nebu 12/01/17 12/16/17 Rx Nebulized] Nitroglycerin Sl Tabs [Nitrostat] 0.4 mg SUBLINGUAL Q5M PRN tab 12/01/17 Rx Polyethylene Glycol 3350 [Miralax] 17 gm PO HS powd.pack 12/01/17 12/16/17 Rx Amiodarone [Cordarone] 200 mg PO DAILY tab 12/10/17 12/16/17 Rx HYDROcodone/APAP 5-325MG [[place] 1 tab PO Q4HR PRN 12/16/17 12/16/17 History 5-325] Lactose-Reduced Food [Ensure Plus] 240 ml PO BID@0800,1700 12/16/17 12/16/17 History Multivitamins, Thera [Multivitamin 1 tab PO DAILY@1700 12/16/17 12/16/17 History (formulary)] Docusate [Colace] 100 mg PO BID@0800,1700 PRN #0 12/17/17 12/16/17 Rx Metoprolol Tartrate [Lopressor] 25 mg PO BID #60 tab 12/17/17 Rx Allergies Allergy/AdvReac Type Severity Reaction Status Date / Time albuterol Allergy Rash/Hives Verified 12/16/17 07:44 latex Allergy Rash/Hives Verified 12/16/17 07:44 Penicillins Allergy Unknown Verified 12/16/17 07:44 Childhood Physical Exam Vitals: Vital Signs Temp Pulse Resp BP BP Pulse Ox 12/17/17 08:36 18 12/17/17 07:12 97.2 F L 56 L 18 121/75 94 L 12/16/17 23:00 96.8 F L 101 H 20 122/69 95 12/16/17 20:03 61 128/85 95 12/16/17 15:58 19 12/16/17 15:00 97.4 F L 93 19 94/61 94 L Intake and Output 12/16/17 12/17/17 12/17/17 22:59 06:59 14:59 Intake Total 400 200 120 Balance 400 200 120 Intake: Oral 400 200 120 Other: Voiding Method Bedside Commode Bedside Commode # Voids 5 5 1 # Bowel Movements 0 0 Weight 70.76 kg 70.76 kg Blood pressure 121/75 heart rate 56 afebrile maintaining oxygen saturation on nasal cannula 3 L GENERAL: This is a 67-year-old female in no apparent distress at the time of my examination. HEENT: Head is atraumatic, normocephalic. Pupils are equal, round. Sclerae anicteric. Conjunctivae are clear. Mucous membranes of the mouth are moist. Neck is supple. There is no jugular venous distention. No carotid bruit is heard. LUNGS: Clear to auscultation no wheezes, rales or rhonchi. No chest wall tenderness is noted on palpation or with deep breathing. Diminished bilaterally. HEART: Regular rate and rhythm without murmurs, rubs or gallops. S1 and S2 heard. ABDOMEN: Soft, nontender. Bowel sounds are heard. No organomegaly noted. EXTREMITIES: No evidence of peripheral edema and no calf tenderness noted. VASCULAR: Radial and dorsalis pedis pulses palpated, no evidence of clubbing. NEUROLOGIC: Patient is awake, alert and oriented x3. Results 12/17/17 09:06 12/17/17 09:06 CBC 12/17/17 Range/Units 09:06 WBC 13.5 H (3.8-10.6) k/uL RBC 4.45 (3.80-5.40) m/uL Hgb 11.7 (11.4-16.0) gm/dL Hct 39.3 (34.0-46.0) % Plt Count 278 (150-450) k/uL Comprehensive Metabolic Panel 12/17/17 Range/Units 09:06 Sodium 141 (137-145) mmol/L Potassium 3.8 (3.5-5.1) mmol/L Chloride 99 (98-107) mmol/L Carbon Dioxide 28 (22-30) mmol/L BUN 20 H (7-17) mg/dL Creatinine 1.06 H (0.52-1.04) mg/dL Glucose 96 (74-99) mg/dL Calcium 9.1 (8.4-10.2) mg/dL Current Medications Generic Name Dose Route Start Last Admin Trade Name Freq PRN Reason Stop Dose Admin Hydrocodone Bitart/Acetaminophen 1 each 12/16/17 03:50 12/17/17 11:15 Keyes 5-325 PO 1 each Q4HR PRN Administration Moderate Pain Albuterol Sulfate 2.5 mg 12/16/17 08:00 12/17/17 10:36 Ventolin Nebulized INHALATION Not Given RT-QID AAKASH Amiodarone HCl 200 mg 12/16/17 09:00 12/17/17 08:42 Cordarone PO 200 mg DAILY AAKASH Administration Atorvastatin Calcium 20 mg 12/16/17 09:00 12/17/17 08:44 Lipitor PO 20 mg DAILY AAKASH Administration Calcium Polycarbophil 1,250 mg 12/16/17 09:00 12/17/17 08:43 Fibercon PO 1,250 mg DAILY AAKASH Administration Clopidogrel Bisulfate 75 mg 12/16/17 09:00 12/17/17 08:43 Plavix PO 75 mg DAILY AAKASH Administration Docusate Sodium 100 mg 12/16/17 09:00 12/17/17 08:44 Colace PO 100 mg BID AAKASH Administration Ferrous Sulfate 325 mg 12/16/17 09:00 12/17/17 08:42 Feosol PO 325 mg DAILY AAKASH Administration Furosemide 20 mg 12/16/17 21:00 12/17/17 11:12 Lasix IV 20 mg Q12HR AAKASH Administration Levothyroxine Sodium 100 mcg 12/16/17 09:00 12/17/17 08:43 Synthroid PO 100 mcg DAILY AAKASH Administration Lurasidone HCl 20 mg 12/16/17 09:00 12/17/17 08:44 Latuda PO 20 mg DAILY AAKASH Administration Magnesium Oxide 400 mg 12/16/17 09:00 12/17/17 08:44 Mag-Ox PO 400 mg DAILY AAKASH Administration Melatonin 3 mg 12/16/17 21:00 12/16/17 20:04 Melatonin PO 3 mg HS AAKASH Administration Metoprolol Tartrate 25 mg 12/16/17 21:00 12/17/17 08:43 Lopressor PO 25 mg BID AAKASH Administration Montelukast Sodium 10 mg 12/16/17 21:00 12/16/17 20:04 Singulair PO 10 mg HS AAKASH Administration Multivitamins 1 each 12/16/17 12:00 12/17/17 08:42 Theragran PO 1 each DAILY@1200 AAKASH Administration Naloxone HCl 0.2 mg 12/16/17 03:48 Narcan IV Q2M PRN Opioid Reversal Nitroglycerin 0.4 mg 12/16/17 03:50 Nitrostat SUBLINGUAL Q5M PRN Chest Pain Breo Ellipta 1 each 12/17/17 09:00 12/17/17 08:52 INHALATION 1 each DAILY AAKASH Administration Spiriva 18 Mcg 1 each 12/17/17 09:00 12/17/17 08:52 Inhaler INHALATION 1 each DAILY AAKASH Administration Nystatin 100,000 unit 12/16/17 09:00 12/17/17 10:36 Mycostatin Oral Susp PO Not Given QID AAKASH Oxcarbazepine 150 mg 12/16/17 21:00 12/16/17 20:04 Trileptal PO 150 mg HS AAKSAH Administration Pantoprazole Sodium 40 mg 12/16/17 09:00 12/17/17 08:43 Protonix PO 40 mg DAILY AAKASH Administration Paroxetine HCl 30 mg 12/16/17 21:00 12/16/17 20:04 Paxil PO 30 mg HS AAKASH Administration Polyethylene Glycol 17 gm 12/16/17 21:00 12/16/17 20:04 Miralax PO 17 gm HS AAKASH Administration Potassium Chloride 10 meq 12/16/17 09:00 12/17/17 08:43 K-Dur 10 PO 10 meq DAILY AAKASH Administration Prednisone 20 mg 12/16/17 09:00 12/17/17 08:44 PO 12/18/17 09:01 20 mg DAILY AAKASH Administration Prednisone 10 mg 12/19/17 09:00 PO 12/21/17 09:01 DAILY AAKASH Rivaroxaban 15 mg 12/16/17 17:30 12/16/17 17:28 Xarelto PO 15 mg W/SUPPER AAKASH Administration Intake and Output 12/16/17 12/17/17 12/17/17 22:59 06:59 14:59 Intake Total 400 200 120 Balance 400 200 120 Intake: Oral 400 200 120 Other: Voiding Method Bedside Commode Bedside Commode # Voids 5 5 1 # Bowel Movements 0 0 Weight 70.76 kg 70.76 kg Patient Weight 12/18/17 06:59 Weight 70.76 kg 12/17/17 09:06 12/17/17 09:06 Assessment and Plan Assessment: ASSESSMENT 1. Acute on chronic diastolic heart failure. ProBNP 16,000. 2. Paroxysmal atrial fibrillation currently maintaining sinus mechanism on long -term anticoagulation. 3. COPD 4. Hypertension 5. Peripheral vascular disease 6. Hypothyroidism 7. Chronic hypoxic respiratory failure 8. Right lower lobe infiltrate suggestive of pneumonia PLAN Transition to oral diuretics. She appears to have a combination of COPD and heart failure exacerbation. Thank you kindly for this consultation. The above impression and plan of care have been discussed and directed by the signing physician. Kiersten Torres, nurse practitioner, acting as scribe for signing physician.
[2017-12-17 15:13] VITALS: BMI 26.7
[2017-12-17] MEDS: RIVAROXABAN 15 MG TAB PO SCH (16:58)
[2017-12-19] MEDS ORDERED: predniSONE 10 MG TAB PO SCH (09:00)
== END 2017-12-17 19:32 | disposition home health service (06) | DRG 291 ==
LOC: EC 00:08 → 4MS4W 04:24
PROVIDERS: ADMIT Internal Medicine; ATTEND Internal Medicine
DX: I11.0 Hypertensive heart disease with heart failure (principal); J18.9 Pneumonia, unspecified organism; J44.0 Chronic obstructive pulmonary disease with (acute) lower respiratory infection; J96.11 Chronic respiratory failure with hypoxia; I69.951 Hemiplegia and hemiparesis following unspecified cerebrovascular disease affecting right dominant side; E03.9 Hypothyroidism, unspecified; E78.5 Hyperlipidemia, unspecified; F01.50 Vascular dementia, unspecified severity, without behavioral disturbance, psychotic disturbance, mood disturbance, and anxiety; F17.200 Nicotine dependence, unspecified, uncomplicated; G25.81 Restless legs syndrome; G47.33 Obstructive sleep apnea (adult) (pediatric); G89.29 Other chronic pain; I25.10 Atherosclerotic heart disease of native coronary artery without angina pectoris; I25.2 Old myocardial infarction; I45.10 Unspecified right bundle-branch block; I48.2 Chronic atrial fibrillation; I50.33 Acute on chronic diastolic (congestive) heart failure; I73.9 Peripheral vascular disease, unspecified; G43.909 Migraine, unspecified, not intractable, without status migrainosus; J84.10 Pulmonary fibrosis, unspecified; K21.9 Gastro-esophageal reflux disease without esophagitis; R04.0 Epistaxis; T38.0X5A Adverse effect of glucocorticoids and synthetic analogues, initial encounter; M54.5 Low back pain; R00.1 Bradycardia, unspecified; R10.9 Unspecified abdominal pain; T50.995A Adverse effect of other drugs, medicaments and biological substances, initial encounter; D72.829 Elevated white blood cell count, unspecified; M19.90 Unspecified osteoarthritis, unspecified site; E66.9 Obesity, unspecified; I65.21 Occlusion and stenosis of right carotid artery; K58.9 Irritable bowel syndrome, unspecified; S30.1XXA Contusion of abdominal wall, initial encounter; Z68.26 Body mass index [BMI] 26.0-26.9, adult; Z79.01 Long term (current) use of anticoagulants; Z79.02 Long term (current) use of antithrombotics/antiplatelets; Z79.899 Other long term (current) drug therapy; Z79.52 Long term (current) use of systemic steroids; Z99.81 Dependence on supplemental oxygen; Z95.5 Presence of coronary angioplasty implant and graft; Z90.710 Acquired absence of both cervix and uterus; Z88.0 Allergy status to penicillin; Z88.8 Allergy status to other drugs, medicaments and biological substances; Z87.440 Personal history of urinary (tract) infections; Z87.01 Personal history of pneumonia (recurrent); Z85.42 Personal history of malignant neoplasm of other parts of uterus; Z85.528 Personal history of other malignant neoplasm of kidney; Z91.040 Latex allergy status; Z90.49 Acquired absence of other specified parts of digestive tract; Z82.49 Family history of ischemic heart disease and other diseases of the circulatory system; Z82.5 Family history of asthma and other chronic lower respiratory diseases; Y92.009 Unspecified place in unspecified non-institutional (private) residence as the place of occurrence of the external cause
CPT/HCPCS: 36415; 71046; 74176; 80048; 80053; 83880; 85025; 85610; 85730; 93005; 96374; 96375; 99284

== ENCOUNTER 2017-12-20 21:11 | Inpatient (IN) | payer MEDICARE, OTHER ==
--- NOTE | 2017-12-20 21:52 | XR ---
EXAMINATION TYPE: XR chest 2V DATE OF EXAM: 12/20/2017 COMPARISON: Chest x-ray from 4 days ago and older studies HISTORY: History of CHF with chest pain. TECHNIQUE: Frontal and lateral views of the chest are obtained. FINDINGS: There is chronic interstitial changes bilaterally is slightly more prominent opacity right upper lung redemonstrated. No new focal airspace opacity, pleural effusion, or pneumothorax is seen. The cardiac silhouette size is stable and enlarged with atherosclerotic change in the aortic knob. The osseous structures are demineralized. IMPRESSION: Chronic parenchymal changes bilaterally with possible residual acute infiltrate right up per lung. No new infiltrate is seen. No significant change from most recent x-ray.
[2017-12-20 23:13] LABS: Anisocytosis Slight; Basophils % (A) 0 %; Eosinophils # (A) 0.1 k/uL (0-0.7); Eosinophils % (A) 1 %; HCT 38.8 % (34.0-46.0); HGB 12.3 gm/dL (11.4-16.0); Hypochromasia Moderate; Lymphocytes % (A) 20 %; MCH 26.9 pg (25.0-35.0); MCHC 31.8 g/dL (31.0-37.0); MCV 84.7 fL (80.0-100.0); Mean Platelet Volume 7.2; Monocytes # (A) 0.7 k/uL (0-1.0); Monocytes % (A) 7 %; Neutrophils % (A) 70 %; Platelet Count 283 k/uL (150-450); RBC 4.58 m/uL (3.80-5.40); RDW 19.3 % (11.5-15.5)
[2017-12-20] MEDS ORDERED: NITROGLYCERIN OINT 1 INCH/GM PACKET TOPICAL STA (23:18)
[2017-12-20] MEDS ORDERED: ASPIRIN 81 MG PO STA (23:18)
[2017-12-20] MEDS ORDERED: MORPHINE SULFATE 4 MG/ML SYRINGE IVP STA (23:18)
--- NOTE | 2017-12-20 23:24 | ED ---
Chest Pain HPI - General Chief Complaint: Chest Pain Stated Complaint: Chest Pain Time Seen by Provider: 12/20/17 23:10 Source: patient Mode of arrival: wheelchair Limitations: no limitations - History of Present Illness Initial Comments: 67 years old female comes in now with the chest pain chest pain started about 8: 30 today chest pain right now is 8/10 she does have a history of extensive ischemic heart disease had [address] she see Dr[address] Bernal today and she is scheduled for a cardiac cath on a December. She is also short winded and chest pain gets worse with a deep breaths and she also had a mild fever. Complaining about some epigastric pain no frequency or dysuria dysuria no symptoms of TIA or CVA - Related Data Home Medications Medication Instructions Recorded Confirmed PARoxetine HCL 30 mg PO HS 07/02/14 12/20/17 OXcarbazepine [Trileptal] 150 mg PO HS 11/04/14 12/20/17 Melatonin 3 mg PO HS 03/05/16 12/20/17 Atorvastatin Calcium [Lipitor] 20 mg PO DAILY@1700 06/13/17 12/20/17 Calcium Polycarbophil [Fibercon] 1,250 mg PO DAILY@1700 06/13/17 12/20/17 Clopidogrel Bisulfate [Plavix] 75 mg PO DAILY 06/13/17 12/20/17 Ferrous Sulfate [Iron (65 MG 325 mg PO DAILY@1700 06/13/17 12/20/17 Elemental)] Furosemide [Lasix] 40 mg PO DAILY@0600 06/13/17 12/20/17 Levothyroxine Sodium [Synthroid] 100 mcg PO DAILY@0600 06/13/17 12/20/17 Lurasidone HCl [Latuda] 20 mg PO DAILY 06/13/17 12/20/17 Magnesium Oxide [Mag-Ox] 400 mg PO DAILY@1700 06/13/17 12/20/17 Montelukast [Singulair] 10 mg PO HS 06/13/17 12/20/17 Pantoprazole Sodium [Protonix] 40 mg PO DAILY 06/13/17 12/20/17 Potassium Chloride [Klor-Con 10] 10 meq PO DAILY@1700 06/13/17 12/20/17 Fluticasone/Vilanterol [Breo 1 puff INHALATION RT-DAILY 06/14/17 12/20/17 Ellipta 100-25 Mcg Inhaler] Tiotropium [place] [Spiriva] 1 cap INHALATION RT-DAILY 06/14/17 12/20/17 HYDROcodone/APAP 5-325MG [[place] 1 tab PO Q4HR PRN 12/16/17 12/20/17 5-325] Lactose-Reduced Food [Ensure Plus] 240 ml PO BID@0800,1700 12/16/17 12/20/17 Multivitamins, Thera [Multivitamin 1 tab PO DAILY@1700 12/16/17 12/20/17 (formulary)] Previous Rx's Medication Instructions Recorded Rivaroxaban [Xarelto] 15 mg PO W/SUPPER #30 tab 06/16/17 Albuterol Nebulized [Ventolin 2.5 mg INHALATION RT-QID nebu 12/01/17 Nebulized] Nitroglycerin Sl Tabs [Nitrostat] 0.4 mg SUBLINGUAL Q5M PRN tab 12/01/17 Polyethylene Glycol 3350 [Miralax] 17 gm PO HS powd.pack 12/01/17 Amiodarone [Cordarone] 200 mg PO DAILY tab 12/10/17 Docusate [Colace] 100 mg PO BID@0800,1700 PRN #0 12/17/17 Metoprolol Tartrate [Lopressor] 25 mg PO BID #60 tab 12/17/17 Allergies Allergy/AdvReac Type Severity Reaction Status Date / Time albuterol Allergy Rash/Hives Verified 12/20/17 22:58 latex Allergy Rash/Hives Verified 12/20/17 22:58 Penicillins Allergy Unknown Verified 12/20/17 22:58 Childhood Review of Systems ROS Statement: Those systems with pertinent positive or pertinent negative responses have been documented in the HPI. ROS Other: All systems not noted in ROS Statement are negative. EKG Findings - EKG Comments: EKG Findings:: EKG is normal sinus rhythm with the sinus arrhythmia ventricular rate is 70 RI interval is 158 QRS duration is 112 QT/QTc is 424/457 review of this EKG reveals right bundle branch block no STEMI noticed Past Medical History Past Medical History: Atrial Fibrillation, Asthma, Coronary Artery Disease (CAD) , Cancer, COPD, CVA/TIA, Eye Disorder, GERD/Reflux, Hyperlipidemia, Hypertension , Memory Impairment, Myocardial Infarction ([place]), Osteoarthritis (OA), Respiratory Disorder, Sleep Apnea/CPAP/BIPAP, Thyroid Disorder, Vascular Disorder Additional Past Medical History / Comment(s): febrile, recent UTI, hypotensive. Other hx: Home O2 prn but ATC lately, CVA x 3 with R arm and R leg weakness , vascular dementia, R trigeminal neuralgia, R eye astigmatism, occluded JOSE ALEJANDRO, PVD, past htn but b/ps running low now, IBS, diarrhea/constipation, chronic abdominal pain, chronic back pain, migraines-none recently, one hip higher, RLS , tremors, CHANDU without device (unable to tolerate), UTIs, hypothyroid, nasopharyngeal inflammatory mass, TMJ yrs ago, R kidney cancer and uterine cancer with surgeries. Last Myocardial Infarction Date:: 11/03/14 History of Any Multi-Drug Resistant Organisms: None Reported, C-DIFF Date of last positivie culture/infection: 2012 Past Surgical History: Adenoidectomy, Bladder Surgery, Cholecystectomy, Ear Surgery, Heart Catheterization With Stent, Hysterectomy, Orthopedic Surgery, Tonsillectomy Additional Past Surgical History / Comment(s): 11/28/14 PTCA with stents, left CAROTID ENDARTERECTOMY, MULTIPLE BILATERAL STENTS IN LOWER EXTREMITIES, R elbow surgery as a child, R ear surgery for blockage, bilateral ankle arthroscopies, bilateral knee arthroscopies, deviated septal surgery, L great toe pinned, colonoscopies/benign polypectomy, R nephrectomy and partial bladder removal, skin lesion from nose. Past Anesthesia/Blood Transfusion Reactions: Motion Sickness Date of Last Stent Placement:: 10/2014 Past Psychological History: Bipolar Smoking Status: Former smoker Past Alcohol Use History: None Reported Past Drug Use History: None Reported - Past Family History Mother Family Medical History: COPD Additional Family Medical History / Comment(s): Mother is . She from respiratory failure. Father Family Medical History: Coronary Artery Disease (CAD), Myocardial Infarction ([place] ) Additional Family Medical History / Comment(s): Father had gout General Exam - General Exam Comments Initial Comments: General: The patient is awake and alert, in mild distress and quite anxious Skin: Skin is warm and dry and no rashes or lesions are noted. Eye: Pupils are equal, round and reactive to light, extra-ocular movements are intact; there is normal conjunctiva bilaterally. Ears, nose, mouth and throat: There are moist mucous membranes and no oral lesions. Neck: The neck is supple, there is no tenderness or JVD. Cardiovascular: There is a regular rate and rhythm. No murmur, rub or gallop is appreciated. Respiratory: To auscultation bilateral, no wheezing no rhonchi no distress respiratory [place] noticed Gastrointestinal: Soft, non-distended, non-tender abdomen without masses or organomegaly noted. There is no rebound or guarding present. Bowel sounds are unremarkable. Back: There is no tenderness to palpation in the midline. There is no obvious deformity. Musculoskeletal: Normal ROM, no tenderness, There is no pedal edema. There is no calf tenderness or swelling. No cords were appreciated. Neurological: CN II-XII intact, Cranial nerves III through XII are intact. There are no obvious motor or sensory deficits. Coordination appears grossly intact. Speech is normal. Psychiatric: Cooperative, appropriate mood & affect, normal judgment. Limitations: no limitations Course Vital Signs 12/20/17 12/20/17 21:12 23:10 Temperature 100.6 F H Pulse Rate 73 Pulse Rate [ 72 Clothing Sorter ] Respiratory 18 Rate Blood Pressure 116/80 O2 Sat by Pulse 95 Oximetry Plan reassessment noticed white count is 10 d-dimer is unremarkable INR is unremarkable troponin is normal chest x-ray showed some infiltrate considering her history of coronary artery disease or ischemic heart disease having [address] and persistent chest pain and [facility] she be admitted to Dr. Kelly he and cardiology be consulted 50 sets of cardiac markers she be observed overnight 24 hours Disposition Clinical Impression: Chest pain, Pneumonia Disposition: ADMITTED IP TO THIS HOSP Condition: Good Referrals: Lolita Fraga DO [Primary Care Provider] - 1-2 days
[2017-12-20 23:26] LABS: Albumin 3.6 g/dL (3.5-5.0); Calcium 9.1 mg/dL (8.4-10.2); Magnesium 1.9 mg/dL (1.6-2.3); Potassium 4.5 mmol/L (3.5-5.1); Total Bilirubin 0.9 mg/dL (0.2-1.3); Total Protein 5.8 g/dL (6.3-8.2)
[2017-12-20 23:34] LABS: Creatine Kinase <20 U/L (30-135)
[2017-12-20] MEDS: SODIUM CHLORIDE 0.9% 1,000 ML IV STA (23:37)
[2017-12-20 23:39] LABS: Amylase 42 U/L (30-110); Lipase 129 U/L (23-300)
[2017-12-20 23:47] LABS: Creatine Kinase MB 0.6 ng/mL (0.0-2.4)
[2017-12-20 23:58] LABS: INR 1.2 (<1.2); Partial Thromboplastin Time 25.6 sec (22.0-30.0); Prothrombin Time 11.3 sec (9.0-12.0)
[2017-12-21] MEDS ORDERED: NITROGLYCERIN SL TABS 0.4 MG TAB SUBLINGUAL PRN ×2 (00:38→00:43)
[2017-12-21] MEDS ORDERED: MORPHINE SULFATE 4 MG/ML SYRINGE IVP PRN (00:38)
[2017-12-21] MEDS: HYDROcodone/APAP 5-325MG 1 EACH TAB PO PRN ×4 (03:52→18:52)
[2017-12-21] MEDS: LEVOTHYROXINE 100 MCG TAB PO SCH (05:25)
[2017-12-21] MEDS ORDERED: FUROSEMIDE 40 MG TAB PO SCH (06:00)
[2017-12-21 07:23] LABS: Creatine Kinase <20 U/L (30-135)
[2017-12-21 07:35] LABS: Creatine Kinase MB 0.7 ng/mL (0.0-2.4)
[2017-12-21] MEDS ORDERED: DOCUSATE 100 MG CAP PO PRN (08:00)
[2017-12-21] MEDS ORDERED: SYMBICORT 80-4.5 MCG INHALER INHALATION SCH (08:00)
[2017-12-21] MEDS ORDERED: NON-FORMULARY DRUG (Lactose-Reduced Food [Ensure Plus] 240 ML) PO SCH (08:00)
[2017-12-21] MEDS ORDERED: IPRATROPIUM 0.5 MG/2.5 ML NEBU INHALATION SCH (08:00)
--- NOTE | 2017-12-21 08:34 | P.CRDCN ---
History of Present Illness Consult date: 12/21/17 Chief complaint: Chest pain History of present illness: This is a pleasant 67-year-old female patient who I see in the office as an outpatient with a known history of coronary artery disease and prior stenting of the LAD several years ago, paroxysmal atrial fibrillation, chronic obstructive pulmonary disease, history of stroke, and peripheral arterial disease presented to the hospital complaining of chest discomfort. I saw the patient in the office yesterday and she was experiencing chest discomfort concerning for angina and I did schedule the patient to undergo a heart catheterization as an outpatient but she ended coming to the emergency room was chest discomfort. The cardiac enzymes were checked and came in to be unremarkable. The EKG showed sinus rhythm was nonspecific changes. Currently the patient is pain-free. I am going to schedule her to undergo a heart catheterization in the next 24 hours. Past Medical History Past Medical History: Atrial Fibrillation, Asthma, Coronary Artery Disease (CAD) , Cancer, COPD, CVA/TIA, Eye Disorder, GERD/Reflux, Hyperlipidemia, Hypertension , Memory Impairment, Myocardial Infarction ([place]), Osteoarthritis (OA), Respiratory Disorder, Sleep Apnea/CPAP/BIPAP, Thyroid Disorder, Vascular Disorder Additional Past Medical History / Comment(s): febrile, recent UTI, hypotensive. Other hx: Home O2 prn but ATC lately, CVA x 3 with R arm and R leg weakness , vascular dementia, R trigeminal neuralgia, R eye astigmatism, occluded JOSE ALEJANDRO, PVD, past htn but b/ps running low now, IBS, diarrhea/constipation, chronic abdominal pain, chronic back pain, migraines-none recently, one hip higher, RLS , tremors, CHANDU without device (unable to tolerate), UTIs, hypothyroid, nasopharyngeal inflammatory mass, TMJ yrs ago, R kidney cancer and uterine cancer with surgeries. Last Myocardial Infarction Date:: 11/03/14 History of Any Multi-Drug Resistant Organisms: None Reported, C-DIFF Date of last positivie culture/infection: 2012 MDRO Source:: c-diff Past Surgical History: Adenoidectomy, Bladder Surgery, Cholecystectomy, Ear Surgery, Heart Catheterization With Stent, Hysterectomy, Orthopedic Surgery, Tonsillectomy Additional Past Surgical History / Comment(s): 11/28/14 PTCA with stents, left CAROTID ENDARTERECTOMY, MULTIPLE BILATERAL STENTS IN LOWER EXTREMITIES, R elbow surgery as a child, R ear surgery for blockage, bilateral ankle arthroscopies, bilateral knee arthroscopies, deviated septal surgery, L great toe pinned, colonoscopies/benign polypectomy, R nephrectomy and partial bladder removal, skin lesion from nose. 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 Pt lives with anam who is also her legal guardian. Uses cane at home and a walker on occasion, home O2 prn-pt lately using ATC. Has generally stopped tobacco use over the last several years but does occasionally smoke. Lives with a daughter who is an active smoker. Patient has a history of alcohol use in her youth no recent alcohol or recreational drug use. No experience. No international travel. No Animal exposures at this time Smoking Status: Former smoker Past Alcohol Use History: None Reported Additional Past Alcohol Use History / Comment(s): Pt started smoking in 1963 and quit in 2008. Past Drug Use History: None Reported - Past Family History Mother Family Medical History: COPD Additional Family Medical History / Comment(s): Mother is . She from respiratory failure. Father Family Medical History: Coronary Artery Disease (CAD), Myocardial Infarction ([place] ) Additional Family Medical History / Comment(s): Father had gout Medications and Allergies Home Medications Medication Instructions Recorded Confirmed Type PARoxetine HCL 30 mg PO HS 07/02/14 12/21/17 History OXcarbazepine [Trileptal] 150 mg PO HS 11/04/14 12/21/17 History Melatonin 3 mg PO HS 03/05/16 12/21/17 History Atorvastatin Calcium [Lipitor] 20 mg PO DAILY@1700 06/13/17 12/21/17 History Calcium Polycarbophil [Fibercon] 1,250 mg PO DAILY@1700 06/13/17 12/21/17 History Clopidogrel Bisulfate [Plavix] 75 mg PO DAILY 06/13/17 12/21/17 History Ferrous Sulfate [Iron (65 MG 325 mg PO DAILY@1700 06/13/17 12/21/17 History Elemental)] Furosemide [Lasix] 40 mg PO DAILY@0600 06/13/17 12/21/17 History Levothyroxine Sodium [Synthroid] 100 mcg PO DAILY@0600 06/13/17 12/21/17 History Lurasidone HCl [Latuda] 20 mg PO DAILY 06/13/17 12/21/17 History Magnesium Oxide [Mag-Ox] 400 mg PO DAILY@1700 06/13/17 12/21/17 History Montelukast [Singulair] 10 mg PO HS 06/13/17 12/21/17 History Pantoprazole Sodium [Protonix] 40 mg PO DAILY 06/13/17 12/21/17 History Potassium Chloride [Klor-Con 10] 10 meq PO DAILY@1700 06/13/17 12/21/17 History Fluticasone/Vilanterol [Breo 1 puff INHALATION RT-DAILY 06/14/17 12/21/17 History Ellipta 100-25 Mcg Inhaler] Tiotropium [place] [Spiriva] 1 cap INHALATION RT-DAILY 06/14/17 12/21/17 History Rivaroxaban [Xarelto] 15 mg PO W/SUPPER #30 tab 06/16/17 12/21/17 Rx Albuterol Nebulized [Ventolin 2.5 mg INHALATION RT-QID nebu 12/01/17 12/21/17 Rx Nebulized] Nitroglycerin Sl Tabs [Nitrostat] 0.4 mg SUBLINGUAL Q5M PRN tab 12/01/17 Rx Polyethylene Glycol 3350 [Miralax] 17 gm PO HS powd.pack 12/01/17 12/21/17 Rx Amiodarone [Cordarone] 200 mg PO DAILY tab 12/10/17 12/21/17 Rx HYDROcodone/APAP 5-325MG [[place] 1 tab PO Q4HR PRN 12/16/17 12/21/17 History 5-325] Lactose-Reduced Food [Ensure Plus] 240 ml PO BID@0800,1700 12/16/17 12/21/17 History Multivitamins, Thera [Multivitamin 1 tab PO DAILY@1700 12/16/17 12/21/17 History (formulary)] Docusate [Colace] 100 mg PO BID@0800,1700 PRN #0 12/17/17 12/21/17 Rx Metoprolol Tartrate [Lopressor] 25 mg PO BID #60 tab 12/17/17 12/21/17 Rx Allergies Allergy/AdvReac Type Severity Reaction Status Date / Time albuterol Allergy Rash/Hives Verified 12/21/17 02:15 latex Allergy Rash/Hives Verified 12/21/17 02:15 Penicillins Allergy Unknown Verified 12/21/17 02:15 Childhood Physical Exam Vitals: Vital Signs Temp Pulse Pulse Pulse Resp BP BP 12/21/17 08:00 97.6 F 94 18 142/70 12/21/17 03:39 98.0 F 66 16 127/65 12/21/17 03:36 72 16 12/21/17 01:40 98.5 F 69 16 123/54 12/20/17 23:10 72 12/20/17 21:12 100.6 F H 73 18 116/80 Pulse Ox 12/21/17 08:00 94 L 12/21/17 03:39 94 L 12/21/17 03:36 12/21/17 01:40 95 12/20/17 23:10 12/20/17 21:12 95 Intake and Output 12/20/17 12/21/17 12/21/17 22:59 06:59 14:59 Intake Total 800 Balance 800 Intake: Amount of Fluid Infused ( 500 ml) Intake, IV Titration 200 Amount Sodium Chloride 0.9% 1, 200 000 ml @ 50 mls/hr IV . Q20H STA Rx#:[id number] Oral 100 Other: Voiding Method Bedside Commode # Voids 2 Weight 70.76 kg 69.9 kg - Constitutional General appearance: no acute distress - Respiratory Respiratory: bilateral: CTA - Cardiovascular Rhythm: regular Heart sounds: normal: S1, S2 Results 12/20/17 22:54 12/20/17 22:54 Cardiac Enzymes 12/20/17 12/20/17 12/21/17 Range/Units 22:54 22:54 06:17 AST 24 (14-36) U/L CK-MB (CK-2) 0.6 0.7 (0.0-2.4) ng/mL Troponin I 0.020 0.020 (0.000-0.034) ng/mL Coagulation 12/20/17 Range/Units 22:54 PT 11.3 (9.0-12.0) sec APTT 25.6 (22.0-30.0) sec CBC 12/20/17 Range/Units 22:54 WBC 10.0 (3.8-10.6) k/uL RBC 4.58 (3.80-5.40) m/uL Hgb 12.3 (11.4-16.0) gm/dL Hct 38.8 (34.0-46.0) % Plt Count 283 (150-450) k/uL Comprehensive Metabolic Panel 12/20/17 Range/Units 22:54 Sodium 135 L (137-145) mmol/L Potassium 4.5 (3.5-5.1) mmol/L Chloride 99 (98-107) mmol/L Carbon Dioxide 24 (22-30) mmol/L BUN 17 (7-17) mg/dL Creatinine 0.96 (0.52-1.04) mg/dL Glucose 96 (74-99) mg/dL Calcium 9.1 (8.4-10.2) mg/dL AST 24 (14-36) U/L ALT 26 (9-52) U/L Alkaline Phosphatase 72 (38-126) U/L Total Protein 5.8 L (6.3-8.2) g/dL Albumin 3.6 (3.5-5.0) g/dL Current Medications Generic Name Dose Route Start Last Admin Trade Name Freq PRN Reason Stop Dose Admin Hydrocodone Bitart/Acetaminophen 1 each 12/21/17 00:43 12/21/17 03:52 [place] 5-325 PO 1 each Q4HR PRN Administration Pain Albuterol Sulfate 2.5 mg 12/21/17 08:00 Ventolin Nebulized INHALATION RT-QID [facility] Amiodarone HCl 200 mg 12/21/17 09:00 Cordarone PO DAILY [facility] Aspirin 325 mg 12/21/17 09:00 Aspirin PO DAILY [facility] Atorvastatin Calcium 20 mg 12/21/17 17:00 Lipitor PO DAILY@1700 [facility] Budesonide/Formoterol Fumarate 2 puff 12/21/17 08:00 Symbicort 80-4.5 Mcg Inhaler INHALATION RT-BID [facility] Calcium Polycarbophil 1,250 mg 12/21/17 17:00 Fibercon PO DAILY@1700 [facility] Clopidogrel Bisulfate 75 mg 12/21/17 09:00 Plavix PO DAILY [facility] Docusate Sodium 100 mg 12/21/17 08:00 Colace PO BID@0800,1700 PRN Constipation Ferrous Sulfate 325 mg 12/21/17 17:00 Feosol PO DAILY@1700 [facility] Furosemide 40 mg 12/21/17 06:00 12/21/17 05:26 Lasix PO 40 mg DAILY@0600 [facility] Administration Sodium Chloride 1,000 mls @ 50 mls/hr 12/20/17 23:18 12/20/17 23:37 Saline 0.9% IV 12/21/17 19:17 50 mls/hr .Q20H STA Administration Ipratropium [place] 0.5 mg 12/21/17 08:00 Atrovent Nebulized INHALATION RT-QID [facility] Levothyroxine Sodium 100 mcg 12/21/17 06:00 12/21/17 05:25 Synthroid PO 100 mcg DAILY@0600 [facility] Administration Lurasidone HCl 20 mg 12/21/17 09:00 Latuda PO DAILY [facility] Magnesium Oxide 400 mg 12/21/17 17:00 Mag-Ox PO DAILY@1700 [facility] Melatonin 3 mg 12/21/17 21:00 Melatonin PO HS [facility] Metoprolol Tartrate 25 mg 12/21/17 09:00 Lopressor PO BID [facility] Montelukast Sodium 10 mg 12/21/17 21:00 Singulair PO HS [facility] Morphine Sulfate 2 mg 12/21/17 00:38 Morphine Sulfate (Inj) IVP Q5M PRN Chest Pain Multivitamins 1 each 12/21/17 17:00 Theragran PO DAILY@1700 [facility] Nitroglycerin 0.4 mg 12/21/17 00:38 Nitrostat SUBLINGUAL Q5M PRN Chest Pain Oxcarbazepine 150 mg 12/21/17 21:00 Trileptal PO HS [facility] Pantoprazole Sodium 40 mg 12/21/17 07:30 Protonix PO AC-BRKFST [facility] Paroxetine HCl 30 mg 12/21/17 21:00 Paxil PO HS [facility] Polyethylene Glycol 17 gm 12/21/17 21:00 Miralax PO HS [facility] Potassium Chloride 10 meq 12/21/17 17:00 K-Dur 10 PO DAILY@1700 [facility] Intake and Output 12/20/17 12/21/17 12/21/17 22:59 06:59 14:59 Intake Total 800 Balance 800 Intake: Amount of Fluid Infused ( 500 ml) Intake, IV Titration 200 Amount Sodium Chloride 0.9% 1, 200 000 ml @ 50 mls/hr IV . Q20H STA Rx#:[id number] Oral 100 Other: Voiding Method Bedside Commode # Voids 2 Weight 70.76 kg 69.9 kg 12/20/17 22:54 12/20/17 22:54 Assessment and Plan Assessment: Assessment #1 intermittent episodes of chest discomfort concerning for angina #2 known coronary artery disease and prior stenting of the LAD #3 peripheral arterial disease and status post bilateral iliac stenting #4 paroxysmal atrial fibrillation #5 multiple comorbid conditions Plan #1 the patient was ruled out for acute coronary event #2 I am proceeding with a heart catheterization next 24 hours Thank you for allowing us participate in her care
[2017-12-21] MEDS: METOPROLOL TARTRATE 25 MG TAB PO SCH ×2 (08:40→20:09)
[2017-12-21] MEDS: AMIODARONE 200 MG TAB PO SCH (08:40)
[2017-12-21] MEDS: PANTOPRAZOLE 40 MG TABLET PO SCH (08:40)
[2017-12-21] MEDS: LURASIDONE 40 MG TAB PO SCH (08:40)
[2017-12-21] MEDS: ASPIRIN 325 MG TAB PO SCH (08:40)
[2017-12-21] MEDS ORDERED: CLOPIDOGREL 75 MG TAB PO SCH (09:00)
[2017-12-21] MEDS ORDERED: SODIUM CHLORIDE 0.9% 1,000 ML in EMPTY BAG 1 BAG IV ONE (09:34)
[2017-12-21] MEDS ORDERED: ALPRAZolam 0.5 MG TAB PO PRN (09:34)
[2017-12-21] MEDS ORDERED: ALPRAZolam 0.25 MG TAB PO PRN (09:34)
[2017-12-21] MEDS: BREO ELLIPTA INHALATION SCH (09:43)
[2017-12-21] MEDS: ALBUTEROL NEBULIZED 2.5 MG/3 ML INHALATION SCH ×4 (09:43→19:35)
[2017-12-21] MEDS: SPIRIVA 18 MCG INHALATION SCH (09:43)
[2017-12-21] MEDS: ISOSORBIDE MONONITRATE 20 MG TAB PO SCH ×2 (10:37→19:36)
[2017-12-21] MEDS ORDERED: SODIUM CHLORIDE 0.9% 250 ML IV ONE (11:48)
[2017-12-21] MEDS: SODIUM CHLORIDE 0.9% 1,000 ML IV STA (11:50)
[2017-12-21 12:19] LABS: Creatine Kinase <20 U/L (30-135)
--- NOTE | 2017-12-21 12:31 | P.HPIM ---
History of Present Illness H&P Date: 12/21/17 Chief Complaint: Chest pain This is a 67-year-old female with very complex past medical history noted below significant for underlying coronary artery disease and presented to the emergency room with chest pain. Patient is a very poor historian given her underlying cognitive impairment. Apparently she was seen by her assembler motor vehicle in the office yesterday for the same complaint and was supposed to be scheduled for left heart catheterization. Patient presented to the emergency room with what she describes as chest pain and right side pain and back pain. Patient said that her pain is mostly in the middle of her chest with no radiation. She is not having any shortness of breath. She is slightly hypotensive when I saw her today and her systolic blood pressure is in the 80s. She is not complaining of dizziness or lightheadedness. She was started on Imdur this morning and got her first dose of 20 mg. No issues otherwise. 12 leads EKG showed no acute ischemic changes. Troponin level was within normal range. Review of Systems Review of system: 14 points review of systems were obtained and were negative except to what were mentioned in the HPI. Past Medical History Past Medical History: Atrial Fibrillation, Asthma, Coronary Artery Disease (CAD) , Cancer, COPD, CVA/TIA, Eye Disorder, GERD/Reflux, Hyperlipidemia, Hypertension , Memory Impairment, Myocardial Infarction ([place]), Osteoarthritis (OA), Respiratory Disorder, Sleep Apnea/CPAP/BIPAP, Thyroid Disorder, Vascular Disorder Additional Past Medical History / Comment(s): febrile, recent UTI, hypotensive. Other hx: Home O2 prn but ATC lately, CVA x 3 with R arm and R leg weakness , vascular dementia, R trigeminal neuralgia, R eye astigmatism, occluded JOSE ALEJANDRO, PVD, past htn but b/ps running low now, IBS, diarrhea/constipation, chronic abdominal pain, chronic back pain, migraines-none recently, one hip higher, RLS , tremors, CHANDU without device (unable to tolerate), UTIs, hypothyroid, nasopharyngeal inflammatory mass, TMJ yrs ago, R kidney cancer and uterine cancer with surgeries. Last Myocardial Infarction Date:: 11/03/14 History of Any Multi-Drug Resistant Organisms: None Reported, C-DIFF Date of last positivie culture/infection: 2012 MDRO Source:: c-diff Past Surgical History: Adenoidectomy, Bladder Surgery, Cholecystectomy, Ear Surgery, Heart Catheterization With Stent, Hysterectomy, Orthopedic Surgery, Tonsillectomy Additional Past Surgical History / Comment(s): 11/28/14 PTCA with stents, left CAROTID ENDARTERECTOMY, MULTIPLE BILATERAL STENTS IN LOWER EXTREMITIES, R elbow surgery as a child, R ear surgery for blockage, bilateral ankle arthroscopies, bilateral knee arthroscopies, deviated septal surgery, L great toe pinned, colonoscopies/benign polypectomy, R nephrectomy and partial bladder removal, skin lesion from nose. Past Anesthesia/Blood Transfusion Reactions: Motion Sickness Date of Last Stent Placement:: 10/2014 Past Psychological History: Bipolar Additional Psychological History / Comment(s): HAS A [employer] THROUGH [facility]. Pt lives with anam who is also her legal guardian. Uses cane at home and a walker on occasion, home O2 prn-pt lately using ATC. Has generally stopped tobacco use over the last several years but does occasionally smoke. Lives with a daughter who is an active smoker. Patient has a history of alcohol use in her youth no recent alcohol or recreational drug use. No experience. No international travel. No Animal exposures at this time Smoking Status: Former smoker Past Alcohol Use History: None Reported Additional Past Alcohol Use History / Comment(s): Pt started smoking in 1963 and quit in 2008. Past Drug Use History: None Reported - Past Family History Mother Family Medical History: COPD Additional Family Medical History / Comment(s): Mother is . She from respiratory failure. Father Family Medical History: Coronary Artery Disease (CAD), Myocardial Infarction ([place] ) Additional Family Medical History / Comment(s): Father had gout Medications and Allergies Home Medications Medication Instructions Recorded Confirmed Type PARoxetine HCL 30 mg PO HS 07/02/14 12/21/17 History OXcarbazepine [Trileptal] 150 mg PO HS 11/04/14 12/21/17 History Melatonin 3 mg PO HS 03/05/16 12/21/17 History Atorvastatin Calcium [Lipitor] 20 mg PO DAILY@1700 06/13/17 12/21/17 History Calcium Polycarbophil [Fibercon] 1,250 mg PO DAILY@1700 06/13/17 12/21/17 History Clopidogrel Bisulfate [Plavix] 75 mg PO DAILY 06/13/17 12/21/17 History Ferrous Sulfate [Iron (65 MG 325 mg PO DAILY@1700 06/13/17 12/21/17 History Elemental)] Furosemide [Lasix] 40 mg PO DAILY@0600 06/13/17 12/21/17 History Levothyroxine Sodium [Synthroid] 100 mcg PO DAILY@0600 06/13/17 12/21/17 History Lurasidone HCl [Latuda] 20 mg PO DAILY 06/13/17 12/21/17 History Magnesium Oxide [Mag-Ox] 400 mg PO DAILY@1700 06/13/17 12/21/17 History Montelukast [Singulair] 10 mg PO HS 06/13/17 12/21/17 History Pantoprazole Sodium [Protonix] 40 mg PO DAILY 06/13/17 12/21/17 History Potassium Chloride [Klor-Con 10] 10 meq PO DAILY@1700 06/13/17 12/21/17 History Fluticasone/Vilanterol [Breo 1 puff INHALATION RT-DAILY 06/14/17 12/21/17 History Ellipta 100-25 Mcg Inhaler] Tiotropium [place] [Spiriva] 1 cap INHALATION RT-DAILY 06/14/17 12/21/17 History Rivaroxaban [Xarelto] 15 mg PO W/SUPPER #30 tab 06/16/17 12/21/17 Rx Albuterol Nebulized [Ventolin 2.5 mg INHALATION RT-QID nebu 12/01/17 12/21/17 Rx Nebulized] Nitroglycerin Sl Tabs [Nitrostat] 0.4 mg SUBLINGUAL Q5M PRN tab 12/01/17 Rx Polyethylene Glycol 3350 [Miralax] 17 gm PO HS powd.pack 12/01/17 12/21/17 Rx Amiodarone [Cordarone] 200 mg PO DAILY tab 12/10/17 12/21/17 Rx HYDROcodone/APAP 5-325MG [[place] 1 tab PO Q4HR PRN 12/16/17 12/21/17 History 5-325] Lactose-Reduced Food [Ensure Plus] 240 ml PO BID@0800,1700 12/16/17 12/21/17 History Multivitamins, Thera [Multivitamin 1 tab PO DAILY@1700 12/16/17 12/21/17 History (formulary)] Docusate [Colace] 100 mg PO BID@0800,1700 PRN #0 12/17/17 12/21/17 Rx Metoprolol Tartrate [Lopressor] 25 mg PO BID #60 tab 12/17/17 12/21/17 Rx Allergies Allergy/AdvReac Type Severity Reaction Status Date / Time albuterol Allergy Rash/Hives Verified 12/21/17 02:15 latex Allergy Rash/Hives Verified 12/21/17 02:15 Penicillins Allergy Unknown Verified 12/21/17 02:15 Childhood Physical Exam Vitals: Vital Signs Temp Pulse Pulse Pulse Resp BP BP 12/21/17 11:40 98.1 F 59 L 18 80/52 12/21/17 08:00 97.6 F 66 94 18 12/21/17 03:39 98.0 F 66 16 12/21/17 03:36 72 16 12/21/17 01:40 98.5 F 69 16 12/20/17 23:10 72 12/20/17 21:12 100.6 F H 73 18 116/80 BP Pulse Ox 12/21/17 11:40 76/48 94 L 12/21/17 08:00 142/70 94 L 12/21/17 03:39 127/65 94 L 12/21/17 03:36 12/21/17 01:40 123/54 95 12/20/17 23:10 12/20/17 21:12 95 Intake and Output 12/20/17 12/21/17 12/21/17 22:59 06:59 14:59 Intake Total 800 Balance 800 Intake: Amount of Fluid Infused ( 500 ml) Intake, IV Titration 200 Amount Sodium Chloride 0.9% 1, 200 000 ml @ 50 mls/hr IV . Q20H STA Rx#:[id number] Oral 100 Other: Voiding Method Bedside Commode Bedside Commode # Voids 1 1 Weight 70.76 kg 69.9 kg General: The patient is awake and alert, in no distress Eye: there is normal conjunctiva bilaterally. Neck: The neck is supple, there is no JVD. Cardiovascular: Normal S1-S2, no S3-S4, no murmurs. Respiratory: Lungs clear to auscultation bilaterally Gastrointestinal: Abdomen is soft, nontender Musculoskeletal: There is no pedal edema. Neurological:. Speech is normal. Skin: Skin is warm and dry Results CBC & Chem 7: 12/20/17 22:54 12/20/17 22:54 Labs: Abnormal Lab Results - Last 24 Hours (Table) 12/20/17 12/20/17 12/20/17 Range/Units 22:54 22:54 22:54 RDW 19.3 H (11.5-15.5) % INR (<1.2) Sodium 135 L (137-145) mmol/L Total Creatine Kinase <20 L (30-135) U/L Total Protein 5.8 L (6.3-8.2) g/dL 12/20/17 12/21/17 Range/Units 22:54 06:17 RDW (11.5-15.5) % INR 1.2 H (<1.2) Sodium (137-145) mmol/L Total Creatine Kinase <20 L (30-135) U/L Total Protein (6.3-8.2) g/dL Thrombosis Risk Factor Assmnt - Choose All That Apply Each Factor Represents 1 point: Heart failure (<1month) Each Risk Factor Represents 2 Points: Age 61-74 years Thrombosis Risk Factor Assessment Total Risk Factor Score: 3 Thrombosis Risk Factor Assessment Level: Moderate Risk Assessment and Plan Assessment: 1. Chest pain with typical and atypical features. 12-lead EKG showed no acute ischemic changes. Troponin was normal. Patient was seen and evaluated by cardiology. She is scheduled for left heart catheterization tomorrow. 2. Underlying chronic atrial fibrillation, maintained on amiodarone and metoprolol. 3. History of CVA/stroke 4. Diastolic heart failure: Patient appeared euvolemic on exam. 5. Large bruise involving the right abdominal wall, patient's hemoglobin is stable. Computed tomography scan of the abdomen last week with no he evidence of hematoma 6. Underlying COPD with no evidence of exacerbation 7. Chronic hypoxic respiratory failure on home O2 8. Hypothyroidism on Synthroid 9. History of coronary artery disease with cardiac stent 10. underlying vascular dementia 11. Severe peripheral vascular occlusive disease with multiple stent placement
[2017-12-21 12:33] LABS: Creatine Kinase MB 0.7 ng/mL (0.0-2.4); Troponin I 0.015 ng/mL (0.000-0.034)
[2017-12-21] MEDS ORDERED: RIVAROXABAN 15 MG TAB PO SCH (17:30)
[2017-12-21] MEDS: CALCIUM POLYCARBOPHIL 625 MG TAB PO SCH (17:39)
[2017-12-21] MEDS: MULTIVITAMINS, THERA 1 EACH TAB PO SCH (17:39)
[2017-12-21] MEDS: MAGNESIUM OXIDE 400 MG TAB PO SCH (17:39)
[2017-12-21] MEDS: POTASSIUM CHLORIDE ER 10 MEQ TAB.ER.PRT PO SCH (17:39)
[2017-12-21] MEDS: FERROUS SULFATE 325 MG TAB PO SCH (17:39)
[2017-12-21] MEDS: ATORVASTATIN 20 MG TAB PO SCH (17:39)
[2017-12-21] MEDS: PARoxetine 10 MG TAB PO SCH (20:09)
[2017-12-21] MEDS: OXcarbazepine 150 MG TAB PO SCH (20:09)
[2017-12-21] MEDS: MELATONIN 3 MG TABLET PO SCH (20:09)
[2017-12-21] MEDS: POLYETHYLENE GLYCOL 3350 17 GM POWD.PACK PO SCH (20:09)
[2017-12-21] MEDS: MONTELUKAST 10 MG TAB PO SCH (20:09)
[2017-12-22] MEDS: AMIODARONE 200 MG TAB PO SCH (06:40)
[2017-12-22] MEDS: LURASIDONE 40 MG TAB PO SCH (06:40)
[2017-12-22] MEDS: PANTOPRAZOLE 40 MG TABLET PO SCH (06:40)
[2017-12-22] MEDS: LEVOTHYROXINE 100 MCG TAB PO SCH (06:40)
[2017-12-22] MEDS: METOPROLOL TARTRATE 25 MG TAB PO SCH (06:41)
[2017-12-22] MEDS: ASPIRIN 325 MG TAB PO SCH (06:41)
[2017-12-22 07:06] LABS: Appearance,Urine Clear (Clear); Bilirubin,Urine Negative (Negative); Blood,Urine Negative (Negative); Color,Urine Light Yellow; Glucose,Urine (UA) Negative (Negative); Ketones,Urine Negative (Negative); Leukocyte Esterase,Urine Negative (Negative); Nitrite,Urine Negative (Negative); PH, Urine 7.5 (5.0-8.0); Protein,Urine Negative (Negative); Specific Gravity,Urine 1.004 (1.001-1.035); Urobilinogen,Urine <2.0 mg/dL (<2.0)
[2017-12-22] MEDS: SPIRIVA 18 MCG INHALATION SCH (07:12)
[2017-12-22] MEDS: ALBUTEROL NEBULIZED 2.5 MG/3 ML INHALATION SCH ×4 (07:12→20:20)
[2017-12-22] MEDS: BREO ELLIPTA INHALATION SCH (07:12)
[2017-12-22 07:46] LABS: Anisocytosis Slight; Basophils % (A) 0 %; Eosinophils # (A) 0.2 k/uL (0-0.7); Eosinophils % (A) 3 %; HCT 39.7 % (34.0-46.0); HGB 11.9 gm/dL (11.4-16.0); Hypochromasia Marked; Lymphocytes # (A) 1.6 k/uL (1.0-4.8); Lymphocytes % (A) 21 %; MCH 26.1 pg (25.0-35.0); MCV 86.8 fL (80.0-100.0); Mean Platelet Volume 7.1; Monocytes # (A) 0.5 k/uL (0-1.0); Monocytes % (A) 6 %; Neutrophils # (A) 5.4 k/uL (1.3-7.7); Neutrophils % (A) 68 %; Platelet Count 231 k/uL (150-450); RBC 4.58 m/uL (3.80-5.40); RDW 18.8 % (11.5-15.5); WBC 7.9 k/uL (3.8-10.6)
[2017-12-22 08:13] LABS: Calcium 8.8 mg/dL (8.4-10.2); Potassium 4.5 mmol/L (3.5-5.1)
--- NOTE | 2017-12-22 12:28 | P.PN ---
Subjective Progress Note Date: 12/22/17 No events overnight. Patient is scheduled for left heart catheterization today. Objective - Vital Signs Vital signs: Vital Signs Temp 97.6 F 12/22/17 07:51 Pulse 64 12/22/17 08:00 Resp 16 12/22/17 08:00 BP 108/70 12/22/17 07:51 Pulse Ox 96 12/22/17 07:51 Intake & Output 12/21/17 12/22/17 12/22/17 18:59 06:59 18:59 Intake Total 300 Balance 300 Intake: Oral 300 Other: Voiding Method Bedside Commode Bedside Commode Bedside Commode # Voids 1 1 - Exam General: The patient is awake and alert, in no distress Eye: there is normal conjunctiva bilaterally. Neck: The neck is supple, there is no JVD. Cardiovascular: Normal S1-S2, no S3-S4, no murmurs. Respiratory: Lungs clear to auscultation bilaterally Gastrointestinal: Abdomen is soft, nontender Musculoskeletal: There is no pedal edema. Neurological:. Speech is normal. Skin: Skin is warm and dry - Labs CBC & Chem 7: 12/22/17 07:28 12/22/17 07:28 Labs: Abnormal Lab Results - Last 24 Hours (Table) 12/21/17 12/22/17 12/22/17 Range/Units 11:15 07:28 07:28 MCHC 30.0 L (31.0-37.0) g/dL RDW 18.8 H (11.5-15.5) % Sodium 132 L (137-145) mmol/L Chloride 96 L (98-107) mmol/L Glucose 71 L (74-99) mg/dL Total Creatine Kinase <20 L (30-135) U/L Microbiology - Last 24 Hours (Table) 12/22/17 06:15 Urine Culture - Preliminary Urine,Clean Catch Assessment and Plan Assessment: 1. Chest pain with typical and atypical features. 12-lead EKG showed no acute ischemic changes. Troponin was normal. Patient was seen and evaluated by cardiology. She is scheduled for left heart catheterization today 2. Underlying chronic atrial fibrillation, maintained on amiodarone and metoprolol. 3. History of CVA/stroke 4. Diastolic heart failure: Patient appeared euvolemic on exam. 5. Large bruise involving the right abdominal wall, patient's hemoglobin is stable. Computed tomography scan of the abdomen last week with no he evidence of hematoma 6. Underlying COPD with no evidence of exacerbation 7. Chronic hypoxic respiratory failure on home O2 8. Hypothyroidism on Synthroid 9. History of coronary artery disease with cardiac stent 10. underlying vascular dementia 11. Severe peripheral vascular occlusive disease with multiple stent placement
[2017-12-22] MEDS ORDERED: IV FLUID CONTINUATION 850 ML IV ONE (13:20)
[2017-12-22] MEDS ORDERED: MIDAZOLAM 2 MG/2 ML VIAL IVP ONE (13:41)
[2017-12-22] MEDS ORDERED: LIDOCAINE 2% INJ 20 MG/ML SQ ONE ×2 (13:43→13:58)
[2017-12-22] MEDS ORDERED: IOPAMIDOL-370 125ML BTL INJ ONE (14:25)
[2017-12-22] MEDS ORDERED: RX INFO: IV CONTRAST WAS GIVEN 1 EACH MISC MISCELLANE PRN (14:26)
[2017-12-22] MEDS ORDERED: SODIUM CHLORIDE 0.9% 1,000 ML IV SCH (14:30)
[2017-12-22] MEDS: ISOSORBIDE MONONITRATE 20 MG TAB PO SCH (15:06)
--- NOTE | 2017-12-22 15:24 | CC ---
CARDIAC CATHETERIZATION REPORT DATE OF SERVICE: 12/22/2017 PERFORMING PHYSICIAN: Connor Bernal MD, [facility] [employer] [facility]. PROCEDURE PERFORMED: 1. Selective right and left coronary angiogram. 2. Left heart catheterization. INDICATION: This is a pleasant 67-year-old female patient with known history of coronary artery disease and prior stenting of the RCA and LAD, had multiple hospital admissions with chest discomfort concerning for angina. In view of that, a heart catheterization was recommended. She does have severe peripheral arterial disease and prior bilateral iliac stenting as well as multiple comorbidities including hypertension and dyslipidemia. APPROACH: Left common femoral artery. COMPLICATION: None. LEVEL OF SEDATION: Moderate with sedation length of 41 minutes. PROCEDURE DESCRIPTION: After obtaining an informed consent, the patient was brought to the Cardiac Log Deck Tender. Initially, I accessed the right common femoral artery. Then, I took a picture through the micropuncture sheath and that showed diffuse severe disease involving the right common femoral artery and a high stick and because of that I pulled the micropuncture sheath out and held pressure for 5 minutes until I achieved hemostasis on the right groin. After that, I did access the left common femoral artery using micropuncture technique, the micropuncture wire passed easily, then I placed a 6-Angolan sheath in the left common femoral artery. After that, I did exchange my 11 cm 6-Angolan sheath into 55 cm 6-Angolan sheath using the using an 035 wire. I did I did after that selective right and left coronary angiogram using JR4 and JL3.5 catheters. I did left heart catheterization using 6-Angolan pigtail catheter. The procedure was completed without any complication. SELECTIVE CORONARY ANGIOGRAM: 1. The right coronary artery is a large caliber vessel and it is a dominant vessel. The RCA appeared to be stented in the proximal portion and the stent is patent. The mid RCA has mild disease only and RCA distally has mild disease only. 2. The left main has ostial disease appeared to be in the range of 30%. The left main bifurcates into left circumflex and left anterior descending artery. 3. The left circumflex is a large caliber vessel. It is a nondominant vessel. The left circumflex is angiographically normal. 4. The LAD: The proximal LAD appeared to have mild disease only. The mid LAD is stented and the stent is patent. The LAD distally appeared to be angiographically normal. HEMODYNAMICS: The left ventricular end-diastolic pressure was about 20 mmHg and no gradient was identified across the aortic valve. CONCLUSION: 1. Patent stent in the proximal right coronary artery. 2. Mild disease involving the ostial left main, appeared to be in the range of 30%. 3. Mild disease involving the left circumflex coronary artery system. 4. Mid patent stent in the mid LAD with mild disease involving the ostial LAD. POSTPROCEDURE MANAGEMENT: Maximize medical treatment and follow up with the patient. MMODL / IJN: [id number] /
[2017-12-22] MEDS: HYDROcodone/APAP 5-325MG 1 EACH TAB PO PRN ×2 (17:41→22:44)
[2017-12-22] MEDS: CALCIUM POLYCARBOPHIL 625 MG TAB PO SCH (17:41)
[2017-12-22] MEDS: ATORVASTATIN 20 MG TAB PO SCH (17:41)
[2017-12-22] MEDS: FERROUS SULFATE 325 MG TAB PO SCH (17:42)
[2017-12-22] MEDS: POTASSIUM CHLORIDE ER 10 MEQ TAB.ER.PRT PO SCH (17:42)
[2017-12-22] MEDS: MAGNESIUM OXIDE 400 MG TAB PO SCH (17:42)
[2017-12-22] MEDS: MULTIVITAMINS, THERA 1 EACH TAB PO SCH (17:42)
[2017-12-23] MEDS: OXcarbazepine 150 MG TAB PO SCH ×2 (00:39→20:40)
[2017-12-23] MEDS: METOPROLOL TARTRATE 25 MG TAB PO SCH ×2 (00:39→09:40)
[2017-12-23] MEDS: MELATONIN 3 MG TABLET PO SCH ×2 (00:39→20:40)
[2017-12-23] MEDS: MONTELUKAST 10 MG TAB PO SCH ×2 (00:39→20:39)
[2017-12-23] MEDS: PARoxetine 10 MG TAB PO SCH ×3 (00:40→21:23)
[2017-12-23] MEDS: POLYETHYLENE GLYCOL 3350 17 GM POWD.PACK PO SCH ×2 (00:40→20:40)
[2017-12-23] MEDS: HYDROcodone/APAP 5-325MG 1 EACH TAB PO PRN ×3 (02:45→20:39)
[2017-12-23 07:48] LABS: Anisocytosis Slight; Basophils % (A) 0 %; Eosinophils # (A) 0.2 k/uL (0-0.7); Eosinophils % (A) 2 %; HCT 39.9 % (34.0-46.0); HGB 12.3 gm/dL (11.4-16.0); Hypochromasia Moderate; Lymphocytes # (A) 1.5 k/uL (1.0-4.8); Lymphocytes % (A) 20 %; MCH 26.2 pg (25.0-35.0); MCHC 30.9 g/dL (31.0-37.0); MCV 84.7 fL (80.0-100.0); Mean Platelet Volume 6.3; Monocytes # (A) 0.4 k/uL (0-1.0); Monocytes % (A) 5 %; Neutrophils # (A) 5.6 k/uL (1.3-7.7); Neutrophils % (A) 71 %; Platelet Count 228 k/uL (150-450); RBC 4.71 m/uL (3.80-5.40); RDW 18.7 % (11.5-15.5); WBC 7.8 k/uL (3.8-10.6)
[2017-12-23 07:55] LABS: Potassium 4.6 mmol/L (3.5-5.1)
[2017-12-23] MEDS: ALBUTEROL NEBULIZED 2.5 MG/3 ML INHALATION SCH ×4 (08:37→20:53)
[2017-12-23] MEDS: BREO ELLIPTA INHALATION SCH (08:38)
[2017-12-23] MEDS: SPIRIVA 18 MCG INHALATION SCH ×2 (08:38→08:39)
[2017-12-23] MEDS ORDERED: MORPHINE ORAL SOLN 10 MG/5 ML CUP PO PRN (09:16)
[2017-12-23] MEDS: PANTOPRAZOLE 40 MG TABLET PO SCH (09:36)
[2017-12-23] MEDS: LEVOTHYROXINE 100 MCG TAB PO SCH (09:36)
[2017-12-23] MEDS: AMIODARONE 200 MG TAB PO SCH (09:37)
[2017-12-23] MEDS: LURASIDONE 40 MG TAB PO SCH (09:38)
[2017-12-23] MEDS: ASPIRIN 325 MG TAB PO SCH (09:38)
[2017-12-23] MEDS ORDERED: SODIUM CHLORIDE 0.9% 250 ML IV ONE (12:01)
--- NOTE | 2017-12-23 12:51 | P.PN ---
Subjective Patient is awake and alert today. She is hypotensive this morning with blood pressure systolic in the 70s. She denies dizziness or lightheadedness. Objective - Vital Signs Vital signs: Vital Signs Temp 97.5 F L 12/23/17 11:30 Pulse 58 L 12/23/17 11:30 Resp 18 12/23/17 11:30 BP 78/56 12/23/17 11:43 Pulse Ox 96 12/23/17 11:30 Intake & Output 12/22/17 12/23/17 12/23/17 18:59 06:59 18:59 Intake Total 150 240 Balance 150 240 Intake: IV 150 Oral 240 Other: Voiding Method Bedside Commode Bedside Commode # Voids 3 2 1 - Exam General: The patient is awake and alert, in no distress Eye: there is normal conjunctiva bilaterally. Neck: The neck is supple, there is no JVD. Cardiovascular: Normal S1-S2, no S3-S4, no murmurs. Respiratory: Lungs clear to auscultation bilaterally Gastrointestinal: Abdomen is soft, nontender Musculoskeletal: There is no pedal edema. Neurological:. Speech is normal. Skin: Skin is warm and dry - Labs CBC & Chem 7: 12/23/17 06:27 12/23/17 06:27 Labs: Abnormal Lab Results - Last 24 Hours (Table) 12/23/17 12/23/17 Range/Units 06:27 06:27 MCHC 30.9 L (31.0-37.0) g/dL RDW 18.7 H (11.5-15.5) % Glucose 67 L (74-99) mg/dL Microbiology - Last 24 Hours (Table) 12/22/17 06:15 Urine Culture - Preliminary Urine,Clean Catch Assessment and Plan Assessment: 1. Chest pain with typical and atypical features. Status post left heart catheterization showing patent stent with no significant coronary artery disease as detailed in heart cath report. 12-lead EKG showed no acute ischemic changes. Troponin was normal. Patient was seen and evaluated by cardiology. She is scheduled for left heart catheterization today 2. Underlying chronic atrial fibrillation, maintained on amiodarone and metoprolol. 3. History of CVA/stroke 4. Diastolic heart failure: Patient appeared euvolemic on exam. 5. Large bruise involving the right abdominal wall, patient's hemoglobin is stable. Computed tomography scan of the abdomen last week with no he evidence of hematoma 6. Underlying COPD with no evidence of exacerbation 7. Chronic hypoxic respiratory failure on home O2 8. Hypothyroidism on Synthroid 9. History of coronary artery disease with cardiac stent 10. underlying vascular dementia 11. Severe peripheral vascular occlusive disease with multiple stent placement 12. Hypotension: Multifactorial secondary to dehydration, amiodarone and metoprolol, and underlying heart failure. We will give her 250 and 0.9 IV bolus. Awaiting further cardiology recommendations for medication adjustment.
--- NOTE | 2017-12-23 13:20 | P.PN ---
Subjective Progress Note Date: 12/23/17 Mrs. Mckeon is a pleasant 67-year-old female past medical history significant for coronary artery disease with prior stenting of LAD and RCA, paroxysmal atrial fibrillation, COPD, history of CVA and severe peripheral arterial disease s/p iliac stenting. She underwent cardiac catheheterization yesterday that revealed patent stent in the proximal RCA, mild disease involving the ostial left main appear to be in the range of 30%, mild disease involving the left circumflex system, patent stent in the mid LAD with mild disease involving the ostial LAD. She developed a hematoma in the left groin. FemStop was applied overnight. Left groin with extensive ecchymosis with no hematoma, no bruit and mild tenderness on palpitation. Hgb this morning 12.3 from 11.9 yesterday morning. Sodium 139, potassium 4.6, creatinine 0.85, plt 228. Blood pressure this morning before medications 115/57 with heart rate 70. After receiving norco, amiodarone and lopressor blood pressure in both arms 70' s systolic manually. Objective - Vital Signs Vital signs: Vital Signs Temp 97.5 F L 12/23/17 11:30 Pulse 58 L 12/23/17 11:30 Resp 18 12/23/17 11:30 BP 78/56 12/23/17 11:43 Pulse Ox 96 12/23/17 11:30 Intake & Output 12/22/17 12/23/17 12/23/17 18:59 06:59 18:59 Intake Total 150 240 Balance 150 240 Intake: IV 150 Oral 240 Other: Voiding Method Bedside Commode Bedside Commode # Voids 3 2 1 - Exam GENERAL: Well-appearing, well-nourished and in no acute distress. NECK: Supple without JVD or thyromegaly. LUNGS: Breath sounds clear to auscultation bilaterally. Respiration equal and unlabored. No wheezes, rales or rhonchi. HEART: Regular rate and rhythm without murmurs, rubs or gallops. S1 and S2 heard. EXTREMITIES: Normal range of motion, no edema. No clubbing or cyanosis. Peripheral pulses intact. Left groin extensive ecchymosis, tenderness, no hematoma, no bruit, no active bleeding. - Labs CBC & Chem 7: 12/23/17 06:27 12/23/17 06:27 Labs: Abnormal Lab Results - Last 24 Hours (Table) 12/23/17 12/23/17 Range/Units 06:27 06:27 MCHC 30.9 L (31.0-37.0) g/dL RDW 18.7 H (11.5-15.5) % Glucose 67 L (74-99) mg/dL Microbiology - Last 24 Hours (Table) 12/22/17 06:15 Urine Culture - Preliminary Urine,Clean Catch Assessment and Plan Assessment: ASSESSMENT 1. Intermittent episodes of chest discomfort concerning for angina. Cardiac catheterization shows patent stents of the LAD and RCA with mild disease of the left main. 2. History of coronary artery disease 3. Peripheral arterial disease status post bilateral iliac stenting 4. Paroxysmal atrial fibrillation 5. COPD 6. Hypotension PLAN Recommend maximum medical therapy, imdur was added but has been discontinued secondary to hypotension. Decreased lopressor to 12.5 mg BID. Obtain ultrasound of left groin. Increase activity. Repeat blood pressure on both arms secondary to severe PAD. Nurse Practitioner note has been reviewed, I agree with a documented findings and plan of care. Patient was seen and examined.
--- NOTE | 2017-12-23 14:03 | US ---
EXAMINATION TYPE: US lower ext pseudo artery LT DATE OF EXAM: 12/23/2017 COMPARISON: NONE CLINICAL HISTORY: hematoma s/p cath. EXAM PERFORMED: Grayscale and color Doppler duplex imaging performed of the groin, post cardiac anthony ter to assess for pseudoaneurysm. SIDE PERFORMED: Left Color and Waveform Doppler performed to assess for the presence of pseudoaneurysm; Is there ultrasound evidence of a pseudoaneurysm: No Is there evidence of AV shunting: No Is there a fluid collection present: Yes, within the left groin, there is a complex area visualized m easuring 3.9 x 1.9 x 3.2 cm IMPRESSION: Avascular irregular hypoechoic region in the area of bruising within the left groin status post recen t catheterization. This is most compatible with a hematoma. No evidence of pseudoaneurysm.
[2017-12-23] MEDS: ATORVASTATIN 20 MG TAB PO SCH (18:27)
[2017-12-23] MEDS: CALCIUM POLYCARBOPHIL 625 MG TAB PO SCH (18:27)
[2017-12-23] MEDS: FERROUS SULFATE 325 MG TAB PO SCH (18:28)
[2017-12-23] MEDS: MAGNESIUM OXIDE 400 MG TAB PO SCH (18:28)
[2017-12-23] MEDS: POTASSIUM CHLORIDE ER 10 MEQ TAB.ER.PRT PO SCH (18:28)
[2017-12-23] MEDS: MULTIVITAMINS, THERA 1 EACH TAB PO SCH (18:28)
[2017-12-23] MEDS: METOPROLOL TARTRATE 12.5 MG TAB PO SCH (20:40)
[2017-12-24] MEDS: LEVOTHYROXINE 100 MCG TAB PO SCH (07:11)
[2017-12-24] MEDS: HYDROcodone/APAP 5-325MG 1 EACH TAB PO PRN (07:12)
[2017-12-24 07:33] LABS: Anisocytosis Slight; Basophils % (A) 0 %; Eosinophils # (A) 0.2 k/uL (0-0.7); Eosinophils % (A) 2 %; HCT 38.1 % (34.0-46.0); HGB 11.7 gm/dL (11.4-16.0); Hypochromasia Moderate; Lymphocytes # (A) 1.7 k/uL (1.0-4.8); Lymphocytes % (A) 21 %; MCH 26.6 pg (25.0-35.0); MCHC 30.6 g/dL (31.0-37.0); MCV 86.8 fL (80.0-100.0); Mean Platelet Volume 6.7; Monocytes # (A) 0.5 k/uL (0-1.0); Monocytes % (A) 6 %; Neutrophils # (A) 5.5 k/uL (1.3-7.7); Neutrophils % (A) 68 %; Platelet Count 235 k/uL (150-450); RBC 4.39 m/uL (3.80-5.40); RDW 18.9 % (11.5-15.5); WBC 8.2 k/uL (3.8-10.6)
[2017-12-24 07:56] LABS: Potassium 4.4 mmol/L (3.5-5.1)
[2017-12-24] MEDS: METOPROLOL TARTRATE 12.5 MG TAB PO SCH ×2 (08:26→22:10)
[2017-12-24] MEDS: ASPIRIN 325 MG TAB PO SCH (08:26)
[2017-12-24] MEDS: PANTOPRAZOLE 40 MG TABLET PO SCH (08:27)
[2017-12-24] MEDS: LURASIDONE 40 MG TAB PO SCH (08:27)
[2017-12-24] MEDS: AMIODARONE 200 MG TAB PO SCH (08:27)
[2017-12-24] MEDS: BREO ELLIPTA INHALATION SCH (08:42)
[2017-12-24] MEDS: SPIRIVA 18 MCG INHALATION SCH (08:43)
[2017-12-24] MEDS: ALBUTEROL NEBULIZED 2.5 MG/3 ML INHALATION SCH ×4 (08:57→20:14)
--- NOTE | 2017-12-24 09:01 | P.PN ---
Subjective Mrs. Mckeon is a pleasant 67-year-old female past medical history significant for coronary artery disease with prior stenting of LAD and RCA, paroxysmal atrial fibrillation, COPD, history of CVA and severe peripheral arterial disease s/p iliac stenting. She underwent cardiac catheheterization yesterday that revealed patent stent in the proximal RCA, mild disease involving the ostial left main appear to be in the range of 30%, mild disease involving the left circumflex system, patent stent in the mid LAD with mild disease involving the ostial LAD. She developed a hematoma in the left groin. FemStop was applied overnight. Left groin with extensive ecchymosis with no hematoma, no bruit and mild tenderness on palpitation. Hgb this morning 12.3 from 11.9 yesterday morning. Sodium 139, potassium 4.6, creatinine 0.85, plt 228. Blood pressure this morning before medications 115/57 with heart rate 70. After receiving norco, amiodarone and lopressor blood pressure in both arms 70' s systolic manually. 12/24/2017 Mrs. Mckeon is seen and examined resting comfortably in bed. Blood pressure has improved 102/55 this morning and mostly 90's systolic overnight. Left groin with ongoing ecchymosis that initially was spreading to the left hip region but has been stable since last exam yesterday afternoon. No hematoma, no bleeding, no bruit. Ultrasound yesterday revealed evidence of hypoechoic region with no evidence of psuedoaneurysm. Hgb today 11.7. Objective - Vital Signs Vital signs: Vital Signs Temp 98.7 F 12/24/17 08:00 Pulse 65 12/24/17 08:00 Resp 12 12/24/17 08:00 BP 102/55 12/24/17 08:00 Pulse Ox 91 L 12/24/17 08:00 Intake & Output 12/23/17 12/24/17 12/24/17 18:59 06:59 18:59 Intake Total 680 Balance 680 Intake: Oral 480 Other 200 Other: Voiding Method Bedside Commode # Voids 1 4 - Exam GENERAL: Well-appearing, well-nourished and in no acute distress. NECK: Supple without JVD or thyromegaly. LUNGS: Breath sounds clear to auscultation bilaterally. Respiration equal and unlabored. No wheezes, rales or rhonchi. HEART: Regular rate and rhythm without murmurs, rubs or gallops. S1 and S2 heard. EXTREMITIES: Normal range of motion, no edema. No clubbing or cyanosis. Peripheral pulses intact. Left groin extensive ecchymosis, mild tenderness, no hematoma, no bruit, no active bleeding. - Labs CBC & Chem 7: 12/24/17 06:45 12/24/17 06:45 Labs: Abnormal Lab Results - Last 24 Hours (Table) 12/24/17 12/24/17 Range/Units 06:45 06:45 MCHC 30.6 L (31.0-37.0) g/dL RDW 18.9 H (11.5-15.5) % Glucose 73 L (74-99) mg/dL Microbiology - Last 24 Hours (Table) 12/22/17 06:15 Urine Culture - Final Urine,Clean Catch Assessment and Plan Assessment: ASSESSMENT 1. Intermittent episodes of chest discomfort concerning for angina. Cardiac catheterization shows patent stents of the LAD and RCA with mild disease of the left main. 2. History of coronary artery disease 3. Peripheral arterial disease status post bilateral iliac stenting 4. Paroxysmal atrial fibrillation 5. COPD 6. Hypotension PLAN From cardiology perspective, continue current medical therapy. Increase activity and continue to monitor blood pressures. If systolic remains above 100 she is stable for discharge. Follow up with Dr. Bernal in the office next week to assess the groin. May consider decreasing opiate use. Nurse Practitioner note has been reviewed, I agree with a documented findings and plan of care. Patient was seen and examined.
--- NOTE | 2017-12-24 11:53 | P.PN ---
Subjective Progress Note Date: 12/24/17 This is a 67-year-old female with very complex past medical history noted below significant for underlying coronary artery disease and presented to the emergency room with chest pain. Patient is a very poor historian given her underlying cognitive impairment. Apparently she was seen by her producer director in the office yesterday for the same complaint and was supposed to be scheduled for left heart catheterization. Patient presented to the emergency room with what she describes as chest pain and right side pain and back pain. Patient said that her pain is mostly in the middle of her chest with no radiation. She is not having any shortness of breath. She is slightly hypotensive when I saw her today and her systolic blood pressure is in the 80s. She is not complaining of dizziness or lightheadedness. She was started on Imdur this morning and got her first dose of 20 mg. No issues otherwise. 12 leads EKG showed no acute ischemic changes. Troponin level was within normal range. 12/24/2017 Patient had undergone heart catheterization during this admission that revealed patent stent in the proximal RCA, mild disease involving the ostial left main appear to be in the range of 30%, mild disease involving the left circumflex system, patent stent in the mid LAD with mild disease involving the ostial LAD. She developed a hematoma in the left groin. FemStop was applied overnight. Left groin with extensive ecchymosis with no hematoma, no bruit and mild tenderness on palpitation. She is followed by cardiology. Patient also had hypotension with. Blood pressure in the 70s which improved with IV fluids. Imdur was discontinued by cardiology and they decreased the Lopressor to 12.5 mg twice a day. Blood pressures have shown improvement this morning blood pressure is 102/55. Ultrasound of the left groin shows no pseudoaneurysm but was positive for hematoma. The hematoma is very large. Patient is still feeling very weak. She denies any chest pain or shortness of breath. Denies any nausea or vomiting. Reports having bowel movements. Denies difficulty urinating. Patient does not feel ready for discharge. she still feels very weak Objective - Vital Signs Vital signs: Vital Signs Temp 98.7 F 12/24/17 08:00 Pulse 65 12/24/17 08:00 Resp 12 12/24/17 08:00 BP 102/55 12/24/17 08:00 Pulse Ox 91 L 12/24/17 08:00 Intake & Output 12/23/17 12/24/17 12/24/17 18:59 06:59 18:59 Intake Total 680 236 Balance 680 236 Intake: Oral 480 236 Other 200 Other: Voiding Method Bedside Commode Bedside Commode # Voids 1 4 - Exam Head normocephalic Neck supple Lungs clear to auscultation bilaterally no wheezing or crackles Heart regular rate and rhythm S1-S2, no rub or gallop Abdomen is soft nontender nondistended positive bowel sounds no hepatosplenomegaly Extremities no edema Neuro alert and orientated to 3 Skin exam patient has a large left groin hematoma. Cultures from the superior pubic area and wraps around towards the back. It is soft. Patient also has some other old bruises along her back from falling. And skin breakdown along the buttocks area. As well as candidiasis in the groin - Labs CBC & Chem 7: 12/24/17 06:45 12/24/17 06:45 Labs: Abnormal Lab Results - Last 24 Hours (Table) 12/24/17 12/24/17 Range/Units 06:45 06:45 MCHC 30.6 L (31.0-37.0) g/dL RDW 18.9 H (11.5-15.5) % Glucose 73 L (74-99) mg/dL Microbiology - Last 24 Hours (Table) 12/22/17 06:15 Urine Culture - Final Urine,Clean Catch Assessment and Plan Assessment: 1. Intermittent episodes of chest pain concerning for angina. Patient no longer reporting chest pain. Cardiac catheterization shows patent stents of the LAD and RCA with mild disease of the left main.12-lead EKG showed no acute ischemic changes. Troponin was normal. 2. Underlying chronic atrial fibrillation, maintained on amiodarone and metoprolol. 3. History of CVA/stroke 4. Chronic Diastolic heart failure 5. Large bruise involving the right abdominal wall, patient's hemoglobin is stable. Computed tomography scan of the abdomen last week with no he evidence of hematoma 6. Underlying COPD with no evidence of exacerbation 7. Chronic hypoxic respiratory failure on home O2 8. Hypothyroidism on Synthroid 9. History of coronary artery disease with cardiac stent 10. underlying vascular dementia 11. Severe peripheral vascular occlusive disease with multiple stent placement 12. Hypotension: Multifactorial secondary to dehydration, amiodarone and metoprolol, and underlying heart failure. We will give her 250 and 0.9 IV bolus. Cardiology adjusted medications Imdur was discontinued and Lopressor decreased to 12.5 mg twice a day. Blood pressures have shown improvement. 13. Large left groin hematoma. Ultrasound showed no pseudoaneurysm was positive for hematoma. Hemoglobin has dropped from 12.3-11.7. Patient is tender in that area. We'll have nursing staff apply ice 14. Candidiasis of the groin add nystatin powder 16. Dermatitis of the buttocks add zinc oxide Increase activity. Consult physical therapy I performed an examination of the patient and discussed their management with the physician Splitting Machine Tender. I have reviewed the Physician Splitting Machine Tender's notes and agree with the documented findings and plan of care
[2017-12-24] MEDS: ATORVASTATIN 20 MG TAB PO SCH (16:03)
[2017-12-24] MEDS: CALCIUM POLYCARBOPHIL 625 MG TAB PO SCH (16:03)
[2017-12-24] MEDS: NYSTATIN 100,000 UNIT/GM POWD 15 GM TOPICAL SCH ×2 (16:03→22:17)
[2017-12-24] MEDS: ZINC OXIDE 20% OINT 28.4 GM TUBE TOPICAL SCH ×2 (16:03→22:17)
[2017-12-24] MEDS: POTASSIUM CHLORIDE ER 10 MEQ TAB.ER.PRT PO SCH (16:04)
[2017-12-24] MEDS: MULTIVITAMINS, THERA 1 EACH TAB PO SCH (16:04)
[2017-12-24] MEDS: FERROUS SULFATE 325 MG TAB PO SCH (16:04)
[2017-12-24] MEDS: MAGNESIUM OXIDE 400 MG TAB PO SCH (16:04)
[2017-12-24] MEDS: POLYETHYLENE GLYCOL 3350 17 GM POWD.PACK PO SCH (22:13)
[2017-12-24] MEDS: MELATONIN 3 MG TABLET PO SCH (22:13)
[2017-12-24] MEDS: MONTELUKAST 10 MG TAB PO SCH (22:14)
[2017-12-24] MEDS: PARoxetine 10 MG TAB PO SCH (22:14)
[2017-12-24] MEDS: OXcarbazepine 150 MG TAB PO SCH (22:14)
[2017-12-25] MEDS: HYDROcodone/APAP 5-325MG 1 EACH TAB PO PRN ×3 (00:28→19:40)
[2017-12-25] MEDS: LEVOTHYROXINE 100 MCG TAB PO SCH (06:21)
[2017-12-25 07:52] LABS: Anisocytosis Slight; Basophils % (A) 0 %; Eosinophils # (A) 0.2 k/uL (0-0.7); Eosinophils % (A) 3 %; HCT 40.3 % (34.0-46.0); Hypochromasia Marked; Lymphocytes # (A) 2.3 k/uL (1.0-4.8); Lymphocytes % (A) 27 %; MCH 25.8 pg (25.0-35.0); MCHC 29.8 g/dL (31.0-37.0); MCV 86.6 fL (80.0-100.0); Mean Platelet Volume 7.2; Monocytes # (A) 0.6 k/uL (0-1.0); Monocytes % (A) 7 %; Neutrophils # (A) 5.3 k/uL (1.3-7.7); Neutrophils % (A) 62 %; Platelet Count 256 k/uL (150-450); RBC 4.65 m/uL (3.80-5.40); RDW 18.6 % (11.5-15.5); WBC 8.6 k/uL (3.8-10.6)
[2017-12-25 08:09] LABS: Calcium 9.3 mg/dL (8.4-10.2); Potassium 4.2 mmol/L (3.5-5.1)
[2017-12-25] MEDS: METOPROLOL TARTRATE 12.5 MG TAB PO SCH ×2 (08:20→21:09)
[2017-12-25] MEDS: LURASIDONE 40 MG TAB PO SCH (08:20)
[2017-12-25] MEDS: AMIODARONE 200 MG TAB PO SCH (08:20)
[2017-12-25] MEDS: ZINC OXIDE 20% OINT 28.4 GM TUBE TOPICAL SCH ×2 (08:21→21:10)
[2017-12-25] MEDS: PANTOPRAZOLE 40 MG TABLET PO SCH (08:21)
[2017-12-25] MEDS: NYSTATIN 100,000 UNIT/GM POWD 15 GM TOPICAL SCH ×2 (08:21→21:10)
[2017-12-25] MEDS: SPIRIVA 18 MCG INHALATION SCH (08:24)
[2017-12-25] MEDS: BREO ELLIPTA INHALATION SCH (08:24)
[2017-12-25] MEDS: ALBUTEROL NEBULIZED 2.5 MG/3 ML INHALATION SCH ×4 (08:29→20:00)
[2017-12-25] MEDS: ASPIRIN 325 MG TAB PO SCH (08:30)
--- NOTE | 2017-12-25 16:55 | P.PN ---
Subjective Progress Note Date: 12/25/17 This is a 67-year-old female with very complex past medical history noted below significant for underlying coronary artery disease and presented to the emergency room with chest pain. Patient is a very poor historian given her underlying cognitive impairment. Apparently she was seen by her applications programmer in the office yesterday for the same complaint and was supposed to be scheduled for left heart catheterization. Patient presented to the emergency room with what she describes as chest pain and right side pain and back pain. Patient said that her pain is mostly in the middle of her chest with no radiation. She is not having any shortness of breath. She is slightly hypotensive when I saw her today and her systolic blood pressure is in the 80s. She is not complaining of dizziness or lightheadedness. She was started on Imdur this morning and got her first dose of 20 mg. No issues otherwise. 12 leads EKG showed no acute ischemic changes. Troponin level was within normal range. 12/24/2017 Patient had undergone heart catheterization during this admission that revealed patent stent in the proximal RCA, mild disease involving the ostial left main appear to be in the range of 30%, mild disease involving the left circumflex system, patent stent in the mid LAD with mild disease involving the ostial LAD. She developed a hematoma in the left groin. FemStop was applied overnight. Left groin with extensive ecchymosis with no hematoma, no bruit and mild tenderness on palpitation. She is followed by cardiology. Patient also had hypotension with. Blood pressure in the 70s which improved with IV fluids. Imdur was discontinued by cardiology and they decreased the Lopressor to 12.5 mg twice a day. Blood pressures have shown improvement this morning blood pressure is 102/55. Ultrasound of the left groin shows no pseudoaneurysm but was positive for hematoma. The hematoma is very large. Patient is still feeling very weak. She denies any chest pain or shortness of breath. Denies any nausea or vomiting. Reports having bowel movements. Denies difficulty urinating. Patient does not feel ready for discharge. she still feels very weak Objective - Vital Signs Vital signs: Vital Signs Temp 97.5 F L 12/25/17 15:00 Pulse 67 12/25/17 15:00 Resp 16 12/25/17 15:00 BP 124/61 12/25/17 15:00 Pulse Ox 95 12/25/17 15:00 Intake & Output 12/24/17 12/25/17 12/25/17 18:59 06:59 18:59 Intake Total 236 120 Balance 236 120 Weight 58 kg Intake: Oral 236 120 Other: Voiding Method Bedside Commode Bedside Commode # Voids 3 4 3 # Bowel Movements 1 - Exam Head normocephalic and atraumatic Neck supple no JVD no goiter no lymphadenopathy Lungs clear to auscultation bilaterally no wheezing or crackles Heart regular rate and rhythm S1-S2, no rub or gallop Abdomen is soft nontender nondistended positive bowel sounds no hepatosplenomegaly Extremities no edema no cyanosis or clubbing Neuro alert and orientated to 3 no gross focal deficit, there is generalized Skin exam patient has a large left groin hematoma. Cultures from the superior pubic area and wraps around towards the back. It is soft. Patient also has some other old bruises along her back from falling. And skin breakdown along the buttocks area. As well as candidiasis in the groin - Labs CBC & Chem 7: 12/25/17 07:30 12/25/17 07:30 Labs: Abnormal Lab Results - Last 24 Hours (Table) 12/25/17 Range/Units 07:30 MCHC 29.8 L (31.0-37.0) g/dL RDW 18.6 H (11.5-15.5) % Assessment and Plan Plan: 1. Intermittent episodes of chest pain concerning for angina. Patient no longer reporting chest pain. Cardiac catheterization shows patent stents of the LAD and RCA with mild disease of the left main.12-lead EKG showed no acute ischemic changes. Troponin was normal. 2. Underlying chronic atrial fibrillation, maintained on amiodarone and metoprolol. 3. History of CVA/stroke 4. Chronic Diastolic heart failure 5. Large bruise involving the right abdominal wall, patient's hemoglobin is stable. Computed tomography scan of the abdomen last week with no he evidence of hematoma 6. Underlying COPD with no evidence of exacerbation 7. Chronic hypoxic respiratory failure on home O2 8. Hypothyroidism on Synthroid 9. History of coronary artery disease with with a history of stent placement 10. underlying vascular dementia 11. Severe peripheral vascular occlusive disease with multiple stent placement 12. Hypotension: Multifactorial secondary to dehydration, amiodarone and metoprolol, and underlying heart failure. We will give her 250 and 0.9 IV bolus. Cardiology adjusted medications Imdur was discontinued and Lopressor decreased to 12.5 mg twice a day. Blood pressures have shown improvement. 13. Large left groin hematoma. Ultrasound showed no pseudoaneurysm was positive for hematoma. Hemoglobin has dropped from 12.3-11.7. Patient is tender in that area. We'll have nursing staff apply ice 14. Candidiasis of the groin add nystatin powder 16. Dermatitis of the buttocks add zinc oxide Increase activity. Consult physical therapy
[2017-12-25] MEDS: POTASSIUM CHLORIDE ER 10 MEQ TAB.ER.PRT PO SCH (18:11)
[2017-12-25] MEDS: ATORVASTATIN 20 MG TAB PO SCH (18:11)
[2017-12-25] MEDS: MULTIVITAMINS, THERA 1 EACH TAB PO SCH (18:11)
[2017-12-25] MEDS: FERROUS SULFATE 325 MG TAB PO SCH (18:11)
[2017-12-25] MEDS: MAGNESIUM OXIDE 400 MG TAB PO SCH (18:11)
[2017-12-25] MEDS: CALCIUM POLYCARBOPHIL 625 MG TAB PO SCH (18:11)
[2017-12-25] MEDS: POLYETHYLENE GLYCOL 3350 17 GM POWD.PACK PO SCH (19:40)
[2017-12-25] MEDS: MONTELUKAST 10 MG TAB PO SCH (21:09)
[2017-12-25] MEDS: MELATONIN 3 MG TABLET PO SCH (21:09)
[2017-12-25] MEDS: OXcarbazepine 150 MG TAB PO SCH (21:10)
[2017-12-25] MEDS: PARoxetine 10 MG TAB PO SCH (21:10)
[2017-12-26] MEDS: HYDROcodone/APAP 5-325MG 1 EACH TAB PO PRN ×2 (00:16→16:17)
[2017-12-26] MEDS: LEVOTHYROXINE 100 MCG TAB PO SCH (06:17)
[2017-12-26] MEDS: BREO ELLIPTA INHALATION SCH (07:26)
[2017-12-26] MEDS: SPIRIVA 18 MCG INHALATION SCH (07:26)
[2017-12-26] MEDS: ALBUTEROL NEBULIZED 2.5 MG/3 ML INHALATION SCH ×4 (07:26→20:21)
[2017-12-26 07:55] LABS: Anisocytosis Slight; Basophils % (A) 0 %; Eosinophils # (A) 0.3 k/uL (0-0.7); Eosinophils % (A) 4 %; HCT 38.8 % (34.0-46.0); HGB 11.7 gm/dL (11.4-16.0); Hypochromasia Marked; Lymphocytes % (A) 28 %; MCH 26.1 pg (25.0-35.0); MCHC 30.1 g/dL (31.0-37.0); MCV 86.7 fL (80.0-100.0); Mean Platelet Volume 7.2; Monocytes # (A) 0.5 k/uL (0-1.0); Monocytes % (A) 7 %; Neutrophils # (A) 4.1 k/uL (1.3-7.7); Neutrophils % (A) 58 %; Platelet Count 269 k/uL (150-450); RBC 4.48 m/uL (3.80-5.40); RDW 18.6 % (11.5-15.5); WBC 7.1 k/uL (3.8-10.6)
[2017-12-26 08:06] LABS: Albumin 3.4 g/dL (3.5-5.0); Calcium 9.3 mg/dL (8.4-10.2); Potassium 4.7 mmol/L (3.5-5.1); Total Bilirubin 0.6 mg/dL (0.2-1.3); Total Protein 5.7 g/dL (6.3-8.2)
[2017-12-26] MEDS: METOPROLOL TARTRATE 12.5 MG TAB PO SCH ×2 (08:40→20:40)
[2017-12-26] MEDS: LURASIDONE 40 MG TAB PO SCH (08:40)
[2017-12-26] MEDS: NYSTATIN 100,000 UNIT/GM POWD 15 GM TOPICAL SCH ×2 (08:41→20:40)
[2017-12-26] MEDS: PANTOPRAZOLE 40 MG TABLET PO SCH (08:41)
[2017-12-26] MEDS: AMIODARONE 200 MG TAB PO SCH (08:41)
[2017-12-26] MEDS: ASPIRIN 325 MG TAB PO SCH (08:41)
[2017-12-26] MEDS: ZINC OXIDE 20% OINT 28.4 GM TUBE TOPICAL SCH ×2 (08:42→20:42)
[2017-12-26] MEDS: CALCIUM POLYCARBOPHIL 625 MG TAB PO SCH (16:10)
[2017-12-26] MEDS: MULTIVITAMINS, THERA 1 EACH TAB PO SCH (16:10)
[2017-12-26] MEDS: FERROUS SULFATE 325 MG TAB PO SCH (16:10)
[2017-12-26] MEDS: MAGNESIUM OXIDE 400 MG TAB PO SCH (16:10)
[2017-12-26] MEDS: POTASSIUM CHLORIDE ER 10 MEQ TAB.ER.PRT PO SCH (16:10)
[2017-12-26] MEDS: ATORVASTATIN 20 MG TAB PO SCH (16:10)
--- NOTE | 2017-12-26 16:35 | P.PN ---
Subjective Progress Note Date: 12/26/17 This is a 67-year-old female with very complex past medical history noted below significant for underlying coronary artery disease and presented to the emergency room with chest pain. Patient is a very poor historian given her underlying cognitive impairment. Apparently she was seen by her induction heat treater in the office yesterday for the same complaint and was supposed to be scheduled for left heart catheterization. Patient presented to the emergency room with what she describes as chest pain and right side pain and back pain. Patient said that her pain is mostly in the middle of her chest with no radiation. She is not having any shortness of breath. She is slightly hypotensive when I saw her today and her systolic blood pressure is in the 80s. She is not complaining of dizziness or lightheadedness. She was started on Imdur this morning and got her first dose of 20 mg. No issues otherwise. 12 leads EKG showed no acute ischemic changes. Troponin level was within normal range. 12/24/2017 Patient had undergone heart catheterization during this admission that revealed patent stent in the proximal RCA, mild disease involving the ostial left main appear to be in the range of 30%, mild disease involving the left circumflex system, patent stent in the mid LAD with mild disease involving the ostial LAD. She developed a hematoma in the left groin. FemStop was applied overnight. Left groin with extensive ecchymosis with no hematoma, no bruit and mild tenderness on palpitation. She is followed by cardiology. Patient also had hypotension with. Blood pressure in the 70s which improved with IV fluids. Imdur was discontinued by cardiology and they decreased the Lopressor to 12.5 mg twice a day. Blood pressures have shown improvement this morning blood pressure is 102/55. Ultrasound of the left groin shows no pseudoaneurysm but was positive for hematoma. The hematoma is very large. Patient is still feeling very weak. She denies any chest pain or shortness of breath. Denies any nausea or vomiting. Reports having bowel movements. Denies difficulty urinating. Patient does not feel ready for discharge. she still feels very weak. On 12/26/2017 patient is alert and oriented in no apparent distress still complaining of pain in her groin examination of the groin area showing a large area of hematoma, patient is also complaining of generalized weakness, she denies any other complaints there is no fever or chills no headache or dizziness no chest pain no shortness of breath no cough no nausea or vomiting no abdominal pain no diarrhea and no urinary symptoms. Objective - Vital Signs Vital signs: Vital Signs Temp 97.9 F 12/26/17 15:08 Pulse 68 12/26/17 16:00 Resp 16 12/26/17 16:00 BP 107/51 12/26/17 15:08 Pulse Ox 97 12/26/17 15:08 Intake & Output 12/25/17 12/26/17 12/26/17 18:59 06:59 18:59 Intake Total 1620 Balance 1620 Intake: Oral 1620 Other: Voiding Method Bedside Commode Bedside Commode Bedside Commode # Voids 3 2 3 # Bowel Movements 1 - Exam Head normocephalic and atraumatic Neck supple no JVD no goiter no lymphadenopathy Lungs clear to auscultation bilaterally no wheezing or crackles Heart regular rate and rhythm S1-S2, no rub or gallop Abdomen is soft nontender nondistended positive bowel sounds no hepatosplenomegaly Extremities no edema no cyanosis or clubbing Neuro alert and orientated to 3 no gross focal deficit, there is generalized Skin exam patient has a large left groin hematoma. Cultures from the superior pubic area and wraps around towards the back. It is soft. Patient also has some other old bruises along her back from falling. And skin breakdown along the buttocks area. As well as candidiasis in the groin - Labs CBC & Chem 7: 12/26/17 07:28 12/26/17 07:28 Labs: Abnormal Lab Results - Last 24 Hours (Table) 12/26/17 12/26/17 Range/Units 07:28 07:28 MCHC 30.1 L (31.0-37.0) g/dL RDW 18.6 H (11.5-15.5) % Glucose 71 L (74-99) mg/dL Total Protein 5.7 L (6.3-8.2) g/dL Albumin 3.4 L (3.5-5.0) g/dL Assessment and Plan Plan: 1. Intermittent episodes of chest pain concerning for angina. Patient no longer reporting chest pain. Cardiac catheterization shows patent stents of the LAD and RCA with mild disease of the left main.12-lead EKG showed no acute ischemic changes. Troponin was normal. 2. Underlying chronic atrial fibrillation, maintained on amiodarone and metoprolol. 3. History of CVA/stroke 4. Chronic Diastolic heart failure 5. Large bruise involving the right abdominal wall, patient's hemoglobin is stable. Computed tomography scan of the abdomen last week with no he evidence of hematoma 6. Underlying COPD with no evidence of exacerbation 7. Chronic hypoxic respiratory failure on home O2 8. Hypothyroidism on Synthroid 9. History of coronary artery disease with with a history of stent placement 10. underlying vascular dementia 11. Severe peripheral vascular occlusive disease with multiple stent placement 12. Hypotension: Multifactorial secondary to dehydration, amiodarone and metoprolol, and underlying heart failure. We will give her 250 and 0.9 IV bolus. Cardiology adjusted medications Imdur was discontinued and Lopressor decreased to 12.5 mg twice a day. Blood pressures have shown improvement. 13. Large left groin hematoma. Ultrasound showed no pseudoaneurysm was positive for hematoma. Hemoglobin has dropped from 12.3-11.7. Patient is tender in that area. We'll have nursing staff apply ice 14. Candidiasis of the groin add nystatin powder 16. Dermatitis of the buttocks add zinc oxide Increase activity. Consult physical therapy
[2017-12-26] MEDS: MONTELUKAST 10 MG TAB PO SCH (20:40)
[2017-12-26] MEDS: MELATONIN 3 MG TABLET PO SCH (20:40)
[2017-12-26] MEDS: PARoxetine 10 MG TAB PO SCH (20:41)
[2017-12-26] MEDS: OXcarbazepine 150 MG TAB PO SCH (20:41)
[2017-12-26] MEDS: POLYETHYLENE GLYCOL 3350 17 GM POWD.PACK PO SCH (20:41)
[2017-12-27] MEDS: LEVOTHYROXINE 100 MCG TAB PO SCH (06:00)
[2017-12-27] MEDS: ALBUTEROL NEBULIZED 2.5 MG/3 ML INHALATION SCH ×4 (07:45→21:39)
[2017-12-27] MEDS: BREO ELLIPTA INHALATION SCH (07:45)
[2017-12-27] MEDS: SPIRIVA 18 MCG INHALATION SCH (07:45)
[2017-12-27] MEDS: AMIODARONE 200 MG TAB PO SCH (08:05)
[2017-12-27] MEDS: METOPROLOL TARTRATE 12.5 MG TAB PO SCH ×2 (08:05→21:04)
[2017-12-27] MEDS: ASPIRIN 325 MG TAB PO SCH (08:05)
[2017-12-27] MEDS: PANTOPRAZOLE 40 MG TABLET PO SCH (08:05)
[2017-12-27] MEDS: LURASIDONE 40 MG TAB PO SCH (08:05)
[2017-12-27] MEDS: NYSTATIN 100,000 UNIT/GM POWD 15 GM TOPICAL SCH ×2 (08:08→21:04)
[2017-12-27] MEDS: ZINC OXIDE 20% OINT 28.4 GM TUBE TOPICAL SCH ×2 (08:08→21:04)
[2017-12-27] MEDS: HYDROcodone/APAP 5-325MG 1 EACH TAB PO PRN ×4 (08:11→21:42)
[2017-12-27 08:19] LABS: Anisocytosis Slight; Basophils % (A) 0 %; Eosinophils # (A) 0.3 k/uL (0-0.7); Eosinophils % (A) 3 %; HCT 39.2 % (34.0-46.0); HGB 11.7 gm/dL (11.4-16.0); Hypochromasia Marked; Lymphocytes # (A) 2.3 k/uL (1.0-4.8); Lymphocytes % (A) 29 %; MCH 25.5 pg (25.0-35.0); MCHC 29.9 g/dL (31.0-37.0); MCV 85.2 fL (80.0-100.0); Mean Platelet Volume 7.3; Monocytes # (A) 0.5 k/uL (0-1.0); Monocytes % (A) 7 %; Neutrophils # (A) 4.5 k/uL (1.3-7.7); Neutrophils % (A) 58 %; Platelet Count 319 k/uL (150-450); RDW 18.4 % (11.5-15.5); WBC 7.8 k/uL (3.8-10.6)
[2017-12-27 08:21] LABS: Albumin 3.4 g/dL (3.5-5.0); Calcium 9.2 mg/dL (8.4-10.2); Potassium 4.8 mmol/L (3.5-5.1); Total Bilirubin 0.6 mg/dL (0.2-1.3); Total Protein 5.8 g/dL (6.3-8.2)
--- NOTE | 2017-12-27 13:13 | P.DS ---
Providers Date of admission: 12/23/17 14:02 Expected date of discharge: 12/27/17 Attending physician: Abelardo Kelly Consults: 12/21/17 00:39 Consult Physician Urgent Consulting Provider: Connor Bernal Consult Reason/Comments: Chest pain Do you want consulting provider notified?: Yes Primary care physician: [facility] Course: 1. Intermittent episodes of chest pain concerning for angina. Patient no longer reporting chest pain. Cardiac catheterization shows patent stents of the LAD and RCA with mild disease of the left main.12-lead EKG showed no acute ischemic changes. Troponin was normal. 2. Underlying chronic atrial fibrillation, maintained on amiodarone and metoprolol. 3. History of CVA/stroke 4. Chronic Diastolic heart failure 5. Large bruise involving the right abdominal wall, patient's hemoglobin is stable. Computed tomography scan of the abdomen last week with no he evidence of hematoma. Improving significantly 6. Underlying COPD with no evidence of exacerbation 7. Chronic hypoxic respiratory failure on home O2 8. Hypothyroidism on Synthroid 9. History of coronary artery disease with with a history of stent placement 10. underlying vascular dementia 11. Severe peripheral vascular occlusive disease with multiple stent placement 12. Hypotension: Cardiology adjusted medications Imdur was discontinued and Lopressor decreased to 12.5 mg twice a day. Blood pressures have shown improvement. 13. Large left groin hematoma. Ultrasound showed no pseudoaneurysm was positive for hematoma. 14. Candidiasis of the groin add nystatin powder 16. Dermatitis of the buttocks add zinc oxide Patient Condition at Discharge: Poor Plan - Discharge Summary Discharge Rx Participant: No New Discharge Prescriptions: New Metoprolol Tartrate [Lopressor] 12.5 mg PO BID #60 tab Nystatin 100,000 Unit/gm Powd [Mycostatin Powder] 1 applic TOPICAL BID #60 applic Zinc Oxide 20% Oint 1 applic TOPICAL BID #30 applic Continue PARoxetine HCL 30 mg PO HS OXcarbazepine [Trileptal] 150 mg PO HS Melatonin 3 mg PO HS Potassium Chloride [Klor-Con 10] 10 meq PO DAILY@1700 Pantoprazole Sodium [Protonix] 40 mg PO DAILY Montelukast [Singulair] 10 mg PO HS Magnesium Oxide [Mag-Ox] 400 mg PO DAILY@1700 Lurasidone HCl [Latuda] 20 mg PO DAILY Levothyroxine Sodium [Synthroid] 100 mcg PO DAILY@0600 Furosemide [Lasix] 40 mg PO DAILY@0600 Ferrous Sulfate [Iron (65 MG Elemental)] 325 mg PO DAILY@1700 Clopidogrel Bisulfate [Plavix] 75 mg PO DAILY Calcium Polycarbophil [Fibercon] 1,250 mg PO DAILY@1700 Atorvastatin Calcium [Lipitor] 20 mg PO DAILY@1700 Fluticasone/Vilanterol [Breo Ellipta 100-25 Mcg Inhaler] 1 puff INHALATION RT -DAILY Tiotropium [place] [Spiriva] 1 cap INHALATION RT-DAILY Rivaroxaban [Xarelto] 15 mg PO W/SUPPER #30 tab Albuterol Nebulized [Ventolin Nebulized] 2.5 mg INHALATION RT-QID nebu Nitroglycerin Sl Tabs [Nitrostat] 0.4 mg SUBLINGUAL Q5M PRN tab PRN Reason: Chest Pain Polyethylene Glycol 3350 [Miralax] 17 gm PO HS powd.pack Amiodarone [Cordarone] 200 mg PO DAILY tab HYDROcodone/APAP 5-325MG [[place] 5-325] 1 tab PO Q4HR PRN PRN Reason: Pain Lactose-Reduced Food [Ensure Plus] 240 ml PO BID@0800,1700 Multivitamins, Thera [Multivitamin (formulary)] 1 tab PO DAILY@1700 Docusate [Colace] 100 mg PO BID@0800,1700 PRN #0 PRN Reason: Constipation Discontinued Metoprolol Tartrate [Lopressor] 25 mg PO BID #60 tab Discharge Medication List PARoxetine HCL 30 mg PO HS 07/02/14 [History] OXcarbazepine [Trileptal] 150 mg PO HS 11/04/14 [History] Melatonin 3 mg PO HS 03/05/16 [History] Atorvastatin Calcium [Lipitor] 20 mg PO DAILY@1700 06/13/17 [History] Calcium Polycarbophil [Fibercon] 1,250 mg PO DAILY@1700 06/13/17 [History] Clopidogrel Bisulfate [Plavix] 75 mg PO DAILY 06/13/17 [History] Ferrous Sulfate [Iron (65 MG Elemental)] 325 mg PO DAILY@1700 06/13/17 [History] Furosemide [Lasix] 40 mg PO DAILY@0600 06/13/17 [History] Levothyroxine Sodium [Synthroid] 100 mcg PO DAILY@0600 10/22/17 [History] Lurasidone HCl [Latuda] 20 mg PO DAILY 06/13/17 [History] Magnesium Oxide [Mag-Ox] 400 mg PO DAILY@1700 06/13/17 [History] Montelukast [Singulair] 10 mg PO HS 06/13/17 [History] Pantoprazole Sodium [Protonix] 40 mg PO DAILY 06/13/17 [History] Potassium Chloride [Klor-Con 10] 10 meq PO DAILY@1700 06/13/17 [History] Fluticasone/Vilanterol [Breo Ellipta 100-25 Mcg Inhaler] 1 puff INHALATION RT- DAILY 06/14/17 [History] Tiotropium [place] [Spiriva] 1 cap INHALATION RT-DAILY 06/14/17 [History] Rivaroxaban [Xarelto] 15 mg PO W/SUPPER #30 tab 06/16/17 [Rx] Albuterol Nebulized [Ventolin Nebulized] 2.5 mg INHALATION RT-QID nebu [Rx] Nitroglycerin Sl Tabs [Nitrostat] 0.4 mg SUBLINGUAL Q5M PRN tab 12/01/17 [Rx] Polyethylene Glycol 3350 [Miralax] 17 gm PO HS powd.pack 12/01/17 [Rx] Amiodarone [Cordarone] 200 mg PO DAILY tab 12/10/17 [Rx] HYDROcodone/APAP 5-325MG [[place] 5-325] 1 tab PO Q4HR PRN 12/16/17 [History] Lactose-Reduced Food [Ensure Plus] 240 ml PO BID@0800,1700 12/16/17 [History] Multivitamins, Thera [Multivitamin (formulary)] 1 tab PO DAILY@1700 12/16/17 [ History] Docusate [Colace] 100 mg PO BID@0800,1700 PRN #0 12/17/17 [Rx] Metoprolol Tartrate [Lopressor] 12.5 mg PO BID #60 tab 12/27/17 [Rx] Nystatin 100,000 Unit/gm Powd [Mycostatin Powder] 1 applic TOPICAL BID #60 applic 12/27/17 [Rx] Zinc Oxide 20% Oint 1 applic TOPICAL BID #30 applic 12/27/17 [Rx] Follow up Appointment(s)/Referral(s): Connor Bernal MD [STAFF PHYSICIAN] - 1 Week Lolita Fraga DO [Primary Care Provider] - 1-2 days [facility] Visiting Nurse, [NON-STAFF] - 1 Week Discharge Disposition: HOME SELF-CARE
[2017-12-27 15:10] VITALS: RESP 16
[2017-12-27] MEDS: MAGNESIUM OXIDE 400 MG TAB PO SCH (16:48)
[2017-12-27] MEDS: MULTIVITAMINS, THERA 1 EACH TAB PO SCH (16:48)
[2017-12-27] MEDS: POTASSIUM CHLORIDE ER 10 MEQ TAB.ER.PRT PO SCH (16:48)
[2017-12-27] MEDS: FERROUS SULFATE 325 MG TAB PO SCH (16:48)
[2017-12-27] MEDS: MIDODRINE 5 MG TAB PO SCH (16:48)
[2017-12-27] MEDS: CALCIUM POLYCARBOPHIL 625 MG TAB PO SCH (16:49)
[2017-12-27] MEDS: ATORVASTATIN 20 MG TAB PO SCH (16:49)
[2017-12-27] MEDS: PARoxetine 10 MG TAB PO SCH (21:03)
[2017-12-27] MEDS: MONTELUKAST 10 MG TAB PO SCH (21:04)
[2017-12-27] MEDS: MELATONIN 3 MG TABLET PO SCH (21:04)
[2017-12-27] MEDS: OXcarbazepine 150 MG TAB PO SCH (21:04)
[2017-12-27] MEDS: POLYETHYLENE GLYCOL 3350 17 GM POWD.PACK PO SCH (21:04)
[2017-12-28] MEDS: HYDROcodone/APAP 5-325MG 1 EACH TAB PO PRN ×2 (01:38→05:44)
[2017-12-28] MEDS: LEVOTHYROXINE 100 MCG TAB PO SCH (05:44)
[2017-12-28 08:24] VITALS: BP 110/83; PULSE 86; TEMP 97.7
[2017-12-28] MEDS: ZINC OXIDE 20% OINT 28.4 GM TUBE TOPICAL SCH (08:41)
[2017-12-28] MEDS: MIDODRINE 5 MG TAB PO SCH ×2 (08:42→11:42)
[2017-12-28] MEDS: METOPROLOL TARTRATE 12.5 MG TAB PO SCH (08:42)
[2017-12-28] MEDS: ASPIRIN 325 MG TAB PO SCH (08:42)
[2017-12-28] MEDS: PANTOPRAZOLE 40 MG TABLET PO SCH (08:42)
[2017-12-28] MEDS: NYSTATIN 100,000 UNIT/GM POWD 15 GM TOPICAL SCH (08:42)
[2017-12-28] MEDS: LURASIDONE 40 MG TAB PO SCH (08:42)
[2017-12-28] MEDS: AMIODARONE 200 MG TAB PO SCH (08:43)
[2017-12-28] MEDS: BREO ELLIPTA INHALATION SCH (08:53)
[2017-12-28] MEDS: ALBUTEROL NEBULIZED 2.5 MG/3 ML INHALATION SCH ×2 (08:54→10:57)
[2017-12-28] MEDS: SPIRIVA 18 MCG INHALATION SCH (08:54)
== END 2017-12-28 14:55 | DRG 287 ==
LOC: EC 21:11 → 3OBS 12-21 00:39 → OBSVTOIN 12-23 14:02 → 5MS5E 12-24 19:47
PROVIDERS: ADMIT Internal Medicine; ATTEND Internal Medicine
PROC: B211YZZ Fluoroscopy of Multiple Coronary Arteries using Other Contrast (ICD-10-PCS; 2017-12-22)
PROC: 4A023N7 Measurement of Cardiac Sampling and Pressure, Left Heart, Percutaneous Approach (ICD-10-PCS; principal; 2017-12-22 13:15)
DX: I25.119 Atherosclerotic heart disease of native coronary artery with unspecified angina pectoris (principal); I50.32 Chronic diastolic (congestive) heart failure; J96.11 Chronic respiratory failure with hypoxia; I69.351 Hemiplegia and hemiparesis following cerebral infarction affecting right dominant side; I95.9 Hypotension, unspecified; I11.0 Hypertensive heart disease with heart failure; I48.2 Chronic atrial fibrillation; B37.2 Candidiasis of skin and nail; F17.200 Nicotine dependence, unspecified, uncomplicated; J44.9 Chronic obstructive pulmonary disease, unspecified; F01.50 Vascular dementia, unspecified severity, without behavioral disturbance, psychotic disturbance, mood disturbance, and anxiety; R40.2362 Coma scale, best motor response, obeys commands, at arrival to emergency department; R40.2142 Coma scale, eyes open, spontaneous, at arrival to emergency department; R40.2252 Coma scale, best verbal response, oriented, at arrival to emergency department; S30.1XXA Contusion of abdominal wall, initial encounter; E86.0 Dehydration; T46.2X5A Adverse effect of other antidysrhythmic drugs, initial encounter; T44.7X5A Adverse effect of beta-adrenoreceptor antagonists, initial encounter; I70.201 Unspecified atherosclerosis of native arteries of extremities, right leg; K21.9 Gastro-esophageal reflux disease without esophagitis; M19.91 Primary osteoarthritis, unspecified site; E78.5 Hyperlipidemia, unspecified; E03.9 Hypothyroidism, unspecified; G50.0 Trigeminal neuralgia; G89.29 Other chronic pain; M54.9 Dorsalgia, unspecified; K58.2 Mixed irritable bowel syndrome; H52.201 Unspecified astigmatism, right eye; G47.33 Obstructive sleep apnea (adult) (pediatric); G25.81 Restless legs syndrome; L30.9 Dermatitis, unspecified; I25.2 Old myocardial infarction; Z99.81 Dependence on supplemental oxygen; Z79.02 Long term (current) use of antithrombotics/antiplatelets; Z79.01 Long term (current) use of anticoagulants; Z79.890 Hormone replacement therapy; Z79.51 Long term (current) use of inhaled steroids; Z79.899 Other long term (current) drug therapy; Z71.6 Tobacco abuse counseling; Z90.49 Acquired absence of other specified parts of digestive tract; Z90.710 Acquired absence of both cervix and uterus; Z95.5 Presence of coronary angioplasty implant and graft; Z95.828 Presence of other vascular implants and grafts; Z86.010 Personal history of colon polyps; Z90.5 Acquired absence of kidney; Z87.440 Personal history of urinary (tract) infections; Z85.42 Personal history of malignant neoplasm of other parts of uterus; Z85.528 Personal history of other malignant neoplasm of kidney; Z86.19 Personal history of other infectious and parasitic diseases; Z90.6 Acquired absence of other parts of urinary tract; Z88.0 Allergy status to penicillin; Z88.8 Allergy status to other drugs, medicaments and biological substances; Z91.040 Latex allergy status; Z82.5 Family history of asthma and other chronic lower respiratory diseases; Z82.49 Family history of ischemic heart disease and other diseases of the circulatory system; Z83.49 Family history of other endocrine, nutritional and metabolic diseases
CPT/HCPCS: 36415; 71046; 80048; 80053; 80061; 81003; 82150; 82550; 82553; 83690; 83735; 84484; 85025; 85379; 85610; 85730; 87086; 93005; 93458; 93975; 94640; 94760; 96374; 99285

== ENCOUNTER 2018-01-08 22:16 | Inpatient (IN) | payer MEDICARE, OTHER ==
[2018-01-08] MEDS ORDERED: NITROGLYCERIN OINT 1 INCH/GM PACKET TOPICAL STA (22:52)
[2018-01-08] MEDS ORDERED: ASPIRIN 81 MG PO STA (22:52)
[2018-01-08] MEDS ORDERED: ACETAMINOPHEN TAB 500 MG TAB PO STA (22:53)
--- NOTE | 2018-01-08 22:56 | ED ---
General Adult HPI - General Chief complaint: Shortness of Breath Stated complaint: chest pain Time Seen by Provider: 01/08/18 22:25 Source: patient, RN notes reviewed Mode of arrival: EMS Limitations: no limitations - History of Present Illness Initial comments: This is a 67-year-old female who presents to the emergency department with a past medical history significant for high cholesterol. Patient states she also used to be a smoker and occasionally has difficulty breathing. Patient comes in today because she started having chest pain about 3:00 this afternoon he continues currently. Patient states she is having some shortness of breath associated with. Patient denies any sweating or nausea. Patient denies any radiation of the pain. Patient states she's on oxygen between 2 and 3 L at home 24 hours a day. Patient denies any recent fever or chills she does have a dry cough occasionally. Patient denies any abdominal pain patient denies any diarrhea. Patient states she had no calf pain or leg swelling. - Related Data Home Medications Medication Instructions Recorded Confirmed PARoxetine HCL 30 mg PO HS 07/02/14 01/08/18 OXcarbazepine [Trileptal] 150 mg PO HS 11/04/14 01/08/18 Melatonin 3 mg PO HS 03/05/16 01/08/18 Atorvastatin Calcium [Lipitor] 20 mg PO DAILY@1700 06/13/17 01/08/18 Calcium Polycarbophil [Fibercon] 1,250 mg PO DAILY@1700 06/13/17 01/08/18 Ferrous Sulfate [Iron (65 MG 325 mg PO DAILY@1700 06/13/17 01/08/18 Elemental)] Furosemide [Lasix] 40 mg PO DAILY@0600 06/13/17 01/08/18 Levothyroxine Sodium [Synthroid] 100 mcg PO DAILY@0600 06/13/17 01/08/18 Lurasidone HCl [Latuda] 20 mg PO DAILY 06/13/17 01/08/18 Magnesium Oxide [Mag-Ox] 400 mg PO DAILY@1700 06/13/17 01/08/18 Montelukast [Singulair] 10 mg PO HS 06/13/17 01/08/18 Pantoprazole Sodium [Protonix] 40 mg PO DAILY 06/13/17 01/08/18 Potassium Chloride [Klor-Con 10] 10 meq PO DAILY@1700 06/13/17 01/08/18 Fluticasone/Vilanterol [Breo 1 puff INHALATION RT-DAILY 06/14/17 01/08/18 Ellipta 100-25 Mcg Inhaler] Tiotropium Altair [Spiriva] 1 cap INHALATION RT-DAILY 06/14/17 01/08/18 Lactose-Reduced Food [Ensure Plus] 240 ml PO BID@0800,1700 12/16/17 01/08/18 Multivitamins, Thera [Multivitamin 1 tab PO DAILY@1700 12/16/17 01/08/18 (formulary)] Previous Rx's Medication Instructions Recorded Rivaroxaban [Xarelto] 15 mg PO W/SUPPER #30 tab 06/16/17 Albuterol Nebulized [Ventolin 2.5 mg INHALATION RT-QID nebu 12/01/17 Nebulized] Nitroglycerin Sl Tabs [Nitrostat] 0.4 mg SUBLINGUAL Q5M PRN tab 12/01/17 Polyethylene Glycol 3350 [Miralax] 17 gm PO HS powd.pack 12/01/17 Amiodarone [Cordarone] 200 mg PO DAILY tab 12/10/17 Docusate [Colace] 100 mg PO BID@0800,1700 PRN #0 12/17/17 Metoprolol Tartrate [Lopressor] 12.5 mg PO BID #60 tab 12/27/17 Nystatin 100,000 Unit/gm Powd 1 applic TOPICAL BID #60 applic 12/27/17 [Mycostatin Powder] Zinc Oxide 20% Oint 1 applic TOPICAL BID #30 applic 12/27/17 HYDROcodone/APAP 5-325MG [Stanton 1 tab PO Q4HR PRN #60 tab 12/28/17 5-325] Midodrine [ProAmatine] 5 mg PO TID #90 tablet 12/28/17 Allergies Allergy/AdvReac Type Severity Reaction Status Date / Time albuterol Allergy Rash/Hives Verified 01/08/18 22:31 latex Allergy Rash/Hives Verified 01/08/18 22:31 Penicillins Allergy Unknown Verified 01/08/18 22:31 Childhood Review of Systems ROS Statement: Those systems with pertinent positive or pertinent negative responses have been documented in the HPI. ROS Other: All systems not noted in ROS Statement are negative. Past Medical History Past Medical History: Atrial Fibrillation, Asthma, Coronary Artery Disease (CAD) , Cancer, COPD, CVA/TIA, Eye Disorder, GERD/Reflux, Hyperlipidemia, Hypertension , Memory Impairment, Myocardial Infarction (RI), Osteoarthritis (OA), Respiratory Disorder, Sleep Apnea/CPAP/BIPAP, Thyroid Disorder, Vascular Disorder Additional Past Medical History / Comment(s): febrile, recent UTI, hypotensive. Other hx: Home O2 prn but ATC lately, CVA x 3 with R arm and R leg weakness , vascular dementia, R trigeminal neuralgia, R eye astigmatism, occluded JOSE ALEJANDRO, PVD, past htn but b/ps running low now, IBS, diarrhea/constipation, chronic abdominal pain, chronic back pain, migraines-none recently, one hip higher, RLS , tremors, CHANDU without device (unable to tolerate), UTIs, hypothyroid, nasopharyngeal inflammatory mass, TMJ yrs ago, R kidney cancer and uterine cancer with surgeries. Last Myocardial Infarction Date:: 11/03/14 History of Any Multi-Drug Resistant Organisms: None Reported Date of last positivie culture/infection: None MDRO Source:: None Past Surgical History: Adenoidectomy, Bladder Surgery, Cholecystectomy, Ear Surgery, Heart Catheterization With Stent, Hysterectomy, Orthopedic Surgery, Tonsillectomy Additional Past Surgical History / Comment(s): 11/28/14 PTCA with stents, left CAROTID ENDARTERECTOMY, MULTIPLE BILATERAL STENTS IN LOWER EXTREMITIES, R elbow surgery as a child, R ear surgery for blockage, bilateral ankle arthroscopies, bilateral knee arthroscopies, deviated septal surgery, L great toe pinned, colonoscopies/benign polypectomy, R nephrectomy and partial bladder removal, skin lesion from nose. Past Anesthesia/Blood Transfusion Reactions: Motion Sickness Date of Last Stent Placement:: 10/2014 Past Psychological History: Bipolar Smoking Status: Former smoker Past Alcohol Use History: None Reported Past Drug Use History: None Reported - Past Family History Mother Family Medical History: COPD Additional Family Medical History / Comment(s): Mother is . She from respiratory failure. Father Family Medical History: Coronary Artery Disease (CAD), Myocardial Infarction (RI ) Additional Family Medical History / Comment(s): Father had gout General Exam - General Exam Comments Initial Comments: GENERAL: Patient is well-developed and well-nourished. Patient is nontoxic and well- hydrated and is in mild distress. ENT: Neck is soft and supple. No significant lymphadenopathy is noted. Oropharynx is clear. Moist mucous membranes. Neck has full range of motion without eliciting any pain. EYES: The sclera were anicteric and conjunctiva were pink and moist. Extraocular movements were intact and pupils were equal round and reactive to light. Eyelids were unremarkable. PULMONARY: Unlabored respirations. Good breath sounds bilaterally. No audible rales rhonchi or wheezing was noted. CARDIOVASCULAR: There is a regular rate and rhythm without any murmurs gallops or rubs. ABDOMEN: Soft and nontender with normal bowel sounds. No palpable organomegaly was noted. There is no palpable pulsatile mass. SKIN: Skin is clear with no lesions or rashes and otherwise unremarkable. NEUROLOGIC: Patient is alert and oriented x3. Cranial nerves II through XII are grossly intact. Motor and sensory are also intact. Normal speech, volume and content. Symmetrical smile. Cerebellar exam grossly intact. MUSCULOSKELETAL: Normal extremities with adequate strength and full range of motion. No lower extremity swelling or edema. No calf tenderness. LYMPHATICS: No significant lymphadenopathy is noted PSYCHIATRIC: Normal psychiatric evaluation. Normal interpersonal interactions appears functionally intact in deals appropriately with others. No signs of depression. No signs of anxiety. Limitations: no limitations Course Vital Signs 01/08/18 01/08/18 01/08/18 22:24 22:31 23:30 Temperature 100.7 F H Pulse Rate 69 67 Respiratory 22 24 20 Rate Blood Pressure 112/60 97/66 O2 Sat by Pulse 97 97 Oximetry 01/09/18 01/09/18 00:07 02:33 Temperature 99.3 F Pulse Rate 65 64 Respiratory 18 18 Rate Blood Pressure 108/65 123/74 O2 Sat by Pulse 98 97 Oximetry Medical Decision Making - Medical Decision Making EKG shows normal sinus rhythm at 72 bpm OR interval 172 QRS is 130 QTC intervals 476 QTC is 521. Patient's EKG shows a right bundle branch block. There is no ST segment elevation or depression. Chest x-ray shows no acute abnormality. CT of the chest shows no pulmonary embolism but probable pulmonary fibrosis. Patient did receive some steroids and breathing treatment in the emergency department she stated she thought that helped a little. I spoke with Dr. Kelly he agreed to admit the patient admitted the patient. - Lab Data Result diagrams: 01/08/18 22:40 01/08/18 22:40 Lab Results 01/08/18 01/08/18 01/08/18 Range/Units 22:40 22:40 22:40 WBC 11.9 H (3.8-10.6) k/uL RBC 4.00 (3.80-5.40) m/uL Hgb 10.4 L (11.4-16.0) gm/dL Hct 34.3 (34.0-46.0) % MCV 85.8 (80.0-100.0) fL MCH 26.1 (25.0-35.0) pg MCHC 30.4 L (31.0-37.0) g/dL RDW 19.8 H (11.5-15.5) % Plt Count 403 (150-450) k/uL Neutrophils % 77 % Lymphocytes % 15 % Monocytes % 6 % Eosinophils % 1 % Basophils % 0 % Neutrophils # 9.2 H (1.3-7.7) k/uL Lymphocytes # 1.8 (1.0-4.8) k/uL Monocytes # 0.7 (0-1.0) k/uL Eosinophils # 0.1 (0-0.7) k/uL Basophils # 0.0 (0-0.2) k/uL Hypochromasia Moderate Anisocytosis Slight PT (9.0-12.0) sec INR (<1.2) APTT (22.0-30.0) sec D-Dimer (<0.60) mg/L FEU Sodium 136 L (137-145) mmol/L Potassium 5.1 (3.5-5.1) mmol/L Chloride 99 (98-107) mmol/L Carbon Dioxide 23 (22-30) mmol/L Anion Gap 14 mmol/L BUN 18 H (7-17) mg/dL Creatinine 1.10 H (0.52-1.04) mg/dL Est GFR (CKD-EPI)AfAm 61 (>60 ml/min/1.73 sqM) Est GFR (CKD-EPI)NonAf 53 (>60 ml/min/1.73 sqM) Glucose 53 L (74-99) mg/dL Plasma Lactic Acid Joshua (0.7-2.0) mmol/L Calcium 8.7 (8.4-10.2) mg/dL Magnesium 1.9 (1.6-2.3) mg/dL Total Bilirubin 0.4 (0.2-1.3) mg/dL AST 38 H (14-36) U/L ALT 24 (9-52) U/L Alkaline Phosphatase 106 (38-126) U/L Total Creatine Kinase <20 L (30-135) U/L CK-MB (CK-2) 0.4 (0.0-2.4) ng/mL CK-MB (CK-2) Rel Index Troponin I <0.012 (0.000-0.034) ng/mL Total Protein 5.6 L (6.3-8.2) g/dL Albumin 3.1 L (3.5-5.0) g/dL Urine Color Urine Appearance (Clear) Urine pH (5.0-8.0) Ur Specific [place] (1.001-1.035) Urine Protein (Negative) Urine Glucose (UA) (Negative) Urine Ketones (Negative) Urine Blood (Negative) Urine Nitrite (Negative) Urine Bilirubin (Negative) Urine Urobilinogen (<2.0) mg/dL Ur Leukocyte Esterase (Negative) Urine RBC (0-5) /hpf Urine WBC (0-5) /hpf Ur Squamous Epith Cells (0-4) /hpf Urine Bacteria (None) /hpf Hyaline Casts (0-2) /lpf Urine Mucus (None) /hpf 01/08/18 01/08/18 01/08/18 Range/Units 22:40 22:40 22:40 WBC (3.8-10.6) k/uL RBC (3.80-5.40) m/uL Hgb (11.4-16.0) gm/dL Hct (34.0-46.0) % MCV (80.0-100.0) fL MCH (25.0-35.0) pg MCHC (31.0-37.0) g/dL RDW (11.5-15.5) % Plt Count (150-450) k/uL Neutrophils % % Lymphocytes % % Monocytes % % Eosinophils % % Basophils % % Neutrophils # (1.3-7.7) k/uL Lymphocytes # (1.0-4.8) k/uL Monocytes # (0-1.0) k/uL Eosinophils # (0-0.7) k/uL Basophils # (0-0.2) k/uL Hypochromasia Anisocytosis PT 14.2 H (9.0-12.0) sec INR 1.5 H (<1.2) APTT 29.8 (22.0-30.0) sec D-Dimer 1.84 H (<0.60) mg/L FEU Sodium (137-145) mmol/L Potassium (3.5-5.1) mmol/L Chloride (98-107) mmol/L Carbon Dioxide (22-30) mmol/L Anion Gap mmol/L BUN (7-17) mg/dL Creatinine (0.52-1.04) mg/dL Est GFR (CKD-EPI)AfAm (>60 ml/min/1.73 sqM) Est GFR (CKD-EPI)NonAf (>60 ml/min/1.73 sqM) Glucose (74-99) mg/dL Plasma Lactic Acid Joshua 1.8 (0.7-2.0) mmol/L Calcium (8.4-10.2) mg/dL Magnesium (1.6-2.3) mg/dL Total Bilirubin (0.2-1.3) mg/dL AST (14-36) U/L ALT (9-52) U/L Alkaline Phosphatase (38-126) U/L Total Creatine Kinase (30-135) U/L CK-MB (CK-2) (0.0-2.4) ng/mL CK-MB (CK-2) Rel Index Troponin I (0.000-0.034) ng/mL Total Protein (6.3-8.2) g/dL Albumin (3.5-5.0) g/dL Urine Color Urine Appearance (Clear) Urine pH (5.0-8.0) Ur Specific [place] (1.001-1.035) Urine Protein (Negative) Urine Glucose (UA) (Negative) Urine Ketones (Negative) Urine Blood (Negative) Urine Nitrite (Negative) Urine Bilirubin (Negative) Urine Urobilinogen (<2.0) mg/dL Ur Leukocyte Esterase (Negative) Urine RBC (0-5) /hpf Urine WBC (0-5) /hpf Ur Squamous Epith Cells (0-4) /hpf Urine Bacteria (None) /hpf Hyaline Casts (0-2) /lpf Urine Mucus (None) /hpf 05/20/18 Range/Units 00:34 WBC (3.8-10.6) k/uL RBC (3.80-5.40) m/uL Hgb (11.4-16.0) gm/dL Hct (34.0-46.0) % MCV (80.0-100.0) fL MCH (25.0-35.0) pg MCHC (31.0-37.0) g/dL RDW (11.5-15.5) % Plt Count (150-450) k/uL Neutrophils % % Lymphocytes % % Monocytes % % Eosinophils % % Basophils % % Neutrophils # (1.3-7.7) k/uL Lymphocytes # (1.0-4.8) k/uL Monocytes # (0-1.0) k/uL Eosinophils # (0-0.7) k/uL Basophils # (0-0.2) k/uL Hypochromasia Anisocytosis PT (9.0-12.0) sec INR (<1.2) APTT (22.0-30.0) sec D-Dimer (<0.60) mg/L FEU Sodium (137-145) mmol/L Potassium (3.5-5.1) mmol/L Chloride (98-107) mmol/L Carbon Dioxide (22-30) mmol/L Anion Gap mmol/L BUN (7-17) mg/dL Creatinine (0.52-1.04) mg/dL Est GFR (CKD-EPI)AfAm (>60 ml/min/1.73 sqM) Est GFR (CKD-EPI)NonAf (>60 ml/min/1.73 sqM) Glucose (74-99) mg/dL Plasma Lactic Acid Joshua (0.7-2.0) mmol/L Calcium (8.4-10.2) mg/dL Magnesium (1.6-2.3) mg/dL Total Bilirubin (0.2-1.3) mg/dL AST (14-36) U/L ALT (9-52) U/L Alkaline Phosphatase (38-126) U/L Total Creatine Kinase (30-135) U/L CK-MB (CK-2) (0.0-2.4) ng/mL CK-MB (CK-2) Rel Index Troponin I (0.000-0.034) ng/mL Total Protein (6.3-8.2) g/dL Albumin (3.5-5.0) g/dL Urine Color Yellow Urine Appearance Cloudy H (Clear) Urine pH 6.0 (5.0-8.0) Ur Specific [place] 1.013 (1.001-1.035) Urine Protein 1+ H (Negative) Urine Glucose (UA) Negative (Negative) Urine Ketones Negative (Negative) Urine Blood Trace H (Negative) Urine Nitrite Positive H (Negative) Urine Bilirubin Negative (Negative) Urine Urobilinogen <2.0 (<2.0) mg/dL Ur Leukocyte Esterase Large H (Negative) Urine RBC 9 H (0-5) /hpf Urine WBC >182 H (0-5) /hpf Ur Squamous Epith Cells 4 (0-4) /hpf Urine Bacteria Rare H (None) /hpf Hyaline Casts 1 (0-2) /lpf Urine Mucus Rare H (None) /hpf Disposition Clinical Impression: Chest pain, Pulmonary fibrosis Disposition: ADMITTED IP TO THIS HOSP Referrals: Pam Tamayo MD [STAFF PHYSICIAN] - 1-2 days Time of Disposition: 02:58
[2018-01-08 23:08] LABS: Anisocytosis Slight; Basophils % (A) 0 %; Eosinophils # (A) 0.1 k/uL (0-0.7); Eosinophils % (A) 1 %; HCT 34.3 % (34.0-46.0); HGB 10.4 gm/dL (11.4-16.0); Hypochromasia Moderate; Lymphocytes # (A) 1.8 k/uL (1.0-4.8); Lymphocytes % (A) 15 %; MCH 26.1 pg (25.0-35.0); MCHC 30.4 g/dL (31.0-37.0); MCV 85.8 fL (80.0-100.0); Mean Platelet Volume 6.8; Monocytes # (A) 0.7 k/uL (0-1.0); Monocytes % (A) 6 %; Neutrophils # (A) 9.2 k/uL (1.3-7.7); Neutrophils % (A) 77 %; Platelet Count 403 k/uL (150-450); RDW 19.8 % (11.5-15.5); WBC 11.9 k/uL (3.8-10.6)
[2018-01-08 23:23] LABS: INR 1.5 (<1.2); Partial Thromboplastin Time 29.8 sec (22.0-30.0); Prothrombin Time 14.2 sec (9.0-12.0)
[2018-01-08 23:37] LABS: Albumin 3.1 g/dL (3.5-5.0); Calcium 8.7 mg/dL (8.4-10.2); Creatine Kinase <20 U/L (30-135); Magnesium 1.9 mg/dL (1.6-2.3); Potassium 5.1 mmol/L (3.5-5.1); Total Bilirubin 0.4 mg/dL (0.2-1.3); Total Protein 5.6 g/dL (6.3-8.2)
[2018-01-08 23:49] LABS: Creatine Kinase MB 0.4 ng/mL (0.0-2.4); Troponin I <0.012 ng/mL (0.000-0.034)
--- NOTE | 2018-01-09 00:41 | XR ---
EXAMINATION TYPE: XR chest 2V DATE OF EXAM: 01/08/2018 COMPARISON: 12/20/2017 HISTORY: Left side chest pain TECHNIQUE: Frontal and lateral views of the chest are obtained. FINDINGS: There is coarsening of interstitial pulmonary markings. Heart is enlarged. There are chest leads. Thoracic aorta is atheromatous. There is no pleural effusion. IMPRESSION: Coarse lung markings. No pleural fluid seen. This is probably due to pulmonary interstit ial fibrosis without change compared to last exam. No gross heart failure.
[2018-01-09 00:58] LABS: Appearance,Urine Cloudy (Clear); Bacteria,Urine Rare /hpf; Bilirubin,Urine Negative (Negative); Blood,Urine Trace (Negative); Color,Urine Yellow; Glucose,Urine (UA) Negative (Negative); Hyaline Casts,Urine 1 /lpf (0-2); Ketones,Urine Negative (Negative); Leukocyte Esterase,Urine Large (Negative); Mucus,Urine Rare /hpf; Nitrite,Urine Positive (Negative); Protein,Urine 1+ (Negative); RBC,Urine 9 /hpf (0-5); Specific Gravity,Urine 1.013 (1.001-1.035); Squamous Epithelial Cell,Urine 4 /hpf (0-4); Urobilinogen,Urine <2.0 mg/dL (<2.0); WBC,Urine >182 /hpf (0-5)
[2018-01-09] MEDS ORDERED: RX INFO: IV CONTRAST WAS GIVEN 1 EACH MISC MISCELLANE PRN (01:05)
[2018-01-09] MEDS ORDERED: SODIUM CHLORIDE 0.9% 500 ML IV ONE (01:47)
--- NOTE | 2018-01-09 02:22 | CT ---
EXAMINATION TYPE: CT chest angio for PE DATE OF EXAM: 01/09/2018 COMPARISON: NONE HISTORY: chest pain, KIMBERLY, elevated D-dimer CT DLP: 334.30 mGycm Automated exposure control for dose reduction was used. CONTRAST: CT Chest for pulmonary embolism performed with with IV Contrast, patient injected with 75 mL of Isovu e [id number]. FINDINGS: There are 3-D post processed images. There is coarse interstitial infiltrates throughout the lungs. There is a 1 x 2 cm stellate infiltrat e in the right upper lobe. There are multiple enlarged mediastinal lymph nodes. These measure up to 1.8 cm. Thoracic aorta is at heromatous. There is 2.5 cm subcarinal lymph node. I see no filling defects in the pulmonary arteries. There is no pericardial effusion. There is no ple ural effusion. There is minimal pleural thickening at the lung bases. There are some enlarged bronchi al lymph nodes that measure up to 2.5 cm. The bony thorax is intact. IMPRESSION: No evidence of pulmonary embolism. Extensive interstitial pulmonary density consistent with advanced fibrosis. Mediastinal and bronchial adenopathy. Appearance could relate to sarcoidosis. There is a stellate right upper lobe infiltrate and I think some degree of follow-up is warranted.
[2018-01-09] MEDS ORDERED: cefTRIAXone IN SWFI 1,000 MG/10 ML SYRINGE IVP STA (02:40)
[2018-01-09] MEDS ORDERED: methylPREDNISolone SOD SUCCI 125 MG/2 ML VIAL IV STA (02:41)
[2018-01-09] MEDS ORDERED: IPRATROPIUM-ALBUTEROL 3 ML NEB INHALATION STA (02:41)
[2018-01-09] MEDS ORDERED: NITROGLYCERIN SL TABS 0.4 MG TAB SUBLINGUAL PRN ×2 (02:58→15:32)
[2018-01-09] MEDS: ALBUTEROL NEBULIZED 2.5 MG/3 ML INHALATION SCH ×5 (04:02→19:27)
[2018-01-09 05:59] LABS: Creatine Kinase <20 U/L (30-135)
[2018-01-09 06:10] LABS: Creatine Kinase MB 0.5 ng/mL (0.0-2.4); Troponin I <0.012 ng/mL (0.000-0.034)
[2018-01-09] MEDS: NITROGLYCERIN OINT 1 INCH/GM PACKET TOPICAL SCH ×4 (07:11→23:24)
[2018-01-09] MEDS ORDERED: ASPIRIN 325 MG TAB PO SCH (09:00)
[2018-01-09 12:40] LABS: Creatine Kinase <20 U/L (30-135)
[2018-01-09 12:54] LABS: Creatine Kinase MB 0.5 ng/mL (0.0-2.4); Troponin I <0.012 ng/mL (0.000-0.034)
[2018-01-09] MEDS ORDERED: ALBUTEROL NEBULIZED 2.5 MG/3 ML INHALATION PRN (15:32)
--- NOTE | 2018-01-09 15:49 | P.HPIM ---
History of Present Illness H&P Date: 01/09/18 Chief Complaint: Chest pain and shortness of breath Kathy Mckeon is a 67-year-old female who presented to [facility] emergency room with a chief complaint of chest pain that started at 3 PM on 01/08/2018 patient was also having shortness of breath she was evaluated in the emergency room and was admitted to telemetry floor for further evaluation and treatment. In the emergency room patient had an EKG that revealed normal sinus rhythm with right bundle branch block, 3 sets of troponin were negative. Patient also had elevated d-dimer computed tomography scan angiogram of the chest and was negative for pulmonary embolism. Chest x-ray was suspicious for pulmonary fibrosis without evidence of pneumonia or overt heart failure. Patient has a known history of hypertension, hypothyroidism, hyperlipidemia, atrial fibrillation, and previous history of stroke. Patient also has a known history of coronary artery disease with previous history of stent placement. She also has a known history of peripheral vascular occlusive disease with multiple stent placement in the lower extremities in the past. Past Medical History Past Medical History: Atrial Fibrillation, Asthma, Coronary Artery Disease (CAD) , Cancer, COPD, CVA/TIA, Eye Disorder, GERD/Reflux, Hyperlipidemia, Hypertension , Memory Impairment, Myocardial Infarction ([place]), Osteoarthritis (OA), Respiratory Disorder, Sleep Apnea/CPAP/BIPAP, Thyroid Disorder, Vascular Disorder Additional Past Medical History / Comment(s): febrile, recent UTI, hypotensive. Other hx: Home O2 prn but ATC lately, CVA x 3 with R arm and R leg weakness , vascular dementia, R trigeminal neuralgia, R eye astigmatism, occluded JOSE ALEJANDRO, PVD, past htn but b/ps running low now, IBS, diarrhea/constipation, chronic abdominal pain, chronic back pain, migraines-none recently, one hip higher, RLS , tremors, CHANDU without device (unable to tolerate), UTIs, hypothyroid, nasopharyngeal inflammatory mass, TMJ yrs ago, R kidney cancer and uterine cancer with surgeries. Last Myocardial Infarction Date:: 11/03/14 History of Any Multi-Drug Resistant Organisms: None Reported Date of last positivie culture/infection: None MDRO Source:: None Past Surgical History: Adenoidectomy, Bladder Surgery, Cholecystectomy, Ear Surgery, Heart Catheterization With Stent, Hysterectomy, Orthopedic Surgery, Tonsillectomy Additional Past Surgical History / Comment(s): 11/28/14 PTCA with stents, left CAROTID ENDARTERECTOMY, MULTIPLE BILATERAL STENTS IN LOWER EXTREMITIES, R elbow surgery as a child, R ear surgery for blockage, bilateral ankle arthroscopies, bilateral knee arthroscopies, deviated septal surgery, L great toe pinned, colonoscopies/benign polypectomy, R nephrectomy and partial bladder removal, skin lesion from nose. Past Anesthesia/Blood Transfusion Reactions: Motion Sickness Date of Last Stent Placement:: 10/2014 Past Psychological History: Bipolar Smoking Status: Former smoker Past Alcohol Use History: None Reported Past Drug Use History: None Reported - Past Family History Mother Family Medical History: COPD Additional Family Medical History / Comment(s): Mother is . She from respiratory failure. Father Family Medical History: Coronary Artery Disease (CAD), Myocardial Infarction ([place] ) Additional Family Medical History / Comment(s): Father had gout Medications and Allergies Home Medications Medication Instructions Recorded Confirmed Type PARoxetine HCL 30 mg PO HS 07/02/14 01/09/18 History OXcarbazepine [Trileptal] 150 mg PO HS 11/04/14 01/09/18 History Melatonin 3 mg PO HS 03/05/16 01/09/18 History Atorvastatin Calcium [Lipitor] 20 mg PO DAILY@1700 06/13/17 01/09/18 History Calcium Polycarbophil [Fibercon] 1,250 mg PO DAILY 06/13/17 01/09/18 History Ferrous Sulfate [Iron (65 MG 325 mg PO DAILY 06/13/17 01/09/18 History Elemental)] Furosemide [Lasix] 40 mg PO DAILY@0600 06/13/17 01/09/18 History Levothyroxine Sodium [Synthroid] 100 mcg PO DAILY@0600 06/13/17 01/09/18 History Lurasidone HCl [Latuda] 20 mg PO DAILY 06/13/17 01/09/18 History Magnesium Oxide [Mag-Ox] 400 mg PO DAILY 06/13/17 01/09/18 History Montelukast [Singulair] 10 mg PO HS 06/13/17 01/09/18 History Pantoprazole Sodium [Protonix] 40 mg PO DAILY 06/13/17 01/09/18 History Potassium Chloride [Klor-Con 10] 10 meq PO DAILY 06/13/17 01/09/18 History Tiotropium [place] [Spiriva] 1 cap INHALATION RT-DAILY 06/14/17 01/09/18 History Rivaroxaban [Xarelto] 15 mg PO W/SUPPER #30 tab 06/16/17 01/09/18 Rx Nitroglycerin Sl Tabs [Nitrostat] 0.4 mg SUBLINGUAL Q5M PRN tab 12/01/17 Rx Polyethylene Glycol 3350 [Miralax] 17 gm PO HS powd.pack 12/01/17 01/09/18 Rx Amiodarone [Cordarone] 200 mg PO DAILY tab 12/10/17 01/09/18 Rx Lactose-Reduced Food [Ensure Plus] 240 ml PO BID@0900,1700 12/16/17 01/09/18 History Multivitamins, Thera [Multivitamin 1 tab PO DAILY 12/16/17 01/09/18 History (formulary)] Docusate [Colace] 100 mg PO BID@0800,1700 PRN #0 12/17/17 01/09/18 Rx Metoprolol Tartrate [Lopressor] 12.5 mg PO BID #60 tab 12/27/17 01/09/18 Rx Nystatin 100,000 Unit/gm Powd 1 applic TOPICAL BID #60 applic 12/27/17 01/09/18 Rx [Mycostatin Powder] HYDROcodone/APAP 5-325MG [[place] 1 tab PO Q4HR PRN #60 tab 12/28/17 01/09/18 Rx 5-325] Midodrine [ProAmatine] 5 mg PO TID #90 tablet 12/28/17 01/09/18 Rx Albuterol Nebulized [Ventolin 2.5 mg INHALATION RT-Q8H PRN 01/09/18 01/09/18 History Nebulized] Dimethicone/Zinc Oxide [Inzo Zinc 1 applic TOPICAL BID 01/09/18 01/09/18 History Oxide Barrier Cream] Fluticasone/Vilanterol [Breo 1 puff INHALATION RT-DAILY 01/09/18 01/09/18 History Ellipta 100-25 Mcg Inhaler] Allergies Allergy/AdvReac Type Severity Reaction Status Date / Time albuterol Allergy Rash/Hives Verified 01/08/18 22:31 latex Allergy Rash/Hives Verified 01/09/18 12:46 Penicillins Allergy Unknown Verified 01/09/18 12:46 Childhood Physical Exam Vitals: Vital Signs Temp Pulse Resp BP Pulse Ox 01/09/18 15:32 98.8 F 89 18 113/72 93 L 01/09/18 14:50 97.8 F 84 20 113/75 92 L 01/09/18 10:17 98.1 F 74 18 139/90 95 01/09/18 07:29 82 18 128/82 97 01/09/18 04:48 98.8 F 69 18 149/96 98 01/09/18 03:26 97.5 F L 74 16 120/78 96 01/09/18 02:33 99.3 F 64 18 123/74 97 01/09/18 00:07 65 18 108/65 98 01/08/18 23:30 67 20 97/66 97 01/08/18 22:31 24 01/08/18 22:24 100.7 F H 69 22 112/60 97 Intake and Output 01/09/18 01/09/18 01/09/18 06:59 14:59 22:59 Other: Voiding Method Bedside Commode In general patient is alert responsive in no apparent distress HEENT head normocephalic and atraumatic Neck is supple no JVD no goiter no lymphadenopathy Chest exam reveals a few scattered crackles no wheezing Cardiac exam reveals regular heart sounds S1 and S2 no gallops no murmurs Abdomen is soft nontender no organomegaly with normal bowel sounds Extremity exam reveals no edema no cyanosis or clubbing Neurological examination reveals no gross focal deficits Results CBC & Chem 7: 01/08/18 22:40 01/08/18 22:40 Labs: Abnormal Lab Results - Last 24 Hours (Table) 01/08/18 01/08/18 01/08/18 Range/Units 22:40 22:40 22:40 WBC 11.9 H (3.8-10.6) k/uL Hgb 10.4 L (11.4-16.0) gm/dL MCHC 30.4 L (31.0-37.0) g/dL RDW 19.8 H (11.5-15.5) % Neutrophils # 9.2 H (1.3-7.7) k/uL PT (9.0-12.0) sec INR (<1.2) D-Dimer (<0.60) mg/L FEU Sodium 136 L (137-145) mmol/L BUN 18 H (7-17) mg/dL Creatinine 1.10 H (0.52-1.04) mg/dL Glucose 53 L (74-99) mg/dL AST 38 H (14-36) U/L Total Creatine Kinase <20 L (30-135) U/L Total Protein 5.6 L (6.3-8.2) g/dL Albumin 3.1 L (3.5-5.0) g/dL Urine Appearance (Clear) Urine Protein (Negative) Urine Blood (Negative) Urine Nitrite (Negative) Ur Leukocyte Esterase (Negative) Urine RBC (0-5) /hpf Urine WBC (0-5) /hpf Urine Bacteria (None) /hpf Urine Mucus (None) /hpf 01/08/18 01/08/18 01/09/18 Range/Units 22:40 22:40 00:34 WBC (3.8-10.6) k/uL Hgb (11.4-16.0) gm/dL MCHC (31.0-37.0) g/dL RDW (11.5-15.5) % Neutrophils # (1.3-7.7) k/uL PT 14.2 H (9.0-12.0) sec INR 1.5 H (<1.2) D-Dimer 1.84 H (<0.60) mg/L FEU Sodium (137-145) mmol/L BUN (7-17) mg/dL Creatinine (0.52-1.04) mg/dL Glucose (74-99) mg/dL AST (14-36) U/L Total Creatine Kinase (30-135) U/L Total Protein (6.3-8.2) g/dL Albumin (3.5-5.0) g/dL Urine Appearance Cloudy H (Clear) Urine Protein 1+ H (Negative) Urine Blood Trace H (Negative) Urine Nitrite Positive H (Negative) Ur Leukocyte Esterase Large H (Negative) Urine RBC 9 H (0-5) /hpf Urine WBC >182 H (0-5) /hpf Urine Bacteria Rare H (None) /hpf Urine Mucus Rare H (None) /hpf 01/09/18 01/09/18 Range/Units 04:52 11:34 WBC (3.8-10.6) k/uL Hgb (11.4-16.0) gm/dL MCHC (31.0-37.0) g/dL RDW (11.5-15.5) % Neutrophils # (1.3-7.7) k/uL PT (9.0-12.0) sec INR (<1.2) D-Dimer (<0.60) mg/L FEU Sodium (137-145) mmol/L BUN (7-17) mg/dL Creatinine (0.52-1.04) mg/dL Glucose (74-99) mg/dL AST (14-36) U/L Total Creatine Kinase <20 L <20 L (30-135) U/L Total Protein (6.3-8.2) g/dL Albumin (3.5-5.0) g/dL Urine Appearance (Clear) Urine Protein (Negative) Urine Blood (Negative) Urine Nitrite (Negative) Ur Leukocyte Esterase (Negative) Urine RBC (0-5) /hpf Urine WBC (0-5) /hpf Urine Bacteria (None) /hpf Urine Mucus (None) /hpf Assessment and Plan Plan: #1 worsening shortness of breath with oxygen desaturation, patient admitted through emergency room to telemetry floor, she was started on oxygen supplements , DuoNeb updrafts, and IV Solu-Medrol pulmonary and cardiology consultation requested #2 episode of chest pain EKG and cardiac enzymes do not reveal any evidence of acute myocardial infarction, cardiology consultation was requested #3 underlying history of atrial fibrillation #4 underlying history of hypertension #5 underlying history of hyperlipidemia #6 underlying history of COPD with probable acute exacerbation there is also suspicion of pulmonary fibrosis on chest x-ray #7 previous history of coronary artery disease with history of stent placement #8 previous history of peripheral vascular disease with history of stent placement in the lower extremities At this time patient is maintained on oxygen supplement, DuoNeb updrafts, and IV Solu-Medrol she is improving gradually pulmonary And cardiology consultation requested awaiting input will follow during this admission for medical management prognosis is guarded
[2018-01-09] MEDS ORDERED: MIDODRINE 5 MG TAB PO SCH (16:00)
[2018-01-09] MEDS ORDERED: NON-FORMULARY DRUG (Lactose-Reduced Food [Ensure Plus] 240 ML) PO SCH (17:00)
[2018-01-09] MEDS ORDERED: DOCUSATE 100 MG CAP PO PRN (17:00)
[2018-01-09] MEDS: FERROUS SULFATE 325 MG TAB PO SCH (17:49)
[2018-01-09] MEDS: LURASIDONE 40 MG TAB PO SCH (17:49)
[2018-01-09] MEDS: AMIODARONE 200 MG TAB PO SCH (17:49)
[2018-01-09] MEDS: RIVAROXABAN 15 MG TAB PO SCH (17:50)
[2018-01-09] MEDS: ATORVASTATIN 20 MG TAB PO SCH (17:50)
[2018-01-09] MEDS: MIDODRINE 5 MG TAB PO SCH (17:50)
[2018-01-09] MEDS: HYDROcodone/APAP 5-325MG 1 EACH TAB PO PRN ×2 (17:51→21:28)
[2018-01-09] MEDS: MELATONIN 3 MG TABLET PO SCH (20:38)
[2018-01-09] MEDS: OXcarbazepine 150 MG TAB PO SCH (20:38)
[2018-01-09] MEDS: MONTELUKAST 10 MG TAB PO SCH (20:38)
[2018-01-09] MEDS: METOPROLOL TARTRATE 12.5 MG TAB PO SCH (20:38)
[2018-01-09] MEDS: POLYETHYLENE GLYCOL 3350 17 GM POWD.PACK PO SCH (20:39)
[2018-01-09] MEDS: PARoxetine 10 MG TAB PO SCH (20:39)
[2018-01-09] MEDS: NYSTATIN 100,000 UNIT/GM POWD 15 GM TOPICAL SCH (20:40)
[2018-01-09] MEDS: ZINC OXIDE 20% OINT 28.4 GM TUBE TOPICAL SCH (20:40)
[2018-01-10] MEDS: ALBUTEROL NEBULIZED 2.5 MG/3 ML INHALATION SCH (00:45)
[2018-01-10] MEDS: HYDROcodone/APAP 5-325MG 1 EACH TAB PO PRN ×4 (01:54→18:20)
[2018-01-10 02:46] LABS: Cholesterol 90 mg/dL (<200); HDL Cholesterol 23 mg/dL (40-60); LDL Cholesterol,Calculated 47 mg/dL (0-99); Triglycerides 101 mg/dL (<150)
[2018-01-10] MEDS: LEVOTHYROXINE 100 MCG TAB PO SCH (06:11)
[2018-01-10] MEDS: MIDODRINE 5 MG TAB PO SCH ×3 (06:12→17:22)
[2018-01-10] MEDS: PANTOPRAZOLE 40 MG TABLET PO SCH (06:12)
[2018-01-10] MEDS: FUROSEMIDE 40 MG TAB PO SCH (06:12)
[2018-01-10] MEDS: cefTRIAXone IN SWFI 1,000 MG/10 ML SYRINGE IVP SCH (06:15)
[2018-01-10] MEDS: NITROGLYCERIN OINT 1 INCH/GM PACKET TOPICAL SCH ×4 (06:15→23:10)
[2018-01-10] MEDS: IPRATROPIUM 0.5 MG/2.5 ML NEBU INHALATION SCH ×4 (08:44→20:22)
[2018-01-10] MEDS: SYMBICORT 80-4.5 MCG INHALER INHALATION SCH ×2 (08:44→20:22)
--- NOTE | 2018-01-10 08:52 | P.CRDCN ---
History of Present Illness Consult date: 01/10/18 Requesting physician: Abelardo Kelly Chief complaint: Chest pain and left groin pain History of present illness: This is a pleasant 67-year-old female with past medical history significant for coronary artery disease and prior LAD stenting several years ago , paroxysmal atrial fibrillation, on Xarelto for anticoagulation, COPD with home O2 use, hypertension, hyperlipidemia, mild memory impairment, sleep apnea, prior history of stroke, PAD, who most recently underwent a cardiac catheterization in early December,, which revealed a patent stent in the proximal RCA , mild disease in the ostial left main appeared to be 30%, mild disease involving the left circumflex and patent stent in the mid LAD with mild disease involving the ostial LAD. Patient presents to the hospital on this occasion with symptoms of chest discomfort which started up yesterday afternoon , she does state that the pain reminds her of what she had prior to her original stent placement. Patient also complained of significant pain and discomfort in her left groin area which she states has been hurting her since her procedure in early December. She also has significant lower back discomfort. She doesn't complain of any overt change in her breathing, is normally somewhat short of breath and uses oxygen regularly at home. Asked x-ray on arrival here showed coarse lung markings, no pleural fluid. Likely secondary to pulmonary interstitial fibrosis. No congestive heart failure. EKG shows a normal sinus rhythm with a right bundle branch block pattern and nonspecific ST-T wave changes. CTA of the chest was performed which did not reveal any evidence for pulmonary embolism. Mediastinal and bronchial adenopathy, appearance could relate to sarcoidosis. Blood pressure 140/80 with heart rate in the 70s, 95% on 5 L of oxygen. Afebrile. White blood cell count 11.9, hemoglobin 10.4, platelet count 403. D-dimer 1.8. Sodium 136, potassium 5.1, BUN 18, creatinine 1.1. Troponins have been negative 3. Positive UTI. Past Medical History Past Medical History: Atrial Fibrillation, Asthma, Coronary Artery Disease (CAD) , Cancer, COPD, CVA/TIA, Eye Disorder, GERD/Reflux, Hyperlipidemia, Hypertension , Memory Impairment, Myocardial Infarction ([place]), Osteoarthritis (OA), Respiratory Disorder, Sleep Apnea/CPAP/BIPAP, Thyroid Disorder, Vascular Disorder Additional Past Medical History / Comment(s): febrile, recent UTI, hypotensive. Other hx: Home O2 prn but ATC lately, CVA x 3 with R arm and R leg weakness , vascular dementia, R trigeminal neuralgia, R eye astigmatism, occluded JOSE ALEJANDRO, PVD, past htn but b/ps running low now, IBS, diarrhea/constipation, chronic abdominal pain, chronic back pain, migraines-none recently, one hip higher, RLS , tremors, CHANDU without device (unable to tolerate), UTIs, hypothyroid, nasopharyngeal inflammatory mass, TMJ yrs ago, R kidney cancer and uterine cancer with surgeries. Last Myocardial Infarction Date:: 11/03/14 History of Any Multi-Drug Resistant Organisms: None Reported Date of last positivie culture/infection: None MDRO Source:: None Past Surgical History: Adenoidectomy, Bladder Surgery, Cholecystectomy, Ear Surgery, Heart Catheterization With Stent, Hysterectomy, Orthopedic Surgery, Tonsillectomy Additional Past Surgical History / Comment(s): 11/28/14 PTCA with stents, left CAROTID ENDARTERECTOMY, MULTIPLE BILATERAL STENTS IN LOWER EXTREMITIES, R elbow surgery as a child, R ear surgery for blockage, bilateral ankle arthroscopies, bilateral knee arthroscopies, deviated septal surgery, L great toe pinned, colonoscopies/benign polypectomy, R nephrectomy and partial bladder removal, skin lesion from nose. Past Anesthesia/Blood Transfusion Reactions: Motion Sickness Date of Last Stent Placement:: 10/2014 Past Psychological History: Bipolar Smoking Status: Former smoker Past Alcohol Use History: None Reported Past Drug Use History: None Reported - Past Family History Mother Family Medical History: COPD Additional Family Medical History / Comment(s): Mother is . She from respiratory failure. Father Family Medical History: Coronary Artery Disease (CAD), Myocardial Infarction ([place] ) Additional Family Medical History / Comment(s): Father had gout Medications and Allergies Home Medications Medication Instructions Recorded Confirmed Type PARoxetine HCL 30 mg PO HS 07/02/14 01/09/18 History OXcarbazepine [Trileptal] 150 mg PO HS 11/04/14 01/09/18 History Melatonin 3 mg PO HS 03/05/16 01/09/18 History Atorvastatin Calcium [Lipitor] 20 mg PO DAILY@1700 06/13/17 01/09/18 History Calcium Polycarbophil [Fibercon] 1,250 mg PO DAILY 06/13/17 01/09/18 History Ferrous Sulfate [Iron (65 MG 325 mg PO DAILY 06/13/17 01/09/18 History Elemental)] Furosemide [Lasix] 40 mg PO DAILY@0600 06/13/17 01/09/18 History Levothyroxine Sodium [Synthroid] 100 mcg PO DAILY@0600 06/13/17 01/09/18 History Lurasidone HCl [Latuda] 20 mg PO DAILY 06/13/17 01/09/18 History Magnesium Oxide [Mag-Ox] 400 mg PO DAILY 06/13/17 01/09/18 History Montelukast [Singulair] 10 mg PO HS 06/13/17 01/09/18 History Pantoprazole Sodium [Protonix] 40 mg PO DAILY 06/13/17 01/09/18 History Potassium Chloride [Klor-Con 10] 10 meq PO DAILY 06/13/17 01/09/18 History Tiotropium [place] [Spiriva] 1 cap INHALATION RT-DAILY 06/14/17 01/09/18 History Rivaroxaban [Xarelto] 15 mg PO W/SUPPER #30 tab 06/16/17 01/09/18 Rx Nitroglycerin Sl Tabs [Nitrostat] 0.4 mg SUBLINGUAL Q5M PRN tab 12/01/17 Rx Polyethylene Glycol 3350 [Miralax] 17 gm PO HS powd.pack 12/01/17 01/09/18 Rx Amiodarone [Cordarone] 200 mg PO DAILY tab 12/10/17 01/09/18 Rx Lactose-Reduced Food [Ensure Plus] 240 ml PO BID@0900,1700 12/16/17 01/09/18 History Multivitamins, Thera [Multivitamin 1 tab PO DAILY 12/16/17 01/09/18 History (formulary)] Docusate [Colace] 100 mg PO BID@0800,1700 PRN #0 12/17/17 01/09/18 Rx Metoprolol Tartrate [Lopressor] 12.5 mg PO BID #60 tab 12/27/17 01/09/18 Rx Nystatin 100,000 Unit/gm Powd 1 applic TOPICAL BID #60 applic 12/27/17 01/09/18 Rx [Mycostatin Powder] HYDROcodone/APAP 5-325MG [[place] 1 tab PO Q4HR PRN #60 tab 12/28/17 01/09/18 Rx 5-325] Midodrine [ProAmatine] 5 mg PO TID #90 tablet 12/28/17 01/09/18 Rx Albuterol Nebulized [Ventolin 2.5 mg INHALATION RT-Q8H PRN 01/09/18 01/09/18 History Nebulized] Dimethicone/Zinc Oxide [Inzo Zinc 1 applic TOPICAL BID 01/09/18 01/09/18 History Oxide Barrier Cream] Fluticasone/Vilanterol [Breo 1 puff INHALATION RT-DAILY 01/09/18 01/09/18 History Ellipta 100-25 Mcg Inhaler] Allergies Allergy/AdvReac Type Severity Reaction Status Date / Time albuterol Allergy Rash/Hives Verified 01/08/18 22:31 latex Allergy Rash/Hives Verified 01/09/18 12:46 Penicillins Allergy Unknown Verified 01/09/18 12:46 Childhood Physical Exam Vitals: Vital Signs Temp Pulse Pulse Resp BP BP Pulse Ox 01/10/18 03:54 96.6 F L 79 16 134/60 93 L 01/10/18 00:00 97.8 F 79 16 119/78 94 L 01/09/18 20:00 99.2 F 82 18 117/68 94 L 01/09/18 15:32 98.8 F 89 18 113/72 93 L 01/09/18 14:50 97.8 F 84 20 113/75 92 L 01/09/18 10:17 98.1 F 74 18 139/90 95 Intake and Output 01/09/18 01/10/18 01/10/18 22:59 06:59 14:59 Intake Total 10 Output Total 200 200 Balance -190 -200 Intake: IV 10 0.9 10 Output: Urine 200 200 Other: Voiding Method Bedside Commode # Voids 1 2 # Bowel Movements 0 1 Weight 72.7 kg PHYSICAL EXAMINATION: HEENT: Head is atraumatic, normocephalic. Pupils equal, round. Neck is supple. There is no elevated jugular venous pressure. HEART EXAMINATION: Heart S1, S2 normal. No murmur or gallop heard. CHEST EXAMINATION: Lungs are clear to auscultation and precussion. No chest wall tenderness is noted on palpation or with deep breathing. ABDOMEN: Soft, nontender. Bowel sounds are heard. No organomegaly noted. EXTREMITIES: 2+ peripheral pulses with no evidence of peripheral edema and no calf tenderness noted. Right groin is soft no hematoma, left groin does have a hematoma present with a positive bruit. NEUROLOGIC patient is awake, alert and oriented -3. . Results 01/08/18 22:40 01/08/18 22:40 Cardiac Enzymes 01/09/18 Range/Units 11:34 CK-MB (CK-2) 0.5 (0.0-2.4) ng/mL Troponin I <0.012 (0.000-0.034) ng/mL Lipids 01/08/18 Range/Units 22:40 Triglycerides 101 (<150) mg/dL Cholesterol 90 (<200) mg/dL HDL Cholesterol 23 L (40-60) mg/dL Current Medications Generic Name Dose Route Start Last Admin Trade Name Freq PRN Reason Stop Dose Admin Hydrocodone Bitart/Acetaminophen 1 each 01/09/18 15:32 01/10/18 06:16 [place] 5-325 PO 1 each Q4HR PRN Administration Pain Amiodarone HCl 200 mg 01/09/18 15:45 01/09/18 17:49 Cordarone PO 200 mg DAILY AAKASH Administration Aspirin 325 mg 01/09/18 09:00 01/09/18 10:10 Aspirin PO 325 mg DAILY AAKASH Administration Atorvastatin Calcium 20 mg 01/09/18 17:00 01/09/18 17:50 Lipitor PO 20 mg DAILY@1700 AAKASH Administration Budesonide/Formoterol Fumarate 2 puff 01/10/18 08:00 Symbicort 80-4.5 Mcg Inhaler INHALATION RT-BID AAKASH Calcium Polycarbophil 1,250 mg 01/10/18 09:00 Fibercon PO DAILY AAKASH Ceftriaxone Sodium 1,000 mg 01/10/18 06:00 01/10/18 06:15 Rocephin IVP 1,000 mg Q24H AAKASH Administration Docusate Sodium 100 mg 01/09/18 17:00 Colace PO BID@0800,1700 PRN Constipation Ferrous Sulfate 325 mg 01/09/18 15:45 01/09/18 17:49 Feosol PO 325 mg DAILY AAKASH Administration Furosemide 40 mg 01/10/18 06:00 01/10/18 06:12 Lasix PO 40 mg DAILY@0600 AAKASH Administration Ipratropium [place] 0.5 mg 01/10/18 08:00 Atrovent Nebulized INHALATION RT-QID AAKASH Levothyroxine Sodium 100 mcg 01/10/18 06:00 01/10/18 06:11 Synthroid PO 100 mcg DAILY@0600 AAKASH Administration Lurasidone HCl 20 mg 01/09/18 15:45 01/09/18 17:49 Latuda PO 20 mg DAILY AAKASH Administration Magnesium Oxide 400 mg 01/10/18 09:00 Mag-Ox PO DAILY AAKASH Melatonin 3 mg 01/09/18 21:00 01/09/18 20:38 Melatonin PO 3 mg HS [facility] Administration Metoprolol Tartrate 12.5 mg 01/09/18 21:00 01/09/18 20:38 Lopressor PO 12.5 mg BID [facility] Administration Midodrine 5 mg 01/09/18 17:30 01/10/18 06:12 Proamatine PO 5 mg AC-TID AAKASH Administration Miscellaneous Information 1 each 01/09/18 01:05 Rx Info: Iv Contrast Was Given MISCELLANE 01/11/18 01:05 DAILY PRN Per Protocol Montelukast Sodium 10 mg 01/09/18 21:00 01/09/18 20:38 Singulair PO 10 mg HS AAKASH Administration Multi-Ingredient Ointment 1 applic 01/09/18 21:00 01/09/18 20:40 Zinc Oxide 20% Oint TOPICAL 1 applic BID AAKASH Administration Multivitamins 1 each 01/10/18 12:00 Theragran PO DAILY@1200 [facility] Nitroglycerin 1 inch 01/09/18 06:00 01/10/18 06:15 Nitro-Bid Oint TOPICAL 1 inch Q6HR AAKASH Administration Nitroglycerin 0.4 mg 01/09/18 02:58 01/09/18 18:19 Nitrostat SUBLINGUAL 0.4 mg Q5M PRN Administration Chest Pain Nystatin 1 applic 01/09/18 21:00 01/09/18 20:40 Mycostatin Powder TOPICAL 1 applic BID AAKASH Administration Oxcarbazepine 150 mg 01/09/18 21:00 01/09/18 20:38 Trileptal PO 150 mg HS AAKASH Administration Pantoprazole Sodium 40 mg 01/10/18 07:30 01/10/18 06:12 Protonix PO 40 mg [id number]-[id number] AAKASH Administration Paroxetine HCl 30 mg 01/09/18 21:00 01/09/18 20:39 Paxil PO 30 mg HS AAKASH Administration Polyethylene Glycol 17 gm 01/09/18 21:00 01/09/18 20:39 Miralax PO 17 gm HS AAKASH Administration Potassium Chloride 10 meq 01/10/18 09:00 K-Dur 10 PO DAILY AAKASH Rivaroxaban 15 mg 01/09/18 17:30 01/09/18 17:50 Xarelto PO 15 mg W/SUPPER AAKASH Administration Intake and Output 01/09/18 01/10/18 01/10/18 22:59 06:59 14:59 Intake Total 10 Output Total 200 200 Balance -190 -200 Intake: IV 10 0.9 10 Output: Urine 200 200 Other: Voiding Method Bedside Commode # Voids 1 2 # Bowel Movements 0 1 Weight 72.7 kg 01/08/18 22:40 01/08/18 22:40 EKG Interpretations (text) EKG shows normal sinus rhythm with a right bundle branch block pattern nonspecific ST-T wave changes. Assessment and Plan Plan: Assessment and plan #1 chest pain, atypical for acute coronary syndrome. Troponins are negative 3 , EKG shows normal sinus rhythm with a right bundle branch block pattern no acute changes noted. CT of the chest was negative for pulmonary embolism. #2 known history of coronary artery disease with prior RCA and LAD stenting several years ago, most recent heart cath was performed at the beginning of this month, which revealed a patent stent in the RCA, mild disease involving the ostial left main, mild circumflex disease, patent stent in the mid LAD. #3 PAD with prior iliac stenting #4 hypertension #5 hyperlipidemia #6 COPD with home O2 use #7 sleep apnea #8 left groin hematoma #9 paroxysmal atrial fibrillation, on Xarelto for anticoagulation Plan We will decrease aspirin 81 mg daily, continue Xarelto on the rest of the patient's medications. We will also obtain an ultrasound of the left groin to rule out pseudoaneurysm. Echocardiogram with Doppler study performed in October of this year revealed a normal left ventricular systolic function. Further recommendations to follow. DNP note has been reviewed, I agree with a documented findings and plan of care. Patient was seen and examined.
[2018-01-10] MEDS: AMIODARONE 200 MG TAB PO SCH (09:27)
[2018-01-10] MEDS: CALCIUM POLYCARBOPHIL 625 MG TAB PO SCH (09:28)
[2018-01-10] MEDS: LURASIDONE 40 MG TAB PO SCH (09:28)
[2018-01-10] MEDS: METOPROLOL TARTRATE 12.5 MG TAB PO SCH ×2 (09:28→20:30)
[2018-01-10] MEDS: FERROUS SULFATE 325 MG TAB PO SCH (09:28)
[2018-01-10] MEDS: POTASSIUM CHLORIDE ER 10 MEQ TAB.ER.PRT PO SCH (09:28)
[2018-01-10] MEDS: MAGNESIUM OXIDE 400 MG TAB PO SCH (09:28)
[2018-01-10] MEDS: ZINC OXIDE 20% OINT 28.4 GM TUBE TOPICAL SCH ×2 (09:29→20:30)
[2018-01-10] MEDS: NYSTATIN 100,000 UNIT/GM POWD 15 GM TOPICAL SCH ×2 (09:29→20:30)
--- NOTE | 2018-01-10 09:29 | US ---
EXAMINATION TYPE: US lower ext pseudo artery LT DATE OF EXAM: 01/10/2018 COMPARISON: 01/19/2018 CLINICAL HISTORY: 67 year-old female left groin r/o pseudoaneurysm. Pt had recent heart cath with lef t groin approach/ palpable lump left groin EXAM PERFORMED: Grayscale and color Doppler duplex imaging performed of the groin, post cardiac anthony ter to assess for pseudoaneurysm. SIDE PERFORMED: Left FINDINGS: Previously seen 3.9 x 1.9 x 3.2 cm irregular collection, likely hematoma in the groin. Color and Waveform Doppler performed to assess for the presence of pseudoaneurysm; Is there ultrasound evidence of a pseudoaneurysm: No Is there evidence of AV shunting: No Is there a fluid collection present: Yes= 3.7 x 2.0 x 5.8 cm IMPRESSION: The left groin hematoma shows some interval liquefaction and slight interval enlargement now measurin g 5.8 x 3.7 cm versus 3.9 x 3.2 cm, previously. No evidence for pseudoaneurysm.
[2018-01-10] MEDS: ASPIRIN 81 MG PO SCH (09:31)
--- NOTE | 2018-01-10 10:19 | P.CNPUL ---
<Samantha Xiao E - Last Filed: 01/10/18 13:37> History of Present Illness Consult date: 01/10/18 Requesting physician: Abelardo Kelly Reason for consult: COPD Chief complaint: shortness of breath History of present illness: This is a 67-year-old female who is well-known to assistance. She came into the emergency department with chest pain and shortness of breath. The patient was worked up in the emergency room and had negative troponins and her EKG did show a bundle-branch block. Cardiology is on consult, she did undergo a catheterization in December She does have oxygen at all times approximately 2-3 L of home. She did require 5 L of supplemental oxygen in the emergency room. Patient states she was taking her Symbicort and Breo at home that she takes only once a day. Was not using her nebulizer treatments. Chest x-ray was reviewed and was negative. CTA of the chest was negative for PE, did show extensive interstitial pulmonary density consistent with advanced fibrosis. Continues to have mediastinal and bronchial adenopathy. Possibly could relate to sarcoidosis. There is a right upper lobe infiltrate which we will follow. She was noted to have a UTI on admission and had a T-max of 100.7. Patient denies any painful urination or frequent urination. Upon examination she is resting up in bed on 5 L of supplemental oxygen. Her oxygen saturations are 97 % we will decrease her oxygen as tolerated to keep saturations above 90%. She does have a chronic cough that is nonproductive. She denies any current chest pain at this time. States she does have some tenderness in her left groin area ever since she had her cardiac catheterization in December. Review of Systems 14 point review of systems was completed and negative levels are above in the HPI. Past Medical History Past Medical History: Atrial Fibrillation, Asthma, Coronary Artery Disease (CAD) , Cancer, COPD, CVA/TIA, Eye Disorder, GERD/Reflux, Hyperlipidemia, Hypertension , Memory Impairment, Myocardial Infarction ([place]), Osteoarthritis (OA), Respiratory Disorder, Sleep Apnea/CPAP/BIPAP, Thyroid Disorder, Vascular Disorder Additional Past Medical History / Comment(s): febrile, recent UTI, hypotensive. Other hx: Home O2 prn but ATC lately, CVA x 3 with R arm and R leg weakness , vascular dementia, R trigeminal neuralgia, R eye astigmatism, occluded JOSE ALEJANDRO, PVD, past htn but b/ps running low now, IBS, diarrhea/constipation, chronic abdominal pain, chronic back pain, migraines-none recently, one hip higher, RLS , tremors, CHANDU without device (unable to tolerate), UTIs, hypothyroid, nasopharyngeal inflammatory mass, TMJ yrs ago, R kidney cancer and uterine cancer with surgeries. Last Myocardial Infarction Date:: 11/03/14 History of Any Multi-Drug Resistant Organisms: None Reported Date of last positivie culture/infection: None MDRO Source:: None Past Surgical History: Adenoidectomy, Bladder Surgery, Cholecystectomy, Ear Surgery, Heart Catheterization With Stent, Hysterectomy, Orthopedic Surgery, Tonsillectomy Additional Past Surgical History / Comment(s): 11/28/14 PTCA with stents, left CAROTID ENDARTERECTOMY, MULTIPLE BILATERAL STENTS IN LOWER EXTREMITIES, R elbow surgery as a child, R ear surgery for blockage, bilateral ankle arthroscopies, bilateral knee arthroscopies, deviated septal surgery, L great toe pinned, colonoscopies/benign polypectomy, R nephrectomy and partial bladder removal, skin lesion from nose. Past Anesthesia/Blood Transfusion Reactions: Motion Sickness Date of Last Stent Placement:: 10/2014 Past Psychological History: Bipolar Smoking Status: Former smoker Past Alcohol Use History: None Reported Past Drug Use History: None Reported - Past Family History Mother Family Medical History: COPD Additional Family Medical History / Comment(s): Mother is . She from respiratory failure. Father Family Medical History: Coronary Artery Disease (CAD), Myocardial Infarction ([place] ) Additional Family Medical History / Comment(s): Father had gout Medications and Allergies Home Medications Medication Instructions Recorded Confirmed Type PARoxetine HCL 30 mg PO HS 07/02/14 01/09/18 History OXcarbazepine [Trileptal] 150 mg PO HS 11/04/14 01/09/18 History Melatonin 3 mg PO HS 03/05/16 01/09/18 History Atorvastatin Calcium [Lipitor] 20 mg PO DAILY@1700 06/13/17 01/09/18 History Calcium Polycarbophil [Fibercon] 1,250 mg PO DAILY 06/13/17 01/09/18 History Ferrous Sulfate [Iron (65 MG 325 mg PO DAILY 06/13/17 01/09/18 History Elemental)] Furosemide [Lasix] 40 mg PO DAILY@0600 06/13/17 01/09/18 History Levothyroxine Sodium [Synthroid] 100 mcg PO DAILY@0600 06/13/17 01/09/18 History Lurasidone HCl [Latuda] 20 mg PO DAILY 06/13/17 01/09/18 History Magnesium Oxide [Mag-Ox] 400 mg PO DAILY 06/13/17 01/09/18 History Montelukast [Singulair] 10 mg PO HS 06/13/17 01/09/18 History Pantoprazole Sodium [Protonix] 40 mg PO DAILY 06/13/17 01/09/18 History Potassium Chloride [Klor-Con 10] 10 meq PO DAILY 06/13/17 01/09/18 History Tiotropium [place]a [Spiriva] 1 cap INHALATION RT-DAILY 06/14/17 01/09/18 History Rivaroxaban [Xarelto] 15 mg PO W/SUPPER #30 tab 06/16/17 01/09/18 Rx Nitroglycerin Sl Tabs [Nitrostat] 0.4 mg SUBLINGUAL Q5M PRN tab 12/01/17 Rx Polyethylene Glycol 3350 [Miralax] 17 gm PO HS powd.pack 12/01/17 01/09/18 Rx Amiodarone [Cordarone] 200 mg PO DAILY tab 12/10/17 01/09/18 Rx Lactose-Reduced Food [Ensure Plus] 240 ml PO BID@0900,1700 12/16/17 01/09/18 History Multivitamins, Thera [Multivitamin 1 tab PO DAILY 12/16/17 01/09/18 History (formulary)] Docusate [Colace] 100 mg PO BID@0800,1700 PRN #0 12/17/17 01/09/18 Rx Metoprolol Tartrate [Lopressor] 12.5 mg PO BID #60 tab 12/27/17 01/09/18 Rx Nystatin 100,000 Unit/gm Powd 1 applic TOPICAL BID #60 applic 12/27/17 01/09/18 Rx [Mycostatin Powder] HYDROcodone/APAP 5-325MG [[place] 1 tab PO Q4HR PRN #60 tab 12/28/17 01/09/18 Rx 5-325] Midodrine [ProAmatine] 5 mg PO TID #90 tablet 12/28/17 01/09/18 Rx Albuterol Nebulized [Ventolin 2.5 mg INHALATION RT-Q8H PRN 01/09/18 01/09/18 History Nebulized] Dimethicone/Zinc Oxide [Inzo Zinc 1 applic TOPICAL BID 01/09/18 01/09/18 History Oxide Barrier Cream] Fluticasone/Vilanterol [Breo 1 puff INHALATION RT-DAILY 01/09/18 01/09/18 History Ellipta 100-25 Mcg Inhaler] Allergies Allergy/AdvReac Type Severity Reaction Status Date / Time albuterol Allergy Rash/Hives Verified 01/08/18 22:31 latex Allergy Rash/Hives Verified 01/09/18 12:46 Penicillins Allergy Unknown Verified 01/09/18 12:46 Childhood Physical Exam Vitals: Vital Signs Temp Pulse Pulse Resp BP BP Pulse Ox 01/10/18 08:00 96.8 F L 71 16 141/87 95 01/10/18 03:54 96.6 F L 79 16 134/60 93 L 01/10/18 00:00 97.8 F 79 16 119/78 94 L 01/09/18 20:00 99.2 F 82 18 117/68 94 L 01/09/18 15:32 98.8 F 89 18 113/72 93 L 01/09/18 14:50 97.8 F 84 20 113/75 92 L 01/09/18 10:17 98.1 F 74 18 139/90 95 Intake and Output 01/09/18 01/10/18 01/10/18 22:59 06:59 14:59 Intake Total 10 Output Total 200 200 Balance -190 -200 Intake: IV 10 0.9 10 Output: Urine 200 200 Other: Voiding Method Bedside Commode Bedside Commode # Voids 1 2 # Bowel Movements 0 1 Weight 72.7 kg GENERAL EXAM: Alert, active, comfortable in no apparent distress. HEAD: Normocephalic. EYES: Normal reaction of pupils, equal size. NOSE: Clear with pink turbinates. THROAT: No erythema or exudates. NECK: No masses, no JVD. CHEST: No chest wall deformity. LUNGS: Equal air entry with no crackles, wheeze, rhonchi or dullness. Bases diminished CVS: S1 and S2 normal with no audible mumurs, regular rhythm. ABDOMEN: No hepatosplenomegaly, normal bowel sounds, no guarding or rigidity. EXTREMITIES: No edema noted, pedal pulses palpable. CENTRAL NERVOUS SYSTEM: No focal deficits, tone is normal in all 4 extremities. Results - Laboratory Findings CBC and BMP: 01/10/18 10:59 01/10/18 10:59 PT/INR, D-dimer PT 14.2 sec (9.0-12.0) H 01/08/18 22:40 INR 1.5 (<1.2) H 01/08/18 22:40 D-Dimer 1.84 mg/L FEU (<0.60) H 01/08/18 22:40 Abnormal lab findings: Abnormal Labs 01/08/18 01/08/18 01/08/18 22:40 22:40 22:40 WBC 11.9 H Hgb 10.4 L MCHC 30.4 L RDW 19.8 H Neutrophils # 9.2 H PT INR D-Dimer Sodium 136 L BUN 18 H Creatinine 1.10 H Glucose 53 L AST 38 H Total Creatine Kinase <20 L Total Protein 5.6 L Albumin 3.1 L HDL Cholesterol Urine Appearance Urine Protein Urine Blood Urine Nitrite Ur Leukocyte Esterase Urine RBC Urine WBC Urine Bacteria Urine Mucus 01/08/18 01/08/18 01/08/18 22:40 22:40 22:40 WBC Hgb MCHC RDW Neutrophils # PT 14.2 H INR 1.5 H D-Dimer 1.84 H Sodium BUN Creatinine Glucose AST Total Creatine Kinase Total Protein Albumin HDL Cholesterol 23 L Urine Appearance Urine Protein Urine Blood Urine Nitrite Ur Leukocyte Esterase Urine RBC Urine WBC Urine Bacteria Urine Mucus 01/09/18 01/09/18 01/09/18 00:34 04:52 11:34 WBC Hgb MCHC RDW Neutrophils # PT INR D-Dimer Sodium BUN Creatinine Glucose AST Total Creatine Kinase <20 L <20 L Total Protein Albumin HDL Cholesterol Urine Appearance Cloudy H Urine Protein 1+ H Urine Blood Trace H Urine Nitrite Positive H Ur Leukocyte Esterase Large H Urine RBC 9 H Urine WBC >182 H Urine Bacteria Rare H Urine Mucus Rare H - Diagnostic Findings Chest x-ray: report reviewed, image reviewed CT scan - chest: report reviewed, image reviewed Assessment and Plan Assessment: Assessment Acute on chronic hypoxic respiratory failure requiring supplemental oxygen Acute exacerbation of COPD Left groin hematoma post cardiac catheterization in December Atypical chest pain Mediastinal and bronchial adenopathy CTA Underlying pulmonary fibrosis Present on admission UTI History of CAD with previous stenting Hypertension Hyperlipidemia Paroxysmal atrial fibrillation Plan Medications have been reviewed and will be continued as ordered. Ultrasound of the left groin revealed hematoma. Antibiotics for UTI. Check JOSE level. Obtain an outpatient PET scan to look at RUL with a possible navigational bronchoscopy. Continue with pulmonary hygiene, coughing and deep breathing exercises, and supportive care. Supplemental oxygen to maintain oxygen saturations of 90% or better. Wean oxygen down as tolerated to home dose of 2- 3L. Initiate and encourage incentive spirometer. Continue nebulizer treatments. GI and DVT prophylaxis. Add on PT and OT. We will continue to monitor labs/results and adjust treatment as necessary. Further recommendations pending. I performed an examination of the patient and discussed their management with the nurse practitioner. I have reviewed the nurse practitioner's note and agree with the documented findings and plan of care. <Florinda Hutchinson - Last Filed: 01/10/18 13:45> Physical Exam Osteopathic Statement: *. No significant issues noted on an osteopathic structural exam other than those noted in the History and Physical/Consult. Vitals: Vital Signs Temp Pulse Pulse Resp BP BP Pulse Ox 01/10/18 11:50 16 01/10/18 11:45 97.0 F L 71 16 109/59 93 L 01/10/18 08:00 96.8 F L 71 16 141/87 95 01/10/18 03:54 96.6 F L 79 16 134/60 93 L 01/10/18 00:00 97.8 F 79 16 119/78 94 L 01/09/18 20:00 99.2 F 82 18 117/68 94 L 01/09/18 15:32 98.8 F 89 18 113/72 93 L 01/09/18 14:50 97.8 F 84 20 113/75 92 L Intake and Output 01/09/18 01/10/18 01/10/18 22:59 06:59 14:59 Intake Total 10 Output Total 200 200 Balance -190 -200 Intake: IV 10 0.9 10 Output: Urine 200 200 Other: Voiding Method Bedside Commode Bedside Commode # Voids 1 2 # Bowel Movements 0 1 Weight 72.7 kg Results - Laboratory Findings CBC and BMP: 01/10/18 10:59 01/10/18 10:59 PT/INR, D-dimer PT 14.2 sec (9.0-12.0) H 01/08/18 22:40 INR 1.5 (<1.2) H 01/08/18 22:40 D-Dimer 1.84 mg/L FEU (<0.60) H 01/08/18 22:40 Abnormal lab findings: Abnormal Labs 01/08/18 01/08/18 01/08/18 22:40 22:40 22:40 WBC 11.9 H Hgb 10.4 L MCHC 30.4 L RDW 19.8 H Plt Count Neutrophils # 9.2 H PT INR D-Dimer Sodium 136 L Chloride BUN 18 H Creatinine 1.10 H Glucose 53 L AST 38 H Total Creatine Kinase <20 L Total Protein 5.6 L Albumin 3.1 L HDL Cholesterol Urine Appearance Urine Protein Urine Blood Urine Nitrite Ur Leukocyte Esterase Urine RBC Urine WBC Urine Bacteria Urine Mucus 01/08/18 01/08/18 01/08/18 22:40 22:40 22:40 WBC Hgb MCHC RDW Plt Count Neutrophils # PT 14.2 H INR 1.5 H D-Dimer 1.84 H Sodium Chloride BUN Creatinine Glucose AST Total Creatine Kinase Total Protein Albumin HDL Cholesterol 23 L Urine Appearance Urine Protein Urine Blood Urine Nitrite Ur Leukocyte Esterase Urine RBC Urine WBC Urine Bacteria Urine Mucus 01/09/18 01/09/18 01/09/18 00:34 04:52 11:34 WBC Hgb MCHC RDW Plt Count Neutrophils # PT INR D-Dimer Sodium Chloride BUN Creatinine Glucose AST Total Creatine Kinase <20 L <20 L Total Protein Albumin HDL Cholesterol Urine Appearance Cloudy H Urine Protein 1+ H Urine Blood Trace H Urine Nitrite Positive H Ur Leukocyte Esterase Large H Urine RBC 9 H Urine WBC >182 H Urine Bacteria Rare H Urine Mucus Rare H 01/10/18 01/10/18 10:59 10:59 WBC 17.7 H Hgb 10.5 L MCHC 30.5 L RDW 19.9 H Plt Count 514 H Neutrophils # 14.5 H PT INR D-Dimer Sodium Chloride 96 L BUN 20 H Creatinine Glucose AST Total Creatine Kinase Total Protein 6.1 L Albumin HDL Cholesterol Urine Appearance Urine Protein Urine Blood Urine Nitrite Ur Leukocyte Esterase Urine RBC Urine WBC Urine Bacteria Urine Mucus Assessment and Plan Assessment: Underlying COPD, atypical pulmonary fibrosis possible. Will check JOSE level. Outpatient PET scan and follow up for pulmonary nodule. May need navigational bronch in the future. ~Florinda Hutchinson, DO
--- NOTE | 2018-01-10 11:15 | P.PN ---
Subjective Progress Note Date: 01/10/18 Kathy Mckeon is a 67-year-old female who presented to [facility] emergency room with a chief complaint of chest pain that started at 3 PM on 01/08/2018 patient was also having shortness of breath she was evaluated in the emergency room and was admitted to telemetry floor for further evaluation and treatment. In the emergency room patient had an EKG that revealed normal sinus rhythm with right bundle branch block, 3 sets of troponin were negative. Patient also had elevated d-dimer computed tomography scan angiogram of the chest and was negative for pulmonary embolism. Chest x-ray was suspicious for pulmonary fibrosis without evidence of pneumonia or overt heart failure. Patient has a known history of hypertension, hypothyroidism, hyperlipidemia, atrial fibrillation, and previous history of stroke. Patient also has a known history of coronary artery disease with previous history of stent placement. She also has a known history of peripheral vascular occlusive disease with multiple stent placement in the lower extremities in the past. 01/10/2018 patient reports some improvement in her shortness of breath. She was on 5 L satting at 97%. Initially stable we'll try to titrate down on her oxygen. Patient had reported chest pain. No evidence of any acute coronary syndrome. Patient seen by cardiology. Had recent heart catheterization earlier this month. Patient complaining of left groin pain with evidence of a left hematoma for her from her recent heart catheterization. There is no evidence of pseudoaneurysm. But the hematoma has had slight interval enlargement. Patient denies any nausea vomiting. Denies any bowel movement changes or urinary symptoms. She's been seen by both cardiology and pulmonary service. Objective - Vital Signs Vital signs: Vital Signs Temp 96.8 F L 01/10/18 08:00 Pulse 71 01/10/18 08:00 Resp 16 01/10/18 08:00 BP 141/87 01/10/18 08:00 Pulse Ox 95 01/10/18 08:00 Intake & Output 01/09/18 01/10/18 01/10/18 18:59 06:59 18:59 Intake Total 10 Output Total 400 Balance -390 Weight 72.7 kg Intake: IV 10 0.9 10 Output: Urine 400 Other: Voiding Method Bedside Commode Bedside Commode Bedside Commode # Voids 2 # Bowel Movements 1 - Exam Head normocephalic Neck supple Lungs slightly diminished bilaterally Heart regular rate and rhythm S1-S2, no rub or gallop Abdomen is soft nontender nondistended positive bowel sounds no hepatosplenomegaly. Left groin hematoma. Area is firm and hard. No discoloration at that site. However patient does have some yellowish greenish bruising near the hip area. Extremities no edema Neuro alert and orientated to 3 - Labs CBC & Chem 7: 01/08/18 22:40 01/08/18 22:40 Labs: Abnormal Lab Results - Last 24 Hours (Table) 01/08/18 01/09/18 Range/Units 22:40 11:34 Total Creatine Kinase <20 L (30-135) U/L HDL Cholesterol 23 L (40-60) mg/dL Microbiology - Last 24 Hours (Table) 01/08/18 22:40 Blood Culture - Preliminary Blood No Growth after 24 hours Assessment and Plan Assessment: #1 acute on chronic hypoxic respiratory failure: Likely secondary to a COPD exacerbation. Patient did receive a dose of IV steroids in the ER. Continue nebulizer treatments. Tried to wean down the patient's oxygen. Maintain oxygen saturation 92% or better #2 chest pain with no evidence of acute coronary syndrome. Troponins negative 3 sets. EKG no significant changes. Patient had recent heart catheterization earlier in December revealed a patent stent in the RCA, mild disease involving the ostial left main, mild circumflex disease and patent stent in the mid LAD. Chest pain could be related to musculoskeletal pain. She did have tenderness to palpation of the chest wall #3 history of paroxysmal atrial fibrillation anticoagulated with Xarelto #4 underlying history of hypertension #5 underlying history of hyperlipidemia #6 advanced pulmonary fibrosis versus sarcoidosis: Pulmonary service following #7 previous history of coronary artery disease with history of stent placement #8 previous history of peripheral arterial disease with history of stent placement in the lower extremities #9 left groin hematoma secondary to recent heart catheterization: Ultrasound shows no evidence of pseudoaneurysm. Does reveal a slight enlargement and hematoma from her last hospitalization. Continue to monitor. Hemoglobin 10. #10 UTI continue with Rocephin GI prophylaxis Protonix and DVT prophylaxis Xarelto I performed an examination of the patient and discussed their management with the physician Boxing Instructor. I have reviewed the Physician Boxing Instructor's notes and agree with the documented findings and plan of care
[2018-01-10 11:34] LABS: Anisocytosis Slight; Basophils % (A) 0 %; Eosinophils % (A) 0 %; HCT 34.6 % (34.0-46.0); HGB 10.5 gm/dL (11.4-16.0); Hypochromasia Marked; Lymphocytes % (A) 11 %; MCH 26.4 pg (25.0-35.0); MCHC 30.5 g/dL (31.0-37.0); MCV 86.8 fL (80.0-100.0); Mean Platelet Volume 6.8; Monocytes # (A) 0.9 k/uL (0-1.0); Monocytes % (A) 5 %; Neutrophils # (A) 14.5 k/uL (1.3-7.7); Neutrophils % (A) 82 %; Platelet Count 514 k/uL (150-450); RBC 3.98 m/uL (3.80-5.40); RDW 19.9 % (11.5-15.5); WBC 17.7 k/uL (3.8-10.6)
[2018-01-10 11:38] LABS: Albumin 3.7 g/dL (3.5-5.0); Calcium 9.6 mg/dL (8.4-10.2); Potassium 4.4 mmol/L (3.5-5.1); Total Bilirubin 0.3 mg/dL (0.2-1.3); Total Protein 6.1 g/dL (6.3-8.2)
[2018-01-10] MEDS: MULTIVITAMINS, THERA 1 EACH TAB PO SCH (12:00)
[2018-01-10] MEDS: RIVAROXABAN 15 MG TAB PO SCH (17:22)
[2018-01-10] MEDS: ATORVASTATIN 20 MG TAB PO SCH (17:23)
[2018-01-10] MEDS: MELATONIN 3 MG TABLET PO SCH (20:29)
[2018-01-10] MEDS: POLYETHYLENE GLYCOL 3350 17 GM POWD.PACK PO SCH (20:30)
[2018-01-10] MEDS: MONTELUKAST 10 MG TAB PO SCH (20:30)
[2018-01-10] MEDS: PARoxetine 10 MG TAB PO SCH (20:30)
[2018-01-10] MEDS: OXcarbazepine 150 MG TAB PO SCH (20:30)
[2018-01-11] MEDS: HYDROcodone/APAP 5-325MG 1 EACH TAB PO PRN ×4 (02:12→22:03)
[2018-01-11] MEDS: PANTOPRAZOLE 40 MG TABLET PO SCH (06:33)
[2018-01-11] MEDS: MIDODRINE 5 MG TAB PO SCH ×3 (06:34→17:14)
[2018-01-11] MEDS: LEVOTHYROXINE 100 MCG TAB PO SCH (06:34)
[2018-01-11] MEDS: NITROGLYCERIN OINT 1 INCH/GM PACKET TOPICAL SCH ×3 (06:34→17:13)
[2018-01-11] MEDS: FUROSEMIDE 40 MG TAB PO SCH (06:34)
[2018-01-11] MEDS: cefTRIAXone IN SWFI 1,000 MG/10 ML SYRINGE IVP SCH (06:36)
[2018-01-11 06:43] LABS: Anisocytosis Slight; Basophils % (A) 0 %; Eosinophils # (A) 0.1 k/uL (0-0.7); Eosinophils % (A) 1 %; HCT 37.2 % (34.0-46.0); Hypochromasia Marked; Lymphocytes # (A) 2.8 k/uL (1.0-4.8); Lymphocytes % (A) 18 %; MCH 25.8 pg (25.0-35.0); MCHC 29.5 g/dL (31.0-37.0); MCV 87.4 fL (80.0-100.0); Mean Platelet Volume 6.7; Monocytes # (A) 1.1 k/uL (0-1.0); Monocytes % (A) 7 %; Neutrophils # (A) 11.4 k/uL (1.3-7.7); Neutrophils % (A) 73 %; Platelet Count 470 k/uL (150-450); RBC 4.25 m/uL (3.80-5.40); WBC 15.6 k/uL (3.8-10.6)
[2018-01-11 07:07] LABS: Albumin 3.5 g/dL (3.5-5.0); Calcium 9.7 mg/dL (8.4-10.2); Potassium 4.8 mmol/L (3.5-5.1); Total Bilirubin 0.4 mg/dL (0.2-1.3)
[2018-01-11] MEDS: SYMBICORT 80-4.5 MCG INHALER INHALATION SCH ×2 (07:57→21:12)
[2018-01-11] MEDS: IPRATROPIUM 0.5 MG/2.5 ML NEBU INHALATION SCH ×4 (07:57→21:12)
[2018-01-11] MEDS: CALCIUM POLYCARBOPHIL 625 MG TAB PO SCH (08:37)
[2018-01-11] MEDS: ASPIRIN 81 MG PO SCH (08:37)
[2018-01-11] MEDS: METOPROLOL TARTRATE 12.5 MG TAB PO SCH ×2 (08:38→22:00)
[2018-01-11] MEDS: LURASIDONE 40 MG TAB PO SCH (08:38)
[2018-01-11] MEDS: FERROUS SULFATE 325 MG TAB PO SCH (08:38)
[2018-01-11] MEDS: MAGNESIUM OXIDE 400 MG TAB PO SCH (08:39)
[2018-01-11] MEDS: AMIODARONE 200 MG TAB PO SCH (08:39)
[2018-01-11] MEDS: ZINC OXIDE 20% OINT 28.4 GM TUBE TOPICAL SCH ×2 (08:41→23:59)
[2018-01-11] MEDS: NYSTATIN 100,000 UNIT/GM POWD 15 GM TOPICAL SCH ×2 (08:41→23:59)
--- NOTE | 2018-01-11 09:45 | P.PN ---
Subjective Progress Note Date: 01/11/18 HPI: This is a 67-year-old female who is well-known to assistance. She came into the emergency department with chest pain and shortness of breath. The patient was worked up in the emergency room and had negative troponins and her EKG did show a bundle-branch block. Cardiology is on consult, she did undergo a catheterization in December She does have oxygen at all times approximately 2-3 L of home. She did require 5 L of supplemental oxygen in the emergency room. Patient states she was taking her Symbicort and Breo at home that she takes only once a day. Was not using her nebulizer treatments. Chest x-ray was reviewed and was negative. CTA of the chest was negative for PE, did show extensive interstitial pulmonary density consistent with advanced fibrosis. Continues to have mediastinal and bronchial adenopathy. Possibly could relate to sarcoidosis. There is a right upper lobe infiltrate which we will follow. She was noted to have a UTI on admission and had a T-max of 100.7. Patient denies any painful urination or frequent urination. Upon examination she is resting up in bed on 5 L of supplemental oxygen. Her oxygen saturations are 97 % we will decrease her oxygen as tolerated to keep saturations above 90%. She does have a chronic cough that is nonproductive. She denies any current chest pain at this time. States she does have some tenderness in her left groin area ever since she had her cardiac catheterization in December. Interval history 01/11/18- patient is being seen examined and evaluated today on rounds. She is resting up in bed on 3 L of supplemental oxygen which is what her home doses. She states her breathing is much better today. She is using her incentive spirometer and pulling volumes of approximately 2500. She has an occasional cough is chronic, denies any congestion at this time. She has been participating in therapy. Afebrile no further complaints. Objective - Vital Signs Vital signs: Vital Signs Temp 97.4 F L 01/11/18 08:30 Pulse 64 01/11/18 08:30 Resp 16 01/11/18 08:30 BP 117/65 01/11/18 08:30 Pulse Ox 91 L 01/11/18 08:30 Intake & Output 01/10/18 01/11/18 01/11/18 18:59 06:59 18:59 Intake Total 20 Balance 20 Weight 71.5 kg Intake: IV 20 0.9 20 Other: Voiding Method Bedside Commode # Voids 2 1 # Bowel Movements 0 - Exam GENERAL EXAM: Alert, active, comfortable in no apparent distress. HEAD: Normocephalic. EYES: Normal reaction of pupils, equal size. NOSE: Clear with pink turbinates. THROAT: No erythema or exudates. NECK: No masses, no JVD. CHEST: No chest wall deformity. LUNGS: Equal air entry with no crackles, wheeze, rhonchi or dullness. Bases diminished CVS: S1 and S2 normal with no audible mumurs, regular rhythm. ABDOMEN: No hepatosplenomegaly, normal bowel sounds, no guarding or rigidity. EXTREMITIES: No edema noted, pedal pulses palpable. CENTRAL NERVOUS SYSTEM: No focal deficits, tone is normal in all 4 extremities. - Labs CBC & Chem 7: 01/11/18 06:00 01/11/18 06:00 Labs: Abnormal Lab Results - Last 24 Hours (Table) 01/10/18 01/10/18 01/11/18 Range/Units 10:59 10:59 06:00 WBC 17.7 H 15.6 H (3.8-10.6) k/uL Hgb 10.5 L 11.0 L (11.4-16.0) gm/dL MCHC 30.5 L 29.5 L (31.0-37.0) g/dL RDW 19.9 H 20.0 H (11.5-15.5) % Plt Count 514 H 470 H (150-450) k/uL Neutrophils # 14.5 H 11.4 H (1.3-7.7) k/uL Monocytes # 1.1 H (0-1.0) k/uL Chloride 96 L (98-107) mmol/L BUN 20 H (7-17) mg/dL Creatinine (0.52-1.04) mg/dL Total Protein 6.1 L (6.3-8.2) g/dL 01/11/18 Range/Units 06:00 WBC (3.8-10.6) k/uL Hgb (11.4-16.0) gm/dL MCHC (31.0-37.0) g/dL RDW (11.5-15.5) % Plt Count (150-450) k/uL Neutrophils # (1.3-7.7) k/uL Monocytes # (0-1.0) k/uL Chloride (98-107) mmol/L BUN 20 H (7-17) mg/dL Creatinine 1.10 H (0.52-1.04) mg/dL Total Protein 6.0 L (6.3-8.2) g/dL Microbiology - Last 24 Hours (Table) 01/08/18 22:40 Blood Culture - Preliminary Blood No Growth after 48 hours Assessment and Plan Assessment: Assessment Acute on chronic hypoxic respiratory failure requiring supplemental oxygen Acute exacerbation of COPD Left groin hematoma post cardiac catheterization in December Atypical chest pain Mediastinal and bronchial adenopathy CTA Underlying pulmonary fibrosis Present on admission UTI History of CAD with previous stenting Hypertension Hyperlipidemia Paroxysmal atrial fibrillation Plan Medications have been reviewed and will be continued as ordered. Ultrasound of the left groin revealed hematoma. Antibiotics for UTI. Obtain an outpatient PET scan to look at RUL with a possible navigational bronchoscopy. Continue with pulmonary hygiene, coughing and deep breathing exercises, and supportive care. Supplemental oxygen to maintain oxygen saturations of 90% or better. Wean oxygen down as tolerated to home dose of 2-3L. Initiate and encourage incentive spirometer. Continue nebulizer treatments. GI and DVT prophylaxis. Continue with PT and OT. We will continue to monitor labs/results and adjust treatment as necessary. Further recommendations pending. I performed an examination of the patient and discussed their management with the nurse practitioner. I have reviewed the nurse practitioner's note and agree with the documented findings and plan of care.
[2018-01-11] MEDS ORDERED: guaiFENesin 600 MG TABLET.ER PO SCH (10:00)
[2018-01-11] MEDS: POTASSIUM CHLORIDE ER 10 MEQ TAB.ER.PRT PO SCH (13:22)
[2018-01-11] MEDS: MULTIVITAMINS, THERA 1 EACH TAB PO SCH (13:22)
--- NOTE | 2018-01-11 14:34 | P.PN ---
Subjective Progress Note Date: 01/11/18 Kathy Mckeon is a 67-year-old female who presented to [facility] emergency room with a chief complaint of chest pain that started at 3 PM on 01/08/2018 patient was also having shortness of breath she was evaluated in the emergency room and was admitted to telemetry floor for further evaluation and treatment. In the emergency room patient had an EKG that revealed normal sinus rhythm with right bundle branch block, 3 sets of troponin were negative. Patient also had elevated d-dimer computed tomography scan angiogram of the chest and was negative for pulmonary embolism. Chest x-ray was suspicious for pulmonary fibrosis without evidence of pneumonia or overt heart failure. Patient has a known history of hypertension, hypothyroidism, hyperlipidemia, atrial fibrillation, and previous history of stroke. Patient also has a known history of coronary artery disease with previous history of stent placement. She also has a known history of peripheral vascular occlusive disease with multiple stent placement in the lower extremities in the past. 01/10/2018 patient reports some improvement in her shortness of breath. She was on 5 L satting at 97%. Initially stable we'll try to titrate down on her oxygen. Patient had reported chest pain. No evidence of any acute coronary syndrome. Patient seen by cardiology. Had recent heart catheterization earlier this month. Patient complaining of left groin pain with evidence of a left hematoma for her from her recent heart catheterization. There is no evidence of pseudoaneurysm. But the hematoma has had slight interval enlargement. Patient denies any nausea vomiting. Denies any bowel movement changes or urinary symptoms. She's been seen by both cardiology and pulmonary service. 01/11/2018 patient is showing improvement. She is back to her home dose of 3 L at 92%. Her chest discomfort has improved. She has been up and walking with physical therapy. Pulmonary service and cardiology had cleared her for discharge. The plan is to proceed with discharged to [facility]. According to case finisher the Medicaid insurance will cover further stay at the shelter with copay. Patient is reporting improvement in her shortness of breath. Denies any nausea or vomiting. Reports having bowel movements. Denies any difficulty urinating. Objective - Vital Signs Vital signs: Vital Signs Temp 97.7 F 01/11/18 11:36 Pulse 62 01/11/18 11:36 Resp 16 01/11/18 11:36 BP 110/56 01/11/18 11:36 Pulse Ox 90 L 01/11/18 11:36 Intake & Output 01/10/18 01/11/18 01/11/18 18:59 06:59 18:59 Intake Total 20 Output Total 300 Balance 20 -300 Weight 71.5 kg Intake: IV 20 0.9 20 Output: Urine 300 Other: Voiding Method Bedside Commode Bedside Commode # Voids 2 1 # Bowel Movements 0 - Exam Head normocephalic Neck supple Lungs slightly diminished bilaterally Heart regular rate and rhythm S1-S2, no rub or gallop Abdomen is soft nontender nondistended positive bowel sounds no hepatosplenomegaly. Left groin hematoma. Area is firm and hard. No discoloration at that site. However patient does have some yellowish greenish bruising near the hip area. Extremities no edema Neuro alert and orientated to 3 - Labs CBC & Chem 7: 01/11/18 06:00 01/11/18 06:00 Labs: Abnormal Lab Results - Last 24 Hours (Table) 01/11/18 01/11/18 Range/Units 06:00 06:00 WBC 15.6 H (3.8-10.6) k/uL Hgb 11.0 L (11.4-16.0) gm/dL MCHC 29.5 L (31.0-37.0) g/dL RDW 20.0 H (11.5-15.5) % Plt Count 470 H (150-450) k/uL Neutrophils # 11.4 H (1.3-7.7) k/uL Monocytes # 1.1 H (0-1.0) k/uL BUN 20 H (7-17) mg/dL Creatinine 1.10 H (0.52-1.04) mg/dL Total Protein 6.0 L (6.3-8.2) g/dL Microbiology - Last 24 Hours (Table) 01/08/18 22:40 Blood Culture - Preliminary Blood No Growth after 48 hours Assessment and Plan Assessment: #1 acute on chronic hypoxic respiratory failure: Likely secondary to a COPD exacerbation. Patient did receive a dose of IV steroids in the ER. Continue nebulizer treatments. Patient is down to 3 L of oxygen standing and 92% and tolerating this well. Pulmonary has cleared her for discharge. #2 chest pain with no evidence of acute coronary syndrome. Troponins negative 3 sets. EKG no significant changes. Patient had recent heart catheterization earlier in December revealed a patent stent in the RCA, mild disease involving the ostial left main, mild circumflex disease and patent stent in the mid LAD. Chest pain could be related to musculoskeletal pain. She did have tenderness to palpation of the chest wall #3 history of paroxysmal atrial fibrillation anticoagulated with Xarelto #4 underlying history of hypertension #5 underlying history of hyperlipidemia #6 advanced pulmonary fibrosis versus sarcoidosis: Pulmonary service following #7 previous history of coronary artery disease with history of stent placement #8 previous history of peripheral arterial disease with history of stent placement in the lower extremities #9 left groin hematoma secondary to recent heart catheterization: Ultrasound shows no evidence of pseudoaneurysm. Does reveal a slight enlargement and hematoma from her last hospitalization. Continue to monitor. Hemoglobin 10. #10 UTI continue with Rocephin GI prophylaxis Protonix and DVT prophylaxis Xarelto Case was discussed with patient's daughter. Patient's daughter is hesitant for discharge. She wants her mother monitored for another 24 hours. Patient's daughter is concerned about patient's ongoing chronic health issues that she is still requiring oxygen. Apparently several months ago patient had not been requiring oxygen. Patient will be monitored. And anticipate discharge to [facility] possibly tomorrow I performed an examination of the patient and discussed their management with the physician Senior Communications Specialist. I have reviewed the Physician Senior Communications Specialist's notes and agree with the documented findings and plan of care
[2018-01-11] MEDS: ATORVASTATIN 20 MG TAB PO SCH (17:14)
[2018-01-11] MEDS: RIVAROXABAN 15 MG TAB PO SCH (17:14)
[2018-01-11] MEDS: MONTELUKAST 10 MG TAB PO SCH (21:59)
[2018-01-11] MEDS: MELATONIN 3 MG TABLET PO SCH (21:59)
[2018-01-11] MEDS: OXcarbazepine 150 MG TAB PO SCH (22:00)
[2018-01-11] MEDS: POLYETHYLENE GLYCOL 3350 17 GM POWD.PACK PO SCH (22:01)
[2018-01-11] MEDS: PARoxetine 10 MG TAB PO SCH (22:01)
[2018-01-12] MEDS: HYDROcodone/APAP 5-325MG 1 EACH TAB PO PRN ×2 (04:58→21:01)
[2018-01-12 06:27] LABS: Albumin 3.2 g/dL (3.5-5.0); Potassium 4.1 mmol/L (3.5-5.1); Total Bilirubin 0.4 mg/dL (0.2-1.3); Total Protein 5.6 g/dL (6.3-8.2)
[2018-01-12] MEDS: NITROGLYCERIN OINT 1 INCH/GM PACKET TOPICAL SCH ×5 (06:42→23:48)
[2018-01-12] MEDS: FUROSEMIDE 40 MG TAB PO SCH (06:42)
[2018-01-12] MEDS: PANTOPRAZOLE 40 MG TABLET PO SCH (06:42)
[2018-01-12] MEDS: LEVOTHYROXINE 100 MCG TAB PO SCH (06:42)
[2018-01-12] MEDS: MIDODRINE 5 MG TAB PO SCH ×3 (06:43→17:38)
[2018-01-12 06:45] LABS: Anisocytosis Slight; Basophils # (A) 0.1 k/uL (0-0.2); Basophils % (A) 0 %; Eosinophils # (A) 0.2 k/uL (0-0.7); Eosinophils % (A) 2 %; HCT 36.9 % (34.0-46.0); Hypochromasia Marked; Lymphocytes # (A) 2.2 k/uL (1.0-4.8); Lymphocytes % (A) 21 %; MCH 26.3 pg (25.0-35.0); MCHC 29.8 g/dL (31.0-37.0); MCV 88.3 fL (80.0-100.0); Mean Platelet Volume 6.7; Monocytes # (A) 0.7 k/uL (0-1.0); Monocytes % (A) 7 %; Neutrophils % (A) 68 %; Platelet Count 444 k/uL (150-450); RBC 4.17 m/uL (3.80-5.40); RDW 19.7 % (11.5-15.5); WBC 10.3 k/uL (3.8-10.6)
[2018-01-12] MEDS: cefTRIAXone IN SWFI 1,000 MG/10 ML SYRINGE IVP SCH (06:46)
[2018-01-12] MEDS: SYMBICORT 80-4.5 MCG INHALER INHALATION SCH ×2 (07:27→19:23)
[2018-01-12] MEDS: IPRATROPIUM 0.5 MG/2.5 ML NEBU INHALATION SCH ×4 (07:27→19:23)
[2018-01-12] MEDS: AMIODARONE 200 MG TAB PO SCH (08:42)
[2018-01-12] MEDS: ASPIRIN 81 MG PO SCH (08:42)
[2018-01-12] MEDS: CALCIUM POLYCARBOPHIL 625 MG TAB PO SCH (08:42)
[2018-01-12] MEDS: FERROUS SULFATE 325 MG TAB PO SCH (08:43)
[2018-01-12] MEDS: MAGNESIUM OXIDE 400 MG TAB PO SCH (08:43)
[2018-01-12] MEDS: LURASIDONE 40 MG TAB PO SCH (08:43)
[2018-01-12] MEDS: METOPROLOL TARTRATE 12.5 MG TAB PO SCH ×2 (08:44→20:58)
[2018-01-12] MEDS: POTASSIUM CHLORIDE ER 10 MEQ TAB.ER.PRT PO SCH (08:44)
[2018-01-12] MEDS: NYSTATIN 100,000 UNIT/GM POWD 15 GM TOPICAL SCH ×2 (08:48→21:00)
[2018-01-12] MEDS: ZINC OXIDE 20% OINT 28.4 GM TUBE TOPICAL SCH ×2 (08:48→21:14)
--- NOTE | 2018-01-12 10:13 | P.PN ---
Subjective Progress Note Date: 01/12/18 Principal diagnosis: Shortness of breath HPI: This is a 67-year-old female who is well-known to assistance. She came into the emergency department with chest pain and shortness of breath. The patient was worked up in the emergency room and had negative troponins and her EKG did show a bundle-branch block. Cardiology is on consult, she did undergo a catheterization in December She does have oxygen at all times approximately 2-3 L of home. She did require 5 L of supplemental oxygen in the emergency room. Patient states she was taking her Symbicort and Breo at home that she takes only once a day. Was not using her nebulizer treatments. Chest x-ray was reviewed and was negative. CTA of the chest was negative for PE, did show extensive interstitial pulmonary density consistent with advanced fibrosis. Continues to have mediastinal and bronchial adenopathy. Possibly could relate to sarcoidosis. There is a right upper lobe infiltrate which we will follow. She was noted to have a UTI on admission and had a T-max of 100.7. Patient denies any painful urination or frequent urination. Upon examination she is resting up in bed on 5 L of supplemental oxygen. Her oxygen saturations are 97 % we will decrease her oxygen as tolerated to keep saturations above 90%. She does have a chronic cough that is nonproductive. She denies any current chest pain at this time. States she does have some tenderness in her left groin area ever since she had her cardiac catheterization in December. Interval history 01/11/18- patient is being seen examined and evaluated today on rounds. She is resting up in bed on 3 L of supplemental oxygen which is what her home doses. She states her breathing is much better today. She is using her incentive spirometer and pulling volumes of approximately 2500. She has an occasional cough is chronic, denies any congestion at this time. She has been participating in therapy. Afebrile no further complaints. 01/12/2018: Patient seen and examined. Patient is on 3 L nasal cannula which is her home dose. The patient states her breathing is at her baseline. She is complaining of continued left sided abdominal pain. She denies diarrhea, nausea , vomiting. She denies fevers and chills. She is using her incentive spirometer. Plan is for discharge to [facility] tomorrow. Objective - Vital Signs Vital signs: Vital Signs Temp 97.4 F L 01/12/18 04:00 Pulse 60 01/12/18 04:00 Resp 18 01/12/18 04:00 BP 118/77 01/12/18 04:00 Pulse Ox 91 L 01/12/18 04:00 Intake & Output 01/11/18 01/12/18 01/12/18 18:59 06:59 18:59 Intake Total 610 Output Total 1600 4800 Balance -990 -4800 Weight 72.2 kg Intake: Oral 610 Output: Urine 1000 1200 Stool 600 3600 Other: Voiding Method Bedside Commode Bedside Commode # Voids 1 1 - Exam GENERAL EXAM: Alert, active, comfortable in no apparent distress. HEAD: Normocephalic. EYES: Normal reaction of pupils, equal size. NOSE: Clear with pink turbinates. THROAT: No erythema or exudates. NECK: No masses, no JVD. CHEST: No chest wall deformity. LUNGS: Equal air entry with no crackles, wheeze, rhonchi or dullness. Bases diminished CVS: S1 and S2 normal with no audible mumurs, regular rhythm. ABDOMEN: No hepatosplenomegaly, normal bowel sounds, no guarding or rigidity. EXTREMITIES: No edema noted, pedal pulses palpable. CENTRAL NERVOUS SYSTEM: No focal deficits, tone is normal in all 4 extremities. - Labs CBC & Chem 7: 01/12/18 05:54 01/12/18 05:54 Labs: Abnormal Lab Results - Last 24 Hours (Table) 01/12/18 01/12/18 Range/Units 05:54 05:54 Hgb 11.0 L (11.4-16.0) gm/dL MCHC 29.8 L (31.0-37.0) g/dL RDW 19.7 H (11.5-15.5) % BUN 19 H (7-17) mg/dL Total Protein 5.6 L (6.3-8.2) g/dL Albumin 3.2 L (3.5-5.0) g/dL Microbiology - Last 24 Hours (Table) 01/08/18 22:40 Blood Culture - Preliminary Blood No Growth after 72 hours 01/11/18 11:20 Urine Culture - Preliminary Urine,Voided Assessment and Plan Assessment: Assessment Acute on chronic hypoxic respiratory failure requiring supplemental oxygen, now at baseline Acute exacerbation of COPD, resolved Left groin hematoma post cardiac catheterization in May Atypical chest pain Mediastinal and bronchial adenopathy CTA Underlying pulmonary fibrosis Present on admission UTI History of CAD with previous stenting Hypertension Hyperlipidemia Paroxysmal atrial fibrillation Plan Medications have been reviewed and will be continued as ordered: Symbicort, Atrovent, Sngulair. Ultrasound of the left groin revealed hematoma. Antibiotics for UTI. Obtain an outpatient PET scan to look at RUL nodule with a possible navigational bronchoscopy. Continue with pulmonary hygiene, coughing and deep breathing exercises, and supportive care. Supplemental oxygen to maintain oxygen saturations of 90% or better. Wean oxygen down as tolerated to home dose of 2-3L. Initiate and encourage incentive spirometer. Continue nebulizer treatments. GI and DVT prophylaxis. Continue with PT and OT. We will continue to monitor labs/results and adjust treatment as necessary. Respiratory status is stable. Ok to DC from pulmonary standpoint.
[2018-01-12] MEDS: MULTIVITAMINS, THERA 1 EACH TAB PO SCH (11:57)
--- NOTE | 2018-01-12 16:25 | P.PN ---
Subjective Progress Note Date: 01/12/18 Kathy Mckeon is a 67-year-old female who presented to [facility] emergency room with a chief complaint of chest pain that started at 3 PM on 01/08/2018 patient was also having shortness of breath she was evaluated in the emergency room and was admitted to telemetry floor for further evaluation and treatment. In the emergency room patient had an EKG that revealed normal sinus rhythm with right bundle branch block, 3 sets of troponin were negative. Patient also had elevated d-dimer computed tomography scan angiogram of the chest and was negative for pulmonary embolism. Chest x-ray was suspicious for pulmonary fibrosis without evidence of pneumonia or overt heart failure. Patient has a known history of hypertension, hypothyroidism, hyperlipidemia, atrial fibrillation, and previous history of stroke. Patient also has a known history of coronary artery disease with previous history of stent placement. She also has a known history of peripheral vascular occlusive disease with multiple stent placement in the lower extremities in the past. 01/10/2018 patient reports some improvement in her shortness of breath. She was on 5 L satting at 97%. Initially stable we'll try to titrate down on her oxygen. Patient had reported chest pain. No evidence of any acute coronary syndrome. Patient seen by cardiology. Had recent heart catheterization earlier this month. Patient complaining of left groin pain with evidence of a left hematoma for her from her recent heart catheterization. There is no evidence of pseudoaneurysm. But the hematoma has had slight interval enlargement. Patient denies any nausea vomiting. Denies any bowel movement changes or urinary symptoms. She's been seen by both cardiology and pulmonary service. 01/11/2018 patient is showing improvement. She is back to her home dose of 3 L at 92%. Her chest discomfort has improved. She has been up and walking with physical therapy. Pulmonary service and cardiology had cleared her for discharge. The plan is to proceed with discharged to [facility]. According to watch caser the Medicaid insurance will cover further stay at the residential with copay. Patient is reporting improvement in her shortness of breath. Denies any nausea or vomiting. Reports having bowel movements. Denies any difficulty urinating. On 01/12/2018 patient is doing better she is alert and oriented 3 in no apparent distress she was evaluated by cardiology and pulmonary and was cleared for discharge. However, patient's daughter is feeling that patient is not ready yet for discharge and that she had multiple admissions in the last 2 month , at this time I have asked cardiology and pulmonary to reevaluate patient assess if there is any further intervention needed at this time. We'll delay discharge plan until patient is reevaluated by specialist for any further treatment plans. Clinically patient is doing better she is alert and oriented she denies any fever or chills no chest pain no shortness of cough no nausea or vomiting no abdominal pain no diarrhea no frequency of his urination no burning no urgency no hematuria. Objective - Vital Signs Vital signs: Vital Signs Temp 96.9 F L 01/12/18 12:00 Pulse 63 01/12/18 12:00 Resp 18 01/12/18 12:00 BP 97/58 01/12/18 12:00 Pulse Ox 95 01/12/18 12:00 Intake & Output 01/11/18 01/12/18 01/12/18 18:59 06:59 18:59 Intake Total 610 470 Output Total 1600 4800 600 Balance -990 -4800 -130 Weight 72.2 kg Intake: Oral 610 470 Output: Urine 1000 1200 600 Stool 600 3600 Other: Voiding Method Bedside Commode Bedside Commode Bedside Commode # Voids 1 1 - Exam Head normocephalic and atraumatic Neck supple no JVD Lungs slightly diminished bilaterally no crackles no wheezing Heart regular rate and rhythm S1-S2, no rub or gallop Abdomen is soft nontender nondistended positive bowel sounds no hepatosplenomegaly. Left groin hematoma. Area is firm and hard. No discoloration at that site. However patient does have some yellowish greenish bruising near the hip area. Extremities no edema Neuro alert and orientated to 3 - Labs CBC & Chem 7: 01/12/18 05:54 01/12/18 05:54 Labs: Abnormal Lab Results - Last 24 Hours (Table) 01/12/18 01/12/18 Range/Units 05:54 05:54 Hgb 11.0 L (11.4-16.0) gm/dL MCHC 29.8 L (31.0-37.0) g/dL RDW 19.7 H (11.5-15.5) % BUN 19 H (7-17) mg/dL Total Protein 5.6 L (6.3-8.2) g/dL Albumin 3.2 L (3.5-5.0) g/dL Microbiology - Last 24 Hours (Table) 01/11/18 11:20 Urine Culture - Final Urine,Voided 01/08/18 22:40 Blood Culture - Preliminary Blood No Growth after 72 hours Assessment and Plan Plan: #1 acute on chronic hypoxic respiratory failure: Likely secondary to a COPD exacerbation. Patient did receive a dose of IV steroids in the ER. Continue nebulizer treatments. Patient is down to 3 L of oxygen standing and 92% and tolerating this well. Pulmonary has cleared her for discharge. #2 chest pain with no evidence of acute coronary syndrome. Troponins negative 3 sets. EKG no significant changes. Patient had recent heart catheterization earlier in December revealed a patent stent in the RCA, mild disease involving the ostial left main, mild circumflex disease and patent stent in the mid LAD. Chest pain could be related to musculoskeletal pain. She did have tenderness to palpation of the chest wall #3 history of paroxysmal atrial fibrillation anticoagulated with Xarelto #4 underlying history of hypertension #5 underlying history of hyperlipidemia #6 advanced pulmonary fibrosis versus sarcoidosis: Pulmonary service following #7 previous history of coronary artery disease with history of stent placement #8 previous history of peripheral arterial disease with history of stent placement in the lower extremities #9 left groin hematoma secondary to recent heart catheterization: Ultrasound shows no evidence of pseudoaneurysm. Does reveal a slight enlargement and hematoma from her last hospitalization. Continue to monitor. Hemoglobin 10. #10 UTI continue with Rocephin GI prophylaxis Protonix and DVT prophylaxis Xarelto At this time plan is to was hold discharge and ask cardiology and pulmonary to reevaluate patient and assess if there is any further treatment intervention needed at this time
[2018-01-12] MEDS: RIVAROXABAN 15 MG TAB PO SCH (17:37)
[2018-01-12] MEDS: ATORVASTATIN 20 MG TAB PO SCH (17:38)
[2018-01-12] MEDS: POLYETHYLENE GLYCOL 3350 17 GM POWD.PACK PO SCH (20:56)
[2018-01-12] MEDS: OXcarbazepine 150 MG TAB PO SCH (20:58)
[2018-01-12] MEDS: MONTELUKAST 10 MG TAB PO SCH (20:58)
[2018-01-12] MEDS: MELATONIN 3 MG TABLET PO SCH (20:58)
[2018-01-12] MEDS: PARoxetine 10 MG TAB PO SCH (21:00)
[2018-01-13] MEDS: HYDROcodone/APAP 5-325MG 1 EACH TAB PO PRN ×3 (01:02→09:37)
[2018-01-13] MEDS: NITROGLYCERIN OINT 1 INCH/GM PACKET TOPICAL SCH ×2 (05:26→12:02)
[2018-01-13] MEDS: cefTRIAXone IN SWFI 1,000 MG/10 ML SYRINGE IVP SCH (05:26)
[2018-01-13] MEDS: IPRATROPIUM 0.5 MG/2.5 ML NEBU INHALATION SCH ×5 (07:29→19:45)
[2018-01-13] MEDS: SYMBICORT 80-4.5 MCG INHALER INHALATION SCH ×2 (07:29→19:42)
[2018-01-13] MEDS: CALCIUM POLYCARBOPHIL 625 MG TAB PO SCH (07:48)
[2018-01-13] MEDS: PANTOPRAZOLE 40 MG TABLET PO SCH (07:49)
[2018-01-13] MEDS: ASPIRIN 81 MG PO SCH (07:49)
[2018-01-13] MEDS: LURASIDONE 40 MG TAB PO SCH (07:49)
[2018-01-13] MEDS: POTASSIUM CHLORIDE ER 10 MEQ TAB.ER.PRT PO SCH (07:49)
[2018-01-13] MEDS: FUROSEMIDE 40 MG TAB PO SCH (07:49)
[2018-01-13] MEDS: MAGNESIUM OXIDE 400 MG TAB PO SCH (07:49)
[2018-01-13] MEDS: MIDODRINE 5 MG TAB PO SCH ×3 (07:49→17:06)
[2018-01-13] MEDS: AMIODARONE 200 MG TAB PO SCH (07:49)
[2018-01-13] MEDS: LEVOTHYROXINE 100 MCG TAB PO SCH (07:49)
[2018-01-13] MEDS: METOPROLOL TARTRATE 12.5 MG TAB PO SCH ×2 (07:49→21:03)
[2018-01-13] MEDS: FERROUS SULFATE 325 MG TAB PO SCH (07:49)
[2018-01-13 07:57] LABS: Albumin 3.3 g/dL (3.5-5.0); Calcium 9.1 mg/dL (8.4-10.2); Potassium 4.7 mmol/L (3.5-5.1); Total Bilirubin 0.4 mg/dL (0.2-1.3); Total Protein 5.5 g/dL (6.3-8.2)
[2018-01-13 08:23] LABS: Anisocytosis Slight; Basophils % (A) 0 %; Eosinophils # (A) 0.2 k/uL (0-0.7); Eosinophils % (A) 2 %; HCT 37.3 % (34.0-46.0); HGB 11.3 gm/dL (11.4-16.0); Hypochromasia Marked; Lymphocytes # (A) 2.3 k/uL (1.0-4.8); Lymphocytes % (A) 25 %; MCH 26.6 pg (25.0-35.0); MCHC 30.3 g/dL (31.0-37.0); MCV 87.6 fL (80.0-100.0); Mean Platelet Volume 6.3; Monocytes # (A) 0.7 k/uL (0-1.0); Monocytes % (A) 7 %; Neutrophils # (A) 5.8 k/uL (1.3-7.7); Neutrophils % (A) 63 %; Platelet Count 433 k/uL (150-450); RBC 4.26 m/uL (3.80-5.40); RDW 19.8 % (11.5-15.5); WBC 9.2 k/uL (3.8-10.6)
--- NOTE | 2018-01-13 10:50 | P.PN ---
Subjective Progress Note Date: 01/13/18 HPI: This is a 67-year-old female who is well-known to assistance. She came into the emergency department with chest pain and shortness of breath. The patient was worked up in the emergency room and had negative troponins and her EKG did show a bundle-branch block. Cardiology is on consult, she did undergo a catheterization in December She does have oxygen at all times approximately 2-3 L of home. She did require 5 L of supplemental oxygen in the emergency room. Patient states she was taking her Symbicort and Breo at home that she takes only once a day. Was not using her nebulizer treatments. Chest x-ray was reviewed and was negative. CTA of the chest was negative for PE, did show extensive interstitial pulmonary density consistent with advanced fibrosis. Continues to have mediastinal and bronchial adenopathy. Possibly could relate to sarcoidosis. There is a right upper lobe infiltrate which we will follow. She was noted to have a UTI on admission and had a T-max of 100.7. Patient denies any painful urination or frequent urination. Upon examination she is resting up in bed on 5 L of supplemental oxygen. Her oxygen saturations are 97 % we will decrease her oxygen as tolerated to keep saturations above 90%. She does have a chronic cough that is nonproductive. She denies any current chest pain at this time. States she does have some tenderness in her left groin area ever since she had her cardiac catheterization in December. Interval history 01/11/18- patient is being seen examined and evaluated today on rounds. She is resting up in bed on 3 L of supplemental oxygen which is what her home doses. She states her breathing is much better today. She is using her incentive spirometer and pulling volumes of approximately 2500. She has an occasional cough is chronic, denies any congestion at this time. She has been participating in therapy. Afebrile no further complaints. 01/12/2018: Patient seen and examined. Patient is on 3 L nasal cannula which is her home dose. The patient states her breathing is at her baseline. She is complaining of continued left sided abdominal pain. She denies diarrhea, nausea , vomiting. She denies fevers and chills. She is using her incentive spirometer. Plan is for discharge to [facility] tomorrow. 01/13/18- patient is being seen examined and evaluated today on rounds. She is resting up on supplemental oxygen 2-3 L via nasal cannula. She states her breathing is at her baseline. She denies any cough or congestion. She continues using her incentive spirometer is labeling volumes of approximately 2500. Her respiratory status is relatively stable and at her baseline. Chest x -ray was reviewed, is stable with no acute process and has the same concerning areas as before with the same recommendations as before of an outpatient PET scan. Objective - Vital Signs Vital signs: Vital Signs Temp 97.0 F L 01/13/18 05:30 Pulse 61 01/13/18 08:00 Resp 16 01/13/18 08:00 BP 130/77 01/13/18 05:30 Pulse Ox 91 L 01/13/18 05:30 Intake & Output 01/12/18 01/13/18 01/13/18 18:59 06:59 18:59 Intake Total 470 Output Total 1200 Balance -730 Weight 72.2 kg Intake: Oral 470 Output: Urine 600 Stool 600 Other: Voiding Method Bedside Commode Toilet Toilet # Voids 2 - Exam GENERAL EXAM: Alert, active, comfortable in no apparent distress. HEAD: Normocephalic. EYES: Normal reaction of pupils, equal size. NOSE: Clear with pink turbinates. THROAT: No erythema or exudates. NECK: No masses, no JVD. CHEST: No chest wall deformity. LUNGS: Equal air entry with no crackles, wheeze, rhonchi or dullness. Bases diminished CVS: S1 and S2 normal with no audible mumurs, regular rhythm. ABDOMEN: No hepatosplenomegaly, normal bowel sounds, no guarding or rigidity. EXTREMITIES: No edema noted, pedal pulses palpable. CENTRAL NERVOUS SYSTEM: No focal deficits, tone is normal in all 4 extremities. - Labs CBC & Chem 7: 01/13/18 07:15 01/13/18 07:15 Labs: Abnormal Lab Results - Last 24 Hours (Table) 01/13/18 01/13/18 Range/Units 07:15 07:15 Hgb 11.3 L (11.4-16.0) gm/dL MCHC 30.3 L (31.0-37.0) g/dL RDW 19.8 H (11.5-15.5) % Total Protein 5.5 L (6.3-8.2) g/dL Albumin 3.3 L (3.5-5.0) g/dL Microbiology - Last 24 Hours (Table) 01/08/18 22:40 Blood Culture - Preliminary Blood No Growth after 96 hours 01/11/18 11:20 Urine Culture - Final Urine,Voided Assessment and Plan Assessment: Assessment Acute on chronic hypoxic respiratory failure requiring supplemental oxygen, now at baseline Acute exacerbation of COPD, resolved Left groin hematoma post cardiac catheterization in December Atypical chest pain Mediastinal and bronchial adenopathy CTA Underlying pulmonary fibrosis Present on admission UTI History of CAD with previous stenting Hypertension Hyperlipidemia Paroxysmal atrial fibrillation Plan Patient can be cleared for discharge from a pulmonary standpoint. Breathing is at baseline. Repeat chest x-ray was reviewed is stable with no acute process and has the same concerning areas as before with the same recommendations as before of an outpatient PET scan. Medications have been reviewed and will be continued as ordered, Jeff Lawrence. No need for systemic steroids from pulmonary standpoint. Ultrasound of the left groin revealed hematoma. Antibiotics for UTI. Obtain an outpatient PET scan to look at RUL with a possible navigational bronchoscopy. The patient's daughter is requesting that the PET scan done inpatient however this is not however it is done education has been provided. Continue with pulmonary hygiene, coughing and deep breathing exercises, and supportive care. Supplemental oxygen to maintain oxygen saturations of 90% or better. Wean oxygen down as tolerated to home dose of 2-3L. Initiate and encourage incentive spirometer. Continue nebulizer treatments. GI and DVT prophylaxis. Continue with PT and OT. We will continue to monitor labs/results and adjust treatment as necessary. I performed an examination of the patient and discussed their management with the nurse practitioner. I have reviewed the nurse practitioner's note and agree with the documented findings and plan of care.
[2018-01-13] MEDS: ZINC OXIDE 20% OINT 28.4 GM TUBE TOPICAL SCH ×2 (11:46→21:04)
[2018-01-13] MEDS: NYSTATIN 100,000 UNIT/GM POWD 15 GM TOPICAL SCH ×2 (11:46→21:03)
[2018-01-13] MEDS: MULTIVITAMINS, THERA 1 EACH TAB PO SCH (12:02)
--- NOTE | 2018-01-13 13:11 | XR ---
EXAMINATION TYPE: XR chest 2V DATE OF EXAM: 01/13/2018 COMPARISON: 01/08/2018 and 01/09/2018 HISTORY: Shortness of breath TECHNIQUE: Frontal and lateral views of the chest are obtained. FINDINGS: There is no focal consolidation, pneumothorax or pulmonary vascular congestion. However, t here is redemonstration of a right upper lobe pulmonary nodule with a spiculated appearance in the ri ght upper lobe. Background pulmonary emphysema and interstitial prominence relating to fibrosis are p resent. Cardia mediastinal silhouette is within normal limits. Osseous structures are intact with mod erate acromioclavicular arthropathy bilaterally. IMPRESSION: 1. No acute cardiopulmonary process. 2. Spiculated right upper lobe pulmonary nodule patient is concerning for underlying malignancy. Furt her evaluation with PET CT could be performed. 3. Background pulmonary emphysema and fibrosis.
--- NOTE | 2018-01-13 14:12 | P.PN ---
Subjective Progress Note Date: 01/13/18 Kathy Mckeon is a 67-year-old female who presented to [facility] emergency room with a chief complaint of chest pain that started at 3 PM on 01/08/2018 patient was also having shortness of breath she was evaluated in the emergency room and was admitted to telemetry floor for further evaluation and treatment. In the emergency room patient had an EKG that revealed normal sinus rhythm with right bundle branch block, 3 sets of troponin were negative. Patient also had elevated d-dimer computed tomography scan angiogram of the chest and was negative for pulmonary embolism. Chest x-ray was suspicious for pulmonary fibrosis without evidence of pneumonia or overt heart failure. Patient has a known history of hypertension, hypothyroidism, hyperlipidemia, atrial fibrillation, and previous history of stroke. Patient also has a known history of coronary artery disease with previous history of stent placement. She also has a known history of peripheral vascular occlusive disease with multiple stent placement in the lower extremities in the past. 01/10/2018 patient reports some improvement in her shortness of breath. She was on 5 L satting at 97%. Initially stable we'll try to titrate down on her oxygen. Patient had reported chest pain. No evidence of any acute coronary syndrome. Patient seen by cardiology. Had recent heart catheterization earlier this month. Patient complaining of left groin pain with evidence of a left hematoma for her from her recent heart catheterization. There is no evidence of pseudoaneurysm. But the hematoma has had slight interval enlargement. Patient denies any nausea vomiting. Denies any bowel movement changes or urinary symptoms. She's been seen by both cardiology and pulmonary service. 01/11/2018 patient is showing improvement. She is back to her home dose of 3 L at 92%. Her chest discomfort has improved. She has been up and walking with physical therapy. Pulmonary service and cardiology had cleared her for discharge. The plan is to proceed with discharged to [facility]. According to case supervisor the Medicaid insurance will cover further stay at the snf with copay. Patient is reporting improvement in her shortness of breath. Denies any nausea or vomiting. Reports having bowel movements. Denies any difficulty urinating. On 01/12/2018 patient is doing better she is alert and oriented 3 in no apparent distress she was evaluated by cardiology and pulmonary and was cleared for discharge. However, patient's daughter is feeling that patient is not ready yet for discharge and that she had multiple admissions in the last 2 month , at this time I have asked cardiology and pulmonary to reevaluate patient assess if there is any further intervention needed at this time. We'll delay discharge plan until patient is reevaluated by specialist for any further treatment plans. Clinically patient is doing better she is alert and oriented she denies any fever or chills no chest pain no shortness of cough no nausea or vomiting no abdominal pain no diarrhea no frequency of his urination no burning no urgency no hematuria. 01/13/2018 patient is still complaining of musculoskeletal chest pain and back pain and left groin pain. Case discussed with cardiology, pulmonary service and oncology service. We'll await their further recommendations. Patient is on her home dose of oxygen at 3 L at 91%. Patient's daughter wants as much of workup that can be done in hospital to be completed. She still feels her mom is not ready for discharge. We'll wait consulting physician recommendations. Final plan is to be discharged back to [facility]. Patient's pain medication will be adjusted. Objective - Vital Signs Vital signs: Vital Signs Temp 97.0 F L 01/13/18 05:30 Pulse 60 01/13/18 12:01 Resp 16 01/13/18 08:00 BP 129/60 01/13/18 12:01 Pulse Ox 91 L 01/13/18 05:30 Intake & Output 01/12/18 01/13/18 01/13/18 18:59 06:59 18:59 Intake Total 470 Output Total 1200 Balance -730 Weight 72.2 kg Intake: Oral 470 Output: Urine 600 Stool 600 Other: Voiding Method Bedside Commode Toilet Toilet # Voids 2 6 - Exam Head normocephalic Neck supple Lungs slightly diminished bilaterally Heart regular rate and rhythm S1-S2, no rub or gallop Abdomen is soft nontender nondistended positive bowel sounds no hepatosplenomegaly. Left groin hematoma. Area is firm and hard. No discoloration at that site. However patient does have some yellowish greenish bruising near the hip area. Extremities no edema Neuro alert and orientated to 3 - Labs CBC & Chem 7: 01/13/18 07:15 01/13/18 07:15 Labs: Abnormal Lab Results - Last 24 Hours (Table) 01/13/18 01/13/18 Range/Units 07:15 07:15 Hgb 11.3 L (11.4-16.0) gm/dL MCHC 30.3 L (31.0-37.0) g/dL RDW 19.8 H (11.5-15.5) % Total Protein 5.5 L (6.3-8.2) g/dL Albumin 3.3 L (3.5-5.0) g/dL Microbiology - Last 24 Hours (Table) 01/08/18 22:40 Blood Culture - Preliminary Blood No Growth after 96 hours 01/11/18 11:20 Urine Culture - Final Urine,Voided Assessment and Plan Assessment: #1 acute on chronic hypoxic respiratory failure: Likely secondary to a COPD exacerbation. Patient did receive a dose of IV steroids in the ER. Continue nebulizer treatments. Patient is down to 3 L of oxygen standing and 92% and tolerating this well. Pulmonary has cleared her for discharge. #2 chest pain with no evidence of acute coronary syndrome. Troponins negative 3 sets. EKG no significant changes. Patient had recent heart catheterization earlier in December revealed a patent stent in the RCA, mild disease involving the ostial left main, mild circumflex disease and patent stent in the mid LAD. Chest pain could be related to musculoskeletal pain. She did have tenderness to palpation of the chest wall. #3 history of paroxysmal atrial fibrillation anticoagulated with Xarelto #4 underlying history of hypertension #5 underlying history of hyperlipidemia #6 advanced pulmonary fibrosis versus sarcoidosis: Pulmonary service following #7 previous history of coronary artery disease with history of stent placement #8 previous history of peripheral arterial disease with history of stent placement in the lower extremities #9 left groin hematoma secondary to recent heart catheterization: Ultrasound shows no evidence of pseudoaneurysm. Does reveal a slight enlargement and hematoma from her last hospitalization. Continue to monitor. #10 UTI continue with Rocephin. Urine culture negative #11 pulmonary lung nodule and mediastinal adenopathy: Pulmonary recommending PET scan outpatient. Also, will have patient evaluated by oncology GI prophylaxis Protonix and DVT prophylaxis Xarelto Pain management: We'll increase her Odin to 7.5 mg every 4 hours Continue to work with physical therapy. We will await further consulting physician recommendations I performed an examination of the patient and discussed their management with the physician Oven Stripper. I have reviewed the Physician Oven Stripper's notes and agree with the documented findings and plan of care
[2018-01-13] MEDS: HYDROcodone/APAP 7.5-325MG 1 EACH TAB PO PRN ×2 (14:14→21:13)
--- NOTE | 2018-01-13 15:09 | P.PN ---
Subjective Mrs. Mckeon is a pleasant 67-year-old female past medical history significant for coronary artery disease with angioplasty of LAD, paroxysmal atrial fibrillaiton on long-term anticoagulation, COPD on home oxygen, hypertension, dyslipidemia, sleep apnea, prior history of stroke, peripheral arterial disease and mild memory impairment. She recently underwent cardiac catheterization earlier this month that revealed a patent stent in the proximal RCA, mild disease in the ostial left main around 30%, mild disease in the circumflex artery and patent stent in mid-LAD with mild disease involving the ostial LAD. She was seen initially on admission for chest pain and an acute coronary event has been ruled out with no EKG evidence of acute changes and negative cardiac enzymes. An ultrasound of the left groin has been obtained to assess for pain since her catheterization procedure and it revealed a left groin hematoma with some interval liquefaction and slight enlargement measuring 5.8x3.7 cm with no evidence of pseudoaneurysm. This is a stable finding. Repeat chest xray yesterday revealed no acute cardiopulmonary process, right upper lobe pulmonary nodule concerning for underlying malignancy, PET recommended and background emphysema and pulmonary fibrosis. Recent laboratory data reviewed, hgb 11.3, plt 433, sodium 138, potassium 4.7, creatinine 0.88, total protein 5.5 and albumin 3.3. Blood pressure 129/60 heart rate 60 afebrile and maintaining oxygen saturation on nasal cannula 3 litres. Telemetry tracings have been unremarkable. At the time of my exam she is seen resting comfortably in bed in no acute distress. She complains of generalized pain all over with no specific aggravating or alleviating factors. She states her breathing feels ok, but no not perfect. She specifically complains of non-specific chest pain, back pain, leg pain and left groin pain. She denies symptoms of dizziness, palpitations, nausea, vomiting or diaphoresis. She also denies PND or orthopnea. Objective - Vital Signs Vital signs: Vital Signs Temp 97.0 F L 01/13/18 05:30 Pulse 60 01/13/18 12:01 Resp 16 01/13/18 08:00 BP 129/60 01/13/18 12:01 Pulse Ox 91 L 01/13/18 05:30 Intake & Output 01/12/18 01/13/18 01/13/18 18:59 06:59 18:59 Intake Total 470 Output Total 1200 Balance -730 Weight 72.2 kg Intake: Oral 470 Output: Urine 600 Stool 600 Other: Voiding Method Bedside Commode Toilet Toilet # Voids 2 6 - Exam GENERAL: Well-appearing, well-nourished and in no acute distress. Appears frail. NECK: Supple without JVD or thyromegaly. LUNGS: Breath sounds clear to auscultation bilaterally. Respiration equal and unlabored. No wheezes, rales or rhonchi. HEART: Regular rate and rhythm without murmurs, rubs or gallops. S1 and S2 heard. EXTREMITIES: Normal range of motion, no edema. No clubbing or cyanosis. Peripheral pulses intact. Left groin soft, non-tender with small knot felt. Skin in that area is moist with evidence of white powder substance, intact with no ecchymosis noted. - Labs CBC & Chem 7: 01/13/18 07:15 01/13/18 07:15 Labs: Abnormal Lab Results - Last 24 Hours (Table) 01/13/18 01/13/18 Range/Units 07:15 07:15 Hgb 11.3 L (11.4-16.0) gm/dL MCHC 30.3 L (31.0-37.0) g/dL RDW 19.8 H (11.5-15.5) % Total Protein 5.5 L (6.3-8.2) g/dL Albumin 3.3 L (3.5-5.0) g/dL Microbiology - Last 24 Hours (Table) 01/08/18 22:40 Blood Culture - Preliminary Blood No Growth after 96 hours 01/11/18 11:20 Urine Culture - Final Urine,Voided Assessment and Plan Assessment: ASSESSMENT 1. Chest pain, atypical. An acute coronary event has been ruled out. Preserved LV systolic function with EF 55-60%. 2. History of coronary artery disease with recent cardiac catheterization revealing patent stents and mild disease noted to left main, circumflex and LAD 3. Peripheral arterial disease s/p iliac stenting 4. Hypertension 5. Dyslipidemia 6. COPD on home oxygen 7. Sleep apnea 8. Left groin hematoma 9. Paroxysmal atrial fibrillation on assisted anticoaguation with Xarelto 10. UTI on rocephin 11. Lung nodule, oncology following PLAN Continue with current medical therapy. Discontinue nitropaste and continue to monitor for ongoing symptoms of chest pain. May consider adding a long acting nitrate if she continues with chest pain , however she has had hypotension in the past for which medications have been discontinued. Her pain however was thought to be musckuloskeltal so nitrates may be ineffective. Increase activity as tolerated and ongoing work with physical therapy. Further recommendations based on clinical course. Nurse Practitioner note has been reviewed, I agree with a documented findings and plan of care. Patient was seen and examined.
[2018-01-13] MEDS: RIVAROXABAN 15 MG TAB PO SCH (17:06)
[2018-01-13] MEDS: ATORVASTATIN 20 MG TAB PO SCH (17:06)
--- NOTE | 2018-01-13 19:37 | P.CONS ---
History of Present Illness - Reason for Consult Consult date: 01/13/18 pulmonary nodules, medistinal lymphadenopathy Requesting physician: Ashley Peters - Chief Complaint SOB, Chest pain - History of Present Illness Ms. Mckeon is a very pleasant 67 year old female with a complex medical history following with multiple Specialists. We have been asked to see pt for 1x2 cm right upper lobe infiltrate and mediastinal lymphadenopathy. Patient states that she weighed 298 pounds last year, denied sweats at night- other than hot flashes-denied difficulty swallowing, nausea or vomiting, appetite fair, no hemoptysis, acute changes in breathing, pleuritic type chest pain, chest heaviness, no acute changes in bowel or bladder habits, no acute, persistent or progressive pains. She had her right kidney removed for cancer 6 or 7 years ago. Review of Systems 10 point ROS as stated in IH Past Medical History Past Medical History: Atrial Fibrillation, Asthma, Coronary Artery Disease (CAD) , Cancer, COPD, CVA/TIA, Eye Disorder, GERD/Reflux, Hyperlipidemia, Hypertension , Memory Impairment, Myocardial Infarction (MS), Osteoarthritis (OA), Respiratory Disorder, Sleep Apnea/CPAP/BIPAP, Thyroid Disorder, Vascular Disorder Additional Past Medical History / Comment(s): febrile, recent UTI, hypotensive. Other hx: Home O2 prn but ATC lately, CVA x 3 with R arm and R leg weakness , vascular dementia, R trigeminal neuralgia, R eye astigmatism, occluded JOSE ALEJANDRO, PVD, past htn but b/ps running low now, IBS, diarrhea/constipation, chronic abdominal pain, chronic back pain, migraines-none recently, one hip higher, RLS , tremors, CHANDU without device (unable to tolerate), UTIs, hypothyroid, nasopharyngeal inflammatory mass, TMJ yrs ago, R kidney cancer and uterine cancer with surgeries. Last Myocardial Infarction Date:: 11/03/14 History of Any Multi-Drug Resistant Organisms: None Reported Year Discovered:: None MDRO Source:: None Past Surgical History: Adenoidectomy, Bladder Surgery, Cholecystectomy, Ear Surgery, Heart Catheterization With Stent, Hysterectomy, Orthopedic Surgery, Tonsillectomy Additional Past Surgical History / Comment(s): 11/28/14 PTCA with stents, left CAROTID ENDARTERECTOMY, MULTIPLE BILATERAL STENTS IN LOWER EXTREMITIES, R elbow surgery as a child, R ear surgery for blockage, bilateral ankle arthroscopies, bilateral knee arthroscopies, deviated septal surgery, L great toe pinned, colonoscopies/benign polypectomy, R nephrectomy and partial bladder removal, skin lesion from nose. Past Anesthesia/Blood Transfusion Reactions: Motion Sickness Date of Last Stent Placement:: 10/2014 Past Psychological History: Bipolar Smoking Status: Former smoker Past Alcohol Use History: None Reported Past Drug Use History: None Reported - Past Family History Mother Family Medical History: COPD Additional Family Medical History / Comment(s): Mother is . She from respiratory failure. Father Family Medical History: Coronary Artery Disease (CAD), Myocardial Infarction (MS ) Additional Family Medical History / Comment(s): Father had gout Medications and Allergies Home Medications Medication Instructions Recorded Confirmed Type PARoxetine HCL 30 mg PO HS 07/02/14 01/09/18 History OXcarbazepine [Trileptal] 150 mg PO HS 11/04/14 01/09/18 History Melatonin 3 mg PO HS 03/05/16 01/09/18 History Atorvastatin Calcium [Lipitor] 20 mg PO DAILY@1700 06/13/17 01/09/18 History Calcium Polycarbophil [Fibercon] 1,250 mg PO DAILY 06/13/17 01/09/18 History Ferrous Sulfate [Iron (65 MG 325 mg PO DAILY 06/13/17 01/09/18 History Elemental)] Furosemide [Lasix] 40 mg PO DAILY@0600 06/13/17 01/09/18 History Levothyroxine Sodium [Synthroid] 100 mcg PO DAILY@0600 06/13/17 01/09/18 History Lurasidone HCl [Latuda] 20 mg PO DAILY 06/13/17 01/09/18 History Magnesium Oxide [Mag-Ox] 400 mg PO DAILY 06/13/17 01/09/18 History Montelukast [Singulair] 10 mg PO HS 06/13/17 01/09/18 History Pantoprazole Sodium [Protonix] 40 mg PO DAILY 06/13/17 01/09/18 History Potassium Chloride [Klor-Con 10] 10 meq PO DAILY 06/13/17 01/09/18 History Tiotropium [place] [Spiriva] 1 cap INHALATION RT-DAILY 06/14/17 01/09/18 History Rivaroxaban [Xarelto] 15 mg PO W/SUPPER #30 tab 06/16/17 01/09/18 Rx Nitroglycerin Sl Tabs [Nitrostat] 0.4 mg SUBLINGUAL Q5M PRN tab 12/01/17 Rx Polyethylene Glycol 3350 [Miralax] 17 gm PO HS powd.pack 12/01/17 01/09/18 Rx Amiodarone [Cordarone] 200 mg PO DAILY tab 12/10/17 01/09/18 Rx Lactose-Reduced Food [Ensure Plus] 240 ml PO BID@0900,1700 12/16/17 01/09/18 History Multivitamins, Thera [Multivitamin 1 tab PO DAILY 12/16/17 01/09/18 History (formulary)] Docusate [Colace] 100 mg PO BID@0800,1700 PRN #0 12/17/17 01/09/18 Rx Metoprolol Tartrate [Lopressor] 12.5 mg PO BID #60 tab 12/27/17 01/09/18 Rx Nystatin 100,000 Unit/gm Powd 1 applic TOPICAL BID #60 applic 12/27/17 01/09/18 Rx [Mycostatin Powder] HYDROcodone/APAP 5-325MG [[place] 1 tab PO Q4HR PRN #60 tab 12/28/17 01/09/18 Rx 5-325] Midodrine [ProAmatine] 5 mg PO TID #90 tablet 12/28/17 01/09/18 Rx Albuterol Nebulized [Ventolin 2.5 mg INHALATION RT-Q8H PRN 01/09/18 01/09/18 History Nebulized] Dimethicone/Zinc Oxide [Inzo Zinc 1 applic TOPICAL BID 01/09/18 01/09/18 History Oxide Barrier Cream] Fluticasone/Vilanterol [Breo 1 puff INHALATION RT-DAILY 01/09/18 01/09/18 History Ellipta 100-25 Mcg Inhaler] Allergies Allergy/AdvReac Type Severity Reaction Status Date / Time albuterol Allergy Rash/Hives Verified 01/08/18 22:31 latex Allergy Rash/Hives Verified 01/09/18 12:46 Penicillins Allergy Unknown Verified 01/09/18 12:46 Childhood Physical Exam Vitals: Vital Signs Temp Pulse Resp BP Pulse Ox 01/13/18 15:16 16 01/13/18 15:00 98.2 F 66 16 129/62 92 L 01/13/18 12:01 60 129/60 01/13/18 08:00 61 16 01/13/18 05:30 97.0 F L 61 16 130/77 91 L 01/13/18 00:00 69 16 01/12/18 23:45 69 106/57 01/12/18 23:00 97.0 F L 68 16 110/55 92 L Intake and Output 01/13/18 01/13/18 01/13/18 06:59 14:59 22:59 Other: Voiding Method Toilet Toilet Toilet # Voids 2 6 - Constitutional General appearance: average body habitus, cooperative, no acute distress - EENT Eyes: anicteric sclerae, EOMI ENT: normal oropharynx - Neck Neck: no lymphadenopathy - Respiratory Respiratory: bilateral: diminished - Cardiovascular Heart sounds: normal: S1, S2 - Gastrointestinal General gastrointestinal: soft - Integumentary Integumentary: pale - Musculoskeletal Musculoskeletal: strength equal bilaterally - Psychiatric Psychiatric: A&O x's 3, appropriate affect Results CBC & Chem 7: 01/13/18 07:15 01/13/18 07:15 Labs: Abnormal Lab Results - Last 24 Hours (Table) 01/13/18 01/13/18 Range/Units 07:15 07:15 Hgb 11.3 L (11.4-16.0) gm/dL MCHC 30.3 L (31.0-37.0) g/dL RDW 19.8 H (11.5-15.5) % Total Protein 5.5 L (6.3-8.2) g/dL Albumin 3.3 L (3.5-5.0) g/dL Microbiology - Last 24 Hours (Table) 01/08/18 22:40 Blood Culture - Preliminary Blood No Growth after 96 hours 01/11/18 11:20 Urine Culture - Final Urine,Voided Chest x-ray: report reviewed CT scan - chest: report reviewed Assessment and Plan (1) Lung nodule Current Visit: Yes Status: Acute Priority: High Code(s): R91.1 - SOLITARY PULMONARY NODULE SNOMED Code(s): 040736592 (2) Lymphadenopathy Current Visit: Yes Status: Acute Priority: High Code(s): R59.1 - GENERALIZED ENLARGED LYMPH NODES SNOMED Code(s): 31005034 Plan: Chart was reviewed, no significant weight changes in the past 4 years noted. Agree with plan of care, Pulmonary planning PET scan, based on results biopsy would be scheduled as appropriate. Oncology follow up as needed.
[2018-01-13] MEDS: POLYETHYLENE GLYCOL 3350 17 GM POWD.PACK PO SCH (21:03)
[2018-01-13] MEDS: MELATONIN 3 MG TABLET PO SCH (21:03)
[2018-01-13] MEDS: OXcarbazepine 150 MG TAB PO SCH (21:03)
[2018-01-13] MEDS: PARoxetine 10 MG TAB PO SCH (21:03)
[2018-01-13] MEDS: MONTELUKAST 10 MG TAB PO SCH (21:03)
[2018-01-14] MEDS: HYDROcodone/APAP 7.5-325MG 1 EACH TAB PO PRN ×3 (01:09→10:44)
[2018-01-14] MEDS: LEVOTHYROXINE 100 MCG TAB PO SCH (06:10)
[2018-01-14] MEDS: FUROSEMIDE 40 MG TAB PO SCH (06:11)
[2018-01-14 07:08] LABS: Glucose,Whole Blood 93 mg/dL (75-99)
[2018-01-14 07:17] LABS: Anisocytosis Slight; Basophils % (A) 0 %; Eosinophils # (A) 0.3 k/uL (0-0.7); Eosinophils % (A) 3 %; HCT 37.5 % (34.0-46.0); HGB 11.3 gm/dL (11.4-16.0); Hypochromasia Marked; Lymphocytes # (A) 2.8 k/uL (1.0-4.8); Lymphocytes % (A) 27 %; MCH 26.2 pg (25.0-35.0); MCHC 30.2 g/dL (31.0-37.0); MCV 86.7 fL (80.0-100.0); Mean Platelet Volume 6.7; Monocytes # (A) 0.8 k/uL (0-1.0); Monocytes % (A) 8 %; Neutrophils # (A) 6.1 k/uL (1.3-7.7); Neutrophils % (A) 60 %; Platelet Count 437 k/uL (150-450); RBC 4.33 m/uL (3.80-5.40); RDW 19.5 % (11.5-15.5); WBC 10.2 k/uL (3.8-10.6)
[2018-01-14 07:33] LABS: Albumin 3.4 g/dL (3.5-5.0); Calcium 9.1 mg/dL (8.4-10.2); Potassium 4.7 mmol/L (3.5-5.1); Total Bilirubin 0.3 mg/dL (0.2-1.3); Total Protein 5.7 g/dL (6.3-8.2)
[2018-01-14] MEDS: IPRATROPIUM 0.5 MG/2.5 ML NEBU INHALATION SCH ×3 (07:50→15:26)
[2018-01-14] MEDS: SYMBICORT 80-4.5 MCG INHALER INHALATION SCH (07:50)
--- NOTE | 2018-01-14 09:06 | P.PN ---
Subjective Progress Note Date: 01/14/18 HPI: This is a 67-year-old female who is well-known to assistance. She came into the emergency department with chest pain and shortness of breath. The patient was worked up in the emergency room and had negative troponins and her EKG did show a bundle-branch block. Cardiology is on consult, she did undergo a catheterization in December She does have oxygen at all times approximately 2-3 L of home. She did require 5 L of supplemental oxygen in the emergency room. Patient states she was taking her Symbicort and Breo at home that she takes only once a day. Was not using her nebulizer treatments. Chest x-ray was reviewed and was negative. CTA of the chest was negative for PE, did show extensive interstitial pulmonary density consistent with advanced fibrosis. Continues to have mediastinal and bronchial adenopathy. Possibly could relate to sarcoidosis. There is a right upper lobe infiltrate which we will follow. She was noted to have a UTI on admission and had a T-max of 100.7. Patient denies any painful urination or frequent urination. Upon examination she is resting up in bed on 5 L of supplemental oxygen. Her oxygen saturations are 97 % we will decrease her oxygen as tolerated to keep saturations above 90%. She does have a chronic cough that is nonproductive. She denies any current chest pain at this time. States she does have some tenderness in her left groin area ever since she had her cardiac catheterization in December. Interval history 01/11/18- patient is being seen examined and evaluated today on rounds. She is resting up in bed on 3 L of supplemental oxygen which is what her home doses. She states her breathing is much better today. She is using her incentive spirometer and pulling volumes of approximately 2500. She has an occasional cough is chronic, denies any congestion at this time. She has been participating in therapy. Afebrile no further complaints. 01/12/2018: Patient seen and examined. Patient is on 3 L nasal cannula which is her home dose. The patient states her breathing is at her baseline. She is complaining of continued left sided abdominal pain. She denies diarrhea, nausea , vomiting. She denies fevers and chills. She is using her incentive spirometer. Plan is [facility] tomorrow. 01/13/18- patient is being seen examined and evaluated today on rounds. She is resting up on supplemental oxygen 2-3 L via nasal cannula. She states her breathing is at her baseline. She denies any cough or congestion. She continues using her incentive spirometer is labeling volumes of approximately 2500. Her respiratory status is relatively stable and at her baseline. Chest x -ray was reviewed, is stable with no acute process and has the same concerning areas as before with the same recommendations as before of an outpatient PET scan. 01/14/18- patient is being seen examined and evaluated today on rounds. She is resting up in bed on her home dose of 3 L of supplemental oxygen via nasal cannula. She feels her breathing is at her baseline. Her most cells skeletal pain in the chest has been improving. Patient was seen by oncology yesterday and they agree with the outpatient PET scan and possible biopsy if warranted. Patient is hemodynamically stable. Breathing at baseline. Objective - Vital Signs Vital signs: Vital Signs Temp 97.0 F L 01/14/18 05:30 Pulse 59 L 01/14/18 05:30 Resp 20 01/14/18 05:30 BP 150/70 01/14/18 05:30 Pulse Ox 100 01/14/18 05:30 Intake & Output 01/13/18 01/14/18 01/14/18 18:59 06:59 18:59 Intake Total 800 Balance 800 Intake: Oral 800 Other: Voiding Method Toilet Toilet # Voids 6 1 - Exam GENERAL EXAM: Alert, active, comfortable in no apparent distress. HEAD: Normocephalic. EYES: Normal reaction of pupils, equal size. NOSE: Clear with pink turbinates. THROAT: No erythema or exudates. NECK: No masses, no JVD. CHEST: No chest wall deformity. LUNGS: Equal air entry with no crackles, wheeze, rhonchi or dullness. Bases diminished CVS: S1 and S2 normal with no audible mumurs, regular rhythm. ABDOMEN: No hepatosplenomegaly, normal bowel sounds, no guarding or rigidity. EXTREMITIES: No edema noted, pedal pulses palpable. CENTRAL NERVOUS SYSTEM: No focal deficits, tone is normal in all 4 extremities. - Labs CBC & Chem 7: 01/14/18 06:40 01/14/18 06:40 Labs: Abnormal Lab Results - Last 24 Hours (Table) 01/14/18 01/14/18 Range/Units 06:40 06:40 Hgb 11.3 L (11.4-16.0) gm/dL MCHC 30.2 L (31.0-37.0) g/dL RDW 19.5 H (11.5-15.5) % Sodium 135 L (137-145) mmol/L Chloride 95 L (98-107) mmol/L Glucose 67 L (74-99) mg/dL Total Protein 5.7 L (6.3-8.2) g/dL Albumin 3.4 L (3.5-5.0) g/dL Microbiology - Last 24 Hours (Table) 01/08/18 22:40 Blood Culture - Preliminary Blood No Growth after 120 hours Assessment and Plan Assessment: Assessment Acute on chronic hypoxic respiratory failure requiring supplemental oxygen, now at baseline Acute exacerbation of COPD, resolved Left groin hematoma post cardiac catheterization in December Atypical chest pain Mediastinal and bronchial adenopathy CTA Underlying pulmonary fibrosis Present on admission UTI History of CAD with previous stenting Hypertension Hyperlipidemia Paroxysmal atrial fibrillation Plan Patient can be cleared for discharge from a pulmonary standpoint. Breathing is at baseline. Repeat chest x-ray was reviewed is stable with no acute process and has the same concerning areas as before with the same recommendations as before of an outpatient PET scan. Medications have been reviewed and will be continued as ordered, Symbicort AtrovenIsmael gonzalesulajanelle. No need for systemic steroids from pulmonary standpoint. Ultrasound of the left groin revealed hematoma. Antibiotics for UTI. Obtain an outpatient PET scan to look at RUL with a possible navigational bronchoscopy. The patient's daughter is requesting that the PET scan done inpatient however this is not however it is done education has been provided. Continue with pulmonary hygiene, coughing and deep breathing exercises, and supportive care. Supplemental oxygen to maintain oxygen saturations of 90% or better. Wean oxygen down as tolerated to home dose of 2-3L. Initiate and encourage incentive spirometer. Continue nebulizer treatments. GI and DVT prophylaxis. Continue with PT and OT. We will continue to monitor labs/results and adjust treatment as necessary. I performed an examination of the patient and discussed their management with the nurse practitioner. I have reviewed the nurse practitioner's note and agree with the documented findings and plan of care.
[2018-01-14] MEDS: cefTRIAXone IN SWFI 1,000 MG/10 ML SYRINGE IVP SCH (09:19)
[2018-01-14] MEDS: MIDODRINE 5 MG TAB PO SCH ×3 (09:24→13:47)
[2018-01-14] MEDS: PANTOPRAZOLE 40 MG TABLET PO SCH (09:26)
[2018-01-14] MEDS: CALCIUM POLYCARBOPHIL 625 MG TAB PO SCH (09:26)
[2018-01-14] MEDS: MULTIVITAMINS, THERA 1 EACH TAB PO SCH (09:26)
[2018-01-14] MEDS: FERROUS SULFATE 325 MG TAB PO SCH (09:26)
[2018-01-14] MEDS: METOPROLOL TARTRATE 12.5 MG TAB PO SCH (09:28)
[2018-01-14] MEDS: POTASSIUM CHLORIDE ER 10 MEQ TAB.ER.PRT PO SCH (09:28)
[2018-01-14] MEDS: ASPIRIN 81 MG PO SCH (09:29)
[2018-01-14] MEDS: AMIODARONE 200 MG TAB PO SCH (09:29)
[2018-01-14] MEDS: MAGNESIUM OXIDE 400 MG TAB PO SCH (09:29)
[2018-01-14] MEDS: LURASIDONE 40 MG TAB PO SCH (09:30)
[2018-01-14] MEDS: NYSTATIN 100,000 UNIT/GM POWD 15 GM TOPICAL SCH (09:32)
[2018-01-14] MEDS: ZINC OXIDE 20% OINT 28.4 GM TUBE TOPICAL SCH (09:32)
[2018-01-14 14:17] VITALS: BMI 27.3
--- NOTE | 2018-01-14 14:21 | P.DS ---
Providers Date of admission: 01/09/18 02:58 Expected date of discharge: 01/14/18 Attending physician: Abelardo Kelly Consults: 01/09/18 02:58 Consult Physician Urgent Consulting Provider: [facility] Consult Reason/Comments: Chest pain Do you want consulting provider notified?: Yes 01/09/18 15:31 Consult Physician Routine Consulting Provider: Delgado Rodriguez Consult Reason/Comments: Shortness of breath Do you want consulting provider notified?: Yes 01/13/18 08:52 Consult Physician Routine Consulting Provider: Josef Bean Consult Reason/Comments: pulmonary nodule and adenopathy Do you want consulting provider notified?: Yes Primary care physician: Lolita Fraga [facility] Course: #1 acute on chronic hypoxic respiratory failure: Likely secondary to a COPD exacerbation. Patient did receive a dose of IV steroids in the ER. Continue nebulizer treatments. Patient is down to 3 L of oxygen standing and 92% and tolerating this well. Pulmonary has cleared her for discharge. #2 chest pain with no evidence of acute coronary syndrome. Troponins negative 3 sets. EKG no significant changes. Patient had recent heart catheterization earlier in December revealed a patent stent in the RCA, mild disease involving the ostial left main, mild circumflex disease and patent stent in the mid LAD. Chest pain could be related to musculoskeletal pain. She did have tenderness to palpation of the chest wall. #3 history of paroxysmal atrial fibrillation on anticoagulation #4 underlying history of hypertension #5 Hyperlipidemia #6 advanced pulmonary fibrosis versus sarcoidosis: Seen and evaluated by pulmonology. Follow-up in the office. #7 Coronary artery disease with history of stent placement #8 Peripheral arterial disease with history of stent placement in the lower extremities #9 left groin hematoma secondary to recent heart catheterization: Ultrasound shows no evidence of pseudoaneurysm. Does reveal a slight enlargement and hematoma from her last hospitalization. Continue to monitor. #10 UTI Urine culture negative. Received 5 days course of antibiotic during this hospitalization #11 pulmonary lung nodule and mediastinal adenopathy: Pulmonary recommending PET scan outpatient. Also, will have patient evaluated by oncology Plan - Discharge Summary Discharge Rx Participant: No New Discharge Prescriptions: Continue PARoxetine HCL 30 mg PO HS OXcarbazepine [Trileptal] 150 mg PO HS Melatonin 3 mg PO HS Potassium Chloride [Klor-Con 10] 10 meq PO DAILY Pantoprazole Sodium [Protonix] 40 mg PO DAILY Montelukast [Singulair] 10 mg PO HS Magnesium Oxide [Mag-Ox] 400 mg PO DAILY Lurasidone HCl [Latuda] 20 mg PO DAILY Levothyroxine Sodium [Synthroid] 100 mcg PO DAILY@0600 Furosemide [Lasix] 40 mg PO DAILY@0600 Ferrous Sulfate [Iron (65 MG Elemental)] 325 mg PO DAILY Calcium Polycarbophil [Fibercon] 1,250 mg PO DAILY Atorvastatin Calcium [Lipitor] 20 mg PO DAILY@1700 Tiotropium [place] [Spiriva] 1 cap INHALATION RT-DAILY Rivaroxaban [Xarelto] 15 mg PO W/SUPPER #30 tab Nitroglycerin Sl Tabs [Nitrostat] 0.4 mg SUBLINGUAL Q5M PRN tab PRN Reason: Chest Pain Polyethylene Glycol 3350 [Miralax] 17 gm PO HS powd.pack Amiodarone [Cordarone] 200 mg PO DAILY tab Lactose-Reduced Food [Ensure Plus] 240 ml PO BID@0900,1700 Multivitamins, Thera [Multivitamin (formulary)] 1 tab PO DAILY Docusate [Colace] 100 mg PO BID@0800,1700 PRN #0 PRN Reason: Constipation Metoprolol Tartrate [Lopressor] 12.5 mg PO BID #60 tab Nystatin 100,000 Unit/gm Powd [Mycostatin Powder] 1 applic TOPICAL BID #60 applic Midodrine [ProAmatine] 5 mg PO TID #90 tablet Albuterol Nebulized [Ventolin Nebulized] 2.5 mg INHALATION RT-Q8H PRN PRN Reason: Shortness Of Breath Fluticasone/Vilanterol [Breo Ellipta 100-25 Mcg Inhaler] 1 puff INHALATION RT -DAILY Dimethicone/Zinc Oxide [Inzo Zinc Oxide Barrier Cream] 1 applic TOPICAL BID Changed HYDROcodone/APAP 5-325MG [[place] 5-325] 1 tab PO QID PRN #30 tab PRN Reason: Pain Discharge Medication List PARoxetine HCL 30 mg PO HS 07/02/14 [History] OXcarbazepine [Trileptal] 150 mg PO HS 11/04/14 [History] Melatonin 3 mg PO HS 03/05/16 [History] Atorvastatin Calcium [Lipitor] 20 mg PO DAILY@1700 06/13/17 [History] Calcium Polycarbophil [Fibercon] 1,250 mg PO DAILY 06/13/17 [History] Ferrous Sulfate [Iron (65 MG Elemental)] 325 mg PO DAILY 06/13/17 [History] Furosemide [Lasix] 40 mg PO DAILY@0600 06/13/17 [History] Levothyroxine Sodium [Synthroid] 100 mcg PO DAILY@0600 06/13/17 [History] Lurasidone HCl [Latuda] 20 mg PO DAILY 06/13/17 [History] Magnesium Oxide [Mag-Ox] 400 mg PO DAILY 06/13/17 [History] Montelukast [Singulair] 10 mg PO HS 06/13/17 [History] Pantoprazole Sodium [Protonix] 40 mg PO DAILY 06/13/17 [History] Potassium Chloride [Klor-Con 10] 10 meq PO DAILY 06/13/17 [History] Tiotropium [place] [Spiriva] 1 cap INHALATION RT-DAILY 06/14/17 [History] Rivaroxaban [Xarelto] 15 mg PO W/SUPPER #30 tab 06/16/17 [Rx] Nitroglycerin Sl Tabs [Nitrostat] 0.4 mg SUBLINGUAL Q5M PRN tab 12/01/17 [Rx] Polyethylene Glycol 3350 [Miralax] 17 gm PO HS powd.pack 12/01/17 [Rx] Amiodarone [Cordarone] 200 mg PO DAILY tab 12/10/17 [Rx] Lactose-Reduced Food [Ensure Plus] 240 ml PO BID@0900,1700 12/16/17 [History] Multivitamins, Thera [Multivitamin (formulary)] 1 tab PO DAILY 12/16/17 [History ] Docusate [Colace] 100 mg PO BID@0800,1700 PRN #0 12/17/17 [Rx] Metoprolol Tartrate [Lopressor] 12.5 mg PO BID #60 tab 12/27/17 [Rx] Nystatin 100,000 Unit/gm Powd [Mycostatin Powder] 1 applic TOPICAL BID #60 applic 12/27/17 [Rx] Midodrine [ProAmatine] 5 mg PO TID #90 tablet 12/28/17 [Rx] Albuterol Nebulized [Ventolin Nebulized] 2.5 mg INHALATION RT-Q8H PRN 01/09/18 [ History] Dimethicone/Zinc Oxide [Inzo Zinc Oxide Barrier Cream] 1 applic TOPICAL BID [History] Fluticasone/Vilanterol [Breo Ellipta 100-25 Mcg Inhaler] 1 puff INHALATION RT- DAILY 01/09/18 [History] HYDROcodone/APAP 5-325MG [[place] 5-325] 1 tab PO QID PRN #30 tab 01/14/18 [Rx] Follow up Appointment(s)/Referral(s): Connor Bernal MD [STAFF PHYSICIAN] - 3 Weeks [facility] Visiting Nurse, [NON-STAFF] - As Needed Florinda Hutchinson DO [Doctor of Osteopathic Medicine] - 1 Week Pam Tamayo MD [STAFF PHYSICIAN] - 3 Days Discharge Disposition: TRANSFER TO SNF/ECF
[2018-01-14 15:14] VITALS: BP 83/51; PULSE 68; RESP 16; TEMP 97.6
== END 2018-01-14 16:00 | DRG 190 ==
LOC: EC 22:16 → 6SEL 01-09 02:58 → 5MS5E 01-12 15:20
PROVIDERS: ADMIT Internal Medicine; ATTEND Internal Medicine
DX: J44.1 Chronic obstructive pulmonary disease with (acute) exacerbation (principal); J96.21 Acute and chronic respiratory failure with hypoxia; I69.951 Hemiplegia and hemiparesis following unspecified cerebrovascular disease affecting right dominant side; N39.0 Urinary tract infection, site not specified; I97.630 Postprocedural hematoma of a circulatory system organ or structure following a cardiac catheterization; I48.0 Paroxysmal atrial fibrillation; J84.10 Pulmonary fibrosis, unspecified; G25.81 Restless legs syndrome; F01.50 Vascular dementia, unspecified severity, without behavioral disturbance, psychotic disturbance, mood disturbance, and anxiety; K21.9 Gastro-esophageal reflux disease without esophagitis; D86.9 Sarcoidosis, unspecified; G50.0 Trigeminal neuralgia; R40.2362 Coma scale, best motor response, obeys commands, at arrival to emergency department; R40.2142 Coma scale, eyes open, spontaneous, at arrival to emergency department; R40.2252 Coma scale, best verbal response, oriented, at arrival to emergency department; I45.10 Unspecified right bundle-branch block; E78.5 Hyperlipidemia, unspecified; E03.9 Hypothyroidism, unspecified; H52.201 Unspecified astigmatism, right eye; I10 Essential (primary) hypertension; K58.2 Mixed irritable bowel syndrome; I25.10 Atherosclerotic heart disease of native coronary artery without angina pectoris; I25.2 Old myocardial infarction; M19.91 Primary osteoarthritis, unspecified site; R07.89 Other chest pain; M54.9 Dorsalgia, unspecified; M79.606 Pain in leg, unspecified; R59.0 Localized enlarged lymph nodes; R91.1 Solitary pulmonary nodule; R25.1 Tremor, unspecified; G47.33 Obstructive sleep apnea (adult) (pediatric); Z99.81 Dependence on supplemental oxygen; Z79.890 Hormone replacement therapy; Z79.01 Long term (current) use of anticoagulants; Z79.51 Long term (current) use of inhaled steroids; Z79.899 Other long term (current) drug therapy; Z85.42 Personal history of malignant neoplasm of other parts of uterus; Z85.528 Personal history of other malignant neoplasm of kidney; Z90.710 Acquired absence of both cervix and uterus; Z90.49 Acquired absence of other specified parts of digestive tract; Z95.5 Presence of coronary angioplasty implant and graft; Z95.828 Presence of other vascular implants and grafts; Z90.5 Acquired absence of kidney; Z87.891 Personal history of nicotine dependence; Z86.79 Personal history of other diseases of the circulatory system; Z90.6 Acquired absence of other parts of urinary tract; Z88.0 Allergy status to penicillin; Z88.8 Allergy status to other drugs, medicaments and biological substances; Z91.040 Latex allergy status; Z82.5 Family history of asthma and other chronic lower respiratory diseases; Z82.49 Family history of ischemic heart disease and other diseases of the circulatory system; Z83.49 Family history of other endocrine, nutritional and metabolic diseases
CPT/HCPCS: 36415; 71046; 71275; 80053; 80061; 81001; 82164; 82550; 82553; 83605; 83735; 84484; 85025; 85379; 85610; 85730; 87040; 87086; 93005; 93975; 94640; 96361; 96374; 96375; 99285

== ENCOUNTER → 2018-03-03 | Outpatient (CLI) | payer MEDICARE, OTHER ==
--- NOTE | 2018-03-04 09:20 | CT ---
EXAMINATION TYPE: CT lumbar spine wo con DATE OF EXAM: 03/03/2018 COMPARISON: None HISTORY: Chronic low back pain. CT DLP: 596.[address] of the lumbar spine was performed. Bone and soft tissue window settings are submitted as well as coronal and sagittal reconstructions. L1-L2: Normal disc space height. No disc herniation protrusion or central stenosis. No facet joint arthropathy. No evidence for foraminal encroachment. L2-L3: Mild disc desiccation. Mild circumferential disc bulge. Minimal effacement ventral thecal sac. No herniation protrusion or central stenosis. L3-L4: Moderate disc space narrowing. Circumferential disc bulge with effacement of the ventral theca l sac resulting in mild central stenosis. Mild bilateral foraminal encroachment. L4-L5: Moderate degenerative disc space narrowing. Moderate to severe circumferential disc bulge with moderate to severe central stenosis. Bilateral foraminal encroachment left greater than right. Hyper trophy of the ligamentum flavum and facet joint arthropathy. L5-S1: Mild disc desiccation. Mild circumferential disc bulge. Minimal effacement ventral thecal sac. No herniation protrusion or central stenosis. No paraspinal masses are identified. Lumbar segments are free if fracture. IMPRESSION: 1. Generative disc disease as discussed. 2. Central stenosis at L3-4 and L4-5 as noted above
== END | disposition home or self-care (01) ==
LOC: RADCTMAIN 18:29
PROVIDERS: ATTEND Physical Medicine & Rehabilitation
DX: M48.062 Spinal stenosis, lumbar region with neurogenic claudication (principal); M51.16 Intervertebral disc disorders with radiculopathy, lumbar region
CPT/HCPCS: 72131

== ENCOUNTER 2018-03-15 12:43 | Inpatient (IN) | payer MEDICARE, OTHER ==
[2018-03-15] MEDS ORDERED: ASPIRIN 81 MG PO STA (12:46)
[2018-03-15] MEDS ORDERED: NITROGLYCERIN OINT 1 INCH/GM PACKET TOPICAL STA (12:46)
--- NOTE | 2018-03-15 12:49 | ED ---
General Adult HPI - General Stated complaint: chest pain Time Seen by Provider: 03/15/18 12:43 Source: RN notes reviewed - History of Present Illness Initial comments: This is a 67-year-old female presents emergency Department complaining of chest pain. Patient was post to have an epidural shot today and started having chest pain before the procedure patient received [address] and aspirin. Patient also got some labetalol prior to leaving the facility because her blood pressure systolically was over 180. Patient states the nitroglycerin significantly improved her pain though she still has a little residual pain. Patient also states she is short of breath with these episodes. Patient states this chest pain is reminiscent of the chest pain she had when she had a heart attack. Patient states she does have 4 stents. Patient also has high cholesterol and high blood pressure but denies any diabetes. Patient quit smoking in 2008. Patient denies abdominal pain patient denies nausea vomiting diarrhea. Patient denies lightheadedness or dizziness. - Related Data Home Medications Medication Instructions Recorded Confirmed PARoxetine HCL 30 mg PO HS 07/02/14 03/15/18 OXcarbazepine [Trileptal] 150 mg PO HS 11/04/14 03/15/18 Melatonin 3 mg PO HS 03/05/16 03/15/18 Atorvastatin Calcium [Lipitor] 20 mg PO HS 06/13/17 03/15/18 Calcium Polycarbophil [Fibercon] 1,250 mg PO DAILY 06/13/17 03/15/18 Ferrous Sulfate [Iron (65 MG 325 mg PO DAILY 06/13/17 03/15/18 Elemental)] Levothyroxine Sodium [Synthroid] 100 mcg PO DAILY@0600 06/13/17 03/15/18 Lurasidone HCl [Latuda] 20 mg PO DAILY 06/13/17 03/15/18 Montelukast [Singulair] 10 mg PO HS 06/13/17 03/15/18 Pantoprazole Sodium [Protonix] 40 mg PO DAILY 06/13/17 03/15/18 Potassium Chloride [Klor-Con 10] 10 meq PO DAILY 06/13/17 03/15/18 Fluticasone/Vilanterol [Breo 1 puff INHALATION RT-DAILY 01/09/18 03/15/18 Ellipta 100-25 Mcg Inhaler] Amiodarone [Cordarone] 100 mg PO DAILY 03/15/18 03/15/18 Metoprolol Tartrate [Lopressor] 25 mg PO BID 03/15/18 03/15/18 Omeprazole [PriLOSEC] 20 mg PO DAILY 03/15/18 03/15/18 Previous Rx's Medication Instructions Recorded Rivaroxaban [Xarelto] 15 mg PO W/SUPPER #30 tab 06/16/17 Nitroglycerin Sl Tabs [Nitrostat] 0.4 mg SUBLINGUAL Q5M PRN tab 12/01/17 Midodrine [ProAmatine] 5 mg PO TID #90 tablet 12/28/17 Allergies Allergy/AdvReac Type Severity Reaction Status Date / Time albuterol Allergy Rash/Hives Verified 03/15/18 14:17 latex Allergy Rash/Hives Verified 03/15/18 14:17 Penicillins Allergy Unknown Verified 03/15/18 14:17 Childhood Review of Systems ROS Statement: Those systems with pertinent positive or pertinent negative responses have been documented in the HPI. ROS Other: All systems not noted in ROS Statement are negative. Past Medical History Past Medical History: Atrial Fibrillation, Asthma, Coronary Artery Disease (CAD) , Cancer, COPD, CVA/TIA, Eye Disorder, GERD/Reflux, Hyperlipidemia, Hypertension , Memory Impairment, Myocardial Infarction ([place]), Osteoarthritis (OA), Respiratory Disorder, Sleep Apnea/CPAP/BIPAP, Thyroid Disorder, Vascular Disorder Additional Past Medical History / Comment(s): febrile, recent UTI, hypotensive. Other hx: Home O2 prn but ATC lately, CVA x 3 with R arm and R leg weakness , vascular dementia, R trigeminal neuralgia, R eye astigmatism, occluded JOSE ALEJANDRO, PVD, past htn but b/ps running low now, IBS, diarrhea/constipation, chronic abdominal pain, chronic back pain, migraines-none recently, one hip higher, RLS , tremors, CHANDU without device (unable to tolerate), UTIs, hypothyroid, nasopharyngeal inflammatory mass, TMJ yrs ago, R kidney cancer and uterine cancer with surgeries. Last Myocardial Infarction Date:: 11/03/14 History of Any Multi-Drug Resistant Organisms: None Reported Date of last positivie culture/infection: None MDRO Source:: None Past Surgical History: Adenoidectomy, Bladder Surgery, Cholecystectomy, Ear Surgery, Heart Catheterization With Stent, Hysterectomy, Orthopedic Surgery, Tonsillectomy Additional Past Surgical History / Comment(s): 11/28/14 PTCA with stents, left CAROTID ENDARTERECTOMY, MULTIPLE BILATERAL STENTS IN LOWER EXTREMITIES, R elbow surgery as a child, R ear surgery for blockage, bilateral ankle arthroscopies, bilateral knee arthroscopies, deviated septal surgery, L great toe pinned, colonoscopies/benign polypectomy, R nephrectomy and partial bladder removal, skin lesion from nose. Past Anesthesia/Blood Transfusion Reactions: Motion Sickness Date of Last Stent Placement:: 10/2014 Past Psychological History: Bipolar Smoking Status: Former smoker Past Alcohol Use History: None Reported Past Drug Use History: None Reported - Past Family History Mother Family Medical History: COPD Additional Family Medical History / Comment(s): Mother is . She from respiratory failure. Father Family Medical History: Coronary Artery Disease (CAD), Myocardial Infarction ([place] ) Additional Family Medical History / Comment(s): Father had gout General Exam - General Exam Comments Initial Comments: GENERAL: Patient is well-developed and well-nourished. Patient is nontoxic and well- hydrated and is in mild distress. ENT: Neck is soft and supple. No significant lymphadenopathy is noted. Oropharynx is clear. Moist mucous membranes. Neck has full range of motion without eliciting any pain. EYES: The sclera were anicteric and conjunctiva were pink and moist. Extraocular movements were intact and pupils were equal round and reactive to light. Eyelids were unremarkable. PULMONARY: Unlabored respirations. Good breath sounds bilaterally. No audible rales rhonchi or wheezing was noted. CARDIOVASCULAR: There is a regular rate and rhythm without any murmurs gallops or rubs. ABDOMEN: Soft and nontender with normal bowel sounds. No palpable organomegaly was noted. There is no palpable pulsatile mass. SKIN: Skin is clear with no lesions or rashes and otherwise unremarkable. NEUROLOGIC: Patient is alert and oriented x3. Cranial nerves II through XII are grossly intact. Motor and sensory are also intact. Normal speech, volume and content. Symmetrical smile. MUSCULOSKELETAL: Normal extremities with adequate strength and full range of motion. No lower extremity swelling or edema. No calf tenderness. LYMPHATICS: No significant lymphadenopathy is noted PSYCHIATRIC: Normal psychiatric evaluation. Normal interpersonal interactions appears functionally intact in deals appropriately with others. Course Vital Signs 03/15/18 03/15/18 03/15/18 12:45 12:52 13:04 Temperature 97.2 F L Pulse Rate 64 Pulse Rate [ 68 Branch Associate ] Respiratory 22 22 Rate Blood Pressure 106/59 O2 Sat by Pulse 86 L Oximetry 03/15/18 03/15/18 13:25 14:00 Temperature 97.3 F L Pulse Rate 68 64 Pulse Rate [ Branch Associate ] Respiratory 22 20 Rate Blood Pressure 110/71 142/95 O2 Sat by Pulse 91 L 89 L Oximetry Medical Decision Making - Medical Decision Making EKG shows sinus rhythm with occasional PAC at 70 bpm NC interval is on a 54 QRS is under 22 QT interval is 482 QTC is 520. Patient has a right bundle branch block - Lab Data Result diagrams: 03/15/18 12:50 03/15/18 12:50 Lab Results 03/15/18 03/15/18 03/15/18 Range/Units 12:50 12:50 12:50 WBC 11.3 H (3.8-10.6) k/uL RBC 5.16 (3.80-5.40) m/uL Hgb 13.3 (11.4-16.0) gm/dL Hct 43.1 (34.0-46.0) % MCV 83.5 (80.0-100.0) fL MCH 25.8 (25.0-35.0) pg MCHC 30.9 L (31.0-37.0) g/dL RDW 17.5 H (11.5-15.5) % Plt Count 314 (150-450) k/uL Neutrophils % 69 % Lymphocytes % 22 % Monocytes % 6 % Eosinophils % 2 % Basophils % 0 % Neutrophils # 7.8 H (1.3-7.7) k/uL Lymphocytes # 2.5 (1.0-4.8) k/uL Monocytes # 0.6 (0-1.0) k/uL Eosinophils # 0.2 (0-0.7) k/uL Basophils # 0.0 (0-0.2) k/uL Hypochromasia Slight Anisocytosis Slight PT (9.0-12.0) sec INR (<1.2) APTT (22.0-30.0) sec Sodium 141 (137-145) mmol/L Potassium 4.6 (3.5-5.1) mmol/L Chloride 109 H (98-107) mmol/L Carbon Dioxide 20 L (22-30) mmol/L Anion Gap 12 mmol/L BUN 17 (7-17) mg/dL Creatinine 1.02 (0.52-1.04) mg/dL Est GFR (CKD-EPI)AfAm 67 (>60 ml/min/1.73 sqM) Est GFR (CKD-EPI)NonAf 58 (>60 ml/min/1.73 sqM) Glucose 95 (74-99) mg/dL Calcium 9.7 (8.4-10.2) mg/dL Magnesium 1.8 (1.6-2.3) mg/dL Total Bilirubin 0.5 (0.2-1.3) mg/dL AST 23 (14-36) U/L ALT 19 (9-52) U/L Alkaline Phosphatase 84 (38-126) U/L Total Creatine Kinase 23 L (30-135) U/L CK-MB (CK-2) 0.5 (0.0-2.4) ng/mL CK-MB (CK-2) Rel Index 2.2 Troponin I <0.012 (0.000-0.034) ng/mL Total Protein 6.4 (6.3-8.2) g/dL Albumin 4.0 (3.5-5.0) g/dL 03/15/18 Range/Units 12:50 WBC (3.8-10.6) k/uL RBC (3.80-5.40) m/uL Hgb (11.4-16.0) gm/dL Hct (34.0-46.0) % MCV (80.0-100.0) fL MCH (25.0-35.0) pg MCHC (31.0-37.0) g/dL RDW (11.5-15.5) % Plt Count (150-450) k/uL Neutrophils % % Lymphocytes % % Monocytes % % Eosinophils % % Basophils % % Neutrophils # (1.3-7.7) k/uL Lymphocytes # (1.0-4.8) k/uL Monocytes # (0-1.0) k/uL Eosinophils # (0-0.7) k/uL Basophils # (0-0.2) k/uL Hypochromasia Anisocytosis PT 10.5 (9.0-12.0) sec INR 1.1 (<1.2) APTT 22.7 (22.0-30.0) sec Sodium (137-145) mmol/L Potassium (3.5-5.1) mmol/L Chloride (98-107) mmol/L Carbon Dioxide (22-30) mmol/L Anion Gap mmol/L BUN (7-17) mg/dL Creatinine (0.52-1.04) mg/dL Est GFR (CKD-EPI)AfAm (>60 ml/min/1.73 sqM) Est GFR (CKD-EPI)NonAf (>60 ml/min/1.73 sqM) Glucose (74-99) mg/dL Calcium (8.4-10.2) mg/dL Magnesium (1.6-2.3) mg/dL Total Bilirubin (0.2-1.3) mg/dL AST (14-36) U/L ALT (9-52) U/L Alkaline Phosphatase (38-126) U/L Total Creatine Kinase (30-135) U/L CK-MB (CK-2) (0.0-2.4) ng/mL CK-MB (CK-2) Rel Index Troponin I (0.000-0.034) ng/mL Total Protein (6.3-8.2) g/dL Albumin (3.5-5.0) g/dL Disposition Clinical Impression: Chest pain Disposition: ADMITTED IP TO THIS HOSP Referrals: Lolita Fraga DO [Primary Care Provider] - 1-2 days Time of Disposition: 14:35
[2018-03-15 13:14] LABS: Calcium 9.7 mg/dL (8.4-10.2); Magnesium 1.8 mg/dL (1.6-2.3); Potassium 4.6 mmol/L (3.5-5.1); Total Bilirubin 0.5 mg/dL (0.2-1.3); Total Protein 6.4 g/dL (6.3-8.2)
[2018-03-15 13:17] LABS: INR 1.1 (<1.2); Partial Thromboplastin Time 22.7 sec (22.0-30.0); Prothrombin Time 10.5 sec (9.0-12.0)
[2018-03-15 13:26] LABS: Anisocytosis Slight; Basophils % (A) 0 %; Creatine Kinase 23 U/L (30-135); Eosinophils # (A) 0.2 k/uL (0-0.7); Eosinophils % (A) 2 %; HCT 43.1 % (34.0-46.0); HGB 13.3 gm/dL (11.4-16.0); Hypochromasia Slight; Lymphocytes # (A) 2.5 k/uL (1.0-4.8); Lymphocytes % (A) 22 %; MCH 25.8 pg (25.0-35.0); MCHC 30.9 g/dL (31.0-37.0); MCV 83.5 fL (80.0-100.0); Mean Platelet Volume 6.8; Monocytes # (A) 0.6 k/uL (0-1.0); Monocytes % (A) 6 %; Neutrophils # (A) 7.8 k/uL (1.3-7.7); Neutrophils % (A) 69 %; Platelet Count 314 k/uL (150-450); RBC 5.16 m/uL (3.80-5.40); RDW 17.5 % (11.5-15.5); WBC 11.3 k/uL (3.8-10.6)
[2018-03-15 13:38] LABS: Creatine Kinase MB 0.5 ng/mL (0.0-2.4); Troponin I <0.012 ng/mL (0.000-0.034)
--- NOTE | 2018-03-15 13:51 | XR ---
EXAMINATION TYPE: XR chest 2V DATE OF EXAM: 03/15/2018 COMPARISON: 01/13/2018 HISTORY: Chest pain TECHNIQUE: Frontal and lateral views of the chest are obtained. FINDINGS: There is no focal air space opacity, pleural effusion, or pneumothorax seen. Chronic inte rstitial prominence is noted. The cardiac silhouette size is within normal limits. The osseous stru ctures are intact. There is moderate acromioclavicular arthropathy bilaterally. The known right upper lobe spiculated density is not as well visualized on today's examination however was seen on the matt or CT chest dated 01/09/2018. IMPRESSION: No acute cardiopulmonary process. Known underlying pulmonary edema and pulmonary fibrosi s with decreased conspicuity the known right upper lobe pulmonary nodule for which PET CT was recomme nded on prior exams.
[2018-03-15] MEDS ORDERED: MORPHINE SULFATE 2 MG/ML SYRINGE IVP STA (14:10)
[2018-03-15] MEDS ORDERED: ONDANSETRON 4 MG/2 ML VIAL IVP STA (14:13)
--- NOTE | 2018-03-15 15:41 | P.HPIM ---
History of Present Illness H&P Date: 03/15/18 Chief Complaint: Chest pain This is a 67-year-old female, patient of [facility]. Patient seen and evaluated in the ER. Patient has had previous history of myocardial infarction, coronary artery disease with 4 cardiac stents, paroxysmal atrial fibrillation, hypertension hyperlipidemia and former smoker. She also has a history of COPD hypothyroidism CVA vascular dementia, trigeminal neuralgia, obstructive sleep apnea, bowel syndrome, peripheral arterial disease with stents in the lower extremities and bipolar. Patient has a history of degenerative disc disease in the spine and was scheduled to have a epidural completed with pain management in the outpatient setting. Daughter was present with patient. Patient was in the room and getting undressed and ready for the procedure she reports feeling very anxious and becoming short of breath and having chest pain across the chest. Saw blood pressure was elevated at 180. At the pain management office she received 3 nitro and aspirin and a dose of labetalol. This helped relieve patient's chest pain. She was then brought into the emergency room for further evaluation in regards to her chest pain. EKG showing sinus rhythm with PACs and right bundle audra block. First troponin was negative. Patient's last heart catheterization was in December 2017 which showed patent stent in the proximal right coronary artery, mild disease involving the ostial left main, mild disease involving the left circumflex and patent stent in the mid LAD. At that time cardiology recommended maximize medical treatment. Chest x-ray shows no acute cardiopulmonary disease. Does reveal known underlying pulmonary edema on pulmonary fibrosis and a known right upper lobe pulmonary nodule. Patient's daughter reports that her mother is unable to participate in some of the day programs that she used to due to her pain. She will prefer if patient could receive the epidural injection for her back pain before restarting the Xarelto. Patient is also reporting during this chest pain episode that she had right-sided numbness which she's had on previous strokes. She has been off of her Xarelto for 3 days for the spinal epidural procedure. Patient admits to some nausea. Denies any vomiting bowel movement changes or urinary symptoms. Denies any cough fever or chills or sweats. Denies any facial droop or slurred speech. She also reports having some right lower abdominal pain. Daughter reports this is consistent with patient's history of IBS. Patient also has a history of chronic hypoxic respiratory failure and has been on 3 L oxygen at home. Cardiology and pain service has been consulted. Patient daughter reports that her mother had been on Ativan and [place] previously after her stay at [facility] in December. However, her PCP will not refill his medications and wanted her mother to stop taking them. She has only been using Tylenol for pain control. Review of Systems Please refer to HPI otherwise unremarkable Past Medical History Past Medical History: Atrial Fibrillation, Asthma, Coronary Artery Disease (CAD) , Cancer, COPD, CVA/TIA, Eye Disorder, GERD/Reflux, Hyperlipidemia, Hypertension , Memory Impairment, Myocardial Infarction ([place]), Osteoarthritis (OA), Respiratory Disorder, Sleep Apnea/CPAP/BIPAP, Thyroid Disorder, Vascular Disorder Additional Past Medical History / Comment(s): febrile, recent UTI, hypotensive. Other hx: Home O2 prn but ATC lately, CVA x 3 with R arm and R leg weakness , vascular dementia, R trigeminal neuralgia, R eye astigmatism, occluded JOSE ALEJANDRO, PVD, past htn but b/ps running low now, IBS, diarrhea/constipation, chronic abdominal pain, chronic back pain, migraines-none recently, one hip higher, RLS , tremors, CHANDU without device (unable to tolerate), UTIs, hypothyroid, nasopharyngeal inflammatory mass, TMJ yrs ago, R kidney cancer and uterine cancer with surgeries. Last Myocardial Infarction Date:: 11/03/14 History of Any Multi-Drug Resistant Organisms: None Reported Date of last positivie culture/infection: None MDRO Source:: None Past Surgical History: Adenoidectomy, Bladder Surgery, Cholecystectomy, Ear Surgery, Heart Catheterization With Stent, Hysterectomy, Orthopedic Surgery, Tonsillectomy Additional Past Surgical History / Comment(s): 11/28/14 PTCA with stents, left CAROTID ENDARTERECTOMY, MULTIPLE BILATERAL STENTS IN LOWER EXTREMITIES, R elbow surgery as a child, R ear surgery for blockage, bilateral ankle arthroscopies, bilateral knee arthroscopies, deviated septal surgery, L great toe pinned, colonoscopies/benign polypectomy, R nephrectomy and partial bladder removal, skin lesion from nose. Past Anesthesia/Blood Transfusion Reactions: Motion Sickness Date of Last Stent Placement:: 10/2014 Past Psychological History: Bipolar Smoking Status: Former smoker Past Alcohol Use History: None Reported Past Drug Use History: None Reported - Past Family History Mother Family Medical History: COPD Additional Family Medical History / Comment(s): Mother is . She from respiratory failure. Father Family Medical History: Coronary Artery Disease (CAD), Myocardial Infarction ([place] ) Additional Family Medical History / Comment(s): Father had gout Medications and Allergies Home Medications Medication Instructions Recorded Confirmed Type PARoxetine HCL 30 mg PO HS 07/02/14 03/15/18 History OXcarbazepine [Trileptal] 150 mg PO HS 11/04/14 03/15/18 History Melatonin 3 mg PO HS 03/05/16 03/15/18 History Atorvastatin Calcium [Lipitor] 20 mg PO HS 06/13/17 03/15/18 History Calcium Polycarbophil [Fibercon] 1,250 mg PO DAILY 06/13/17 03/15/18 History Ferrous Sulfate [Iron (65 MG 325 mg PO DAILY 06/13/17 03/15/18 History Elemental)] Levothyroxine Sodium [Synthroid] 100 mcg PO DAILY@0600 06/13/17 03/15/18 History Lurasidone HCl [Latuda] 20 mg PO DAILY 06/13/17 03/15/18 History Montelukast [Singulair] 10 mg PO HS 06/13/17 03/15/18 History Pantoprazole Sodium [Protonix] 40 mg PO DAILY 06/13/17 03/15/18 History Potassium Chloride [Klor-Con 10] 10 meq PO DAILY 06/13/17 03/15/18 History Rivaroxaban [Xarelto] 15 mg PO W/SUPPER #30 tab 06/16/17 03/15/18 Rx Nitroglycerin Sl Tabs [Nitrostat] 0.4 mg SUBLINGUAL Q5M PRN tab 12/01/17 Rx Midodrine [ProAmatine] 5 mg PO TID #90 tablet 12/28/17 03/15/18 Rx Fluticasone/Vilanterol [Breo 1 puff INHALATION RT-DAILY 01/09/18 03/15/18 History Ellipta 100-25 Mcg Inhaler] Amiodarone [Cordarone] 100 mg PO DAILY 03/15/18 03/15/18 History Metoprolol Tartrate [Lopressor] 25 mg PO BID 03/15/18 03/15/18 History Omeprazole [PriLOSEC] 20 mg PO DAILY 03/15/18 03/15/18 History Allergies Allergy/AdvReac Type Severity Reaction Status Date / Time albuterol Allergy Rash/Hives Verified 03/15/18 14:17 latex Allergy Rash/Hives Verified 03/15/18 14:17 Penicillins Allergy Unknown Verified 03/15/18 14:17 Childhood Physical Exam Vitals: Vital Signs Temp Pulse Pulse Resp BP Pulse Ox 03/15/18 14:00 97.3 F L 64 20 142/95 89 L 03/15/18 13:25 68 22 110/71 91 L 03/15/18 13:04 68 22 03/15/18 12:52 97.2 F L 03/15/18 12:45 64 22 106/59 86 L Intake and Output 03/15/18 03/15/18 03/15/18 06:59 14:59 22:59 Other: Weight 71.214 kg Head normocephalic Neck supple Lungs clear to auscultation bilaterally no wheezing or crackles Heart regular rate and rhythm S1-S2, no rub or gallop. Tenderness with palpation of the chest wall which was reducible on her chest pain Abdomen is soft right lower quadrant tenderness nondistended positive bowel sounds no hepatosplenomegaly Extremities no edema Neuro alert and orientated to 3 Results CBC & Chem 7: 03/15/18 12:50 03/15/18 12:50 Labs: Abnormal Lab Results - Last 24 Hours (Table) 03/15/18 03/15/18 03/15/18 Range/Units 12:50 12:50 12:50 WBC 11.3 H (3.8-10.6) k/uL MCHC 30.9 L (31.0-37.0) g/dL RDW 17.5 H (11.5-15.5) % Neutrophils # 7.8 H (1.3-7.7) k/uL Chloride 109 H (98-107) mmol/L Carbon Dioxide 20 L (22-30) mmol/L Total Creatine Kinase 23 L (30-135) U/L Assessment and Plan Assessment: 1. Chest pain: Initial troponin negative. EKG sinus rhythm with PACs and right bundle audra block. Continue to monitor serial cardiac enzymes. Cardiology consulted. Continue with aspirin and Lipitor 2. Chronic lower back pain with degenerative disc disease. Patient scheduled for a spinal epidural injection today outpatient. Pain management will be consulted for possible spinal epidural injection completed inpatient before Xarelto is restarted. Xarelto currently on hold 3. Right-sided numbness during the chest pain episode. Patient has been off of Xarelto for [address] scan of the brain to rule out new stroke. 4. Right lower quadrant abdominal pain. Check abdominal ultrasound. Also check urinalysis with culture. Patient does have a history of irritable bowel syndrome. By has been having normal bowel movements 5. History of paroxysmal atrial fibrillation on amiodarone. Xarelto currently on hold for possible spinal epidural injection 6. Essential hypertension. Elevated blood pressure outpatient receiving extra labetalol. Patient usually has hypotension and is on midodrine 7. Right upper lobe pulmonary nodule and possible pulmonary fibrosis being followed outpatient with pulmonary service 8. Chronic hypoxic respiratory failure home O2 dependent usually uses 3 L of oxygen 9. History of COPD no evidence of exacerbation at this time 10. History of CVA 11. history of myocardial infarction and coronary artery disease with previous cardiac stents 12. History of bipolar continue Latuda and Trileptal 13. History of Renal cancer status post right nephrectomy GI prophylaxis Protonix and DVT prophylaxis SCDs. Xarelto on hold for possible spinal epidural injection Time with Patient: Greater than 30 (Greater than 60% of the total time spent in counseling and coordination of care.I performed an examination of the patient and discussed their management with the physician Packing And Stamping Machine Operator. I have reviewed the Physician Packing And Stamping Machine Operator's notes and agree with the documented findings and plan of care)
--- NOTE | 2018-03-15 17:44 | P.CON ---
Consult Note - . Consult date: 03/15/18 Assessment/Plan:: This is a 67-year-old female with chronic lower back pain with no precipitating events. The pain radiates down both legs to the feet with numbness and tingling in no radiculopathic distribution. She denies any urinary retention or incontinence. Her pain gets worse by any prolonged activity. The patient also wakes her up at night. She has been losing weight. The patient failed to respond to physical therapy previously. She was scheduled to have lumbar epidural steroid injection at an outpatient surgery center today however she started to feel chest pain and was sent to the ER to rule out any coronary event . Whether procedure obviously was canceled. The patient has been off his Xarelto for 3 days now in preparation for her procedure. Past Medical History Past Medical History: Atrial Fibrillation, Asthma, Coronary Artery Disease (CAD) , Cancer, COPD, CVA/TIA, Eye Disorder, GERD/Reflux, Hyperlipidemia, Hypertension , Memory Impairment, Myocardial Infarction (ND), Osteoarthritis (OA), Respiratory Disorder, Sleep Apnea/CPAP/BIPAP, Thyroid Disorder, Vascular Disorder Additional Past Medical History / Comment(s): febrile, recent UTI, hypotensive. Other hx: Home O2 prn but ATC lately, CVA x 3 with R arm and R leg weakness , vascular dementia, R trigeminal neuralgia, R eye astigmatism, occluded JOSE ALEJANDRO, PVD, past htn but b/ps running low now, IBS, diarrhea/constipation, chronic abdominal pain, chronic back pain, migraines-none recently, one hip higher, RLS , tremors, CHANDU without device (unable to tolerate), UTIs, hypothyroid, nasopharyngeal inflammatory mass, TMJ yrs ago, R kidney cancer and uterine cancer with surgeries. Last Myocardial Infarction Date:: 11/03/14 History of Any Multi-Drug Resistant Organisms: None Reported Date of last positivie culture/infection: None MDRO Source:: None Past Surgical History: Adenoidectomy, Bladder Surgery, Cholecystectomy, Ear Surgery, Heart Catheterization With Stent, Hysterectomy, Orthopedic Surgery, Tonsillectomy Additional Past Surgical History / Comment(s): 11/28/14 PTCA with stents, left CAROTID ENDARTERECTOMY, MULTIPLE BILATERAL STENTS IN LOWER EXTREMITIES, R elbow surgery as a child, R ear surgery for blockage, bilateral ankle arthroscopies, bilateral knee arthroscopies, deviated septal surgery, L great toe pinned, colonoscopies/benign polypectomy, R nephrectomy and partial bladder removal, skin lesion from nose. Past Anesthesia/Blood Transfusion Reactions: Motion Sickness Date of Last Stent Placement:: 10/2014 Past Psychological History: Bipolar Smoking Status: Former smoker Past Alcohol Use History: None Reported Past Drug Use History: None Reported - Past Family History Mother Family Medical History: COPD Additional Family Medical History / Comment(s): Mother is . She from respiratory failure. Father Family Medical History: Coronary Artery Disease (CAD), Myocardial Infarction (ND ) Additional Family Medical History / Comment(s): Father had gout Medications and Allergies Home Medications Medication Instructions Recorded Confirmed Type PARoxetine HCL 30 mg PO HS 07/02/14 03/15/18 History OXcarbazepine [Trileptal] 150 mg PO HS 11/04/14 03/15/18 History Melatonin 3 mg PO HS 03/05/16 03/15/18 History Atorvastatin Calcium [Lipitor] 20 mg PO HS 06/13/17 03/15/18 History Calcium Polycarbophil [Fibercon] 1,250 mg PO DAILY 06/13/17 03/15/18 History Ferrous Sulfate [Iron (65 MG 325 mg PO DAILY 06/13/17 03/15/18 History Elemental)] Levothyroxine Sodium [Synthroid] 100 mcg PO DAILY@0600 06/13/17 03/15/18 History Lurasidone HCl [Latuda] 20 mg PO DAILY 06/13/17 03/15/18 History Montelukast [Singulair] 10 mg PO HS 06/13/17 03/15/18 History Pantoprazole Sodium [Protonix] 40 mg PO DAILY 06/13/17 03/15/18 History Potassium Chloride [Klor-Con 10] 10 meq PO DAILY 06/13/17 03/15/18 History Rivaroxaban [Xarelto] 15 mg PO W/SUPPER #30 tab 06/16/17 03/15/18 Rx Nitroglycerin Sl Tabs [Nitrostat] 0.4 mg SUBLINGUAL Q5M PRN tab 12/01/17 Rx Midodrine [ProAmatine] 5 mg PO TID #90 tablet 12/28/17 03/15/18 Rx Fluticasone/Vilanterol [Breo 1 puff INHALATION RT-DAILY 01/09/18 03/15/18 History Ellipta 100-25 Mcg Inhaler] Amiodarone [Cordarone] 100 mg PO DAILY 03/15/18 03/15/18 History Metoprolol Tartrate [Lopressor] 25 mg PO BID 03/15/18 03/15/18 History Omeprazole [PriLOSEC] 20 mg PO DAILY 03/15/18 03/15/18 History Allergies Allergy/AdvReac Type Severity Reaction Status Date / Time albuterol Allergy Rash/Hives Verified 03/15/18 14:17 latex Allergy Rash/Hives Verified 03/15/18 14:17 Penicillins Allergy Unknown Verified 03/15/18 14:17 Childhood Physical Exam Vitals: Vital Signs Temp Pulse Pulse Resp BP Pulse Ox 03/15/18 14:00 97.3 F L 64 20 142/95 89 L 03/15/18 13:25 68 22 110/71 91 L 03/15/18 13:04 68 22 03/15/18 12:52 97.2 F L 03/15/18 12:45 64 22 106/59 86 L Intake and Output 03/15/18 03/15/18 03/15/18 06:59 14:59 22:59 Other: Weight 71.214 kg Patient is alert oriented 3 in no apparent distress She has decreased but symmetrical muscle strength in the lower extremities to 4 out of 5. Straight leg raising test was negative Amos's test is negative Internal and external rotation of the hip joints did not elicit any hip pain She has significant tenderness in the lumbar paravertebral area . Neck supple Lungs clear to auscultation bilaterally no wheezing or crackles Heart regular rate and rhythm S1-S2. Results CBC & Chem 7: 03/15/18 12:50 03/15/18 12:50 Labs: Abnormal Lab Results - Last 24 Hours (Table) 03/15/18 03/15/18 03/15/18 Range/Units 12:50 12:50 12:50 WBC 11.3 H (3.8-10.6) k/uL MCHC 30.9 L (31.0-37.0) g/dL RDW 17.5 H (11.5-15.5) % Neutrophils # 7.8 H (1.3-7.7) k/uL Chloride 109 H (98-107) mmol/L Carbon Dioxide 20 L (22-30) mmol/L Total Creatine Kinase 23 L (30-135) U/L Assessment and Plan Assessment: This is a 67-year-old female with a significant cardiac history, and lower back pain with radiation to both legs with numbness and tingling in no specific radiculopathic distribution. Lumbar degenerative disc disease Lumbar radiculopathy Coronary artery disease with stent placement Treatment with Xarelto History of CVA COPD on O2 nasal cannula Weight loss Plan: The patient has been off Xarelto for 3 days now. She might benefit from getting lumbar epidural steroid injection under fluoroscopic guidance. We will add her to our procedure schedule tomorrow. I spoke with the patient's nurse to make her nothing by mouth after midnight and to avoid any anticoagulants until we have this procedure done. The patient is to continue her current pain medications as ordered. The patient has history of severe weight loss recently, which should be addressed by her primary care physician as soon as possible. I thank you for the consultation.
--- NOTE | 2018-03-15 19:20 | CT ---
EXAMINATION TYPE: CT brain wo con DATE OF EXAM: 03/15/2018 COMPARISON: 06/13/2017 HISTORY: Right sided numbness. CT DLP: 924.6 mGycm Automated exposure control for dose reduction was used. FINDINGS: There is some cerebral cortical atrophy. There is no mass effect nor midline shift. There is no sign of intracranial hemorrhage. There is a 3 x 2 cm area of hypodensity in the white matter right frontal lobe. The calvarium is intact. IMPRESSION: RIGHT FRONTAL LOBE ENCEPHALOMALACIA WITHOUT CHANGE COMPARED TO OLD EXAM. NO ACUTE INTRACRANIAL ABNORM ALITY.
[2018-03-15 19:35] LABS: Creatine Kinase MB 0.6 ng/mL (0.0-2.4); Troponin I 0.031 ng/mL (0.000-0.034)
[2018-03-15] MEDS: NITROGLYCERIN OINT 1 INCH/GM PACKET TOPICAL SCH ×2 (20:12→23:47)
[2018-03-15] MEDS: MIDODRINE 5 MG TAB PO SCH (20:14)
[2018-03-15] MEDS: METOPROLOL TARTRATE 25 MG TAB PO SCH (20:14)
[2018-03-15] MEDS: ATORVASTATIN 20 MG TAB PO SCH (20:14)
[2018-03-15] MEDS: MONTELUKAST 10 MG TAB PO SCH (20:14)
[2018-03-15] MEDS: OXcarbazepine 150 MG TAB PO SCH (20:14)
[2018-03-15] MEDS: MELATONIN 3 MG TABLET PO SCH (20:14)
[2018-03-15] MEDS: PARoxetine 10 MG TAB PO SCH (20:15)
[2018-03-15] MEDS: MORPHINE SULFATE 2 MG/ML SYRINGE IVP PRN (21:09)
[2018-03-15] MEDS: SODIUM CHLORIDE 0.9% 1,000 ML IV SCH (21:09)
[2018-03-16] MEDS: MORPHINE SULFATE 2 MG/ML SYRINGE IVP PRN ×2 (00:43→05:07)
[2018-03-16 01:17] LABS: Creatine Kinase MB 0.6 ng/mL (0.0-2.4); Troponin I 0.025 ng/mL (0.000-0.034)
[2018-03-16 06:06] LABS: Anisocytosis Slight; Basophils % (A) 0 %; Eosinophils # (A) 0.3 k/uL (0-0.7); Eosinophils % (A) 3 %; HGB 12.4 gm/dL (11.4-16.0); Hypochromasia Marked; Lymphocytes # (A) 1.8 k/uL (1.0-4.8); Lymphocytes % (A) 18 %; MCH 25.3 pg (25.0-35.0); MCHC 29.5 g/dL (31.0-37.0); MCV 85.7 fL (80.0-100.0); Mean Platelet Volume 6.5; Monocytes # (A) 0.7 k/uL (0-1.0); Monocytes % (A) 7 %; Neutrophils # (A) 6.7 k/uL (1.3-7.7); Neutrophils % (A) 70 %; Platelet Count 283 k/uL (150-450); RDW 17.1 % (11.5-15.5); WBC 9.7 k/uL (3.8-10.6)
[2018-03-16 07:02] LABS: Albumin 3.6 g/dL (3.5-5.0); Calcium 9.3 mg/dL (8.4-10.2); Potassium 4.9 mmol/L (3.5-5.1); Total Bilirubin 0.2 mg/dL (0.2-1.3)
--- NOTE | 2018-03-16 08:46 | P.CRDCN ---
History of Present Illness Consult date: 03/16/18 Requesting physician: Abelardo Kelly Consult reason: chest pain Chief complaint: Chest pain History of present illness: This is a 67-year-old female who follows with Dr. Torres in the office. She has past medical history significant for coronary artery disease and prior RCA and LAD stenting, most recent cardiac catheterization was performed in December of this year which revealed a patent stent in the proximal RCA , mild disease involving the ostial left main appeared to be in the range of 30% , mild disease in the circumflex, mid stent in the mid LAD patent with mild disease involving the ostial LAD medical therapy advised at that time. Patient also has history of paroxysmal atrial fibrillation for which she takes xarelto, COPD with home O2 use, hypertension, hyperlipidemia, mild memory impairment, sleep apnea, prior history of stroke, PAD, chronic back pain, GERD, sleep apnea , hypothyroidism. She presents to the hospital on this occasion with symptoms of chest pain which she states radiated across her chest and into her right arm. She states that she was nauseated, mildly short of breath and diaphoretic. Patient was in the hospital, scheduled to have an epidural injection, and prior to the procedure being initiated she developed this chest discomfort. Patient was given aspirin, and 3 sublingual nitroglycerin. She does state that the nitroglycerin relieved her symptoms. Patient was also very hypertensive at that time. Her xarelto has been on hold for 3 days to have this injection, he continues to be on hold at this time. Her EKG on arrival here showed normal sinus rhythm with a right bundle branch block pattern and nonspecific ST-T wave changes noted in the anterior leads which seemed to have resolved this morning. That scan of the brain was performed which revealed right frontal lobe encephalomalacia without change compared with prior. No acute change noted. The pressure on arrival here 106/59 heart rate in the 60s. Blood cell count 11.3 on admission, 9.7 this morning, hemoglobin 13.3, platelet count 314. Sodium 141, potassium 4.6, BUN 17, creatinine 1.0. BUN this morning 18 and creatinine 1.2. Potassium 4.9. Troponins 0.012, 0.031, 0.025. The time of my examination this morning, patient 's complaining of back discomfort, mild generalized abdominal discomfort and intermittent chest discomfort. Past Medical History Past Medical History: Atrial Fibrillation, Asthma, Coronary Artery Disease (CAD) , Cancer, COPD, CVA/TIA, Eye Disorder, GERD/Reflux, Hyperlipidemia, Hypertension , Memory Impairment, Myocardial Infarction (MA), Osteoarthritis (OA), Respiratory Disorder, Sleep Apnea/CPAP/BIPAP, Thyroid Disorder, Vascular Disorder Additional Past Medical History / Comment(s): febrile, recent UTI, hypotensive. Other hx: Home O2 prn but ATC lately, CVA x 3 with R arm and R leg weakness , vascular dementia, R trigeminal neuralgia, R eye astigmatism, occluded JOSE ALEJANDRO, PVD, past htn but b/ps running low now, IBS, diarrhea/constipation, chronic abdominal pain, chronic back pain, migraines-none recently, one hip higher, RLS , tremors, CHANDU without device (unable to tolerate), UTIs, hypothyroid, nasopharyngeal inflammatory mass, TMJ yrs ago, R kidney cancer and uterine cancer with surgeries. Last Myocardial Infarction Date:: 11/03/14 History of Any Multi-Drug Resistant Organisms: None Reported Date of last positivie culture/infection: None MDRO Source:: None Past Surgical History: Adenoidectomy, Bladder Surgery, Cholecystectomy, Ear Surgery, Heart Catheterization With Stent, Hysterectomy, Orthopedic Surgery, Tonsillectomy Additional Past Surgical History / Comment(s): 11/28/14 PTCA with stents, left CAROTID ENDARTERECTOMY, MULTIPLE BILATERAL STENTS IN LOWER EXTREMITIES, R elbow surgery as a child, R ear surgery for blockage, bilateral ankle arthroscopies, bilateral knee arthroscopies, deviated septal surgery, L great toe pinned, colonoscopies/benign polypectomy, R nephrectomy and partial bladder removal, skin lesion from nose. Past Anesthesia/Blood Transfusion Reactions: Motion Sickness Date of Last Stent Placement:: 10/2014 Smoking Status: Former smoker - Past Family History Mother Family Medical History: COPD Additional Family Medical History / Comment(s): Mother is . She from respiratory failure. Father Family Medical History: Coronary Artery Disease (CAD), Myocardial Infarction (MA ) Additional Family Medical History / Comment(s): Father had gout Medications and Allergies Home Medications Medication Instructions Recorded Confirmed Type PARoxetine HCL 30 mg PO HS 07/02/14 03/15/18 History OXcarbazepine [Trileptal] 150 mg PO HS 11/04/14 03/15/18 History Melatonin 3 mg PO HS 03/05/16 03/15/18 History Atorvastatin Calcium [Lipitor] 20 mg PO HS 06/13/17 03/15/18 History Calcium Polycarbophil [Fibercon] 1,250 mg PO DAILY 06/13/17 03/15/18 History Ferrous Sulfate [Iron (65 MG 325 mg PO DAILY 06/13/17 03/15/18 History Elemental)] Levothyroxine Sodium [Synthroid] 100 mcg PO DAILY@0600 06/13/17 03/15/18 History Lurasidone HCl [Latuda] 20 mg PO DAILY 06/13/17 03/15/18 History Montelukast [Singulair] 10 mg PO HS 06/13/17 03/15/18 History Pantoprazole Sodium [Protonix] 40 mg PO DAILY 06/13/17 03/15/18 History Potassium Chloride [Klor-Con 10] 10 meq PO DAILY 06/13/17 03/15/18 History Rivaroxaban [Xarelto] 15 mg PO W/SUPPER #30 tab 06/16/17 03/15/18 Rx Nitroglycerin Sl Tabs [Nitrostat] 0.4 mg SUBLINGUAL Q5M PRN tab 12/01/17 Rx Midodrine [ProAmatine] 5 mg PO TID #90 tablet 12/28/17 03/15/18 Rx Fluticasone/Vilanterol [Breo 1 puff INHALATION RT-DAILY 01/09/18 03/15/18 History Ellipta 100-25 Mcg Inhaler] Amiodarone [Cordarone] 100 mg PO DAILY 03/15/18 03/15/18 History Metoprolol Tartrate [Lopressor] 25 mg PO BID 03/15/18 03/15/18 History Omeprazole [PriLOSEC] 20 mg PO DAILY 03/15/18 03/15/18 History Allergies Allergy/AdvReac Type Severity Reaction Status Date / Time albuterol Allergy Rash/Hives Verified 03/15/18 14:17 latex Allergy Rash/Hives Verified 03/15/18 14:17 Penicillins Allergy Unknown Verified 03/15/18 14:17 Childhood Physical Exam Vitals: Vital Signs Temp Pulse Pulse Pulse Resp BP BP 03/16/18 05:02 60 18 03/16/18 04:00 59 L 18 03/16/18 03:51 97.0 F L 59 L 18 84/53 03/15/18 23:50 65 16 03/15/18 20:00 98.3 F 64 16 03/15/18 16:14 98.3 F 70 16 93/51 03/15/18 15:15 97.7 F 68 20 118/65 03/15/18 14:00 97.3 F L 64 20 142/95 03/15/18 13:25 68 22 110/71 03/15/18 13:04 68 22 03/15/18 12:52 97.2 F L 03/15/18 12:45 64 22 106/59 BP BP Pulse Ox 03/16/18 05:02 124/60 104/51 93 L 03/16/18 04:00 03/16/18 03:51 80/53 92 L 03/15/18 23:50 97/68 91 L 03/15/18 20:00 88/59 91 L 03/15/18 16:14 92 L 03/15/18 15:15 91 L 03/15/18 14:00 89 L 03/15/18 13:25 91 L 03/15/18 13:04 03/15/18 12:52 03/15/18 12:45 86 L Intake and Output 03/15/18 03/16/18 03/16/18 22:59 06:59 14:59 Intake Total 118 300 Output Total 0 Balance 118 300 Intake: Intake, IV Titration 300 Amount Sodium Chloride 0.9% 1, 300 000 ml @ 50 mls/hr IV . Q20H [facility] Rx#:[id number] Oral 118 Output: Urine 0 Other: Voiding Method Bedside Commode Bedside Commode # Voids 1 Weight 72.8 kg PHYSICAL EXAMINATION: GENERAL: 67-year-old frail female in no acute distress at the time of my examination HEENT: Head is atraumatic, normocephalic. Pupils equal, round. Sclera anicteric. Conjunctiva are clear. Mucous membranes of the mouth are moist. Neck is supple. There is no elevated jugular venous pressure. No carotid bruit is heard. HEART EXAMINATION: Heart S1, S2 normal. No murmur or gallop heard. CHEST EXAMINATION: Lungs are clear to auscultation and precussion. No chest wall tenderness is noted on palpation or with deep breathing. ABDOMEN: Soft, mild generalized tenderness . Bowel sounds are heard. No organomegaly noted]. EXTREMITIES:[ 1+ peripheral pulses with no evidence of peripheral edema and no calf tenderness noted]. NEUROLOGIC [patient is awake, alert and oriented ?-3.] . Results 03/16/18 05:27 03/16/18 05:27 Cardiac Enzymes 03/15/18 03/15/18 03/15/18 Range/Units 12:50 12:50 18:35 AST 23 (14-36) U/L CK-MB (CK-2) 0.5 0.6 (0.0-2.4) ng/mL Troponin I <0.012 0.031 (0.000-0.034) ng/mL 03/16/18 03/16/18 Range/Units 00:23 05:27 AST 18 (14-36) U/L CK-MB (CK-2) 0.6 (0.0-2.4) ng/mL Troponin I 0.025 (0.000-0.034) ng/mL Coagulation 03/15/18 Range/Units 12:50 PT 10.5 (9.0-12.0) sec APTT 22.7 (22.0-30.0) sec Lipids 03/16/18 Range/Units 05:27 Triglycerides 141 (<150) mg/dL Cholesterol 125 (<200) mg/dL HDL Cholesterol 38 L (40-60) mg/dL CBC 03/15/18 03/16/18 Range/Units 12:50 05:27 WBC 11.3 H 9.7 (3.8-10.6) k/uL RBC 5.16 4.90 (3.80-5.40) m/uL Hgb 13.3 12.4 (11.4-16.0) gm/dL Hct 43.1 42.0 (34.0-46.0) % Plt Count 314 283 (150-450) k/uL Comprehensive Metabolic Panel 03/15/18 03/16/18 Range/Units 12:50 05:27 Sodium 141 139 (137-145) mmol/L Potassium 4.6 4.9 (3.5-5.1) mmol/L Chloride 109 H 102 (98-107) mmol/L Carbon Dioxide 20 L 26 (22-30) mmol/L BUN 17 18 H (7-17) mg/dL Creatinine 1.02 1.25 H (0.52-1.04) mg/dL Glucose 95 75 (74-99) mg/dL Calcium 9.7 9.3 (8.4-10.2) mg/dL AST 23 18 (14-36) U/L ALT 19 20 (9-52) U/L Alkaline Phosphatase 84 70 (38-126) U/L Total Protein 6.4 6.0 L (6.3-8.2) g/dL Albumin 4.0 3.6 (3.5-5.0) g/dL Current Medications Generic Name Dose Route Start Last Admin Trade Name Freq PRN Reason Stop Dose Admin Amiodarone HCl 100 mg 03/16/18 09:00 Cordarone PO DAILY [facility] Aspirin 325 mg 03/16/18 09:00 Aspirin PO DAILY [facility] Atorvastatin Calcium 20 mg 03/15/18 21:00 03/15/18 20:14 Lipitor PO 20 mg HS AAKASH Administration Budesonide/Formoterol Fumarate 2 puff 03/16/18 08:00 Symbicort 80-4.5 Mcg Inhaler INHALATION RT-BID [facility] Calcium Polycarbophil 1,250 mg 03/16/18 09:00 Fibercon PO DAILY [facility] Ferrous Sulfate 325 mg 03/16/18 09:00 Feosol PO DAILY [facility] Sodium Chloride 1,000 mls @ 50 mls/hr 03/15/18 20:45 03/15/18 21:09 Saline 0.9% IV 50 mls/hr .Q20H AAKASH Administration Levothyroxine Sodium 100 mcg 03/16/18 06:00 Synthroid PO DAILY@0600 AAKASH Lurasidone HCl 20 mg 03/16/18 09:00 Latuda PO DAILY AAKASH Melatonin 3 mg 03/15/18 21:00 03/15/18 20:14 Melatonin PO 3 mg HS AAKASH Administration Metoprolol Tartrate 25 mg 03/15/18 21:00 03/15/18 20:14 Lopressor PO 25 mg BID AAKASH Administration Midodrine 5 mg 03/15/18 17:30 03/15/18 20:14 Proamatine PO 5 mg AC-TID AAKASH Administration Montelukast Sodium 10 mg 03/15/18 21:00 03/15/18 20:14 Singulair PO 10 mg HS AAKASH Administration Morphine Sulfate 1 mg 03/15/18 20:38 03/16/18 05:07 Morphine Sulfate (Inj) IVP 1 mg Q3HR PRN Administration Moderate Pain Nitroglycerin 1 inch 03/15/18 19:00 03/15/18 23:47 Nitro-Bid Oint TOPICAL Not Given Q6HR [facility] Nitroglycerin 0.4 mg 03/15/18 14:37 Nitrostat SUBLINGUAL Q5M PRN Chest Pain Oxcarbazepine 150 mg 03/15/18 21:00 03/15/18 20:14 Trileptal PO 150 mg HS AAKASH Administration Pantoprazole Sodium 40 mg 03/16/18 07:30 Protonix PO AC-BRKFST AAKASH Paroxetine HCl 30 mg 03/15/18 21:00 03/15/18 20:15 Paxil PO 30 mg HS AAKASH Administration Potassium Chloride 10 meq 03/16/18 09:00 K-Dur 10 PO DAILY AAKASH Intake and Output 03/15/18 03/16/18 03/16/18 22:59 06:59 14:59 Intake Total 118 300 Output Total 0 Balance 118 300 Intake: Intake, IV Titration 300 Amount Sodium Chloride 0.9% 1, 300 000 ml @ 50 mls/hr IV . Q20H [facility] Rx#:[id number] Oral 118 Output: Urine 0 Other: Voiding Method Bedside Commode Bedside Commode # Voids 1 Weight 72.8 kg 03/16/18 05:27 03/16/18 05:27 EKG Interpretations (text) EKG shows a normal sinus rhythm with a right bundle branch block pattern and anterior T-wave inversion. Assessment and Plan Plan: Assessment and plan #1 chest discomfort with associated nausea, shortness of breath and mild diaphoresis, relieved with sublingual nitroglycerin. EKG shows normal sinus rhythm with a right bundle branch block pattern nonspecific ST-T wave changes. Troponins 0.012, 0.031, 0.025. #2 known history of coronary artery disease with prior RCA and LAD stenting, most recent heart cath was performed in December of this year which revealed a patent stent in the RCA, mild disease involving the ostial left main, mild circumflex disease, patent stent in the mid LAD #3 PAD with prior iliac stenting #4 hypertension #5 hyperlipidemia #6 COPD with home O2 use #7 sleep apnea #8 paroxysmal atrial fibrillation for which she takes xarelto at home for anticoagulation, it is currently on hold for a scheduled epidural injection #9 chronic back pain #10 mild generalized abdominal discomfort, ultrasound of the abdomen performed this morning Plan Recent echocardiogram with Doppler study was performed in arch of this year which revealed a normal left ventricular systolic function. We will repeat an echo this admission. Decrease aspirin to 81 mg daily, continue amiodarone, Lipitor, metoprolol 25 mg one tablet by mouth twice a day, further recommendations to follow. DNP note has been reviewed, I agree with a documented findings and plan of care. Patient was seen and examined.
[2018-03-16] MEDS ORDERED: NON-FORMULARY DRUG (Omeprazole 20 MG) PO SCH (09:00)
[2018-03-16] MEDS ORDERED: ASPIRIN 325 MG TAB PO SCH (09:00)
[2018-03-16] MEDS: SYMBICORT 80-4.5 MCG INHALER INHALATION SCH ×2 (09:51→19:24)
[2018-03-16] MEDS: ISOSORBIDE MONONITRATE ER 30 MG TAB.ER.24H PO SCH (11:06)
[2018-03-16] MEDS: MIDODRINE 5 MG TAB PO SCH ×3 (11:06→17:13)
[2018-03-16] MEDS: PANTOPRAZOLE 40 MG TABLET PO SCH (11:06)
[2018-03-16] MEDS: ASPIRIN 81 MG PO SCH (11:06)
[2018-03-16] MEDS: AMIODARONE 100 MG TAB PO SCH (11:06)
[2018-03-16] MEDS: LEVOTHYROXINE 100 MCG TAB PO SCH (11:07)
[2018-03-16] MEDS: POTASSIUM CHLORIDE ER 10 MEQ TAB.ER.PRT PO SCH (11:07)
[2018-03-16] MEDS: FERROUS SULFATE 325 MG TAB PO SCH (11:07)
[2018-03-16] MEDS: METOPROLOL TARTRATE 25 MG TAB PO SCH (11:07)
[2018-03-16] MEDS: LURASIDONE 40 MG TAB PO SCH (11:07)
[2018-03-16] MEDS: CALCIUM POLYCARBOPHIL 625 MG TAB PO SCH (11:10)
--- NOTE | 2018-03-16 11:17 | ECHOF ---
Referral Reason:chest pain MEASUREMENTS -------- HEIGHT: 162.6 cm WEIGHT: 72.6 kg BP: 91/54 RVIDd: 2.9 cm (< 3.3) IVSd: 1.3 cm (0.6 - 1.1) LVIDd: 3.8 cm (3.9 - 5.3) LVPWd: 1.2 cm (0.6 - 1.1) IVSs: 1.5 cm LVIDs: 2.9 cm LVPWs: 1.5 cm LA Diam: 3.5 cm (2.7 - 3.8) Ao Diam: 2.7 cm (2.0 - 3.7) AV Cusp: 1.7 cm (1.5 - 2.6) LA Diam: 4.5 cm (2.7 - 3.8) MV EXCURSION: 15.618 mm (> 18.000) MV EF SLOPE: 68 mm/s (70 - 150) EPSS: 0.3 cm MV E Mickey: 1.07 m/s MV DecT: 200 ms MV A Mickey: 0.78 m/s MV E/A Ratio: 1.37 RAP: 5.00 mmHg RVSP: 49.50 mmHg FINDINGS -------- Sinus rhythm. This was a technically good study. The left ventricular size is normal. There is mild concentric left ventricular hypertrophy. Overa ll left ventricular systolic function is low-normal with, an EF between 50 - 55 %. The right ventricle is normal in size. The left atrial size is normal. The right atrial size is normal. The aortic valve is trileaflet, and appears structurally normal. No aortic stenosis or regurgitation. Mild mitral regurgitation is present. Moderate tricuspid regurgitation present. There is moderate pulmonary hypertension. The right patricia tricular systolic pressure, as measured by Doppler, is 49.50mmHg. Trace/mild (physiologic) pulmonic regurgitation. The aortic root size is normal. There is no pericardial effusion. CONCLUSIONS -------- 1. The left ventricular size is normal. 2. Overall left ventricular systolic function is low-normal with, an EF between 50 - 55 %. 3. The right ventricle is normal in size. 4. The left atrial size is normal. 5. The right atrial size is normal. 6. The aortic valve is trileaflet, and appears structurally normal. No aortic stenosis or regurgitati on. 7. Mild mitral regurgitation is present. 8. Moderate tricuspid regurgitation present. 9. There is moderate pulmonary hypertension. 10. The right ventricular systolic pressure, as measured by Doppler, is 49.50mmHg. 11. Trace/mild (physiologic) pulmonic regurgitation. 12. The aortic root size is normal. 13. There is no pericardial effusion. DOLL SURGEON: Tara Capps RDCS
--- NOTE | 2018-03-16 12:06 | US ---
EXAMINATION TYPE: US abdomen complete DATE OF EXAM: 03/16/2018 COMPARISON: NONE CLINICAL HISTORY: abdominal pain. abd pain, right nephrectomy, probable cholecystitis per scar on abd , patient is very sleepy, on 6 of O2 and poor historian EXAM MEASUREMENTS: Liver Length: 17.8 cm Gallbladder Wall: Surgically absent CBD: 0.9 cm Spleen: 10.3 cm Right Kidney: Surgically absent Left Kidney: 11.1 x 4.5 x 5.0 cm Patients lack of mobility and inability to hold breath limits exam, overlying bowel gas Pancreas: wnl Liver: difficult to penetrate Gallbladder: Surgically absent Evidence for sonographic Johnson's sign: yes CBD: dilated with no obvious obstruction seen Spleen: very limited views Right Kidney: Surgically absent Left Kidney: wnl Upper IVC: wnl Abd Aorta: wnl IMPRESSION: 1. No acute abdominal process.
[2018-03-16] MEDS ORDERED: IV FLUID CONTINUATION 250 ML IV ONE (12:39)
--- NOTE | 2018-03-16 12:49 | P.PCN ---
Date of Procedure: 03/16/18 Description of Procedure: PREOPERATIVE DIAGNOSIS: 1- Lumbar Degenerative Disc Diseases 2-Lumbar spondylosis with Facet arthropathy without myelopathy POSTOPERATIVE DIAGNOSIS: 1-Lumber Degenerative Disc Diseases 2-Lumbar spondylosis with Facet arthropathy without myelopathy PROCEDURE 1. Lumbar epidural steroid injection under fluoroscopic guidance at the L5-S1 level. 2. Lumbar epidurogram. ANESTHESIA: Local PROCEDURE INDICATION: The patient with low back pain and radiculitis symptoms unresponsive to conservative treatment. Fluoroscopy was used to optimize visualization of the needle placement and to maximize safety. PROCEDURE DESCRIPTION / TECHNIQUE: The patient was seen and identified in the preoperative area. Risks, benefits , complications including but not limited to infections ,bleeding ,allergic reaction to the medications ,nerve damage and not complete pain releife , and alternatives were discussed with the patient. The patient agreed to proceed with the procedure and signed the consent. IV was started, and vital signs were stable. Patient was taken to the OR and time out was completed. The patient was placed in the prone position on procedure table and a pillow was placed under the abdomen to reduce lumbar lordosis. The lumbosacral area was prepped and draped in the usual sterile fashion.ere closely monitored during the procedure. Conscious sedation was used during the procedure to decrease patients anxiety. Vital signs was monitered during the entire procedure. Using anterior-posterior fluoroscopy, the L5-S1 interlaminar space was identified and the skin over this site was marked and then infiltrated with 1% lidocaine subcutaneously. Subsequently, a 20-gauge Tuohy epidural needle was inserted and advanced toward the epidural space using the ``Loss of resistance technique and guided by AP and lateral fluoroscopy. The correct needle position in the epidural space was verified with the injection of 2 mL of the water soluble contrast dye Omnipaque 180 contrast and observing an excellent epidurogram with the epidural spread of the dye, after negative aspiration for blood and CSF and in the absence of paresthesias. Again after negative aspiration, a 6 ml mixture containing 80 mg Kenalog and 4 ml of preservative free Normal Saline, was injected and a washout of epidurogram was seen. Needle was withdrawn intact, skin was cleansed, and bandages were applied. COMPLICATIONS: None DISPOSITION / PLANS: The patient was placed in a supine position and transferred to the recovery area in a stable condition for observation. There was no evidence of lower extremity motor or sensory deficit after the procedure. Patient was discharged from the recovery room after meeting discharge criteria. Home discharge instructions were given to the patient by the staff. The patient was reexamined prior to discharge. Have patient follow up in clinic in 4 weeks' time
--- NOTE | 2018-03-16 13:22 | FL ---
Fluoroscopy INDICATION: Pain FINDINGS: Fluoroscopy time: 10 seconds. Images obtained: 1. IMPRESSIONS: 1. Documentation of fluoroscopy.
[2018-03-16 13:43] LABS: Amylase 49 U/L (30-110); Lipase 79 U/L (23-300)
--- NOTE | 2018-03-16 14:11 | P.CNPUL ---
<Samantha Xiao E - Last Filed: 03/16/18 13:53> History of Present Illness Consult date: 03/16/18 Requesting physician: Abelardo Kelly Reason for consult: dyspnea, COPD Chief complaint: shortness of breath and chest pain History of present illness: This is a 67-year-old female patient being seen examined and evaluated today on rounds for consultation. This patient was previously going for an lumbar epidural back injection when she became short of breath and had some chest pain. She was transferred over to [facility] emergency room for evaluation and treatment. Patient was noted to be slightly hypertensive with a systolic pressure in the 180s. She did receive 3 doses of nitro and aspirin as well as labetalol that did have positive results in relieving the patient's chest pain. She also had an EKG which did show showing sinus rhythm with PACs and a) bundle-branch block. Her troponins have been negative. She did have a heart catheterization in December 2017 with a stent to the proximal right coronary artery with mild disease involving the left main and mild disease involving the left circumflex she also had a stent in the mid LAD. She did have a chest x- ray that was negative for any acute cardiopulmonary process. She does have an underlying history of pulmonary edema and pulmonary fibrosis as well as a known right upper lobe pulmonary nodule.. The patient recently stopped her Xarelto for 3 days prior to going for her back injection. She did have her lumbar injection today. She also complained of some diffuse abdominal pain which she has had chronically in the past for her IBS. She also also known to have chronic hypoxic respiratory failure and uses 3-4 L of supplemental oxygen at home. Upon examination she is resting up in bed on 3-4 L of oxygen. Does have some shortness of breath with exertion and activity. Denies any cough or congestion or sputum production. She has been using her Symbicort at home. She is afebrile no further complaints. All labs and reports have been reviewed. Review of Systems 14 point review of systems completed and is negative unless noted above in HPI Past Medical History Past Medical History: Atrial Fibrillation, Asthma, Coronary Artery Disease (CAD) , Cancer, COPD, CVA/TIA, Eye Disorder, GERD/Reflux, Hyperlipidemia, Hypertension , Memory Impairment, Myocardial Infarction (RI), Osteoarthritis (OA), Respiratory Disorder, Sleep Apnea/CPAP/BIPAP, Thyroid Disorder, Vascular Disorder Additional Past Medical History / Comment(s): febrile, recent UTI, hypotensive. Other hx: Home O2 prn but ATC lately, CVA x 3 with R arm and R leg weakness , vascular dementia, R trigeminal neuralgia, R eye astigmatism, occluded JOSE ALEJANDRO, PVD, past htn but b/ps running low now, IBS, diarrhea/constipation, chronic abdominal pain, chronic back pain, migraines-none recently, one hip higher, RLS , tremors, CHANDU without device (unable to tolerate), UTIs, hypothyroid, nasopharyngeal inflammatory mass, TMJ yrs ago, R kidney cancer and uterine cancer with surgeries. Last Myocardial Infarction Date:: 11/03/14 History of Any Multi-Drug Resistant Organisms: None Reported Date of last positivie culture/infection: None MDRO Source:: None Past Surgical History: Adenoidectomy, Bladder Surgery, Cholecystectomy, Ear Surgery, Heart Catheterization With Stent, Hysterectomy, Orthopedic Surgery, Tonsillectomy Additional Past Surgical History / Comment(s): 11/28/14 PTCA with stents, left CAROTID ENDARTERECTOMY, MULTIPLE BILATERAL STENTS IN LOWER EXTREMITIES, R elbow surgery as a child, R ear surgery for blockage, bilateral ankle arthroscopies, bilateral knee arthroscopies, deviated septal surgery, L great toe pinned, colonoscopies/benign polypectomy, R nephrectomy and partial bladder removal, skin lesion from nose. Past Anesthesia/Blood Transfusion Reactions: Motion Sickness Date of Last Stent Placement:: 10/2014 Smoking Status: Former smoker - Past Family History Mother Family Medical History: COPD Additional Family Medical History / Comment(s): Mother is . She from respiratory failure. Father Family Medical History: Coronary Artery Disease (CAD), Myocardial Infarction (RI ) Additional Family Medical History / Comment(s): Father had gout Medications and Allergies Home Medications Medication Instructions Recorded Confirmed Type PARoxetine HCL 30 mg PO HS 07/02/14 03/15/18 History OXcarbazepine [Trileptal] 150 mg PO HS 11/04/14 03/15/18 History Melatonin 3 mg PO HS 03/05/16 03/15/18 History Atorvastatin Calcium [Lipitor] 20 mg PO HS 06/13/17 03/15/18 History Calcium Polycarbophil [Fibercon] 1,250 mg PO DAILY 06/13/17 03/15/18 History Ferrous Sulfate [Iron (65 MG 325 mg PO DAILY 06/13/17 03/15/18 History Elemental)] Levothyroxine Sodium [Synthroid] 100 mcg PO DAILY@0600 06/13/17 03/15/18 History Lurasidone HCl [Latuda] 20 mg PO DAILY 06/13/17 03/15/18 History Montelukast [Singulair] 10 mg PO HS 06/13/17 03/15/18 History Pantoprazole Sodium [Protonix] 40 mg PO DAILY 06/13/17 03/15/18 History Potassium Chloride [Klor-Con 10] 10 meq PO DAILY 06/13/17 03/15/18 History Rivaroxaban [Xarelto] 15 mg PO W/SUPPER #30 tab 06/16/17 03/15/18 Rx Nitroglycerin Sl Tabs [Nitrostat] 0.4 mg SUBLINGUAL Q5M PRN tab 12/01/17 Rx Midodrine [ProAmatine] 5 mg PO TID #90 tablet 12/28/17 03/15/18 Rx Fluticasone/Vilanterol [Breo 1 puff INHALATION RT-DAILY 01/09/18 03/15/18 History Ellipta 100-25 Mcg Inhaler] Amiodarone [Cordarone] 100 mg PO DAILY 03/15/18 03/15/18 History Metoprolol Tartrate [Lopressor] 25 mg PO BID 03/15/18 03/15/18 History Omeprazole [PriLOSEC] 20 mg PO DAILY 03/15/18 03/15/18 History Allergies Allergy/AdvReac Type Severity Reaction Status Date / Time albuterol Allergy Rash/Hives Verified 03/16/18 12:39 latex Allergy Rash/Hives Verified 03/16/18 12:39 Penicillins Allergy Unknown Verified 03/16/18 12:39 Childhood Physical Exam Vitals: Vital Signs Temp Pulse Pulse Pulse Resp BP BP 03/16/18 12:44 98.4 F 53 L 16 03/16/18 12:21 97.6 F 57 L 60 16 89/46 03/16/18 08:32 97.6 F 70 56 L 16 91/54 03/16/18 05:02 60 18 03/16/18 04:00 59 L 18 03/16/18 03:51 97.0 F L 59 L 18 84/53 03/15/18 23:50 65 16 03/15/18 20:00 98.3 F 64 16 03/15/18 16:14 98.3 F 70 16 93/51 03/15/18 15:15 97.7 F 68 20 118/65 03/15/18 14:00 97.3 F L 64 20 142/95 BP BP Pulse Ox 03/16/18 12:44 83/50 92 L 03/16/18 12:21 95 03/16/18 08:32 98 03/16/18 05:02 124/60 104/51 93 L 03/16/18 04:00 03/16/18 03:51 80/53 92 L 03/15/18 23:50 97/68 91 L 03/15/18 20:00 88/59 91 L 03/15/18 16:14 92 L 03/15/18 15:15 91 L 03/15/18 14:00 89 L Intake and Output 03/15/18 03/16/18 03/16/18 22:59 06:59 14:59 Intake Total 118 300 Output Total 0 Balance 118 300 Intake: Intake, IV Titration 300 Amount Sodium Chloride 0.9% 1, 300 000 ml @ 50 mls/hr IV . Q20H [facility] Rx#:[id number] Oral 118 Output: Urine 0 Other: Voiding Method Bedside Commode Bedside Commode Bedside Commode # Voids 1 Weight 72.8 kg GENERAL EXAM: Alert, active, comfortable in no apparent distress. HEAD: Normocephalic. EYES: Normal reaction of pupils, equal size. NOSE: Clear with pink turbinates. THROAT: No erythema or exudates. NECK: No masses, no JVD. CHEST: No chest wall deformity. LUNGS: Equal air entry with no crackles, wheeze, rhonchi or dullness. Bases slightly diminished CVS: S1 and S2 normal with no audible mumurs, regular rhythm. ABDOMEN: No hepatosplenomegaly, normal bowel sounds, no guarding or rigidity. EXTREMITIES: No edema noted, pedal pulses palpable. CENTRAL NERVOUS SYSTEM: No focal deficits, tone is normal in all 4 extremities. Results - Laboratory Findings CBC and BMP: 03/16/18 05:27 03/16/18 05:27 PT/INR, D-dimer PT 10.5 sec (9.0-12.0) 03/15/18 12:50 INR 1.1 (<1.2) 03/15/18 12:50 Abnormal lab findings: Abnormal Labs 03/15/18 03/15/18 03/15/18 12:50 12:50 12:50 WBC 11.3 H MCHC 30.9 L RDW 17.5 H Neutrophils # 7.8 H Chloride 109 H Carbon Dioxide 20 L BUN Creatinine Total Creatine Kinase 23 L Total Protein HDL Cholesterol 03/15/18 03/16/18 03/16/18 18:35 00:23 05:27 WBC MCHC RDW Neutrophils # Chloride Carbon Dioxide BUN 18 H Creatinine 1.25 H Total Creatine Kinase 23 L 22 L Total Protein 6.0 L HDL Cholesterol 38 L 03/16/18 05:27 WBC MCHC 29.5 L RDW 17.1 H Neutrophils # Chloride Carbon Dioxide BUN Creatinine Total Creatine Kinase Total Protein HDL Cholesterol - Diagnostic Findings Chest x-ray: report reviewed, image reviewed Assessment and Plan Assessment: Assessment Acute on Chronic hypoxic respiratory failure requiring supplemental oxygen, patient did require up to 5 L in the ER Known right upper lobe pulmonary nodule with pulmonary fibrosis Chest pain COPD not acutely exacerbated Chronic lower back pain with degenerative disc disease Generalized abdominal pain History of A. fib History of hypertension Status post lumbar epidural injection Plan Medications have been reviewed and will be continued as ordered. No antibiotics or systemic steroids at this time from a pulmonary standpoint Continue with pulmonary hygiene, coughing and deep breathing exercises, and supportive care. Supplemental oxygen to maintain oxygen saturations of 92% or better. She should continue with her Symbicort Continue nebulizer treatments as needed. Patient will be going for a CT of the abdomen Restart Xarelto once approved by pain management who did the lumbar injection Cardiology on consult Echocardiogram reviewed EF 50-55% with RVSP of 49.5 GI and DVT prophylaxis. We will continue to monitor labs/results and adjust treatment as necessary. Further recommendations pending. I performed an examination of the patient and discussed their management with the nurse practitioner. I have reviewed the nurse practitioner's note and agree with the documented findings and plan of care. <Florinda Hutchinson - Last Filed: 03/17/18 10:59> Physical Exam Osteopathic Statement: *. No significant issues noted on an osteopathic structural exam other than those noted in the History and Physical/Consult. Vitals: Vital Signs Temp Pulse Pulse Pulse Resp BP BP 03/17/18 08:00 96.6 F L 66 16 87/53 03/16/18 20:42 62 03/16/18 20:31 57 L 03/16/18 20:00 97.4 F L 16 81/51 03/16/18 16:00 97.7 F 53 L 52 L 16 03/16/18 12:44 98.4 F 53 L 16 03/16/18 12:21 97.6 F 57 L 60 16 89/46 BP Pulse Ox 03/17/18 08:00 95 03/16/18 20:42 03/16/18 20:31 03/16/18 20:00 90 L 03/16/18 16:00 79/49 92 L 03/16/18 12:44 83/50 92 L 03/16/18 12:21 95 Intake and Output 03/16/18 03/17/18 03/17/18 22:59 06:59 14:59 Intake Total 240 Balance 240 Intake: Oral 240 Other: Voiding Method Bedside Commode # Voids 5 2 Weight 72.7 kg Results - Laboratory Findings CBC and BMP: 03/17/18 05:52 03/17/18 05:52 PT/INR, D-dimer PT 10.5 sec (9.0-12.0) 03/15/18 12:50 INR 1.1 (<1.2) 03/15/18 12:50 Abnormal lab findings: Abnormal Labs 03/15/18 03/15/18 03/15/18 12:50 12:50 12:50 WBC 11.3 H MCHC 30.9 L RDW 17.5 H Neutrophils # 7.8 H Chloride 109 H Carbon Dioxide 20 L BUN Creatinine Glucose Total Creatine Kinase 23 L Total Protein HDL Cholesterol 03/15/18 03/16/18 03/16/18 18:35 00:23 05:27 WBC MCHC RDW Neutrophils # Chloride Carbon Dioxide BUN 18 H Creatinine 1.25 H Glucose Total Creatine Kinase 23 L 22 L Total Protein 6.0 L HDL Cholesterol 38 L 03/16/18 03/17/18 03/17/18 05:27 05:52 05:52 WBC 11.0 H MCHC 29.5 L 29.6 L RDW 17.1 H 16.9 H Neutrophils # 9.6 H Chloride Carbon Dioxide BUN Creatinine Glucose 126 H Total Creatine Kinase Total Protein HDL Cholesterol Assessment and Plan Assessment: Patient is on 6L NC. Will add doxycycline for tracheobronchitis. No pneumonia on CXR from 03/15/2018. Outpatient follow up for RUL pulmonary nodule. Prednisone taper. Encourage ambulation. PT and OT. Sybmicort, Duonebs. GI and DVT prophylaxis. ~Florinda Hutchinson DO
--- NOTE | 2018-03-16 14:31 | P.PN ---
Subjective Progress Note Date: 03/16/18 This is a 67-year-old female, patient of [facility]. Patient seen and evaluated in the ER. Patient has had previous history of myocardial infarction, coronary artery disease with 4 cardiac stents, paroxysmal atrial fibrillation, hypertension hyperlipidemia and former smoker. She also has a history of COPD hypothyroidism CVA vascular dementia, trigeminal neuralgia, obstructive sleep apnea, bowel syndrome, peripheral arterial disease with stents in the lower extremities and bipolar. Patient has a history of degenerative disc disease in the spine and was scheduled to have a epidural completed with pain management in the outpatient setting. Daughter was present with patient. Patient was in the room and getting undressed and ready for the procedure she reports feeling very anxious and becoming short of breath and having chest pain across the chest. Saw blood pressure was elevated at 180. At the pain management office she received 3 nitro and aspirin and a dose of labetalol. This helped relieve patient's chest pain. She was then brought into the emergency room for further evaluation in regards to her chest pain. EKG showing sinus rhythm with PACs and right bundle audra block. First troponin was negative. Patient's last heart catheterization was in December 2017 which showed patent stent in the proximal right coronary artery, mild disease involving the ostial left main, mild disease involving the left circumflex and patent stent in the mid LAD. At that time cardiology recommended maximize medical treatment. Chest x-ray shows no acute cardiopulmonary disease. Does reveal known underlying pulmonary edema on pulmonary fibrosis and a known right upper lobe pulmonary nodule. Patient's daughter reports that her mother is unable to participate in some of the day programs that she used to due to her pain. She will prefer if patient could receive the epidural injection for her back pain before restarting the Xarelto. Patient is also reporting during this chest pain episode that she had right-sided numbness which she's had on previous strokes. She has been off of her Xarelto for 3 days for the spinal epidural procedure. Patient admits to some nausea. Denies any vomiting bowel movement changes or urinary symptoms. Denies any cough fever or chills or sweats. Denies any facial droop or slurred speech. She also reports having some right lower abdominal pain. Daughter reports this is consistent with patient's history of IBS. Patient also has a history of chronic hypoxic respiratory failure and has been on 3 L oxygen at home. Cardiology and pain service has been consulted. Patient daughter reports that her mother had been on Ativan and [place] previously after her stay at [facility] in December. However, her PCP will not refill his medications and wanted her mother to stop taking them. She has only been using Tylenol for pain control. On 03/16/2018 patient is currently resting. Planning for epidural injection this afternoon. Ultrasound of abdomen completed showing no acute abdominal process. Per cardiology 2-D echo has been ordered and aspirin has been decreased to [address] of abdomen and pelvis has been ordered due to recent weight loss. Amalyse and lipase levels have been ordered. Pulmonary services have been consulted. Objective - Vital Signs Vital signs: Vital Signs Temp 98.4 F 03/16/18 12:44 Pulse 53 L 03/16/18 12:44 Resp 16 03/16/18 12:44 BP 83/50 03/16/18 12:44 Pulse Ox 92 L 03/16/18 12:44 Intake & Output 03/15/18 03/16/18 03/16/18 18:59 06:59 18:59 Intake Total 118 300 Output Total 0 Balance 118 300 Weight 71.214 kg 72.8 kg Intake: Intake, IV Titration 300 Amount Sodium Chloride 0.9% 1, 300 000 ml @ 50 mls/hr IV . Q20H [facility] Rx#:[id number] Oral 118 Output: Urine 0 Other: Voiding Method Bedside Commode Bedside Commode # Voids 1 - Exam Head normocephalic Neck supple Lungs clear to auscultation bilaterally no wheezing or crackles Heart regular rate and rhythm S1-S2, no rub or gallop. Tenderness with palpation of the chest wall which was reducible on her chest pain Abdomen is soft right lower quadrant tenderness nondistended positive bowel sounds no hepatosplenomegaly Extremities no edema Neuro alert and orientated to 3 - Labs CBC & Chem 7: 03/16/18 05:27 03/16/18 05:27 Labs: Abnormal Lab Results - Last 24 Hours (Table) 03/15/18 03/16/18 03/16/18 Range/Units 18:35 00:23 05:27 MCHC (31.0-37.0) g/dL RDW (11.5-15.5) % BUN 18 H (7-17) mg/dL Creatinine 1.25 H (0.52-1.04) mg/dL Total Creatine Kinase 23 L 22 L (30-135) U/L Total Protein 6.0 L (6.3-8.2) g/dL HDL Cholesterol 38 L (40-60) mg/dL 03/16/18 Range/Units 05:27 MCHC 29.5 L (31.0-37.0) g/dL RDW 17.1 H (11.5-15.5) % BUN (7-17) mg/dL Creatinine (0.52-1.04) mg/dL Total Creatine Kinase (30-135) U/L Total Protein (6.3-8.2) g/dL HDL Cholesterol (40-60) mg/dL Assessment and Plan Assessment: 1. Chest pain: Initial troponin negative. EKG sinus rhythm with PACs and right bundle audra block. Continue to monitor serial cardiac enzymes. Cardiology consulted. Continue with aspirin and Lipitor. 2-D echo has been ordered per cardiology. Aspirin has been decreased to 81 mg 2. Chronic lower back pain with degenerative disc disease. Patient scheduled for a spinal epidural injection today outpatient. Pain management will be consulted for possible spinal epidural injection completed inpatient before Xarelto is restarted. Xarelto currently on hold 3. Right-sided numbness during the chest pain episode. Patient has been off of Xarelto for [address] scan of the brain to rule out new stroke. CT of head showing right frontal lobe encephalomalcia without change compared to old exam. no acute intracranial abnormality. 4. Right lower quadrant abdominal pain. Check abdominal ultrasound. Also check urinalysis with culture. Patient does have a history of irritable bowel syndrome. By has been having normal bowel movements. Ultrasound of the abdomen completed showing no acute abdominal process. CT of the abdomen have been ordered due to recent weight loss 5. History of paroxysmal atrial fibrillation on amiodarone. Xarelto currently on hold for possible spinal epidural injection 6. Essential hypertension. Elevated blood pressure outpatient receiving extra labetalol. Patient usually has hypotension and is on midodrine 7. Right upper lobe pulmonary nodule and possible pulmonary fibrosis being followed outpatient with pulmonary service 8. Chronic hypoxic respiratory failure home O2 dependent usually uses [address] Hutchinson per pulmonary services have been consulted 9. History of COPD no evidence of exacerbation at this time 10. History of CVA 11. history of myocardial infarction and coronary artery disease with previous cardiac stents 12. History of bipolar continue Latuda and Trileptal 13. History of Renal cancer status post right nephrectomy GI prophylaxis Protonix and DVT prophylaxis SCDs. Xarelto on hold for possible spinal epidural injection I performed an examination of the patient and discussed their management with the Nurse Practitioner. I have reviewed the Nurse Practitioner's notes and agree with the documented findings and plan of care
[2018-03-16] MEDS: IOPAMIDOL-300 CONTRAST 30 ML VIAL (ORAL USE) PO PRN ×2 (15:28→16:17)
[2018-03-16] MEDS: SODIUM CHLORIDE 0.9% 1,000 ML IV SCH (15:46)
[2018-03-16 17:26] LABS: Appearance,Urine Clear (Clear); Bilirubin,Urine Negative (Negative); Blood,Urine Negative (Negative); Color,Urine Light Yellow; Glucose,Urine (UA) Negative (Negative); Ketones,Urine Negative (Negative); Leukocyte Esterase,Urine Negative (Negative); Nitrite,Urine Negative (Negative); PH, Urine 6.5 (5.0-8.0); Protein,Urine Negative (Negative); Specific Gravity,Urine 1.007 (1.001-1.035); Urobilinogen,Urine <2.0 mg/dL (<2.0)
[2018-03-16] MEDS: IPRATROPIUM-ALBUTEROL 3 ML NEB INHALATION PRN (20:29)
[2018-03-16] MEDS: MELATONIN 3 MG TABLET PO SCH (20:40)
[2018-03-16] MEDS: OXcarbazepine 150 MG TAB PO SCH (20:40)
[2018-03-16] MEDS: ATORVASTATIN 20 MG TAB PO SCH (20:40)
[2018-03-16] MEDS: MONTELUKAST 10 MG TAB PO SCH (20:40)
[2018-03-16] MEDS: PARoxetine 10 MG TAB PO SCH (20:40)
[2018-03-16] MEDS ORDERED: METOPROLOL TARTRATE 25 MG TAB ONE (21:00)
--- NOTE | 2018-03-16 22:23 | CT ---
EXAMINATION TYPE: CT abdomen pelvis wo con DATE OF EXAM: 03/16/2018 COMPARISON: 12/16/2018 HISTORY: Abdominal pain, recent weight loss CT DLP: 493.1 mGycm Automated exposure control for dose reduction was used. TECHNIQUE: Helical acquisition of images was performed from the lung bases through the pelvis. FINDINGS: LUNG BASES: No acute process. Mild cardiomegaly and coronary calcifications noted. LIVER/GB: No significant abnormality is appreciated. PANCREAS: No significant abnormality is seen. SPLEEN: No significant abnormality is seen. ADRENALS: No significant abnormality is seen. KIDNEYS: No significant abnormality is seen. Surgical absence of the right kidney noted. PERITONEAL CAVITY: No free air is visualized. No peritoneal fluid. RETROPERITONEAL ADENOPATHY: None visualized REPRODUCTIVE ORGANS: No significant abnormality is seen URINARY BLADDER: No significant abnormality is seen. PELVIC ADENOPATHY: None visualized. OSSEOUS STRUCTURES: No definite acute process. However, a few gas bubbles are noted in epidural posi tion and the lower lumbar spine, presumably secondary to recent procedure. BOWEL: No significant abnormality is seen. IMPRESSION: 1. NO DEFINITE ACUTE PROCESS, CT WITHOUT CONTRAST. 2. HOWEVER, EPIDURAL AIR BUBBLES NOTED IN THE LOWER LUMBAR SPINE NOTED, WOULD REQUEST CONFIRMATION TH AT THESE ARE POSTPROCEDURAL.
[2018-03-17] MEDS: METOPROLOL TARTRATE 25 MG TAB PO SCH ×3 (05:10→20:38)
[2018-03-17] MEDS: NITROGLYCERIN OINT 1 INCH/GM PACKET TOPICAL SCH (05:11)
[2018-03-17 06:21] LABS: Anisocytosis Slight; Basophils % (A) 0 %; Eosinophils # (A) 0.1 k/uL (0-0.7); Eosinophils % (A) 1 %; HCT 40.8 % (34.0-46.0); HGB 12.1 gm/dL (11.4-16.0); Hypochromasia Moderate; Lymphocytes # (A) 1.1 k/uL (1.0-4.8); Lymphocytes % (A) 10 %; MCH 25.2 pg (25.0-35.0); MCHC 29.6 g/dL (31.0-37.0); MCV 85.3 fL (80.0-100.0); Mean Platelet Volume 6.4; Monocytes # (A) 0.2 k/uL (0-1.0); Monocytes % (A) 2 %; Neutrophils # (A) 9.6 k/uL (1.3-7.7); Neutrophils % (A) 87 %; Platelet Count 261 k/uL (150-450); RBC 4.79 m/uL (3.80-5.40); RDW 16.9 % (11.5-15.5)
[2018-03-17 06:38] LABS: Albumin 3.8 g/dL (3.5-5.0); Calcium 9.6 mg/dL (8.4-10.2); Total Bilirubin 0.3 mg/dL (0.2-1.3); Total Protein 6.3 g/dL (6.3-8.2)
[2018-03-17] MEDS: PANTOPRAZOLE 40 MG TABLET PO SCH (06:46)
[2018-03-17] MEDS: LEVOTHYROXINE 100 MCG TAB PO SCH (06:46)
[2018-03-17] MEDS: MIDODRINE 5 MG TAB PO SCH ×3 (06:46→20:39)
[2018-03-17] MEDS: SYMBICORT 80-4.5 MCG INHALER INHALATION SCH ×2 (09:01→18:54)
[2018-03-17] MEDS: MORPHINE SULFATE 2 MG/ML SYRINGE IVP PRN (09:26)
[2018-03-17] MEDS: AMIODARONE 100 MG TAB PO SCH (09:29)
[2018-03-17] MEDS: ISOSORBIDE MONONITRATE ER 30 MG TAB.ER.24H PO SCH (09:29)
[2018-03-17] MEDS: CALCIUM POLYCARBOPHIL 625 MG TAB PO SCH (09:29)
[2018-03-17] MEDS: LURASIDONE 40 MG TAB PO SCH (09:29)
[2018-03-17] MEDS: ASPIRIN 81 MG PO SCH (09:30)
[2018-03-17] MEDS: POTASSIUM CHLORIDE ER 10 MEQ TAB.ER.PRT PO SCH ×2 (09:30→09:37)
--- NOTE | 2018-03-17 10:36 | P.PN ---
<Samantha Xiao E - Last Filed: 03/17/18 10:28> Subjective Progress Note Date: 03/17/18 History of present illness: This is a 67-year-old female patient being seen examined and evaluated today on rounds for consultation. This patient was previously going for an lumbar epidural back injection when she became short of breath and had some chest pain. She was transferred over to [facility] emergency room for evaluation and treatment. Patient was noted to be slightly hypertensive with a systolic pressure in the 180s. She did receive 3 doses of nitro and aspirin as well as labetalol that did have positive results in relieving the patient's chest pain. She also had an EKG which did show showing sinus rhythm with PACs and a) bundle-branch block. Her troponins have been negative. She did have a heart catheterization in December 2017 with a stent to the proximal right coronary artery with mild disease involving the left main and mild disease involving the left circumflex she also had a stent in the mid LAD. She did have a chest x- ray that was negative for any acute cardiopulmonary process. She does have an underlying history of pulmonary edema and pulmonary fibrosis as well as a known right upper lobe pulmonary nodule.. The patient recently stopped her Xarelto for 3 days prior to going for her back injection. She did have her lumbar injection today. She also complained of some diffuse abdominal pain which she has had chronically in the past for her IBS. She also also known to have chronic hypoxic respiratory failure and uses 3-4 L of supplemental oxygen at home. Upon examination she is resting up in bed on 3-4 L of oxygen. Does have some shortness of breath with exertion and activity. Denies any cough or congestion or sputum production. She has been using her Symbicort at home. She is afebrile no further complaints. All labs and reports have been reviewed. Interval History: 03/17/18- patient seen seen examined and evaluated today on rounds. She is resting up in bed on 6 L of supplemental oxygen via nasal cannula. She does have shortness of breath with exertion and activity. She has had a cough with some congestion and yellow sputum today. All labs and reports have been reviewed. She continues to be worked up by primary services for abdominal discomfort. Objective - Vital Signs Vital signs: Vital Signs Temp 96.6 F L 03/17/18 08:00 Pulse 66 03/17/18 08:00 Resp 16 03/17/18 08:00 BP 87/53 03/17/18 08:00 Pulse Ox 95 03/17/18 08:00 Intake & Output 03/16/18 03/17/18 03/17/18 18:59 06:59 18:59 Intake Total 880 Balance 880 Weight 72.7 kg Intake: Intake, IV Titration 400 Amount Sodium Chloride 0.9% 1, 400 000 ml @ 50 mls/hr IV . Q20H [facility] Rx#:[id number] Oral 480 Other: Voiding Method Bedside Commode Bedside Commode # Voids 2 - Exam GENERAL EXAM: Alert, active, comfortable in no apparent distress. HEAD: Normocephalic. EYES: Normal reaction of pupils, equal size. NOSE: Clear with pink turbinates. THROAT: No erythema or exudates. NECK: No masses, no JVD. CHEST: No chest wall deformity. LUNGS: Equal air entry with no crackles, wheeze, rhonchi or dullness. Bases slightly diminished CVS: S1 and S2 normal with no audible mumurs, regular rhythm. ABDOMEN: No hepatosplenomegaly, normal bowel sounds, no guarding or rigidity. EXTREMITIES: No edema noted, pedal pulses palpable. CENTRAL NERVOUS SYSTEM: No focal deficits, tone is normal in all 4 extremities. - Labs CBC & Chem 7: 03/17/18 05:52 03/17/18 05:52 Labs: Abnormal Lab Results - Last 24 Hours (Table) 03/17/18 03/17/18 Range/Units 05:52 05:52 WBC 11.0 H (3.8-10.6) k/uL MCHC 29.6 L (31.0-37.0) g/dL RDW 16.9 H (11.5-15.5) % Neutrophils # 9.6 H (1.3-7.7) k/uL Glucose 126 H (74-99) mg/dL Microbiology - Last 24 Hours (Table) 03/16/18 17:00 Urine Culture - Preliminary Urine,Clean Catch Assessment and Plan Assessment: Assessment Tracheobronchitis Acute on Chronic hypoxic respiratory failure requiring supplemental oxygen, patient did require up to 5 L in the ER Known right upper lobe pulmonary nodule with pulmonary fibrosis Chest pain COPD not acutely exacerbated Chronic lower back pain with degenerative disc disease Generalized abdominal pain History of A. fib History of hypertension Status post lumbar epidural injection Plan Medications have been reviewed and will be continued as ordered. We will add doxycycline and prednisone for tracheobronchitis Continue with pulmonary hygiene, coughing and deep breathing exercises, and supportive care. Supplemental oxygen to maintain oxygen saturations of 92% or better. Initiate and encourage incentive spirometer She should continue with her Symbicort Continue nebulizer treatments as needed. Patient will be going for a CT of the abdomen Restart Xarelto once approved by pain management who did the lumbar injection Cardiology on consult Echocardiogram reviewed EF 50-55% with RVSP of 49.5 GI and DVT prophylaxis. Increase activity as tolerated PT and OT We will continue to monitor labs/results and adjust treatment as necessary. Further recommendations pending. I performed an examination of the patient and discussed their management with the nurse practitioner. I have reviewed the nurse practitioner's note and agree with the documented findings and plan of care. <Florinda Hutchinson A - Last Filed: 03/17/18 11:00> Objective - Vital Signs Vital signs: Vital Signs Temp 96.6 F L 03/17/18 08:00 Pulse 66 03/17/18 08:00 Resp 16 03/17/18 08:00 BP 87/53 03/17/18 08:00 Pulse Ox 95 03/17/18 08:00 Intake & Output 03/16/18 03/17/18 03/17/18 18:59 06:59 18:59 Intake Total 880 Balance 880 Weight 72.7 kg Intake: Intake, IV Titration 400 Amount Sodium Chloride 0.9% 1, 400 000 ml @ 50 mls/hr IV . Q20H [facility] Rx#:[id number] Oral 480 Other: Voiding Method Bedside Commode Bedside Commode # Voids 2 - Labs CBC & Chem 7: 03/17/18 05:52 03/17/18 05:52 Labs: Abnormal Lab Results - Last 24 Hours (Table) 03/17/18 03/17/18 Range/Units 05:52 05:52 WBC 11.0 H (3.8-10.6) k/uL MCHC 29.6 L (31.0-37.0) g/dL RDW 16.9 H (11.5-15.5) % Neutrophils # 9.6 H (1.3-7.7) k/uL Glucose 126 H (74-99) mg/dL Microbiology - Last 24 Hours (Table) 03/16/18 17:00 Urine Culture - Preliminary Urine,Clean Catch Assessment and Plan Assessment: Doxy, Prednisone, Symbicort, Duonebs, PT and OT. IS and pulmonary hygiene. ~Florinda Hutchinson DO
[2018-03-17] MEDS ORDERED: DOXYCYCLINE 50 MG CAP PO SCH (10:45)
[2018-03-17] MEDS: FERROUS SULFATE 325 MG TAB PO SCH (12:04)
[2018-03-17] MEDS: predniSONE 50 MG TAB PO SCH (12:05)
--- NOTE | 2018-03-17 13:37 | P.PN ---
Subjective Progress Note Date: 03/17/18 This is a 67-year-old female, patient of [facility]. Patient seen and evaluated in the ER. Patient has had previous history of myocardial infarction, coronary artery disease with 4 cardiac stents, paroxysmal atrial fibrillation, hypertension hyperlipidemia and former smoker. She also has a history of COPD hypothyroidism CVA vascular dementia, trigeminal neuralgia, obstructive sleep apnea, bowel syndrome, peripheral arterial disease with stents in the lower extremities and bipolar. Patient has a history of degenerative disc disease in the spine and was scheduled to have a epidural completed with pain management in the outpatient setting. Daughter was present with patient. Patient was in the room and getting undressed and ready for the procedure she reports feeling very anxious and becoming short of breath and having chest pain across the chest. Saw blood pressure was elevated at 180. At the pain management office she received 3 nitro and aspirin and a dose of labetalol. This helped relieve patient's chest pain. She was then brought into the emergency room for further evaluation in regards to her chest pain. EKG showing sinus rhythm with PACs and right bundle audra block. First troponin was negative. Patient's last heart catheterization was in December 2017 which showed patent stent in the proximal right coronary artery, mild disease involving the ostial left main, mild disease involving the left circumflex and patent stent in the mid LAD. At that time cardiology recommended maximize medical treatment. Chest x-ray shows no acute cardiopulmonary disease. Does reveal known underlying pulmonary edema on pulmonary fibrosis and a known right upper lobe pulmonary nodule. Patient's daughter reports that her mother is unable to participate in some of the day programs that she used to due to her pain. She will prefer if patient could receive the epidural injection for her back pain before restarting the Xarelto. Patient is also reporting during this chest pain episode that she had right-sided numbness which she's had on previous strokes. She has been off of her Xarelto for 3 days for the spinal epidural procedure. Patient admits to some nausea. Denies any vomiting bowel movement changes or urinary symptoms. Denies any cough fever or chills or sweats. Denies any facial droop or slurred speech. She also reports having some right lower abdominal pain. Daughter reports this is consistent with patient's history of IBS. Patient also has a history of chronic hypoxic respiratory failure and has been on 3 L oxygen at home. Cardiology and pain service has been consulted. Patient daughter reports that her mother had been on Ativan and [place] previously after her stay at [facility] in December. However, her PCP will not refill his medications and wanted her mother to stop taking them. She has only been using Tylenol for pain control. On 03/16/2018 patient is currently resting. Planning for epidural injection this afternoon. Ultrasound of abdomen completed showing no acute abdominal process. Per cardiology 2-D echo has been ordered and aspirin has been decreased to [address] of abdomen and pelvis has been ordered due to recent weight loss. Amalyse and lipase levels have been ordered. Pulmonary services have been consulted. 03/17/2018 patient is status post lumbar epidural injection. She is reporting improvement in her back pain and chest pain. Xarelto will be resumed today. She was also started on doxycycline and prednisone per pulmonary service for bronchitis. Patient reports a good appetite. Computed tomography scan of the abdomen shows no acute changes. Abdominal ultrasound was negative. Patient was hypotensive this morning she is on Midodrine and repeat blood pressure show improvement 109/62. Patient denies any nausea or vomiting. Denies any bowel movement changes or urinary symptoms. She reports that she starting to feel better. Objective - Vital Signs Vital signs: Vital Signs Temp 96.6 F L 03/17/18 08:00 Pulse 61 03/17/18 12:00 Resp 16 03/17/18 12:00 BP 109/62 03/17/18 12:00 Pulse Ox 90 L 03/17/18 12:00 Intake & Output 03/16/18 03/17/18 03/17/18 18:59 06:59 18:59 Intake Total 880 Balance 880 Weight 72.7 kg Intake: Intake, IV Titration 400 Amount Sodium Chloride 0.9% 1, 400 000 ml @ 50 mls/hr IV . Q20H [facility] Rx#:[id number] Oral 480 Other: Voiding Method Bedside Commode Bedside Commode Bedside Commode # Voids 2 - Exam Head normocephalic Neck supple Lungs diminished Heart regular rate and rhythm S1-S2, no rub or gallop Abdomen is soft nontender nondistended positive bowel sounds no hepatosplenomegaly Extremities no edema Neuro alert and orientated to 3 - Labs CBC & Chem 7: 03/17/18 05:52 03/17/18 05:52 Labs: Abnormal Lab Results - Last 24 Hours (Table) 03/17/18 03/17/18 Range/Units 05:52 05:52 WBC 11.0 H (3.8-10.6) k/uL MCHC 29.6 L (31.0-37.0) g/dL RDW 16.9 H (11.5-15.5) % Neutrophils # 9.6 H (1.3-7.7) k/uL Glucose 126 H (74-99) mg/dL Microbiology - Last 24 Hours (Table) 03/16/18 17:00 Urine Culture - Preliminary Urine,Clean Catch Assessment and Plan Assessment: 1. Chest pain: Initial troponin negative. EKG sinus rhythm with PACs and right bundle audra block. Cardiac enzymes negative 3 sets. Patient seen by cardiology echo showing an EF of 50-55%. They've decreased aspirin to 81 mg daily. Continue Lipitor 2. Chronic lower back pain with degenerative disc disease. Status post lumbar epidural and injection. Back pain improved 3. Right-sided numbness during the chest pain episode. Patient has been off of Xarelto for 3 days. Computed tomography scan of the brain showing right frontal lobe encephalomalcia without change compared to old exam. no acute intracranial abnormality. 4. Right lower quadrant abdominal pain. Abdominal ultrasound and computed tomography scan the abdomen showing no acute abnormality. Amylase lipase and LFTs all within normal range. Urinalysis negative no evidence of UTI 5. History of paroxysmal atrial fibrillation on amiodarone. Xarelto restarted today 6. Essential hypertension. Elevated blood pressure outpatient receiving extra labetalol. Patient usually has hypotension and is on midodrine 7. Right upper lobe pulmonary nodule and possible pulmonary fibrosis being followed outpatient with pulmonary service 8. Acute on chronic Chronic hypoxic respiratory failure home O2 dependent usually uses 3 L of oxygen. Patient currently requiring 6 L. Possibly related to her bronchitis and COPD. Patient currently on doxycycline and prednisone 9. History of COPD no evidence of exacerbation at this time 10. History of CVA 11. history of myocardial infarction and coronary artery disease with previous cardiac stents 12. History of bipolar continue Latuda and Trileptal 13. History of Renal cancer status post right nephrectomy 14. Acute tracheobronchitis: Seen by pulmonary service started on doxycycline and prednisone GI prophylaxis Protonix and DVT prophylaxis Xarelto Agree with physical therapy and occupational therapy consult I performed an examination of the patient and discussed their management with the physician Tassel Maker. I have reviewed the Physician Tassel Maker's notes and agree with the documented findings and plan of care
--- NOTE | 2018-03-17 14:20 | P.PN ---
Subjective Progress Note Date: 03/17/18 This is a 67-year-old female who follows with Dr. Torres in the office. She has past medical history significant for coronary artery disease and prior RCA and LAD stenting, most recent cardiac catheterization was performed in December of this year which revealed a patent stent in the proximal RCA , mild disease involving the ostial left main appeared to be in the range of 30% , mild disease in the circumflex, mid stent in the mid LAD patent with mild disease involving the ostial LAD medical therapy advised at that time. Patient also has history of paroxysmal atrial fibrillation for which she takes xarelto, COPD with home O2 use, hypertension, hyperlipidemia, mild memory impairment, sleep apnea, prior history of stroke, PAD, chronic back pain, GERD, sleep apnea , hypothyroidism. She presents to the hospital on this occasion with symptoms of chest pain which she states radiated across her chest and into her right arm. She states that she was nauseated, mildly short of breath and diaphoretic. Patient was in the hospital, scheduled to have an epidural injection, and prior to the procedure being initiated she developed this chest discomfort. Patient was given aspirin, and 3 sublingual nitroglycerin. She does state that the nitroglycerin relieved her symptoms. Patient was also very hypertensive at that time. Her xarelto has been on hold for 3 days to have this injection, he continues to be on hold at this time. Her EKG on arrival here showed normal sinus rhythm with a right bundle branch block pattern and nonspecific ST-T wave changes noted in the anterior leads which seemed to have resolved this morning. That scan of the brain was performed which revealed right frontal lobe encephalomalacia without change compared with prior. No acute change noted. The pressure on arrival here 106/59 heart rate in the 60s. Blood cell count 11.3 on admission, 9.7 this morning, hemoglobin 13.3, platelet count 314. Sodium 141, potassium 4.6, BUN 17, creatinine 1.0. BUN this morning 18 and creatinine 1.2. Potassium 4.9. Troponins 0.012, 0.031, 0.025. The time of my examination this morning, patient 's complaining of back discomfort, mild generalized abdominal discomfort and intermittent chest discomfort. 03/17/2018 Patient did undergo her epidural injection. She was seen and examined today and feels significantly better overall. Quite eager to be discharged today. She has been resumed on her xarelto. Objective - Vital Signs Vital signs: Vital Signs Temp 96.6 F L 03/17/18 08:00 Pulse 61 03/17/18 12:00 Resp 16 03/17/18 12:00 BP 109/62 03/17/18 12:00 Pulse Ox 90 L 03/17/18 12:00 Intake & Output 03/16/18 03/17/18 03/17/18 18:59 06:59 18:59 Intake Total 880 Balance 880 Weight 72.7 kg Intake: Intake, IV Titration 400 Amount Sodium Chloride 0.9% 1, 400 000 ml @ 50 mls/hr IV . Q20H [facility] Rx#:[id number] Oral 480 Other: Voiding Method Bedside Commode Bedside Commode Bedside Commode # Voids 2 - Exam PHYSICAL EXAMINATION: GENERAL: 67-year-old frail female in no acute distress at the time of my examination HEENT: Head is atraumatic, normocephalic. Pupils equal, round. Sclera anicteric. Conjunctiva are clear. Mucous membranes of the mouth are moist. Neck is supple. There is no elevated jugular venous pressure. No carotid bruit is heard. HEART EXAMINATION: Heart S1, S2 normal. No murmur or gallop heard. CHEST EXAMINATION: Lungs are clear to auscultation and precussion. No chest wall tenderness is noted on palpation or with deep breathing. ABDOMEN: Soft, mild generalized tenderness . Bowel sounds are heard. No organomegaly noted]. EXTREMITIES:[ 1+ peripheral pulses with no evidence of peripheral edema and no calf tenderness noted]. NEUROLOGIC [patient is awake, alert and oriented ?-3.] . - Labs CBC & Chem 7: 03/17/18 05:52 03/17/18 05:52 Labs: Abnormal Lab Results - Last 24 Hours (Table) 03/17/18 03/17/18 Range/Units 05:52 05:52 WBC 11.0 H (3.8-10.6) k/uL MCHC 29.6 L (31.0-37.0) g/dL RDW 16.9 H (11.5-15.5) % Neutrophils # 9.6 H (1.3-7.7) k/uL Glucose 126 H (74-99) mg/dL Microbiology - Last 24 Hours (Table) 03/16/18 17:00 Urine Culture - Preliminary Urine,Clean Catch Assessment and Plan Plan: Assessment and plan #1 chest discomfort with associated nausea, shortness of breath and mild diaphoresis, relieved with sublingual nitroglycerin. EKG shows normal sinus rhythm with a right bundle branch block pattern nonspecific ST-T wave changes. Troponins 0.012, 0.031, 0.025. #2 known history of coronary artery disease with prior RCA and LAD stenting, most recent heart cath was performed in December of this year which revealed a patent stent in the RCA, mild disease involving the ostial left main, mild circumflex disease, patent stent in the mid LAD #3 PAD with prior iliac stenting #4 hypertension #5 hyperlipidemia #6 COPD with home O2 use #7 sleep apnea #8 paroxysmal atrial fibrillation for which she takes xarelto at home for anticoagulation, it is currently on hold for a scheduled epidural injection #9 chronic back pain #10 mild generalized abdominal discomfort, ultrasound of the abdomen performed this morning Plan Recent echocardiogram with Doppler study was performed in of this year which revealed a normal left ventricular systolic function. Patient did undergo her epidural injection and today overall feeling significantly better. From cardiology's perspective, she may be able to be discharged home today follow-up appointment will be made in the office with Dr. Torres. DNP note has been reviewed, I agree with a documented findings and plan of care. Patient was seen and examined.
[2018-03-17] MEDS: HYDROcodone/APAP 5-325MG 1 EACH TAB PO PRN (15:27)
[2018-03-17] MEDS: RIVAROXABAN 15 MG TAB PO SCH (16:47)
[2018-03-17] MEDS: ATORVASTATIN 20 MG TAB PO SCH (20:38)
[2018-03-17] MEDS: OXcarbazepine 150 MG TAB PO SCH (20:38)
[2018-03-17] MEDS: MONTELUKAST 10 MG TAB PO SCH (20:38)
[2018-03-17] MEDS: MELATONIN 3 MG TABLET PO SCH (20:38)
[2018-03-17] MEDS: PARoxetine 10 MG TAB PO SCH (20:38)
[2018-03-17] MEDS: DOXYCYCLINE MONOHYDRATE 100 MG CAPSULE PO SCH (20:45)
[2018-03-18 06:25] LABS: Anisocytosis Slight; Basophils % (A) 0 %; Eosinophils % (A) 0 %; HCT 44.3 % (34.0-46.0); HGB 13.2 gm/dL (11.4-16.0); Hypochromasia Moderate; Lymphocytes # (A) 1.3 k/uL (1.0-4.8); Lymphocytes % (A) 8 %; MCH 25.4 pg (25.0-35.0); MCHC 29.9 g/dL (31.0-37.0); MCV 84.8 fL (80.0-100.0); Mean Platelet Volume 6.7; Monocytes # (A) 0.5 k/uL (0-1.0); Monocytes % (A) 3 %; Neutrophils # (A) 14.4 k/uL (1.3-7.7); Neutrophils % (A) 88 %; Platelet Count 313 k/uL (150-450); RBC 5.22 m/uL (3.80-5.40); WBC 16.3 k/uL (3.8-10.6)
[2018-03-18] MEDS: LEVOTHYROXINE 100 MCG TAB PO SCH (06:34)
[2018-03-18] MEDS: PANTOPRAZOLE 40 MG TABLET PO SCH (06:34)
[2018-03-18] MEDS: MIDODRINE 5 MG TAB PO SCH ×3 (06:35→17:19)
[2018-03-18 06:42] LABS: Albumin 4.3 g/dL (3.5-5.0); Calcium 10.1 mg/dL (8.4-10.2); Potassium 4.9 mmol/L (3.5-5.1); Total Bilirubin 0.4 mg/dL (0.2-1.3)
[2018-03-18] MEDS: SYMBICORT 80-4.5 MCG INHALER INHALATION SCH ×2 (08:00→20:08)
--- NOTE | 2018-03-18 08:49 | P.PN ---
Subjective Progress Note Date: 03/18/18 This is a 67-year-old female patient being seen examined and evaluated today on rounds for consultation. This patient was previously going for an lumbar epidural back injection when she became short of breath and had some chest pain. She was transferred over to [facility] emergency room for evaluation and treatment. Patient was noted to be slightly hypertensive with a systolic pressure in the 180s. She did receive 3 doses of nitro and aspirin as well as labetalol that did have positive results in relieving the patient's chest pain. She also had an EKG which did show showing sinus rhythm with PACs and a) bundle-branch block. Her troponins have been negative. She did have a heart catheterization in December 2017 with a stent to the proximal right coronary artery with mild disease involving the left main and mild disease involving the left circumflex she also had a stent in the mid LAD. She did have a chest x- ray that was negative for any acute cardiopulmonary process. She does have an underlying history of pulmonary edema and pulmonary fibrosis as well as a known right upper lobe pulmonary nodule.. The patient recently stopped her Xarelto for 3 days prior to going for her back injection. She did have her lumbar injection today. She also complained of some diffuse abdominal pain which she has had chronically in the past for her IBS. She also also known to have chronic hypoxic respiratory failure and uses 3-4 L of supplemental oxygen at home. Upon examination she is resting up in bed on 3-4 L of oxygen. Does have some shortness of breath with exertion and activity. Denies any cough or congestion or sputum production. She has been using her Symbicort at home. She is afebrile no further complaints. All labs and reports have been reviewed. Interval History: 03/17/18- patient seen seen examined and evaluated today on rounds. She is resting up in bed on 6 L of supplemental oxygen via nasal cannula. She does have shortness of breath with exertion and activity. She has had a cough with some congestion and yellow sputum today. All labs and reports have been reviewed. She continues to be worked up by primary services for abdominal discomfort. 03/18/2018: Patient seen and examined. Patient states she is feeling little bit better overall. She is complaining of continued chronic back pain. Her O2 saturation is 92% on 6 L nasal cannula. We will decrease her to 5 L nasal cannula and monitor her saturations closely. The patient denies shortness of breath, fevers, chills, cough Objective - Vital Signs Vital signs: Vital Signs Temp 96.9 F L 03/18/18 04:00 Pulse 71 03/18/18 04:00 Resp 16 03/18/18 04:00 BP 158/64 03/18/18 04:00 Pulse Ox 92 L 03/18/18 04:00 Intake & Output 03/17/18 03/18/18 03/18/18 18:59 06:59 18:59 Intake Total 460 200 240 Output Total 700 600 600 Balance -240 -400 -360 Weight 73.9 kg Intake: Oral 460 200 240 Output: Urine 700 600 600 Other: Voiding Method Bedside Commode Bedside Commode # Voids 2 - Exam GENERAL EXAM: Alert, active, comfortable in no apparent distress. HEAD: Normocephalic. EYES: Normal reaction of pupils, equal size. NOSE: Clear with pink turbinates. THROAT: No erythema or exudates. NECK: No masses, no JVD. CHEST: No chest wall deformity. LUNGS: Equal air entry with no crackles, wheeze, rhonchi or dullness. Bases slightly diminished CVS: S1 and S2 normal with no audible mumurs, regular rhythm. ABDOMEN: No hepatosplenomegaly, normal bowel sounds, no guarding or rigidity. EXTREMITIES: No edema noted, pedal pulses palpable. CENTRAL NERVOUS SYSTEM: No focal deficits, tone is normal in all 4 extremities. - Labs CBC & Chem 7: 03/18/18 05:52 03/18/18 05:52 Labs: Abnormal Lab Results - Last 24 Hours (Table) 03/18/18 03/18/18 Range/Units 05:52 05:52 WBC 16.3 H (3.8-10.6) k/uL MCHC 29.9 L (31.0-37.0) g/dL RDW 17.0 H (11.5-15.5) % Neutrophils # 14.4 H (1.3-7.7) k/uL BUN 18 H (7-17) mg/dL Glucose 119 H (74-99) mg/dL AST 74 H (14-36) U/L ALT 84 H (9-52) U/L Microbiology - Last 24 Hours (Table) 03/16/18 17:00 Urine Culture - Final Urine,Clean Catch Assessment and Plan Assessment: Tracheobronchitis Acute on Chronic hypoxic respiratory failure requiring supplemental oxygen, patient did require up to 5 L in the ER Known right upper lobe pulmonary nodule with pulmonary fibrosis Chest pain COPD not acutely exacerbated Chronic lower back pain with degenerative disc disease Generalized abdominal pain History of A. fib History of hypertension Status post lumbar epidural injection Plan Medications have been reviewed and will be continued as ordered. Continue doxycycline and prednisone for tracheobronchitis Continue with pulmonary hygiene, coughing and deep breathing exercises, and supportive care. Supplemental oxygen to maintain oxygen saturations of 92% or better. Initiate and encourage incentive spirometer She should continue with her Symbicort Continue nebulizer treatments as needed. Restart Xarelto once approved by pain management who did the lumbar injection Cardiology on consult Echocardiogram reviewed EF 50-55% with RVSP of 49.5 GI and DVT prophylaxis. Increase activity as tolerated PT and OT We will continue to monitor labs/results and adjust treatment as necessary. Further recommendations pending. OK to DC from pulmonary standpoint with Prednisone taper and Doxycycline x 5 days
[2018-03-18] MEDS: METOPROLOL TARTRATE 25 MG TAB PO SCH ×2 (09:08→19:57)
[2018-03-18] MEDS: predniSONE 50 MG TAB PO SCH (09:08)
[2018-03-18] MEDS: FERROUS SULFATE 325 MG TAB PO SCH (09:08)
[2018-03-18] MEDS: LURASIDONE 40 MG TAB PO SCH (09:08)
[2018-03-18] MEDS: ASPIRIN 81 MG PO SCH (09:08)
[2018-03-18] MEDS: DOXYCYCLINE MONOHYDRATE 100 MG CAPSULE PO SCH ×2 (09:08→19:57)
[2018-03-18] MEDS: POTASSIUM CHLORIDE ER 10 MEQ TAB.ER.PRT PO SCH (09:08)
[2018-03-18] MEDS: ISOSORBIDE MONONITRATE ER 30 MG TAB.ER.24H PO SCH (09:08)
[2018-03-18] MEDS: AMIODARONE 100 MG TAB PO SCH (09:08)
[2018-03-18] MEDS: CALCIUM POLYCARBOPHIL 625 MG TAB PO SCH (09:08)
[2018-03-18] MEDS: SODIUM CHLORIDE 0.9% 1,000 ML IV SCH ×2 (09:11→10:23)
--- NOTE | 2018-03-18 12:22 | PN ---
PROGRESS NOTE Ms. Mckeon is a 67-year-old female who presented with chest pain and severe back discomfort. She has underwent injection her back. She is feeling better in that regard. She still has some discomfort in the chest related to her back. Her breathing has been stable. She is denying any symptoms of dizziness or palpitation. Overall she feels better. She continues to be on amiodarone 100 mg daily, isosorbide mononitrate 30 mg daily, metoprolol tartrate 25 mg twice a day, midodrine, prednisone and Xarelto 15 mg daily. PHYSICAL EXAMINATION: Blood pressure 138/80 with a heart rate in the 70s. LUNGS: Clear. HEART: Regular rate and rhythm. S1, S2. No S3 with systolic murmur. ABDOMEN: Soft, nontender. EXTREMITIES: No edema. IMPRESSION: 1. History of coronary artery disease, status post percutaneous revascularization, stable. Recent cardiac catheterization revealed no evidence of progression of disease. 2. Paroxysmal atrial fibrillation, remains in sinus mechanism. 3. Back discomfort. 4. Atypical chest pain. 5. History of peripheral vessel disease. 6. Chronic obstructive heart disease. RECOMMENDATION: From the cardiac standpoint, she is stable on the present medical regimen. I would expect she should be able to be discharged home soon and follow up as an outpatient. MMODL / IJN: [id number] /
--- NOTE | 2018-03-18 12:46 | P.PN ---
Subjective Progress Note Date: 03/18/18 This is a 67-year-old female, patient of [facility]. Patient seen and evaluated in the ER. Patient has had previous history of myocardial infarction, coronary artery disease with 4 cardiac stents, paroxysmal atrial fibrillation, hypertension hyperlipidemia and former smoker. She also has a history of COPD hypothyroidism CVA vascular dementia, trigeminal neuralgia, obstructive sleep apnea, bowel syndrome, peripheral arterial disease with stents in the lower extremities and bipolar. Patient has a history of degenerative disc disease in the spine and was scheduled to have a epidural completed with pain management in the outpatient setting. Daughter was present with patient. Patient was in the room and getting undressed and ready for the procedure she reports feeling very anxious and becoming short of breath and having chest pain across the chest. Saw blood pressure was elevated at 180. At the pain management office she received 3 nitro and aspirin and a dose of labetalol. This helped relieve patient's chest pain. She was then brought into the emergency room for further evaluation in regards to her chest pain. EKG showing sinus rhythm with PACs and right bundle audra block. First troponin was negative. Patient's last heart catheterization was in December 2017 which showed patent stent in the proximal right coronary artery, mild disease involving the ostial left main, mild disease involving the left circumflex and patent stent in the mid LAD. At that time cardiology recommended maximize medical treatment. Chest x-ray shows no acute cardiopulmonary disease. Does reveal known underlying pulmonary edema on pulmonary fibrosis and a known right upper lobe pulmonary nodule. Patient's daughter reports that her mother is unable to participate in some of the day programs that she used to due to her pain. She will prefer if patient could receive the epidural injection for her back pain before restarting the Xarelto. Patient is also reporting during this chest pain episode that she had right-sided numbness which she's had on previous strokes. She has been off of her Xarelto for 3 days for the spinal epidural procedure. Patient admits to some nausea. Denies any vomiting bowel movement changes or urinary symptoms. Denies any cough fever or chills or sweats. Denies any facial droop or slurred speech. She also reports having some right lower abdominal pain. Daughter reports this is consistent with patient's history of IBS. Patient also has a history of chronic hypoxic respiratory failure and has been on 3 L oxygen at home. Cardiology and pain service has been consulted. Patient daughter reports that her mother had been on Ativan and [place] previously after her stay at [facility] in December. However, her PCP will not refill his medications and wanted her mother to stop taking them. She has only been using Tylenol for pain control. On 03/16/2018 patient is currently resting. Planning for epidural injection this afternoon. Ultrasound of abdomen completed showing no acute abdominal process. Per cardiology 2-D echo has been ordered and aspirin has been decreased to [address] of abdomen and pelvis has been ordered due to recent weight loss. Amalyse and lipase levels have been ordered. Pulmonary services have been consulted. 03/17/2018 patient is status post lumbar epidural injection. She is reporting improvement in her back pain and chest pain. Xarelto will be resumed today. She was also started on doxycycline and prednisone per pulmonary service for bronchitis. Patient reports a good appetite. Computed tomography scan of the abdomen shows no acute changes. Abdominal ultrasound was negative. Patient was hypotensive this morning she is on Midodrine and repeat blood pressure show improvement 109/62. Patient denies any nausea or vomiting. Denies any bowel movement changes or urinary symptoms. She reports that she starting to feel better. 03/18/2018 patient reports improvement in her back pain. She is still having some chest pains that are reproducible with palpation. Xarelto was restarted yesterday. Patient worked with physical therapy this morning and became very short of breath. Oxygen had been increased to 10 L. She was able to recover and then option came back down to 6 L at 96%. She has been on 3 L of oxygen at home. She is complaining of constipation bowel movements been very small. She had a slight increase in her liver enzymes AST 74 and ALT 84 Lipitor discontinued. Patient has been cleared by cardiology and pulmonary service for discharge Objective - Vital Signs Vital signs: Vital Signs Temp 97.2 F L 03/18/18 12:00 Pulse 67 03/18/18 12:00 Resp 18 03/18/18 12:00 BP 128/82 03/18/18 12:00 Pulse Ox 96 03/18/18 12:00 Intake & Output 03/17/18 03/18/18 03/18/18 18:59 06:59 18:59 Intake Total 460 200 240 Output Total 700 600 600 Balance -240 -400 -360 Weight 73.9 kg Intake: Oral 460 200 240 Output: Urine 700 600 600 Other: Voiding Method Bedside Commode Bedside Commode # Voids 2 - Exam Head normocephalic Neck supple Lungs diminished Heart regular rate and rhythm S1-S2, no rub or gallop Abdomen is soft nontender nondistended positive bowel sounds no hepatosplenomegaly Extremities no edema Neuro alert and orientated to 3 - Labs CBC & Chem 7: 03/18/18 05:52 03/18/18 05:52 Labs: Abnormal Lab Results - Last 24 Hours (Table) 03/18/18 03/18/18 Range/Units 05:52 05:52 WBC 16.3 H (3.8-10.6) k/uL MCHC 29.9 L (31.0-37.0) g/dL RDW 17.0 H (11.5-15.5) % Neutrophils # 14.4 H (1.3-7.7) k/uL BUN 18 H (7-17) mg/dL Glucose 119 H (74-99) mg/dL AST 74 H (14-36) U/L ALT 84 H (9-52) U/L Microbiology - Last 24 Hours (Table) 03/16/18 17:00 Urine Culture - Final Urine,Clean Catch Assessment and Plan Assessment: 1. Chest pain: EKG sinus rhythm with PACs and right bundle audra block. Cardiac enzymes negative 3 sets. Patient seen by cardiology echo showing an EF of 50-55%. They've decreased aspirin to 81 mg daily. 2. Chronic lower back pain with degenerative disc disease. Status post lumbar epidural and injection. Back pain improved. Continue [place] 3. Right-sided numbness during the chest pain episode. Patient has been off of Xarelto for 3 days. Computed tomography scan of the brain showing right frontal lobe encephalomalcia without change compared to old exam. no acute intracranial abnormality. 4. Right lower quadrant abdominal pain. Abdominal ultrasound and computed tomography scan the abdomen showing no acute abnormality. Amylase lipase and LFTs all within normal range. Urinalysis negative no evidence of UTI 5. History of paroxysmal atrial fibrillation on amiodarone. Continue Xarelto 6. Essential hypertension. Elevated blood pressure outpatient receiving extra labetalol. Patient usually has hypotension and is on midodrine 7. Right upper lobe pulmonary nodule and possible pulmonary fibrosis being followed outpatient with pulmonary service 8. Acute on chronic Chronic hypoxic respiratory failure home O2 dependent usually uses 3 L of oxygen. Patient currently requiring 6 L. Possibly related to her bronchitis and COPD. Patient currently on doxycycline and prednisone 9. History of COPD no evidence of exacerbation at this time 10. History of CVA 11. history of myocardial infarction and coronary artery disease with previous cardiac stents 12. History of bipolar continue Latuda and Trileptal 13. History of Renal cancer status post right nephrectomy 14. Acute tracheobronchitis: Seen by pulmonary service started on doxycycline and prednisone 15. Mildly elevated LFTs. Discontinue Lipitor. Repeat labs in a.m. 16. Constipation start Colace Hep-Lock IV. Encouraged patient to increase activity. Continue PT OT GI prophylaxis Protonix and DVT prophylaxis Xarelto I performed an examination of the patient and discussed their management with the physician Lime Boiler. I have reviewed the Physician Lime Boiler's notes and agree with the documented findings and plan of care
[2018-03-18] MEDS: HYDROcodone/APAP 5-325MG 1 EACH TAB PO PRN (15:43)
[2018-03-18] MEDS: DOCUSATE 100 MG CAP PO SCH ×2 (15:44→19:59)
[2018-03-18] MEDS: RIVAROXABAN 15 MG TAB PO SCH (17:19)
[2018-03-18] MEDS: MONTELUKAST 10 MG TAB PO SCH (19:57)
[2018-03-18] MEDS: MELATONIN 3 MG TABLET PO SCH (19:57)
[2018-03-18] MEDS: PARoxetine 10 MG TAB PO SCH (19:57)
[2018-03-18] MEDS: OXcarbazepine 150 MG TAB PO SCH (19:58)
[2018-03-18] MEDS: IPRATROPIUM-ALBUTEROL 3 ML NEB INHALATION PRN (20:08)
[2018-03-18] MEDS: ALPRAZolam 0.25 MG TAB PO PRN (23:42)
[2018-03-19] MEDS: methylPREDNISolone SOD SUCCI 125 MG/2 ML VIAL IV SCH ×4 (01:29→17:47)
[2018-03-19] MEDS: PANTOPRAZOLE 40 MG TABLET PO SCH (06:29)
[2018-03-19] MEDS: MIDODRINE 5 MG TAB PO SCH ×4 (06:29→17:51)
[2018-03-19] MEDS: LEVOTHYROXINE 100 MCG TAB PO SCH (06:29)
[2018-03-19 07:18] LABS: Anisocytosis Slight; Basophils % (A) 0 %; Eosinophils % (A) 0 %; HCT 43.4 % (34.0-46.0); Hypochromasia Slight; Lymphocytes # (A) 1.2 k/uL (1.0-4.8); Lymphocytes % (A) 8 %; MCH 25.5 pg (25.0-35.0); MCHC 30.1 g/dL (31.0-37.0); MCV 84.6 fL (80.0-100.0); Mean Platelet Volume 6.9; Monocytes # (A) 0.2 k/uL (0-1.0); Monocytes % (A) 2 %; Neutrophils # (A) 12.4 k/uL (1.3-7.7); Neutrophils % (A) 89 %; Platelet Count 330 k/uL (150-450); RBC 5.12 m/uL (3.80-5.40); RDW 17.3 % (11.5-15.5); WBC 13.8 k/uL (3.8-10.6)
[2018-03-19 07:37] LABS: Albumin 4.2 g/dL (3.5-5.0); Calcium 9.9 mg/dL (8.4-10.2); Potassium 4.9 mmol/L (3.5-5.1); Total Bilirubin 0.3 mg/dL (0.2-1.3); Total Protein 6.7 g/dL (6.3-8.2)
[2018-03-19] MEDS: SYMBICORT 80-4.5 MCG INHALER INHALATION SCH ×2 (07:40→19:43)
[2018-03-19] MEDS: IPRATROPIUM-ALBUTEROL 3 ML NEB INHALATION PRN ×3 (07:40→19:43)
[2018-03-19] MEDS: AMIODARONE 100 MG TAB PO SCH (09:37)
[2018-03-19] MEDS: CALCIUM POLYCARBOPHIL 625 MG TAB PO SCH (09:38)
[2018-03-19] MEDS: DOCUSATE 100 MG CAP PO SCH ×2 (09:38→20:04)
[2018-03-19] MEDS: FERROUS SULFATE 325 MG TAB PO SCH (09:38)
[2018-03-19] MEDS: ISOSORBIDE MONONITRATE ER 30 MG TAB.ER.24H PO SCH (09:39)
[2018-03-19] MEDS: LURASIDONE 40 MG TAB PO SCH (09:39)
[2018-03-19] MEDS: DOXYCYCLINE MONOHYDRATE 100 MG CAPSULE PO SCH ×2 (09:40→20:03)
[2018-03-19] MEDS: POTASSIUM CHLORIDE ER 10 MEQ TAB.ER.PRT PO SCH (09:40)
[2018-03-19] MEDS: METOPROLOL TARTRATE 25 MG TAB PO SCH ×2 (09:41→20:05)
--- NOTE | 2018-03-19 12:54 | P.PN ---
Subjective Progress Note Date: 03/19/18 This is a 67-year-old female, patient of [facility]. Patient seen and evaluated in the ER. Patient has had previous history of myocardial infarction, coronary artery disease with 4 cardiac stents, paroxysmal atrial fibrillation, hypertension hyperlipidemia and former smoker. She also has a history of COPD hypothyroidism CVA vascular dementia, trigeminal neuralgia, obstructive sleep apnea, bowel syndrome, peripheral arterial disease with stents in the lower extremities and bipolar. Patient has a history of degenerative disc disease in the spine and was scheduled to have a epidural completed with pain management in the outpatient setting. Daughter was present with patient. Patient was in the room and getting undressed and ready for the procedure she reports feeling very anxious and becoming short of breath and having chest pain across the chest. Saw blood pressure was elevated at 180. At the pain management office she received 3 nitro and aspirin and a dose of labetalol. This helped relieve patient's chest pain. She was then brought into the emergency room for further evaluation in regards to her chest pain. EKG showing sinus rhythm with PACs and right bundle audra block. First troponin was negative. Patient's last heart catheterization was in December 2017 which showed patent stent in the proximal right coronary artery, mild disease involving the ostial left main, mild disease involving the left circumflex and patent stent in the mid LAD. At that time cardiology recommended maximize medical treatment. Chest x-ray shows no acute cardiopulmonary disease. Does reveal known underlying pulmonary edema on pulmonary fibrosis and a known right upper lobe pulmonary nodule. Patient's daughter reports that her mother is unable to participate in some of the day programs that she used to due to her pain. She will prefer if patient could receive the epidural injection for her back pain before restarting the Xarelto. Patient is also reporting during this chest pain episode that she had right-sided numbness which she's had on previous strokes. She has been off of her Xarelto for 3 days for the spinal epidural procedure. Patient admits to some nausea. Denies any vomiting bowel movement changes or urinary symptoms. Denies any cough fever or chills or sweats. Denies any facial droop or slurred speech. She also reports having some right lower abdominal pain. Daughter reports this is consistent with patient's history of IBS. Patient also has a history of chronic hypoxic respiratory failure and has been on 3 L oxygen at home. Cardiology and pain service has been consulted. Patient daughter reports that her mother had been on Ativan and [place] previously after her stay at [facility] in December. However, her PCP will not refill his medications and wanted her mother to stop taking them. She has only been using Tylenol for pain control. On 03/16/2018 patient is currently resting. Planning for epidural injection this afternoon. Ultrasound of abdomen completed showing no acute abdominal process. Per cardiology 2-D echo has been ordered and aspirin has been decreased to [address] of abdomen and pelvis has been ordered due to recent weight loss. Amalyse and lipase levels have been ordered. Pulmonary services have been consulted. 03/17/2018 patient is status post lumbar epidural injection. She is reporting improvement in her back pain and chest pain. Xarelto will be resumed today. She was also started on doxycycline and prednisone per pulmonary service for bronchitis. Patient reports a good appetite. Computed tomography scan of the abdomen shows no acute changes. Abdominal ultrasound was negative. Patient was hypotensive this morning she is on Midodrine and repeat blood pressure show improvement 109/62. Patient denies any nausea or vomiting. Denies any bowel movement changes or urinary symptoms. She reports that she starting to feel better. 03/18/2018 patient reports improvement in her back pain. She is still having some chest pains that are reproducible with palpation. Xarelto was restarted yesterday. Patient worked with physical therapy this morning and became very short of breath. Oxygen had been increased to 10 L. She was able to recover and then option came back down to 6 L at 96%. She has been on 3 L of oxygen at home. She is complaining of constipation bowel movements been very small. She had a slight increase in her liver enzymes AST 74 and ALT 84 Lipitor discontinued. Patient has been cleared by cardiology and pulmonary service for discharge. on 03/19/2018 patient is alert and oriented in no distress, she reports improvement in her back pain. Patient worked with physical therapy this morning and became very short of breath. Oxygen had been increased to 10 L. yesterday She was able to recover and then option came back down to 6 L at 96%. Now she is on BiPAP She has been on 3 L of oxygen at home. She is complaining of constipation otherwise she denies any complaints. Objective - Vital Signs Vital signs: Vital Signs Temp 97.3 F L 03/19/18 09:30 Pulse 59 L 03/19/18 11:20 Resp 22 03/19/18 09:30 BP 120/79 03/19/18 09:30 Pulse Ox 100 03/19/18 09:30 Intake & Output 03/18/18 03/19/18 03/19/18 18:59 06:59 18:59 Intake Total 1020 10 Output Total 600 Balance 420 10 Weight 73.2 kg Intake: IV 10 Invasive Line 2 10 Intake, IV Titration 0 Amount Sodium Chloride 0.9% 1, 0 000 ml @ 50 mls/hr IV . Q20H [facility] Rx#:[id number] Oral 1020 0 Output: Urine 600 Other: Voiding Method Bedside Commode Bedside Commode # Voids 2 - Exam Head normocephalic and atraumatic Neck supple no JVD no goiter Lungs distant lung sounds bilaterally no audible wheezing Heart regular rate and rhythm S1-S2, no rub or gallop Abdomen is soft nontender nondistended positive bowel sounds no hepatosplenomegaly Extremities no edema no cyanosis or clubbing Neuro alert and orientated to 3 no gross focal deficit - Labs CBC & Chem 7: 03/19/18 06:50 03/19/18 06:50 Labs: Abnormal Lab Results - Last 24 Hours (Table) 03/19/18 03/19/18 Range/Units 06:50 06:50 WBC 13.8 H (3.8-10.6) k/uL MCHC 30.1 L (31.0-37.0) g/dL RDW 17.3 H (11.5-15.5) % Neutrophils # 12.4 H (1.3-7.7) k/uL BUN 18 H (7-17) mg/dL Glucose 133 H (74-99) mg/dL AST 40 H (14-36) U/L ALT 67 H (9-52) U/L Assessment and Plan Plan: 1. Chest pain: EKG sinus rhythm with PACs and right bundle audra block. Cardiac enzymes negative 3 sets. Patient seen by cardiology echo showing an EF of 50-55%. They've decreased aspirin to 81 mg daily. No intervention recommended at this time. Patient denies any chest pain today. 2. Chronic lower back pain with degenerative disc disease. Status post lumbar epidural and injection. Back pain improved. Continue [place] 3. Right-sided numbness during the chest pain episode. Patient has been off of Xarelto for 3 days. Computed tomography scan of the brain showing right frontal lobe encephalomalcia without change compared to old exam. no acute intracranial abnormality. Patient is back on Xarelto at this time. 4. Right lower quadrant abdominal pain. Abdominal ultrasound and computed tomography scan the abdomen showing no acute abnormality. Amylase lipase and LFTs all within normal range. Urinalysis negative no evidence of UTI 5. History of paroxysmal atrial fibrillation on amiodarone. Continue Xarelto 6. Essential hypertension. Elevated blood pressure outpatient receiving extra labetalol. Patient usually has hypotension and is on midodrine 7. Right upper lobe pulmonary nodule and possible pulmonary fibrosis being followed outpatient with pulmonary service 8. Acute on chronic Chronic hypoxic respiratory failure home O2 dependent usually uses 3 L of oxygen. Patient currently requiring 6 L. Possibly related to her bronchitis and COPD. Patient currently on doxycycline and prednisone, today patient is requiring BiPAP, pulmonary doctor tenderness and S/P Rodriguez are following 9. History of COPD no evidence of exacerbation at this time 10. History of CVA 11. history of myocardial infarction and coronary artery disease with previous cardiac stents 12. History of bipolar continue Latuda and Trileptal 13. History of Renal cancer status post right nephrectomy 14. Acute tracheobronchitis: Seen by pulmonary service started on doxycycline and prednisone 15. Mildly elevated LFTs. Discontinue Lipitor. Repeat labs in a.m. 16. Constipation start Colace Hep-Lock IV. Encouraged patient to increase activity. Continue PT OT GI prophylaxis Protonix and DVT prophylaxis Xarelto
--- NOTE | 2018-03-19 13:35 | PN ---
PROGRESS NOTE DATE OF SERVICE: 03/19/2018 She had been more short of breath and hypoxic last night. She was placed on BiPAP and started on IV steroids. She states she is doing better. When she was finally taken off the BiPAP, her O2 SATs dropped quite quickly. PHYSICAL EXAMINATION: Her blood pressure is 120/79, respiratory rate at 22, pulse rate of 58, temperature 97.3. HEENT is unremarkable. Chest reveals decreased breath sounds. Scattered crackles in the bases. Cardiovascular system is S1, S2. Abdomen is soft. There is trace edema. White count is 13.8, hemoglobin of 13. Sodium 138, potassium 4.9, chloride 101, bicarb 27, BUN 18, creatinine 0.88. Input and output is showing that she was 880 mL positive, subsequently -640, but overall her weight is higher than on admission. IMPRESSION: 1. Congestive heart failure. 2. Acute on chronic respiratory failure. 3. Asthma with chronic obstructive pulmonary disease with acute exacerbation. Continue IV steroids. Attempt to keep her in negative fluid balance. Use BiPAP as needed. Increase her activity level. Depending on how she does we shall make further changes to her care. MMODL / IJN: [id number] /
[2018-03-19] MEDS: RIVAROXABAN 15 MG TAB PO SCH (17:47)
[2018-03-19] MEDS: NITROGLYCERIN SL TABS 0.4 MG TAB SUBLINGUAL PRN ×3 (18:47→19:07)
[2018-03-19] MEDS: ALPRAZolam 0.25 MG TAB PO PRN (19:21)
[2018-03-19] MEDS: PARoxetine 10 MG TAB PO SCH (20:03)
[2018-03-19] MEDS: MELATONIN 3 MG TABLET PO SCH (20:04)
[2018-03-19] MEDS: OXcarbazepine 150 MG TAB PO SCH (20:04)
[2018-03-19] MEDS: MONTELUKAST 10 MG TAB PO SCH (20:04)
[2018-03-20] MEDS: methylPREDNISolone SOD SUCCI 125 MG/2 ML VIAL IV SCH ×4 (00:16→17:29)
[2018-03-20] MEDS: ALPRAZolam 0.25 MG TAB PO PRN (00:16)
[2018-03-20] MEDS: HYDROcodone/APAP 5-325MG 1 EACH TAB PO PRN (00:17)
[2018-03-20] MEDS: NITROGLYCERIN OINT 1 INCH/GM PACKET TOPICAL SCH ×3 (00:18→17:29)
[2018-03-20] MEDS: MIDODRINE 5 MG TAB PO SCH ×3 (06:26→17:29)
[2018-03-20] MEDS: LEVOTHYROXINE 100 MCG TAB PO SCH (06:26)
[2018-03-20] MEDS: PANTOPRAZOLE 40 MG TABLET PO SCH (06:26)
[2018-03-20 06:54] LABS: Anisocytosis Slight; Basophils % (A) 0 %; Eosinophils # (A) 0.1 k/uL (0-0.7); Eosinophils % (A) 0 %; HCT 44.6 % (34.0-46.0); HGB 13.5 gm/dL (11.4-16.0); Hypochromasia Slight; Lymphocytes # (A) 1.4 k/uL (1.0-4.8); Lymphocytes % (A) 9 %; MCH 25.3 pg (25.0-35.0); MCHC 30.2 g/dL (31.0-37.0); MCV 83.6 fL (80.0-100.0); Mean Platelet Volume 6.5; Monocytes # (A) 0.3 k/uL (0-1.0); Monocytes % (A) 2 %; Neutrophils # (A) 13.3 k/uL (1.3-7.7); Neutrophils % (A) 88 %; Platelet Count 341 k/uL (150-450); RBC 5.33 m/uL (3.80-5.40); RDW 17.2 % (11.5-15.5); WBC 15.2 k/uL (3.8-10.6)
[2018-03-20] MEDS: IPRATROPIUM-ALBUTEROL 3 ML NEB INHALATION PRN ×2 (07:05→13:03)
[2018-03-20] MEDS: SYMBICORT 80-4.5 MCG INHALER INHALATION SCH ×2 (07:05→19:45)
[2018-03-20 07:15] LABS: Albumin 4.2 g/dL (3.5-5.0); Calcium 10.1 mg/dL (8.4-10.2); Potassium 5.3 mmol/L (3.5-5.1); Total Bilirubin 0.4 mg/dL (0.2-1.3)
[2018-03-20 08:13] LABS: Glucose,Whole Blood 209 mg/dL (75-99)
[2018-03-20] MEDS: CALCIUM POLYCARBOPHIL 625 MG TAB PO SCH (09:52)
[2018-03-20] MEDS: FERROUS SULFATE 325 MG TAB PO SCH (09:53)
[2018-03-20] MEDS: LURASIDONE 40 MG TAB PO SCH (09:53)
[2018-03-20] MEDS: DOXYCYCLINE MONOHYDRATE 100 MG CAPSULE PO SCH ×2 (09:53→21:48)
[2018-03-20] MEDS: POTASSIUM CHLORIDE ER 10 MEQ TAB.ER.PRT PO SCH (09:54)
[2018-03-20] MEDS: DOCUSATE 100 MG CAP PO SCH ×2 (09:54→21:47)
[2018-03-20 11:38] LABS: Glucose,Whole Blood 201 mg/dL (75-99)
[2018-03-20] MEDS: METOPROLOL TARTRATE 25 MG TAB PO SCH ×2 (11:48→21:49)
[2018-03-20] MEDS: INSULIN ASPART 100 UNIT/ML 1 ML 10 ML VIAL SQ SCH ×3 (12:09→21:47)
--- NOTE | 2018-03-20 12:19 | P.PN ---
Subjective Progress Note Date: 03/20/18 This is a 67-year-old female, patient of [facility]. Patient seen and evaluated in the ER. Patient has had previous history of myocardial infarction, coronary artery disease with 4 cardiac stents, paroxysmal atrial fibrillation, hypertension hyperlipidemia and former smoker. She also has a history of COPD hypothyroidism CVA vascular dementia, trigeminal neuralgia, obstructive sleep apnea, bowel syndrome, peripheral arterial disease with stents in the lower extremities and bipolar. Patient has a history of degenerative disc disease in the spine and was scheduled to have a epidural completed with pain management in the outpatient setting. Daughter was present with patient. Patient was in the room and getting undressed and ready for the procedure she reports feeling very anxious and becoming short of breath and having chest pain across the chest. Saw blood pressure was elevated at 180. At the pain management office she received 3 nitro and aspirin and a dose of labetalol. This helped relieve patient's chest pain. She was then brought into the emergency room for further evaluation in regards to her chest pain. EKG showing sinus rhythm with PACs and right bundle audra block. First troponin was negative. Patient's last heart catheterization was in December 2017 which showed patent stent in the proximal right coronary artery, mild disease involving the ostial left main, mild disease involving the left circumflex and patent stent in the mid LAD. At that time cardiology recommended maximize medical treatment. Chest x-ray shows no acute cardiopulmonary disease. Does reveal known underlying pulmonary edema on pulmonary fibrosis and a known right upper lobe pulmonary nodule. Patient's daughter reports that her mother is unable to participate in some of the day programs that she used to due to her pain. She will prefer if patient could receive the epidural injection for her back pain before restarting the Xarelto. Patient is also reporting during this chest pain episode that she had right-sided numbness which she's had on previous strokes. She has been off of her Xarelto for 3 days for the spinal epidural procedure. Patient admits to some nausea. Denies any vomiting bowel movement changes or urinary symptoms. Denies any cough fever or chills or sweats. Denies any facial droop or slurred speech. She also reports having some right lower abdominal pain. Daughter reports this is consistent with patient's history of IBS. Patient also has a history of chronic hypoxic respiratory failure and has been on 3 L oxygen at home. Cardiology and pain service has been consulted. Patient daughter reports that her mother had been on Ativan and Chevak previously after her stay at [facility] in December. However, her PCP will not refill his medications and wanted her mother to stop taking them. She has only been using Tylenol for pain control. On 03/16/2018 patient is currently resting. Planning for epidural injection this afternoon. Ultrasound of abdomen completed showing no acute abdominal process. Per cardiology 2-D echo has been ordered and aspirin has been decreased to [address] of abdomen and pelvis has been ordered due to recent weight loss. Amalyse and lipase levels have been ordered. Pulmonary services have been consulted. 03/17/2018 patient is status post lumbar epidural injection. She is reporting improvement in her back pain and chest pain. Xarelto will be resumed today. She was also started on doxycycline and prednisone per pulmonary service for bronchitis. Patient reports a good appetite. Computed tomography scan of the abdomen shows no acute changes. Abdominal ultrasound was negative. Patient was hypotensive this morning she is on Midodrine and repeat blood pressure show improvement 109/62. Patient denies any nausea or vomiting. Denies any bowel movement changes or urinary symptoms. She reports that she starting to feel better. 03/18/2018 patient reports improvement in her back pain. She is still having some chest pains that are reproducible with palpation. Xarelto was restarted yesterday. Patient worked with physical therapy this morning and became very short of breath. Oxygen had been increased to 10 L. She was able to recover and then option came back down to 6 L at 96%. She has been on 3 L of oxygen at home. She is complaining of constipation bowel movements been very small. She had a slight increase in her liver enzymes AST 74 and ALT 84 Lipitor discontinued. Patient has been cleared by cardiology and pulmonary service for discharge. on 03/19/2018 patient is alert and oriented in no distress, she reports improvement in her back pain. Patient worked with physical therapy this morning and became very short of breath. Oxygen had been increased to 10 L. yesterday She was able to recover and then option came back down to 6 L at 96%. Now she is on BiPAP She has been on 3 L of oxygen at home. She is complaining of constipation otherwise she denies any complaints. On 03/20/2018 patient is alert and oriented in no apparent distress she was seen and examined on 6 floor she was refusing BiPAP yesterday and now she is maintained on high flow oxygen she denies any chest pain or shortness of breath she denies any palpitation or cough there is no nausea or vomiting no abdominal pain no diarrhea and no urinary symptoms. Objective - Vital Signs Vital signs: Vital Signs Temp 98.2 F 03/20/18 11:45 Pulse 61 03/20/18 11:45 Resp 20 03/20/18 11:45 BP 127/84 03/20/18 11:45 Pulse Ox 96 03/20/18 11:45 Intake & Output 03/19/18 03/20/18 03/20/18 18:59 06:59 18:59 Intake Total 610 250 Balance 610 250 Weight 73.5 kg Intake: IV 30 10 Invasive Line 2 30 10 Oral 580 240 Other: Voiding Method Bedside Commode Bedside Commode Bedside Commode # Voids 3 4 - Exam Head normocephalic and atraumatic Neck supple no JVD no goiter Lungs distant lung sounds bilaterally no audible wheezing Heart regular rate and rhythm S1-S2, no rub or gallop Abdomen is soft nontender nondistended positive bowel sounds no hepatosplenomegaly Extremities no edema no cyanosis or clubbing Neuro alert and orientated to 3 no gross focal deficit - Labs CBC & Chem 7: 03/20/18 06:34 03/20/18 06:34 Labs: Abnormal Lab Results - Last 24 Hours (Table) 03/20/18 03/20/18 03/20/18 Range/Units 06:34 06:34 07:52 WBC 15.2 H (3.8-10.6) k/uL MCHC 30.2 L (31.0-37.0) g/dL RDW 17.2 H (11.5-15.5) % Neutrophils # 13.3 H (1.3-7.7) k/uL Sodium 135 L (137-145) mmol/L Potassium 5.3 H (3.5-5.1) mmol/L Chloride 97 L (98-107) mmol/L BUN 19 H (7-17) mg/dL Glucose 147 H (74-99) mg/dL POC Glucose (mg/dL) 209 H (75-99) mg/dL ALT 71 H (9-52) U/L 03/20/18 Range/Units 11:36 WBC (3.8-10.6) k/uL MCHC (31.0-37.0) g/dL RDW (11.5-15.5) % Neutrophils # (1.3-7.7) k/uL Sodium (137-145) mmol/L Potassium (3.5-5.1) mmol/L Chloride (98-107) mmol/L BUN (7-17) mg/dL Glucose (74-99) mg/dL POC Glucose (mg/dL) 201 H (75-99) mg/dL ALT (9-52) U/L Assessment and Plan Plan: 1. Chest pain: EKG sinus rhythm with PACs and right bundle audra block. Cardiac enzymes negative 3 sets. Patient seen by cardiology echo showing an EF of 50-55%. They've decreased aspirin to 81 mg daily. No intervention recommended at this time. Patient denies any chest pain today. 2. Chronic lower back pain with degenerative disc disease. Status post lumbar epidural and injection. Back pain improved. Continue Chevak 3. Right-sided numbness during the chest pain episode. Patient has been off of Xarelto for 3 days. Computed tomography scan of the brain showing right frontal lobe encephalomalcia without change compared to old exam. no acute intracranial abnormality. Patient is back on Xarelto at this time. 4. Right lower quadrant abdominal pain. Abdominal ultrasound and computed tomography scan the abdomen showing no acute abnormality. Amylase lipase and LFTs all within normal range. Urinalysis negative no evidence of UTI 5. History of paroxysmal atrial fibrillation on amiodarone. Continue Xarelto 6. Essential hypertension. Elevated blood pressure outpatient receiving extra labetalol. Patient usually has hypotension and is on midodrine 7. Right upper lobe pulmonary nodule and possible pulmonary fibrosis being followed outpatient with pulmonary service 8. Acute on chronic Chronic hypoxic respiratory failure home O2 dependent usually uses 3 L of oxygen. Patient currently requiring 6 L. Possibly related to her bronchitis and COPD. Patient currently on doxycycline and prednisone, today patient is requiring BiPAP, pulmonary doctor tenderness and S/P Rodriguez are following 9. History of COPD no evidence of exacerbation at this time 10. History of CVA 11. history of myocardial infarction and coronary artery disease with previous cardiac stents 12. History of bipolar continue Latuda and Trileptal 13. History of Renal cancer status post right nephrectomy 14. Acute tracheobronchitis: Seen by pulmonary service started on doxycycline and prednisone 15. Mildly elevated LFTs. Discontinue Lipitor. Repeat labs in a.m. 16. Constipation start Colace Hep-Lock IV. Encouraged patient to increase activity. Continue PT OT GI prophylaxis Protonix and DVT prophylaxis Xarelto
--- NOTE | 2018-03-20 13:04 | P.PN ---
Subjective Mrs Mckeon is seen and examined resting comfortably in bed in no acute distress. She denies any further symptoms of chest or back pain. She also denies shortness of breath, dizziness or palpitations. Telemetry tracings unremarkable and she is maintaining sinus mechanism. Laboratory data reviewed, WBC 15.2, hemoglobin 13.5, platelets 341, sodium 135, potassium 5.3, creatinine 0.8. Blood pressure 127/84 heart rate 61 afebrile maintaining oxygen saturation on room air. Objective - Vital Signs Vital signs: Vital Signs Temp 98.2 F 03/20/18 11:45 Pulse 61 03/20/18 11:45 Resp 20 03/20/18 11:45 BP 127/84 03/20/18 11:45 Pulse Ox 96 03/20/18 11:45 Intake & Output 03/19/18 03/20/18 03/20/18 18:59 06:59 18:59 Intake Total 610 250 Balance 610 250 Weight 73.5 kg Intake: IV 30 10 Invasive Line 2 30 10 Oral 580 240 Other: Voiding Method Bedside Commode Bedside Commode Bedside Commode # Voids 3 4 - Exam GENERAL: Well-appearing, well-nourished and in no acute distress. NECK: Supple without JVD or thyromegaly. LUNGS: Breath sounds clear to auscultation bilaterally. Respiration equal and unlabored. No wheezes, rales or rhonchi. HEART: Regular rate and rhythm with systolic ejection murmur at the base, no rubs or gallops. S1 and S2 heard. EXTREMITIES: Normal range of motion, no edema. No clubbing or cyanosis. Peripheral pulses intact. - Labs CBC & Chem 7: 03/20/18 06:34 03/20/18 06:34 Labs: Abnormal Lab Results - Last 24 Hours (Table) 03/20/18 03/20/18 03/20/18 Range/Units 06:34 06:34 07:52 WBC 15.2 H (3.8-10.6) k/uL MCHC 30.2 L (31.0-37.0) g/dL RDW 17.2 H (11.5-15.5) % Neutrophils # 13.3 H (1.3-7.7) k/uL Sodium 135 L (137-145) mmol/L Potassium 5.3 H (3.5-5.1) mmol/L Chloride 97 L (98-107) mmol/L BUN 19 H (7-17) mg/dL Glucose 147 H (74-99) mg/dL POC Glucose (mg/dL) 209 H (75-99) mg/dL ALT 71 H (9-52) U/L 03/20/18 Range/Units 11:36 WBC (3.8-10.6) k/uL MCHC (31.0-37.0) g/dL RDW (11.5-15.5) % Neutrophils # (1.3-7.7) k/uL Sodium (137-145) mmol/L Potassium (3.5-5.1) mmol/L Chloride (98-107) mmol/L BUN (7-17) mg/dL Glucose (74-99) mg/dL POC Glucose (mg/dL) 201 H (75-99) mg/dL ALT (9-52) U/L Assessment and Plan Assessment: ASSESSMENT Chest pain, atypical. An acute coronary event has been ruled out. History of coronary artery disease status post percutaneous revascularization. Recent cardiac catheterization revealed no evidence of progression of disease Paroxysmal atrial fibrillation on long-term anticoagulation currently maintaining sinus mechanism Back pain COPD Peripheral vascular disease PLAN Stable from a cardiac perspective on current medical regimen. 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 We will continue to follow as needed. Please free to call if further questions or concerns. Nurse Practitioner note has been reviewed, I agree with a documented findings and plan of care. Patient was seen and examined.
--- NOTE | 2018-03-20 14:00 | PN ---
PROGRESS NOTE DATE OF SERVICE: 03/20/2018 She was seen on March 20, 2018. She has been hemodynamically stable. She has less oxygen requirements. She is on high-flow nasal cannula and not on BiPAP. PHYSICAL EXAMINATION: Respiratory rate is 20, pulse rate 61, temperature 98.2, blood pressure 127/84. HEENT reveals pupils are equal. Chest reveals crackles more in the left base than in the right. No wheeze. Cardiovascular system is S1, S2. ABDOMEN: Soft. There is no pedal edema. LABS: Reviewed. IMPRESSION: At this time: 1. Congestive heart failure. 2. Acute on chronic respiratory failure. 3. Asthma with chronic obstructive pulmonary disease with acute exacerbation. Continue supplemental oxygen. Use BiPAP as needed. Continue IV steroids bronchodilators. Attempt to keep her in negative fluid balance. Increase her activity level. Her prognosis is guarded. MMODL / LYNNN: [id number] /
[2018-03-20] MEDS: AMIODARONE 100 MG TAB PO SCH (14:07)
[2018-03-20 16:49] LABS: Glucose,Whole Blood 199 mg/dL (75-99)
[2018-03-20] MEDS: RIVAROXABAN 15 MG TAB PO SCH (17:29)
[2018-03-20] MEDS: MONTELUKAST 10 MG TAB PO SCH (21:47)
[2018-03-20 21:48] LABS: Glucose,Whole Blood 226 mg/dL (75-99)
[2018-03-20] MEDS: MELATONIN 3 MG TABLET PO SCH (21:48)
[2018-03-20] MEDS: PARoxetine 10 MG TAB PO SCH (21:48)
[2018-03-20] MEDS: OXcarbazepine 150 MG TAB PO SCH (21:49)
[2018-03-21] MEDS: methylPREDNISolone SOD SUCCI 125 MG/2 ML VIAL IV SCH ×5 (00:27→23:50)
[2018-03-21] MEDS: NITROGLYCERIN OINT 1 INCH/GM PACKET TOPICAL SCH ×4 (00:28→23:50)
[2018-03-21] MEDS: LEVOTHYROXINE 100 MCG TAB PO SCH (06:15)
[2018-03-21] MEDS: MIDODRINE 5 MG TAB PO SCH ×3 (06:15→16:42)
[2018-03-21] MEDS: PANTOPRAZOLE 40 MG TABLET PO SCH (06:16)
[2018-03-21 06:39] LABS: Glucose,Whole Blood 150 mg/dL (75-99)
[2018-03-21 06:43] LABS: Anisocytosis Slight; Basophils % (A) 0 %; Eosinophils % (A) 0 %; HCT 46.7 % (34.0-46.0); HGB 14.3 gm/dL (11.4-16.0); Hypochromasia Slight; Lymphocytes # (A) 1.1 k/uL (1.0-4.8); Lymphocytes % (A) 7 %; MCH 25.8 pg (25.0-35.0); MCHC 30.6 g/dL (31.0-37.0); MCV 84.2 fL (80.0-100.0); Mean Platelet Volume 6.5; Monocytes # (A) 0.6 k/uL (0-1.0); Monocytes % (A) 4 %; Neutrophils # (A) 14.1 k/uL (1.3-7.7); Neutrophils % (A) 89 %; Platelet Count 391 k/uL (150-450); RBC 5.54 m/uL (3.80-5.40); RDW 17.1 % (11.5-15.5); WBC 15.9 k/uL (3.8-10.6)
[2018-03-21] MEDS: INSULIN ASPART 100 UNIT/ML 1 ML 10 ML VIAL SQ SCH ×4 (06:45→22:00)
[2018-03-21 06:46] LABS: Calcium 9.9 mg/dL (8.4-10.2); Potassium 4.8 mmol/L (3.5-5.1); Total Bilirubin 0.3 mg/dL (0.2-1.3); Total Protein 6.5 g/dL (6.3-8.2)
[2018-03-21] MEDS: SYMBICORT 80-4.5 MCG INHALER INHALATION SCH (07:56)
[2018-03-21] MEDS: DOXYCYCLINE MONOHYDRATE 100 MG CAPSULE PO SCH ×2 (08:06→22:01)
[2018-03-21] MEDS: DOCUSATE 100 MG CAP PO SCH ×2 (08:06→22:01)
[2018-03-21] MEDS: CALCIUM POLYCARBOPHIL 625 MG TAB PO SCH (08:06)
[2018-03-21] MEDS: LURASIDONE 40 MG TAB PO SCH (08:07)
[2018-03-21] MEDS: FERROUS SULFATE 325 MG TAB PO SCH (08:07)
[2018-03-21] MEDS: METOPROLOL TARTRATE 25 MG TAB PO SCH ×2 (08:07→22:01)
[2018-03-21] MEDS: POTASSIUM CHLORIDE ER 10 MEQ TAB.ER.PRT PO SCH (08:08)
[2018-03-21] MEDS: AMIODARONE 100 MG TAB PO SCH (08:24)
--- NOTE | 2018-03-21 10:49 | P.PN ---
<Samantha Xiao E - Last Filed: 03/21/18 10:39> Subjective Progress Note Date: 03/21/18 History of present illness: This is a 67-year-old female patient being seen examined and evaluated today on rounds for consultation. This patient was previously going for an lumbar epidural back injection when she became short of breath and had some chest pain. She was transferred over to [facility] emergency room for evaluation and treatment. Patient was noted to be slightly hypertensive with a systolic pressure in the 180s. She did receive 3 doses of nitro and aspirin as well as labetalol that did have positive results in relieving the patient's chest pain. She also had an EKG which did show showing sinus rhythm with PACs and a) bundle-branch block. Her troponins have been negative. She did have a heart catheterization in December 2017 with a stent to the proximal right coronary artery with mild disease involving the left main and mild disease involving the left circumflex she also had a stent in the mid LAD. She did have a chest x- ray that was negative for any acute cardiopulmonary process. She does have an underlying history of pulmonary edema and pulmonary fibrosis as well as a known right upper lobe pulmonary nodule.. The patient recently stopped her Xarelto for 3 days prior to going for her back injection. She did have her lumbar injection today. She also complained of some diffuse abdominal pain which she has had chronically in the past for her IBS. She also also known to have chronic hypoxic respiratory failure and uses 3-4 L of supplemental oxygen at home. Upon examination she is resting up in bed on 3-4 L of oxygen. Does have some shortness of breath with exertion and activity. Denies any cough or congestion or sputum production. She has been using her Symbicort at home. She is afebrile no further complaints. All labs and reports have been reviewed. Interval History: 03/17/18- patient seen seen examined and evaluated today on rounds. She is resting up in bed on 6 L of supplemental oxygen via nasal cannula. She does have shortness of breath with exertion and activity. She has had a cough with some congestion and yellow sputum today. All labs and reports have been reviewed. She continues to be worked up by primary services for abdominal discomfort. 03/18/2018: Patient seen and examined. Patient states she is feeling little bit better overall. She is complaining of continued chronic back pain. Her O2 saturation is 92% on 6 L nasal cannula. We will decrease her to 5 L nasal cannula and monitor her saturations closely. The patient denies shortness of breath, fevers, chills, cough 03/19/18-03/20/18- Please see Dr TIANNA Hyman notes 03/21/18- patient is being seen examined and evaluated today on rounds. She is resting up in bedside chair on high flow airflow. She is at 35 L and FiO2 of 35 %. She feels her breathing has been okay today. Objective - Vital Signs Vital signs: Vital Signs Temp 97.2 F L 03/21/18 07:50 Pulse 66 03/21/18 07:50 Resp 18 03/21/18 07:50 BP 136/62 03/21/18 07:50 Pulse Ox 96 03/21/18 07:57 Intake & Output 03/20/18 03/21/18 03/21/18 18:59 06:59 18:59 Intake Total 750 490 480 Output Total 600 Balance 150 490 480 Weight 77.3 kg Intake: IV 30 10 Invasive Line 2 30 10 Oral 720 480 480 Output: Urine 600 Other: Voiding Method Bedside Commode Bedside Commode Bedside Commode # Voids 1 - Exam GENERAL EXAM: Alert, active, comfortable in no apparent distress. HEAD: Normocephalic. EYES: Normal reaction of pupils, equal size. NOSE: Clear with pink turbinates. THROAT: No erythema or exudates. NECK: No masses, no JVD. CHEST: No chest wall deformity. LUNGS: Equal air entry with no crackles, wheeze, rhonchi or dullness. Bases slightly diminished CVS: S1 and S2 normal with no audible mumurs, regular rhythm. ABDOMEN: No hepatosplenomegaly, normal bowel sounds, no guarding or rigidity. EXTREMITIES: No edema noted, pedal pulses palpable. CENTRAL NERVOUS SYSTEM: No focal deficits, tone is normal in all 4 extremities. - Labs CBC & Chem 7: 03/21/18 05:55 03/21/18 05:55 Labs: Abnormal Lab Results - Last 24 Hours (Table) 03/20/18 03/20/18 03/20/18 Range/Units 11:36 16:47 21:36 WBC (3.8-10.6) k/uL RBC (3.80-5.40) m/uL Hct (34.0-46.0) % MCHC (31.0-37.0) g/dL RDW (11.5-15.5) % Neutrophils # (1.3-7.7) k/uL Sodium (137-145) mmol/L Chloride (98-107) mmol/L BUN (7-17) mg/dL Glucose (74-99) mg/dL POC Glucose (mg/dL) 201 H 199 H 226 H (75-99) mg/dL ALT (9-52) U/L 03/21/18 03/21/18 03/21/18 Range/Units 05:55 05:55 06:37 WBC 15.9 H (3.8-10.6) k/uL RBC 5.54 H (3.80-5.40) m/uL Hct 46.7 H (34.0-46.0) % MCHC 30.6 L (31.0-37.0) g/dL RDW 17.1 H (11.5-15.5) % Neutrophils # 14.1 H (1.3-7.7) k/uL Sodium 133 L (137-145) mmol/L Chloride 94 L (98-107) mmol/L BUN 22 H (7-17) mg/dL Glucose 146 H (74-99) mg/dL POC Glucose (mg/dL) 150 H (75-99) mg/dL ALT 68 H (9-52) U/L Assessment and Plan Assessment: Assessment Tracheobronchitis Acute on Chronic hypoxic respiratory failure requiring supplemental oxygen, patient did require up to 5 L in the ER Known right upper lobe pulmonary nodule with pulmonary fibrosis Chest pain COPD not acutely exacerbated Chronic lower back pain with degenerative disc disease Generalized abdominal pain History of A. fib History of hypertension Status post lumbar epidural injection Plan Medications have been reviewed and will be continued as ordered. Continue antibiotics and steroids Continue with pulmonary hygiene, coughing and deep breathing exercises, and supportive care. Continue to wean down high airflow Supplemental oxygen to maintain oxygen saturations of 92% or better. Initiate and encourage incentive spirometer She should continue with her Symbicort Continue nebulizer treatments as needed. Cardiology on consult Echocardiogram reviewed EF 50-55% with RVSP of 49.5 GI and DVT prophylaxis. Increase activity as tolerated PT and OT We will continue to monitor labs/results and adjust treatment as necessary. Further recommendations pending. I performed an examination of the patient and discussed their management with the nurse practitioner. I have reviewed the nurse practitioner's note and agree with the documented findings and plan of care. <Florinda Hutchinson - Last Filed: 03/21/18 15:13> Objective - Vital Signs Vital signs: Vital Signs Temp 98.2 F 03/21/18 11:15 Pulse 52 L 03/21/18 11:15 Resp 18 03/21/18 11:15 BP 132/78 03/21/18 11:15 Pulse Ox 95 03/21/18 11:15 Intake & Output 03/20/18 03/21/18 03/21/18 18:59 06:59 18:59 Intake Total 750 490 720 Output Total 600 Balance 150 490 720 Weight 77.3 kg Intake: IV 30 10 Invasive Line 2 30 10 Oral 720 480 720 Output: Urine 600 Other: Voiding Method Bedside Commode Bedside Commode Bedside Commode # Voids 1 1 - Labs CBC & Chem 7: 03/21/18 05:55 03/21/18 05:55 Labs: Abnormal Lab Results - Last 24 Hours (Table) 03/20/18 03/20/18 03/21/18 Range/Units 16:47 21:36 05:55 WBC 15.9 H (3.8-10.6) k/uL RBC 5.54 H (3.80-5.40) m/uL Hct 46.7 H (34.0-46.0) % MCHC 30.6 L (31.0-37.0) g/dL RDW 17.1 H (11.5-15.5) % Neutrophils # 14.1 H (1.3-7.7) k/uL Sodium (137-145) mmol/L Chloride (98-107) mmol/L BUN (7-17) mg/dL Glucose (74-99) mg/dL POC Glucose (mg/dL) 199 H 226 H (75-99) mg/dL ALT (9-52) U/L 03/21/18 03/21/18 03/21/18 Range/Units 05:55 06:37 11:37 WBC (3.8-10.6) k/uL RBC (3.80-5.40) m/uL Hct (34.0-46.0) % MCHC (31.0-37.0) g/dL RDW (11.5-15.5) % Neutrophils # (1.3-7.7) k/uL Sodium 133 L (137-145) mmol/L Chloride 94 L (98-107) mmol/L BUN 22 H (7-17) mg/dL Glucose 146 H (74-99) mg/dL POC Glucose (mg/dL) 150 H 133 H (75-99) mg/dL ALT 68 H (9-52) U/L Assessment and Plan Assessment: Patient seen and examined. Patient states she is feeling better today. She is on 30 peptide percent FiO2 on high flow high humidity nasal cannula. The patient is also on Solu-Medrol and doxycycline. She states she is doing better with her breathing. We will order bubble study to assess for possible shunt. The patient can be titrated down to nasal cannula. Will order CTA as well. Discontinue Symbicort. Add Pulmicort and Perforomist. Continue Duonebs. ~Florinda Hutchinson DO
--- NOTE | 2018-03-21 11:32 | CDI ---
Last Revision, July 2017 Documentation Clarification Form Date: 03/21/2018 11:29:00 AM From: Sandra HollisRITESH, CCDS Admit Date: 03/17/2018 3:41:00 PM Patient Name: Kathy Mckeon Visit Number: [id number] Discharge Date: ATTENTION: The Clinical Documentation Specialists (CDI) and [facility] Coding Staff appreciate your assistance in clarifying documentation. Please respond to the clarification below the line at the bottom and electronically sign. The CDI & [facility] Coding staff will review the response and follow-up if needed. Please note: Queries are made part of the Legal Health Record. If you have any questions, please contact the author of this message via ITS. Dr. Abelardo Kelly: 67 yo female with chronic lower back pain presented to pain management office for a lumbar epidural & injection. Prior to the injection the patient became SOB with chest pain, elevated BP >180, (patient is normally hypotensive). Acute coronary event ruled out by cardiology. No COPD exacerbation per pulmonary, diagnosed with Acute on Chronic Hypoxic Respiratory Failure on chronic home O2. Patient history/risk factors: CAD with multiple coronary stents, COPD, Chronic hypoxic respiratory failure on home O2 3Lnc & former smoker. Clinical Indicators: Chest pain, nausea, diaphoresis. VS: T 97.2*, P 64 (irregular), R 22 (SOB), BP 106/59, PO 86 3Lnc - 93 6Lnc. Bipap on 03/18. Lab findings: WBC 11.3, Neut 7.8, CO2 20, UA: clear, culture negative. Radiology findings: CXR: Known pulmonary edema & fibrosis w/RUL nodule. EKG: R 70 nsr w/PACs & RBBB Treatment: Nitro sl, ASA, IV Ms, IV Zofran, IV fluids, Lumbar epidural injection per pain management w/relief, O2 3 - 6L including high flow & BiPAP. In your professional opinion, can you please clarify the cause of the patient's chest pain on arrival? CAD with or without Angina w/specific type if known Acute on chronic hypoxic respiratory failure Acute tracheobronchitis Other, please specify Unable to determine Please continue to document in your progress notes and discharge summary in order to capture severity of illness and risk of mortality. Include clinical findings that support your diagnosis. MTDD
[2018-03-21 11:40] LABS: Glucose,Whole Blood 133 mg/dL (75-99)
--- NOTE | 2018-03-21 13:10 | P.PN ---
Subjective Progress Note Date: 03/21/18 This is a 67-year-old female, patient of [facility]. Patient seen and evaluated in the ER. Patient has had previous history of myocardial infarction, coronary artery disease with 4 cardiac stents, paroxysmal atrial fibrillation, hypertension hyperlipidemia and former smoker. She also has a history of COPD hypothyroidism CVA vascular dementia, trigeminal neuralgia, obstructive sleep apnea, bowel syndrome, peripheral arterial disease with stents in the lower extremities and bipolar. Patient has a history of degenerative disc disease in the spine and was scheduled to have a epidural completed with pain management in the outpatient setting. Daughter was present with patient. Patient was in the room and getting undressed and ready for the procedure she reports feeling very anxious and becoming short of breath and having chest pain across the chest. Saw blood pressure was elevated at 180. At the pain management office she received 3 nitro and aspirin and a dose of labetalol. This helped relieve patient's chest pain. She was then brought into the emergency room for further evaluation in regards to her chest pain. EKG showing sinus rhythm with PACs and right bundle audra block. First troponin was negative. Patient's last heart catheterization was in December 2017 which showed patent stent in the proximal right coronary artery, mild disease involving the ostial left main, mild disease involving the left circumflex and patent stent in the mid LAD. At that time cardiology recommended maximize medical treatment. Chest x-ray shows no acute cardiopulmonary disease. Does reveal known underlying pulmonary edema on pulmonary fibrosis and a known right upper lobe pulmonary nodule. Patient's daughter reports that her mother is unable to participate in some of the day programs that she used to due to her pain. She will prefer if patient could receive the epidural injection for her back pain before restarting the Xarelto. Patient is also reporting during this chest pain episode that she had right-sided numbness which she's had on previous strokes. She has been off of her Xarelto for 3 days for the spinal epidural procedure. Patient admits to some nausea. Denies any vomiting bowel movement changes or urinary symptoms. Denies any cough fever or chills or sweats. Denies any facial droop or slurred speech. She also reports having some right lower abdominal pain. Daughter reports this is consistent with patient's history of IBS. Patient also has a history of chronic hypoxic respiratory failure and has been on 3 L oxygen at home. Cardiology and pain service has been consulted. Patient daughter reports that her mother had been on Ativan and [place] previously after her stay at [facility] in December. However, her PCP will not refill his medications and wanted her mother to stop taking them. She has only been using Tylenol for pain control. On 03/16/2018 patient is currently resting. Planning for epidural injection this afternoon. Ultrasound of abdomen completed showing no acute abdominal process. Per cardiology 2-D echo has been ordered and aspirin has been decreased to [address] of abdomen and pelvis has been ordered due to recent weight loss. Amalyse and lipase levels have been ordered. Pulmonary services have been consulted. 03/17/2018 patient is status post lumbar epidural injection. She is reporting improvement in her back pain and chest pain. Xarelto will be resumed today. She was also started on doxycycline and prednisone per pulmonary service for bronchitis. Patient reports a good appetite. Computed tomography scan of the abdomen shows no acute changes. Abdominal ultrasound was negative. Patient was hypotensive this morning she is on Midodrine and repeat blood pressure show improvement 109/62. Patient denies any nausea or vomiting. Denies any bowel movement changes or urinary symptoms. She reports that she starting to feel better. 03/18/2018 patient reports improvement in her back pain. She is still having some chest pains that are reproducible with palpation. Xarelto was restarted yesterday. Patient worked with physical therapy this morning and became very short of breath. Oxygen had been increased to 10 L. She was able to recover and then option came back down to 6 L at 96%. She has been on 3 L of oxygen at home. She is complaining of constipation bowel movements been very small. She had a slight increase in her liver enzymes AST 74 and ALT 84 Lipitor discontinued. Patient has been cleared by cardiology and pulmonary service for discharge on 03/19/2018 patient is alert and oriented in no distress, she reports improvement in her back pain. Patient worked with physical therapy this morning and became very short of breath. Oxygen had been increased to 10 L. yesterday She was able to recover and then option came back down to 6 L at 96%. Now she is on BiPAP She has been on 3 L of oxygen at home. She is complaining of constipation otherwise she denies any complaints. On 03/20/2018 patient is alert and oriented in no apparent distress she was seen and examined on 6 floor she was refusing BiPAP yesterday and now she is maintained on high flow oxygen she denies any chest pain or shortness of breath she denies any palpitation or cough there is no nausea or vomiting no abdominal pain no diarrhea and no urinary symptoms. 03/21/2018 patient still requiring high flow oxygen via AIRVO at 35L. patient reports shortness of breath when she was getting cleaned up earlier this morning. She denies any chest pains. Denies any nausea or vomiting. Denies bowel movement changes or urinary symptoms. She was started on Solu-Medrol over the weekend. Objective - Vital Signs Vital signs: Vital Signs Temp 98.2 F 03/21/18 11:15 Pulse 52 L 03/21/18 11:15 Resp 18 03/21/18 11:15 BP 132/78 03/21/18 11:15 Pulse Ox 95 03/21/18 11:15 Intake & Output 03/20/18 03/21/18 03/21/18 18:59 06:59 18:59 Intake Total 750 490 480 Output Total 600 Balance 150 490 480 Weight 77.3 kg Intake: IV 30 10 Invasive Line 2 30 10 Oral 720 480 480 Output: Urine 600 Other: Voiding Method Bedside Commode Bedside Commode Bedside Commode # Voids 1 1 - Exam Head normocephalic Neck supple Lungs crackles at bases Heart regular rate and rhythm S1-S2, no rub or gallop Abdomen is soft nontender nondistended positive bowel sounds no hepatosplenomegaly Extremities no edema Neuro alert and orientated to 3 - Labs CBC & Chem 7: 03/21/18 05:55 03/21/18 05:55 Labs: Abnormal Lab Results - Last 24 Hours (Table) 03/20/18 03/20/18 03/21/18 Range/Units 16:47 21:36 05:55 WBC 15.9 H (3.8-10.6) k/uL RBC 5.54 H (3.80-5.40) m/uL Hct 46.7 H (34.0-46.0) % MCHC 30.6 L (31.0-37.0) g/dL RDW 17.1 H (11.5-15.5) % Neutrophils # 14.1 H (1.3-7.7) k/uL Sodium (137-145) mmol/L Chloride (98-107) mmol/L BUN (7-17) mg/dL Glucose (74-99) mg/dL POC Glucose (mg/dL) 199 H 226 H (75-99) mg/dL ALT (9-52) U/L 03/21/18 03/21/18 03/21/18 Range/Units 05:55 06:37 11:37 WBC (3.8-10.6) k/uL RBC (3.80-5.40) m/uL Hct (34.0-46.0) % MCHC (31.0-37.0) g/dL RDW (11.5-15.5) % Neutrophils # (1.3-7.7) k/uL Sodium 133 L (137-145) mmol/L Chloride 94 L (98-107) mmol/L BUN 22 H (7-17) mg/dL Glucose 146 H (74-99) mg/dL POC Glucose (mg/dL) 150 H 133 H (75-99) mg/dL ALT 68 H (9-52) U/L Assessment and Plan Assessment: 1. Chest pain: Likely muscle skeletal secondary to the tracheobronchitis. EKG sinus rhythm with PACs and right bundle audra block. Cardiac enzymes negative 3 sets. Patient seen by cardiology echo showing an EF of 50-55%. They've decreased aspirin to 81 mg daily. Cardiology has signed off 2. Chronic lower back pain with degenerative disc disease. Status post lumbar epidural and injection. Back pain improved. Continue [place] 3. Right-sided numbness during the chest pain episode. Now resolved. Patient has been off of Xarelto for 3 days. Computed tomography scan of the brain showing right frontal lobe encephalomalcia without change compared to old exam. no acute intracranial abnormality. 4. Right lower quadrant abdominal pain. Improved. Abdominal ultrasound and computed tomography scan the abdomen showing no acute abnormality. Amylase lipase and LFTs all within normal range. Urinalysis negative no evidence of UTI 5. History of paroxysmal atrial fibrillation on amiodarone. Continue Xarelto 6. Essential hypertension. Elevated blood pressure outpatient receiving extra labetalol. Patient usually has hypotension and is on midodrine 7. Right upper lobe pulmonary nodule and possible pulmonary fibrosis being followed outpatient with pulmonary service 8. Acute on chronic Chronic hypoxic respiratory failure home O2 dependent usually uses 3 L of oxygen. Patient currently requiring 6 L. Possibly related to her bronchitis and COPD. Patient currently on doxycycline and prednisone 9. Acute COPD exacerbation: With worsening acute hypoxic respiratory failure requiring high flow oxygen. Pulmonary service is trending high flow oxygen down. 10. History of CVA 11. history of myocardial infarction and coronary artery disease with previous cardiac stents 12. History of bipolar continue Latuda and Trileptal 13. History of Renal cancer status post right nephrectomy 14. Acute tracheobronchitis: Seen by pulmonary service started on doxycycline and prednisone 15. Mildly elevated LFTs. Discontinue Lipitor. Repeat labs in a.m. 16. Constipation start Colace Hep-Lock IV. Encouraged patient to increase activity. Continue PT OT GI prophylaxis Protonix and DVT prophylaxis Xarelto I performed an examination of the patient and discussed their management with the physician Storm Chaser. I have reviewed the Physician Storm Chaser's notes and agree with the documented findings and plan of care
[2018-03-21 14:18] LABS: Hemoglobin A1C 6.2 % (4.0-6.0)
[2018-03-21 16:35] LABS: Glucose,Whole Blood 282 mg/dL (75-99)
[2018-03-21] MEDS: RIVAROXABAN 15 MG TAB PO SCH (16:42)
[2018-03-21] MEDS: IPRATROPIUM-ALBUTEROL 3 ML NEB INHALATION PRN (19:49)
[2018-03-21] MEDS ORDERED: FORMOTEROL FUMARATE 20 MCG/2 ML NEBU INHALATION SCH (20:00)
[2018-03-21] MEDS ORDERED: BUDESONIDE 0.5 MG/2 ML NEBU INHALATION SCH (20:00)
[2018-03-21 21:07] LABS: Glucose,Whole Blood 189 mg/dL (75-99)
--- NOTE | 2018-03-21 21:53 | CT ---
EXAMINATION TYPE: CT chest angio for PE with contrast and with 3-D reconstruction renderings DATE OF EXAM: 03/21/2018 COMPARISON: 01/09/2018 HISTORY: Hypoxia. CT DLP: 341.7 mGycm Automated exposure control for dose reduction was used. CONTRAST: CT Chest for pulmonary embolism performed with with IV Contrast, patient injected with 84 m L of Isovue 370. FINDINGS: LUNGS: Emphysematous changes redemonstrated. The lungs are grossly clear, there is no concerning pare nchymal mass or nodule identified. PLEURAL SPACES: There is no pleural effusion or pneumothorax seen. AIRWAYS: The tracheobronchial tree is patent. MEDIASTINUM: There is satisfactory enhancement of the pulmonary artery and its branches, there is no CT evidence for pulmonary embolism. Prominent caliber to the central pulmonary arterial tree, which c an correlate with a clinical diagnosis of pulmonary hypertension. There is mild cardiomegaly. There a re prominent left and right coronary calcifications. No pericardial effusion. Aorta is unremarkable. There are no greater than 1 cm hilar or mediastinal lymph nodes. OTHER: No additional significant abnormality is seen. IMPRESSION: 1. NEGATIVE FOR PULMONARY EMBOLISM. 2. AORTA IS UNREMARKABLE. 3. PROMINENT LEFT AND RIGHT CORONARY CALCIFICATIONS WITH MILD CARDIOMEGALY. 4. SEVERE EMPHYSEMA.
[2018-03-21] MEDS: MELATONIN 3 MG TABLET PO SCH (22:01)
[2018-03-21] MEDS: OXcarbazepine 150 MG TAB PO SCH (22:02)
[2018-03-21] MEDS: MONTELUKAST 10 MG TAB PO SCH (22:02)
[2018-03-21] MEDS: PARoxetine 10 MG TAB PO SCH (22:02)
[2018-03-21 22:20] LABS: Creatine Kinase <20 U/L (30-135)
[2018-03-21 22:33] LABS: Creatine Kinase MB 0.9 ng/mL (0.0-2.4); Troponin I 0.028 ng/mL (0.000-0.034)
[2018-03-22 05:51] LABS: Glucose,Whole Blood 140 mg/dL (75-99)
[2018-03-22] MEDS: methylPREDNISolone SOD SUCCI 125 MG/2 ML VIAL IV SCH ×2 (06:23→13:08)
[2018-03-22] MEDS: INSULIN ASPART 100 UNIT/ML 1 ML 10 ML VIAL SQ SCH ×4 (06:24→21:12)
[2018-03-22] MEDS: LEVOTHYROXINE 100 MCG TAB PO SCH (06:24)
[2018-03-22] MEDS: PANTOPRAZOLE 40 MG TABLET PO SCH (06:24)
[2018-03-22] MEDS: MIDODRINE 5 MG TAB PO SCH ×3 (06:24→16:39)
[2018-03-22 06:38] LABS: Anisocytosis Slight; Basophils % (A) 0 %; Eosinophils % (A) 0 %; HCT 49.6 % (34.0-46.0); Lymphocytes # (A) 0.8 k/uL (1.0-4.8); Lymphocytes % (A) 5 %; MCH 25.1 pg (25.0-35.0); MCHC 30.2 g/dL (31.0-37.0); MCV 83.2 fL (80.0-100.0); Mean Platelet Volume 6.7; Monocytes # (A) 0.4 k/uL (0-1.0); Monocytes % (A) 3 %; Neutrophils % (A) 91 %; Platelet Count 404 k/uL (150-450); RBC 5.96 m/uL (3.80-5.40); RDW 17.1 % (11.5-15.5); WBC 15.3 k/uL (3.8-10.6)
[2018-03-22 06:50] LABS: Albumin 3.8 g/dL (3.5-5.0); Calcium 9.9 mg/dL (8.4-10.2); Potassium 4.9 mmol/L (3.5-5.1); Total Bilirubin 0.3 mg/dL (0.2-1.3); Total Protein 6.4 g/dL (6.3-8.2)
[2018-03-22] MEDS: IPRATROPIUM-ALBUTEROL 3 ML NEB INHALATION PRN (08:51)
[2018-03-22] MEDS: CALCIUM POLYCARBOPHIL 625 MG TAB PO SCH (09:25)
[2018-03-22] MEDS: FERROUS SULFATE 325 MG TAB PO SCH (09:25)
[2018-03-22] MEDS: LURASIDONE 40 MG TAB PO SCH (09:25)
[2018-03-22] MEDS: DOCUSATE 100 MG CAP PO SCH ×2 (09:25→21:12)
[2018-03-22] MEDS: METOPROLOL TARTRATE 25 MG TAB PO SCH ×2 (09:25→21:12)
[2018-03-22] MEDS: AMIODARONE 100 MG TAB PO SCH (09:25)
[2018-03-22] MEDS: DOXYCYCLINE MONOHYDRATE 100 MG CAPSULE PO SCH ×2 (09:25→21:12)
[2018-03-22] MEDS: POTASSIUM CHLORIDE ER 10 MEQ TAB.ER.PRT PO SCH (09:26)
[2018-03-22] MEDS: NITROGLYCERIN OINT 1 INCH/GM PACKET TOPICAL SCH ×3 (09:26→23:27)
--- NOTE | 2018-03-22 10:17 | P.PN ---
<Samantha Xiao E - Last Filed: 03/22/18 10:14> Subjective Progress Note Date: 03/22/18 History of present illness: This is a 67-year-old female patient being seen examined and evaluated today on rounds for consultation. This patient was previously going for an lumbar epidural back injection when she became short of breath and had some chest pain. She was transferred over to [facility] emergency room for evaluation and treatment. Patient was noted to be slightly hypertensive with a systolic pressure in the 180s. She did receive 3 doses of nitro and aspirin as well as labetalol that did have positive results in relieving the patient's chest pain. She also had an EKG which did show showing sinus rhythm with PACs and a) bundle-branch block. Her troponins have been negative. She did have a heart catheterization in December 2017 with a stent to the proximal right coronary artery with mild disease involving the left main and mild disease involving the left circumflex she also had a stent in the mid LAD. She did have a chest x- ray that was negative for any acute cardiopulmonary process. She does have an underlying history of pulmonary edema and pulmonary fibrosis as well as a known right upper lobe pulmonary nodule.. The patient recently stopped her Xarelto for 3 days prior to going for her back injection. She did have her lumbar injection today. She also complained of some diffuse abdominal pain which she has had chronically in the past for her IBS. She also also known to have chronic hypoxic respiratory failure and uses 3-4 L of supplemental oxygen at home. Upon examination she is resting up in bed on 3-4 L of oxygen. Does have some shortness of breath with exertion and activity. Denies any cough or congestion or sputum production. She has been using her Symbicort at home. She is afebrile no further complaints. All labs and reports have been reviewed. Interval History: 03/17/18- patient seen seen examined and evaluated today on rounds. She is resting up in bed on 6 L of supplemental oxygen via nasal cannula. She does have shortness of breath with exertion and activity. She has had a cough with some congestion and yellow sputum today. All labs and reports have been reviewed. She continues to be worked up by primary services for abdominal discomfort. 03/18/2018: Patient seen and examined. Patient states she is feeling little bit better overall. She is complaining of continued chronic back pain. Her O2 saturation is 92% on 6 L nasal cannula. We will decrease her to 5 L nasal cannula and monitor her saturations closely. The patient denies shortness of breath, fevers, chills, cough 03/19/18-03/20/18- Please see Dr TIANNA Hyman notes 03/21/18- patient is being seen examined and evaluated today on rounds. She is resting up in bedside chair on high flow airflow. She is at 35 L and FiO2 of 35 %. She feels her breathing has been okay today. 03/22/18- patient is being seen examined and evaluated today on rounds. She did have a CTA yesterday which was negative for any PE E did show cardiomegaly and severe emphysema. She did undergo a bubble study and those results are pending as well. Her Symbicort was discontinued yesterday and she was put on Pulmicort and Perforomist however the patient did have a slight reaction to one of those, went into A. fib, therefore they were discontinued. We will put her back on Symbicort and add DuoNeb scheduled. We will continue to wean down her oxygen. She continues on high flow 35 L and FiO2 of 50%. Objective - Vital Signs Vital signs: Vital Signs Temp 98.4 F 03/22/18 08:00 Pulse 87 03/22/18 08:55 Resp 20 03/22/18 08:55 BP 134/78 03/22/18 08:00 Pulse Ox 98 03/22/18 08:55 Intake & Output 03/21/18 03/22/18 03/22/18 18:59 06:59 18:59 Intake Total 720 420 180 Output Total 300 Balance 720 120 180 Weight 71.4 kg Intake: Oral 720 420 180 Output: Urine 300 Other: Voiding Method Bedside Commode Bedside Commode # Voids 1 1 - Exam GENERAL EXAM: Alert, active, comfortable in no apparent distress. HEAD: Normocephalic. EYES: Normal reaction of pupils, equal size. NOSE: Clear with pink turbinates. THROAT: No erythema or exudates. NECK: No masses, no JVD. CHEST: No chest wall deformity. LUNGS: Equal air entry with no crackles, wheeze, rhonchi or dullness. Bases slightly diminished CVS: S1 and S2 normal with no audible mumurs, regular rhythm. ABDOMEN: No hepatosplenomegaly, normal bowel sounds, no guarding or rigidity. EXTREMITIES: No edema noted, pedal pulses palpable. CENTRAL NERVOUS SYSTEM: No focal deficits, tone is normal in all 4 extremities. - Labs CBC & Chem 7: 03/22/18 05:53 03/22/18 05:53 Labs: Abnormal Lab Results - Last 24 Hours (Table) 03/20/18 03/21/18 03/21/18 Range/Units 06:34 11:37 16:33 WBC (3.8-10.6) k/uL RBC (3.80-5.40) m/uL Hct (34.0-46.0) % MCHC (31.0-37.0) g/dL RDW (11.5-15.5) % Neutrophils # (1.3-7.7) k/uL Lymphocytes # (1.0-4.8) k/uL Sodium (137-145) mmol/L BUN (7-17) mg/dL Glucose (74-99) mg/dL POC Glucose (mg/dL) 133 H 282 H (75-99) mg/dL Hemoglobin A1c 6.2 H (4.0-6.0) % Total Creatine Kinase (30-135) U/L 03/21/18 03/21/18 03/22/18 Range/Units 20:55 21:50 05:50 WBC (3.8-10.6) k/uL RBC (3.80-5.40) m/uL Hct (34.0-46.0) % MCHC (31.0-37.0) g/dL RDW (11.5-15.5) % Neutrophils # (1.3-7.7) k/uL Lymphocytes # (1.0-4.8) k/uL Sodium (137-145) mmol/L BUN (7-17) mg/dL Glucose (74-99) mg/dL POC Glucose (mg/dL) 189 H 140 H (75-99) mg/dL Hemoglobin A1c (4.0-6.0) % Total Creatine Kinase <20 L (30-135) U/L 03/22/18 03/22/18 Range/Units 05:53 05:53 WBC 15.3 H (3.8-10.6) k/uL RBC 5.96 H (3.80-5.40) m/uL Hct 49.6 H (34.0-46.0) % MCHC 30.2 L (31.0-37.0) g/dL RDW 17.1 H (11.5-15.5) % Neutrophils # 14.0 H (1.3-7.7) k/uL Lymphocytes # 0.8 L (1.0-4.8) k/uL Sodium 134 L (137-145) mmol/L BUN 29 H (7-17) mg/dL Glucose 146 H (74-99) mg/dL POC Glucose (mg/dL) (75-99) mg/dL Hemoglobin A1c (4.0-6.0) % Total Creatine Kinase (30-135) U/L Assessment and Plan Assessment: Assessment Tracheobronchitis Acute on Chronic hypoxic respiratory failure requiring supplemental oxygen, patient did require up to 5 L in the ER Known right upper lobe pulmonary nodule with pulmonary fibrosis Chest pain COPD not acutely exacerbated Chronic lower back pain with degenerative disc disease Generalized abdominal pain History of A. fib History of hypertension Status post lumbar epidural injection Plan Medications have been reviewed and will be continued as ordered. Continue antibiotics and steroids Pulmicort and Perforomist were discontinued Restart Symbicort DuoNeb scheduled Bubble study pending CTA reviewed Continue with pulmonary hygiene, coughing and deep breathing exercises, and supportive care. Continue to wean down high airflow Supplemental oxygen to maintain oxygen saturations of 92% or better. Initiate and encourage incentive spirometer She should continue with her Symbicort Continue nebulizer treatments as needed. Cardiology on consult Echocardiogram reviewed EF 50-55% with RVSP of 49.5 GI and DVT prophylaxis. Increase activity as tolerated PT and OT We will continue to monitor labs/results and adjust treatment as necessary. Further recommendations pending. I performed an examination of the patient and discussed their management with the nurse practitioner. I have reviewed the nurse practitioner's note and agree with the documented findings and plan of care. <Florinda Hutchinson - Last Filed: 03/22/18 12:12> Objective - Vital Signs Vital signs: Vital Signs Temp 98.4 F 03/22/18 08:00 Pulse 87 03/22/18 08:55 Resp 20 03/22/18 08:55 BP 134/78 03/22/18 08:00 Pulse Ox 95 03/22/18 11:48 Intake & Output 03/21/18 03/22/18 03/22/18 18:59 06:59 18:59 Intake Total 720 420 180 Output Total 300 Balance 720 120 180 Weight 71.4 kg Intake: Oral 720 420 180 Output: Urine 300 Other: Voiding Method Bedside Commode Bedside Commode Bedside Commode # Voids 1 1 - Labs CBC & Chem 7: 03/22/18 05:53 03/22/18 05:53 Labs: Abnormal Lab Results - Last 24 Hours (Table) 03/20/18 03/21/18 03/21/18 Range/Units 06:34 16:33 20:55 WBC (3.8-10.6) k/uL RBC (3.80-5.40) m/uL Hct (34.0-46.0) % MCHC (31.0-37.0) g/dL RDW (11.5-15.5) % Neutrophils # (1.3-7.7) k/uL Lymphocytes # (1.0-4.8) k/uL Sodium (137-145) mmol/L BUN (7-17) mg/dL Glucose (74-99) mg/dL POC Glucose (mg/dL) 282 H 189 H (75-99) mg/dL Hemoglobin A1c 6.2 H (4.0-6.0) % Total Creatine Kinase (30-135) U/L 03/21/18 03/22/18 03/22/18 Range/Units 21:50 05:50 05:53 WBC 15.3 H (3.8-10.6) k/uL RBC 5.96 H (3.80-5.40) m/uL Hct 49.6 H (34.0-46.0) % MCHC 30.2 L (31.0-37.0) g/dL RDW 17.1 H (11.5-15.5) % Neutrophils # 14.0 H (1.3-7.7) k/uL Lymphocytes # 0.8 L (1.0-4.8) k/uL Sodium (137-145) mmol/L BUN (7-17) mg/dL Glucose (74-99) mg/dL POC Glucose (mg/dL) 140 H (75-99) mg/dL Hemoglobin A1c (4.0-6.0) % Total Creatine Kinase <20 L (30-135) U/L 03/22/18 03/22/18 Range/Units 05:53 11:37 WBC (3.8-10.6) k/uL RBC (3.80-5.40) m/uL Hct (34.0-46.0) % MCHC (31.0-37.0) g/dL RDW (11.5-15.5) % Neutrophils # (1.3-7.7) k/uL Lymphocytes # (1.0-4.8) k/uL Sodium 134 L (137-145) mmol/L BUN 29 H (7-17) mg/dL Glucose 146 H (74-99) mg/dL POC Glucose (mg/dL) 167 H (75-99) mg/dL Hemoglobin A1c (4.0-6.0) % Total Creatine Kinase (30-135) U/L Assessment and Plan Assessment: Patient seen and examined. Patient states she is feeling better today. Patient is currently on Arava oh with 43% FiO2. Her O2 saturation is 96%. The FiO2 can be titrated to maintain saturation greater than or equal to 88%. The patient's had a breathing treatment overnight and apparently went into atrial fibrillation. We will discontinue Pulmicort and continue patient's home Symbicort. Duo nebs. Solu-Medrol taper. CTA of the chest is reviewed and shows no evidence of pulmonary embolism. It does show evidence of severe emphysema. Echocardiogram with bubble study is pending. Continue PT and OT. Plan is apparently for patient to go home with home health care. ~Florinda Hutchinson DO
--- NOTE | 2018-03-22 10:25 | ECHOF ---
Referral Reason:with bubble study, rule out shunt, hypoxemia MEASUREMENTS -------- HEIGHT: 162.6 cm WEIGHT: 71.2 kg BP: FINDINGS -------- Limited Study Interatrial and interventricular septum intact. CONCLUSIONS -------- 1. Limited Study 2. Interatrial and interventricular septum intact. PRODUCTION SUPPORT SPECIALIST: Gricel Velez RDCS
--- NOTE | 2018-03-22 11:01 | P.PN ---
Subjective Progress Note Date: 03/22/18 This is a 67-year-old female, patient of [facility]. Patient seen and evaluated in the ER. Patient has had previous history of myocardial infarction, coronary artery disease with 4 cardiac stents, paroxysmal atrial fibrillation, hypertension hyperlipidemia and former smoker. She also has a history of COPD hypothyroidism CVA vascular dementia, trigeminal neuralgia, obstructive sleep apnea, bowel syndrome, peripheral arterial disease with stents in the lower extremities and bipolar. Patient has a history of degenerative disc disease in the spine and was scheduled to have a epidural completed with pain management in the outpatient setting. Daughter was present with patient. Patient was in the room and getting undressed and ready for the procedure she reports feeling very anxious and becoming short of breath and having chest pain across the chest. Saw blood pressure was elevated at 180. At the pain management office she received 3 nitro and aspirin and a dose of labetalol. This helped relieve patient's chest pain. She was then brought into the emergency room for further evaluation in regards to her chest pain. EKG showing sinus rhythm with PACs and right bundle audra block. First troponin was negative. Patient's last heart catheterization was in December 2017 which showed patent stent in the proximal right coronary artery, mild disease involving the ostial left main, mild disease involving the left circumflex and patent stent in the mid LAD. At that time cardiology recommended maximize medical treatment. Chest x-ray shows no acute cardiopulmonary disease. Does reveal known underlying pulmonary edema on pulmonary fibrosis and a known right upper lobe pulmonary nodule. Patient's daughter reports that her mother is unable to participate in some of the day programs that she used to due to her pain. She will prefer if patient could receive the epidural injection for her back pain before restarting the Xarelto. Patient is also reporting during this chest pain episode that she had right-sided numbness which she's had on previous strokes. She has been off of her Xarelto for 3 days for the spinal epidural procedure. Patient admits to some nausea. Denies any vomiting bowel movement changes or urinary symptoms. Denies any cough fever or chills or sweats. Denies any facial droop or slurred speech. She also reports having some right lower abdominal pain. Daughter reports this is consistent with patient's history of IBS. Patient also has a history of chronic hypoxic respiratory failure and has been on 3 L oxygen at home. Cardiology and pain service has been consulted. Patient daughter reports that her mother had been on Ativan and [place] previously after her stay at [facility] in December. However, her PCP will not refill his medications and wanted her mother to stop taking them. She has only been using Tylenol for pain control. On 03/16/2018 patient is currently resting. Planning for epidural injection this afternoon. Ultrasound of abdomen completed showing no acute abdominal process. Per cardiology 2-D echo has been ordered and aspirin has been decreased to [address] of abdomen and pelvis has been ordered due to recent weight loss. Amalyse and lipase levels have been ordered. Pulmonary services have been consulted. 03/17/2018 patient is status post lumbar epidural injection. She is reporting improvement in her back pain and chest pain. Xarelto will be resumed today. She was also started on doxycycline and prednisone per pulmonary service for bronchitis. Patient reports a good appetite. Computed tomography scan of the abdomen shows no acute changes. Abdominal ultrasound was negative. Patient was hypotensive this morning she is on Midodrine and repeat blood pressure show improvement 109/62. Patient denies any nausea or vomiting. Denies any bowel movement changes or urinary symptoms. She reports that she starting to feel better. 03/18/2018 patient reports improvement in her back pain. She is still having some chest pains that are reproducible with palpation. Xarelto was restarted yesterday. Patient worked with physical therapy this morning and became very short of breath. Oxygen had been increased to 10 L. She was able to recover and then option came back down to 6 L at 96%. She has been on 3 L of oxygen at home. She is complaining of constipation bowel movements been very small. She had a slight increase in her liver enzymes AST 74 and ALT 84 Lipitor discontinued. Patient has been cleared by cardiology and pulmonary service for discharge on 03/19/2018 patient is alert and oriented in no distress, she reports improvement in her back pain. Patient worked with physical therapy this morning and became very short of breath. Oxygen had been increased to 10 L. yesterday She was able to recover and then option came back down to 6 L at 96%. Now she is on BiPAP She has been on 3 L of oxygen at home. She is complaining of constipation otherwise she denies any complaints. On 03/20/2018 patient is alert and oriented in no apparent distress she was seen and examined on 6 floor she was refusing BiPAP yesterday and now she is maintained on high flow oxygen she denies any chest pain or shortness of breath she denies any palpitation or cough there is no nausea or vomiting no abdominal pain no diarrhea and no urinary symptoms. 03/21/2018 patient still requiring high flow oxygen via AIRVO at 35L. patient reports shortness of breath when she was getting cleaned up earlier this morning. She denies any chest pains. Denies any nausea or vomiting. Denies bowel movement changes or urinary symptoms. She was started on Solu-Medrol over the weekend. 03/22/2018 yesterday patient was placed on Pulmicort and Perforomist. She had a slight reaction became flushed some shortness of breath and went into atrial fibrillation. Patient does have a known history of atrial fibrillation. Pulmicort and Perforomist have been discontinued. Patient has been seen by pulmonary service and they have ordered DuoNeb updrafts and Symbicort was restarted. CTA was negative for PE did show cardiomegaly and severe emphysema. Patient had echo with bubble study done results are pending. She is still on the earlobe oh FiO2 of 50% with flow rate of 35. Objective - Vital Signs Vital signs: Vital Signs Temp 98.4 F 03/22/18 08:00 Pulse 87 03/22/18 08:55 Resp 20 03/22/18 08:55 BP 134/78 03/22/18 08:00 Pulse Ox 98 03/22/18 08:55 Intake & Output 03/21/18 03/22/18 03/22/18 18:59 06:59 18:59 Intake Total 720 420 180 Output Total 300 Balance 720 120 180 Weight 71.4 kg Intake: Oral 720 420 180 Output: Urine 300 Other: Voiding Method Bedside Commode Bedside Commode # Voids 1 1 - Exam Head normocephalic Neck supple Lungs crackles at bases Heart irregular. A. fib on monitor heart rate 118 Abdomen is soft nontender nondistended positive bowel sounds no hepatosplenomegaly Extremities no edema Neuro alert and orientated to 3 - Labs CBC & Chem 7: 03/22/18 05:53 03/22/18 05:53 Labs: Abnormal Lab Results - Last 24 Hours (Table) 03/20/18 03/21/18 03/21/18 Range/Units 06:34 11:37 16:33 WBC (3.8-10.6) k/uL RBC (3.80-5.40) m/uL Hct (34.0-46.0) % MCHC (31.0-37.0) g/dL RDW (11.5-15.5) % Neutrophils # (1.3-7.7) k/uL Lymphocytes # (1.0-4.8) k/uL Sodium (137-145) mmol/L BUN (7-17) mg/dL Glucose (74-99) mg/dL POC Glucose (mg/dL) 133 H 282 H (75-99) mg/dL Hemoglobin A1c 6.2 H (4.0-6.0) % Total Creatine Kinase (30-135) U/L 03/21/18 03/21/18 03/22/18 Range/Units 20:55 21:50 05:50 WBC (3.8-10.6) k/uL RBC (3.80-5.40) m/uL Hct (34.0-46.0) % MCHC (31.0-37.0) g/dL RDW (11.5-15.5) % Neutrophils # (1.3-7.7) k/uL Lymphocytes # (1.0-4.8) k/uL Sodium (137-145) mmol/L BUN (7-17) mg/dL Glucose (74-99) mg/dL POC Glucose (mg/dL) 189 H 140 H (75-99) mg/dL Hemoglobin A1c (4.0-6.0) % Total Creatine Kinase <20 L (30-135) U/L 03/22/18 03/22/18 Range/Units 05:53 05:53 WBC 15.3 H (3.8-10.6) k/uL RBC 5.96 H (3.80-5.40) m/uL Hct 49.6 H (34.0-46.0) % MCHC 30.2 L (31.0-37.0) g/dL RDW 17.1 H (11.5-15.5) % Neutrophils # 14.0 H (1.3-7.7) k/uL Lymphocytes # 0.8 L (1.0-4.8) k/uL Sodium 134 L (137-145) mmol/L BUN 29 H (7-17) mg/dL Glucose 146 H (74-99) mg/dL POC Glucose (mg/dL) (75-99) mg/dL Hemoglobin A1c (4.0-6.0) % Total Creatine Kinase (30-135) U/L Assessment and Plan Assessment: 1. Chest pain: Likely muscle skeletal secondary to the tracheobronchitis. EKG sinus rhythm with PACs and right bundle audra block. Cardiac enzymes negative 3 sets. Patient seen by cardiology echo showing an EF of 50-55%. They've decreased aspirin to 81 mg daily. Cardiology has signed off 2. Chronic lower back pain with degenerative disc disease. Status post lumbar epidural and injection. Back pain improved. Continue [place] 3. Right-sided numbness during the chest pain episode. Now resolved. Patient has been off of Xarelto for 3 days. Computed tomography scan of the brain showing right frontal lobe encephalomalcia without change compared to old exam. no acute intracranial abnormality. 4. Right lower quadrant abdominal pain. Improved. Abdominal ultrasound and computed tomography scan the abdomen showing no acute abnormality. Amylase lipase and LFTs all within normal range. Urinalysis negative no evidence of UTI 5. History of paroxysmal atrial fibrillation on amiodarone. Continue Xarelto 6. Essential hypertension. Elevated blood pressure outpatient receiving extra labetalol. Patient usually has hypotension and is on midodrine 7. Right upper lobe pulmonary nodule and possible pulmonary fibrosis being followed outpatient with pulmonary service 8. Acute on chronic Chronic hypoxic respiratory failure home O2 dependent usually uses 3 L of oxygen. Patient currently requiring 6 L. Possibly related to her bronchitis and COPD. Patient currently on doxycycline and prednisone 9. Acute COPD exacerbation: With worsening acute hypoxic respiratory failure requiring high flow oxygen. Pulmonary service is trending high flow oxygen down.l 10. History of CVA 11. history of myocardial infarction and coronary artery disease with previous cardiac stents 12. History of bipolar continue Latuda and Trileptal 13. History of Renal cancer status post right nephrectomy 14. Acute tracheobronchitis: Seen by pulmonary service started on doxycycline and prednisone 15. Mildly elevated LFTs. Discontinue Lipitor. Repeat labs in a.m. 16. Constipation start Colace Hep-Lock IV. Encouraged patient to increase activity. Continue PT OT GI prophylaxis Protonix and DVT prophylaxis Xarelto When patient is stable for discharge she'll be going home with home care I performed an examination of the patient and discussed their management with the physician Sewer Builder. I have reviewed the Physician Sewer Builder's notes and agree with the documented findings and plan of care
[2018-03-22 11:38] LABS: Glucose,Whole Blood 167 mg/dL (75-99)
[2018-03-22] MEDS: IPRATROPIUM-ALBUTEROL 3 ML NEB INHALATION SCH ×3 (11:48→20:01)
[2018-03-22] MEDS: HYDROcodone/APAP 5-325MG 1 EACH TAB PO PRN ×2 (13:00→21:13)
[2018-03-22] MEDS: ALPRAZolam 0.25 MG TAB PO PRN ×2 (13:01→21:13)
[2018-03-22 13:58] LABS: ABG Base Excess 3.2 mmol/L; ABG HCO3 27 mmol/L (21-25); ABG Oxygen Saturation 93.4 % (94-97); ABG PCO2 40 mmHg (35-45); ABG PH 7.45 (7.35-7.45); ABG PO2 72 mmHg (83-108); ABG TCO2 29 mmol/L (19-24)
[2018-03-22] MEDS: RIVAROXABAN 15 MG TAB PO SCH (16:39)
[2018-03-22] MEDS: methylPREDNISolone SOD SUCCI 40 MG/ML 1 ML VIAL IV SCH ×2 (16:39→23:27)
[2018-03-22 16:55] LABS: Glucose,Whole Blood 142 mg/dL (75-99)
[2018-03-22] MEDS: SYMBICORT 160-4.5 MCG INHALER INHALATION SCH (20:00)
[2018-03-22] MEDS: PARoxetine 10 MG TAB PO SCH (21:12)
[2018-03-22] MEDS: MONTELUKAST 10 MG TAB PO SCH (21:12)
[2018-03-22] MEDS: OXcarbazepine 150 MG TAB PO SCH (21:12)
[2018-03-22] MEDS: MELATONIN 3 MG TABLET PO SCH (21:12)
[2018-03-22 22:52] LABS: Glucose,Whole Blood 157 mg/dL (75-99)
[2018-03-23 06:15] LABS: Glucose,Whole Blood 137 mg/dL (75-99)
[2018-03-23 06:36] LABS: Anisocytosis Slight; Basophils % (A) 0 %; Eosinophils % (A) 0 %; HCT 53.3 % (34.0-46.0); HGB 15.9 gm/dL (11.4-16.0); Hypochromasia Slight; Lymphocytes # (A) 0.9 k/uL (1.0-4.8); Lymphocytes % (A) 6 %; MCH 25.1 pg (25.0-35.0); MCHC 29.9 g/dL (31.0-37.0); MCV 84.1 fL (80.0-100.0); Mean Platelet Volume 6.7; Monocytes # (A) 0.5 k/uL (0-1.0); Monocytes % (A) 3 %; Neutrophils # (A) 14.9 k/uL (1.3-7.7); Neutrophils % (A) 91 %; Platelet Count 431 k/uL (150-450); RBC 6.34 m/uL (3.80-5.40); WBC 16.4 k/uL (3.8-10.6)
[2018-03-23] MEDS: INSULIN ASPART 100 UNIT/ML 1 ML 10 ML VIAL SQ SCH ×4 (06:52→21:55)
[2018-03-23] MEDS: PANTOPRAZOLE 40 MG TABLET PO SCH (06:52)
[2018-03-23] MEDS: LEVOTHYROXINE 100 MCG TAB PO SCH (06:52)
[2018-03-23 06:59] LABS: Albumin 3.8 g/dL (3.5-5.0); Calcium 9.5 mg/dL (8.4-10.2); Potassium 5.6 mmol/L (3.5-5.1); Total Bilirubin 0.4 mg/dL (0.2-1.3); Total Protein 6.2 g/dL (6.3-8.2)
[2018-03-23] MEDS: IPRATROPIUM-ALBUTEROL 3 ML NEB INHALATION SCH ×4 (08:46→19:18)
[2018-03-23] MEDS: SYMBICORT 160-4.5 MCG INHALER INHALATION SCH ×2 (08:46→19:17)
[2018-03-23] MEDS: MIDODRINE 5 MG TAB PO SCH ×3 (09:33→17:06)
[2018-03-23] MEDS: FERROUS SULFATE 325 MG TAB PO SCH (09:33)
[2018-03-23] MEDS: AMIODARONE 100 MG TAB PO SCH (09:33)
[2018-03-23] MEDS: POTASSIUM CHLORIDE ER 10 MEQ TAB.ER.PRT PO SCH (09:33)
[2018-03-23] MEDS: DOCUSATE 100 MG CAP PO SCH ×2 (09:33→21:55)
[2018-03-23] MEDS: METOPROLOL TARTRATE 25 MG TAB PO SCH ×2 (09:33→21:56)
[2018-03-23] MEDS: NITROGLYCERIN OINT 1 INCH/GM PACKET TOPICAL SCH ×3 (09:34→23:14)
[2018-03-23] MEDS: LURASIDONE 40 MG TAB PO SCH (09:34)
[2018-03-23] MEDS: DOXYCYCLINE MONOHYDRATE 100 MG CAPSULE PO SCH ×2 (09:34→21:55)
[2018-03-23] MEDS: methylPREDNISolone SOD SUCCI 40 MG/ML 1 ML VIAL IV SCH ×3 (09:35→23:14)
[2018-03-23] MEDS: CALCIUM POLYCARBOPHIL 625 MG TAB PO SCH (09:35)
--- NOTE | 2018-03-23 10:31 | P.PN ---
<Aleksandra Chaudhary P - Last Filed: 03/23/18 10:24> Subjective Progress Note Date: 03/23/18 his is a 67-year-old female, patient of [facility]. Patient seen and evaluated in the ER. Patient has had previous history of myocardial infarction, coronary artery disease with 4 cardiac stents, paroxysmal atrial fibrillation, hypertension hyperlipidemia and former smoker. She also has a history of COPD hypothyroidism CVA vascular dementia, trigeminal neuralgia, obstructive sleep apnea, bowel syndrome, peripheral arterial disease with stents in the lower extremities and bipolar. Patient has a history of degenerative disc disease in the spine and was scheduled to have a epidural completed with pain management in the outpatient setting. Daughter was present with patient. Patient was in the room and getting undressed and ready for the procedure she reports feeling very anxious and becoming short of breath and having chest pain across the chest. Saw blood pressure was elevated at 180. At the pain management office she received 3 nitro and aspirin and a dose of labetalol. This helped relieve patient's chest pain. She was then brought into the emergency room for further evaluation in regards to her chest pain. EKG showing sinus rhythm with PACs and right bundle audra block. First troponin was negative. Patient's last heart catheterization was in December 2017 which showed patent stent in the proximal right coronary artery, mild disease involving the ostial left main, mild disease involving the left circumflex and patent stent in the mid LAD. At that time cardiology recommended maximize medical treatment. Chest x-ray shows no acute cardiopulmonary disease. Does reveal known underlying pulmonary edema on pulmonary fibrosis and a known right upper lobe pulmonary nodule. Patient's daughter reports that her mother is unable to participate in some of the day programs that she used to due to her pain. She will prefer if patient could receive the epidural injection for her back pain before restarting the Xarelto. Patient is also reporting during this chest pain episode that she had right-sided numbness which she's had on previous strokes. She has been off of her Xarelto for 3 days for the spinal epidural procedure. Patient admits to some nausea. Denies any vomiting bowel movement changes or urinary symptoms. Denies any cough fever or chills or sweats. Denies any facial droop or slurred speech. She also reports having some right lower abdominal pain. Daughter reports this is consistent with patient's history of IBS. Patient also has a history of chronic hypoxic respiratory failure and has been on 3 L oxygen at home. Cardiology and pain service has been consulted. Patient daughter reports that her mother had been on Ativan and [place] previously after her stay at [facility] in December. However, her PCP will not refill his medications and wanted her mother to stop taking them. She has only been using Tylenol for pain control. On 03/16/2018 patient is currently resting. Planning for epidural injection this afternoon. Ultrasound of abdomen completed showing no acute abdominal process. Per cardiology 2-D echo has been ordered and aspirin has been decreased to [address] of abdomen and pelvis has been ordered due to recent weight loss. Amalyse and lipase levels have been ordered. Pulmonary services have been consulted. 03/17/2018 patient is status post lumbar epidural injection. She is reporting improvement in her back pain and chest pain. Xarelto will be resumed today. She was also started on doxycycline and prednisone per pulmonary service for bronchitis. Patient reports a good appetite. Computed tomography scan of the abdomen shows no acute changes. Abdominal ultrasound was negative. Patient was hypotensive this morning she is on Midodrine and repeat blood pressure show improvement 109/62. Patient denies any nausea or vomiting. Denies any bowel movement changes or urinary symptoms. She reports that she starting to feel better. 03/18/2018 patient reports improvement in her back pain. She is still having some chest pains that are reproducible with palpation. Xarelto was restarted yesterday. Patient worked with physical therapy this morning and became very short of breath. Oxygen had been increased to 10 L. She was able to recover and then option came back down to 6 L at 96%. She has been on 3 L of oxygen at home. She is complaining of constipation bowel movements been very small. She had a slight increase in her liver enzymes AST 74 and ALT 84 Lipitor discontinued. Patient has been cleared by cardiology and pulmonary service for discharge on 03/19/2018 patient is alert and oriented in no distress, she reports improvement in her back pain. Patient worked with physical therapy this morning and became very short of breath. Oxygen had been increased to 10 L. yesterday She was able to recover and then option came back down to 6 L at 96%. Now she is on BiPAP She has been on 3 L of oxygen at home. She is complaining of constipation otherwise she denies any complaints. On 03/20/2018 patient is alert and oriented in no apparent distress she was seen and examined on 6 floor she was refusing BiPAP yesterday and now she is maintained on high flow oxygen she denies any chest pain or shortness of breath she denies any palpitation or cough there is no nausea or vomiting no abdominal pain no diarrhea and no urinary symptoms. 03/21/2018 patient still requiring high flow oxygen via AIRVO at 35L. patient reports shortness of breath when she was getting cleaned up earlier this morning. She denies any chest pains. Denies any nausea or vomiting. Denies bowel movement changes or urinary symptoms. She was started on Solu-Medrol over the weekend. 03/22/2018 yesterday patient was placed on Pulmicort and Perforomist. She had a slight reaction became flushed some shortness of breath and went into atrial fibrillation. Patient does have a known history of atrial fibrillation. Pulmicort and Perforomist have been discontinued. Patient has been seen by pulmonary service and they have ordered DuoNeb updrafts and Symbicort was restarted. CTA was negative for PE did show cardiomegaly and severe emphysema. Patient had echo with bubble study done results are pending. She is still on the earlobe oh FiO2 of 50% with flow rate of 35. On 03/23/2018 patient currently resting comfortably bed. Patient remains on Airvo at 40%. Patient remains on IV steroids. Patient denies chest pain or shortness of breath. Objective - Vital Signs Vital signs: Vital Signs Temp 98.3 F 03/23/18 04:00 Pulse 86 03/23/18 04:00 Resp 18 03/23/18 04:00 BP 118/91 03/23/18 04:00 Pulse Ox 97 03/23/18 08:46 Intake & Output 03/22/18 03/23/18 03/23/18 18:59 06:59 18:59 Intake Total 560 240 Output Total 500 Balance 60 240 Weight 71.9 kg Intake: Oral 560 240 Output: Urine 500 Other: Voiding Method Bedside Commode Bedside Commode # Voids 3 # Bowel Movements 1 1 - Exam Head normocephalic Neck supple Lungs crackles at bases Heart irregular. A. fib on monitor heart rate 86 Abdomen is soft nontender nondistended positive bowel sounds no hepatosplenomegaly Extremities no edema Neuro alert and orientated to 3 - Labs CBC & Chem 7: 03/23/18 05:33 03/23/18 05:33 Labs: Abnormal Lab Results - Last 24 Hours (Table) 03/22/18 03/22/18 03/22/18 Range/Units 11:37 13:47 16:35 WBC (3.8-10.6) k/uL RBC (3.80-5.40) m/uL Hct (34.0-46.0) % MCHC (31.0-37.0) g/dL RDW (11.5-15.5) % Neutrophils # (1.3-7.7) k/uL Lymphocytes # (1.0-4.8) k/uL ABG pO2 72 L (83-108) mmHg ABG HCO3 27 H (21-25) mmol/L ABG Total CO2 29 H (19-24) mmol/L ABG O2 Saturation 93.4 L (94-97) % Sodium (137-145) mmol/L Potassium (3.5-5.1) mmol/L BUN (7-17) mg/dL Glucose (74-99) mg/dL POC Glucose (mg/dL) 167 H 142 H (75-99) mg/dL Total Protein (6.3-8.2) g/dL 03/22/18 03/23/18 03/23/18 Range/Units 20:55 05:33 05:33 WBC 16.4 H (3.8-10.6) k/uL RBC 6.34 H (3.80-5.40) m/uL Hct 53.3 H (34.0-46.0) % MCHC 29.9 L (31.0-37.0) g/dL RDW 17.0 H (11.5-15.5) % Neutrophils # 14.9 H (1.3-7.7) k/uL Lymphocytes # 0.9 L (1.0-4.8) k/uL ABG pO2 (83-108) mmHg ABG HCO3 (21-25) mmol/L ABG Total CO2 (19-24) mmol/L ABG O2 Saturation (94-97) % Sodium 134 L (137-145) mmol/L Potassium 5.6 H (3.5-5.1) mmol/L BUN 29 H (7-17) mg/dL Glucose 132 H (74-99) mg/dL POC Glucose (mg/dL) 157 H (75-99) mg/dL Total Protein 6.2 L (6.3-8.2) g/dL 03/23/18 Range/Units 06:13 WBC (3.8-10.6) k/uL RBC (3.80-5.40) m/uL Hct (34.0-46.0) % MCHC (31.0-37.0) g/dL RDW (11.5-15.5) % Neutrophils # (1.3-7.7) k/uL Lymphocytes # (1.0-4.8) k/uL ABG pO2 (83-108) mmHg ABG HCO3 (21-25) mmol/L ABG Total CO2 (19-24) mmol/L ABG O2 Saturation (94-97) % Sodium (137-145) mmol/L Potassium (3.5-5.1) mmol/L BUN (7-17) mg/dL Glucose (74-99) mg/dL POC Glucose (mg/dL) 137 H (75-99) mg/dL Total Protein (6.3-8.2) g/dL Assessment and Plan Assessment: 1. Chest pain: Likely muscle skeletal secondary to the tracheobronchitis. EKG sinus rhythm with PACs and right bundle audra block. Cardiac enzymes negative 3 sets. Patient seen by cardiology echo showing an EF of 50-55%. They've decreased aspirin to 81 mg daily. Cardiology has signed off 2. Chronic lower back pain with degenerative disc disease. Status post lumbar epidural and injection. Back pain improved. Continue [place] 3. Right-sided numbness during the chest pain episode. Now resolved. Patient has been off of Xarelto for 3 days. Computed tomography scan of the brain showing right frontal lobe encephalomalcia without change compared to old exam. no acute intracranial abnormality. 4. Right lower quadrant abdominal pain. Improved. Abdominal ultrasound and computed tomography scan the abdomen showing no acute abnormality. Amylase lipase and LFTs all within normal range. Urinalysis negative no evidence of UTI 5. History of paroxysmal atrial fibrillation on amiodarone. Continue Xarelto 6. Essential hypertension. Elevated blood pressure outpatient receiving extra labetalol. Patient usually has hypotension and is on midodrine 7. Right upper lobe pulmonary nodule and possible pulmonary fibrosis being followed outpatient with pulmonary service 8. Acute on chronic Chronic hypoxic respiratory failure home O2 dependent usually uses 3 L of oxygen. Patient currently requiring 6 L. Possibly related to her bronchitis and COPD. Patient currently on doxycycline and solu-medrol IV currently getting tapered down 9. Acute COPD exacerbation: With worsening acute hypoxic respiratory failure requiring high flow oxygen. Pulmonary service is trending high flow oxygen down.l 10. History of CVA 11. history of myocardial infarction and coronary artery disease with previous cardiac stents 12. History of bipolar continue Latuda and Trileptal 13. History of Renal cancer status post right nephrectomy 14. Acute tracheobronchitis: Seen by pulmonary service started on doxycycline and solumedrol 15. Mildly elevated LFTs. Discontinue Lipitor. Repeat labs in a.m. 16. Constipation start Colace Hep-Lock IV. Encouraged patient to increase activity. Continue PT OT GI prophylaxis Protonix and DVT prophylaxis Xarelto When patient is stable for discharge she'll be going home with home care I performed an examination of the patient and discussed their management with the Nurse Practitioner. I have reviewed the Nurse Practitioner's notes and agree with the documented findings and plan of care <Florinda Hutchinson A - Last Filed: 03/23/18 14:43> Objective - Vital Signs Vital signs: Vital Signs Temp 98.5 F 03/23/18 12:00 Pulse 95 03/23/18 12:16 Resp 18 03/23/18 12:16 BP 111/70 03/23/18 12:00 Pulse Ox 94 L 03/23/18 12:00 Intake & Output 03/22/18 03/23/18 03/23/18 18:59 06:59 18:59 Intake Total 560 340 Output Total 500 Balance 60 340 Weight 71.9 kg 71.9 kg Intake: Oral 560 340 Output: Urine 500 Other: Voiding Method Bedside Commode Bedside Commode Bedside Commode # Voids 3 # Bowel Movements 1 1 - Labs CBC & Chem 7: 03/23/18 05:33 03/23/18 05:33 Labs: Abnormal Lab Results - Last 24 Hours (Table) 03/22/18 03/22/18 03/23/18 Range/Units 16:35 20:55 05:33 WBC 16.4 H (3.8-10.6) k/uL RBC 6.34 H (3.80-5.40) m/uL Hct 53.3 H (34.0-46.0) % MCHC 29.9 L (31.0-37.0) g/dL RDW 17.0 H (11.5-15.5) % Neutrophils # 14.9 H (1.3-7.7) k/uL Lymphocytes # 0.9 L (1.0-4.8) k/uL Sodium (137-145) mmol/L Potassium (3.5-5.1) mmol/L BUN (7-17) mg/dL Glucose (74-99) mg/dL POC Glucose (mg/dL) 142 H 157 H (75-99) mg/dL Total Protein (6.3-8.2) g/dL 03/23/18 03/23/18 03/23/18 Range/Units 05:33 06:13 11:07 WBC (3.8-10.6) k/uL RBC (3.80-5.40) m/uL Hct (34.0-46.0) % MCHC (31.0-37.0) g/dL RDW (11.5-15.5) % Neutrophils # (1.3-7.7) k/uL Lymphocytes # (1.0-4.8) k/uL Sodium 134 L (137-145) mmol/L Potassium 5.6 H (3.5-5.1) mmol/L BUN 29 H (7-17) mg/dL Glucose 132 H (74-99) mg/dL POC Glucose (mg/dL) 137 H 163 H (75-99) mg/dL Total Protein 6.2 L (6.3-8.2) g/dL Assessment and Plan Assessment: Patient seen and examined. Patient states her breathing is about at baseline. She did have a slightly elevated potassium at 5.6. This will be rechecked. The patient would greatly benefit from noninvasive ventilator at home. Without this is likely the patient will from respiratory failure. The patient does have life-threatening end-stage COPD and hypoxic respiratory failure. She also has underlying fibrosis. Continue to monitor closely. ~Florinda Hutchinson,
[2018-03-23 11:13] LABS: Glucose,Whole Blood 163 mg/dL (75-99)
[2018-03-23 16:26] LABS: Glucose,Whole Blood 117 mg/dL (75-99)
[2018-03-23] MEDS: RIVAROXABAN 15 MG TAB PO SCH (17:06)
[2018-03-23] MEDS: HYDROcodone/APAP 5-325MG 1 EACH TAB PO PRN ×2 (17:06→22:02)
[2018-03-23] MEDS: ALPRAZolam 0.25 MG TAB PO PRN (18:56)
[2018-03-23 21:09] LABS: Glucose,Whole Blood 181 mg/dL (75-99)
[2018-03-23] MEDS: MELATONIN 3 MG TABLET PO SCH (21:55)
[2018-03-23] MEDS: MONTELUKAST 10 MG TAB PO SCH (21:56)
[2018-03-23] MEDS: OXcarbazepine 150 MG TAB PO SCH (21:56)
[2018-03-23] MEDS: PARoxetine 10 MG TAB PO SCH (21:56)
[2018-03-24 05:52] LABS: Glucose,Whole Blood 99 mg/dL (75-99)
[2018-03-24] MEDS: INSULIN ASPART 100 UNIT/ML 1 ML 10 ML VIAL SQ SCH ×4 (06:14→21:27)
[2018-03-24] MEDS: LEVOTHYROXINE 100 MCG TAB PO SCH (06:18)
[2018-03-24] MEDS: PANTOPRAZOLE 40 MG TABLET PO SCH (06:18)
[2018-03-24] MEDS: MIDODRINE 5 MG TAB PO SCH ×3 (06:18→17:14)
[2018-03-24 06:21] LABS: Anisocytosis Slight; Basophils % (A) 0 %; Eosinophils # (A) 0.1 k/uL (0-0.7); Eosinophils % (A) 1 %; HCT 47.8 % (34.0-46.0); HGB 14.9 gm/dL (11.4-16.0); Lymphocytes # (A) 1.3 k/uL (1.0-4.8); Lymphocytes % (A) 9 %; MCH 25.9 pg (25.0-35.0); MCHC 31.1 g/dL (31.0-37.0); MCV 83.1 fL (80.0-100.0); Mean Platelet Volume 6.4; Monocytes # (A) 0.9 k/uL (0-1.0); Monocytes % (A) 7 %; Neutrophils # (A) 11.5 k/uL (1.3-7.7); Neutrophils % (A) 82 %; Platelet Count 381 k/uL (150-450); RBC 5.75 m/uL (3.80-5.40)
[2018-03-24 06:38] LABS: Albumin 3.5 g/dL (3.5-5.0); Calcium 9.2 mg/dL (8.4-10.2); Potassium 5.6 mmol/L (3.5-5.1); Total Bilirubin 0.3 mg/dL (0.2-1.3); Total Protein 5.7 g/dL (6.3-8.2)
[2018-03-24] MEDS ORDERED: SODIUM POLYSTYRENE SULFONATE 15 GM/60 ML BOTTLE PO STA (08:07)
[2018-03-24] MEDS: methylPREDNISolone SOD SUCCI 40 MG/ML 1 ML VIAL IV SCH ×2 (08:24→21:28)
[2018-03-24] MEDS: CALCIUM POLYCARBOPHIL 625 MG TAB PO SCH (08:25)
[2018-03-24] MEDS: AMIODARONE 100 MG TAB PO SCH (08:25)
[2018-03-24] MEDS: NITROGLYCERIN OINT 1 INCH/GM PACKET TOPICAL SCH ×3 (08:25→23:41)
[2018-03-24] MEDS: DOCUSATE 100 MG CAP PO SCH ×2 (08:26→08:45)
[2018-03-24] MEDS: METOPROLOL TARTRATE 25 MG TAB PO SCH ×2 (08:26→21:28)
[2018-03-24] MEDS: FERROUS SULFATE 325 MG TAB PO SCH (08:26)
[2018-03-24] MEDS: LURASIDONE 40 MG TAB PO SCH (08:26)
[2018-03-24] MEDS: DOXYCYCLINE MONOHYDRATE 100 MG CAPSULE PO SCH (08:26)
[2018-03-24] MEDS: HYDROcodone/APAP 5-325MG 1 EACH TAB PO PRN ×2 (08:27→21:27)
[2018-03-24] MEDS: SYMBICORT 160-4.5 MCG INHALER INHALATION SCH ×2 (08:35→21:27)
[2018-03-24] MEDS: IPRATROPIUM-ALBUTEROL 3 ML NEB INHALATION SCH ×4 (08:35→21:27)
--- NOTE | 2018-03-24 10:37 | P.PN ---
<ChanloliJúnior brooksin - Last Filed: 03/24/18 10:30> Subjective Progress Note Date: 03/24/18 This is a 67-year-old female, patient of [facility]. Patient seen and evaluated in the ER. Patient has had previous history of myocardial infarction, coronary artery disease with 4 cardiac stents, paroxysmal atrial fibrillation, hypertension hyperlipidemia and former smoker. She also has a history of COPD hypothyroidism CVA vascular dementia, trigeminal neuralgia, obstructive sleep apnea, bowel syndrome, peripheral arterial disease with stents in the lower extremities and bipolar. Patient has a history of degenerative disc disease in the spine and was scheduled to have a epidural completed with pain management in the outpatient setting. Daughter was present with patient. Patient was in the room and getting undressed and ready for the procedure she reports feeling very anxious and becoming short of breath and having chest pain across the chest. Saw blood pressure was elevated at 180. At the pain management office she received 3 nitro and aspirin and a dose of labetalol. This helped relieve patient's chest pain. She was then brought into the emergency room for further evaluation in regards to her chest pain. EKG showing sinus rhythm with PACs and right bundle audra block. First troponin was negative. Patient's last heart catheterization was in December 2017 which showed patent stent in the proximal right coronary artery, mild disease involving the ostial left main, mild disease involving the left circumflex and patent stent in the mid LAD. At that time cardiology recommended maximize medical treatment. Chest x-ray shows no acute cardiopulmonary disease. Does reveal known underlying pulmonary edema on pulmonary fibrosis and a known right upper lobe pulmonary nodule. Patient's daughter reports that her mother is unable to participate in some of the day programs that she used to due to her pain. She will prefer if patient could receive the epidural injection for her back pain before restarting the Xarelto. Patient is also reporting during this chest pain episode that she had right-sided numbness which she's had on previous strokes. She has been off of her Xarelto for 3 days for the spinal epidural procedure. Patient admits to some nausea. Denies any vomiting bowel movement changes or urinary symptoms. Denies any cough fever or chills or sweats. Denies any facial droop or slurred speech. She also reports having some right lower abdominal pain. Daughter reports this is consistent with patient's history of IBS. Patient also has a history of chronic hypoxic respiratory failure and has been on 3 L oxygen at home. Cardiology and pain service has been consulted. Patient daughter reports that her mother had been on Ativan and Corinth previously after her stay at [facility] in December. However, her PCP will not refill his medications and wanted her mother to stop taking them. She has only been using Tylenol for pain control. On 03/16/2018 patient is currently resting. Planning for epidural injection this afternoon. Ultrasound of abdomen completed showing no acute abdominal process. Per cardiology 2-D echo has been ordered and aspirin has been decreased to [address] of abdomen and pelvis has been ordered due to recent weight loss. Amalyse and lipase levels have been ordered. Pulmonary services have been consulted. 03/17/2018 patient is status post lumbar epidural injection. She is reporting improvement in her back pain and chest pain. Xarelto will be resumed today. She was also started on doxycycline and prednisone per pulmonary service for bronchitis. Patient reports a good appetite. Computed tomography scan of the abdomen shows no acute changes. Abdominal ultrasound was negative. Patient was hypotensive this morning she is on Midodrine and repeat blood pressure show improvement 109/62. Patient denies any nausea or vomiting. Denies any bowel movement changes or urinary symptoms. She reports that she starting to feel better. 03/18/2018 patient reports improvement in her back pain. She is still having some chest pains that are reproducible with palpation. Xarelto was restarted yesterday. Patient worked with physical therapy this morning and became very short of breath. Oxygen had been increased to 10 L. She was able to recover and then option came back down to 6 L at 96%. She has been on 3 L of oxygen at home. She is complaining of constipation bowel movements been very small. She had a slight increase in her liver enzymes AST 74 and ALT 84 Lipitor discontinued. Patient has been cleared by cardiology and pulmonary service for discharge on 03/19/2018 patient is alert and oriented in no distress, she reports improvement in her back pain. Patient worked with physical therapy this morning and became very short of breath. Oxygen had been increased to 10 L. yesterday She was able to recover and then option came back down to 6 L at 96%. Now she is on BiPAP She has been on 3 L of oxygen at home. She is complaining of constipation otherwise she denies any complaints. On 03/20/2018 patient is alert and oriented in no apparent distress she was seen and examined on 6 floor she was refusing BiPAP yesterday and now she is maintained on high flow oxygen she denies any chest pain or shortness of breath she denies any palpitation or cough there is no nausea or vomiting no abdominal pain no diarrhea and no urinary symptoms. 03/21/2018 patient still requiring high flow oxygen via AIRVO at 35L. patient reports shortness of breath when she was getting cleaned up earlier this morning. She denies any chest pains. Denies any nausea or vomiting. Denies bowel movement changes or urinary symptoms. She was started on Solu-Medrol over the weekend. 03/22/2018 yesterday patient was placed on Pulmicort and Perforomist. She had a slight reaction became flushed some shortness of breath and went into atrial fibrillation. Patient does have a known history of atrial fibrillation. Pulmicort and Perforomist have been discontinued. Patient has been seen by pulmonary service and they have ordered DuoNeb updrafts and Symbicort was restarted. CTA was negative for PE did show cardiomegaly and severe emphysema. Patient had echo with bubble study done results are pending. She is still on the earlobe oh FiO2 of 50% with flow rate of 35. On 03/23/2018 patient currently resting comfortably bed. Patient remains on Airvo at 40%. Patient remains on IV steroids. Patient denies chest pain or shortness of breath. 03/24/2018 patient having multiple stools through the night. Patient reports his stools are more mushy than liquidy. Stool for C. diff will be ordered. Potassium remains at 5.6. She did receive her potassium supplement yesterday. Even with elevated potassium. Potassium supplement discontinued. Kayexalate 30 g ordered but patient is having diarrhea nursing staff gave 15 g. We'll repeat a potassium level at 12:00. Sodium level dropped to 131. Patient denies any nausea or vomiting. Denies any chest pain. Reports in the chest pain and back pain. Denies any burning with urination. Still on the AIRVO at 40% Objective - Vital Signs Vital signs: Vital Signs Temp 97 F L 03/23/18 20:00 Pulse 76 03/24/18 04:00 Resp 20 03/24/18 04:00 BP 129/82 03/24/18 04:00 Pulse Ox 97 03/24/18 08:37 Intake & Output 03/23/18 03/24/18 03/24/18 18:59 06:59 18:59 Intake Total 340 240 Balance 340 240 Weight 71.9 kg 73.4 kg Intake: Oral 340 240 Other: Voiding Method Bedside Commode Bedside Commode # Voids 3 1 # Bowel Movements 1 1 - Exam Head normocephalic Neck supple Lungs crackles at bases Heart irregular. A. fib on monitor heart rate 120 with activity Abdomen is soft nontender nondistended positive bowel sounds no hepatosplenomegaly Extremities no edema Neuro alert and orientated to 3 - Labs CBC & Chem 7: 03/24/18 05:56 03/24/18 05:56 Labs: Abnormal Lab Results - Last 24 Hours (Table) 03/23/18 03/23/18 03/23/18 Range/Units 11:07 16:21 21:06 WBC (3.8-10.6) k/uL RBC (3.80-5.40) m/uL Hct (34.0-46.0) % RDW (11.5-15.5) % Neutrophils # (1.3-7.7) k/uL Sodium (137-145) mmol/L Potassium (3.5-5.1) mmol/L Chloride (98-107) mmol/L BUN (7-17) mg/dL POC Glucose (mg/dL) 163 H 117 H 181 H (75-99) mg/dL Total Protein (6.3-8.2) g/dL 03/24/18 03/24/18 Range/Units 05:56 05:56 WBC 14.0 H (3.8-10.6) k/uL RBC 5.75 H (3.80-5.40) m/uL Hct 47.8 H (34.0-46.0) % RDW 17.0 H (11.5-15.5) % Neutrophils # 11.5 H (1.3-7.7) k/uL Sodium 131 L (137-145) mmol/L Potassium 5.6 H (3.5-5.1) mmol/L Chloride 96 L (98-107) mmol/L BUN 31 H (7-17) mg/dL POC Glucose (mg/dL) (75-99) mg/dL Total Protein 5.7 L (6.3-8.2) g/dL Assessment and Plan Assessment: 1. Chest pain: Likely muscle skeletal secondary to the tracheobronchitis. EKG sinus rhythm with PACs and right bundle audra block. Cardiac enzymes negative 3 sets. Patient seen by cardiology echo showing an EF of 50-55%. They've decreased aspirin to 81 mg daily. Cardiology has signed off 2. Chronic lower back pain with degenerative disc disease. Status post lumbar epidural and injection. Back pain improved. Continue Corinth 3. Right-sided numbness during the chest pain episode. Now resolved. Patient has been off of Xarelto for 3 days. Computed tomography scan of the brain showing right frontal lobe encephalomalcia without change compared to old exam. no acute intracranial abnormality. 4. Right lower quadrant abdominal pain. Improved. Abdominal ultrasound and computed tomography scan the abdomen showing no acute abnormality. Amylase lipase and LFTs all within normal range. Urinalysis negative no evidence of UTI 5. History of paroxysmal atrial fibrillation on amiodarone. Continue Xarelto 6. Essential hypertension. Elevated blood pressure outpatient receiving extra labetalol. Patient usually has hypotension and is on midodrine 7. Right upper lobe pulmonary nodule and possible pulmonary fibrosis being followed outpatient with pulmonary service 8. Acute on chronic Chronic hypoxic respiratory failure home O2 dependent usually uses 3 L of oxygen. Patient currently requiring 6 L. Possibly related to her bronchitis and COPD. Patient currently on doxycycline and prednisone 9. Acute COPD exacerbation: With worsening acute hypoxic respiratory failure requiring high flow oxygen. Pulmonary service is trending high flow oxygen down.l 10. History of CVA 11. history of myocardial infarction and coronary artery disease with previous cardiac stents 12. History of bipolar continue Latuda and Trileptal 13. History of Renal cancer status post right nephrectomy 14. Acute tracheobronchitis: Seen by pulmonary service started on doxycycline and prednisone 15. Mildly elevated LFTs. Discontinue Lipitor. Repeat labs in a.m. 16. Constipation now resolved. Patient now having loose stools. Discontinue Colace and FiberCon. We'll check stool for C. diff. 17. Hyperkalemia: Potassium 5.6 Discontinue potassium supplement. Kayexalate 30 g initially ordered for patient. However she is having loose is stools. Also she'll receive Kayexalate 15 g. Repeat potassium level at noon 18. Hyponatremia: Sodium 131 likely related to patient's diarrhea. We will restart normal saline at 50 mL an hour Continue physical therapy GI prophylaxis Protonix and DVT prophylaxis Xarelto When patient is stable for discharge she'll be going home with home care I performed an examination of the patient and discussed their management with the physician Croze Cutter Helper. I have reviewed the Physician Croze Cutter Helper's notes and agree with the documented findings and plan of care Dr. Kelly is on vacation starting March 22. Dr Hutchinson and Dr. TIANNA Rodriguez are covering the service <Florinda Hutchinson A - Last Filed: 03/24/18 15:00> Objective - Vital Signs Vital signs: Vital Signs Temp 97.7 F 03/24/18 11:27 Pulse 108 H 03/24/18 11:27 Resp 20 03/24/18 11:27 BP 114/92 03/24/18 11:27 Pulse Ox 96 03/24/18 11:27 Intake & Output 03/23/18 03/24/18 03/24/18 18:59 06:59 18:59 Intake Total 340 480 Balance 340 480 Weight 71.9 kg 73.4 kg Intake: Oral 340 480 Other: Voiding Method Bedside Commode Bedside Commode Bedside Commode # Voids 3 1 1 # Bowel Movements 1 1 1 - Labs CBC & Chem 7: 03/24/18 05:56 03/24/18 11:54 Labs: Abnormal Lab Results - Last 24 Hours (Table) 03/23/18 03/23/18 03/24/18 Range/Units 16:21 21:06 05:56 WBC 14.0 H (3.8-10.6) k/uL RBC 5.75 H (3.80-5.40) m/uL Hct 47.8 H (34.0-46.0) % RDW 17.0 H (11.5-15.5) % Neutrophils # 11.5 H (1.3-7.7) k/uL Sodium (137-145) mmol/L Potassium (3.5-5.1) mmol/L Chloride (98-107) mmol/L BUN (7-17) mg/dL POC Glucose (mg/dL) 117 H 181 H (75-99) mg/dL Total Protein (6.3-8.2) g/dL 03/24/18 03/24/18 03/24/18 Range/Units 05:56 11:23 11:54 WBC (3.8-10.6) k/uL RBC (3.80-5.40) m/uL Hct (34.0-46.0) % RDW (11.5-15.5) % Neutrophils # (1.3-7.7) k/uL Sodium 131 L (137-145) mmol/L Potassium 5.6 H 5.4 H (3.5-5.1) mmol/L Chloride 96 L (98-107) mmol/L BUN 31 H (7-17) mg/dL POC Glucose (mg/dL) 135 H (75-99) mg/dL Total Protein 5.7 L (6.3-8.2) g/dL Assessment and Plan Assessment: Patient seen and examined. Patient is tearful and angry. She states "you are messing up my medications." The patient was having diarrhea overnight. Her stool softeners have been held. Potassium slightly improved from 5.6 to 5.3. The patient is currently essentially on room air as the Airvo is off of her face. Her o2 saturation on 85%. She was placed back on Airvo. This is discussed with RT who will transition the patient back to nasal canula. Patient wears 4-5L NC ATC at baseline. She has also not been receiving nebulizer breathing treatments apparently since admission. The patient is using Symbicort BID. We will initiate Spiriva. Taper solumedrol. Plan to transition to PO Prednisone in the next 24-48 hours. Forms filled out for home noninvasive ventilator. ~Florinda Hutchinson DO
[2018-03-24 11:24] LABS: Glucose,Whole Blood 135 mg/dL (75-99)
[2018-03-24 12:24] LABS: Alpha 1 Anti-Trypsin 137 mg/dL (90 - 200); Alpha-1-Antitrypsin Phenotype MS
[2018-03-24] MEDS: ALPRAZolam 0.25 MG TAB PO PRN (14:29)
[2018-03-24 16:24] LABS: Glucose,Whole Blood 127 mg/dL (75-99)
[2018-03-24] MEDS: RIVAROXABAN 15 MG TAB PO SCH (17:14)
[2018-03-24] MEDS: SODIUM CHLORIDE 0.9% 1,000 ML IV SCH (17:15)
[2018-03-24 20:56] LABS: Glucose,Whole Blood 120 mg/dL (75-99)
[2018-03-24] MEDS: MELATONIN 3 MG TABLET PO SCH ×2 (21:26→21:39)
[2018-03-24] MEDS: OXcarbazepine 150 MG TAB PO SCH (21:29)
[2018-03-24] MEDS: PARoxetine 10 MG TAB PO SCH (21:29)
[2018-03-24] MEDS: MONTELUKAST 10 MG TAB PO SCH (21:38)
[2018-03-25] MEDS: HYDROcodone/APAP 5-325MG 1 EACH TAB PO PRN ×3 (03:43→21:24)
[2018-03-25] MEDS: SODIUM CHLORIDE 0.9% 1,000 ML IV SCH (03:43)
[2018-03-25] MEDS: PANTOPRAZOLE 40 MG TABLET PO SCH (06:23)
[2018-03-25] MEDS: LEVOTHYROXINE 100 MCG TAB PO SCH (06:23)
[2018-03-25] MEDS: MIDODRINE 5 MG TAB PO SCH ×3 (06:23→17:25)
[2018-03-25 06:24] LABS: Anisocytosis Slight; Basophils % (A) 0 %; Eosinophils % (A) 0 %; HCT 50.1 % (34.0-46.0); HGB 14.9 gm/dL (11.4-16.0); Hypochromasia Slight; Lymphocytes % (A) 6 %; MCHC 29.7 g/dL (31.0-37.0); MCV 83.9 fL (80.0-100.0); Mean Platelet Volume 6.6; Monocytes # (A) 0.5 k/uL (0-1.0); Monocytes % (A) 3 %; Neutrophils # (A) 14.2 k/uL (1.3-7.7); Neutrophils % (A) 90 %; Platelet Count 382 k/uL (150-450); RBC 5.97 m/uL (3.80-5.40); RDW 17.1 % (11.5-15.5); WBC 15.9 k/uL (3.8-10.6)
[2018-03-25 06:33] LABS: Glucose,Whole Blood 135 mg/dL (75-99)
[2018-03-25 06:40] LABS: Albumin 3.5 g/dL (3.5-5.0); Calcium 9.1 mg/dL (8.4-10.2); Potassium 5.4 mmol/L (3.5-5.1); Total Bilirubin 0.4 mg/dL (0.2-1.3); Total Protein 5.7 g/dL (6.3-8.2)
[2018-03-25] MEDS: INSULIN ASPART 100 UNIT/ML 1 ML 10 ML VIAL SQ SCH ×4 (06:42→21:25)
[2018-03-25] MEDS: SYMBICORT 160-4.5 MCG INHALER INHALATION SCH ×2 (07:43→19:11)
[2018-03-25] MEDS: ALPRAZolam 0.25 MG TAB PO PRN ×2 (10:10→21:23)
[2018-03-25] MEDS: AMIODARONE 100 MG TAB PO SCH (10:11)
[2018-03-25] MEDS: LURASIDONE 40 MG TAB PO SCH (10:12)
[2018-03-25] MEDS: FERROUS SULFATE 325 MG TAB PO SCH (10:12)
[2018-03-25] MEDS: NITROGLYCERIN OINT 1 INCH/GM PACKET TOPICAL SCH ×3 (10:12→23:32)
[2018-03-25] MEDS: methylPREDNISolone SOD SUCCI 40 MG/ML 1 ML VIAL IV SCH ×2 (10:12→21:25)
[2018-03-25] MEDS: METOPROLOL TARTRATE 25 MG TAB PO SCH ×2 (10:13→21:23)
[2018-03-25] MEDS: IPRATROPIUM-ALBUTEROL 3 ML NEB INHALATION SCH ×2 (10:41→11:08)
--- NOTE | 2018-03-25 11:17 | P.PN ---
<SureshceciliaAshley - Last Filed: 03/25/18 11:09> Subjective Progress Note Date: 03/25/18 This is a 67-year-old female, patient of [facility]. Patient seen and evaluated in the ER. Patient has had previous history of myocardial infarction, coronary artery disease with 4 cardiac stents, paroxysmal atrial fibrillation, hypertension hyperlipidemia and former smoker. She also has a history of COPD hypothyroidism CVA vascular dementia, trigeminal neuralgia, obstructive sleep apnea, bowel syndrome, peripheral arterial disease with stents in the lower extremities and bipolar. Patient has a history of degenerative disc disease in the spine and was scheduled to have a epidural completed with pain management in the outpatient setting. Daughter was present with patient. Patient was in the room and getting undressed and ready for the procedure she reports feeling very anxious and becoming short of breath and having chest pain across the chest. Saw blood pressure was elevated at 180. At the pain management office she received 3 nitro and aspirin and a dose of labetalol. This helped relieve patient's chest pain. She was then brought into the emergency room for further evaluation in regards to her chest pain. EKG showing sinus rhythm with PACs and right bundle audra block. First troponin was negative. Patient's last heart catheterization was in December 2017 which showed patent stent in the proximal right coronary artery, mild disease involving the ostial left main, mild disease involving the left circumflex and patent stent in the mid LAD. At that time cardiology recommended maximize medical treatment. Chest x-ray shows no acute cardiopulmonary disease. Does reveal known underlying pulmonary edema on pulmonary fibrosis and a known right upper lobe pulmonary nodule. Patient's daughter reports that her mother is unable to participate in some of the day programs that she used to due to her pain. She will prefer if patient could receive the epidural injection for her back pain before restarting the Xarelto. Patient is also reporting during this chest pain episode that she had right-sided numbness which she's had on previous strokes. She has been off of her Xarelto for 3 days for the spinal epidural procedure. Patient admits to some nausea. Denies any vomiting bowel movement changes or urinary symptoms. Denies any cough fever or chills or sweats. Denies any facial droop or slurred speech. She also reports having some right lower abdominal pain. Daughter reports this is consistent with patient's history of IBS. Patient also has a history of chronic hypoxic respiratory failure and has been on 3 L oxygen at home. Cardiology and pain service has been consulted. Patient daughter reports that her mother had been on Ativan and Westfield previously after her stay at [facility] in December. However, her PCP will not refill his medications and wanted her mother to stop taking them. She has only been using Tylenol for pain control. On 03/16/2018 patient is currently resting. Planning for epidural injection this afternoon. Ultrasound of abdomen completed showing no acute abdominal process. Per cardiology 2-D echo has been ordered and aspirin has been decreased to [address] of abdomen and pelvis has been ordered due to recent weight loss. Amalyse and lipase levels have been ordered. Pulmonary services have been consulted. 03/17/2018 patient is status post lumbar epidural injection. She is reporting improvement in her back pain and chest pain. Xarelto will be resumed today. She was also started on doxycycline and prednisone per pulmonary service for bronchitis. Patient reports a good appetite. Computed tomography scan of the abdomen shows no acute changes. Abdominal ultrasound was negative. Patient was hypotensive this morning she is on Midodrine and repeat blood pressure show improvement 109/62. Patient denies any nausea or vomiting. Denies any bowel movement changes or urinary symptoms. She reports that she starting to feel better. 03/18/2018 patient reports improvement in her back pain. She is still having some chest pains that are reproducible with palpation. Xarelto was restarted yesterday. Patient worked with physical therapy this morning and became very short of breath. Oxygen had been increased to 10 L. She was able to recover and then option came back down to 6 L at 96%. She has been on 3 L of oxygen at home. She is complaining of constipation bowel movements been very small. She had a slight increase in her liver enzymes AST 74 and ALT 84 Lipitor discontinued. Patient has been cleared by cardiology and pulmonary service for discharge on 03/19/2018 patient is alert and oriented in no distress, she reports improvement in her back pain. Patient worked with physical therapy this morning and became very short of breath. Oxygen had been increased to 10 L. yesterday She was able to recover and then option came back down to 6 L at 96%. Now she is on BiPAP She has been on 3 L of oxygen at home. She is complaining of constipation otherwise she denies any complaints. On 03/20/2018 patient is alert and oriented in no apparent distress she was seen and examined on 6 floor she was refusing BiPAP yesterday and now she is maintained on high flow oxygen she denies any chest pain or shortness of breath she denies any palpitation or cough there is no nausea or vomiting no abdominal pain no diarrhea and no urinary symptoms. 03/21/2018 patient still requiring high flow oxygen via AIRVO at 35L. patient reports shortness of breath when she was getting cleaned up earlier this morning. She denies any chest pains. Denies any nausea or vomiting. Denies bowel movement changes or urinary symptoms. She was started on Solu-Medrol over the weekend. 03/22/2018 yesterday patient was placed on Pulmicort and Perforomist. She had a slight reaction became flushed some shortness of breath and went into atrial fibrillation. Patient does have a known history of atrial fibrillation. Pulmicort and Perforomist have been discontinued. Patient has been seen by pulmonary service and they have ordered DuoNeb updrafts and Symbicort was restarted. CTA was negative for PE did show cardiomegaly and severe emphysema. Patient had echo with bubble study done results are pending. She is still on the earlobe oh FiO2 of 50% with flow rate of 35. On 03/23/2018 patient currently resting comfortably bed. Patient remains on Airvo at 40%. Patient remains on IV steroids. Patient denies chest pain or shortness of breath. 03/24/2018 patient having multiple stools through the night. Patient reports his stools are more mushy than liquidy. Stool for C. diff will be ordered. Potassium remains at 5.6. She did receive her potassium supplement yesterday. Even with elevated potassium. Potassium supplement discontinued. Kayexalate 30 g ordered but patient is having diarrhea nursing staff gave 15 g. We'll repeat a potassium level at 12:00. Sodium level dropped to 131. Patient denies any nausea or vomiting. Denies any chest pain. Reports in the chest pain and back pain. Denies any burning with urination. Still on the AIRVO at 40% 03/25/2018 patient is reporting that she still having a lot of stools. Stool has been ordered for C. diff and still has not been collected. Discussed with nursing staff to please collect the stool sample. Also patient's potassium is at 5.4. She is still eating potassium-rich foods. Again instructed patient and nursing staff the patient has to avoid potassium food. Patient is off of the AIRVO and on on 4 L of oxygen satting at 93%. Does report some improvement in her shortness of breath. Apparently she again was having some right sided weakness. Neurology has ordered an MRI of the brain. Discussed case with case planner. Paperwork has been submitted for the noninvasive ventilator. Objective - Vital Signs Vital signs: Vital Signs Temp 97.8 F 03/25/18 00:00 Pulse 85 03/25/18 08:30 Resp 20 03/25/18 04:00 BP 122/87 03/25/18 04:00 Pulse Ox 93 L 03/25/18 04:00 Intake & Output 03/24/18 03/25/18 03/25/18 18:59 06:59 18:59 Intake Total 480 Output Total 300 Balance 480 -300 Weight 74.8 kg Intake: Oral 480 Output: Urine 300 Other: Voiding Method Bedside Commode Bedside Commode # Voids 1 2 # Bowel Movements 0 1 - Exam Head normocephalic Neck supple Lungs crackles at bases Heart irregular. A. fib on monitor heart rate 120 with activity Abdomen is soft nontender nondistended positive bowel sounds no hepatosplenomegaly Extremities no edema Neuro alert and orientated to 3 - Labs CBC & Chem 7: 03/25/18 05:47 03/25/18 05:47 Labs: Abnormal Lab Results - Last 24 Hours (Table) 03/24/18 03/24/18 03/24/18 Range/Units 11:23 11:54 16:22 WBC (3.8-10.6) k/uL RBC (3.80-5.40) m/uL Hct (34.0-46.0) % MCHC (31.0-37.0) g/dL RDW (11.5-15.5) % Neutrophils # (1.3-7.7) k/uL Sodium (137-145) mmol/L Potassium 5.4 H (3.5-5.1) mmol/L BUN (7-17) mg/dL Glucose (74-99) mg/dL POC Glucose (mg/dL) 135 H 127 H (75-99) mg/dL Total Protein (6.3-8.2) g/dL 03/24/18 03/24/18 03/25/18 Range/Units 18:31 20:54 05:47 WBC 15.9 H (3.8-10.6) k/uL RBC 5.97 H (3.80-5.40) m/uL Hct 50.1 H (34.0-46.0) % MCHC 29.7 L (31.0-37.0) g/dL RDW 17.1 H (11.5-15.5) % Neutrophils # 14.2 H (1.3-7.7) k/uL Sodium (137-145) mmol/L Potassium 5.4 H (3.5-5.1) mmol/L BUN (7-17) mg/dL Glucose (74-99) mg/dL POC Glucose (mg/dL) 120 H (75-99) mg/dL Total Protein (6.3-8.2) g/dL 03/25/18 03/25/18 Range/Units 05:47 06:31 WBC (3.8-10.6) k/uL RBC (3.80-5.40) m/uL Hct (34.0-46.0) % MCHC (31.0-37.0) g/dL RDW (11.5-15.5) % Neutrophils # (1.3-7.7) k/uL Sodium 133 L (137-145) mmol/L Potassium 5.4 H (3.5-5.1) mmol/L BUN 28 H (7-17) mg/dL Glucose 128 H (74-99) mg/dL POC Glucose (mg/dL) 135 H (75-99) mg/dL Total Protein 5.7 L (6.3-8.2) g/dL Assessment and Plan Assessment: 1. Chest pain: Likely muscle skeletal secondary to the tracheobronchitis. EKG sinus rhythm with PACs and right bundle audra block. Cardiac enzymes negative 3 sets. Patient seen by cardiology echo showing an EF of 50-55%. They've decreased aspirin to 81 mg daily. Cardiology has signed off 2. Chronic lower back pain with degenerative disc disease. Status post lumbar epidural and injection. Back pain improved. Continue [place] 3. Right-sided numbness during the chest pain episode. Now resolved. Patient has been off of Xarelto for 3 days. Computed tomography scan of the brain showing right frontal lobe encephalomalcia without change compared to old exam. no acute intracranial abnormality. Patient apparently reported again a right- sided sensation loss. Neurology consulted and an MRI of the brain was ordered 4. Right lower quadrant abdominal pain. Improved. Abdominal ultrasound and computed tomography scan the abdomen showing no acute abnormality. Amylase lipase and LFTs all within normal range. Urinalysis negative no evidence of UTI 5. History of paroxysmal atrial fibrillation on amiodarone. Continue Xarelto 6. Essential hypertension. Elevated blood pressure outpatient receiving extra labetalol. Patient usually has hypotension and is on midodrine 7. Right upper lobe pulmonary nodule and possible pulmonary fibrosis being followed outpatient with pulmonary service 8. Acute on chronic Chronic hypoxic respiratory failure home O2 dependent usually uses 3 L of oxygen. Patient currently requiring 6 L. Possibly related to her bronchitis and COPD. Patient currently on doxycycline and prednisone 9. Acute COPD exacerbation: Continue IV Solu-Medrol. patient refusing nebulizer treatments. She is now off the AIRVO and on 4L of oxygen satting at 93%. 10. History of CVA 11. history of myocardial infarction and coronary artery disease with previous cardiac stents 12. History of bipolar continue Latuda and Trileptal 13. History of Renal cancer status post right nephrectomy 14. Acute tracheobronchitis: Seen by pulmonary service started on doxycycline and IV Solu-Medrol 15. Mildly elevated LFTs. Have improved. Discontinue Lipitor. Repeat labs in a.m. 16. Constipation now resolved. Patient now having loose stools. Discontinue Colace and FiberCon. Awaiting stool for C. diff 17. Hyperkalemia: Potassium 5.6 Discontinue potassium supplement. Kayexalate 30 g initially ordered for patient. However she is having loose is stools. Also she'll receive Kayexalate 15 g. Repeat potassium level at noon patient still having some hyperkalemia potassium 5.4. She is eating potassium-rich foods. Patient has been educated to avoid these foods as well as the nursing staff. 18. Hyponatremia: Sodium 131 likely related to patient's diarrhea. Sodium has increased to 133. We will restart normal saline at 50 mL an hour Continue physical therapy GI prophylaxis Protonix and DVT prophylaxis Xarelto When patient is stable for discharge she'll be going home with home care I performed an examination of the patient and discussed their management with the physician Flyer Repairer. I have reviewed the Physician Flyer Repairer's notes and agree with the documented findings and plan of care Dr. Kelly is on vacation starting March 22. Dr Hutchinson and Dr. TIANNA Rodriguez are covering the service <Florinda Hutchinson A - Last Filed: 03/25/18 14:26> Objective - Vital Signs Vital signs: Vital Signs Temp 97.8 F 03/25/18 00:00 Pulse 87 03/25/18 12:00 Resp 18 03/25/18 12:00 BP 136/91 03/25/18 12:00 Pulse Ox 97 03/25/18 12:00 Intake & Output 03/24/18 03/25/18 03/25/18 18:59 06:59 18:59 Intake Total 480 200 Output Total 300 Balance 480 -300 200 Weight 74.8 kg Intake: Oral 480 200 Output: Urine 300 Other: Voiding Method Bedside Commode Bedside Commode # Voids 1 2 # Bowel Movements 0 1 - Labs CBC & Chem 7: 03/25/18 05:47 03/25/18 05:47 Labs: Abnormal Lab Results - Last 24 Hours (Table) 03/24/18 03/24/18 03/24/18 Range/Units 16:22 18:31 20:54 WBC (3.8-10.6) k/uL RBC (3.80-5.40) m/uL Hct (34.0-46.0) % MCHC (31.0-37.0) g/dL RDW (11.5-15.5) % Neutrophils # (1.3-7.7) k/uL Sodium (137-145) mmol/L Potassium 5.4 H (3.5-5.1) mmol/L BUN (7-17) mg/dL Glucose (74-99) mg/dL POC Glucose (mg/dL) 127 H 120 H (75-99) mg/dL Total Protein (6.3-8.2) g/dL 03/25/18 03/25/18 03/25/18 Range/Units 05:47 05:47 06:31 WBC 15.9 H (3.8-10.6) k/uL RBC 5.97 H (3.80-5.40) m/uL Hct 50.1 H (34.0-46.0) % MCHC 29.7 L (31.0-37.0) g/dL RDW 17.1 H (11.5-15.5) % Neutrophils # 14.2 H (1.3-7.7) k/uL Sodium 133 L (137-145) mmol/L Potassium 5.4 H (3.5-5.1) mmol/L BUN 28 H (7-17) mg/dL Glucose 128 H (74-99) mg/dL POC Glucose (mg/dL) 135 H (75-99) mg/dL Total Protein 5.7 L (6.3-8.2) g/dL Assessment and Plan Assessment: Patient seen and examined. Patient is angry and states she is still having diarrhea. She is off Airvo and on 4L NC with O2 saturation 94%. Monitor K. Neurology evaluation. MRI shows no acute process - old infarct/white matter changes. Awaiting insurance approval for non-invasive ventilator. Patient would likely benefit from LTAC placement. PT and OT. Continue Symbicort, try Spiriva. ~Florinda Hutchinson DO
--- NOTE | 2018-03-25 11:26 | MR ---
EXAMINATION TYPE: MR brain wo con DATE OF EXAM: 03/25/2018 COMPARISON: 11/09/2017 and 11/09/2016 HISTORY: c/o of right sided pain, decreased sensation, weak TECHNIQUE: Multiplanar, multisequence images of the brain and brainstem is performed without intravenous contras t. FINDINGS: Diffusion weighted images demonstrate no evidence of a recent infarct or other diffusion ab normality. Encephalomalacia within the right frontal white matter is similar to the prior of 11/10/19 18 with surrounding gliosis. There is similar-appearing burden nonspecific white matter change within the temporal lobes and supratentorial and periventricular/subcortical white matter of the parietal a nd frontal lobes. There is no extra-axial fluid collection. The ventricular system and cisternal spac es are symmetrically prominent with frontal and temporal atrophy greater than parietal and occipital atrophy. Ventricles are similar in size to the prior. Midline structures demonstrate normal morphology. The craniocervical junction appears within normal limits. The dural venous sinuses appear patent. There is circumferential mucosal thickening within t he left maxillary sinus as seen on the prior with an air-fluid level. Mild mucosal thickening within the ethmoid sinuses is also seen. 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 There is an a bsence of the flow-void within the right petrous portion and cavernous portion of the internal caroti d artery related to the total occlusion, chronic. IMPRESSION: 1. No acute infarct. Encephalomalacia within the right frontal lobe from prior infarct in the distrib ution of branch vessel of the middle cerebral artery. Additionally there is moderate burden nonspecif ic white matter change predominating in a frontotemporal distribution with associated frontotemporal atrophy, similar to the prior exams. 2. Extensive opacification of the left mastoid air cells that should be correlated with point tendern ess to evaluate for acute on chronic mastoiditis although this was present on the priors dating back to 2017. 3. Chronic occlusion of the right internal carotid artery.
[2018-03-25 11:58] LABS: Glucose,Whole Blood 99 mg/dL (75-99)
[2018-03-25] MEDS ORDERED: MD COMMUNICATION TO PHARMACY 1 EACH MISC PO PRN (14:20)
[2018-03-25] MEDS ORDERED: ALBUTEROL NEBULIZED 2.5 MG/3 ML INHALATION PRN (14:44)
[2018-03-25] MEDS: ALBUTEROL NEBULIZED 2.5 MG/3 ML INHALATION SCH ×2 (15:48→19:11)
[2018-03-25] MEDS: TIOTROPIUM 18 MCG/PUFF INHALER INHALATION SCH (15:48)
[2018-03-25 17:15] LABS: Glucose,Whole Blood 137 mg/dL (75-99)
[2018-03-25] MEDS: RIVAROXABAN 15 MG TAB PO SCH (17:25)
--- NOTE | 2018-03-25 18:55 | P.CNNES ---
History of Present Illness Consult date: 03/25/18 Requesting physician: Abelardo Kelly Reason for Consult: Right-sided sensory deficit History of Present Illness: Patient is a pleasant 67-year-old female is being evaluated by the neurology service on 03/25/2018 per the request of Dr. Kelly for right-sided sensory deficit. Patient has a history of chronic back pain and lumbar disc disease. [facility] and was ready to have epidural therapy when she became short of breath and complained of chest pain. Patient was given nitro in the office along with labetalol. Patient's chest pain subsided and she was brought to [facility]. Patient had negative troponins 3. Cardiology was consulted and has cleared patient. Cardiology stating patient's pain was most likely musculoskeletal in nature. Patient does have history of IN as well as stent placements. Patient also has history of CVA with right-sided weakness and paresthesias. Patient states current right-sided weakness and paresthesia is similar to previous stroke. Patient also reports history of seizure activity described as tonic-clonic seizures. Patient states her last seizure was approximately one year ago. She' s sees Dr. Lee as her neurologist in the outpatient setting. She currently takes Trileptal 150 mg daily at bedtime. CT of the brain was done on admission which showed right frontal lobe encephalomalacia without change as compared to old exam. There was no acute intracranial abnormality. Due to ongoing right- sided sensory deficit an MRI was ordered. MRI of the brain shows no acute infarct. It does show encephalomalacia within the right frontal lobe which is stable as compared to last MRI. Vital signs show temperature 97.6, pulse 88, respiratory rate 17, blood pressure 121/81, and O2 saturation 95% on 3 L nasal cannula. Latest lab work shows WBC 15.9, RBC 5.97, hemoglobin 14.9, and hematocrit of 50.1. Sodium 133, potassium 5.4, BUN 28, glucose 128. At the time of my evaluation, patient is resting comfortably in bed and appears to be in no acute distress. Review of Systems REVIEW OF SYSTEMS: Otherwise unremarkable and noncontributory. Past Medical History Past Medical History: Atrial Fibrillation, Asthma, Coronary Artery Disease (CAD) , Cancer, COPD, CVA/TIA, Eye Disorder, GERD/Reflux, Hyperlipidemia, Hypertension , Memory Impairment, Myocardial Infarction (IN), Osteoarthritis (OA), Respiratory Disorder, Sleep Apnea/CPAP/BIPAP, Thyroid Disorder, Vascular Disorder Additional Past Medical History / Comment(s): febrile, recent UTI, hypotensive. Other hx: Home O2 prn but ATC lately, CVA x 3 with R arm and R leg weakness , vascular dementia, R trigeminal neuralgia, R eye astigmatism, occluded JOSE ALEJANDRO, PVD, past htn but b/ps running low now, IBS, diarrhea/constipation, chronic abdominal pain, chronic back pain, migraines-none recently, one hip higher, RLS , tremors, CHANDU without device (unable to tolerate), UTIs, hypothyroid, nasopharyngeal inflammatory mass, TMJ yrs ago, R kidney cancer and uterine cancer with surgeries. Last Myocardial Infarction Date:: 11/03/14 History of Any Multi-Drug Resistant Organisms: None Reported Date of last positivie culture/infection: None MDRO Source:: None Past Surgical History: Adenoidectomy, Bladder Surgery, Cholecystectomy, Ear Surgery, Heart Catheterization With Stent, Hysterectomy, Orthopedic Surgery, Tonsillectomy Additional Past Surgical History / Comment(s): 11/28/14 PTCA with stents, left CAROTID ENDARTERECTOMY, MULTIPLE BILATERAL STENTS IN LOWER EXTREMITIES, R elbow surgery as a child, R ear surgery for blockage, bilateral ankle arthroscopies, bilateral knee arthroscopies, deviated septal surgery, L great toe pinned, colonoscopies/benign polypectomy, R nephrectomy and partial bladder removal, skin lesion from nose. Past Anesthesia/Blood Transfusion Reactions: Motion Sickness Date of Last Stent Placement:: 10/2014 Smoking Status: Former smoker - Past Family History Mother Family Medical History: COPD Additional Family Medical History / Comment(s): Mother is . She from respiratory failure. Father Family Medical History: Coronary Artery Disease (CAD), Myocardial Infarction (IN ) Additional Family Medical History / Comment(s): Father had gout Medications and Allergies Home Medications Medication Instructions Recorded Confirmed Type PARoxetine HCL 30 mg PO HS 07/02/14 03/15/18 History OXcarbazepine [Trileptal] 150 mg PO HS 11/04/14 03/15/18 History Melatonin 3 mg PO HS 03/05/16 03/15/18 History Atorvastatin Calcium [Lipitor] 20 mg PO HS 06/13/17 03/15/18 History Calcium Polycarbophil [Fibercon] 1,250 mg PO DAILY 06/13/17 03/15/18 History Ferrous Sulfate [Iron (65 MG 325 mg PO DAILY 06/13/17 03/15/18 History Elemental)] Levothyroxine Sodium [Synthroid] 100 mcg PO DAILY@0600 06/13/17 03/15/18 History Lurasidone HCl [Latuda] 20 mg PO DAILY 06/13/17 03/15/18 History Montelukast [Singulair] 10 mg PO HS 06/13/17 03/15/18 History Pantoprazole Sodium [Protonix] 40 mg PO DAILY 06/13/17 03/15/18 History Potassium Chloride [Klor-Con 10] 10 meq PO DAILY 06/13/17 03/15/18 History Rivaroxaban [Xarelto] 15 mg PO W/SUPPER #30 tab 06/16/17 03/15/18 Rx Nitroglycerin Sl Tabs [Nitrostat] 0.4 mg SUBLINGUAL Q5M PRN tab 12/01/17 Rx Midodrine [ProAmatine] 5 mg PO TID #90 tablet 12/28/17 03/15/18 Rx Fluticasone/Vilanterol [Breo 1 puff INHALATION RT-DAILY 01/09/18 03/15/18 History Ellipta 100-25 Mcg Inhaler] Amiodarone [Cordarone] 100 mg PO DAILY 03/15/18 03/15/18 History Metoprolol Tartrate [Lopressor] 25 mg PO BID 03/15/18 03/15/18 History Omeprazole [PriLOSEC] 20 mg PO DAILY 03/15/18 03/15/18 History Allergies Allergy/AdvReac Type Severity Reaction Status Date / Time albuterol Allergy Rash/Hives Verified 03/16/18 12:39 latex Allergy Rash/Hives Verified 03/16/18 12:39 Penicillins Allergy Unknown Verified 03/16/18 12:39 Childhood Physical Examination - Vital Signs Vital Signs: Vital Signs Temp Pulse Pulse Resp BP BP BP 03/25/18 16:00 97.6 F 88 17 121/81 03/25/18 12:00 87 18 136/91 03/25/18 08:30 85 18 143/77 03/25/18 04:00 86 18 122/87 03/25/18 03:50 03/25/18 00:00 97.8 F 83 18 108/88 03/24/18 21:28 03/24/18 21:00 98.5 F 86 18 115/74 Pulse Ox 03/25/18 16:00 95 03/25/18 12:00 97 03/25/18 08:30 95 03/25/18 04:00 93 L 03/25/18 03:50 86 L 03/25/18 00:00 93 L 03/24/18 21:28 93 L 03/24/18 21:00 93 L Intake and Output 03/25/18 03/25/18 03/25/18 06:59 14:59 22:59 Intake Total 550 480 Output Total 300 Balance -300 550 480 Intake: Intake, IV Titration 350 Amount Sodium Chloride 0.9% 1, 350 000 ml @ 50 mls/hr IV . Q20H [facility] Rx#:[id number] Oral 200 480 Output: Urine 300 Other: Voiding Method Bedside Commode # Voids 2 # Bowel Movements 1 Weight 74.8 kg PHYSICAL EXAM: GENERAL APPEARANCE: Patient is a well-developed, female who appears to be in no acute distress. HEENT: Normocephalic, atraumatic, no facial asymmetry is seen. Neck is supple with no masses felt. CARDIOVASCULAR: Regular rate and rhythm. ABDOMEN: Nontender, nondistended. EXTREMITIES: Show no edema or clubbing. NEUROLOGICAL EXAM: Patient is awake, alert, and oriented 3. Speech and language are normal. Strength is 5/5 in left upper and lower extremity and 4+/ 5 in right upper and lower extremity. Sensory exam is decreased to light touch in right upper and lower extremities as well as right-sided facial deficit. No facial asymmetry is seen on cranial nerve testing. No pronator drift is noted. No tremors or seizure-like activity is seen. Results - Laboratory Findings CBC and BMP: 03/25/18 05:47 03/25/18 05:47 Abnormal Lab Findings: Abnormal Labs 03/15/18 03/15/18 03/15/18 12:50 12:50 12:50 WBC 11.3 H RBC Hct MCHC 30.9 L RDW 17.5 H Neutrophils # 7.8 H Lymphocytes # ABG pO2 ABG HCO3 ABG Total CO2 ABG O2 Saturation Sodium Potassium Chloride 109 H Carbon Dioxide 20 L BUN Creatinine Glucose POC Glucose (mg/dL) Hemoglobin A1c AST ALT Total Creatine Kinase 23 L Total Protein HDL Cholesterol 03/15/18 03/16/18 03/16/18 18:35 00:23 05:27 WBC RBC Hct MCHC RDW Neutrophils # Lymphocytes # ABG pO2 ABG HCO3 ABG Total CO2 ABG O2 Saturation Sodium Potassium Chloride Carbon Dioxide BUN 18 H Creatinine 1.25 H Glucose POC Glucose (mg/dL) Hemoglobin A1c AST ALT Total Creatine Kinase 23 L 22 L Total Protein 6.0 L HDL Cholesterol 38 L 03/16/18 03/17/18 03/17/18 05:27 05:52 05:52 WBC 11.0 H RBC Hct MCHC 29.5 L 29.6 L RDW 17.1 H 16.9 H Neutrophils # 9.6 H Lymphocytes # ABG pO2 ABG HCO3 ABG Total CO2 ABG O2 Saturation Sodium Potassium Chloride Carbon Dioxide BUN Creatinine Glucose 126 H POC Glucose (mg/dL) Hemoglobin A1c AST ALT Total Creatine Kinase Total Protein HDL Cholesterol 03/18/18 03/18/18 03/19/18 05:52 05:52 06:50 WBC 16.3 H 13.8 H RBC Hct MCHC 29.9 L 30.1 L RDW 17.0 H 17.3 H Neutrophils # 14.4 H 12.4 H Lymphocytes # ABG pO2 ABG HCO3 ABG Total CO2 ABG O2 Saturation Sodium Potassium Chloride Carbon Dioxide BUN 18 H Creatinine Glucose 119 H POC Glucose (mg/dL) Hemoglobin A1c AST 74 H ALT 84 H Total Creatine Kinase Total Protein HDL Cholesterol 03/19/18 03/20/18 03/20/18 06:50 06:34 06:34 WBC 15.2 H RBC Hct MCHC 30.2 L RDW 17.2 H Neutrophils # 13.3 H Lymphocytes # ABG pO2 ABG HCO3 ABG Total CO2 ABG O2 Saturation Sodium 135 L Potassium 5.3 H Chloride 97 L Carbon Dioxide BUN 18 H 19 H Creatinine Glucose 133 H 147 H POC Glucose (mg/dL) Hemoglobin A1c AST 40 H ALT 67 H 71 H Total Creatine Kinase Total Protein HDL Cholesterol 03/20/18 03/20/18 03/20/18 06:34 07:52 11:36 WBC RBC Hct MCHC RDW Neutrophils # Lymphocytes # ABG pO2 ABG HCO3 ABG Total CO2 ABG O2 Saturation Sodium Potassium Chloride Carbon Dioxide BUN Creatinine Glucose POC Glucose (mg/dL) 209 H 201 H Hemoglobin A1c 6.2 H AST ALT Total Creatine Kinase Total Protein HDL Cholesterol 03/20/18 03/20/18 03/21/18 16:47 21:36 05:55 WBC 15.9 H RBC 5.54 H Hct 46.7 H MCHC 30.6 L RDW 17.1 H Neutrophils # 14.1 H Lymphocytes # ABG pO2 ABG HCO3 ABG Total CO2 ABG O2 Saturation Sodium Potassium Chloride Carbon Dioxide BUN Creatinine Glucose POC Glucose (mg/dL) 199 H 226 H Hemoglobin A1c AST ALT Total Creatine Kinase Total Protein HDL Cholesterol 03/21/18 03/21/18 03/21/18 05:55 06:37 11:37 WBC RBC Hct MCHC RDW Neutrophils # Lymphocytes # ABG pO2 ABG HCO3 ABG Total CO2 ABG O2 Saturation Sodium 133 L Potassium Chloride 94 L Carbon Dioxide BUN 22 H Creatinine Glucose 146 H POC Glucose (mg/dL) 150 H 133 H Hemoglobin A1c AST ALT 68 H Total Creatine Kinase Total Protein HDL Cholesterol 03/21/18 03/21/18 03/21/18 16:33 20:55 21:50 WBC RBC Hct MCHC RDW Neutrophils # Lymphocytes # ABG pO2 ABG HCO3 ABG Total CO2 ABG O2 Saturation Sodium Potassium Chloride Carbon Dioxide BUN Creatinine Glucose POC Glucose (mg/dL) 282 H 189 H Hemoglobin A1c AST ALT Total Creatine Kinase <20 L Total Protein HDL Cholesterol 03/22/18 03/22/18 03/22/18 05:50 05:53 05:53 WBC 15.3 H RBC 5.96 H Hct 49.6 H MCHC 30.2 L RDW 17.1 H Neutrophils # 14.0 H Lymphocytes # 0.8 L ABG pO2 ABG HCO3 ABG Total CO2 ABG O2 Saturation Sodium 134 L Potassium Chloride Carbon Dioxide BUN 29 H Creatinine Glucose 146 H POC Glucose (mg/dL) 140 H Hemoglobin A1c AST ALT Total Creatine Kinase Total Protein HDL Cholesterol 03/22/18 03/22/18 03/22/18 11:37 13:47 16:35 WBC RBC Hct MCHC RDW Neutrophils # Lymphocytes # ABG pO2 72 L ABG HCO3 27 H ABG Total CO2 29 H ABG O2 Saturation 93.4 L Sodium Potassium Chloride Carbon Dioxide BUN Creatinine Glucose POC Glucose (mg/dL) 167 H 142 H Hemoglobin A1c AST ALT Total Creatine Kinase Total Protein HDL Cholesterol 03/22/18 03/23/18 03/23/18 20:55 05:33 05:33 WBC 16.4 H RBC 6.34 H Hct 53.3 H MCHC 29.9 L RDW 17.0 H Neutrophils # 14.9 H Lymphocytes # 0.9 L ABG pO2 ABG HCO3 ABG Total CO2 ABG O2 Saturation Sodium 134 L Potassium 5.6 H Chloride Carbon Dioxide BUN 29 H Creatinine Glucose 132 H POC Glucose (mg/dL) 157 H Hemoglobin A1c AST ALT Total Creatine Kinase Total Protein 6.2 L HDL Cholesterol 03/23/18 03/23/18 03/23/18 06:13 11:07 16:21 WBC RBC Hct MCHC RDW Neutrophils # Lymphocytes # ABG pO2 ABG HCO3 ABG Total CO2 ABG O2 Saturation Sodium Potassium Chloride Carbon Dioxide BUN Creatinine Glucose POC Glucose (mg/dL) 137 H 163 H 117 H Hemoglobin A1c AST ALT Total Creatine Kinase Total Protein HDL Cholesterol 03/23/18 03/24/18 03/24/18 21:06 05:56 05:56 WBC 14.0 H RBC 5.75 H Hct 47.8 H MCHC RDW 17.0 H Neutrophils # 11.5 H Lymphocytes # ABG pO2 ABG HCO3 ABG Total CO2 ABG O2 Saturation Sodium 131 L Potassium 5.6 H Chloride 96 L Carbon Dioxide BUN 31 H Creatinine Glucose POC Glucose (mg/dL) 181 H Hemoglobin A1c AST ALT Total Creatine Kinase Total Protein 5.7 L HDL Cholesterol 03/24/18 03/24/18 03/24/18 11:23 11:54 16:22 WBC RBC Hct MCHC RDW Neutrophils # Lymphocytes # ABG pO2 ABG HCO3 ABG Total CO2 ABG O2 Saturation Sodium Potassium 5.4 H Chloride Carbon Dioxide BUN Creatinine Glucose POC Glucose (mg/dL) 135 H 127 H Hemoglobin A1c AST ALT Total Creatine Kinase Total Protein HDL Cholesterol 03/24/18 03/24/18 03/25/18 18:31 20:54 05:47 WBC 15.9 H RBC 5.97 H Hct 50.1 H MCHC 29.7 L RDW 17.1 H Neutrophils # 14.2 H Lymphocytes # ABG pO2 ABG HCO3 ABG Total CO2 ABG O2 Saturation Sodium Potassium 5.4 H Chloride Carbon Dioxide BUN Creatinine Glucose POC Glucose (mg/dL) 120 H Hemoglobin A1c AST ALT Total Creatine Kinase Total Protein HDL Cholesterol 03/25/18 03/25/18 03/25/18 05:47 06:31 17:06 WBC RBC Hct MCHC RDW Neutrophils # Lymphocytes # ABG pO2 ABG HCO3 ABG Total CO2 ABG O2 Saturation Sodium 133 L Potassium 5.4 H Chloride Carbon Dioxide BUN 28 H Creatinine Glucose 128 H POC Glucose (mg/dL) 135 H 137 H Hemoglobin A1c AST ALT Total Creatine Kinase Total Protein 5.7 L HDL Cholesterol Assessment and Plan Plan: Impression: 1. Right-sided paresthesias 2. Right-sided weakness 3. Atypical chest pain 4. Chronic back pain 5. History of paroxysmal atrial fibrillation on Xarelto 6. COPD 7. History of CVA with right-sided weakness 8. CAD/history of IN/stents 9. Bipolar disorder 10. Hyperkalemia 11. Hyponatremia 12. History of seizure disorder Recommendations: It does appear patient has right-sided weakness and paresthesias including facial paresthesia on the right. Patient states this is similar to what she had when she had her stroke year ago. Patient has chronic back pain and was holding her Xarelto for lumbar procedure. She is now back on Xarelto following lumbar epidurals. MRI of the brain was done which showed no acute infarct. MRI of the brain showed encephalomalacia within the right frontal lobe from prior infarct in the distribution of the middle cerebral artery. 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 Lipid panel is within normal limits except for low HDL of 38. Due to patient's hypoxia, CTA of the chest was done which showed no evidence for pulmonary embolism. I will order an EEG and a serum homocysteine level. History seizure disorder, continue patient on current dose of Trileptal as she has been seizure-free for the last year. I recommend PT OT to evaluate and treat. Continue neurological checks. Continue seizure precautions. I will continue to follow with you. Further recommendations to follow. Thank you for allowing me to participate in the care of your patient. Feel free to call with any questions or concerns. I performed an examination of the patient and discussed the management with the DECKHAND TUNA BOAT. I have reviewed the DECKHAND TUNA BOAT notes and agree with the findings and plan of care.
[2018-03-25 21:07] LABS: Glucose,Whole Blood 104 mg/dL (75-99)
[2018-03-25] MEDS: MELATONIN 3 MG TABLET PO SCH (21:23)
[2018-03-25] MEDS: PARoxetine 10 MG TAB PO SCH (21:24)
[2018-03-25] MEDS: OXcarbazepine 150 MG TAB PO SCH (21:24)
[2018-03-25] MEDS: MONTELUKAST 10 MG TAB PO SCH (21:24)
[2018-03-26 06:00] LABS: Glucose,Whole Blood 129 mg/dL (75-99)
[2018-03-26] MEDS: INSULIN ASPART 100 UNIT/ML 1 ML 10 ML VIAL SQ SCH ×4 (06:27→21:49)
[2018-03-26] MEDS: LEVOTHYROXINE 100 MCG TAB PO SCH (06:36)
[2018-03-26] MEDS: MIDODRINE 5 MG TAB PO SCH ×3 (06:36→18:05)
[2018-03-26] MEDS: PANTOPRAZOLE 40 MG TABLET PO SCH (06:36)
[2018-03-26 06:48] LABS: Anisocytosis Slight; Basophils % (A) 0 %; Eosinophils % (A) 0 %; HCT 47.9 % (34.0-46.0); HGB 14.3 gm/dL (11.4-16.0); Hypochromasia Slight; Lymphocytes # (A) 0.8 k/uL (1.0-4.8); Lymphocytes % (A) 7 %; MCH 25.2 pg (25.0-35.0); MCHC 29.9 g/dL (31.0-37.0); Mean Platelet Volume 6.7; Monocytes # (A) 0.2 k/uL (0-1.0); Monocytes % (A) 2 %; Neutrophils # (A) 9.4 k/uL (1.3-7.7); Neutrophils % (A) 90 %; Platelet Count 360 k/uL (150-450); RDW 17.2 % (11.5-15.5); WBC 10.5 k/uL (3.8-10.6)
[2018-03-26 06:55] LABS: Albumin 3.4 g/dL (3.5-5.0); Calcium 9.1 mg/dL (8.4-10.2); Potassium 5.2 mmol/L (3.5-5.1); Total Bilirubin 0.3 mg/dL (0.2-1.3); Total Protein 5.6 g/dL (6.3-8.2)
[2018-03-26] MEDS: SODIUM CHLORIDE 0.9% 1,000 ML IV SCH ×2 (08:18→22:33)
[2018-03-26] MEDS: NITROGLYCERIN OINT 1 INCH/GM PACKET TOPICAL SCH ×3 (08:19→23:17)
[2018-03-26] MEDS: AMIODARONE 100 MG TAB PO SCH (08:19)
[2018-03-26] MEDS: METOPROLOL TARTRATE 25 MG TAB PO SCH ×2 (08:20→21:02)
[2018-03-26] MEDS: FERROUS SULFATE 325 MG TAB PO SCH (08:20)
[2018-03-26] MEDS: LURASIDONE 40 MG TAB PO SCH (08:20)
[2018-03-26] MEDS: methylPREDNISolone SOD SUCCI 40 MG/ML 1 ML VIAL IV SCH ×2 (08:21→21:03)
[2018-03-26] MEDS: SYMBICORT 160-4.5 MCG INHALER INHALATION SCH ×2 (08:23→19:41)
[2018-03-26] MEDS: ALBUTEROL NEBULIZED 2.5 MG/3 ML INHALATION SCH ×4 (08:23→19:49)
[2018-03-26] MEDS: TIOTROPIUM 18 MCG/PUFF INHALER INHALATION SCH (08:23)
[2018-03-26 11:59] LABS: Glucose,Whole Blood 129 mg/dL (75-99)
--- NOTE | 2018-03-26 13:03 | PN ---
PROGRESS NOTE She is sleepy but arousable. She is not in respiratory distress. On physical examination: Her respiratory rate is 18, pulse rate of 108, temperature 97, blood pressure 136/86, O2 saturation on 4 L by nasal cannula is 91%. HEENT is unremarkable. Chest reveals decreased breath sounds. Cardiovascular system reveals an S1, S2. Abdomen is soft. There is no edema. IMPRESSION: At this time is: 1. Metabolic encephalopathy. 2. Chronic obstructive pulmonary disease with exacerbation. 3. Lung fibrosis. Continue BiPAP as needed. Would benefit from trilogy ventilator and possible LTAC placement. Continue bronchodilators, aerosolized steroids and current medications which were reviewed. Her prognosis at this time is guarded. MMODL / IJN: [id number] /
--- NOTE | 2018-03-26 13:14 | P.PN ---
Subjective Progress Note Date: 03/26/18 Patient is a pleasant 67-year-old female who is being followed by the neurology service for right-sided sensory deficit. Patient has a history of chronic back pain and lumbar disc disease with chronic right-sided pain and paresthesia. Patient recently underwent lumbar epidural which didn't seem to help according to patient. This right-sided numbness is not new for her. Patient is a poor historian. At one point patient states this right-sided numbness and tingling has been there which is why she underwent lumbar epidurals and when asked again she states this right-sided numbness is new. An MRI of the brain was done to evaluate for any new event. There was no acute intracranial abnormality. MRI of the brain did show encephalomalacia within the right frontal lobe which is stable as compared to last MRI. Patient is working with physical therapy. At the time of my evaluation, patient is resting comfortably in bed and appears to be in no acute distress. Objective - Vital Signs Vital signs: Vital Signs Temp 97 F L 03/26/18 08:00 Pulse 108 H 03/26/18 08:00 Resp 18 03/26/18 08:00 BP 136/86 03/26/18 08:00 Pulse Ox 91 L 03/26/18 08:00 Intake & Output 03/25/18 03/26/18 03/26/18 18:59 06:59 18:59 Intake Total 1030 600 Output Total 1275 Balance 1030 -675 Weight 74.4 kg Intake: Intake, IV Titration 350 Amount Sodium Chloride 0.9% 1, 350 000 ml @ 50 mls/hr IV . Q20H [facility] Rx#:[id number] Oral 680 600 Output: Urine 1275 Other: Voiding Method Bedside Commode # Bowel Movements 1 - Exam PHYSICAL EXAM: GENERAL APPEARANCE: Patient is a well-developed, female who appears to be in no acute distress. HEENT: Normocephalic, atraumatic, no facial asymmetry is seen. Neck is supple with no masses felt. CARDIOVASCULAR: Regular rate and rhythm. ABDOMEN: Nontender, nondistended. EXTREMITIES: Show no edema or clubbing. NEUROLOGICAL EXAM: Patient is awake, alert, and oriented 3. Speech and language are normal. Strength is 5/5 in left upper and lower extremity and 5-/ 5 in right upper and lower extremity. Sensory exam is decreased to light touch in right upper and lower extremity as well as right-sided facial deficit. No facial asymmetry is seen on cranial nerve testing. No pronator drift is noted. No tremors or seizure-like activity is seen. - Labs CBC & Chem 7: 03/26/18 06:19 03/26/18 06:19 Labs: Abnormal Lab Results - Last 24 Hours (Table) 03/25/18 03/25/18 03/26/18 Range/Units 17:06 21:06 05:58 RBC (3.80-5.40) m/uL Hct (34.0-46.0) % MCHC (31.0-37.0) g/dL RDW (11.5-15.5) % Neutrophils # (1.3-7.7) k/uL Lymphocytes # (1.0-4.8) k/uL Sodium (137-145) mmol/L Potassium (3.5-5.1) mmol/L BUN (7-17) mg/dL Glucose (74-99) mg/dL POC Glucose (mg/dL) 137 H 104 H 129 H (75-99) mg/dL Total Protein (6.3-8.2) g/dL Albumin (3.5-5.0) g/dL 03/26/18 03/26/18 03/26/18 Range/Units 06:19 06:19 11:49 RBC 5.70 H (3.80-5.40) m/uL Hct 47.9 H (34.0-46.0) % MCHC 29.9 L (31.0-37.0) g/dL RDW 17.2 H (11.5-15.5) % Neutrophils # 9.4 H (1.3-7.7) k/uL Lymphocytes # 0.8 L (1.0-4.8) k/uL Sodium 135 L (137-145) mmol/L Potassium 5.2 H (3.5-5.1) mmol/L BUN 27 H (7-17) mg/dL Glucose 127 H (74-99) mg/dL POC Glucose (mg/dL) 129 H (75-99) mg/dL Total Protein 5.6 L (6.3-8.2) g/dL Albumin 3.4 L (3.5-5.0) g/dL Assessment and Plan Plan: Impression: 1. Right-sided paresthesias 2. Right-sided weakness 3. Atypical chest pain 4. Chronic back pain 5. History of paroxysmal atrial fibrillation on Xarelto 6. COPD 7. History of CVA with right-sided weakness 8. CAD/history of PA/stents 9. Bipolar disorder 10. Hyperkalemia 11. Hyponatremia 12. History of seizure disorder Recommendations: It does appear patient has right-sided weakness and paresthesias including facial paresthesia on the right. Patient states this right-sided pain and numbness is one of the reason she underwent lumbar epidurals. I believe this right-sided paresthesias may be chronic. Patient has chronic back pain and had lumbar epidural procedures done which she states helped. She is now back on Xarelto following lumbar epidurals. MRI of the brain was done which showed no acute infarct. MRI of the brain showed encephalomalacia within the right frontal lobe from prior infarct in the distribution of the middle cerebral artery. 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 Lipid panel is within normal limits except for low HDL of 38. Due to patient's hypoxia, CTA of the chest was done which showed no evidence for pulmonary embolism. EEG was done and results are pending. A serum homocysteine level was done and is normal. History seizure disorder, continue patient on current dose of Trileptal as she has been seizure-free for the last year. I recommend PT OT to evaluate and treat. Patient may need short stay of inpatient rehab upon discharge. Continue neurological checks. Continue seizure precautions. Continue Xarelto. No new neurological deficits noted. I will continue to follow with you on an as-needed basis. Feel free to call with any questions or concerns. I performed an examination of the patient and discussed the management with the TALENT COORDINATOR. I have reviewed the TALENT COORDINATOR notes and agree with the findings and plan of care.
[2018-03-26 17:28] LABS: Glucose,Whole Blood 196 mg/dL (75-99)
[2018-03-26] MEDS: RIVAROXABAN 15 MG TAB PO SCH (18:05)
[2018-03-26] MEDS: ALPRAZolam 0.25 MG TAB PO PRN ×2 (18:05→22:35)
[2018-03-26] MEDS: MONTELUKAST 10 MG TAB PO SCH (21:02)
[2018-03-26] MEDS: MELATONIN 3 MG TABLET PO SCH (21:02)
[2018-03-26] MEDS: HYDROcodone/APAP 5-325MG 1 EACH TAB PO PRN (21:02)
[2018-03-26] MEDS: PARoxetine 10 MG TAB PO SCH (21:02)
[2018-03-26] MEDS: OXcarbazepine 150 MG TAB PO SCH (21:02)
[2018-03-26 21:22] LABS: Glucose,Whole Blood 107 mg/dL (75-99)
[2018-03-27 06:39] LABS: Glucose,Whole Blood 138 mg/dL (75-99)
[2018-03-27] MEDS: MIDODRINE 5 MG TAB PO SCH ×3 (06:51→17:35)
[2018-03-27] MEDS: LEVOTHYROXINE 100 MCG TAB PO SCH (06:51)
[2018-03-27] MEDS: PANTOPRAZOLE 40 MG TABLET PO SCH (06:51)
[2018-03-27] MEDS: INSULIN ASPART 100 UNIT/ML 1 ML 10 ML VIAL SQ SCH ×4 (06:51→21:16)
[2018-03-27 07:00] LABS: Anisocytosis Slight; Basophils # (A) 0.1 k/uL (0-0.2); Basophils % (A) 0 %; Eosinophils % (A) 0 %; HCT 47.9 % (34.0-46.0); HGB 14.3 gm/dL (11.4-16.0); Hypochromasia Moderate; Lymphocytes # (A) 1.1 k/uL (1.0-4.8); Lymphocytes % (A) 6 %; MCH 25.8 pg (25.0-35.0); MCHC 29.9 g/dL (31.0-37.0); MCV 86.3 fL (80.0-100.0); Mean Platelet Volume 6.8; Monocytes # (A) 0.5 k/uL (0-1.0); Monocytes % (A) 3 %; Neutrophils % (A) 91 %; Platelet Count 351 k/uL (150-450); RBC 5.55 m/uL (3.80-5.40); WBC 19.8 k/uL (3.8-10.6)
[2018-03-27 07:01] LABS: Albumin 3.6 g/dL (3.5-5.0); Calcium 9.2 mg/dL (8.4-10.2); Total Bilirubin 0.3 mg/dL (0.2-1.3); Total Protein 5.7 g/dL (6.3-8.2)
[2018-03-27] MEDS: SYMBICORT 160-4.5 MCG INHALER INHALATION SCH ×2 (08:24→20:50)
[2018-03-27] MEDS: ALBUTEROL NEBULIZED 2.5 MG/3 ML INHALATION SCH ×4 (08:24→20:50)
[2018-03-27] MEDS: TIOTROPIUM 18 MCG/PUFF INHALER INHALATION SCH (08:24)
[2018-03-27] MEDS: AMIODARONE 100 MG TAB PO SCH (09:19)
[2018-03-27] MEDS: LURASIDONE 40 MG TAB PO SCH (09:19)
[2018-03-27] MEDS: METOPROLOL TARTRATE 25 MG TAB PO SCH ×2 (09:19→20:16)
[2018-03-27] MEDS: methylPREDNISolone SOD SUCCI 40 MG/ML 1 ML VIAL IV SCH (09:20)
[2018-03-27] MEDS: FERROUS SULFATE 325 MG TAB PO SCH (09:20)
[2018-03-27] MEDS: NITROGLYCERIN OINT 1 INCH/GM PACKET TOPICAL SCH ×3 (09:20→23:19)
[2018-03-27 11:46] LABS: Glucose,Whole Blood 109 mg/dL (75-99)
[2018-03-27] MEDS: SODIUM CHLORIDE 0.9% 1,000 ML IV SCH (12:17)
[2018-03-27 17:30] LABS: Glucose,Whole Blood 133 mg/dL (75-99)
[2018-03-27] MEDS: predniSONE 20 MG TAB PO SCH (17:35)
[2018-03-27] MEDS: RIVAROXABAN 15 MG TAB PO SCH (17:35)
--- NOTE | 2018-03-27 17:55 | P.PN ---
Subjective Progress Note Date: 03/27/18 Principal diagnosis: Musculoskeletal chest pain, acute tracheobronchitis, chronic lower back pain, right-sided numbness transient in proximal, paroxysmal atrial fibrillation, hypertension, right upper lobe nodule, pulmonary fibrosis, COPD with acute exacerbation, history of prior stroke [place] and coronary artery disease with stent placement, history of bipolar disorder, status post right nephrectomy for renal cancer, history of intermittent hyperkalemia improved history of recent intermittent diarrhea also appears to have improved 03/27/2018, patient seen and evaluated examined during the rounds clinically overall not much change patient is being treated for acute COPD exacerbation as well as the pulmonary fibrosis overall doing better no obvious distress is present hemodynamic status stable tolerating bronchodilators very well cardiovascular services have signed off, neurological services are following and numbness has improved now Objective - Vital Signs Vital signs: Vital Signs Temp 97 F L 03/27/18 08:00 Pulse 87 03/27/18 12:05 Resp 17 03/27/18 12:05 BP 136/109 03/27/18 12:05 Pulse Ox 94 L 03/27/18 12:05 Intake & Output 03/26/18 03/27/18 03/27/18 18:59 06:59 18:59 Intake Total 360 360 Output Total 300 Balance 360 60 Weight 76.1 kg Intake: Oral 360 360 Output: Urine 300 Other: Voiding Method Bedside Commode # Voids 1 - Exam Head normocephalic Neck supple Lungs crackles at bases Heart irregular. A. fib on monitor heart rate 120 with activity Abdomen is soft nontender nondistended positive bowel sounds no hepatosplenomegaly Extremities no edema Neuro alert and orientated to 3 - Labs CBC & Chem 7: 03/27/18 05:51 03/27/18 05:51 Labs: Abnormal Lab Results - Last 24 Hours (Table) 03/26/18 03/27/18 03/27/18 Range/Units 21:21 05:51 05:51 WBC 19.8 H (3.8-10.6) k/uL RBC 5.55 H (3.80-5.40) m/uL Hct 47.9 H (34.0-46.0) % MCHC 29.9 L (31.0-37.0) g/dL RDW 17.0 H (11.5-15.5) % Neutrophils # 18.0 H (1.3-7.7) k/uL Sodium 134 L (137-145) mmol/L BUN 24 H (7-17) mg/dL Creatinine 1.12 H (0.52-1.04) mg/dL Glucose 143 H (74-99) mg/dL POC Glucose (mg/dL) 107 H (75-99) mg/dL Total Protein 5.7 L (6.3-8.2) g/dL 03/27/18 03/27/18 03/27/18 Range/Units 06:36 11:33 17:20 WBC (3.8-10.6) k/uL RBC (3.80-5.40) m/uL Hct (34.0-46.0) % MCHC (31.0-37.0) g/dL RDW (11.5-15.5) % Neutrophils # (1.3-7.7) k/uL Sodium (137-145) mmol/L BUN (7-17) mg/dL Creatinine (0.52-1.04) mg/dL Glucose (74-99) mg/dL POC Glucose (mg/dL) 138 H 109 H 133 H (75-99) mg/dL Total Protein (6.3-8.2) g/dL Assessment and Plan Assessment: 1. Chest pain: Likely muscle skeletal secondary to the tracheobronchitis. EKG sinus rhythm with PACs and right bundle audra block. Cardiac enzymes negative 3 sets. Patient seen by cardiology echo showing an EF of 50-55%. They've decreased aspirin to 81 mg daily. Cardiology has signed off 2. Chronic lower back pain with degenerative disc disease. Status post lumbar epidural and injection. Back pain improved. Continue [place] 3. Right-sided numbness during the chest pain episode. Now resolved. Patient has been off of Xarelto for 3 days. Computed tomography scan of the brain showing right frontal lobe encephalomalcia without change compared to old exam. no acute intracranial abnormality. Patient apparently reported again a right- sided sensation loss. Neurology consulted and an MRI of the brain was ordered 4. Right lower quadrant abdominal pain. Improved. Abdominal ultrasound and computed tomography scan the abdomen showing no acute abnormality. Amylase lipase and LFTs all within normal range. Urinalysis negative no evidence of UTI 5. History of paroxysmal atrial fibrillation on amiodarone. Continue Xarelto 6. Essential hypertension. Elevated blood pressure outpatient receiving extra labetalol. Patient usually has hypotension and is on midodrine 7. Right upper lobe pulmonary nodule and possible pulmonary fibrosis being followed outpatient with pulmonary service 8. Acute on chronic Chronic hypoxic respiratory failure home O2 dependent usually uses 3 L of oxygen. Patient currently requiring 6 L. Possibly related to her bronchitis and COPD. Patient currently on doxycycline and prednisone 9. Acute COPD exacerbation: Continue IV Solu-Medrol. patient refusing nebulizer treatments. She is now off the AIRVO and on 4L of oxygen satting at 93%. 10. History of CVA 11. history of myocardial infarction and coronary artery disease with previous cardiac stents 12. History of bipolar continue Latuda and Trileptal 13. History of Renal cancer status post right nephrectomy 14. Acute tracheobronchitis: Seen by pulmonary service started on doxycycline and IV Solu-Medrol 15. Mildly elevated LFTs. Have improved. Discontinue Lipitor. Repeat labs in a.m. 16. Constipation now resolved. Patient now having loose stools. Discontinue Colace and FiberCon. Awaiting stool for C. diff 17. Hyperkalemia: Potassium 5.6 Discontinue potassium supplement. Kayexalate 30 g initially ordered for patient. However she is having loose is stools. Also she'll receive Kayexalate 15 g. Repeat potassium level at noon patient still having some hyperkalemia potassium 5.4. She is eating potassium-rich foods. Patient has been educated to avoid these foods as well as the nursing staff. 18. Hyponatremia: Sodium 131 likely related to patient's diarrhea. Sodium has increased to 133. We will restart normal saline at 50 mL an hour Continue physical therapy GI prophylaxis Protonix and DVT prophylaxis Xarelto When patient is stable for discharge she'll be going home with home care Plan: As noted above Time with Patient: Greater than 30
--- NOTE | 2018-03-27 18:52 | PN ---
PROGRESS NOTE DATE OF SERVICE: 03/27/2018 She was seen on March2017. She is less short of breath. She does not complain of any chest pain or pain to me today. On physical examination, respiratory rate is 17, pulse rate 87, temperature 97, blood pressure 136/109, O2 saturation on nasal cannula oxygen is 94% on 4 L. HEENT: Unremarkable except for nasal cannula being in place. Chest reveals decreased breath sounds with prolonged expiration. No clear wheeze. Cardiovascular system is S1, S2. ABDOMEN: Soft. There is no edema. IMPRESSION: At this time is: 1. Severe chronic obstructive pulmonary disease with acute exacerbation. 2. Interstitial fibrosis. 3. Medical debility. Increase her activity level. Switch her to oral steroids and consider discharge planning possibly to an LTAC versus a rehab unit. Depending on how she does, we should make further changes to her care. MARY / LYNNN: [id number] /
[2018-03-27] MEDS: MONTELUKAST 10 MG TAB PO SCH (20:16)
[2018-03-27] MEDS: OXcarbazepine 150 MG TAB PO SCH (20:16)
[2018-03-27] MEDS: PARoxetine 10 MG TAB PO SCH (20:17)
[2018-03-27 21:00] LABS: Glucose,Whole Blood 134 mg/dL (75-99)
[2018-03-27] MEDS: MELATONIN 3 MG TABLET PO SCH (21:16)
[2018-03-27] MEDS: HYDROcodone/APAP 5-325MG 1 EACH TAB PO PRN (22:11)
[2018-03-28] MEDS: ALPRAZolam 0.25 MG TAB PO PRN (00:32)
[2018-03-28 06:02] LABS: Glucose,Whole Blood 136 mg/dL (75-99)
[2018-03-28] MEDS: PANTOPRAZOLE 40 MG TABLET PO SCH (06:03)
[2018-03-28] MEDS: LEVOTHYROXINE 100 MCG TAB PO SCH (06:03)
[2018-03-28] MEDS: METOPROLOL TARTRATE 25 MG TAB PO SCH ×2 (06:03→20:11)
[2018-03-28 06:28] LABS: Total Bilirubin 0.5 mg/dL (0.2-1.3)
[2018-03-28 06:39] LABS: Albumin 3.6 g/dL (3.5-5.0); Total Protein 5.9 g/dL (6.3-8.2)
[2018-03-28] MEDS: INSULIN ASPART 100 UNIT/ML 1 ML 10 ML VIAL SQ SCH ×4 (06:43→20:24)
[2018-03-28 06:44] LABS: Anisocytosis Slight; Basophils # (A) 0.1 k/uL (0-0.2); Basophils % (A) 0 %; Eosinophils % (A) 0 %; HCT 48.3 % (34.0-46.0); Hypochromasia Marked; Lymphocytes # (A) 1.2 k/uL (1.0-4.8); Lymphocytes % (A) 5 %; MCH 26.7 pg (25.0-35.0); MCV 86.2 fL (80.0-100.0); Mean Platelet Volume 6.8; Monocytes # (A) 0.6 k/uL (0-1.0); Monocytes % (A) 3 %; Neutrophils # (A) 19.3 k/uL (1.3-7.7); Neutrophils % (A) 90 %; Platelet Count 304 k/uL (150-450); RBC 5.61 m/uL (3.80-5.40); RDW 17.1 % (11.5-15.5); WBC 21.4 k/uL (3.8-10.6)
[2018-03-28] MEDS: MIDODRINE 5 MG TAB PO SCH ×3 (08:43→17:12)
[2018-03-28] MEDS: NITROGLYCERIN OINT 1 INCH/GM PACKET TOPICAL SCH ×3 (08:44→23:34)
[2018-03-28] MEDS: predniSONE 20 MG TAB PO SCH (08:44)
[2018-03-28] MEDS: AMIODARONE 100 MG TAB PO SCH (08:44)
[2018-03-28] MEDS: FERROUS SULFATE 325 MG TAB PO SCH (08:44)
[2018-03-28] MEDS: LURASIDONE 40 MG TAB PO SCH (08:44)
[2018-03-28] MEDS: SYMBICORT 160-4.5 MCG INHALER INHALATION SCH ×2 (08:49→19:37)
[2018-03-28] MEDS: TIOTROPIUM 18 MCG/PUFF INHALER INHALATION SCH (08:49)
[2018-03-28] MEDS: ALBUTEROL NEBULIZED 2.5 MG/3 ML INHALATION SCH ×4 (08:49→19:37)
[2018-03-28] MEDS: HYDROcodone/APAP 5-325MG 1 EACH TAB PO PRN ×2 (10:16→14:53)
--- NOTE | 2018-03-28 10:48 | P.PN ---
Subjective Progress Note Date: 03/28/18 History of present illness: This is a 67-year-old female patient being seen examined and evaluated today on rounds for consultation. This patient was previously going for an lumbar epidural back injection when she became short of breath and had some chest pain. She was transferred over to [facility] emergency room for evaluation and treatment. Patient was noted to be slightly hypertensive with a systolic pressure in the 180s. She did receive 3 doses of nitro and aspirin as well as labetalol that did have positive results in relieving the patient's chest pain. She also had an EKG which did show showing sinus rhythm with PACs and a) bundle-branch block. Her troponins have been negative. She did have a heart catheterization in December 2017 with a stent to the proximal right coronary artery with mild disease involving the left main and mild disease involving the left circumflex she also had a stent in the mid LAD. She did have a chest x- ray that was negative for any acute cardiopulmonary process. She does have an underlying history of pulmonary edema and pulmonary fibrosis as well as a known right upper lobe pulmonary nodule.. The patient recently stopped her Xarelto for 3 days prior to going for her back injection. She did have her lumbar injection today. She also complained of some diffuse abdominal pain which she has had chronically in the past for her IBS. She also also known to have chronic hypoxic respiratory failure and uses 3-4 L of supplemental oxygen at home. Upon examination she is resting up in bed on 3-4 L of oxygen. Does have some shortness of breath with exertion and activity. Denies any cough or congestion or sputum production. She has been using her Symbicort at home. She is afebrile no further complaints. All labs and reports have been reviewed. Interval History: 03/17/18- patient seen seen examined and evaluated today on rounds. She is resting up in bed on 6 L of supplemental oxygen via nasal cannula. She does have shortness of breath with exertion and activity. She has had a cough with some congestion and yellow sputum today. All labs and reports have been reviewed. She continues to be worked up by primary services for abdominal discomfort. 03/18/2018: Patient seen and examined. Patient states she is feeling little bit better overall. She is complaining of continued chronic back pain. Her O2 saturation is 92% on 6 L nasal cannula. We will decrease her to 5 L nasal cannula and monitor her saturations closely. The patient denies shortness of breath, fevers, chills, cough 03/19/18-03/20/18- Please see Dr TIANNA Hyman notes 03/21/18- patient is being seen examined and evaluated today on rounds. She is resting up in bedside chair on high flow airflow. She is at 35 L and FiO2 of 35 %. She feels her breathing has been okay today. 03/22/18- patient is being seen examined and evaluated today on rounds. She did have a CTA yesterday which was negative for any PE E did show cardiomegaly and severe emphysema. She did undergo a bubble study and those results are pending as well. Her Symbicort was discontinued yesterday and she was put on Pulmicort and Perforomist however the patient did have a slight reaction to one of those, went into A. fib, therefore they were discontinued. We will put her back on Symbicort and add DuoNeb scheduled. We will continue to wean down her oxygen. She continues on high flow 35 L and FiO2 of 50%. 03/28/18- patient is being seen examined and evaluated today on rounds. She continues on 4 L of supplemental oxygen. She was denied A Trilogy home vent by her insurance company. Denies any chest pain today. She continues to be short of breath with exertion and activity. Afebrile, no further complaints Objective - Vital Signs Vital signs: Vital Signs Temp 98.3 F 03/28/18 08:45 Pulse 98 03/28/18 08:45 Resp 20 03/28/18 08:45 BP 153/99 03/28/18 08:45 Pulse Ox 93 L 03/28/18 08:45 Intake & Output 03/27/18 03/28/18 03/28/18 18:59 06:59 18:59 Intake Total 1150 240 Balance 1150 240 Weight 77.9 kg Intake: Intake, IV Titration 550 Amount Sodium Chloride 0.9% 1, 550 000 ml @ 50 mls/hr IV . Q20H [facility] Rx#:[id number] Oral 600 240 Other: Voiding Method Bedside Commode # Voids 2 - Exam GENERAL EXAM: Alert, active, comfortable in no apparent distress. HEAD: Normocephalic. EYES: Normal reaction of pupils, equal size. NOSE: Clear with pink turbinates. THROAT: No erythema or exudates. NECK: No masses, no JVD. CHEST: No chest wall deformity. LUNGS: Equal air entry with no crackles, wheeze, rhonchi or dullness. Bases slightly diminished CVS: S1 and S2 normal with no audible mumurs, regular rhythm. ABDOMEN: No hepatosplenomegaly, normal bowel sounds, no guarding or rigidity. EXTREMITIES: No edema noted, pedal pulses palpable. CENTRAL NERVOUS SYSTEM: No focal deficits, tone is normal in all 4 extremities. - Labs CBC & Chem 7: 03/28/18 05:48 03/28/18 05:48 Labs: Abnormal Lab Results - Last 24 Hours (Table) 03/27/18 03/27/18 03/27/18 Range/Units 11:33 17:20 20:59 WBC (3.8-10.6) k/uL RBC (3.80-5.40) m/uL Hct (34.0-46.0) % RDW (11.5-15.5) % Neutrophils # (1.3-7.7) k/uL Sodium (137-145) mmol/L Potassium (3.5-5.1) mmol/L Carbon Dioxide (22-30) mmol/L BUN (7-17) mg/dL Glucose (74-99) mg/dL POC Glucose (mg/dL) 109 H 133 H 134 H (75-99) mg/dL AST (14-36) U/L ALT (9-52) U/L Total Protein (6.3-8.2) g/dL 03/28/18 03/28/18 03/28/18 Range/Units 05:48 05:48 06:01 WBC 21.4 H (3.8-10.6) k/uL RBC 5.61 H (3.80-5.40) m/uL Hct 48.3 H (34.0-46.0) % RDW 17.1 H (11.5-15.5) % Neutrophils # 19.3 H (1.3-7.7) k/uL Sodium 131 L (137-145) mmol/L Potassium 6.0 H (3.5-5.1) mmol/L Carbon Dioxide 19 L (22-30) mmol/L BUN 27 H (7-17) mg/dL Glucose 119 H (74-99) mg/dL POC Glucose (mg/dL) 136 H (75-99) mg/dL AST 47 H (14-36) U/L ALT 58 H (9-52) U/L Total Protein 5.9 L (6.3-8.2) g/dL Assessment and Plan Assessment: Assessment Tracheobronchitis Acute on Chronic hypoxic respiratory failure requiring supplemental oxygen, patient did require up to 5 L in the ER Known right upper lobe pulmonary nodule with pulmonary fibrosis Chest pain COPD not acutely exacerbated Chronic lower back pain with degenerative disc disease Generalized abdominal pain History of A. fib History of hypertension Status post lumbar epidural injection Plan Medications have been reviewed and will be continued as ordered. Oral steroids, taper Continue with pulmonary hygiene, coughing and deep breathing exercises, and supportive care. Supplemental oxygen to maintain oxygen saturations of 92% or better. Initiate and encourage incentive spirometer She should continue with her Symbicort, and Spiriva Continue nebulizer treatments as needed. Cardiology on consult Echocardiogram reviewed EF 50-55% with RVSP of 49.5 GI and DVT prophylaxis. Increase activity as tolerated PT and OT We will continue to monitor labs/results and adjust treatment as necessary. Discharge planning to possible LTAC versus rehab I performed an examination of the patient and discussed their management with the nurse practitioner. I have reviewed the nurse practitioner's note and agree with the documented findings and plan of care.
[2018-03-28 11:37] LABS: Glucose,Whole Blood 116 mg/dL (75-99)
[2018-03-28] MEDS: SODIUM CHLORIDE 0.9% 1,000 ML IV SCH (12:43)
--- NOTE | 2018-03-28 12:44 | EEG ---
ELECTROENCEPHALOGRAM REPORT DATE OF SERVICE: 03/26/2018. REASON FOR TESTING: Stroke. DESCRIPTION OF THE PROCEDURE: This EEG was performed using a 21 channel digital electroencephalograph, following international 10-20 system. DESCRIPTION OF THE RECORDING: From the beginning of the tracing, and with patient's eyes closed, the background rhythm was mostly consisting of 8-9 Hz alpha frequency in the posterior occipital leads. No obvious asymmetry is seen. Photic stimulation was performed with a minimal driving response seen. No pathological waves were elicited. Occasional movement artifacts are seen. Hyperventilation was not performed. The patient does reach stage II of sleep during the tracing and occasional sleep spindles are seen. No epileptiform discharges were seen. Her EKG lead showed an irregularly irregular rhythm with a normal rate. INTERPRETATION: This asleep and awake EEG can be considered within normal limits except her EKG lead showed an irregularly irregular rhythm with a normal rate. No epileptiform discharges were seen. The absence of epileptiform discharges does not rule out the diagnosis of epilepsy; therefore clinical correlation is recommended. MMLILLIAN / LYNNN: [id number] /
[2018-03-28 16:59] LABS: Glucose,Whole Blood 129 mg/dL (75-99)
[2018-03-28] MEDS: RIVAROXABAN 15 MG TAB PO SCH (17:12)
--- NOTE | 2018-03-28 17:48 | P.PN ---
Subjective Progress Note Date: 03/28/18 Principal diagnosis: Musculoskeletal chest pain, acute tracheobronchitis, chronic lower back pain, right-sided numbness transient in proximal, paroxysmal atrial fibrillation, hypertension, right upper lobe nodule, pulmonary fibrosis, COPD with acute exacerbation, history of prior stroke [place] and coronary artery disease with stent placement, history of bipolar disorder, status post right nephrectomy for renal cancer, history of intermittent hyperkalemia improved history of recent intermittent diarrhea also appears to have improved 03/27/2018, patient seen and evaluated examined during the rounds clinically overall not much change patient is being treated for acute COPD exacerbation as well as the pulmonary fibrosis overall doing better no obvious distress is present hemodynamic status stable tolerating bronchodilators very well cardiovascular services have signed off, neurological services are following and numbness has improved now 03/28/2018, patient overall doing well on 4 L oxygen noted that the home ventilator has been disapproved by the insurance company due to weak indication , patient underwent EEG MG as well as the MRI of the brain CT and reviewed detailed report Objective - Vital Signs Vital signs: Vital Signs Temp 98.3 F 03/28/18 15:00 Pulse 89 03/28/18 15:00 Resp 20 03/28/18 15:00 BP 120/76 03/28/18 15:00 Pulse Ox 94 L 03/28/18 15:00 Intake & Output 03/27/18 03/28/18 03/28/18 18:59 06:59 18:59 Intake Total 1150 758 Balance 1150 758 Weight 77.9 kg Intake: Intake, IV Titration 550 400 Amount Sodium Chloride 0.9% 1, 550 400 000 ml @ 50 mls/hr IV . Q20H [facility] Rx#:[id number] Oral 600 358 Other: Voiding Method Bedside Commode # Voids 2 - Exam Head normocephalic Neck supple Lungs crackles at bases Heart irregular. A. fib on monitor heart rate 120 with activity Abdomen is soft nontender nondistended positive bowel sounds no hepatosplenomegaly Extremities no edema Neuro alert and orientated to 3 - Labs CBC & Chem 7: 03/28/18 05:48 03/28/18 05:48 Labs: Abnormal Lab Results - Last 24 Hours (Table) 03/27/18 03/28/18 03/28/18 Range/Units 20:59 05:48 05:48 WBC 21.4 H (3.8-10.6) k/uL RBC 5.61 H (3.80-5.40) m/uL Hct 48.3 H (34.0-46.0) % RDW 17.1 H (11.5-15.5) % Neutrophils # 19.3 H (1.3-7.7) k/uL Sodium 131 L (137-145) mmol/L Potassium 6.0 H (3.5-5.1) mmol/L Carbon Dioxide 19 L (22-30) mmol/L BUN 27 H (7-17) mg/dL Glucose 119 H (74-99) mg/dL POC Glucose (mg/dL) 134 H (75-99) mg/dL AST 47 H (14-36) U/L ALT 58 H (9-52) U/L Total Protein 5.9 L (6.3-8.2) g/dL 03/28/18 03/28/18 03/28/18 Range/Units 06:01 11:35 16:48 WBC (3.8-10.6) k/uL RBC (3.80-5.40) m/uL Hct (34.0-46.0) % RDW (11.5-15.5) % Neutrophils # (1.3-7.7) k/uL Sodium (137-145) mmol/L Potassium (3.5-5.1) mmol/L Carbon Dioxide (22-30) mmol/L BUN (7-17) mg/dL Glucose (74-99) mg/dL POC Glucose (mg/dL) 136 H 116 H 129 H (75-99) mg/dL AST (14-36) U/L ALT (9-52) U/L Total Protein (6.3-8.2) g/dL Assessment and Plan Assessment: 1. Chest pain: Likely muscle skeletal secondary to the tracheobronchitis. EKG sinus rhythm with PACs and right bundle audra block. Cardiac enzymes negative 3 sets. Patient seen by cardiology echo showing an EF of 50-55%. They've decreased aspirin to 81 mg daily. Cardiology has signed off 2. Chronic lower back pain with degenerative disc disease. Status post lumbar epidural and injection. Back pain improved. Continue [place] 3. Right-sided numbness during the chest pain episode. Now resolved. Patient has been off of Xarelto for 3 days. Computed tomography scan of the brain showing right frontal lobe encephalomalcia without change compared to old exam. no acute intracranial abnormality. Patient apparently reported again a right- sided sensation loss. Neurology consulted and an MRI of the brain was ordered 4. Right lower quadrant abdominal pain. Improved. Abdominal ultrasound and computed tomography scan the abdomen showing no acute abnormality. Amylase lipase and LFTs all within normal range. Urinalysis negative no evidence of UTI 5. History of paroxysmal atrial fibrillation on amiodarone. Continue Xarelto 6. Essential hypertension. Elevated blood pressure outpatient receiving extra labetalol. Patient usually has hypotension and is on midodrine 7. Right upper lobe pulmonary nodule and possible pulmonary fibrosis being followed outpatient with pulmonary service 8. Acute on chronic Chronic hypoxic respiratory failure home O2 dependent usually uses 3 L of oxygen. Patient currently requiring 6 L. Possibly related to her bronchitis and COPD. Patient currently on doxycycline and prednisone 9. Acute COPD exacerbation: Continue IV Solu-Medrol. patient refusing nebulizer treatments. She is now off the AIRVO and on 4L of oxygen satting at 93%. 10. History of CVA 11. history of myocardial infarction and coronary artery disease with previous cardiac stents 12. History of bipolar continue Latuda and Trileptal 13. History of Renal cancer status post right nephrectomy 14. Acute tracheobronchitis: Seen by pulmonary service started on doxycycline and IV Solu-Medrol 15. Mildly elevated LFTs. Have improved. Discontinue Lipitor. Repeat labs in a.m. 16. Constipation now resolved. Patient now having loose stools. Discontinue Colace and FiberCon. Awaiting stool for C. diff 17. Hyperkalemia: Potassium 5.6 Discontinue potassium supplement. Kayexalate 30 g initially ordered for patient. However she is having loose is stools. Also she'll receive Kayexalate 15 g. Repeat potassium level at noon patient still having some hyperkalemia potassium 5.4. She is eating potassium-rich foods. Patient has been educated to avoid these foods as well as the nursing staff. 18. Hyponatremia: Sodium 131 likely related to patient's diarrhea. Sodium has increased to 133. We will restart normal saline at 50 mL an hour Continue physical therapy GI prophylaxis Protonix and DVT prophylaxis Xarelto When patient is stable for discharge she'll be going home with home care Plan: As noted above Time with Patient: Greater than 30
[2018-03-28] MEDS: MONTELUKAST 10 MG TAB PO SCH (20:11)
[2018-03-28] MEDS: OXcarbazepine 150 MG TAB PO SCH (20:11)
[2018-03-28] MEDS: PARoxetine 10 MG TAB PO SCH (20:11)
[2018-03-28 20:18] LABS: Glucose,Whole Blood 118 mg/dL (75-99)
[2018-03-28] MEDS: MELATONIN 3 MG TABLET PO SCH (21:52)
[2018-03-29 06:16] LABS: Glucose,Whole Blood 99 mg/dL (75-99)
[2018-03-29] MEDS: INSULIN ASPART 100 UNIT/ML 1 ML 10 ML VIAL SQ SCH ×4 (06:19→21:19)
[2018-03-29] MEDS: PANTOPRAZOLE 40 MG TABLET PO SCH (06:25)
[2018-03-29] MEDS: LEVOTHYROXINE 100 MCG TAB PO SCH (06:25)
[2018-03-29] MEDS: MIDODRINE 5 MG TAB PO SCH ×3 (06:25→18:32)
[2018-03-29 06:46] LABS: Anisocytosis Slight; Basophils # (A) 0.1 k/uL (0-0.2); Basophils % (A) 0 %; Eosinophils % (A) 0 %; HCT 45.7 % (34.0-46.0); HGB 14.1 gm/dL (11.4-16.0); Hypochromasia Slight; Lymphocytes # (A) 1.6 k/uL (1.0-4.8); Lymphocytes % (A) 9 %; MCH 25.9 pg (25.0-35.0); MCHC 30.8 g/dL (31.0-37.0); Mean Platelet Volume 6.9; Monocytes # (A) 0.9 k/uL (0-1.0); Monocytes % (A) 5 %; Neutrophils # (A) 14.5 k/uL (1.3-7.7); Neutrophils % (A) 85 %; Platelet Count 305 k/uL (150-450); RBC 5.44 m/uL (3.80-5.40); RDW 17.2 % (11.5-15.5); WBC 17.1 k/uL (3.8-10.6)
[2018-03-29 07:11] LABS: Albumin 3.2 g/dL (3.5-5.0); Calcium 8.9 mg/dL (8.4-10.2); Potassium 5.3 mmol/L (3.5-5.1); Total Bilirubin 0.4 mg/dL (0.2-1.3); Total Protein 5.2 g/dL (6.3-8.2)
[2018-03-29] MEDS: LURASIDONE 40 MG TAB PO SCH (07:55)
[2018-03-29] MEDS: NITROGLYCERIN OINT 1 INCH/GM PACKET TOPICAL SCH ×2 (07:55→18:32)
[2018-03-29] MEDS: AMIODARONE 100 MG TAB PO SCH (07:55)
[2018-03-29] MEDS: FERROUS SULFATE 325 MG TAB PO SCH (07:55)
[2018-03-29] MEDS: METOPROLOL TARTRATE 25 MG TAB PO SCH ×2 (07:56→21:19)
[2018-03-29] MEDS: predniSONE 20 MG TAB PO SCH (07:56)
[2018-03-29] MEDS: TIOTROPIUM 18 MCG/PUFF INHALER INHALATION SCH (08:36)
[2018-03-29] MEDS: SYMBICORT 160-4.5 MCG INHALER INHALATION SCH ×2 (08:36→19:55)
[2018-03-29] MEDS: ALBUTEROL NEBULIZED 2.5 MG/3 ML INHALATION SCH ×4 (08:36→19:51)
--- NOTE | 2018-03-29 10:42 | P.PN ---
Subjective Progress Note Date: 03/29/18 History of present illness: This is a 67-year-old female patient being seen examined and evaluated today on rounds for consultation. This patient was previously going for an lumbar epidural back injection when she became short of breath and had some chest pain. She was transferred over to [facility] emergency room for evaluation and treatment. Patient was noted to be slightly hypertensive with a systolic pressure in the 180s. She did receive 3 doses of nitro and aspirin as well as labetalol that did have positive results in relieving the patient's chest pain. She also had an EKG which did show showing sinus rhythm with PACs and a) bundle-branch block. Her troponins have been negative. She did have a heart catheterization in December 2017 with a stent to the proximal right coronary artery with mild disease involving the left main and mild disease involving the left circumflex she also had a stent in the mid LAD. She did have a chest x- ray that was negative for any acute cardiopulmonary process. She does have an underlying history of pulmonary edema and pulmonary fibrosis as well as a known right upper lobe pulmonary nodule.. The patient recently stopped her Xarelto for 3 days prior to going for her back injection. She did have her lumbar injection today. She also complained of some diffuse abdominal pain which she has had chronically in the past for her IBS. She also also known to have chronic hypoxic respiratory failure and uses 3-4 L of supplemental oxygen at home. Upon examination she is resting up in bed on 3-4 L of oxygen. Does have some shortness of breath with exertion and activity. Denies any cough or congestion or sputum production. She has been using her Symbicort at home. She is afebrile no further complaints. All labs and reports have been reviewed. Interval History: 03/17/18- patient seen seen examined and evaluated today on rounds. She is resting up in bed on 6 L of supplemental oxygen via nasal cannula. She does have shortness of breath with exertion and activity. She has had a cough with some congestion and yellow sputum today. All labs and reports have been reviewed. She continues to be worked up by primary services for abdominal discomfort. 03/18/2018: Patient seen and examined. Patient states she is feeling little bit better overall. She is complaining of continued chronic back pain. Her O2 saturation is 92% on 6 L nasal cannula. We will decrease her to 5 L nasal cannula and monitor her saturations closely. The patient denies shortness of breath, fevers, chills, cough 03/19/18-03/20/18- Please see Dr TIANNA Hyman notes 03/21/18- patient is being seen examined and evaluated today on rounds. She is resting up in bedside chair on high flow airflow. She is at 35 L and FiO2 of 35 %. She feels her breathing has been okay today. 03/22/18- patient is being seen examined and evaluated today on rounds. She did have a CTA yesterday which was negative for any PE, did show cardiomegaly and severe emphysema. She did undergo a bubble study and those results are pending as well. Her Symbicort was discontinued yesterday and she was put on Pulmicort and Perforomist however the patient did have a slight reaction to one of those, went into A. fib, therefore they were discontinued. We will put her back on Symbicort and add DuoNeb scheduled. We will continue to wean down her oxygen. She continues on high flow 35 L and FiO2 of 50%. 03/28/18- patient is being seen examined and evaluated today on rounds. She continues on 4 L of supplemental oxygen. She was denied A Trilogy home vent by her insurance company. Denies any chest pain today. She continues to be short of breath with exertion and activity. Afebrile, no further complaints 03/29/18- patient is being seen examined and evaluated today on rounds. She continues on 4 L of supplemental oxygen via nasal cannula which is her baseline. She continues to refuse nebulized breathing treatments, she will only comply with her Symbicort inhaler, and Spiriva. Neurology has seen the patient did review a MRI of the brain as well as an EEG they have since signed off and will follow the patient outpatient or on an as-needed basis only, cardiology has also seen the patient and have signed off as well will follow patient. Her breathing is at her baseline. Discharge planning underway, social work is working with the family in regards to possible rehab facility however daughter is reluctant, we recommend the patient does go to rehab. Objective - Vital Signs Vital signs: Vital Signs Temp 96.9 F L 03/29/18 04:00 Pulse 88 03/29/18 08:30 Resp 18 03/29/18 08:30 BP 130/70 08/07/18 08:30 Pulse Ox 94 L 03/29/18 08:30 Intake & Output 03/28/18 03/29/18 03/29/18 18:59 06:59 18:59 Intake Total 876 1050 Balance 876 1050 Weight 77.2 kg Intake: Intake, IV Titration 400 550 Amount Sodium Chloride 0.9% 1, 400 550 000 ml @ 50 mls/hr IV . Q20H [facility] Rx#:[id number] Oral 476 300 Blood Product 200 Other: Voiding Method Bedside Commode # Voids 2 # Bowel Movements 1 - Exam GENERAL EXAM: Alert, active, comfortable in no apparent distress. HEAD: Normocephalic. EYES: Normal reaction of pupils, equal size. NOSE: Clear with pink turbinates. THROAT: No erythema or exudates. NECK: No masses, no JVD. CHEST: No chest wall deformity. LUNGS: Equal air entry with no crackles, wheeze, rhonchi or dullness. Bases slightly diminished CVS: S1 and S2 normal with no audible mumurs, regular rhythm. ABDOMEN: No hepatosplenomegaly, normal bowel sounds, no guarding or rigidity. EXTREMITIES: No edema noted, pedal pulses palpable. CENTRAL NERVOUS SYSTEM: No focal deficits, tone is normal in all 4 extremities. - Labs CBC & Chem 7: 03/29/18 06:07 03/29/18 06:07 Labs: Abnormal Lab Results - Last 24 Hours (Table) 03/28/18 03/28/18 03/28/18 Range/Units 11:35 16:48 20:16 WBC (3.8-10.6) k/uL RBC (3.80-5.40) m/uL MCHC (31.0-37.0) g/dL RDW (11.5-15.5) % Neutrophils # (1.3-7.7) k/uL Sodium (137-145) mmol/L Potassium (3.5-5.1) mmol/L Carbon Dioxide (22-30) mmol/L BUN (7-17) mg/dL POC Glucose (mg/dL) 116 H 129 H 118 H (75-99) mg/dL AST (14-36) U/L ALT (9-52) U/L Total Protein (6.3-8.2) g/dL Albumin (3.5-5.0) g/dL 03/29/18 03/29/18 Range/Units 06:07 06:07 WBC 17.1 H (3.8-10.6) k/uL RBC 5.44 H (3.80-5.40) m/uL MCHC 30.8 L (31.0-37.0) g/dL RDW 17.2 H (11.5-15.5) % Neutrophils # 14.5 H (1.3-7.7) k/uL Sodium 134 L (137-145) mmol/L Potassium 5.3 H (3.5-5.1) mmol/L Carbon Dioxide 20 L (22-30) mmol/L BUN 28 H (7-17) mg/dL POC Glucose (mg/dL) (75-99) mg/dL AST 37 H (14-36) U/L ALT 68 H (9-52) U/L Total Protein 5.2 L (6.3-8.2) g/dL Albumin 3.2 L (3.5-5.0) g/dL Assessment and Plan Assessment: Assessment Tracheobronchitis Acute on Chronic hypoxic respiratory failure requiring supplemental oxygen, patient did require up to 5 L in the ER Known right upper lobe pulmonary nodule with pulmonary fibrosis Chest pain COPD not acutely exacerbated Chronic lower back pain with degenerative disc disease Generalized abdominal pain History of A. fib History of hypertension Status post lumbar epidural injection Plan Patient is cleared for discharge from pulmonary standpoint We recommend rehab facility upon discharge Medications have been reviewed and will be continued as ordered. Oral steroids, taper Continue with pulmonary hygiene, coughing and deep breathing exercises, and supportive care. Supplemental oxygen to maintain oxygen saturations of 92% or better. Initiate and encourage incentive spirometer She should continue with her Symbicort, and Spiriva Continue nebulizer treatments as needed. however she continues to refuse them Cardiology and neurology have signed off Echocardiogram reviewed EF 50-55% with RVSP of 49.5 GI and DVT prophylaxis. Increase activity as tolerated PT and OT We will continue to monitor labs/results and adjust treatment as necessary. Discharge planning I performed an examination of the patient and discussed their management with the nurse practitioner. I have reviewed the nurse practitioner's note and agree with the documented findings and plan of care.
[2018-03-29 12:01] LABS: Glucose,Whole Blood 123 mg/dL (75-99)
[2018-03-29 12:03] VITALS: BMI 29.2
[2018-03-29] MEDS: SODIUM CHLORIDE 0.9% 1,000 ML IV SCH (12:29)
--- NOTE | 2018-03-29 12:40 | P.PN ---
Subjective Progress Note Date: 03/29/18 his is a 67-year-old female, patient of [facility]. Patient seen and evaluated in the ER. Patient has had previous history of myocardial infarction, coronary artery disease with 4 cardiac stents, paroxysmal atrial fibrillation, hypertension hyperlipidemia and former smoker. She also has a history of COPD hypothyroidism CVA vascular dementia, trigeminal neuralgia, obstructive sleep apnea, bowel syndrome, peripheral arterial disease with stents in the lower extremities and bipolar. Patient has a history of degenerative disc disease in the spine and was scheduled to have a epidural completed with pain management in the outpatient setting. Daughter was present with patient. Patient was in the room and getting undressed and ready for the procedure she reports feeling very anxious and becoming short of breath and having chest pain across the chest. Saw blood pressure was elevated at 180. At the pain management office she received 3 nitro and aspirin and a dose of labetalol. This helped relieve patient's chest pain. She was then brought into the emergency room for further evaluation in regards to her chest pain. EKG showing sinus rhythm with PACs and right bundle audra block. First troponin was negative. Patient's last heart catheterization was in December 2017 which showed patent stent in the proximal right coronary artery, mild disease involving the ostial left main, mild disease involving the left circumflex and patent stent in the mid LAD. At that time cardiology recommended maximize medical treatment. Chest x-ray shows no acute cardiopulmonary disease. Does reveal known underlying pulmonary edema on pulmonary fibrosis and a known right upper lobe pulmonary nodule. Patient's daughter reports that her mother is unable to participate in some of the day programs that she used to due to her pain. She will prefer if patient could receive the epidural injection for her back pain before restarting the Xarelto. Patient is also reporting during this chest pain episode that she had right-sided numbness which she's had on previous strokes. She has been off of her Xarelto for 3 days for the spinal epidural procedure. Patient admits to some nausea. Denies any vomiting bowel movement changes or urinary symptoms. Denies any cough fever or chills or sweats. Denies any facial droop or slurred speech. She also reports having some right lower abdominal pain. Daughter reports this is consistent with patient's history of IBS. Patient also has a history of chronic hypoxic respiratory failure and has been on 3 L oxygen at home. Cardiology and pain service has been consulted. Patient daughter reports that her mother had been on Ativan and Traver previously after her stay at [facility] in December. However, her PCP will not refill his medications and wanted her mother to stop taking them. She has only been using Tylenol for pain control. On 03/16/2018 patient is currently resting. Planning for epidural injection this afternoon. Ultrasound of abdomen completed showing no acute abdominal process. Per cardiology 2-D echo has been ordered and aspirin has been decreased to [address] of abdomen and pelvis has been ordered due to recent weight loss. Amalyse and lipase levels have been ordered. Pulmonary services have been consulted. 03/17/2018 patient is status post lumbar epidural injection. She is reporting improvement in her back pain and chest pain. Xarelto will be resumed today. She was also started on doxycycline and prednisone per pulmonary service for bronchitis. Patient reports a good appetite. Computed tomography scan of the abdomen shows no acute changes. Abdominal ultrasound was negative. Patient was hypotensive this morning she is on Midodrine and repeat blood pressure show improvement 109/62. Patient denies any nausea or vomiting. Denies any bowel movement changes or urinary symptoms. She reports that she starting to feel better. 03/18/2018 patient reports improvement in her back pain. She is still having some chest pains that are reproducible with palpation. Xarelto was restarted yesterday. Patient worked with physical therapy this morning and became very short of breath. Oxygen had been increased to 10 L. She was able to recover and then option came back down to 6 L at 96%. She has been on 3 L of oxygen at home. She is complaining of constipation bowel movements been very small. She had a slight increase in her liver enzymes AST 74 and ALT 84 Lipitor discontinued. Patient has been cleared by cardiology and pulmonary service for discharge on 03/19/2018 patient is alert and oriented in no distress, she reports improvement in her back pain. Patient worked with physical therapy this morning and became very short of breath. Oxygen had been increased to 10 L. yesterday She was able to recover and then option came back down to 6 L at 96%. Now she is on BiPAP She has been on 3 L of oxygen at home. She is complaining of constipation otherwise she denies any complaints. On 03/20/2018 patient is alert and oriented in no apparent distress she was seen and examined on 6 floor she was refusing BiPAP yesterday and now she is maintained on high flow oxygen she denies any chest pain or shortness of breath she denies any palpitation or cough there is no nausea or vomiting no abdominal pain no diarrhea and no urinary symptoms. 03/21/2018 patient still requiring high flow oxygen via AIRVO at 35L. patient reports shortness of breath when she was getting cleaned up earlier this morning. She denies any chest pains. Denies any nausea or vomiting. Denies bowel movement changes or urinary symptoms. She was started on Solu-Medrol over the weekend. 03/22/2018 yesterday patient was placed on Pulmicort and Perforomist. She had a slight reaction became flushed some shortness of breath and went into atrial fibrillation. Patient does have a known history of atrial fibrillation. Pulmicort and Perforomist have been discontinued. Patient has been seen by pulmonary service and they have ordered DuoNeb updrafts and Symbicort was restarted. CTA was negative for PE did show cardiomegaly and severe emphysema. Patient had echo with bubble study done results are pending. She is still on the earlobe oh FiO2 of 50% with flow rate of 35. On 03/23/2018 patient currently resting comfortably bed. Patient remains on Airvo at 40%. Patient remains on IV steroids. Patient denies chest pain or shortness of breath. 03/24/2018 patient having multiple stools through the night. Patient reports his stools are more mushy than liquidy. Stool for C. diff will be ordered. Potassium remains at 5.6. She did receive her potassium supplement yesterday. Even with elevated potassium. Potassium supplement discontinued. Kayexalate 30 g ordered but patient is having diarrhea nursing staff gave 15 g. We'll repeat a potassium level at 12:00. Sodium level dropped to 131. Patient denies any nausea or vomiting. Denies any chest pain. Reports in the chest pain and back pain. Denies any burning with urination. Still on the AIRVO at 40% 03/25/2018 patient is reporting that she still having a lot of stools. Stool has been ordered for C. diff and still has not been collected. Discussed with nursing staff to please collect the stool sample. Also patient's potassium is at 5.4. She is still eating potassium-rich foods. Again instructed patient and nursing staff the patient has to avoid potassium food. Patient is off of the AIRVO and on on 4 L of oxygen satting at 93%. Does report some improvement in her shortness of breath. Apparently she again was having some right sided weakness. Neurology has ordered an MRI of the brain. Discussed case with child welfare caseworker. Paperwork has been submitted for the noninvasive ventilator. 03/27/2018, patient seen and evaluated examined during the rounds clinically overall not much change patient is being treated for acute COPD exacerbation as well as the pulmonary fibrosis overall doing better no obvious distress is present hemodynamic status stable tolerating bronchodilators very well cardiovascular services have signed off, neurological services are following and numbness has improved now 03/28/2018, patient overall doing well on 4 L oxygen noted that the home ventilator has been disapproved by the insurance company due to weak indication , patient underwent EEG MG as well as the MRI of the brain CT and reviewed detailed report 03/29/2018 patient currently resting in bed on 4 L of oxygen. Patient denies chest pain or shortness breath. patient does complain of some right-sided weakness but according to neurology may be chronic. Discussed with case management, possible need rehab. Objective - Vital Signs Vital signs: Vital Signs Temp 96.9 F L 03/29/18 04:00 Pulse 88 03/29/18 08:30 Resp 18 03/29/18 08:30 BP 130/70 03/29/18 08:30 Pulse Ox 94 L 03/29/18 08:30 Intake & Output 03/28/18 03/29/18 03/29/18 18:59 06:59 18:59 Intake Total 876 1050 Balance 876 1050 Weight 77.2 kg 77.2 kg Intake: Intake, IV Titration 400 550 Amount Sodium Chloride 0.9% 1, 400 550 000 ml @ 50 mls/hr IV . Q20H [facility] Rx#:[id number] Oral 476 300 Blood Product 200 Other: Voiding Method Bedside Commode # Voids 2 # Bowel Movements 1 - Exam Head normocephalic Neck supple Lungs crackles at bases Heart irregular. A. fib on monitor heart rate 86 Abdomen is soft nontender nondistended positive bowel sounds no hepatosplenomegaly Extremities no edema Neuro alert and orientated to 3 - Labs CBC & Chem 7: 03/29/18 06:07 08/07/18 06:07 Labs: Abnormal Lab Results - Last 24 Hours (Table) 03/28/18 03/28/18 03/29/18 Range/Units 16:48 20:16 06:07 WBC 17.1 H (3.8-10.6) k/uL RBC 5.44 H (3.80-5.40) m/uL MCHC 30.8 L (31.0-37.0) g/dL RDW 17.2 H (11.5-15.5) % Neutrophils # 14.5 H (1.3-7.7) k/uL Sodium (137-145) mmol/L Potassium (3.5-5.1) mmol/L Carbon Dioxide (22-30) mmol/L BUN (7-17) mg/dL POC Glucose (mg/dL) 129 H 118 H (75-99) mg/dL AST (14-36) U/L ALT (9-52) U/L Total Protein (6.3-8.2) g/dL Albumin (3.5-5.0) g/dL 03/29/18 03/29/18 Range/Units 06:07 11:43 WBC (3.8-10.6) k/uL RBC (3.80-5.40) m/uL MCHC (31.0-37.0) g/dL RDW (11.5-15.5) % Neutrophils # (1.3-7.7) k/uL Sodium 134 L (137-145) mmol/L Potassium 5.3 H (3.5-5.1) mmol/L Carbon Dioxide 20 L (22-30) mmol/L BUN 28 H (7-17) mg/dL POC Glucose (mg/dL) 123 H (75-99) mg/dL AST 37 H (14-36) U/L ALT 68 H (9-52) U/L Total Protein 5.2 L (6.3-8.2) g/dL Albumin 3.2 L (3.5-5.0) g/dL Assessment and Plan Assessment: 1. Chest pain: Likely muscle skeletal secondary to the tracheobronchitis. EKG sinus rhythm with PACs and right bundle audra block. Cardiac enzymes negative 3 sets. Patient seen by cardiology echo showing an EF of 50-55%. They've decreased aspirin to 81 mg daily. Cardiology has signed off 2. Chronic lower back pain with degenerative disc disease. Status post lumbar epidural and injection. Back pain improved. Continue Traver 3. Right-sided numbness during the chest pain episode. Now resolved. Patient has been off of Xarelto for 3 days. Computed tomography scan of the brain showing right frontal lobe encephalomalcia without change compared to old exam. no acute intracranial abnormality. Patient apparently reported again a right- sided sensation loss. Neurology consulted and an MRI of the brain was ordered. Per neurology MRI of the brain showed encephalomalacia within the right frontal lobe from prior infarct in the distribution of the middle cerebral artery. 4. Right lower quadrant abdominal pain. Improved. Abdominal ultrasound and computed tomography scan the abdomen showing no acute abnormality. Amylase lipase and LFTs all within normal range. Urinalysis negative no evidence of UTI 5. History of paroxysmal atrial fibrillation on amiodarone. Continue Xarelto 6. Essential hypertension. Elevated blood pressure outpatient receiving extra labetalol. Patient usually has hypotension and is on midodrine 7. Right upper lobe pulmonary nodule and possible pulmonary fibrosis being followed outpatient with pulmonary service 8. Acute on chronic Chronic hypoxic respiratory failure home O2 dependent usually uses 3 L of oxygen. Patient currently requiring 6 L. Possibly related to her bronchitis and COPD. Patient currently on doxycycline and prednisone 9. Acute COPD exacerbation: Continue IV Solu-Medrol. patient refusing nebulizer treatments. She is now off the AIRVO and on 4L of oxygen satting at 93%. Patient currently on 4 L nasal cannula and oral prednisone 10. History of CVA 11. history of myocardial infarction and coronary artery disease with previous cardiac stents 12. History of bipolar continue Latuda and Trileptal 13. History of Renal cancer status post right nephrectomy 14. Acute tracheobronchitis: Seen by pulmonary service started on doxycycline and IV Solu-Medrol. Patient remains on oral prednisone 15. Mildly elevated LFTs. Have improved. Discontinue Lipitor. Repeat labs in a.m. 16. Constipation now resolved. Patient now having loose stools. Discontinue Colace and FiberCon. Awaiting stool for C. diff 17. Hyperkalemia: Potassium 5.6 Discontinue potassium supplement. Kayexalate 30 g initially ordered for patient. However she is having loose is stools. Also she'll receive Kayexalate 15 g. Repeat potassium level at noon patient still having some hyperkalemia potassium 5.4. She is eating potassium-rich foods. Patient has been educated to avoid these foods as well as the nursing staff. Potassium currently 5.3 we'll continue to monitor closely. 18. Hyponatremia: Sodium 131 likely related to patient's diarrhea. Sodium has increased to 133. We will restart normal saline at 50 mL an hour. Sodium currently 134 Continue physical therapy GI prophylaxis Protonix and DVT prophylaxis Xarelto When patient is stable for discharge she'll be going home with home care I performed an examination of the patient and discussed their management with the Nurse Practitioner. I have reviewed the Nurse Practitioner's notes and agree with the documented findings and plan of care
[2018-03-29] MEDS: HYDROcodone/APAP 5-325MG 1 EACH TAB PO PRN ×2 (14:19→21:18)
[2018-03-29 16:53] LABS: Glucose,Whole Blood 230 mg/dL (75-99)
[2018-03-29] MEDS: RIVAROXABAN 15 MG TAB PO SCH (18:33)
[2018-03-29 20:37] LABS: Glucose,Whole Blood 93 mg/dL (75-99)
[2018-03-29] MEDS: OXcarbazepine 150 MG TAB PO SCH (21:19)
[2018-03-29] MEDS: PARoxetine 10 MG TAB PO SCH (21:19)
[2018-03-29] MEDS: MELATONIN 3 MG TABLET PO SCH (21:19)
[2018-03-29] MEDS: MONTELUKAST 10 MG TAB PO SCH (21:20)
[2018-03-30] MEDS: ALPRAZolam 0.25 MG TAB PO PRN ×4 (00:05→22:11)
[2018-03-30] MEDS: NITROGLYCERIN OINT 1 INCH/GM PACKET TOPICAL SCH ×3 (01:29→16:59)
[2018-03-30] MEDS: HYDROcodone/APAP 5-325MG 1 EACH TAB PO PRN ×3 (01:31→22:11)
[2018-03-30] MEDS: SODIUM CHLORIDE 0.9% 1,000 ML IV SCH (04:37)
[2018-03-30] MEDS: LEVOTHYROXINE 100 MCG TAB PO SCH (06:37)
[2018-03-30] MEDS: MIDODRINE 5 MG TAB PO SCH ×3 (06:41→16:58)
[2018-03-30] MEDS: PANTOPRAZOLE 40 MG TABLET PO SCH (06:42)
[2018-03-30 06:46] LABS: Glucose,Whole Blood 87 mg/dL (75-99)
[2018-03-30] MEDS: INSULIN ASPART 100 UNIT/ML 1 ML 10 ML VIAL SQ SCH ×4 (06:46→21:08)
[2018-03-30] MEDS: AMIODARONE 100 MG TAB PO SCH (07:58)
[2018-03-30] MEDS: FERROUS SULFATE 325 MG TAB PO SCH (07:58)
[2018-03-30] MEDS: predniSONE 20 MG TAB PO SCH (07:59)
[2018-03-30] MEDS: LURASIDONE 40 MG TAB PO SCH (07:59)
[2018-03-30] MEDS: METOPROLOL TARTRATE 25 MG TAB PO SCH ×2 (07:59→19:59)
[2018-03-30] MEDS: SYMBICORT 160-4.5 MCG INHALER INHALATION SCH ×2 (08:20→21:23)
[2018-03-30] MEDS: TIOTROPIUM 18 MCG/PUFF INHALER INHALATION SCH (08:20)
[2018-03-30] MEDS: ALBUTEROL NEBULIZED 2.5 MG/3 ML INHALATION SCH ×4 (08:21→21:25)
--- NOTE | 2018-03-30 10:01 | P.PN ---
Subjective Progress Note Date: 03/30/18 History of present illness: This is a 67-year-old female patient being seen examined and evaluated today on rounds for consultation. This patient was previously going for an lumbar epidural back injection when she became short of breath and had some chest pain. She was transferred over to [facility] emergency room for evaluation and treatment. Patient was noted to be slightly hypertensive with a systolic pressure in the 180s. She did receive 3 doses of nitro and aspirin as well as labetalol that did have positive results in relieving the patient's chest pain. She also had an EKG which did show showing sinus rhythm with PACs and a) bundle-branch block. Her troponins have been negative. She did have a heart catheterization in December 2017 with a stent to the proximal right coronary artery with mild disease involving the left main and mild disease involving the left circumflex she also had a stent in the mid LAD. She did have a chest x- ray that was negative for any acute cardiopulmonary process. She does have an underlying history of pulmonary edema and pulmonary fibrosis as well as a known right upper lobe pulmonary nodule.. The patient recently stopped her Xarelto for 3 days prior to going for her back injection. She did have her lumbar injection today. She also complained of some diffuse abdominal pain which she has had chronically in the past for her IBS. She also also known to have chronic hypoxic respiratory failure and uses 3-4 L of supplemental oxygen at home. Upon examination she is resting up in bed on 3-4 L of oxygen. Does have some shortness of breath with exertion and activity. Denies any cough or congestion or sputum production. She has been using her Symbicort at home. She is afebrile no further complaints. All labs and reports have been reviewed. Interval History: 03/17/18- patient seen seen examined and evaluated today on rounds. She is resting up in bed on 6 L of supplemental oxygen via nasal cannula. She does have shortness of breath with exertion and activity. She has had a cough with some congestion and yellow sputum today. All labs and reports have been reviewed. She continues to be worked up by primary services for abdominal discomfort. 03/18/2018: Patient seen and examined. Patient states she is feeling little bit better overall. She is complaining of continued chronic back pain. Her O2 saturation is 92% on 6 L nasal cannula. We will decrease her to 5 L nasal cannula and monitor her saturations closely. The patient denies shortness of breath, fevers, chills, cough 03/19/18-03/20/18- Please see Dr TIANNA Hyman notes 03/21/18- patient is being seen examined and evaluated today on rounds. She is resting up in bedside chair on high flow airflow. She is at 35 L and FiO2 of 35 %. She feels her breathing has been okay today. 03/22/18- patient is being seen examined and evaluated today on rounds. She did have a CTA yesterday which was negative for any PE, did show cardiomegaly and severe emphysema. She did undergo a bubble study and those results are pending as well. Her Symbicort was discontinued yesterday and she was put on Pulmicort and Perforomist however the patient did have a slight reaction to one of those, went into A. fib, therefore they were discontinued. We will put her back on Symbicort and add DuoNeb scheduled. We will continue to wean down her oxygen. She continues on high flow 35 L and FiO2 of 50%. 03/28/18- patient is being seen examined and evaluated today on rounds. She continues on 4 L of supplemental oxygen. She was denied A Trilogy home vent by her insurance company. Denies any chest pain today. She continues to be short of breath with exertion and activity. Afebrile, no further complaints 03/29/18- patient is being seen examined and evaluated today on rounds. She continues on 4 L of supplemental oxygen via nasal cannula which is her baseline. She continues to refuse nebulized breathing treatments, she will only comply with her Symbicort inhaler, and Spiriva. Neurology has seen the patient did review a MRI of the brain as well as an EEG they have since signed off and will follow the patient outpatient or on an as-needed basis only, cardiology has also seen the patient and have signed off as well will follow patient. Her breathing is at her baseline. Discharge planning underway, social work is working with the family in regards to possible rehab facility however daughter is reluctant, we recommend the patient does go to rehab. 03/30/18- patient is being seen examined and evaluated today on rounds. She continues on 4-5 L of supplemental oxygen via nasal cannula. Continues to refuse her nebulized breathing treatments. Does take Symbicort and Spiriva. Discharge planning underway. Afebrile no further complaints. Objective - Vital Signs Vital signs: Vital Signs Temp 98.5 F 03/30/18 04:00 Pulse 94 03/30/18 04:00 Resp 52 H 03/30/18 04:00 BP 136/88 03/30/18 04:00 Pulse Ox 96 03/30/18 04:00 Intake & Output 03/29/18 03/30/18 03/30/18 18:59 06:59 18:59 Intake Total 3368 250 120 Output Total 250 Balance 3368 0 120 Weight 77.2 kg 78.4 kg Intake: Intake, IV Titration 550 250 Amount Sodium Chloride 0.9% 1, 550 250 000 ml @ 50 mls/hr IV . Q20H [facility] Rx#:[id number] Oral 2818 120 Output: Urine 250 Other: Voiding Method Bedside Commode Bedside Commode # Voids 4 1 # Bowel Movements 0 - Exam GENERAL EXAM: Alert, active, comfortable in no apparent distress. HEAD: Normocephalic. EYES: Normal reaction of pupils, equal size. NOSE: Clear with pink turbinates. THROAT: No erythema or exudates. NECK: No masses, no JVD. CHEST: No chest wall deformity. LUNGS: Equal air entry with no crackles, wheeze, rhonchi or dullness. Bases slightly diminished CVS: S1 and S2 normal with no audible mumurs, regular rhythm. ABDOMEN: No hepatosplenomegaly, normal bowel sounds, no guarding or rigidity. EXTREMITIES: No edema noted, pedal pulses palpable. CENTRAL NERVOUS SYSTEM: No focal deficits, tone is normal in all 4 extremities. - Labs CBC & Chem 7: 03/29/18 06:07 03/29/18 06:07 Labs: Abnormal Lab Results - Last 24 Hours (Table) 03/29/18 03/29/18 Range/Units 11:43 16:50 POC Glucose (mg/dL) 123 H 230 H (75-99) mg/dL Assessment and Plan Assessment: Assessment Tracheobronchitis Acute on Chronic hypoxic respiratory failure requiring supplemental oxygen, patient did require up to 5 L in the ER Known right upper lobe pulmonary nodule with pulmonary fibrosis Chest pain COPD not acutely exacerbated Chronic lower back pain with degenerative disc disease Generalized abdominal pain History of A. fib History of hypertension Status post lumbar epidural injection Plan Patient is cleared for discharge from pulmonary standpoint We recommend rehab facility upon discharge Medications have been reviewed and will be continued as ordered. Oral steroids, taper Continue with pulmonary hygiene, coughing and deep breathing exercises, and supportive care. Supplemental oxygen to maintain oxygen saturations of 92% or better. Initiate and encourage incentive spirometer She should continue with her Symbicort, and Spiriva Continue nebulizer treatments as needed. however she continues to refuse them Cardiology and neurology have signed off Echocardiogram reviewed EF 50-55% with RVSP of 49.5 GI and DVT prophylaxis. Increase activity as tolerated PT and OT We will continue to monitor labs/results and adjust treatment as necessary. Discharge planning I performed an examination of the patient and discussed their management with the nurse practitioner. I have reviewed the nurse practitioner's note and agree with the documented findings and plan of care.
[2018-03-30 11:53] LABS: Glucose,Whole Blood 121 mg/dL (75-99)
[2018-03-30 12:37] LABS: Anisocytosis Slight; Basophils # (A) 0.1 k/uL (0-0.2); Basophils % (A) 0 %; Eosinophils # (A) 0.1 k/uL (0-0.7); Eosinophils % (A) 1 %; HCT 48.8 % (34.0-46.0); HGB 14.8 gm/dL (11.4-16.0); Hypochromasia Slight; Lymphocytes # (A) 1.3 k/uL (1.0-4.8); Lymphocytes % (A) 6 %; MCH 25.8 pg (25.0-35.0); MCHC 30.3 g/dL (31.0-37.0); MCV 85.1 fL (80.0-100.0); Mean Platelet Volume 6.8; Monocytes # (A) 0.9 k/uL (0-1.0); Monocytes % (A) 4 %; Neutrophils # (A) 20.2 k/uL (1.3-7.7); Neutrophils % (A) 89 %; Platelet Count 249 k/uL (150-450); RBC 5.73 m/uL (3.80-5.40); RDW 17.7 % (11.5-15.5); WBC 22.6 k/uL (3.8-10.6)
[2018-03-30 12:46] LABS: Albumin 3.1 g/dL (3.5-5.0); Calcium 8.6 mg/dL (8.4-10.2); Potassium 5.5 mmol/L (3.5-5.1); Total Bilirubin 0.4 mg/dL (0.2-1.3); Total Protein 5.2 g/dL (6.3-8.2)
[2018-03-30] MEDS ORDERED: SODIUM POLYSTYRENE SULFONATE 15 GM/60 ML BOTTLE PO STA (14:31)
--- NOTE | 2018-03-30 16:02 | P.PN ---
Subjective Progress Note Date: 03/30/18 his is a 67-year-old female, patient of [facility]. Patient seen and evaluated in the ER. Patient has had previous history of myocardial infarction, coronary artery disease with 4 cardiac stents, paroxysmal atrial fibrillation, hypertension hyperlipidemia and former smoker. She also has a history of COPD hypothyroidism CVA vascular dementia, trigeminal neuralgia, obstructive sleep apnea, bowel syndrome, peripheral arterial disease with stents in the lower extremities and bipolar. Patient has a history of degenerative disc disease in the spine and was scheduled to have a epidural completed with pain management in the outpatient setting. Daughter was present with patient. Patient was in the room and getting undressed and ready for the procedure she reports feeling very anxious and becoming short of breath and having chest pain across the chest. Saw blood pressure was elevated at 180. At the pain management office she received 3 nitro and aspirin and a dose of labetalol. This helped relieve patient's chest pain. She was then brought into the emergency room for further evaluation in regards to her chest pain. EKG showing sinus rhythm with PACs and right bundle audra block. First troponin was negative. Patient's last heart catheterization was in December 2017 which showed patent stent in the proximal right coronary artery, mild disease involving the ostial left main, mild disease involving the left circumflex and patent stent in the mid LAD. At that time cardiology recommended maximize medical treatment. Chest x-ray shows no acute cardiopulmonary disease. Does reveal known underlying pulmonary edema on pulmonary fibrosis and a known right upper lobe pulmonary nodule. Patient's daughter reports that her mother is unable to participate in some of the day programs that she used to due to her pain. She will prefer if patient could receive the epidural injection for her back pain before restarting the Xarelto. Patient is also reporting during this chest pain episode that she had right-sided numbness which she's had on previous strokes. She has been off of her Xarelto for 3 days for the spinal epidural procedure. Patient admits to some nausea. Denies any vomiting bowel movement changes or urinary symptoms. Denies any cough fever or chills or sweats. Denies any facial droop or slurred speech. She also reports having some right lower abdominal pain. Daughter reports this is consistent with patient's history of IBS. Patient also has a history of chronic hypoxic respiratory failure and has been on 3 L oxygen at home. Cardiology and pain service has been consulted. Patient daughter reports that her mother had been on Ativan and [place] previously after her stay at [facility] in December. However, her PCP will not refill his medications and wanted her mother to stop taking them. She has only been using Tylenol for pain control. On 03/16/2018 patient is currently resting. Planning for epidural injection this afternoon. Ultrasound of abdomen completed showing no acute abdominal process. Per cardiology 2-D echo has been ordered and aspirin has been decreased to [address] of abdomen and pelvis has been ordered due to recent weight loss. Amalyse and lipase levels have been ordered. Pulmonary services have been consulted. 03/17/2018 patient is status post lumbar epidural injection. She is reporting improvement in her back pain and chest pain. Xarelto will be resumed today. She was also started on doxycycline and prednisone per pulmonary service for bronchitis. Patient reports a good appetite. Computed tomography scan of the abdomen shows no acute changes. Abdominal ultrasound was negative. Patient was hypotensive this morning she is on Midodrine and repeat blood pressure show improvement 109/62. Patient denies any nausea or vomiting. Denies any bowel movement changes or urinary symptoms. She reports that she starting to feel better. 03/18/2018 patient reports improvement in her back pain. She is still having some chest pains that are reproducible with palpation. Xarelto was restarted yesterday. Patient worked with physical therapy this morning and became very short of breath. Oxygen had been increased to 10 L. She was able to recover and then option came back down to 6 L at 96%. She has been on 3 L of oxygen at home. She is complaining of constipation bowel movements been very small. She had a slight increase in her liver enzymes AST 74 and ALT 84 Lipitor discontinued. Patient has been cleared by cardiology and pulmonary service for discharge on 03/19/2018 patient is alert and oriented in no distress, she reports improvement in her back pain. Patient worked with physical therapy this morning and became very short of breath. Oxygen had been increased to 10 L. yesterday She was able to recover and then option came back down to 6 L at 96%. Now she is on BiPAP She has been on 3 L of oxygen at home. She is complaining of constipation otherwise she denies any complaints. On 03/20/2018 patient is alert and oriented in no apparent distress she was seen and examined on 6 floor she was refusing BiPAP yesterday and now she is maintained on high flow oxygen she denies any chest pain or shortness of breath she denies any palpitation or cough there is no nausea or vomiting no abdominal pain no diarrhea and no urinary symptoms. 03/21/2018 patient still requiring high flow oxygen via AIRVO at 35L. patient reports shortness of breath when she was getting cleaned up earlier this morning. She denies any chest pains. Denies any nausea or vomiting. Denies bowel movement changes or urinary symptoms. She was started on Solu-Medrol over the weekend. 03/22/2018 yesterday patient was placed on Pulmicort and Perforomist. She had a slight reaction became flushed some shortness of breath and went into atrial fibrillation. Patient does have a known history of atrial fibrillation. Pulmicort and Perforomist have been discontinued. Patient has been seen by pulmonary service and they have ordered DuoNeb updrafts and Symbicort was restarted. CTA was negative for PE did show cardiomegaly and severe emphysema. Patient had echo with bubble study done results are pending. She is still on the earlobe oh FiO2 of 50% with flow rate of 35. On 03/23/2018 patient currently resting comfortably bed. Patient remains on Airvo at 40%. Patient remains on IV steroids. Patient denies chest pain or shortness of breath. 03/24/2018 patient having multiple stools through the night. Patient reports his stools are more mushy than liquidy. Stool for C. diff will be ordered. Potassium remains at 5.6. She did receive her potassium supplement yesterday. Even with elevated potassium. Potassium supplement discontinued. Kayexalate 30 g ordered but patient is having diarrhea nursing staff gave 15 g. We'll repeat a potassium level at 12:00. Sodium level dropped to 131. Patient denies any nausea or vomiting. Denies any chest pain. Reports in the chest pain and back pain. Denies any burning with urination. Still on the AIRVO at 40% 03/25/2018 patient is reporting that she still having a lot of stools. Stool has been ordered for C. diff and still has not been collected. Discussed with nursing staff to please collect the stool sample. Also patient's potassium is at 5.4. She is still eating potassium-rich foods. Again instructed patient and nursing staff the patient has to avoid potassium food. Patient is off of the AIRVO and on on 4 L of oxygen satting at 93%. Does report some improvement in her shortness of breath. Apparently she again was having some right sided weakness. Neurology has ordered an MRI of the brain. Discussed case with case operator. Paperwork has been submitted for the noninvasive ventilator. 03/27/2018, patient seen and evaluated examined during the rounds clinically overall not much change patient is being treated for acute COPD exacerbation as well as the pulmonary fibrosis overall doing better no obvious distress is present hemodynamic status stable tolerating bronchodilators very well cardiovascular services have signed off, neurological services are following and numbness has improved now 03/28/2018, patient overall doing well on 4 L oxygen noted that the home ventilator has been disapproved by the insurance company due to weak indication , patient underwent EEG MG as well as the MRI of the brain CT and reviewed detailed report 03/29/2018 patient currently resting in bed on 4 L of oxygen. Patient denies chest pain or shortness breath. patient does complain of some right-sided weakness but according to neurology may be chronic. Discussed with case management, possible need rehab. 03/30/2018 white blood cell elevating to 22.6 patient is on steroids. Potassium 5.5 Foot has been ordered. ALT increasing to 110 and AST 47 will order routine be labs in the morning continue to monitor closely. Patient denies chest pain or shortness of breath. Planning on possible discharge in the next day or so to home with home healthcare. Objective - Vital Signs Vital signs: Vital Signs Temp 98.3 F 03/30/18 11:53 Pulse 94 03/30/18 12:00 Resp 18 03/30/18 12:00 BP 95/70 03/30/18 11:53 Pulse Ox 91 L 03/30/18 11:53 Intake & Output 03/29/18 03/30/18 03/30/18 18:59 06:59 18:59 Intake Total 3368 250 360 Output Total 250 Balance 3368 0 360 Weight 77.2 kg 78.4 kg Intake: Intake, IV Titration 550 250 Amount Sodium Chloride 0.9% 1, 550 250 000 ml @ 50 mls/hr IV . Q20H [facility] Rx#:[id number] Oral 2818 360 Output: Urine 250 Other: Voiding Method Bedside Commode Bedside Commode # Voids 4 1 # Bowel Movements 0 - Exam Head normocephalic Neck supple Lungs crackles at bases Heart irregular. A. fib on monitor heart rate 86 Abdomen is soft nontender nondistended positive bowel sounds no hepatosplenomegaly Extremities no edema Neuro alert and orientated to 3 - Labs CBC & Chem 7: 03/30/18 12:14 03/30/18 12:14 Labs: Abnormal Lab Results - Last 24 Hours (Table) 03/29/18 03/30/18 03/30/18 Range/Units 16:50 11:52 12:14 WBC 22.6 H (3.8-10.6) k/uL RBC 5.73 H (3.80-5.40) m/uL Hct 48.8 H (34.0-46.0) % MCHC 30.3 L (31.0-37.0) g/dL RDW 17.7 H (11.5-15.5) % Neutrophils # 20.2 H (1.3-7.7) k/uL Sodium (137-145) mmol/L Potassium (3.5-5.1) mmol/L Chloride (98-107) mmol/L Carbon Dioxide (22-30) mmol/L BUN (7-17) mg/dL Glucose (74-99) mg/dL POC Glucose (mg/dL) 230 H 121 H (75-99) mg/dL AST (14-36) U/L ALT (9-52) U/L Total Protein (6.3-8.2) g/dL Albumin (3.5-5.0) g/dL 03/30/18 Range/Units 12:14 WBC (3.8-10.6) k/uL RBC (3.80-5.40) m/uL Hct (34.0-46.0) % MCHC (31.0-37.0) g/dL RDW (11.5-15.5) % Neutrophils # (1.3-7.7) k/uL Sodium 134 L (137-145) mmol/L Potassium 5.5 H (3.5-5.1) mmol/L Chloride 108 H (98-107) mmol/L Carbon Dioxide 20 L (22-30) mmol/L BUN 29 H (7-17) mg/dL Glucose 113 H (74-99) mg/dL POC Glucose (mg/dL) (75-99) mg/dL AST 47 H (14-36) U/L ALT 110 H (9-52) U/L Total Protein 5.2 L (6.3-8.2) g/dL Albumin 3.1 L (3.5-5.0) g/dL Assessment and Plan Assessment: 1. Chest pain: Likely muscle skeletal secondary to the tracheobronchitis. EKG sinus rhythm with PACs and right bundle audra block. Cardiac enzymes negative 3 sets. Patient seen by cardiology echo showing an EF of 50-55%. They've decreased aspirin to 81 mg daily. Cardiology has signed off 2. Chronic lower back pain with degenerative disc disease. Status post lumbar epidural and injection. Back pain improved. Continue [place] 3. Right-sided numbness during the chest pain episode. Now resolved. Patient has been off of Xarelto for 3 days. Computed tomography scan of the brain showing right frontal lobe encephalomalcia without change compared to old exam. no acute intracranial abnormality. Patient apparently reported again a right- sided sensation loss. Neurology consulted and an MRI of the brain was ordered. Per neurology MRI of the brain showed encephalomalacia within the right frontal lobe from prior infarct in the distribution of the middle cerebral artery. 4. Right lower quadrant abdominal pain. Improved. Abdominal ultrasound and computed tomography scan the abdomen showing no acute abnormality. Amylase lipase and LFTs all within normal range. Urinalysis negative no evidence of UTI 5. History of paroxysmal atrial fibrillation on amiodarone. Continue Xarelto 6. Essential hypertension. Elevated blood pressure outpatient receiving extra labetalol. Patient usually has hypotension and is on midodrine 7. Right upper lobe pulmonary nodule and possible pulmonary fibrosis being followed outpatient with pulmonary service 8. Acute on chronic Chronic hypoxic respiratory failure home O2 dependent usually uses 3 L of oxygen. Patient currently requiring 6 L. Possibly related to her bronchitis and COPD. doxycycline has been DC'd. Patient remains on prednisone 9. Acute COPD exacerbation: Continue IV Solu-Medrol. patient refusing nebulizer treatments. She is now off the AIRVO and on 4L of oxygen satting at 93%. Patient currently on 4 L nasal cannula and oral prednisone 10. History of CVA 11. history of myocardial infarction and coronary artery disease with previous cardiac stents 12. History of bipolar continue Latuda and Trileptal 13. History of Renal cancer status post right nephrectomy 14. Acute tracheobronchitis: Seen by pulmonary service started on doxycycline and IV Solu-Medrol. Patient remains on oral prednisone 15. Mildly elevated LFTs. Have improved. Discontinue Lipitor. Repeat labs in a.m. ALT increasing to 110 and AST 47. A.m. labs have been ordered we'll continue to monitor 16. Constipation now resolved. Patient now having loose stools. Discontinue Colace and FiberCon. Awaiting stool for C. diff 17. Hyperkalemia: Potassium 5.6 Discontinue potassium supplement. Kayexalate 30 g initially ordered for patient. However she is having loose is stools. Also she'll receive Kayexalate 15 g. Repeat potassium level at noon patient still having some hyperkalemia potassium 5.4. She is eating potassium-rich foods. Patient has been educated to avoid these foods as well as the nursing staff. Potassium currently 5.3 we'll continue to monitor closely. Potassium 5.5 today Kayexalate has been ordered we'll recheck the morning 18. Hyponatremia: Sodium 131 likely related to patient's diarrhea. Sodium has increased to 133. We will restart normal saline at 50 mL an hour. Sodium currently 134 19. Leukocytosis. White blood cell 22.6. Patient is on steroids. Will order recheck in the morning. Continue physical therapy GI prophylaxis Protonix and DVT prophylaxis Xarelto When patient is stable for discharge she'll be going home with home care I performed an examination of the patient and discussed their management with the Nurse Practitioner. I have reviewed the Nurse Practitioner's notes and agree with the documented findings and plan of care
[2018-03-30 16:31] LABS: Glucose,Whole Blood 103 mg/dL (75-99)
[2018-03-30] MEDS: RIVAROXABAN 15 MG TAB PO SCH (16:59)
[2018-03-30] MEDS: PARoxetine 10 MG TAB PO SCH (19:59)
[2018-03-30] MEDS: OXcarbazepine 150 MG TAB PO SCH (19:59)
[2018-03-30] MEDS: MONTELUKAST 10 MG TAB PO SCH (19:59)
[2018-03-30] MEDS: MELATONIN 3 MG TABLET PO SCH (20:00)
[2018-03-30 20:55] LABS: Glucose,Whole Blood 142 mg/dL (75-99)
[2018-03-31] MEDS: NITROGLYCERIN OINT 1 INCH/GM PACKET TOPICAL SCH ×3 (02:06→17:28)
[2018-03-31] MEDS: SODIUM CHLORIDE 0.9% 1,000 ML IV SCH (02:06)
[2018-03-31] MEDS: MIDODRINE 5 MG TAB PO SCH ×3 (06:02→17:28)
[2018-03-31] MEDS: LEVOTHYROXINE 100 MCG TAB PO SCH (06:02)
[2018-03-31] MEDS: PANTOPRAZOLE 40 MG TABLET PO SCH (06:03)
[2018-03-31 06:09] LABS: Glucose,Whole Blood 91 mg/dL (75-99)
[2018-03-31] MEDS: INSULIN ASPART 100 UNIT/ML 1 ML 10 ML VIAL SQ SCH ×3 (06:14→17:28)
[2018-03-31 06:15] LABS: Anisocytosis Slight; Basophils # (A) 0.1 k/uL (0-0.2); Basophils % (A) 0 %; Eosinophils # (A) 0.1 k/uL (0-0.7); Eosinophils % (A) 0 %; HCT 45.8 % (34.0-46.0); HGB 13.9 gm/dL (11.4-16.0); Hypochromasia Slight; Lymphocytes # (A) 1.3 k/uL (1.0-4.8); Lymphocytes % (A) 6 %; MCHC 30.4 g/dL (31.0-37.0); MCV 85.5 fL (80.0-100.0); Mean Platelet Volume 6.6; Monocytes # (A) 0.8 k/uL (0-1.0); Monocytes % (A) 4 %; Neutrophils # (A) 18.2 k/uL (1.3-7.7); Neutrophils % (A) 89 %; Platelet Count 244 k/uL (150-450); RBC 5.36 m/uL (3.80-5.40); WBC 20.4 k/uL (3.8-10.6)
[2018-03-31 06:54] LABS: Calcium 8.5 mg/dL (8.4-10.2); Total Bilirubin 0.5 mg/dL (0.2-1.3); Total Protein 5.2 g/dL (6.3-8.2)
[2018-03-31 06:56] LABS: Potassium 4.6 mmol/L (3.5-5.1)
[2018-03-31] MEDS: TIOTROPIUM 18 MCG/PUFF INHALER INHALATION SCH (08:44)
[2018-03-31] MEDS: SYMBICORT 160-4.5 MCG INHALER INHALATION SCH ×2 (08:44→20:05)
[2018-03-31] MEDS: ALBUTEROL NEBULIZED 2.5 MG/3 ML INHALATION SCH ×4 (09:03→20:04)
[2018-03-31] MEDS: FERROUS SULFATE 325 MG TAB PO SCH (09:47)
[2018-03-31] MEDS: LURASIDONE 40 MG TAB PO SCH (09:47)
[2018-03-31] MEDS: METOPROLOL TARTRATE 25 MG TAB PO SCH (09:47)
[2018-03-31] MEDS: AMIODARONE 100 MG TAB PO SCH (09:47)
[2018-03-31] MEDS: predniSONE 20 MG TAB PO SCH (09:48)
--- NOTE | 2018-03-31 10:16 | P.PN ---
Subjective Progress Note Date: 03/31/18 History of present illness: This is a 67-year-old female patient being seen examined and evaluated today on rounds for consultation. This patient was previously going for an lumbar epidural back injection when she became short of breath and had some chest pain. She was transferred over to [facility] emergency room for evaluation and treatment. Patient was noted to be slightly hypertensive with a systolic pressure in the 180s. She did receive 3 doses of nitro and aspirin as well as labetalol that did have positive results in relieving the patient's chest pain. She also had an EKG which did show showing sinus rhythm with PACs and a) bundle-branch block. Her troponins have been negative. She did have a heart catheterization in December 2017 with a stent to the proximal right coronary artery with mild disease involving the left main and mild disease involving the left circumflex she also had a stent in the mid LAD. She did have a chest x- ray that was negative for any acute cardiopulmonary process. She does have an underlying history of pulmonary edema and pulmonary fibrosis as well as a known right upper lobe pulmonary nodule.. The patient recently stopped her Xarelto for 3 days prior to going for her back injection. She did have her lumbar injection today. She also complained of some diffuse abdominal pain which she has had chronically in the past for her IBS. She also also known to have chronic hypoxic respiratory failure and uses 3-4 L of supplemental oxygen at home. Upon examination she is resting up in bed on 3-4 L of oxygen. Does have some shortness of breath with exertion and activity. Denies any cough or congestion or sputum production. She has been using her Symbicort at home. She is afebrile no further complaints. All labs and reports have been reviewed. Interval History: 03/17/18- patient seen seen examined and evaluated today on rounds. She is resting up in bed on 6 L of supplemental oxygen via nasal cannula. She does have shortness of breath with exertion and activity. She has had a cough with some congestion and yellow sputum today. All labs and reports have been reviewed. She continues to be worked up by primary services for abdominal discomfort. 03/18/2018: Patient seen and examined. Patient states she is feeling little bit better overall. She is complaining of continued chronic back pain. Her O2 saturation is 92% on 6 L nasal cannula. We will decrease her to 5 L nasal cannula and monitor her saturations closely. The patient denies shortness of breath, fevers, chills, cough 03/19/18-03/20/18- Please see Dr TIANNA Hyman notes 03/21/18- patient is being seen examined and evaluated today on rounds. She is resting up in bedside chair on high flow airflow. She is at 35 L and FiO2 of 35 %. She feels her breathing has been okay today. 03/22/18- patient is being seen examined and evaluated today on rounds. She did have a CTA yesterday which was negative for any PE, did show cardiomegaly and severe emphysema. She did undergo a bubble study and those results are pending as well. Her Symbicort was discontinued yesterday and she was put on Pulmicort and Perforomist however the patient did have a slight reaction to one of those, went into A. fib, therefore they were discontinued. We will put her back on Symbicort and add DuoNeb scheduled. We will continue to wean down her oxygen. She continues on high flow 35 L and FiO2 of 50%. 03/28/18- patient is being seen examined and evaluated today on rounds. She continues on 4 L of supplemental oxygen. She was denied A Trilogy home vent by her insurance company. Denies any chest pain today. She continues to be short of breath with exertion and activity. Afebrile, no further complaints 03/29/18- patient is being seen examined and evaluated today on rounds. She continues on 4 L of supplemental oxygen via nasal cannula which is her baseline. She continues to refuse nebulized breathing treatments, she will only comply with her Symbicort inhaler, and Spiriva. Neurology has seen the patient did review a MRI of the brain as well as an EEG they have since signed off and will follow the patient outpatient or on an as-needed basis only, cardiology has also seen the patient and have signed off as well will follow patient. Her breathing is at her baseline. Discharge planning underway, social work is working with the family in regards to possible rehab facility however daughter is reluctant, we recommend the patient does go to rehab. 03/30/18- patient is being seen examined and evaluated today on rounds. She continues on 4-5 L of supplemental oxygen via nasal cannula. Continues to refuse her nebulized breathing treatments. Does take Symbicort and Spiriva. Discharge planning underway. Afebrile no further complaints. 03/31/18- patient is being seen examined and evaluated today on rounds. He is resting up in bed on 4-5 L of supplemental oxygen. Her breathing continues to be at baseline. She is being prepared for discharge home with home care. Steroid taper e-prescription has been provided as well as Spiriva and Symbicort prescription. No overnight events Objective - Vital Signs Vital signs: Vital Signs Temp 98.5 F 03/31/18 09:15 Pulse 95 03/31/18 09:15 Resp 18 03/31/18 09:15 BP 141/87 03/31/18 09:15 Pulse Ox 96 03/31/18 09:15 Intake & Output 03/30/18 03/31/18 03/31/18 18:59 06:59 18:59 Intake Total 600 360 Output Total 600 Balance 600 -600 360 Weight 79.2 kg Intake: Oral 600 360 Output: Urine 600 Other: Voiding Method Bedside Commode Bedside Commode # Voids 3 # Bowel Movements 0 - Exam GENERAL EXAM: Alert, active, comfortable in no apparent distress. HEAD: Normocephalic. EYES: Normal reaction of pupils, equal size. NOSE: Clear with pink turbinates. THROAT: No erythema or exudates. NECK: No masses, no JVD. CHEST: No chest wall deformity. LUNGS: Equal air entry with no crackles, wheeze, rhonchi or dullness. Bases slightly diminished CVS: S1 and S2 normal with no audible mumurs, regular rhythm. ABDOMEN: No hepatosplenomegaly, normal bowel sounds, no guarding or rigidity. EXTREMITIES: No edema noted, pedal pulses palpable. CENTRAL NERVOUS SYSTEM: No focal deficits, tone is normal in all 4 extremities. - Labs CBC & Chem 7: 03/31/18 05:41 03/31/18 05:41 Labs: Abnormal Lab Results - Last 24 Hours (Table) 03/30/18 03/30/18 03/30/18 Range/Units 11:52 12:14 12:14 WBC 22.6 H (3.8-10.6) k/uL RBC 5.73 H (3.80-5.40) m/uL Hct 48.8 H (34.0-46.0) % MCHC 30.3 L (31.0-37.0) g/dL RDW 17.7 H (11.5-15.5) % Neutrophils # 20.2 H (1.3-7.7) k/uL Sodium 134 L (137-145) mmol/L Potassium 5.5 H (3.5-5.1) mmol/L Chloride 108 H (98-107) mmol/L Carbon Dioxide 20 L (22-30) mmol/L BUN 29 H (7-17) mg/dL Glucose 113 H (74-99) mg/dL POC Glucose (mg/dL) 121 H (75-99) mg/dL AST 47 H (14-36) U/L ALT 110 H (9-52) U/L Total Protein 5.2 L (6.3-8.2) g/dL Albumin 3.1 L (3.5-5.0) g/dL 03/30/18 03/30/18 03/31/18 Range/Units 16:29 20:54 05:41 WBC 20.4 H (3.8-10.6) k/uL RBC (3.80-5.40) m/uL Hct (34.0-46.0) % MCHC 30.4 L (31.0-37.0) g/dL RDW 18.0 H (11.5-15.5) % Neutrophils # 18.2 H (1.3-7.7) k/uL Sodium (137-145) mmol/L Potassium (3.5-5.1) mmol/L Chloride (98-107) mmol/L Carbon Dioxide (22-30) mmol/L BUN (7-17) mg/dL Glucose (74-99) mg/dL POC Glucose (mg/dL) 103 H 142 H (75-99) mg/dL AST (14-36) U/L ALT (9-52) U/L Total Protein (6.3-8.2) g/dL Albumin (3.5-5.0) g/dL 03/31/18 Range/Units 05:41 WBC (3.8-10.6) k/uL RBC (3.80-5.40) m/uL Hct (34.0-46.0) % MCHC (31.0-37.0) g/dL RDW (11.5-15.5) % Neutrophils # (1.3-7.7) k/uL Sodium 135 L (137-145) mmol/L Potassium (3.5-5.1) mmol/L Chloride (98-107) mmol/L Carbon Dioxide 20 L (22-30) mmol/L BUN 27 H (7-17) mg/dL Glucose (74-99) mg/dL POC Glucose (mg/dL) (75-99) mg/dL AST 47 H (14-36) U/L ALT 108 H (9-52) U/L Total Protein 5.2 L (6.3-8.2) g/dL Albumin 3.0 L (3.5-5.0) g/dL Assessment and Plan Assessment: Assessment Tracheobronchitis Acute on Chronic hypoxic respiratory failure requiring supplemental oxygen, patient did require up to 5 L in the ER Known right upper lobe pulmonary nodule with pulmonary fibrosis Chest pain COPD not acutely exacerbated Chronic lower back pain with degenerative disc disease Generalized abdominal pain History of A. fib History of hypertension Status post lumbar epidural injection Plan Patient is cleared for discharge from pulmonary standpoint We recommend rehab facility upon discharge, however patient does not want rehab E- prescribed steroid taper her Symbicort and Spiriva Medications have been reviewed and will be continued as ordered. Oral steroids, taper Continue with pulmonary hygiene, coughing and deep breathing exercises, and supportive care. Supplemental oxygen to maintain oxygen saturations of 92% or better. Initiate and encourage incentive spirometer Continue nebulizer treatments as needed. however she continues to refuse them Cardiology and neurology have signed off Echocardiogram reviewed EF 50-55% with RVSP of 49.5 GI and DVT prophylaxis. Increase activity as tolerated PT and OT We will continue to monitor labs/results and adjust treatment as necessary. Discharge planning I performed an examination of the patient and discussed their management with the nurse practitioner. I have reviewed the nurse practitioner's note and agree with the documented findings and plan of care.
[2018-03-31 11:47] LABS: Glucose,Whole Blood 88 mg/dL (75-99)
--- NOTE | 2018-03-31 14:04 | P.DS ---
Providers Date of admission: 03/17/18 15:41 Expected date of discharge: 03/31/18 Attending physician: Abelardo Kelly Consults: 03/15/18 14:37 Consult Physician Urgent Consulting Provider: [facility] Consult Reason/Comments: Chest pain Do you want consulting provider notified?: Yes 03/15/18 15:01 Consult Physician Urgent Consulting Provider: Otis King Consult Reason/Comments: Back pain Do you want consulting provider notified?: Yes 03/16/18 12:51 Consult Physician Routine Consulting Provider: Florinda Hutchinson Consult Reason/Comments: previous patient Do you want consulting provider notified?: Yes 03/24/18 21:44 Consult Physician Stat Consulting Provider: Lanie Chau Consult Reason/Comments: right sided pain, decreased sensation, and c/o weakness Do you want consulting provider notified?: Already Contacted Primary care physician: Lolita Fraga Hospital Course: Discharge summary 1. Chest pain: Likely muscle skeletal secondary to the tracheobronchitis. EKG sinus rhythm with PACs and right bundle audra block. Cardiac enzymes negative 3 sets. Patient seen by cardiology echo showing an EF of 50-55%. They've decreased aspirin to 81 mg daily. Cardiology has signed off 2. Chronic lower back pain with degenerative disc disease. Status post lumbar epidural and injection. Back pain improved. Continue Hammond 3. Right-sided numbness during the chest pain episode. Now resolved. Patient has been off of Xarelto for 3 days. Computed tomography scan of the brain showing right frontal lobe encephalomalcia without change compared to old exam. no acute intracranial abnormality. Patient apparently reported again a right- sided sensation loss. Neurology consulted and an MRI of the brain was ordered. Per neurology MRI of the brain showed encephalomalacia within the right frontal lobe from prior infarct in the distribution of the middle cerebral artery. 4. Right lower quadrant abdominal pain. Improved. Abdominal ultrasound and computed tomography scan the abdomen showing no acute abnormality. Urinalysis negative no evidence of UTI 5. History of paroxysmal atrial fibrillation on amiodarone. Continue Xarelto 6. Essential hypertension. Elevated blood pressure outpatient receiving extra labetalol. Patient usually has hypotension and is on midodrine 7. Right upper lobe pulmonary nodule and possible pulmonary fibrosis being followed outpatient with pulmonary service 8. Acute on chronic Chronic hypoxic respiratory failure home O2 dependent usually uses 3 L of oxygen. Patient currently requiring 6 L. Possibly related to her bronchitis and COPD. doxycycline has been DC'd. Patient remains on prednisone taper patient will go home on 5 L of oxygen 9. Acute COPD exacerbation: Continue IV Solu-Medrol. patient refusing nebulizer treatments. She is now off the AIRVO and on 4L of oxygen satting at 93%. Patient currently on 5 L nasal cannula and oral prednisone 10. History of CVA 11. history of myocardial infarction and coronary artery disease with previous cardiac stents 12. History of bipolar continue Latuda and Trileptal 13. History of Renal cancer status post right nephrectomy 14. Acute tracheobronchitis: Seen by pulmonary service started on doxycycline and IV Solu-Medrol. Patient remains on oral prednisone 15. Mildly elevated LFTs. Have improved. Discontinue Lipitor. Repeat labs in a.m. ALT increasing to 110 and AST 47. A.m. labs have been ordered we'll continue to monitor. AST 47, ALT 108. Lipitor will be discontinued on discharge. Patient to follow-up closely with primary care provider 16. Constipation now resolved. Patient now having loose stools. Discontinue Colace and FiberCon. Awaiting stool for C. diff 17. Hyperkalemia: Potassium 5.6 Discontinue potassium supplement. Kayexalate 30 g initially ordered for patient. However she is having loose is stools. Also she'll receive Kayexalate 15 g. Repeat potassium level at noon patient still having some hyperkalemia potassium 5.4. She is eating potassium-rich foods. Patient has been educated to avoid these foods as well as the nursing staff. Potassium currently 5.3 we'll continue to monitor closely. Potassium 5.5 today Kayexalate has been ordered we'll recheck the morning. Repeat potassium 4.6. Potassium supplement has been discontinued upon discharge. She to follow-up closely with primary care provider 18. Hyponatremia: Sodium 131 likely related to patient's diarrhea. Sodium has increased to 133. We will restart normal saline at 50 mL an hour. Sodium improving to 135. Patient to follow-up closely with primary care provider 19. Leukocytosis. White blood cell 22.6. Patient is on steroids. Will order recheck in the morning. WBC is 20.4 likely related to steroids. Patient to follow-up closely outpatient with primary care provider Hospital course his is a 67-year-old female, patient of [facility]. Patient seen and evaluated in the ER. Patient has had previous history of myocardial infarction, coronary artery disease with 4 cardiac stents, paroxysmal atrial fibrillation, hypertension hyperlipidemia and former smoker. She also has a history of COPD hypothyroidism CVA vascular dementia, trigeminal neuralgia, obstructive sleep apnea, bowel syndrome, peripheral arterial disease with stents in the lower extremities and bipolar. Patient has a history of degenerative disc disease in the spine and was scheduled to have a epidural completed with pain management in the outpatient setting. Daughter was present with patient. Patient was in the room and getting undressed and ready for the procedure she reports feeling very anxious and becoming short of breath and having chest pain across the chest. Saw blood pressure was elevated at 180. At the pain management office she received 3 nitro and aspirin and a dose of labetalol. This helped relieve patient's chest pain. She was then brought into the emergency room for further evaluation in regards to her chest pain. EKG showing sinus rhythm with PACs and right bundle audra block. First troponin was negative. Patient's last heart catheterization was in December 2017 which showed patent stent in the proximal right coronary artery, mild disease involving the ostial left main, mild disease involving the left circumflex and patent stent in the mid LAD. At that time cardiology recommended maximize medical treatment. Chest x-ray shows no acute cardiopulmonary disease. Does reveal known underlying pulmonary edema on pulmonary fibrosis and a known right upper lobe pulmonary nodule. Patient's daughter reports that her mother is unable to participate in some of the day programs that she used to due to her pain. She will prefer if patient could receive the epidural injection for her back pain before restarting the Xarelto. Patient is also reporting during this chest pain episode that she had right-sided numbness which she's had on previous strokes. She has been off of her Xarelto for 3 days for the spinal epidural procedure. Patient admits to some nausea. Denies any vomiting bowel movement changes or urinary symptoms. Denies any cough fever or chills or sweats. Denies any facial droop or slurred speech. She also reports having some right lower abdominal pain. Daughter reports this is consistent with patient's history of IBS. Patient also has a history of chronic hypoxic respiratory failure and has been on 3 L oxygen at home. Cardiology and pain service has been consulted. Patient daughter reports that her mother had been on Ativan and Hammond previously after her stay at [facility] in December. However, her PCP will not refill his medications and wanted her mother to stop taking them. She has only been using Tylenol for pain control. On 03/16/2018 patient is currently resting. Planning for epidural injection this afternoon. Ultrasound of abdomen completed showing no acute abdominal process. Per cardiology 2-D echo has been ordered and aspirin has been decreased to [address] of abdomen and pelvis has been ordered due to recent weight loss. Amalyse and lipase levels have been ordered. Pulmonary services have been consulted. 03/17/2018 patient is status post lumbar epidural injection. She is reporting improvement in her back pain and chest pain. Xarelto will be resumed today. She was also started on doxycycline and prednisone per pulmonary service for bronchitis. Patient reports a good appetite. Computed tomography scan of the abdomen shows no acute changes. Abdominal ultrasound was negative. Patient was hypotensive this morning she is on Midodrine and repeat blood pressure show improvement 109/62. Patient denies any nausea or vomiting. Denies any bowel movement changes or urinary symptoms. She reports that she starting to feel better. 03/18/2018 patient reports improvement in her back pain. She is still having some chest pains that are reproducible with palpation. Xarelto was restarted yesterday. Patient worked with physical therapy this morning and became very short of breath. Oxygen had been increased to 10 L. She was able to recover and then option came back down to 6 L at 96%. She has been on 3 L of oxygen at home. She is complaining of constipation bowel movements been very small. She had a slight increase in her liver enzymes AST 74 and ALT 84 Lipitor discontinued. Patient has been cleared by cardiology and pulmonary service for discharge on 03/19/2018 patient is alert and oriented in no distress, she reports improvement in her back pain. Patient worked with physical therapy this morning and became very short of breath. Oxygen had been increased to 10 L. yesterday She was able to recover and then option came back down to 6 L at 96%. Now she is on BiPAP She has been on 3 L of oxygen at home. She is complaining of constipation otherwise she denies any complaints. On 03/20/2018 patient is alert and oriented in no apparent distress she was seen and examined on 6 floor she was refusing BiPAP yesterday and now she is maintained on high flow oxygen she denies any chest pain or shortness of breath she denies any palpitation or cough there is no nausea or vomiting no abdominal pain no diarrhea and no urinary symptoms. 03/21/2018 patient still requiring high flow oxygen via AIRVO at 35L. patient reports shortness of breath when she was getting cleaned up earlier this morning. She denies any chest pains. Denies any nausea or vomiting. Denies bowel movement changes or urinary symptoms. She was started on Solu-Medrol over the weekend. 03/22/2018 yesterday patient was placed on Pulmicort and Perforomist. She had a slight reaction became flushed some shortness of breath and went into atrial fibrillation. Patient does have a known history of atrial fibrillation. Pulmicort and Perforomist have been discontinued. Patient has been seen by pulmonary service and they have ordered DuoNeb updrafts and Symbicort was restarted. CTA was negative for PE did show cardiomegaly and severe emphysema. Patient had echo with bubble study done results are pending. She is still on the earlobe oh FiO2 of 50% with flow rate of 35. On 03/23/2018 patient currently resting comfortably bed. Patient remains on Airvo at 40%. Patient remains on IV steroids. Patient denies chest pain or shortness of breath. 03/24/2018 patient having multiple stools through the night. Patient reports his stools are more mushy than liquidy. Stool for C. diff will be ordered. Potassium remains at 5.6. She did receive her potassium supplement yesterday. Even with elevated potassium. Potassium supplement discontinued. Kayexalate 30 g ordered but patient is having diarrhea nursing staff gave 15 g. We'll repeat a potassium level at 12:00. Sodium level dropped to 131. Patient denies any nausea or vomiting. Denies any chest pain. Reports in the chest pain and back pain. Denies any burning with urination. Still on the AIRVO at 40% 03/25/2018 patient is reporting that she still having a lot of stools. Stool has been ordered for C. diff and still has not been collected. Discussed with nursing staff to please collect the stool sample. Also patient's potassium is at 5.4. She is still eating potassium-rich foods. Again instructed patient and nursing staff the patient has to avoid potassium food. Patient is off of the AIRVO and on on 4 L of oxygen satting at 93%. Does report some improvement in her shortness of breath. Apparently she again was having some right sided weakness. Neurology has ordered an MRI of the brain. Discussed case with case worker. Paperwork has been submitted for the noninvasive ventilator. 03/27/2018, patient seen and evaluated examined during the rounds clinically overall not much change patient is being treated for acute COPD exacerbation as well as the pulmonary fibrosis overall doing better no obvious distress is present hemodynamic status stable tolerating bronchodilators very well cardiovascular services have signed off, neurological services are following and numbness has improved now 03/28/2018, patient overall doing well on 4 L oxygen noted that the home ventilator has been disapproved by the insurance company due to weak indication , patient underwent EEG MG as well as the MRI of the brain CT and reviewed detailed report 03/29/2018 patient currently resting in bed on 4 L of oxygen. Patient denies chest pain or shortness breath. patient does complain of some right-sided weakness but according to neurology may be chronic. Discussed with case management, possible need rehab. 03/30/2018 white blood cell elevating to 22.6 patient is on steroids. Potassium 5.5 Foot has been ordered. ALT increasing to 110 and AST 47 will order routine be labs in the morning continue to monitor closely. Patient denies chest pain or shortness of breath. Planning on possible discharge in the next day or so to home with home healthcare. On 03/31/2018 patient will be discharged home today with home healthcare. Patient states she lives at home with daughter. WBC improving slightly to 20.4. Potassium improving to 4.6. AST 47 and ALT 108. Lipitor will be discontinued upon discharge. Leukocytosis likely related to steroid use. Patient to follow-up closely with primary care provider Dr. Fraga. Patient will be going home on 5 L of oxygen. Pulmonary services have cleared patient for discharge and will follow-up outpatient. She to also follow-up outpatient with Dr. Torres per cardiology and pain services. I performed an examination of the patient and discussed their management with the Nurse Practitioner. I have reviewed the Nurse Practitioner's notes and agree with the documented findings and plan of care Patient Condition at Discharge: Stable Plan - Discharge Summary Discharge Rx Participant: No New Discharge Prescriptions: New Budesonide-Formot 160-4.5 Mcg [Symbicort 160-4.5 Mcg Inhaler] 2 puff INHALATION RT-BID puff predniSONE 10 mg PO DIRECTED #30 tab Tiotropium 18 Mcg/Puff [Spiriva] 1 puff INHALATION DAILY #1 inhaler HYDROcodone/APAP 5-325MG [Hammond 5-325] 1 each PO Q4HR PRN tab PRN Reason: Moderate Pain Continue PARoxetine HCL 30 mg PO HS OXcarbazepine [Trileptal] 150 mg PO HS Melatonin 3 mg PO HS Pantoprazole Sodium [Protonix] 40 mg PO DAILY Montelukast [Singulair] 10 mg PO HS Lurasidone HCl [Latuda] 20 mg PO DAILY Levothyroxine Sodium [Synthroid] 100 mcg PO DAILY@0600 Ferrous Sulfate [Iron (65 MG Elemental)] 325 mg PO DAILY Calcium Polycarbophil [Fibercon] 1,250 mg PO DAILY Rivaroxaban [Xarelto] 15 mg PO W/SUPPER #30 tab Nitroglycerin Sl Tabs [Nitrostat] 0.4 mg SUBLINGUAL Q5M PRN tab PRN Reason: Chest Pain Midodrine [ProAmatine] 5 mg PO TID #90 tablet Fluticasone/Vilanterol [Breo Ellipta 100-25 Mcg Inhaler] 1 puff INHALATION RT -DAILY Omeprazole [PriLOSEC] 20 mg PO DAILY Metoprolol Tartrate [Lopressor] 25 mg PO BID Amiodarone [Cordarone] 100 mg PO DAILY Discontinued Potassium Chloride [Klor-Con 10] 10 meq PO DAILY Atorvastatin Calcium [Lipitor] 20 mg PO HS Discharge Medication List PARoxetine HCL 30 mg PO HS 07/02/14 [History] OXcarbazepine [Trileptal] 150 mg PO HS 11/04/14 [History] Melatonin 3 mg PO HS 03/05/16 [History] Calcium Polycarbophil [Fibercon] 1,250 mg PO DAILY 06/13/17 [History] Ferrous Sulfate [Iron (65 MG Elemental)] 325 mg PO DAILY 06/13/17 [History] Levothyroxine Sodium [Synthroid] 100 mcg PO DAILY@0600 06/13/17 [History] Lurasidone HCl [Latuda] 20 mg PO DAILY 06/13/17 [History] Montelukast [Singulair] 10 mg PO HS 06/13/17 [History] Pantoprazole Sodium [Protonix] 40 mg PO DAILY 06/13/17 [History] Rivaroxaban [Xarelto] 15 mg PO W/SUPPER #30 tab 06/16/17 [Rx] Nitroglycerin Sl Tabs [Nitrostat] 0.4 mg SUBLINGUAL Q5M PRN tab 12/01/17 [Rx] Midodrine [ProAmatine] 5 mg PO TID #90 tablet 12/28/17 [Rx] Fluticasone/Vilanterol [Breo Ellipta 100-25 Mcg Inhaler] 1 puff INHALATION RT- DAILY 01/09/18 [History] Amiodarone [Cordarone] 100 mg PO DAILY 03/15/18 [History] Metoprolol Tartrate [Lopressor] 25 mg PO BID 03/15/18 [History] Omeprazole [PriLOSEC] 20 mg PO DAILY 03/15/18 [History] Budesonide-Formot 160-4.5 Mcg [Symbicort 160-4.5 Mcg Inhaler] 2 puff INHALATION RT-BID puff 03/30/18 [Rx] Tiotropium 18 Mcg/Puff [Spiriva] 1 puff INHALATION DAILY #1 inhaler 03/30/18 [Rx ] predniSONE 10 mg PO DIRECTED #30 tab 03/30/18 [Rx] HYDROcodone/APAP 5-325MG [Hammond 5-325] 1 each PO Q4HR PRN tab 03/31/18 [Rx] Follow up Appointment(s)/Referral(s): Connor Bernal MD [STAFF PHYSICIAN] - 04/11/18 2:15 pm Florinda Hutchinson DO [Doctor of Osteopathic Medicine] - 04/07/18 10:00 am ([id number] office) Lolita Fraga DO [Primary Care Provider] - 04/04/18 10:30 am (Wednesday with Kenna QUEEN) [facility] Visiting Nurse, [NON-STAFF] - Patient Instructions/Handouts: COPD (Chronic Obstructive Pulmonary Disease) (DC ), Chronic Lung Disease and Infection Prevention (DC) Activity/Diet/Wound Care/Special Instructions: Home with HC on D/C Patient has home oxygen - be sure she has portable tank for home transport, if not contact [facility] and they will deliver one to the bedside. Diet heart healthy Activity as tolerated Discharge Disposition: HOME WITH HOME HEALTH SERVICES
[2018-03-31 14:23] VITALS: RESP 16
[2018-03-31 16:18] LABS: Glucose,Whole Blood 115 mg/dL (75-99)
[2018-03-31 17:25] VITALS: BP 122/84; PULSE 98; TEMP 98.4
[2018-03-31] MEDS: HYDROcodone/APAP 5-325MG 1 EACH TAB PO PRN (17:27)
[2018-03-31] MEDS: RIVAROXABAN 15 MG TAB PO SCH (17:28)
== END 2018-03-31 19:00 | disposition home health service (06) | DRG 190 ==
LOC: EC 12:43 → 6SEL 14:37 → OBSVTOIN 03-17 15:41
PROVIDERS: ADMIT Internal Medicine; ATTEND Internal Medicine
PROC: B01B1ZZ Fluoroscopy of Spinal Cord using Low Osmolar Contrast (ICD-10-PCS; 2018-03-16)
PROC: 3E0R33Z Introduction of Anti-inflammatory into Spinal Canal, Percutaneous Approach (ICD-10-PCS; principal; 2018-03-16 12:13)
PROC: 5A09357 Assistance with Respiratory Ventilation, Less than 24 Consecutive Hours, Continuous Positive Airway Pressure (ICD-10-PCS; 2018-03-17)
DX: J43.9 Emphysema, unspecified (principal); G93.41 Metabolic encephalopathy; J96.21 Acute and chronic respiratory failure with hypoxia; E87.1 Hypo-osmolality and hyponatremia; J44.0 Chronic obstructive pulmonary disease with (acute) lower respiratory infection; E03.9 Hypothyroidism, unspecified; E78.00 Pure hypercholesterolemia, unspecified; E78.5 Hyperlipidemia, unspecified; E87.5 Hyperkalemia; F01.50 Vascular dementia, unspecified severity, without behavioral disturbance, psychotic disturbance, mood disturbance, and anxiety; F31.9 Bipolar disorder, unspecified; G25.81 Restless legs syndrome; G40.909 Epilepsy, unspecified, not intractable, without status epilepticus; G47.33 Obstructive sleep apnea (adult) (pediatric); G89.29 Other chronic pain; G93.89 Other specified disorders of brain; I25.10 Atherosclerotic heart disease of native coronary artery without angina pectoris; I25.2 Old myocardial infarction; I45.10 Unspecified right bundle-branch block; I48.0 Paroxysmal atrial fibrillation; I73.9 Peripheral vascular disease, unspecified; J20.9 Acute bronchitis, unspecified; J84.10 Pulmonary fibrosis, unspecified; K21.9 Gastro-esophageal reflux disease without esophagitis; K58.0 Irritable bowel syndrome with diarrhea; M47.26 Other spondylosis with radiculopathy, lumbar region; M46.96 Unspecified inflammatory spondylopathy, lumbar region; T38.0X5A Adverse effect of glucocorticoids and synthetic analogues, initial encounter; G50.0 Trigeminal neuralgia; M19.90 Unspecified osteoarthritis, unspecified site; M51.16 Intervertebral disc disorders with radiculopathy, lumbar region; R91.1 Solitary pulmonary nodule; T50.995A Adverse effect of other drugs, medicaments and biological substances, initial encounter; I11.9 Hypertensive heart disease without heart failure; R10.9 Unspecified abdominal pain; R20.0 Anesthesia of skin; I95.9 Hypotension, unspecified; G43.909 Migraine, unspecified, not intractable, without status migrainosus; K59.00 Constipation, unspecified; R79.89 Other specified abnormal findings of blood chemistry; D72.829 Elevated white blood cell count, unspecified; I49.1 Atrial premature depolarization; Z79.01 Long term (current) use of anticoagulants; Z79.899 Other long term (current) drug therapy; Z79.890 Hormone replacement therapy; Z99.81 Dependence on supplemental oxygen; Z95.820 Peripheral vascular angioplasty status with implants and grafts; Z95.5 Presence of coronary angioplasty implant and graft; Z90.710 Acquired absence of both cervix and uterus; Z90.5 Acquired absence of kidney; Z87.891 Personal history of nicotine dependence; Z85.528 Personal history of other malignant neoplasm of kidney; Z85.42 Personal history of malignant neoplasm of other parts of uterus; Z86.73 Personal history of transient ischemic attack (TIA), and cerebral infarction without residual deficits; Z87.440 Personal history of urinary (tract) infections; Z88.0 Allergy status to penicillin; Z88.8 Allergy status to other drugs, medicaments and biological substances; Z91.040 Latex allergy status; Y92.239 Unspecified place in hospital as the place of occurrence of the external cause; Z82.49 Family history of ischemic heart disease and other diseases of the circulatory system; Z82.5 Family history of asthma and other chronic lower respiratory diseases
CPT/HCPCS: 36415; 36600; 62323; 70450; 70551; 71046; 71275; 74176; 76700; 80053; 80061; 81003; 82103; 82104; 82150; 82550; 82553; 82805; 83036; 83090; 83690; 83735; 84132; 84484; 85025; 85379; 85610; 85730; 87086; 93005; 93306; 93308; 94640; 94660; 94760; 95819; 96374; 96375; 99285